=== PATIENT | female | born 1965 | race Caucasian/White ===

== ENCOUNTER 2018-01-17 12:48 | Outpatient (CLI) | payer MEDICARE, MEDICAID ==
[~2018-01-17] VITALS: Ht 165.1 cm; Wt 103.4 kg
[~2018-01-17 12:48] MED LIST: ACHD5005 PO; ATEN25TA PO; BUPR300T PO; DICL75TA2 PO; DOXY50CA6 PO; ESCT10T PO; EST.625T PO; GBPN300C PO; HYDR-34 PO; LEVO750T24 PO; MS15TCR PO; PRD20T PO; SIMV40TA4 PO; SULF-222 PO; VANC5VIA5 IV; ZLP10T PO
[2018-01-17] MEDS ORDERED: methylPREDNISolone 80 MG/ML (DEPO MEDROL) VIAL ONE (12:54)
[2018-01-17 13:04] VITALS: BP 145/99
[2018-01-17 13:31] VITALS: BP 139/85
== END 2018-01-17 13:32 ==
LOC: CARD 12:48
PROVIDERS: ATTEND Pain Medicine Interventional Pain Medicine
DX: M54.16 Radiculopathy, lumbar region (principal); Z79.899 Other long term (current) drug therapy; I10 Essential (primary) hypertension; F32.9 Major depressive disorder, single episode, unspecified; G89.4 Chronic pain syndrome
CPT/HCPCS: 62323

== ENCOUNTER → 2018-04-11 | Outpatient (CLI) | payer MEDICARE, MEDICAID ==
[~2018-04-11] VITALS: Ht 165.1 cm; Wt 105.7 kg
[~2018-04-11] MED LIST changes: +LIDOCAINE 1% INJ 20 ML 20 ML VIAL ONE; +methylPREDNISolone 80 MG/ML (DEPO MEDROL) VIAL ONE
[2018-04-11 13:43] VITALS: BP 168/87
[2018-04-11 14:09] VITALS: BP 157/102
--- NOTE | 2018-04-11 22:55 | OPERATIVE REPORT ---
DATE OF SERVICE: 04/11/2018 DIAGNOSIS: Lumbar radiculopathy. PROCEDURE: Fluoroscopic guided interlaminar epidural steroid injection. PROCEDURE IN DETAIL: After obtaining informed consent from the patient, the patient's chart was reviewed. The patient was then brought to the procedure room and placed in the prone position. A timeout was performed. The back was prepped with antiseptic solution and under fluoro guidance, the patient's lumbar spine was identified at the level of L5-S1. The L5-S1 vertebra was identified with fluoro guidance and approximately 2 mL of 1.5% lidocaine solution was used to anesthetize the skin directly down to the pedicle of the L5-S1 and under fluoroscopic guidance, the tract was anesthetized up to the interlaminar space and the ligamentum flavum. This needle was withdrawn. Then, a 20-gauge 3.5 inch Tuohy needle was then directed following the same tract that was anesthetized with the spinal needle. Using loss of resistance, the epidural space was identified and then the syringe was switched for contrast solution which was injected, approximately 1 mL. After secondary confirmation of epidural access, another syringe was placed and 80 mg of Depo-Medrol was injected. The Tuohy needle was then flushed out with approximately 2 mL of the normal saline used from the loss of resistance syringe. Band-Aids were applied to all the procedure sites. The patient tolerated the procedure well and was taken to the recovery room in stable condition. COMPLICATIONS: None. Job ID: [id number] DocumentID: [id number] Dictated Date: 04/11/2018 14:08:59 Senior Financial Consultant Date: 04/11/2018 17:16:44 Dictated By: KORTNEY DOYLE DO
== END ==
LOC: CARD 13:10
PROVIDERS: ATTEND Pain Medicine Interventional Pain Medicine
DX: M54.16 Radiculopathy, lumbar region (principal)
CPT/HCPCS: 62323

== ENCOUNTER 2018-07-09 11:41 | Inpatient (IN) | payer MEDICARE, MEDICAID ==
[~2018-07-09] VITALS: Ht 165.1 cm; Wt 104.8 kg
[~2018-07-09 11:41] MED LIST changes: -LIDOCAINE 1% INJ 20 ML 20 ML VIAL ONE; -methylPREDNISolone 80 MG/ML (DEPO MEDROL) VIAL ONE
--- OUTSIDE RECORDS SUMMARY | 2018-07-09 12:27 | XMS REPORT ---
Author Author ENRIQUE SIMPSON [facility] Address Unknown Care Team Providers Care Paper Inspector Name Role Phone ENRIQUE SIMPSON Unavailable PROBLEMS Type Condition ICD9-CM Code ZIG71-GM Code Onset Dates Condition Status SNOMED Code Problem Unspecified breast screening V76.10 Active 068303587 Problem Pain in soft tissues of limb 729.5 Active 68473080 Problem Counseling on substance use and abuse V65.42 Active 997144005 Problem Cervicalgia 723.1 Active 20033086 Problem Dietary surveillance and counseling V65.3 Active 443716770 Problem Pain in joint, lower leg 719.46 Active 881929216 Problem Pain in joint, shoulder region 719.41 Active 032188752 Problem Pain in joint, pelvic region and thigh 719.45 Active 334068578 Problem Other and unspecified hyperlipidemia 272.4 Active 82583646 Problem Obesity, unspecified 278.00 Active 834521522 Problem Falling from high place on residential premises, undetermined whether accidentally or purposely inflicted E987.0 Active Problem Hormone replacement therapy (postmenopausal) V07.4 Active 821548784 Problem Family history of malignant neoplasm of gastrointestinal tract V16.0 Active 149300819 Problem Cellulitis and abscess of unspecified site 682.9 Active 071209902 Problem Unspecified disorder of skin and subcutaneous tissue 709.9 Active 78824360 Problem Acute bronchitis 466.0 Active 10310778 Problem Thoracic or lumbosacral neuritis or radiculitis, unspecified 724.4 Active 298141879 Problem Chest pain, unspecified 786.50 Active 48609122 Problem Enlargement of lymph nodes 785.6 Active 76034692 Problem Neck sprain and strain 847.0 Active 387180719 Problem Sprain and strain of unspecified site of knee and leg 844.9 Active 373373890 Problem Other malaise and fatigue 780.79 Active 818946703 Problem Unspecified sleep apnea 780.57 Active 38081617 Problem Abnormal weight gain 783.1 Active 172072147 Problem Rash and other nonspecific skin eruption 782.1 Active 589763907 ALLERGIES Substance Reaction Event Type Date Status codeine Unknown Non Drug Allergy Sep, Active Sulfa (sulfonamide Antibiotics) Unknown Non Drug Allergy Sep, Active SOCIAL HISTORY No smoking Hx information available PLAN OF CARE Activity Details Follow Up prn Reason:referral-back for crown VITAL SIGNS Height 65 in 2016-10-13 Blood pressure systolic 126 mmHg 2016-10-13 Blood pressure diastolic 70 mmHg 2016-10-13 MEDICATIONS Medication Instructions Dosage Frequency Start Date End Date Duration Status Simvastatin 40 mg take 1 tablet by Oral route 1 time per day in the evening Jan, Active Triamcinolone Acetonide 0.1 % apply a thin layer to the affected area(s) by Topical route 3 times per day dispense 60 gram tube Oct, Active Amoxicillin 500 MG Orally 3 times a day 1 capsule 8h Sep, Sep, 7 days Active Hydrocodone-Acetaminophen 5-500 MG Orally every 6 hrs 1 tablet as needed 6h Active Neurontin 600 mg take 1 tablet by Oral route 4 times per day Jul, Active Baclofen 20 mg 1 tablet by Oral route 3 times per day PRN Oct, Active Naproxen 500 MG Orally every 12 hrs 1 tablet as needed 12h Active Pristiq 25 MG Orally Once a day 2 tablets 24h Active RESULTS No Results PROCEDURES Procedure Date Ordered Related Diagnosis Body Site LTD ORAL EVALUATION - PROBLEM FOCUS Oct 13, 2016 INTRAORL-PERIAPICAL 1 FILM 06818 Oct 13, 2016 IMMUNIZATIONS No Known Immunizations
--- OUTSIDE RECORDS SUMMARY | 2018-07-09 12:27 | XMS REPORT | Continuity of Care Document ---
Author Author [facility] Organization [facility] Address Unknown Phone Unavailable Care Team Providers Care Stripper Cutter Machine Name Role Phone LIVE DIAZ ELDON PP Insurance Providers Payer Name Policy Number Subscriber Name Relationship Wps Medicare [id number] Marleny Amezquita V Self / Same As Patient Advance Directives Directive Response Recorded Date Advance Directives N 03/01/13 9:59pm Health Care Power of Scrip Clerk N 03/01/13 9:59pm Organ Donor Y 03/01/13 9:59pm Problems No Known Problems or Medical conditions. Family History History Response Recorded Date/Time Hx Family Cancer Y mother, maternal aunt, uncle, paternal grandparents 03/01/13 10:12pm Hx Family Breast Cancer Y aunt 03/01/13 10:12pm Hx Family Lung Cancer Y maternal aunt 02/08 10:12pm Hx Family Colorectal Cancer Y aunt 10:12pm Social History History Response Recorded Date/Time Alcohol Use Denies Use 03/01/13 10:04pm Recreational Drug Use N 03/01/13 10:04pm Recent Foreign Travel N 03/01/13 10:04pm Recent Infectious Disease Exposure N 02/08 10:04pm Allergies, Adverse Reactions, Alerts Allergen Type Severity Reaction Last Updated oxycodone HCl Allergy Mild 09/29/11 Sulfa(Sulfonamide Antibiotics) Allergy Mild 09/29/11 acetaminophen Allergy Mild 09/29/11 Medications Medication Dose Units Route Sig Qty Days Prednisone 20 Mg PO DAILY Levofloxacin 750 Mg PO DAILY 6 Simvastatin 40 Mg PO DAILY Bupropion HCl (Wellbutrin Xl) 1 Tab PO DAILY Estrogens Conjugated (Premarin Tab) 0.625 Mg PO DAILY Gabapentin (Neurontin) 300 Mg PO TID Escitalopram Oxalate (Lexapro) 1 Each PO DAILY Diclofenac Sodium 75 Mg PO BID Hydrocodone Bit/Acetaminophen (Hydrocodon-Acetaminophen 5-325) 1 Each PO PRN Doxycycline Monohydrate 100 Mg PO Atenolol (Tenormin 25 Mg) 1 Each PO DAILY Zolpidem Tartrate (Ambien 10 Mg) 10 Mg PO HS Immunizations Name Given Type Date of Pneumonia Vaccine 03/01/85 H Response Recorded Date/Time Status not known Unknown Results Test Date Result Interp. Ref. Range Activated Partial Thromboplast Time March 01, 2013 8:13pm 37 SEC H 24-35 Alanine Aminotransferase (ALT/SGPT) March 01, 2013 8:13pm 39 U/L N 30-65 Albumin March 01, 2013 8:13pm 3.8 G/DL N 3.4-5.0 Alkaline Phosphatase March 01, 2013 8:13pm 114 U/L N 50-136 Aspartate Amino Transf (AST/SGOT) March 01, 2013 8:13pm 21 U/L N 15-37 BUN/Creatinine Ratio March 01, 2013 8:13pm 19 - Basophils # (Auto) March 01, 2013 8:13pm 0.1 10^3/uL N 0.0-0.1 Basophils (%) (Auto) March 01, 2013 8:13pm 1 % N 0-10 Blood Urea Nitrogen March 01, 2013 8:13pm 17 MG/DL N 7-18 Calcium Level March 01, 2013 8:13pm 9.1 MG /DL N 8.5-10.1 Carbon Dioxide Level March 01, 2013 8:13pm 30 MMOL/L N 21-32 Chloride Level March 01, 2013 8:13pm 100 MMOL/L L 101-110 Cholesterol Level March 02, 2013 3:20am 215 MG/DL H -200 Creatine Kinase MB March 02, 2013 7:52am 0.6 NG/ML N 0.0-3.6 Creatinine March 01, 2013 8:13pm 0.9 MG/ DL N 0.6-1.3 D-Dimer March 01, 2013 8:13pm < 0.22 UG/ ML 0.00-0.49 Eosinophils # (Auto) March 01, 2013 8:13pm 0.2 10^3/uL N 0.0-0.3 Eosinophils (%) (Auto) March 01, 2013 8:13pm 2 % N 0-10 Glucose Level March 01, 2013 8:13pm 93 MG/ DL N 74-106 HDL Cholesterol March 02, 2013 3:20am 46 MG/DL N 35-60 Hematocrit March 01, 2013 8:13pm 40 % N 35-52 Hemoglobin March 01, 2013 8:13pm 13.5 G/ DL N 11.5-16.0 LDL Cholesterol March 02, 2013 3:20am 108 MG/DL N 0-129 Lymphocytes # (Auto) March 01, 2013 8:13pm 6.6 X 10^3 H 1.0-4.0 Lymphocytes (%) (Auto) March 01, 2013 8:13pm 52 % H 12-44 Magnesium Level March 01, 2013 8:13pm 1.9 MG/DL N 1.8-2.4 Mean Corpuscular Hemoglobin March 01, 2013 8:13pm 30 PG N 25-34 Mean Corpuscular Hemoglobin Concent March 01, 2013 8:13pm 33 G/DL N 32-36 Mean Corpuscular Volume March 01, 2013 8:13pm 90 FL N 80-99 Mean Platelet Volume March 01, 2013 8:13pm 10.2 FL N 7.4-10.4 Monocytes # (Auto) March 01, 2013 8:13pm 0.7 X 10^3 N 0.0-1.0 Monocytes (%) (Auto) March 01, 2013 8:13pm 6 % N 0-12 Myoglobin March 01, 2013 8:13pm 48 UG/L N 10-92 Neutrophils # (Auto) March 01, 2013 8:13pm 4.9 X 10^3 N 1.8-7.8 Neutrophils (%) (Auto) March 01, 2013 8:13pm 39 % L 42-75 Platelet Count March 01, 2013 8:13pm 318 10^3/uL N 130-400 Potassium Level March 01, 2013 8:13pm 3.8 MMOL/L N 3.6-5.0 Prothrombin Time March 01, 2013 8:13pm 12.5 SEC N 12.2-14.7 Red Blood Count March 01, 2013 8:13pm 4.51 10^6/uL N 4.35-5.85 Red Cell Distribution Width March 01, 2013 8:13pm 13.7 % N 10.0-14.5 Sodium Level March 01, 2013 8:13pm 135 MMOL/L N 135-145 Total Bilirubin March 01, 2013 8:13pm 0.2 MG/DL N 0.0-1.0 Total Creatine Kinase March 02, 2013 7:52am 52 U/L N 1-159 Total Protein March 01, 2013 8:13pm 7.9 G/ DL N 6.4-8.2 Triglycerides Level March 02, 2013 3:20am 307 MG/DL H 30.0-150.0 Troponin I March 02, 2013 7:52am < 0.10 NG /ML 0.00-0.10 VLDL Cholesterol March 02, 2013 3:20am 61 MG/DL H 5-40 White Blood Count March 01, 2013 8:13pm 12.5 10^3/uL H 4.3-11.0 Pro-B-Type Natriuretic Peptide March 01, 2013 8:13pm 280.4 PG/ML H -125 Estimat Glomerular Filtration Rate March 01, 2013 8:13pm > 60 - INR Comment March 01, 2013 8:13pm 0.9 N 0.8-1.4 Procedures Procedure Code Date DIAGNOSTIC COLONOSCOPY 33918 01/04/10 Lice/Scabies Examination 05/06/09 Encounters Encounter Location Date/Time Departed Emergency Room [facility] 12 :00am
--- OUTSIDE RECORDS SUMMARY | 2018-07-09 12:27 | XMS REPORT ---
Author Author ELVIRA CLEMONS [facility] [place] eClinicalWorks Address Unknown Phone Unavailable Care Team Providers Care Machine Deburrer Name Role Phone ELVIRA CLEMONS CP Unavailable Allergies No Known Allergies Problems Problem Type Condition ICD-9 Code Onset Dates Condition Status Assessment Dental examination V72.2 Active Problem Chest pain, unspecified 786.50 Active Problem Rash and other nonspecific skin eruption 782.1 Active Problem Abnormal weight gain 783.1 Active Problem Pain in joint, shoulder region 719.41 Active Problem Pain in joint, lower leg 719.46 Active Problem Other malaise and fatigue 780.79 Active Problem Dietary surveillance and counseling V65.3 Active Problem Counseling on substance use and abuse V65.42 Active Problem Family history of malignant neoplasm of gastrointestinal tract V16.0 Active Problem Thoracic or lumbosacral neuritis or radiculitis, unspecified 724.4 Active Problem Other and unspecified hyperlipidemia 272.4 Active Problem Unspecified sleep apnea 780.57 Active Problem Pain in soft tissues of limb 729.5 Active Problem Acute bronchitis 466.0 Active Problem Unspecified disorder of skin and subcutaneous tissue 709.9 Active Problem Unspecified breast screening V76.10 Active Problem Pain in joint, pelvic region and thigh 719.45 Active Problem Enlargement of lymph nodes 785.6 Active Problem Obesity, unspecified 278.00 Active Problem Cellulitis and abscess of unspecified site 682.9 Active Problem Cervicalgia 723.1 Active Problem Falling from high place on residential premises, undetermined whether accidentally or purposely inflicted E987.0 Active Problem Sprain and strain of unspecified site of knee and leg 844.9 Active Problem Hormone replacement therapy (postmenopausal) V07.4 Active Problem Neck sprain and strain 847.0 Active Medications No Known Medications Procedures Procedure Coding System Code Date INTRAORL-PERIAPICAL 1 FILM 37595 CPT-4 D0220 Jul 08, 2015 BITEWING - SINGLE FILM CPT-4 D0270 Jul 08, 2015 LTD ORAL EVALUATION - PROBLEM FOCUS CPT-4 D0140 Jul 08, 2015 EXTRAC ERUPTED TOOTH/EXPOSED ROOT CPT-4 D7140 Jul 08, 2015 Results No Known Results Summary Purpose eClinicalWorks Submission
--- OUTSIDE RECORDS SUMMARY | 2018-07-09 12:27 | XMS REPORT | Continuity of Care Document ---
Author Author [facility] Organization [facility] Address Unknown Phone Unavailable Care Team Providers Care Frame Sample And Pattern Supervisor Name Role Phone LIVE DIAZ ELDON PP Insurance Providers Payer Name Policy Number Subscriber Name Relationship Wps Medicare [id number] Marleny Amezquita V Self / Same As Patient Advance Directives Directive Response Recorded Date Advance Directives N 03/01/13 9:59pm Health Care Power of Commercial Lines Account Assistant N 03/01/13 9:59pm Organ Donor Y 03/01/13 [...] 0.8-1.4 Procedures Procedure Code Date DIAGNOSTIC COLONOSCOPY 16485 01/04/10 Lice/Scabies Examination 05/06/09 Encounters Encounter Location Date/Time Departed Emergency Room [facility] 12 :00am
--- OUTSIDE RECORDS SUMMARY | 2018-07-09 12:28 | XMS REPORT | Continuity of Care Document ---
Author Author [facility] Organization [facility] Address Unknown Phone Unavailable Care Team Providers Care Relief Map Modeler Name Role Phone JOE LIVE Ankur COLÓN PP Insurance Providers Payer Name Policy Number Subscriber Name Relationship [facility] [id number] Marleny Amezquita V Self / Same As Patient s Medicare [id number] Marleny Amezquita V Self / Same As Patient Advance Directives Directive Response Recorded Date Advance Directives N 06/28/13 6:03pm Health Care Power of Jitney Driver N 06/28/13 8:20am Organ Donor N 06/28/13 6:03pm Problems No Known Problems or Medical conditions. Family History History Response Recorded Date/Time Hx Family Cancer Y GRANDMOTHER AND MOTHER COLON CA 06/28/13 6:09pm Hx Family Breast Cancer Y aunt 03/01/13 10:12pm Hx Family Lung Cancer Y maternal aunt 02/08 10:12pm Hx Family Colorectal Cancer Y aunt 10:12pm Hx Family Cardiac Disorders Y DAD HEART ATTACK 06/28/13 6:09pm Hx Family Stroke Y maternal grandfather 03/01/13 10:12pm Hx Family Myocardial Infarction Y father - stents, and pacemaker needed, grandfather bypass surgery. 03/01/13 10: 12pm Social History History Response Recorded Date/Time Alcohol Use Denies Use 06/28/13 6:03pm Recreational Drug Use N 06/28/13 6:03pm Recent Foreign Travel N 06/28/13 6:03pm Recent Infectious Disease Exposure N 6:03pm Hospitalization with Isolation Denies 02/08 9:40pm Sexually Transmitted Disease N 06/28/13 6 :03pm HIV/AIDS N 06/28/13 6:03pm Allergies, Adverse Reactions, Alerts Allergen Type Severity Reaction Last Updated oxycodone HCl Allergy Mild 09/29/11 acetaminophen Allergy Mild 09/29/11 Medications Medication Dose Units Route Sig Qty Days Vancomycin Hcl (Vancomycin Injection) 1000 Mg IV Q12H 1 Acetaminophen/Hydrocodone Bitart (Hydrocodone-Apap 7.5-325 Mg Tb) 1 - 2 Each PO Q6HR PRN Simvastatin 40 Mg PO DAILY Bupropion HCl (Wellbutrin Xl) 1 Tab PO DAILY Estrogens Conjugated (Premarin Tab) 0.625 Mg PO DAILY Gabapentin (Neurontin) 600 Mg PO TID Escitalopram Oxalate (Lexapro) 1 Each PO DAILY Diclofenac Sodium 75 Mg PO BID Trimethoprim/Sulfamethoxazole (Bactrim Ds) 1 Ea PO BID Prednisone 20 Mg PO DAILY Levofloxacin 750 Mg PO DAILY 6 Hydrocodone Bit/Acetaminophen (Hydrocodon-Acetaminophen 5-325) 1 Each PO PRN Doxycycline Monohydrate 100 Mg PO Atenolol (Tenormin 25 Mg) 1 Each PO DAILY Zolpidem Tartrate (Ambien 10 Mg) 10 Mg PO HS Immunizations Name Given Type Date of Pneumonia Vaccine 06/28/11 H Response Recorded Date/Time Status not known Unknown Results Test Date Result Interp. Ref. Range Activated Partial Thromboplast Time March 01, 2013 8:13pm 37 SEC H 24-35 Alanine Aminotransferase (ALT/SGPT) June 28, 2013 8:50am 47 U/L N 30-65 Albumin June 28, 2013 8:50am 3.5 G/DL N 3.4-5.0 Alkaline Phosphatase June 28, 2013 8:50am 127 U/L N 50-136 Aspartate Amino Transf (AST/SGOT) June 28, 2013 8:50am 26 U/L N 15-37 BUN/Creatinine Ratio June 28, 2013 8:50am 18 - Band Neutrophils June 28, 2013 8:50am 0 % - Basophils # (Auto) June 28, 2013 8:50am 0.0 10^3/uL N 0.0-0.1 Basophils % (Manual) June 28, 2013 8:50am 0 % - Basophils (%) (Auto) June 28, 2013 8:50am 0 % N 0-10 Blood Urea Nitrogen June 28, 2013 8:50am 14 MG/DL N 7-18 Calcium Level June 28, 2013 8:50am 9.2 MG/DL N 8.5-10.1 Carbon Dioxide Level June 28, 2013 8:50am 27 MMOL/L N 21-32 Chloride Level June 28, 2013 8:50am 101 MMOL/L N 101-110 Cholesterol Level March 02, 2013 3:20am 215 MG/DL H -200 Creatine Kinase MB March 02, 2013 7:52am 0.6 NG/ML N 0.0-3.6 Creatinine June 28, 2013 8:50am 0.8 MG /DL N 0.6-1.3 D-Dimer March 01, 2013 8:13pm < 0.22 UG/ ML 0.00-0.49 Eosinophils # (Auto) June 28, 2013 8:50am 0.2 10^3/uL N 0.0-0.3 Eosinophils % (Manual) June 28, 2013 8:50am 0 % - Eosinophils (%) (Auto) June 28, 2013 8:50am 1 % N 0-10 Glucose Level June 28, 2013 8:50am 96 MG/DL N 74-106 HDL Cholesterol March 02, 2013 3:20am 46 MG/DL N 35-60 Hematocrit June 28, 2013 8:50am 40 % N 35-52 Hemoglobin June 28, 2013 8:50am 13.3 G /DL N 11.5-16.0 LDL Cholesterol March 02, 2013 3:20am 108 MG/DL N 0-129 Lymphocytes # (Auto) June 28, 2013 8:50am 3.6 X 10^3 N 1.0-4.0 Lymphocytes % (Manual) June 28, 2013 8:50am 29 % - Lymphocytes (%) (Auto) June 28, 2013 8:50am 24 % N 12-44 Magnesium Level March 01, 2013 8:13pm 1.9 MG/DL N 1.8-2.4 Mean Corpuscular Hemoglobin June 28, 2013 8:50am 30 PG N 25-34 Mean Corpuscular Hemoglobin Concent June 28, 2013 8:50am 33 G/DL N 32-36 Mean Corpuscular Volume June 28, 2013 8:50am 91 FL N 80-99 Mean Platelet Volume June 28, 2013 8:50am 10.1 FL N 7.4-10.4 Monocytes # (Auto) June 28, 2013 8:50am 1.2 X 10^3 H 0.0-1.0 Monocytes % (Manual) June 28, 2013 8:50am 7 % - Monocytes (%) (Auto) June 28, 2013 8:50am 8 % N 0-12 Myoglobin March 01, 2013 8:13pm 48 UG/L N 10-92 Neutrophils # (Auto) June 28, 2013 8:50am 9.8 X 10^3 H 1.8-7.8 Neutrophils % (Manual) June 28, 2013 8:50am 64 % - Neutrophils (%) (Auto) June 28, 2013 8:50am 66 % N 42-75 Platelet Count June 28, 2013 8:50am 298 10^3/uL N 130-400 Potassium Level June 28, 2013 8:50am 3.9 MMOL/L N 3.6-5.0 Prothrombin Time March 01, 2013 8:13pm 12.5 SEC N 12.2-14.7 Red Blood Count June 28, 2013 8:50am 4.39 10^6/uL N 4.35-5.85 Red Cell Distribution Width June 28, 2013 8:50am 13.4 % N 10.0-14.5 Sodium Level June 28, 2013 8:50am 137 MMOL/L N 135-145 Total Bilirubin June 28, 2013 8:50am 0.3 MG/DL N 0.0-1.0 Total Creatine Kinase March 02, 2013 7:52am 52 U/L N 1-159 Total Protein June 28, 2013 8:50am 7.7 G/DL N 6.4-8.2 Triglycerides Level March 02, 2013 3:20am 307 MG/DL H 30.0-150.0 Troponin I March 02, 2013 7:52am < 0.10 NG /ML 0.00-0.10 VLDL Cholesterol March 02, 2013 3:20am 61 MG/DL H 5-40 White Blood Count June 28, 2013 8:50am 14.8 10^3/uL H 4.3-11.0 Pro-B-Type Natriuretic Peptide March 01, 2013 8:13pm 280.4 PG/ML H -125 Estimat Glomerular Filtration Rate June 28, 2013 8:50am > 60 - Blood Morphology Comment June 28, 2013 8:50am NORMAL - INR Comment March 01, 2013 8:13pm 0.9 N 0.8-1.4 Procedures Procedure Code Date DIAGNOSTIC COLONOSCOPY 13618 01/04/10 Lice/Scabies Examination 05/06/09 Encounters Encounter Location Date/Time Discharged Inpatient [facility] 2:20pm Departed Emergency Room [facility] 12 :00am
--- OUTSIDE RECORDS SUMMARY | 2018-07-09 12:28 | XMS REPORT | Continuity of Care Document ---
Author Author [facility] Organization [facility] Address Unknown Phone Unavailable Care Team Providers Care Precision Dyer Name Role Phone PHILLY KENNY PP Insurance Providers Payer Name Policy Number Subscriber Name Relationship [facility] [id number] Marleny Amezquita V Self / Same As Patient W[employer] Medicare [id number] Marleny Amezquita V Self / Same As Patient Advance Directives Directive Response Recorded Date Advance Directives N 07/03/13 12:40pm Health Care Power of Slat Pickler N 07/03/13 12:40pm Organ Donor N 07/03/13 12:40pm Problems No Known Problems or Medical conditions. [...] Recorded Date/Time Status not known Unknown Results No Known Relevant Diagnostic Tests, Laboratory Data and/or Discharge Summary. Procedures Procedure Code Date DIAGNOSTIC COLONOSCOPY 36176 01/04/10 OTHER SKIN & SUBQ I D 86.04 06/29/13 Encounters Encounter Location Date/Time Registered Emergency Room [facility] 06/28/13 Departed Emergency Room [facility] 12 :00am
--- OUTSIDE RECORDS SUMMARY | 2018-07-09 12:28 | XMS REPORT | Continuity of Care Document ---
Author Author [facility] Organization [facility] Address Unknown Phone Unavailable Care Team Providers Care Wood Gluer Name Role Phone PHILLY KENNY PP Insurance Providers Payer Name Policy Number Subscriber Name Relationship [facility] [id number] Marleny Amezquita V Self / Same As Patient Wps Medicare [id number] Marleny Amezquita V Self / Same As Patient Advance Directives Directive Response Recorded Date Advance Directives N 07/03/13 12:40pm Health Care Power of New Patient Escort N 07/03/13 12:40pm Organ Donor N 07/03/13 [...] Summary. Procedures Procedure Code Date DIAGNOSTIC COLONOSCOPY 66739 01/04/10 OTHER SKIN & SUBQ I D 86.04 06/29/13 Encounters Encounter Location Date/Time Discharged Inpatient [facility] 2:20pm Departed Emergency Room [facility] 12 :00am
--- OUTSIDE RECORDS SUMMARY | 2018-07-09 12:32 | XMS REPORT | Continuity of Care Document ---
Author Author [facility] Address Unknown Phone Unavailable Allergies Active Description Code Type Severity Reaction Onset Reported/Identified Relationship to Patient Clinical Status Yes codeine Drug Allergy N/A N/A 12/17/2008 Yes Percocet Drug Allergy N/A N/A 12/17/2008 Yes codeine Drug Allergy 12/17/2008 Yes Percocet 7.5/325 Drug Allergy 12/17/2008 Yes acetaminophen [id number] Drug Allergy Mild N/A 09/29/2011 Yes oxycodone HCl [id number] Drug Allergy Mild N/A 09/29/2011 Yes Sulfa (Sulfonamide Antibiotics) Drug Allergy N/A N/A 04/09/2013 Medications There is no data. Problems Date Dx Coded Attending Type Code Diagnosis Diagnosed By 05/22/2008 840.9 SPRAIN/STRAIN SHOULDER/ARM 05/22/2008 840.9 SPRAIN/STRAIN SHOULDER/ARM 05/22/2008 NAHEED MALHOTRA, ADÁN 840.9 SPRAIN/STRAIN SHOULDER/ARM 05/22/2008 840.9 SPRAIN/STRAIN SHOULDER/ARM 05/22/2008 840.9 SPRAIN/STRAIN SHOULDER/ARM 05/22/2008 840.9 SPRAIN/STRAIN SHOULDER/ARM 05/22/2008 840.9 SPRAIN/STRAIN SHOULDER/ARM 05/22/2008 840.9 SPRAIN/STRAIN SHOULDER/ARM 05/22/2008 840.9 SPRAIN/STRAIN SHOULDER/ARM 05/22/2008 LIVE DIAZ APRN 840.9 SPRAIN/STRAIN SHOULDER/ARM 05/22/2008 LIVE DIAZ APRN 840.9 SPRAIN/STRAIN SHOULDER/ARM 05/22/2008 MARIAH MALHOTRA, MILO Ponce 840.9 SPRAIN/STRAIN SHOULDER/ARM 05/22/2008 LIVE DIAZ APRN 840.9 SPRAIN/STRAIN SHOULDER/ARM 05/22/2008 LIVE DIAZ APRN 840.9 SPRAIN/STRAIN SHOULDER/ARM 05/22/2008 LIVE DIAZ APRN T 840.9 SPRAIN/STRAIN SHOULDER/ARM 05/22/2008 KENNY DO, PHILLY K 840.9 SPRAIN/STRAIN SHOULDER/ARM 05/22/2008 LIVE DIAZ APRN T 840.9 SPRAIN/STRAIN SHOULDER/ARM 05/22/2008 LIVE DIAZ APRN T 840.9 SPRAIN/STRAIN SHOULDER/ARM 05/22/2008 LIVE DIAZ APRN T 840.9 SPRAIN/STRAIN SHOULDER/ARM 05/22/2008 LIVE DIAZ APRN T 840.9 SPRAIN/STRAIN SHOULDER/ARM 05/22/2008 LIVE DIAZ APRN T 840.9 SPRAIN/STRAIN SHOULDER/ARM 05/22/2008 LIVE DIAZ APRN T 840.9 SPRAIN/STRAIN SHOULDER/ARM 05/22/2008 KENNY DO, PHILLY K 840.9 SPRAIN/STRAIN SHOULDER/ARM 05/22/2008 LIVE DIAZ APRN T 840.9 SPRAIN/STRAIN SHOULDER/ARM 05/22/2008 TAE ARBOLEDA APRN A 840.9 SPRAIN/STRAIN SHOULDER/ARM 05/22/2008 KENNY DO, PHILLY K 840.9 SPRAIN/STRAIN SHOULDER/ARM 05/22/2008 KENNY DO, PHILLY K 840.9 SPRAIN/STRAIN SHOULDER/ARM 05/22/2008 WHITE DDS, CHIO D 840.9 SPRAIN/STRAIN SHOULDER/ARM 05/22/2008 WHITE DDS, CHIO D 840.9 SPRAIN/STRAIN SHOULDER/ARM 05/22/2008 WHITE DDS, KELLEY Watkins 840.9 SPRAIN/STRAIN SHOULDER/ARM 05/22/2008 LIVE DIAZ APRN T 840.9 SPRAIN/STRAIN SHOULDER/ARM 06/15/2008 465.9 UPPER RESPIRATORY INFECTION 06/15/2008 465.9 UPPER RESPIRATORY INFECTION 06/15/2008 NAHEED MALHOTRA, ADÁN 465.9 UPPER RESPIRATORY INFECTION 06/15/2008 465.9 UPPER RESPIRATORY INFECTION 06/15/2008 465.9 UPPER RESPIRATORY INFECTION 06/15/2008 465.9 UPPER RESPIRATORY INFECTION 06/15/2008 465.9 UPPER RESPIRATORY INFECTION 06/15/2008 465.9 UPPER RESPIRATORY INFECTION 06/15/2008 465.9 UPPER RESPIRATORY INFECTION 06/15/2008 LIVE DIAZ APRN T 465.9 UPPER RESPIRATORY INFECTION 06/15/2008 JOE WIRE FRAME DIPPER, LIVE T 465.9 UPPER RESPIRATORY INFECTION 06/15/2008 MARIAH MALHOTRA, MILO Ponce 465.9 UPPER RESPIRATORY INFECTION 06/15/2008 JOE WIRE FRAME DIPPER, LIVE T 465.9 UPPER RESPIRATORY INFECTION 06/15/2008 JOE WIRE FRAME DIPPER, LIVE T 465.9 UPPER RESPIRATORY INFECTION 06/15/2008 JOE WIRE FRAME DIPPER, LIVE T 465.9 UPPER RESPIRATORY INFECTION 06/15/2008 KENNY DO, PHILLY K 465.9 UPPER RESPIRATORY INFECTION 06/15/2008 JOE WIRE FRAME DIPPER, LIVE T 465.9 UPPER RESPIRATORY INFECTION 06/15/2008 JOE WIRE FRAME DIPPER, LIVE T 465.9 UPPER RESPIRATORY INFECTION 06/15/2008 JOE WIRE FRAME DIPPER, LIVE T 465.9 UPPER RESPIRATORY INFECTION 06/15/2008 JOE WIRE FRAME DIPPER, LIVE T 465.9 UPPER RESPIRATORY INFECTION 06/15/2008 JOE WIRE FRAME DIPPER, LIVE T 465.9 UPPER RESPIRATORY INFECTION 06/15/2008 JOE WIRE FRAME DIPPER, LIVE T 465.9 UPPER RESPIRATORY INFECTION 06/15/2008 KENNY DO, PHILLY K 465.9 UPPER RESPIRATORY INFECTION 06/15/2008 JOE WIRE FRAME DIPPER, LIVE T 465.9 UPPER RESPIRATORY INFECTION 06/15/2008 ROBLES WIRE FRAME DIPPER, TAE A 465.9 UPPER RESPIRATORY INFECTION 06/15/2008 KENNY DO, PHILLY K 465.9 UPPER RESPIRATORY INFECTION 06/15/2008 KENNY DO, PHILLY K 465.9 UPPER RESPIRATORY INFECTION 06/15/2008 WHITE DDS, CHIO D 465.9 UPPER RESPIRATORY INFECTION 06/15/2008 WHITE DDS, CHIO D 465.9 UPPER RESPIRATORY INFECTION 06/15/2008 WHITE DDS, KELLEY J 465.9 UPPER RESPIRATORY INFECTION 06/15/2008 JOE WIRE FRAME DIPPER, LIVE T 465.9 UPPER RESPIRATORY INFECTION 06/26/2008 726.90 ENTHESOPATHY OF UNSPECIFIED SITE 06/26/2008 726.90 ENTHESOPATHY OF UNSPECIFIED SITE 06/26/2008 NAHEED MALHOTRA, ADÁN 726.90 ENTHESOPATHY OF UNSPECIFIED SITE 06/26/2008 726.90 ENTHESOPATHY OF UNSPECIFIED SITE 06/26/2008 726.90 ENTHESOPATHY OF UNSPECIFIED SITE 06/26/2008 726.90 ENTHESOPATHY OF UNSPECIFIED SITE 06/26/2008 726.90 ENTHESOPATHY OF UNSPECIFIED SITE 06/26/2008 726.90 ENTHESOPATHY OF UNSPECIFIED SITE 06/26/2008 726.90 ENTHESOPATHY OF UNSPECIFIED SITE 06/26/2008 LIVE DIAZ APRN 726.90 ENTHESOPATHY OF UNSPECIFIED SITE 06/26/2008 LIVE DIAZ APRN 726.90 ENTHESOPATHY OF UNSPECIFIED SITE 06/26/2008 MILO LEMUS MD 726.90 ENTHESOPATHY OF UNSPECIFIED SITE 06/26/2008 LIVE DIAZ APRN 726.90 ENTHESOPATHY OF UNSPECIFIED SITE 06/26/2008 LIVE DIAZ APRN 726.90 ENTHESOPATHY OF UNSPECIFIED SITE 06/26/2008 LIVE DIAZ APRN 726.90 ENTHESOPATHY OF UNSPECIFIED SITE 06/26/2008 MARK KENNY DOA K 726.90 ENTHESOPATHY OF UNSPECIFIED SITE 06/26/2008 LIVE DIAZ APRN 726.90 ENTHESOPATHY OF UNSPECIFIED SITE 06/26/2008 LIVE DIAZ APRN 726.90 ENTHESOPATHY OF UNSPECIFIED SITE 06/26/2008 LIVE DIAZ APRN 726.90 ENTHESOPATHY OF UNSPECIFIED SITE 06/26/2008 LIVE DIAZ APRN 726.90 ENTHESOPATHY OF UNSPECIFIED SITE 06/26/2008 LIVE DIAZ APRN 726.90 ENTHESOPATHY OF UNSPECIFIED SITE 06/26/2008 LIVE DIAZ APRN 726.90 ENTHESOPATHY OF UNSPECIFIED SITE 06/26/2008 MARK KENNY DOA K 726.90 ENTHESOPATHY OF UNSPECIFIED SITE 06/26/2008 LIVE DIAZ APRN 726.90 ENTHESOPATHY OF UNSPECIFIED SITE 06/26/2008 TAE ARBOLEDA APRN 726.90 ENTHESOPATHY OF UNSPECIFIED SITE 06/26/2008 KENNY DO PHILLY K 726.90 ENTHESOPATHY OF UNSPECIFIED SITE 06/26/2008 KENNY DO PHILLY K 726.90 ENTHESOPATHY OF UNSPECIFIED SITE 06/26/2008 CHIO COBB DDS 726.90 ENTHESOPATHY OF UNSPECIFIED SITE 06/26/2008 CHIO COBB DDS 726.90 ENTHESOPATHY OF UNSPECIFIED SITE 06/26/2008 KELLEY COBB DDS 726.90 ENTHESOPATHY OF UNSPECIFIED SITE 06/26/2008 LIVE DIAZ APRN 726.90 ENTHESOPATHY OF UNSPECIFIED SITE 07/01/2008 701.9 UNSPECIFIED HYPERTROPHIC AND ATROPHIC CONDITIONS OF SKIN 07/01/2008 701.9 UNSPECIFIED HYPERTROPHIC AND ATROPHIC CONDITIONS OF SKIN 07/01/2008 ADÁN FARFAN MD 701.9 UNSPECIFIED HYPERTROPHIC AND ATROPHIC CONDITIONS OF SKIN 07/01/2008 701.9 UNSPECIFIED HYPERTROPHIC AND ATROPHIC CONDITIONS OF SKIN 07/01/2008 701.9 UNSPECIFIED HYPERTROPHIC AND ATROPHIC CONDITIONS OF SKIN 07/01/2008 701.9 UNSPECIFIED HYPERTROPHIC AND ATROPHIC CONDITIONS OF SKIN 07/01/2008 701.9 UNSPECIFIED HYPERTROPHIC AND ATROPHIC CONDITIONS OF SKIN 07/01/2008 701.9 UNSPECIFIED HYPERTROPHIC AND ATROPHIC CONDITIONS OF SKIN 07/01/2008 701.9 UNSPECIFIED HYPERTROPHIC AND ATROPHIC CONDITIONS OF SKIN 07/01/2008 LIVE DIAZ APRN 701.9 UNSPECIFIED HYPERTROPHIC AND ATROPHIC CONDITIONS OF SKIN 07/01/2008 LIVE DIAZ APRN 701.9 UNSPECIFIED HYPERTROPHIC AND ATROPHIC CONDITIONS OF SKIN 07/01/2008 MILO LEMUS MD 701.9 UNSPECIFIED HYPERTROPHIC AND ATROPHIC CONDITIONS OF SKIN 07/01/2008 LIVE DIAZ APRN T 701.9 UNSPECIFIED HYPERTROPHIC AND ATROPHIC CONDITIONS OF SKIN 07/01/2008 LIVE DIAZ APRN T 701.9 UNSPECIFIED HYPERTROPHIC AND ATROPHIC CONDITIONS OF SKIN 07/01/2008 LIVE DIAZ APRN T 701.9 UNSPECIFIED HYPERTROPHIC AND ATROPHIC CONDITIONS OF SKIN 07/01/2008 PHILLY KENNY DO 701.9 UNSPECIFIED HYPERTROPHIC AND ATROPHIC CONDITIONS OF SKIN 07/01/2008 LIVE DIAZ APRN 701.9 UNSPECIFIED HYPERTROPHIC AND ATROPHIC CONDITIONS OF SKIN 07/01/2008 LIVE DIAZ APRN T 701.9 UNSPECIFIED HYPERTROPHIC AND ATROPHIC CONDITIONS OF SKIN 07/01/2008 LIVE DIAZ APRN T 701.9 UNSPECIFIED HYPERTROPHIC AND ATROPHIC CONDITIONS OF SKIN 07/01/2008 LIVE DIAZ APRN T 701.9 UNSPECIFIED HYPERTROPHIC AND ATROPHIC CONDITIONS OF SKIN 07/01/2008 LIVE DIAZ APRN T 701.9 UNSPECIFIED HYPERTROPHIC AND ATROPHIC CONDITIONS OF SKIN 07/01/2008 LIVE DIAZ APRN T 701.9 UNSPECIFIED HYPERTROPHIC AND ATROPHIC CONDITIONS OF SKIN 07/01/2008 PHILLY KENNY DO K 701.9 UNSPECIFIED HYPERTROPHIC AND ATROPHIC CONDITIONS OF SKIN 07/01/2008 LIVE DIAZ APRN T 701.9 UNSPECIFIED HYPERTROPHIC AND ATROPHIC CONDITIONS OF SKIN 07/01/2008 TAE ARBOLEDA APRN A 701.9 UNSPECIFIED HYPERTROPHIC AND ATROPHIC CONDITIONS OF SKIN 07/01/2008 KENNY DOMARKA K 701.9 UNSPECIFIED HYPERTROPHIC AND ATROPHIC CONDITIONS OF SKIN 07/01/2008 KENNY DO, PHLILY K 701.9 UNSPECIFIED HYPERTROPHIC AND ATROPHIC CONDITIONS OF SKIN 07/01/2008 WHITE DDS, CHIO D 701.9 UNSPECIFIED HYPERTROPHIC AND ATROPHIC CONDITIONS OF SKIN 07/01/2008 WHITE DDS, CHIO D 701.9 UNSPECIFIED HYPERTROPHIC AND ATROPHIC CONDITIONS OF SKIN 07/01/2008 WHITE DDS, KELLEY J 701.9 UNSPECIFIED HYPERTROPHIC AND ATROPHIC CONDITIONS OF SKIN 07/01/2008 LIVE DIAZ APRN 701.9 UNSPECIFIED HYPERTROPHIC AND ATROPHIC CONDITIONS OF SKIN 07/15/2008 338.4 CHRONIC PAIN SYNDROME 07/15/2008 V72.31 CLIENT ONBOARDING ANALYST EXAM, ROUTINE 07/15/2008 338.4 CHRONIC PAIN SYNDROME 07/15/2008 V72.31 CLIENT ONBOARDING ANALYST EXAM, ROUTINE 07/15/2008 ADÁN FARFAN MD 338.4 CHRONIC PAIN SYNDROME 07/15/2008 ADÁN FARFAN MD V72.31 CLIENT ONBOARDING ANALYST EXAM, ROUTINE 07/15/2008 338.4 CHRONIC PAIN SYNDROME 07/15/2008 V72.31 CLIENT ONBOARDING ANALYST EXAM, ROUTINE 07/15/2008 338.4 CHRONIC PAIN SYNDROME 07/15/2008 V72.31 CLIENT ONBOARDING ANALYST EXAM, ROUTINE 07/15/2008 338.4 CHRONIC PAIN SYNDROME 07/15/2008 V72.31 CLIENT ONBOARDING ANALYST EXAM, ROUTINE 07/15/2008 338.4 CHRONIC PAIN SYNDROME 07/15/2008 V72.31 CLIENT ONBOARDING ANALYST EXAM, ROUTINE 07/15/2008 338.4 CHRONIC PAIN SYNDROME 07/15/2008 V72.31 CLIENT ONBOARDING ANALYST EXAM, ROUTINE 07/15/2008 338.4 CHRONIC PAIN SYNDROME 07/15/2008 V72.31 CLIENT ONBOARDING ANALYST EXAM, ROUTINE 07/15/2008 LIVE DIAZ APRN 338.4 CHRONIC PAIN SYNDROME 07/15/2008 LIVE DIAZ APRN V72.31 CLIENT ONBOARDING ANALYST EXAM, ROUTINE 07/15/2008 LIVE DIAZ APRN 338.4 CHRONIC PAIN SYNDROME 07/15/2008 LIVE DIAZ APRN V72.31 CLIENT ONBOARDING ANALYST EXAM, ROUTINE 07/15/2008 MILO LEMUS MD 338.4 CHRONIC PAIN SYNDROME 07/15/2008 DAVID LEMUS MDA M V72.31 CLIENT ONBOARDING ANALYST EXAM, ROUTINE 07/15/2008 LIVE DIAZ APRN T 338.4 CHRONIC PAIN SYNDROME 07/15/2008 LIVE DIAZ APRN T V72.31 CLIENT ONBOARDING ANALYST EXAM, ROUTINE 07/15/2008 LIVE DIAZ APRN T 338.4 CHRONIC PAIN SYNDROME 07/15/2008 LIVE DIAZ APRN T V72.31 CLIENT ONBOARDING ANALYST EXAM, ROUTINE 07/15/2008 LIVE DIAZ APRN T 338.4 CHRONIC PAIN SYNDROME 07/15/2008 LIVE DIAZ APRN T V72.31 CLIENT ONBOARDING ANALYST EXAM, ROUTINE 07/15/2008 KENNY DO PHILLY K 338.4 CHRONIC PAIN SYNDROME 07/15/2008 KENNY DO, PHILLY K V72.31 CLIENT ONBOARDING ANALYST EXAM, ROUTINE 07/15/2008 LIVE DIAZ APRN T 338.4 CHRONIC PAIN SYNDROME 07/15/2008 LIVE DIAZ APRN T V72.31 CLIENT ONBOARDING ANALYST EXAM, ROUTINE 07/15/2008 LIVE DIAZ APRN T 338.4 CHRONIC PAIN SYNDROME 07/15/2008 LIVE DIAZ APRN T V72.31 CLIENT ONBOARDING ANALYST EXAM, ROUTINE 07/15/2008 LIVE DIAZ APRN T 338.4 CHRONIC PAIN SYNDROME 07/15/2008 LIVE DIAZ APRN T V72.31 CLIENT ONBOARDING ANALYST EXAM, ROUTINE 07/15/2008 LIVE DIAZ APRN T 338.4 CHRONIC PAIN SYNDROME 07/15/2008 LIVE DIAZ APRN T V72.31 CLIENT ONBOARDING ANALYST EXAM, ROUTINE 07/15/2008 LIVE DIAZ APRN T 338.4 CHRONIC PAIN SYNDROME 07/15/2008 LIVE DIAZ APRN T V72.31 CLIENT ONBOARDING ANALYST EXAM, ROUTINE 07/15/2008 LIVE DIAZ APRN T 338.4 CHRONIC PAIN SYNDROME 07/15/2008 LIVE DIAZ APRN T V72.31 CLIENT ONBOARDING ANALYST EXAM, ROUTINE 07/15/2008 KENNY DO, PHILLY K 338.4 CHRONIC PAIN SYNDROME 07/15/2008 KENNY DO, PHILLY K V72.31 CLIENT ONBOARDING ANALYST EXAM, ROUTINE 07/15/2008 LIVE DIAZ APRN T 338.4 CHRONIC PAIN SYNDROME 07/15/2008 JOE RODRIGUEZ LIVE T V72.31 CLIENT ONBOARDING ANALYST EXAM, ROUTINE 07/15/2008 TAE ARBOLEDA APRN A 338.4 CHRONIC PAIN SYNDROME 07/15/2008 TAE ARBOLEDA APRN A V72.31 CLIENT ONBOARDING ANALYST EXAM, ROUTINE 07/15/2008 KENNY DO, PHILLY K 338.4 CHRONIC PAIN SYNDROME 07/15/2008 KENNY DO, PHILLY K V72.31 CLIENT ONBOARDING ANALYST EXAM, ROUTINE 07/15/2008 KENNY DO, PHILLY K 338.4 CHRONIC PAIN SYNDROME 07/15/2008 KENNY DO, PHILLY K V72.31 CLIENT ONBOARDING ANALYST EXAM, ROUTINE 07/15/2008 WHITE DDS, CHIO D 338.4 CHRONIC PAIN SYNDROME 07/15/2008 WHITE DDS, CHIO D V72.31 CLIENT ONBOARDING ANALYST EXAM, ROUTINE 07/15/2008 WHITE DDS, CHIO D 338.4 CHRONIC PAIN SYNDROME 07/15/2008 WHITE DDS, CHIO D V72.31 CLIENT ONBOARDING ANALYST EXAM, ROUTINE 07/15/2008 WHITE DDS, KELLEY J 338.4 CHRONIC PAIN SYNDROME 07/15/2008 WHITE DDS, KELLEY J V72.31 CLIENT ONBOARDING ANALYST EXAM, ROUTINE 07/15/2008 LIVE DIAZ APRN 338.4 CHRONIC PAIN SYNDROME 07/15/2008 LIVE DIAZ APRN V72.31 CLIENT ONBOARDING ANALYST EXAM, ROUTINE 08/05/2008 V70.0 GENERAL MEDICAL EXAM, ROUTINE, AT HEALTH CARE FACILITY 08/05/2008 V70.0 GENERAL MEDICAL EXAM, ROUTINE, AT HEALTH CARE FACILITY 08/05/2008 ADÁN FARFAN MD V70.0 GENERAL MEDICAL EXAM, ROUTINE, AT HEALTH CARE FACILITY 08/05/2008 V70.0 GENERAL MEDICAL EXAM, ROUTINE, AT HEALTH CARE FACILITY 08/05/2008 V70.0 GENERAL MEDICAL EXAM, ROUTINE, AT HEALTH CARE FACILITY 08/05/2008 V70.0 GENERAL MEDICAL EXAM, ROUTINE, AT HEALTH CARE FACILITY 08/05/2008 V70.0 GENERAL MEDICAL EXAM, ROUTINE, AT HEALTH CARE FACILITY 08/05/2008 V70.0 GENERAL MEDICAL EXAM, ROUTINE, AT HEALTH CARE FACILITY 08/05/2008 V70.0 GENERAL MEDICAL EXAM, ROUTINE, AT HEALTH CARE FACILITY 08/05/2008 LIVE DIAZ APRN V70.0 GENERAL MEDICAL EXAM, ROUTINE, AT HEALTH CARE FACILITY 08/05/2008 LIVE DIAZ APRN V70.0 GENERAL MEDICAL EXAM, ROUTINE, AT HEALTH CARE FACILITY 08/05/2008 MARIAH MALHOTRA, MILO Ponce V70.0 GENERAL MEDICAL EXAM, ROUTINE, AT HEALTH CARE FACILITY 08/05/2008 LIVE DIAZ APRN V70.0 GENERAL MEDICAL EXAM, ROUTINE, AT HEALTH CARE FACILITY 08/05/2008 JOE WIRE FRAME DIPPER, LIVE T V70.0 GENERAL MEDICAL EXAM, ROUTINE, AT HEALTH CARE FACILITY 08/05/2008 LIVE DIAZ APRN T V70.0 GENERAL MEDICAL EXAM, ROUTINE, AT HEALTH CARE FACILITY 08/05/2008 PHILLY KENNY DO K V70.0 GENERAL MEDICAL EXAM, ROUTINE, AT HEALTH CARE FACILITY 08/05/2008 JOE RODRIGUEZ LIVE T V70.0 GENERAL MEDICAL EXAM, ROUTINE, AT HEALTH CARE FACILITY 08/05/2008 LIVE DIAZ APRN T V70.0 GENERAL MEDICAL EXAM, ROUTINE, AT HEALTH CARE FACILITY 08/05/2008 JOE RODRIGUEZ LIVE T V70.0 GENERAL MEDICAL EXAM, ROUTINE, AT HEALTH CARE FACILITY 08/05/2008 JOE RODRIGUEZ LIVE T V70.0 GENERAL MEDICAL EXAM, ROUTINE, AT HEALTH CARE FACILITY 08/05/2008 JOE RODRIGUEZ, LIVE T V70.0 GENERAL MEDICAL EXAM, ROUTINE, AT HEALTH CARE FACILITY 08/05/2008 JOE RODRIGUEZ LIVE T V70.0 GENERAL MEDICAL EXAM, ROUTINE, AT HEALTH CARE FACILITY 08/05/2008 PHILLY KENNY DO V70.0 GENERAL MEDICAL EXAM, ROUTINE, AT HEALTH CARE FACILITY 08/05/2008 LIVE DIAZ APRN T V70.0 GENERAL MEDICAL EXAM, ROUTINE, AT HEALTH CARE FACILITY 08/05/2008 TAE ARBOLEDA APRN V70.0 GENERAL MEDICAL EXAM, ROUTINE, AT HEALTH CARE FACILITY 08/05/2008 PHILLY KENNY DO K V70.0 GENERAL MEDICAL EXAM, ROUTINE, AT HEALTH CARE FACILITY 08/05/2008 PHILLY KENNY DO K V70.0 GENERAL MEDICAL EXAM, ROUTINE, AT HEALTH CARE FACILITY 08/05/2008 CHIO COBB DDS V70.0 GENERAL MEDICAL EXAM, ROUTINE, AT HEALTH CARE FACILITY 08/05/2008 CHIO COBB DDS V70.0 GENERAL MEDICAL EXAM, ROUTINE, AT HEALTH CARE FACILITY 08/05/2008 KELLEY COBB DDS V70.0 GENERAL MEDICAL EXAM, ROUTINE, AT HEALTH CARE FACILITY 08/05/2008 LIVE DIAZ APRN T V70.0 GENERAL MEDICAL EXAM, ROUTINE, AT HEALTH CARE FACILITY 11/02/2008 709.1 VASCULAR DISORDERS OF SKIN 11/02/2008 709.1 VASCULAR DISORDERS OF SKIN 11/02/2008 NAHEED MALHOTRA, ADÁN 709.1 VASCULAR DISORDERS OF SKIN 11/02/2008 709.1 VASCULAR DISORDERS OF SKIN 11/02/2008 709.1 VASCULAR DISORDERS OF SKIN 11/02/2008 709.1 VASCULAR DISORDERS OF SKIN 11/02/2008 709.1 VASCULAR DISORDERS OF SKIN 11/02/2008 709.1 VASCULAR DISORDERS OF SKIN 11/02/2008 709.1 VASCULAR DISORDERS OF SKIN 11/02/2008 LIVE DIAZ APRN 709.1 VASCULAR DISORDERS OF SKIN 11/02/2008 LIVE DIAZ APRN 709.1 VASCULAR DISORDERS OF SKIN 11/02/2008 MILO LEMUS MD 709.1 VASCULAR DISORDERS OF SKIN 11/02/2008 LIVE DIAZ APRN 709.1 VASCULAR DISORDERS OF SKIN 11/02/2008 LIVE DIAZ APRN 709.1 VASCULAR DISORDERS OF SKIN 11/02/2008 LIVE DIAZ APRN 709.1 VASCULAR DISORDERS OF SKIN 11/02/2008 PHILLY KENNY DO K 709.1 VASCULAR DISORDERS OF SKIN 11/02/2008 LIVE DIAZ APRN 709.1 VASCULAR DISORDERS OF SKIN 11/02/2008 LIVE DIAZ APRN 709.1 VASCULAR DISORDERS OF SKIN 11/02/2008 LIVE DIAZ APRN 709.1 VASCULAR DISORDERS OF SKIN 11/02/2008 LIVE DIAZ APRN 709.1 VASCULAR DISORDERS OF SKIN 11/02/2008 LIVE DIAZ APRN 709.1 VASCULAR DISORDERS OF SKIN 11/02/2008 LIVE DIAZ APRN 709.1 VASCULAR DISORDERS OF SKIN 11/02/2008 MARK KENNY DOA K 709.1 VASCULAR DISORDERS OF SKIN 11/02/2008 LIVE DIAZ APRN 709.1 VASCULAR DISORDERS OF SKIN 11/02/2008 TAE ARBOLEDA APRN 709.1 VASCULAR DISORDERS OF SKIN 11/02/2008 KENNY DO PHILLY K 709.1 VASCULAR DISORDERS OF SKIN 11/02/2008 KENNY DO PHILLY K 709.1 VASCULAR DISORDERS OF SKIN 11/02/2008 CHIO COBB DDS 709.1 VASCULAR DISORDERS OF SKIN 11/02/2008 CHIO COBB DDS 709.1 VASCULAR DISORDERS OF SKIN 11/02/2008 KELLEY COBB DDS 709.1 VASCULAR DISORDERS OF SKIN 11/02/2008 LIVE DIAZ APRN 709.1 VASCULAR DISORDERS OF SKIN 04/14/2009 V70.5 PREEMPLOYMENT/ PRESCHOOL EXAM 04/14/2009 V70.5 PREEMPLOYMENT/ PRESCHOOL EXAM 04/14/2009 NAHEED MALHOTRA, ADÁN V70.5 PREEMPLOYMENT/PRESCHOOL EXAM 04/14/2009 V70.5 PREEMPLOYMENT/ PRESCHOOL EXAM 04/14/2009 V70.5 PREEMPLOYMENT/ PRESCHOOL EXAM 04/14/2009 V70.5 PREEMPLOYMENT/ PRESCHOOL EXAM 04/14/2009 V70.5 PREEMPLOYMENT/ PRESCHOOL EXAM 04/14/2009 V70.5 PREEMPLOYMENT/ PRESCHOOL EXAM 04/14/2009 V70.5 PREEMPLOYMENT/ PRESCHOOL EXAM 04/14/2009 LIVE DIAZ APRN V70.5 PREEMPLOYMENT/PRESCHOOL EXAM 04/14/2009 LIVE DIAZ APRN V70.5 PREEMPLOYMENT/PRESCHOOL EXAM 04/14/2009 MARIAH MALHOTRA, MILO Ponce V70.5 PREEMPLOYMENT/PRESCHOOL EXAM 04/14/2009 LIVE DIAZ APRN T V70.5 PREEMPLOYMENT/PRESCHOOL EXAM 04/14/2009 LIVE DIAZ APRN T V70.5 PREEMPLOYMENT/PRESCHOOL EXAM 04/14/2009 LIVE DIAZ APRN T V70.5 PREEMPLOYMENT/PRESCHOOL EXAM 04/14/2009 PHILLY KENNY DO V70.5 PREEMPLOYMENT/PRESCHOOL EXAM 04/14/2009 LIVE DIAZ APRN T V70.5 PREEMPLOYMENT/PRESCHOOL EXAM 04/14/2009 LIVE DIAZ APRN T V70.5 PREEMPLOYMENT/PRESCHOOL EXAM 04/14/2009 LIVE DIAZ APRN T V70.5 PREEMPLOYMENT/PRESCHOOL EXAM 04/14/2009 LIVE DIAZ APRN T V70.5 PREEMPLOYMENT/PRESCHOOL EXAM 04/14/2009 LIVE DIAZ APRN T V70.5 PREEMPLOYMENT/PRESCHOOL EXAM 04/14/2009 LIVE DIAZ APRN T V70.5 PREEMPLOYMENT/PRESCHOOL EXAM 04/14/2009 PHILLY KENNY DO K V70.5 PREEMPLOYMENT/PRESCHOOL EXAM 04/14/2009 LIVE DIAZ APRN T V70.5 PREEMPLOYMENT/PRESCHOOL EXAM 04/14/2009 TAE ARBOLEDA APRN A V70.5 PREEMPLOYMENT/PRESCHOOL EXAM 04/14/2009 KENNY PHILLY CREWS K V70.5 PREEMPLOYMENT/PRESCHOOL EXAM 04/14/2009 KENNY DOPHILLY K V70.5 PREEMPLOYMENT/PRESCHOOL EXAM 04/14/2009 WHITE DDS, CHIO D V70.5 PREEMPLOYMENT/PRESCHOOL EXAM 04/14/2009 WHITE DDS, CHIO D V70.5 PREEMPLOYMENT/PRESCHOOL EXAM 04/14/2009 WHITE DDS, KELLEY J V70.5 PREEMPLOYMENT/PRESCHOOL EXAM 04/14/2009 LIVE DIAZ APRN T V70.5 PREEMPLOYMENT/PRESCHOOL EXAM 04/28/2009 133.0 SCABIES 04/28/2009 133.0 SCABIES 04/28/2009 ADÁN FARFAN MD 133.0 SCABIES 04/28/2009 133.0 SCABIES 04/28/2009 133.0 SCABIES 04/28/2009 133.0 SCABIES 04/28/2009 133.0 SCABIES 04/28/2009 133.0 SCABIES 04/28/2009 133.0 SCABIES 04/28/2009 LIVE DIAZ APRN T 133.0 SCABIES 04/28/2009 LIVE DIAZ APRN T 133.0 SCABIES 04/28/2009 MILO LEMUS MD 133.0 SCABIES 04/28/2009 LIVE DIAZ APRN T 133.0 SCABIES 04/28/2009 LIVE DIAZ APRN T 133.0 SCABIES 04/28/2009 LIEV DIAZ APRN T 133.0 SCABIES 04/28/2009 PHILLY KENNY DO 133.0 SCABIES 04/28/2009 JOE RODRIGUEZ LIVE T 133.0 SCABIES 04/28/2009 LIVE DIAZ APRN T 133.0 SCABIES 04/28/2009 LIVE DIAZ APRN T 133.0 SCABIES 04/28/2009 JOE RODRIGUEZ LIVE T 133.0 SCABIES 04/28/2009 LIVE DIAZ APRN T 133.0 SCABIES 04/28/2009 LIVE DIAZ APRN T 133.0 SCABIES 04/28/2009 KENNY DO, PHILLY K 133.0 SCABIES 04/28/2009 JOE RODRIGUEZ, LIVE T 133.0 SCABIES 04/28/2009 CAROLE ARBOLEDA APRNIDI A 133.0 SCABIES 04/28/2009 KENNY DO, PHILLY K 133.0 SCABIES 04/28/2009 KENNY DO, PHILLY K 133.0 SCABIES 04/28/2009 WHITE DDS, CHIO D 133.0 SCABIES 04/28/2009 WHITE DDS, CHIO D 133.0 SCABIES 04/28/2009 WHITE DDS, KELLEY J 133.0 SCABIES 04/28/2009 JOE RODRIGUEZ, LIVE T 133.0 SCABIES 07/22/2009 786.2 cough 07/22/2009 786.2 cough 07/22/2009 NAHEED MALHOTRA, ADÁN 786.2 cough 07/22/2009 786.2 cough 07/22/2009 786.2 COUGH 07/22/2009 786.2 COUGH 07/22/2009 786.2 COUGH 07/22/2009 786.2 COUGH 07/22/2009 786.2 COUGH 07/22/2009 JOE RODRIGUEZ, LIVE T 786.2 COUGH 07/22/2009 JOE RODRIGUEZ, LIVE T 786.2 COUGH 07/22/2009 MARIAH MALHOTRA, MILO Ponce 786.2 COUGH 07/22/2009 JOE RODRIGUEZ, LIVE T 786.2 COUGH 07/22/2009 JOE RODRIGUEZ, LIVE T 786.2 COUGH 07/22/2009 JOE RODRIGUEZ, LIVE T 786.2 COUGH 07/22/2009 KENNY DO, PHILLY K 786.2 COUGH 07/22/2009 JOE RODRIGUEZ, LIVE T 786.2 COUGH 07/22/2009 JOE RODRIGUEZ, LIVE T 786.2 COUGH 07/22/2009 JOE BETANCURN, LIVE T 786.2 COUGH 07/22/2009 JOE BETANCURN, LIVE T 786.2 COUGH 07/22/2009 JOE RODRIGUEZ, LIVE T 786.2 COUGH 07/22/2009 JOE RODRIGUEZ, LIVE T 786.2 COUGH 07/22/2009 KENNY DO, PHILLY K 786.2 COUGH 07/22/2009 JOE RODRIGUEZ, LIVE T 786.2 COUGH 07/22/2009 ROBLES RODRIGUEZ, TAE A 786.2 COUGH 07/22/2009 KENNY DO, PHILLY K 786.2 COUGH 07/22/2009 KENNY DO, PHILLY K 786.2 COUGH 07/22/2009 WHITE DDS, CHIO D 786.2 COUGH 07/22/2009 WHITE DDS, CHIO D 786.2 COUGH 07/22/2009 WHITE DDS, KELLEY J 786.2 COUGH 07/22/2009 LIVE DIAZ APRN 786.2 cough 12/07/2009 V74.1 SCREENING EXAMINATION FOR PULMONARY TUBERCULOSIS 12/07/2009 V74.1 SCREENING EXAMINATION FOR PULMONARY TUBERCULOSIS 12/07/2009 NAHEED MALHOTRA, ADÁN V74.1 SCREENING EXAMINATION FOR PULMONARY TUBERCULOSIS 12/07/2009 V74.1 SCREENING EXAMINATION FOR PULMONARY TUBERCULOSIS 12/07/2009 V74.1 SCREENING EXAMINATION FOR PULMONARY TUBERCULOSIS 12/07/2009 V74.1 SCREENING EXAMINATION FOR PULMONARY TUBERCULOSIS 12/07/2009 V74.1 SCREENING EXAMINATION FOR PULMONARY TUBERCULOSIS 12/07/2009 V74.1 SCREENING EXAMINATION FOR PULMONARY TUBERCULOSIS 12/07/2009 V74.1 SCREENING EXAMINATION FOR PULMONARY TUBERCULOSIS 12/07/2009 ILVE DIAZ APRN V74.1 SCREENING EXAMINATION FOR PULMONARY TUBERCULOSIS 12/07/2009 LIVE DIAZ APRN V74.1 SCREENING EXAMINATION FOR PULMONARY TUBERCULOSIS 12/07/2009 MILO LEMUS MD V74.1 SCREENING EXAMINATION FOR PULMONARY TUBERCULOSIS 12/07/2009 LIVE DIAZ APRN V74.1 SCREENING EXAMINATION FOR PULMONARY TUBERCULOSIS 12/07/2009 LIVE DIAZ APRN V74.1 SCREENING EXAMINATION FOR PULMONARY TUBERCULOSIS 12/07/2009 LIVE DIAZ APRN V74.1 SCREENING EXAMINATION FOR PULMONARY TUBERCULOSIS 12/07/2009 MARK KENNY DOA K V74.1 SCREENING EXAMINATION FOR PULMONARY TUBERCULOSIS 12/07/2009 LIVE DIAZ APRN V74.1 SCREENING EXAMINATION FOR PULMONARY TUBERCULOSIS 12/07/2009 LIVE DIAZ APRN V74.1 SCREENING EXAMINATION FOR PULMONARY TUBERCULOSIS 12/07/2009 LIVE DIAZ APRN V74.1 SCREENING EXAMINATION FOR PULMONARY TUBERCULOSIS 12/07/2009 LIVE DIAZ APRN V74.1 SCREENING EXAMINATION FOR PULMONARY TUBERCULOSIS 12/07/2009 LIVE DIAZ APRN V74.1 SCREENING EXAMINATION FOR PULMONARY TUBERCULOSIS 12/07/2009 LIVE DIAZ APRN V74.1 SCREENING EXAMINATION FOR PULMONARY TUBERCULOSIS 12/07/2009 KENNY DO, PHILLY K V74.1 SCREENING EXAMINATION FOR PULMONARY TUBERCULOSIS 12/07/2009 LIVE DIAZ APRN V74.1 SCREENING EXAMINATION FOR PULMONARY TUBERCULOSIS 12/07/2009 TAE ARBOLEDA APRN V74.1 SCREENING EXAMINATION FOR PULMONARY TUBERCULOSIS 12/07/2009 KENNY DO, PHILLY K V74.1 SCREENING EXAMINATION FOR PULMONARY TUBERCULOSIS 12/07/2009 KENNY DO, PHILLY K V74.1 SCREENING EXAMINATION FOR PULMONARY TUBERCULOSIS 12/07/2009 WHITE DDS, CHIO Claudio V74.1 SCREENING EXAMINATION FOR PULMONARY TUBERCULOSIS 12/07/2009 WHITE DDS, CHIO Claudio V74.1 SCREENING EXAMINATION FOR PULMONARY TUBERCULOSIS 12/07/2009 WHITE DDS, KELLEY Watkins V74.1 SCREENING EXAMINATION FOR PULMONARY TUBERCULOSIS 12/07/2009 LIVE DIAZ APRN V74.1 SCREENING EXAMINATION FOR PULMONARY TUBERCULOSIS 12/15/2009 564.00 CONSTIPATION 12/15/2009 788.1 pain during urination (dysuria) 12/15/2009 564.00 CONSTIPATION 12/15/2009 788.1 pain during urination (dysuria) 12/15/2009 ADÁN FARFAN MD 564.00 CONSTIPATION 12/15/2009 ADÁN FARFAN MD 788.1 pain during urination (dysuria) 12/15/2009 564.00 CONSTIPATION 12/15/2009 788.1 pain during urination (dysuria) 12/15/2009 564.00 CONSTIPATION 12/15/2009 788.1 PAIN DURING URINATION (DYSURIA) 12/15/2009 564.00 CONSTIPATION 12/15/2009 788.1 PAIN DURING URINATION (DYSURIA) 12/15/2009 564.00 CONSTIPATION 12/15/2009 788.1 PAIN DURING URINATION (DYSURIA) 12/15/2009 564.00 CONSTIPATION 12/15/2009 788.1 PAIN DURING URINATION (DYSURIA) 12/15/2009 564.00 CONSTIPATION 12/15/2009 788.1 PAIN DURING URINATION (DYSURIA) 12/15/2009 LIVE DIAZ APRN 564.00 CONSTIPATION 12/15/2009 LIVE DIAZ APRN 788.1 PAIN DURING URINATION (DYSURIA) 12/15/2009 LIVE DIAZ APRN 564.00 CONSTIPATION 12/15/2009 LIVE DIAZ APRN 788.1 PAIN DURING URINATION (DYSURIA) 12/15/2009 MILO LEMUS MD 564.00 CONSTIPATION 12/15/2009 AMANDA LEMUS MDISTINA M 788.1 PAIN DURING URINATION (DYSURIA) 12/15/2009 LIVE DIAZ APRN T 564.00 CONSTIPATION 12/15/2009 LIVE DIAZ APRN T 788.1 PAIN DURING URINATION (DYSURIA) 12/15/2009 LIVE DIAZ APRN T 564.00 CONSTIPATION 12/15/2009 LIVE DIAZ APRN T 788.1 PAIN DURING URINATION (DYSURIA) 12/15/2009 LIVE DIAZ APRN T 564.00 CONSTIPATION 12/15/2009 LIVE DIAZ APRN T 788.1 PAIN DURING URINATION (DYSURIA) 12/15/2009 KENNY DO, PHILLY K 564.00 CONSTIPATION 12/15/2009 KENNY DO, PHILLY K 788.1 PAIN DURING URINATION (DYSURIA) 12/15/2009 LIVE DIAZ APRN T 564.00 CONSTIPATION 12/15/2009 LIVE DIAZ APRN 788.1 PAIN DURING URINATION (DYSURIA) 12/15/2009 LIVE DIAZ APRN T 564.00 CONSTIPATION 12/15/2009 LIVE DIAZ APRN 788.1 PAIN DURING URINATION (DYSURIA) 12/15/2009 LIVE DIAZ APRN T 564.00 CONSTIPATION 12/15/2009 LIVE DIAZ APRN 788.1 PAIN DURING URINATION (DYSURIA) 12/15/2009 LIVE DIAZ APRN T 564.00 CONSTIPATION 12/15/2009 LIVE DIAZ APRN 788.1 PAIN DURING URINATION (DYSURIA) 12/15/2009 LIVE DIAZ APRN T 564.00 CONSTIPATION 12/15/2009 LIVE DIAZ APRN 788.1 PAIN DURING URINATION (DYSURIA) 12/15/2009 LIVE DIAZ APRN T 564.00 CONSTIPATION 12/15/2009 LIVE DIAZ APRN T 788.1 PAIN DURING URINATION (DYSURIA) 12/15/2009 KENNY DO, PHILLY K 564.00 CONSTIPATION 12/15/2009 KENNY DO, PHILLY K 788.1 PAIN DURING URINATION (DYSURIA) 12/15/2009 LIVE DIAZ APRN T 564.00 CONSTIPATION 12/15/2009 LIVE DIAZ APRN 788.1 PAIN DURING URINATION (DYSURIA) 12/15/2009 ROBLES WIRE FRAME DIPPER, TAE A 564.00 CONSTIPATION 12/15/2009 ROBLES APRN, TAE A 788.1 PAIN DURING URINATION (DYSURIA) 12/15/2009 KENNY DO, PHILLY K 564.00 CONSTIPATION 12/15/2009 KENNY DO, PHILLY K 788.1 PAIN DURING URINATION (DYSURIA) 12/15/2009 KENNY DO, PHILLY K 564.00 CONSTIPATION 12/15/2009 KENNY DO, PHILLY K 788.1 PAIN DURING URINATION (DYSURIA) 12/15/2009 WHITE DDS, CHIO D 564.00 CONSTIPATION 12/15/2009 WHITE DDS, CHIO D 788.1 PAIN DURING URINATION (DYSURIA) 12/15/2009 WHITE DDS, CHIO D 564.00 CONSTIPATION 12/15/2009 WHITE DDS, CHIO D 788.1 PAIN DURING URINATION (DYSURIA) 12/15/2009 WHITE DDS, KELLEY J 564.00 CONSTIPATION 12/15/2009 WHITE DDS, KELLEY J 788.1 PAIN DURING URINATION (DYSURIA) 12/15/2009 LIVE DIAZ APRN 564.00 CONSTIPATION 12/15/2009 LIVE DIAZ APRN 788.1 pain during urination (dysuria) 12/23/2009 461.9 SINUSITIS ACUTE 12/23/2009 461.9 SINUSITIS ACUTE 12/23/2009 NAHEED MALHOTRA, ADÁN 461.9 SINUSITIS ACUTE 12/23/2009 461.9 SINUSITIS ACUTE 12/23/2009 461.9 SINUSITIS ACUTE 12/23/2009 461.9 SINUSITIS ACUTE 12/23/2009 461.9 SINUSITIS ACUTE 12/23/2009 461.9 SINUSITIS ACUTE 12/23/2009 461.9 SINUSITIS ACUTE 12/23/2009 LIVE DIAZ APRN 461.9 SINUSITIS ACUTE 12/23/2009 LIVE DIAZ APRN 461.9 SINUSITIS ACUTE 12/23/2009 MARIAH MALHOTRA, MILO Ponce 461.9 SINUSITIS ACUTE 12/23/2009 LIVE DIAZ APRN 461.9 SINUSITIS ACUTE 12/23/2009 LIVE DIAZ APRN 461.9 SINUSITIS ACUTE 12/23/2009 LIVE DIAZ APRN 461.9 SINUSITIS ACUTE 12/23/2009 KENNY MARK CREWSA K 461.9 SINUSITIS ACUTE 12/23/2009 LIVE DIAZ APRN T 461.9 SINUSITIS ACUTE 12/23/2009 LIVE DIAZ APRN T 461.9 SINUSITIS ACUTE 12/23/2009 LIVE DIAZ APRN T 461.9 SINUSITIS ACUTE 12/23/2009 LIVE DIAZ APRN T 461.9 SINUSITIS ACUTE 12/23/2009 LIVE DIAZ APRN T 461.9 SINUSITIS ACUTE 12/23/2009 LIVE DIAZ APRN T 461.9 SINUSITIS ACUTE 12/23/2009 KENNY DO, PHILLY K 461.9 SINUSITIS ACUTE 12/23/2009 LIVE DIAZ APRN T 461.9 SINUSITIS ACUTE 12/23/2009 TAE ARBOLEDA APRN 461.9 SINUSITIS ACUTE 12/23/2009 KENNY DOMARKA K 461.9 SINUSITIS ACUTE 12/23/2009 KENNY DO, PHILLY K 461.9 SINUSITIS ACUTE 12/23/2009 WHITE DDS, CHIO D 461.9 SINUSITIS ACUTE 12/23/2009 WHITE DDS, CHIO D 461.9 SINUSITIS ACUTE 12/23/2009 WHITE DDS, KELLEY Watkins 461.9 SINUSITIS ACUTE 12/23/2009 LIVE DIAZ APRN T 461.9 SINUSITIS ACUTE 06/01/2010 466.0 BRONCHITIS, ACUTE 06/01/2010 724.2 PAIN LOW BACK 06/01/2010 786.07 WHEEZING 06/01/2010 466.0 BRONCHITIS, ACUTE 06/01/2010 724.2 PAIN LOW BACK 06/01/2010 786.07 WHEEZING 06/01/2010 ADÁN FARFAN MD 466.0 BRONCHITIS, ACUTE 06/01/2010 ADÁN FARFAN MD 724.2 PAIN LOW BACK 06/01/2010 ADÁN FARFAN MD 786.07 WHEEZING 06/01/2010 466.0 BRONCHITIS, ACUTE 06/01/2010 724.2 PAIN LOW BACK 06/01/2010 786.07 WHEEZING 06/01/2010 466.0 BRONCHITIS, ACUTE 06/01/2010 724.2 PAIN LOW BACK 06/01/2010 786.07 WHEEZING 06/01/2010 466.0 BRONCHITIS, ACUTE 06/01/2010 724.2 PAIN LOW BACK 06/01/2010 786.07 WHEEZING 06/01/2010 466.0 BRONCHITIS, ACUTE 06/01/2010 724.2 PAIN LOW BACK 06/01/2010 786.07 WHEEZING 06/01/2010 466.0 BRONCHITIS, ACUTE 06/01/2010 724.2 PAIN LOW BACK 06/01/2010 786.07 WHEEZING 06/01/2010 466.0 BRONCHITIS, ACUTE 06/01/2010 724.2 PAIN LOW BACK 06/01/2010 786.07 WHEEZING 06/01/2010 LIVE DIAZ APRN T 466.0 BRONCHITIS, ACUTE 06/01/2010 LIVE DIAZ APRN T 724.2 PAIN LOW BACK 06/01/2010 LIVE DIAZ APRN T 786.07 WHEEZING 06/01/2010 LIVE DIAZ APRN T 466.0 BRONCHITIS, ACUTE 06/01/2010 LIVE DIAZ APRN T 724.2 PAIN LOW BACK 06/01/2010 LIVE DIAZ APRN T 786.07 WHEEZING 06/01/2010 MARIAH MALHOTRA, MILO M 466.0 BRONCHITIS, ACUTE 06/01/2010 MARIAH MALHOTRA, MILO M 724.2 PAIN LOW BACK 06/01/2010 MARIAH MALHOTRA, MILO M 786.07 WHEEZING 06/01/2010 LIVE DIAZ APRN 466.0 BRONCHITIS, ACUTE 06/01/2010 LIVE DIAZ APRN 724.2 PAIN LOW BACK 06/01/2010 LIVE DIAZ APRN T 786.07 WHEEZING 06/01/2010 LIVE DIAZ APRN T 466.0 BRONCHITIS, ACUTE 06/01/2010 LIVE DIAZ APRN T 724.2 PAIN LOW BACK 06/01/2010 LIVE DIAZ APRN T 786.07 WHEEZING 06/01/2010 LIVE DIAZ APRN T 466.0 BRONCHITIS, ACUTE 06/01/2010 LIVE DIAZ APRN T 724.2 PAIN LOW BACK 06/01/2010 LIVE DIAZ APRN T 786.07 WHEEZING 06/01/2010 KENNY DO, PHILLY K 466.0 BRONCHITIS, ACUTE 06/01/2010 KENNY DO, PHILLY K 724.2 PAIN LOW BACK 06/01/2010 KENNY DO, PHILLY K 786.07 WHEEZING 06/01/2010 LIVE DIAZ APRN T 466.0 BRONCHITIS, ACUTE 06/01/2010 LIVE DIAZ APRN T 724.2 PAIN LOW BACK 06/01/2010 LIVE DIAZ APRN T 786.07 WHEEZING 06/01/2010 JOE WIRE FRAME DIPPER, LIVE T 466.0 BRONCHITIS, ACUTE 06/01/2010 JOE WIRE FRAME DIPPER, LIVE T 724.2 PAIN LOW BACK 06/01/2010 JOE WIRE FRAME DIPPER, LIVE T 786.07 WHEEZING 06/01/2010 JOE WIRE FRAME DIPPER, LIVE T 466.0 BRONCHITIS, ACUTE 06/01/2010 JOE WIRE FRAME DIPPER, LIVE T 724.2 PAIN LOW BACK 06/01/2010 JOE WIRE FRAME DIPPER, LIVE T 786.07 WHEEZING 06/01/2010 JOE WIRE FRAME DIPPER, LIVE T 466.0 BRONCHITIS, ACUTE 06/01/2010 JOE WIRE FRAME DIPPER, LIVE T 724.2 PAIN LOW BACK 06/01/2010 JOE WIRE FRAME DIPPER, LIVE T 786.07 WHEEZING 06/01/2010 JOE WIRE FRAME DIPPER, LIVE T 466.0 BRONCHITIS, ACUTE 06/01/2010 JOE WIRE FRAME DIPPER, LIVE T 724.2 PAIN LOW BACK 06/01/2010 JOE WIRE FRAME DIPPER, LIVE T 786.07 WHEEZING 06/01/2010 JOE WIRE FRAME DIPPER, LIVE T 466.0 BRONCHITIS, ACUTE 06/01/2010 JOE WIRE FRAME DIPPER, LIVE T 724.2 PAIN LOW BACK 06/01/2010 JOE WIRE FRAME DIPPER, LIVE T 786.07 WHEEZING 06/01/2010 KENNY DO, PHILLY K 466.0 BRONCHITIS, ACUTE 06/01/2010 KENNY DO, PHILLY K 724.2 PAIN LOW BACK 06/01/2010 KENNY DO, PHILLY K 786.07 WHEEZING 06/01/2010 JOE WIRE FRAME DIPPER, LIVE T 466.0 BRONCHITIS, ACUTE 06/01/2010 JOE WIRE FRAME DIPPER, LIVE T 724.2 PAIN LOW BACK 06/01/2010 JOE WIRE FRAME DIPPER, LIVE T 786.07 WHEEZING 06/01/2010 ROBLES WIRE FRAME DIPPER, TAE A 466.0 BRONCHITIS, ACUTE 06/01/2010 ROBLES WIRE FRAME DIPPER, TAE A 724.2 PAIN LOW BACK 06/01/2010 ROBLES WIRE FRAME DIPPER, TAE A 786.07 WHEEZING 06/01/2010 KENNY DO, PHILLY K 466.0 BRONCHITIS, ACUTE 06/01/2010 KENNY DO, PHILLY K 724.2 PAIN LOW BACK 06/01/2010 KENNY DO, PHILLY K 786.07 WHEEZING 06/01/2010 KENNY DO, PHILLY K 466.0 BRONCHITIS, ACUTE 06/01/2010 KENNY DO, PHILLY K 724.2 PAIN LOW BACK 06/01/2010 KENNY DO, PHILLY K 786.07 WHEEZING 06/01/2010 WHITE DDS, CHIO D 466.0 BRONCHITIS, ACUTE 06/01/2010 WHITE DDS, CHIO D 724.2 PAIN LOW BACK 06/01/2010 WHITE DDS, CHIO D 786.07 WHEEZING 06/01/2010 WHITE DDS, CHIO D 466.0 BRONCHITIS, ACUTE 06/01/2010 WHITE DDS, CHIO D 724.2 PAIN LOW BACK 06/01/2010 WHITE DDS, CHIO D 786.07 WHEEZING 06/01/2010 WHITE DDS, KELLEY J 466.0 BRONCHITIS, ACUTE 06/01/2010 WHITE DDS, KELLEY J 724.2 PAIN LOW BACK 06/01/2010 WHITE DDS, KELLEY J 786.07 WHEEZING 06/01/2010 LIVE DIAZ APRN 466.0 BRONCHITIS, ACUTE 06/01/2010 LIVE DIAZ APRN 724.2 PAIN LOW BACK 06/01/2010 LIVE DIAZ APRN 786.07 WHEEZING 07/16/2010 627.9 MENOPAUSAL AND POSTMENOPAUSAL DISORDER UNSPECIFIED 07/16/2010 627.9 MENOPAUSAL AND POSTMENOPAUSAL DISORDER UNSPECIFIED 07/16/2010 ADÁN FARFAN MD 627.9 MENOPAUSAL AND POSTMENOPAUSAL DISORDER UNSPECIFIED 07/16/2010 627.9 MENOPAUSAL AND POSTMENOPAUSAL DISORDER UNSPECIFIED 07/16/2010 627.9 MENOPAUSAL AND POSTMENOPAUSAL DISORDER UNSPECIFIED 07/16/2010 627.9 MENOPAUSAL AND POSTMENOPAUSAL DISORDER UNSPECIFIED 07/16/2010 627.9 MENOPAUSAL AND POSTMENOPAUSAL DISORDER UNSPECIFIED 07/16/2010 627.9 MENOPAUSAL AND POSTMENOPAUSAL DISORDER UNSPECIFIED 07/16/2010 627.9 MENOPAUSAL AND POSTMENOPAUSAL DISORDER UNSPECIFIED 07/16/2010 LIVE DIAZ APRN 627.9 MENOPAUSAL AND POSTMENOPAUSAL DISORDER UNSPECIFIED 07/16/2010 LIVE DIAZ APRN 627.9 MENOPAUSAL AND POSTMENOPAUSAL DISORDER UNSPECIFIED 07/16/2010 MILO LEMUS MD 627.9 MENOPAUSAL AND POSTMENOPAUSAL DISORDER UNSPECIFIED 07/16/2010 LIVE DIAZ APRN 627.9 MENOPAUSAL AND POSTMENOPAUSAL DISORDER UNSPECIFIED 07/16/2010 LIVE DIAZ APRN 627.9 MENOPAUSAL AND POSTMENOPAUSAL DISORDER UNSPECIFIED 07/16/2010 LIVE DIAZ APRN 627.9 MENOPAUSAL AND POSTMENOPAUSAL DISORDER UNSPECIFIED 07/16/2010 PHILLY KENNY DO 627.9 MENOPAUSAL AND POSTMENOPAUSAL DISORDER UNSPECIFIED 07/16/2010 LIVE DIAZ APRN T 627.9 MENOPAUSAL AND POSTMENOPAUSAL DISORDER UNSPECIFIED 07/16/2010 LIVE DIAZ APRN T 627.9 MENOPAUSAL AND POSTMENOPAUSAL DISORDER UNSPECIFIED 07/16/2010 LIVE DIAZ APRN T 627.9 MENOPAUSAL AND POSTMENOPAUSAL DISORDER UNSPECIFIED 07/16/2010 LIVE DIAZ APRN T 627.9 MENOPAUSAL AND POSTMENOPAUSAL DISORDER UNSPECIFIED 07/16/2010 LIVE DIAZ APRN 627.9 MENOPAUSAL AND POSTMENOPAUSAL DISORDER UNSPECIFIED 07/16/2010 LIVE DIAZ APRN T 627.9 MENOPAUSAL AND POSTMENOPAUSAL DISORDER UNSPECIFIED 07/16/2010 KENNY DO, PHILLY K 627.9 MENOPAUSAL AND POSTMENOPAUSAL DISORDER UNSPECIFIED 07/16/2010 LIVE DIAZ APRN T 627.9 MENOPAUSAL AND POSTMENOPAUSAL DISORDER UNSPECIFIED 07/16/2010 ROBLESROSALINDA RODRIGUEZ TAE A 627.9 MENOPAUSAL AND POSTMENOPAUSAL DISORDER UNSPECIFIED 07/16/2010 KENNY DO, PHILLY K 627.9 MENOPAUSAL AND POSTMENOPAUSAL DISORDER UNSPECIFIED 07/16/2010 KENNY DO, PHILLY K 627.9 MENOPAUSAL AND POSTMENOPAUSAL DISORDER UNSPECIFIED 07/16/2010 WHITE DDS, CHIO D 627.9 MENOPAUSAL AND POSTMENOPAUSAL DISORDER UNSPECIFIED 07/16/2010 WHITE DDS, CHIO D 627.9 MENOPAUSAL AND POSTMENOPAUSAL DISORDER UNSPECIFIED 07/16/2010 WHITE DDS, KELLEY J 627.9 MENOPAUSAL AND POSTMENOPAUSAL DISORDER UNSPECIFIED 07/16/2010 LIVE DIAZ APRN T 627.9 MENOPAUSAL AND POSTMENOPAUSAL DISORDER UNSPECIFIED 01/04/2011 V68.1 ISSUE OF REPEAT PRESCRIPTIONS 01/04/2011 V68.1 ISSUE OF REPEAT PRESCRIPTIONS 01/04/2011 ADÁN FARFAN MD V68.1 ISSUE OF REPEAT PRESCRIPTIONS 01/04/2011 V68.1 ISSUE OF REPEAT PRESCRIPTIONS 01/04/2011 V68.1 ISSUE OF REPEAT PRESCRIPTIONS 01/04/2011 V68.1 ISSUE OF REPEAT PRESCRIPTIONS 01/04/2011 V68.1 ISSUE OF REPEAT PRESCRIPTIONS 01/04/2011 V68.1 ISSUE OF REPEAT PRESCRIPTIONS 01/04/2011 V68.1 ISSUE OF REPEAT PRESCRIPTIONS 01/04/2011 LIVE DIAZ APRN V68.1 ISSUE OF REPEAT PRESCRIPTIONS 01/04/2011 LIVE DIAZ APRN V68.1 ISSUE OF REPEAT PRESCRIPTIONS 01/04/2011 MILO LEMUS MD V68.1 ISSUE OF REPEAT PRESCRIPTIONS 01/04/2011 LIVE DIAZ APRN V68.1 ISSUE OF REPEAT PRESCRIPTIONS 01/04/2011 LIVE DIAZ APRN V68.1 ISSUE OF REPEAT PRESCRIPTIONS 01/04/2011 LIVE DIAZ APRN V68.1 ISSUE OF REPEAT PRESCRIPTIONS 01/04/2011 KENNY DO PHILLY K V68.1 ISSUE OF REPEAT PRESCRIPTIONS 01/04/2011 LIVE DIAZ APRN V68.1 ISSUE OF REPEAT PRESCRIPTIONS 01/04/2011 LIVE DIAZ APRN V68.1 ISSUE OF REPEAT PRESCRIPTIONS 01/04/2011 LIVE DIAZ APRN V68.1 ISSUE OF REPEAT PRESCRIPTIONS 01/04/2011 LIVE DIAZ APRN V68.1 ISSUE OF REPEAT PRESCRIPTIONS 01/04/2011 LIVE DIAZ APRN V68.1 ISSUE OF REPEAT PRESCRIPTIONS 01/04/2011 LIVE DIAZ APRN V68.1 ISSUE OF REPEAT PRESCRIPTIONS 01/04/2011 KENNY DO, PHILLY K V68.1 ISSUE OF REPEAT PRESCRIPTIONS 01/04/2011 LIVE DIAZ APRN V68.1 ISSUE OF REPEAT PRESCRIPTIONS 01/04/2011 TAE ARBOLEDA APRN V68.1 ISSUE OF REPEAT PRESCRIPTIONS 01/04/2011 KENNY DO, PHILLY K V68.1 ISSUE OF REPEAT PRESCRIPTIONS 01/04/2011 KENNY DO, PHILLY K V68.1 ISSUE OF REPEAT PRESCRIPTIONS 01/04/2011 WHITE DDS, CHIO D V68.1 ISSUE OF REPEAT PRESCRIPTIONS 01/04/2011 WHITE DDS, CHIO D V68.1 ISSUE OF REPEAT PRESCRIPTIONS 01/04/2011 WHITE DDS, KELLEY J V68.1 ISSUE OF REPEAT PRESCRIPTIONS 01/04/2011 LIVE DIAZ APRN V68.1 ISSUE OF REPEAT PRESCRIPTIONS 05/30/2011 785.1 PALPITATIONS 05/30/2011 785.1 PALPITATIONS 05/30/2011 ADÁN FARFAN MD 785.1 PALPITATIONS 05/30/2011 785.1 PALPITATIONS 05/30/2011 785.1 PALPITATIONS 05/30/2011 785.1 PALPITATIONS 05/30/2011 785.1 PALPITATIONS 05/30/2011 785.1 PALPITATIONS 05/30/2011 785.1 PALPITATIONS 05/30/2011 LIVE DIAZ APRN 785.1 PALPITATIONS 05/30/2011 LIVE DIAZ APRN 785.1 PALPITATIONS 05/30/2011 MARIAH MALHOTRA, MILO Ponce 785.1 PALPITATIONS 05/30/2011 JOE BETANCURN, LIVE T 785.1 PALPITATIONS 05/30/2011 JOE BETANCURN, LIVE T 785.1 PALPITATIONS 05/30/2011 JOE BETANCURN, LIVE T 785.1 PALPITATIONS 05/30/2011 KENNY DO, PHILLY K 785.1 PALPITATIONS 05/30/2011 JOE BETANCURAlfonzo LIVE T 785.1 PALPITATIONS 05/30/2011 JOE BETANCURN, LIVE T 785.1 PALPITATIONS 05/30/2011 JOE BETANCURN, LIVE T 785.1 PALPITATIONS 05/30/2011 JOE BETANCURN, LIVE T 785.1 PALPITATIONS 05/30/2011 JOE BETANCURN, LIVE T 785.1 PALPITATIONS 05/30/2011 JOE BETANCURN, LIVE T 785.1 PALPITATIONS 05/30/2011 KENNY DO, PHILLY K 785.1 PALPITATIONS 05/30/2011 JOE WIRE FRAME DIPPER, LIVE T 785.1 PALPITATIONS 05/30/2011 ROBLES RODRIGUEZ TAE A 785.1 PALPITATIONS 05/30/2011 KENNY DO, PHILLY K 785.1 PALPITATIONS 05/30/2011 KENNY DO, PHILLY K 785.1 PALPITATIONS 05/30/2011 WHITE DDS, CHIO D 785.1 PALPITATIONS 05/30/2011 WHITE DDS, CHIO D 785.1 PALPITATIONS 05/30/2011 WHITE DDS, KELLEY J 785.1 PALPITATIONS 05/30/2011 JOE RODRIGUEZ LIVE T 785.1 PALPITATIONS 07/05/2011 424.0 MITRAL VALVE DISORDERS 07/05/2011 424.0 MITRAL VALVE DISORDERS 07/05/2011 ADÁN FARFAN MD 424.0 MITRAL VALVE DISORDERS 07/05/2011 424.0 MITRAL VALVE DISORDERS 07/05/2011 424.0 MITRAL VALVE DISORDERS 07/05/2011 424.0 MITRAL VALVE DISORDERS 07/05/2011 424.0 MITRAL VALVE DISORDERS 07/05/2011 424.0 MITRAL VALVE DISORDERS 07/05/2011 424.0 MITRAL VALVE DISORDERS 07/05/2011 LIVE DIAZ APRN T 424.0 MITRAL VALVE DISORDERS 07/05/2011 LIVE DIAZ APRN T 424.0 MITRAL VALVE DISORDERS 07/05/2011 MARIAH MALHOTRA, MILO Ponce 424.0 MITRAL VALVE DISORDERS 07/05/2011 LIVE DIAZ APRN T 424.0 MITRAL VALVE DISORDERS 07/05/2011 LIVE DIAZ APRN T 424.0 MITRAL VALVE DISORDERS 07/05/2011 LIVE DIAZ APRN T 424.0 MITRAL VALVE DISORDERS 07/05/2011 KENNY DO, PHILLY K 424.0 MITRAL VALVE DISORDERS 07/05/2011 LIVE DIAZ APRN T 424.0 MITRAL VALVE DISORDERS 07/05/2011 LIVE DIAZ APRN T 424.0 MITRAL VALVE DISORDERS 07/05/2011 LIVE DIAZ APRN T 424.0 MITRAL VALVE DISORDERS 07/05/2011 LIVE DIAZ APRN T 424.0 MITRAL VALVE DISORDERS 07/05/2011 LIVE DIAZ APRN T 424.0 MITRAL VALVE DISORDERS 07/05/2011 LIVE DIAZ APRN T 424.0 MITRAL VALVE DISORDERS 07/05/2011 KENNY DO, PHILLY K 424.0 MITRAL VALVE DISORDERS 07/05/2011 LIVE DIAZ APRN T 424.0 MITRAL VALVE DISORDERS 07/05/2011 TAE ARBOLEDA APRN A 424.0 MITRAL VALVE DISORDERS 07/05/2011 KENNY DO, PHILLY K 424.0 MITRAL VALVE DISORDERS 07/05/2011 KENNY DO, PHILLY K 424.0 MITRAL VALVE DISORDERS 07/05/2011 WHITE DDS, CHIO D 424.0 MITRAL VALVE DISORDERS 07/05/2011 WHITE DDS, CHIO D 424.0 MITRAL VALVE DISORDERS 07/05/2011 WHITE DDS, KELLEY J 424.0 MITRAL VALVE DISORDERS 07/05/2011 LIVE DIAZ APRN T 424.0 MITRAL VALVE DISORDERS 08/08/2011 462 ACUTE PHARYNGITIS 08/08/2011 462 ACUTE PHARYNGITIS 08/08/2011 NAHEED MALHOTRA, ADÁN 462 ACUTE PHARYNGITIS 08/08/2011 462 ACUTE PHARYNGITIS 08/08/2011 462 ACUTE PHARYNGITIS 08/08/2011 462 ACUTE PHARYNGITIS 08/08/2011 462 ACUTE PHARYNGITIS 08/08/2011 462 ACUTE PHARYNGITIS 08/08/2011 462 ACUTE PHARYNGITIS 08/08/2011 LIVE DIAZ APRN 462 ACUTE PHARYNGITIS 08/08/2011 LIVE DIAZ APRN 462 ACUTE PHARYNGITIS 08/08/2011 MARIAH MALHOTRA, MILO M 462 ACUTE PHARYNGITIS 08/08/2011 LIVE DIAZ APRN 462 ACUTE PHARYNGITIS 08/08/2011 LIVE DIAZ APRN 462 ACUTE PHARYNGITIS 08/08/2011 LIVE DIAZ APRN 462 ACUTE PHARYNGITIS 08/08/2011 KENNY DO, PHILLY K 462 ACUTE PHARYNGITIS 08/08/2011 LIVE DIAZ APRN T 462 ACUTE PHARYNGITIS 08/08/2011 LIVE DIAZ APRN 462 ACUTE PHARYNGITIS 08/08/2011 LIVE DIAZ APRN 462 ACUTE PHARYNGITIS 08/08/2011 LIVE DIAZ APRN 462 ACUTE PHARYNGITIS 08/08/2011 LIVE DIAZ APRN 462 ACUTE PHARYNGITIS 08/08/2011 LIVE DIAZ APRN 462 ACUTE PHARYNGITIS 08/08/2011 KENNY DO, PHILLY K 462 ACUTE PHARYNGITIS 08/08/2011 LIVE DIAZ APRN 462 ACUTE PHARYNGITIS 08/08/2011 TAE ARBOLEDA APRN A 462 ACUTE PHARYNGITIS 08/08/2011 KENNY DO, PHILLY K 462 ACUTE PHARYNGITIS 08/08/2011 KENNY DO, PHILLY K 462 ACUTE PHARYNGITIS 08/08/2011 WHITE DDS, CHIO D 462 ACUTE PHARYNGITIS 08/08/2011 WHITE DDS, CHIO D 462 ACUTE PHARYNGITIS 08/08/2011 WHITE DDS, KELLEY J 462 ACUTE PHARYNGITIS 08/08/2011 LIVE DIAZ APRN 462 ACUTE PHARYNGITIS 12/13/2011 V07.4 HORMONE REPLACEMENT THERAPY (POSTMENOPAUSAL) 12/13/2011 V07.4 HORMONE REPLACEMENT THERAPY (POSTMENOPAUSAL) 12/13/2011 ADÁN FARFAN MD V07.4 HORMONE REPLACEMENT THERAPY (POSTMENOPAUSAL) 12/13/2011 V07.4 HORMONE REPLACEMENT THERAPY (POSTMENOPAUSAL) 12/13/2011 V07.4 HORMONE REPLACEMENT THERAPY (POSTMENOPAUSAL) 12/13/2011 V07.4 HORMONE REPLACEMENT THERAPY (POSTMENOPAUSAL) 12/13/2011 V07.4 HORMONE REPLACEMENT THERAPY (POSTMENOPAUSAL) 12/13/2011 V07.4 HORMONE REPLACEMENT THERAPY (POSTMENOPAUSAL) 12/13/2011 V07.4 HORMONE REPLACEMENT THERAPY (POSTMENOPAUSAL) 12/13/2011 LIVE DIAZ APRN V07.4 HORMONE REPLACEMENT THERAPY (POSTMENOPAUSAL) 12/13/2011 LIVE DIAZ APRN V07.4 HORMONE REPLACEMENT THERAPY (POSTMENOPAUSAL) 12/13/2011 MILO LEMUS MD V07.4 HORMONE REPLACEMENT THERAPY (POSTMENOPAUSAL) 12/13/2011 LIVE DIAZ APRN V07.4 HORMONE REPLACEMENT THERAPY (POSTMENOPAUSAL) 12/13/2011 LIVE DIAZ APRN V07.4 HORMONE REPLACEMENT THERAPY (POSTMENOPAUSAL) 12/13/2011 LIVE DIAZ APRN V07.4 HORMONE REPLACEMENT THERAPY (POSTMENOPAUSAL) 12/13/2011 PHILLY KENNY DO V07.4 HORMONE REPLACEMENT THERAPY (POSTMENOPAUSAL) 12/13/2011 LIVE DIAZ APRN V07.4 HORMONE REPLACEMENT THERAPY (POSTMENOPAUSAL) 12/13/2011 LIVE DIAZ APRN V07.4 HORMONE REPLACEMENT THERAPY (POSTMENOPAUSAL) 12/13/2011 LIVE DIAZ APRN V07.4 HORMONE REPLACEMENT THERAPY (POSTMENOPAUSAL) 12/13/2011 LIVE DIAZ APRN V07.4 HORMONE REPLACEMENT THERAPY (POSTMENOPAUSAL) 12/13/2011 LIVE DIAZ APRN V07.4 HORMONE REPLACEMENT THERAPY (POSTMENOPAUSAL) 12/13/2011 LIVE DIAZ APRN V07.4 HORMONE REPLACEMENT THERAPY (POSTMENOPAUSAL) 12/13/2011 PHILLY KENNY DO V07.4 HORMONE REPLACEMENT THERAPY (POSTMENOPAUSAL) 12/13/2011 LIVE DIAZ APRN V07.4 HORMONE REPLACEMENT THERAPY (POSTMENOPAUSAL) 12/13/2011 TAE ARBOLEDA APRN V07.4 HORMONE REPLACEMENT THERAPY (POSTMENOPAUSAL) 12/13/2011 PHILLY KENNY DO V07.4 HORMONE REPLACEMENT THERAPY (POSTMENOPAUSAL) 12/13/2011 PHILLY KENNY DO V07.4 HORMONE REPLACEMENT THERAPY (POSTMENOPAUSAL) 12/13/2011 CHIO COBB DDS V07.4 HORMONE REPLACEMENT THERAPY (POSTMENOPAUSAL) 12/13/2011 CHIO COBB DDS V07.4 HORMONE REPLACEMENT THERAPY (POSTMENOPAUSAL) 12/13/2011 KELLEY COBB DDS V07.4 HORMONE REPLACEMENT THERAPY (POSTMENOPAUSAL) 12/13/2011 LIVE DIAZ APRN V07.4 HORMONE REPLACEMENT THERAPY (POSTMENOPAUSAL) 02/07/2012 719.46 KNEE PAIN 02/07/2012 780.79 MALAISE AND FATIGUE 02/07/2012 783.1 WEIGHT GAIN ABNORMAL 02/07/2012 V65.3 COUNSELING- OBESITY (DIET) 02/07/2012 719.46 KNEE PAIN 02/07/2012 780.79 MALAISE AND FATIGUE 02/07/2012 783.1 WEIGHT GAIN ABNORMAL 02/07/2012 V65.3 COUNSELING- OBESITY (DIET) 02/07/2012 ADÁN FARFAN MD 719.46 KNEE PAIN 02/07/2012 ADÁN FARFAN MD 780.79 MALAISE AND FATIGUE 02/07/2012 ADÁN FARFAN MD 783.1 WEIGHT GAIN ABNORMAL 02/07/2012 ADÁN FARFAN MD V65.3 COUNSELING- OBESITY (DIET) 02/07/2012 719.46 KNEE PAIN 02/07/2012 780.79 MALAISE AND FATIGUE 02/07/2012 783.1 WEIGHT GAIN ABNORMAL 02/07/2012 V65.3 COUNSELING- OBESITY (DIET) 02/07/2012 719.46 KNEE PAIN 02/07/2012 780.79 MALAISE AND FATIGUE 02/07/2012 783.1 WEIGHT GAIN ABNORMAL 02/07/2012 V65.3 COUNSELING- OBESITY (DIET) 02/07/2012 719.46 KNEE PAIN 02/07/2012 780.79 MALAISE AND FATIGUE 02/07/2012 783.1 WEIGHT GAIN ABNORMAL 02/07/2012 V65.3 COUNSELING- OBESITY (DIET) 02/07/2012 719.46 KNEE PAIN 02/07/2012 780.79 MALAISE AND FATIGUE 02/07/2012 783.1 WEIGHT GAIN ABNORMAL 02/07/2012 V65.3 COUNSELING- OBESITY (DIET) 02/07/2012 719.46 KNEE PAIN 02/07/2012 780.79 MALAISE AND FATIGUE 02/07/2012 783.1 WEIGHT GAIN ABNORMAL 02/07/2012 V65.3 COUNSELING- OBESITY (DIET) 02/07/2012 719.46 KNEE PAIN 02/07/2012 780.79 MALAISE AND FATIGUE 02/07/2012 783.1 WEIGHT GAIN ABNORMAL 02/07/2012 V65.3 COUNSELING- OBESITY (DIET) 02/07/2012 LIVE DIAZ APRN 719.46 KNEE PAIN 02/07/2012 LIVE DIAZ APRN 780.79 MALAISE AND FATIGUE 02/07/2012 LIVE DIAZ APRN 783.1 WEIGHT GAIN ABNORMAL 02/07/2012 LIVE DIAZ APRN V65.3 COUNSELING- OBESITY (DIET) 02/07/2012 LIVE DIAZ APRN 719.46 KNEE PAIN 02/07/2012 LIVE DIAZ APRN 780.79 MALAISE AND FATIGUE 02/07/2012 LIVE DIAZ APRN T 783.1 WEIGHT GAIN ABNORMAL 02/07/2012 LIVE DIAZ APRN V65.3 COUNSELING- OBESITY (DIET) 02/07/2012 MILO LEMUS MD 719.46 KNEE PAIN 02/07/2012 MILO LEMUS MD 780.79 MALAISE AND FATIGUE 02/07/2012 MILO LEMUS MD 783.1 WEIGHT GAIN ABNORMAL 02/07/2012 MILO LEMUS MD V65.3 COUNSELING- OBESITY (DIET) 02/07/2012 LIVE DIAZ APRN 719.46 KNEE PAIN 02/07/2012 LIVE DIAZ APRN 780.79 MALAISE AND FATIGUE 02/07/2012 LIVE DIAZ APRN 783.1 WEIGHT GAIN ABNORMAL 02/07/2012 LIVE DIAZ APRN V65.3 COUNSELING- OBESITY (DIET) 02/07/2012 LIVE DIAZ APRN 719.46 KNEE PAIN 02/07/2012 LIVE DIAZ APRN 780.79 MALAISE AND FATIGUE 02/07/2012 LIVE DIAZ APRN 783.1 WEIGHT GAIN ABNORMAL 02/07/2012 LIVE DIAZ APRN V65.3 COUNSELING- OBESITY (DIET) 02/07/2012 LIVE DIAZ APRN 719.46 KNEE PAIN 02/07/2012 LIVE DIAZ APRN 780.79 MALAISE AND FATIGUE 02/07/2012 LIVE DIAZ APRN 783.1 WEIGHT GAIN ABNORMAL 02/07/2012 LIVE DIAZ APRN V65.3 COUNSELING- OBESITY (DIET) 02/07/2012 KENNY DO, PHILLY K 719.46 KNEE PAIN 02/07/2012 KENNY DO, PHILLY K 780.79 MALAISE AND FATIGUE 02/07/2012 KENNY DO, PHILLY K 783.1 WEIGHT GAIN ABNORMAL 02/07/2012 KENNY DO, PHILLY K V65.3 COUNSELING- OBESITY (DIET) 02/07/2012 LIVE DIAZ APRN 719.46 KNEE PAIN 02/07/2012 LIVE DIAZ APRN 780.79 MALAISE AND FATIGUE 02/07/2012 LIVE DIAZ APRN T 783.1 WEIGHT GAIN ABNORMAL 02/07/2012 LIVE DIAZ APRN V65.3 COUNSELING- OBESITY (DIET) 02/07/2012 LIVE DIAZ APRN T 719.46 KNEE PAIN 02/07/2012 LIVE DIAZ APRN 780.79 MALAISE AND FATIGUE 02/07/2012 LIVE DIAZ APRN 783.1 WEIGHT GAIN ABNORMAL 02/07/2012 LIVE DIAZ APRN V65.3 COUNSELING- OBESITY (DIET) 02/07/2012 LIVE DIAZ APRN 719.46 KNEE PAIN 02/07/2012 LIVE DIAZ APRN 780.79 MALAISE AND FATIGUE 02/07/2012 LIVE DIAZ APRN 783.1 WEIGHT GAIN ABNORMAL 02/07/2012 LIVE DIAZ APRN V65.3 COUNSELING- OBESITY (DIET) 02/07/2012 LIVE DIAZ APRN 719.46 KNEE PAIN 02/07/2012 LIVE DIAZ APRN 780.79 MALAISE AND FATIGUE 02/07/2012 LIVE DIAZ APRN 783.1 WEIGHT GAIN ABNORMAL 02/07/2012 LIVE DIAZ APRN V65.3 COUNSELING- OBESITY (DIET) 02/07/2012 LIVE DIAZ APRN 719.46 KNEE PAIN 02/07/2012 LIVE DIAZ APRN 780.79 MALAISE AND FATIGUE 02/07/2012 LIVE DIAZ APRN 783.1 WEIGHT GAIN ABNORMAL 02/07/2012 LIVE DIAZ APRN V65.3 COUNSELING- OBESITY (DIET) 02/07/2012 LIVE DIAZ APRN 719.46 KNEE PAIN 02/07/2012 LIVE DIAZ APRN 780.79 MALAISE AND FATIGUE 02/07/2012 LIVE DIAZ APRN T 783.1 WEIGHT GAIN ABNORMAL 02/07/2012 LIVE DIAZ APRN V65.3 COUNSELING- OBESITY (DIET) 02/07/2012 KENNY DO PHILLY K 719.46 KNEE PAIN 02/07/2012 KENNY DO, PHILLY K 780.79 MALAISE AND FATIGUE 02/07/2012 KENYN DO, PHILLY K 783.1 WEIGHT GAIN ABNORMAL 02/07/2012 KENNY DO, PHILLY K V65.3 COUNSELING- OBESITY (DIET) 02/07/2012 JOE BETANCURLIVE Mejía 719.46 KNEE PAIN 02/07/2012 JOE BETANCURLIVE Mejía 780.79 MALAISE AND FATIGUE 02/07/2012 JOE BETANCURLIVE Mejía T 783.1 WEIGHT GAIN ABNORMAL 02/07/2012 JOE RODRIGUEZLIVE V65.3 COUNSELING- OBESITY (DIET) 02/07/2012 ROBLES RODRIGUEZ TAE A 719.46 KNEE PAIN 02/07/2012 ROBLES RODRIGUEZ, TAE A 780.79 MALAISE AND FATIGUE 02/07/2012 ROBLES RODRIGUEZ, TAE A 783.1 WEIGHT GAIN ABNORMAL 02/07/2012 CAROLE ARBOLEDA APRNIDI A V65.3 COUNSELING- OBESITY (DIET) 02/07/2012 KENNY DO, PHILLY K 719.46 KNEE PAIN 02/07/2012 KENNY DO, PHILLY K 780.79 MALAISE AND FATIGUE 02/07/2012 KENNY DO, PHILLY K 783.1 WEIGHT GAIN ABNORMAL 02/07/2012 KENNY DO, PHILLY K V65.3 COUNSELING- OBESITY (DIET) 02/07/2012 KENNY DO, PHILLY K 719.46 KNEE PAIN 02/07/2012 KENNY DO, PHILLY K 780.79 MALAISE AND FATIGUE 02/07/2012 KENNY DO, PHILLY K 783.1 WEIGHT GAIN ABNORMAL 02/07/2012 KENNY DO, PHILLY K V65.3 COUNSELING- OBESITY (DIET) 02/07/2012 WHITE DDS, CHIO D 719.46 KNEE PAIN 02/07/2012 WHITE DDS, CHIO D 780.79 MALAISE AND FATIGUE 02/07/2012 WHITE DDS, CHIO D 783.1 WEIGHT GAIN ABNORMAL 02/07/2012 WHITE DDS, CHIO D V65.3 COUNSELING- OBESITY (DIET) 02/07/2012 WHITE DDS, CHIO D 719.46 KNEE PAIN 02/07/2012 WHITE DDS, CHIO D 780.79 MALAISE AND FATIGUE 02/07/2012 WHITE DDS, CHIO D 783.1 WEIGHT GAIN ABNORMAL 02/07/2012 WHITE DDS, CHIO D V65.3 COUNSELING- OBESITY (DIET) 02/07/2012 WHITE DDS, KELLEY J 719.46 KNEE PAIN 02/07/2012 WHITE DDS, KELLEY J 780.79 MALAISE AND FATIGUE 02/07/2012 WHITE DDS, KELLEY J 783.1 WEIGHT GAIN ABNORMAL 02/07/2012 WHITE DDS, KELLEY J V65.3 COUNSELING- OBESITY (DIET) 02/07/2012 LIVE DIAZ APRN 719.46 KNEE PAIN 02/07/2012 LIVE DIAZ APRN 780.79 MALAISE AND FATIGUE 02/07/2012 LIVE DIAZ APRN 783.1 WEIGHT GAIN ABNORMAL 02/07/2012 LIVE DIAZ APRN V65.3 COUNSELING- OBESITY (DIET) 06/28/2012 272.4 HYPERLIPIDEMIA 06/28/2012 729.5 LEG PAIN 06/28/2012 272.4 HYPERLIPIDEMIA 06/28/2012 729.5 LEG PAIN 06/28/2012 ADÁN FARFAN MD 272.4 HYPERLIPIDEMIA 06/28/2012 ADÁN FARFAN MD 729.5 LEG PAIN 06/28/2012 272.4 HYPERLIPIDEMIA 06/28/2012 729.5 LEG PAIN 06/28/2012 272.4 HYPERLIPIDEMIA 06/28/2012 729.5 LEG PAIN 06/28/2012 272.4 HYPERLIPIDEMIA 06/28/2012 729.5 LEG PAIN 06/28/2012 272.4 HYPERLIPIDEMIA 06/28/2012 729.5 LEG PAIN 06/28/2012 272.4 HYPERLIPIDEMIA 06/28/2012 729.5 LEG PAIN 06/28/2012 272.4 HYPERLIPIDEMIA 06/28/2012 729.5 LEG PAIN 06/28/2012 LIVE DIAZ APRN 272.4 HYPERLIPIDEMIA 06/28/2012 LIVE DIAZ APRN 729.5 LEG PAIN 06/28/2012 LIVE DIAZ APRN 272.4 HYPERLIPIDEMIA 06/28/2012 LIVE DIAZ APRN 729.5 LEG PAIN 06/28/2012 MILO LEMUS MD 272.4 HYPERLIPIDEMIA 06/28/2012 MILO LEMUS MD 729.5 LEG PAIN 06/28/2012 LIVE DIAZ APRN 272.4 HYPERLIPIDEMIA 06/28/2012 LIVE DIAZ APRN 729.5 LEG PAIN 06/28/2012 LIVE DIAZ APRN 272.4 HYPERLIPIDEMIA 06/28/2012 LIVE DIAZ APRN 729.5 LEG PAIN 06/28/2012 LIVE DIAZ APRN 272.4 HYPERLIPIDEMIA 06/28/2012 JOE WIRE FRAME DIPPER, LIVE T 729.5 LEG PAIN 06/28/2012 KENNY DO, PHILLY K 272.4 HYPERLIPIDEMIA 06/28/2012 KENNY DO, PHILLY K 729.5 LEG PAIN 06/28/2012 LIVE DIAZ APRN T 272.4 HYPERLIPIDEMIA 06/28/2012 JOE RODRIGUEZ, LIVE T 729.5 LEG PAIN 06/28/2012 JOE RODRIGUEZ, LIVE T 272.4 HYPERLIPIDEMIA 06/28/2012 LIVE DIAZ APRN T 729.5 LEG PAIN 06/28/2012 JOE RODRIGUEZ, LIVE T 272.4 HYPERLIPIDEMIA 06/28/2012 JOE RODRIGUEZ, LIVE T 729.5 LEG PAIN 06/28/2012 JOE RODRIGUEZ, LIVE T 272.4 HYPERLIPIDEMIA 06/28/2012 LIVE DIAZ APRN T 729.5 LEG PAIN 06/28/2012 LIVE DIAZ APRN T 272.4 HYPERLIPIDEMIA 06/28/2012 LIVE DIAZ APRN T 729.5 LEG PAIN 06/28/2012 LIVE DIAZ APRN T 272.4 HYPERLIPIDEMIA 06/28/2012 LIVE DIAZ APRN T 729.5 LEG PAIN 06/28/2012 KENNY DO, PHILLY K 272.4 HYPERLIPIDEMIA 06/28/2012 KENNY DO, PHILLY K 729.5 LEG PAIN 06/28/2012 JOE RODRIGUEZ LIVE T 272.4 HYPERLIPIDEMIA 06/28/2012 LIVE DIAZ APRN T 729.5 LEG PAIN 06/28/2012 ROBLES JENNFIER, TAE A 272.4 HYPERLIPIDEMIA 06/28/2012 ROBLES JENNIFER, TAE A 729.5 LEG PAIN 06/28/2012 KENNY DO, PHILLY K 272.4 HYPERLIPIDEMIA 06/28/2012 KENNY DO, PHILLY K 729.5 LEG PAIN 06/28/2012 KENNY DO, PHILLY K 272.4 HYPERLIPIDEMIA 06/28/2012 KENNY DO, PHILLY K 729.5 LEG PAIN 06/28/2012 WHITE DDS, CHIO D 272.4 HYPERLIPIDEMIA 06/28/2012 WHITE DDS, CHIO D 729.5 LEG PAIN 06/28/2012 WHITE DDS, CHIO D 272.4 HYPERLIPIDEMIA 06/28/2012 WHITE DDS, CHIO D 729.5 LEG PAIN 06/28/2012 WHITE DDS, KELLEY J 272.4 HYPERLIPIDEMIA 06/28/2012 WHITE DDS, KELLEY J 729.5 LEG PAIN 06/28/2012 LIVE DIAZ APRN T 272.4 HYPERLIPIDEMIA 06/28/2012 JOE RODRIGUEZ LIVE Pascual 729.5 LEG PAIN 11/29/2012 780.57 SLEEP APNEA 11/29/2012 ADÁN FARFAN MD 780.57 SLEEP APNEA 11/29/2012 780.57 SLEEP APNEA 11/29/2012 780.57 SLEEP APNEA 11/29/2012 780.57 SLEEP APNEA 11/29/2012 780.57 SLEEP APNEA 11/29/2012 780.57 SLEEP APNEA 11/29/2012 780.57 SLEEP APNEA 11/29/2012 JOE RODRIGUEZ LIVE T 780.57 SLEEP APNEA 11/29/2012 JOE RODRIGUEZ LIVE T 780.57 SLEEP APNEA 11/29/2012 MILO LEMUS MD 780.57 SLEEP APNEA 11/29/2012 LIVE DIAZ APRN T 780.57 SLEEP APNEA 11/29/2012 LIVE DIAZ APRN T 780.57 SLEEP APNEA 11/29/2012 JOE RODRIGUEZ LIVE T 780.57 SLEEP APNEA 11/29/2012 KENNY , PHILLY K 780.57 SLEEP APNEA 11/29/2012 JOE RODRIGUEZ LIVE T 780.57 SLEEP APNEA 11/29/2012 JEO RODRIGUEZ LIVE T 780.57 SLEEP APNEA 11/29/2012 JOE RODRIGUEZ LIVE T 780.57 SLEEP APNEA 11/29/2012 JOE RODRIGUEZ LIVE T 780.57 SLEEP APNEA 11/29/2012 JOE RODRIGUEZ LIVE T 780.57 SLEEP APNEA 11/29/2012 JOE RODRIGUEZ LIVE T 780.57 SLEEP APNEA 11/29/2012 KENNY DO, PHILLY K 780.57 SLEEP APNEA 11/29/2012 JOE RODRIGUEZ LIVE T 780.57 SLEEP APNEA 11/29/2012 TAE ARBOLEDA APRN 780.57 SLEEP APNEA 11/29/2012 KENNY DO, PHILLY K 780.57 SLEEP APNEA 11/29/2012 KENNY DO, PHILLY K 780.57 SLEEP APNEA 11/29/2012 CHIO COBB DDS 780.57 SLEEP APNEA 11/29/2012 CHIO COBB DDS 780.57 SLEEP APNEA 11/29/2012 KELLEY COBB DDS 780.57 SLEEP APNEA 12/16/2012 ADÁN FARFAN MD 785.6 ENLARGEMENT OF LYMPH NODES 12/16/2012 785.6 ENLARGEMENT OF LYMPH NODES 12/16/2012 785.6 ENLARGEMENT OF LYMPH NODES 12/16/2012 785.6 ENLARGEMENT OF LYMPH NODES 12/16/2012 785.6 ENLARGEMENT OF LYMPH NODES 12/16/2012 785.6 ENLARGEMENT OF LYMPH NODES 12/16/2012 785.6 ENLARGEMENT OF LYMPH NODES 12/16/2012 JOE RODRIGUEZ LIVE T 785.6 ENLARGEMENT OF LYMPH NODES 12/16/2012 JOE RODRIGUEZ, LIVE T 785.6 ENLARGEMENT OF LYMPH NODES 12/16/2012 MILO LEMUS MD 785.6 ENLARGEMENT OF LYMPH NODES 12/16/2012 JOE RODRIGUEZ LIVE T 785.6 ENLARGEMENT OF LYMPH NODES 12/16/2012 JOE RODRIGUEZ LIVE T 785.6 ENLARGEMENT OF LYMPH NODES 12/16/2012 LIVE DIAZ APRN T 785.6 ENLARGEMENT OF LYMPH NODES 12/16/2012 KENNY DO, PHILLY K 785.6 ENLARGEMENT OF LYMPH NODES 12/16/2012 LIVE DIAZ APRN T 785.6 ENLARGEMENT OF LYMPH NODES 12/16/2012 LIVE DIAZ APRN T 785.6 ENLARGEMENT OF LYMPH NODES 12/16/2012 JOE RODRIGUEZ LIVE T 785.6 ENLARGEMENT OF LYMPH NODES 12/16/2012 JOE RODRIGUEZ LIVE T 785.6 ENLARGEMENT OF LYMPH NODES 12/16/2012 JOE RODRIGUEZ LIVE T 785.6 ENLARGEMENT OF LYMPH NODES 12/16/2012 JOE RODRIGUEZ LIVE T 785.6 ENLARGEMENT OF LYMPH NODES 12/16/2012 KENNY DO, PHILLY K 785.6 ENLARGEMENT OF LYMPH NODES 12/16/2012 JOE RODRIGUEZ LIVE T 785.6 ENLARGEMENT OF LYMPH NODES 12/16/2012 TAE ARBOLEDA APRN A 785.6 ENLARGEMENT OF LYMPH NODES 12/16/2012 KENNY DO, PHILLY K 785.6 ENLARGEMENT OF LYMPH NODES 12/16/2012 KENNY DO, PHILLY K 785.6 ENLARGEMENT OF LYMPH NODES 12/16/2012 CHIO COBB DDS 785.6 ENLARGEMENT OF LYMPH NODES 12/16/2012 CHIO COBB DDS 785.6 ENLARGEMENT OF LYMPH NODES 12/16/2012 WHITE DDSKELLEY 785.6 ENLARGEMENT OF LYMPH NODES 03/02/2013 MILO LEMUS MD, Ot 272.4 HYPERLIPIDEMIA NEC/NOS 03/02/2013 MILO LEMUS MD Ot 278.00 OBESITY, NOS 03/02/2013 MILO LEMUS MD Ot 305.1 TOBACCO USE DISORDER 03/02/2013 MILO LEMUS MD Ot 401.9 HYPERTENSION NOS 03/02/2013 MILO LEMUS MD Ot 427.89 CARDIAC DYSRHYTHMIAS NEC 03/02/2013 MILO LEMUS MD Ot 490 BRONCHITIS NOS 03/02/2013 MILO LEMUS MD Ot 786.59 CHEST PAIN NEC 03/02/2013 MILO LEMUS MD Ot V17.49 FAMILY HISTORY OF OTHER CARDIOVASCULAR D 03/02/2013 MILO LEMUS MD Ot V58.69 OTH MED,LT,CURRENT USE 03/02/2013 MILO LEMUS MD Ot V85.37 BODY MASS INDEX 37.0-37.9, ADULT 03/14/2013 278.00 OBESITY 03/14/2013 278.00 OBESITY 03/14/2013 278.00 OBESITY 03/14/2013 278.00 OBESITY 03/14/2013 278.00 OBESITY 03/14/2013 LIVE DIAZ APRN T 278.00 OBESITY 03/14/2013 LIVE DIAZ APRN T 278.00 OBESITY 03/14/2013 MILO LEMUS MD 278.00 OBESITY 03/14/2013 LIVE DIAZ APRN T 278.00 OBESITY 03/14/2013 JOE RODRIGUEZ LIVE T 278.00 OBESITY 03/14/2013 JOE RODRIGUEZ LIVE T 278.00 OBESITY 03/14/2013 KENNY DO, PHILLY K 278.00 OBESITY 03/14/2013 LIVE DIAZ APRN T 278.00 OBESITY 03/14/2013 LIVE DIAZ APRN T 278.00 OBESITY 03/14/2013 JOE RODRIGUEZ LIVE T 278.00 OBESITY 03/14/2013 LIVE DIAZ APRN T 278.00 OBESITY 03/14/2013 JOE RODRIGUEZ LIVE T 278.00 OBESITY 03/14/2013 LIVE DIAZ APRN T 278.00 OBESITY 03/14/2013 KENNY DO, PHILLY K 278.00 OBESITY 03/14/2013 JOE RODRIGUEZ LIVE T 278.00 OBESITY 03/14/2013 TAE ARBOLEDA APRN 278.00 OBESITY 03/14/2013 KENNY DO, PHILLY K 278.00 OBESITY 03/14/2013 KENNY DO, PHILLY K 278.00 OBESITY 03/14/2013 WHITE DDS, CHIO D 278.00 OBESITY 03/14/2013 WHITE DDS, CHIO D 278.00 OBESITY 03/14/2013 WHITE DDS, KELLEY Watkins 278.00 OBESITY 04/09/2013 786.50 CHEST PAIN 04/09/2013 786.50 CHEST PAIN 04/09/2013 786.50 CHEST PAIN 04/09/2013 786.50 CHEST PAIN 04/09/2013 JOE RODRIGUEZ, LIVE T 786.50 CHEST PAIN 04/09/2013 JOE RODRIGUEZ, LIVE T 786.50 CHEST PAIN 04/09/2013 MARIAH MALHOTRA, MILO Ponce 786.50 CHEST PAIN 04/09/2013 JOE RODRIGUEZ, LIVE T 786.50 CHEST PAIN 04/09/2013 JOE RODRIGUEZ, LIVE T 786.50 CHEST PAIN 04/09/2013 JOE RODRIGUEZ, LIVE T 786.50 CHEST PAIN 04/09/2013 KENNY DO, PHILLY K 786.50 CHEST PAIN 04/09/2013 JOE RODRIGUEZ, LIVE T 786.50 CHEST PAIN 04/09/2013 JOE RODRIGUEZ, LIVE T 786.50 CHEST PAIN 04/09/2013 JOE RODRIGUEZ, LIVE T 786.50 CHEST PAIN 04/09/2013 JOE BETANCURN, LIVE T 786.50 CHEST PAIN 04/09/2013 JOE BETANCURN, LIVE T 786.50 CHEST PAIN 04/09/2013 JOE BETANCURN, LIVE T 786.50 CHEST PAIN 04/09/2013 KENNY DO, PHILLY K 786.50 CHEST PAIN 04/09/2013 JOE RODRIGUEZ, LIVE T 786.50 CHEST PAIN 04/09/2013 ROBLESROSALINDA RODRIGUEZ, TAE A 786.50 CHEST PAIN 04/09/2013 KENNY DO, PHILLY K 786.50 CHEST PAIN 04/09/2013 KENNY DO, PHILLY K 786.50 CHEST PAIN 04/09/2013 WHITE DDS, CHIO D 786.50 CHEST PAIN 04/09/2013 WHITE DDS, CHIO D 786.50 CHEST PAIN 04/09/2013 WHITE DDS, KELLEY Watkins 786.50 CHEST PAIN 06/27/2013 682.9 CELLULITIS AND ABSCESS OF UNSPECIFIED SITES 06/27/2013 682.9 CELLULITIS AND ABSCESS OF UNSPECIFIED SITES 06/27/2013 LIVE DIAZ APRN 682.9 CELLULITIS AND ABSCESS OF UNSPECIFIED SITES 06/27/2013 LIVE DIAZ APRN 682.9 CELLULITIS AND ABSCESS OF UNSPECIFIED SITES 06/27/2013 MARIAH MALHOTRA, MILO Ponce 682.9 CELLULITIS AND ABSCESS OF UNSPECIFIED SITES 06/27/2013 LIVE DIAZ APRN 682.9 CELLULITIS AND ABSCESS OF UNSPECIFIED SITES 06/27/2013 LIVE DIAZ APRN T 682.9 CELLULITIS AND ABSCESS OF UNSPECIFIED SITES 06/27/2013 LIVE DIAZ APRN 682.9 CELLULITIS AND ABSCESS OF UNSPECIFIED SITES 06/27/2013 PHILLY KENNY DO K 682.9 CELLULITIS AND ABSCESS OF UNSPECIFIED SITES 06/27/2013 LIVE DIAZ APRN T 682.9 CELLULITIS AND ABSCESS OF UNSPECIFIED SITES 06/27/2013 LIVE DIAZ APRN 682.9 CELLULITIS AND ABSCESS OF UNSPECIFIED SITES 06/27/2013 LIVE DIAZ APRN 682.9 CELLULITIS AND ABSCESS OF UNSPECIFIED SITES 06/27/2013 LIVE DIAZ APRN 682.9 CELLULITIS AND ABSCESS OF UNSPECIFIED SITES 06/27/2013 LIVE DIAZ APRN 682.9 CELLULITIS AND ABSCESS OF UNSPECIFIED SITES 06/27/2013 LIVE DIAZ APRN T 682.9 CELLULITIS AND ABSCESS OF UNSPECIFIED SITES 06/27/2013 MARK KENNY DOA K 682.9 CELLULITIS AND ABSCESS OF UNSPECIFIED SITES 06/27/2013 LIVE DIAZ APRN T 682.9 CELLULITIS AND ABSCESS OF UNSPECIFIED SITES 06/27/2013 TAE ARBOLEDA APRN 682.9 CELLULITIS AND ABSCESS OF UNSPECIFIED SITES 06/27/2013 KENNY DO PHILLY K 682.9 CELLULITIS AND ABSCESS OF UNSPECIFIED SITES 06/27/2013 EFRAÍN CREWS PHILLY K 682.9 CELLULITIS AND ABSCESS OF UNSPECIFIED SITES 06/27/2013 CHIO COBB DDS 682.9 CELLULITIS AND ABSCESS OF UNSPECIFIED SITES 06/27/2013 CHIO COBB DDS 682.9 CELLULITIS AND ABSCESS OF UNSPECIFIED SITES 06/27/2013 KELLEY COBB DDS 682.9 CELLULITIS AND ABSCESS OF UNSPECIFIED SITES 07/02/2013 LM MALHOTRA, LEANDRA Castaneda Ot 041.12 METHICILLIN RESISTANT STAPHYLOCOCCUS AUR 07/02/2013 LEANDRA AMATO MD Ot 272.4 HYPERLIPIDEMIA NEC/NOS 07/02/2013 LM MD, LEANDRA S Ot 305.1 TOBACCO USE DISORDER 07/02/2013 ML MALHOTRA, LEANDRA S Ot 311 DEPRESSIVE DISORDER NEC 07/02/2013 LM MALHOTRA, LEANDRA Castaneda Ot 355.8 MONONEURITIS LEG NOS 07/02/2013 LM MALHOTRA, LEANDRA Castaneda Ot 682.0 CELLULITIS OF FACE 07/02/2013 LM MALHOTRA, LEANDRA Castaneda Ot 724.2 LUMBAGO 08/09/2013 LIVE DIAZ APRN T 844.9 SPRAIN/STRAIN KNEE/LEG 08/09/2013 MARIAH MALHOTRA, MILO Ponce 844.9 SPRAIN/STRAIN KNEE/LEG 08/09/2013 LIVE DIAZ APRN T 844.9 SPRAIN/STRAIN KNEE/LEG 08/09/2013 LIVE DIAZ APRN T 844.9 SPRAIN/STRAIN KNEE/LEG 08/09/2013 LIVE DIAZ APRN T 844.9 SPRAIN/STRAIN KNEE/LEG 08/09/2013 MARK KENNY DOA K 844.9 SPRAIN/STRAIN KNEE/LEG 08/09/2013 LIVE DIAZ APRN T 844.9 SPRAIN/STRAIN KNEE/LEG 08/09/2013 LIVE DIAZ APRN T 844.9 SPRAIN/STRAIN KNEE/LEG 08/09/2013 LIVE DIAZ APRN T 844.9 SPRAIN/STRAIN KNEE/LEG 08/09/2013 LIVE DIAZ APRN T 844.9 SPRAIN/STRAIN KNEE/LEG 08/09/2013 LIVE DIAZ APRN T 844.9 SPRAIN/STRAIN KNEE/LEG 08/09/2013 LIVE DIAZ APRN T 844.9 SPRAIN/STRAIN KNEE/LEG 08/09/2013 MARK KENNY DOA K 844.9 SPRAIN/STRAIN KNEE/LEG 08/09/2013 LIVE DIAZ APRN T 844.9 SPRAIN/STRAIN KNEE/LEG 08/09/2013 TAE ARBOLEDA APRN A 844.9 SPRAIN/STRAIN KNEE/LEG 08/09/2013 KENNY DO PHILLY K 844.9 SPRAIN/STRAIN KNEE/LEG 08/09/2013 KENNY DO PHILLY K 844.9 SPRAIN/STRAIN KNEE/LEG 08/09/2013 WHITE DDS, CHIO D 844.9 SPRAIN/STRAIN KNEE/LEG 08/09/2013 WHITE DDS, CHIO D 844.9 SPRAIN/STRAIN KNEE/LEG 08/09/2013 KELLEY COBB DDS 844.9 SPRAIN/STRAIN KNEE/LEG 10/01/2013 LM MALHOTRA, LEANDRA Castaneda Ot 682.9 CELLULITIS NOS 10/10/2013 LIVE DIAZ APRN T 847.0 SPRAIN/STRAIN NECK 10/10/2013 LIVE DIAZ APRN E987.0 FALLING FROM RESIDENTIAL PREMISES UNDETERMINED WHETHER ACCIDENTALLY OR PURPOSELY INFLICTED 10/10/2013 LIVE DIAZ APRN 847.0 SPRAIN/STRAIN NECK 10/10/2013 LIVE DIAZ APRN E987.0 FALLING FROM RESIDENTIAL PREMISES UNDETERMINED WHETHER ACCIDENTALLY OR PURPOSELY INFLICTED 10/10/2013 LIVE DIAZ APRN 847.0 SPRAIN/STRAIN NECK 10/10/2013 LIVE DIAZ APRN E987.0 FALLING FROM RESIDENTIAL PREMISES UNDETERMINED WHETHER ACCIDENTALLY OR PURPOSELY INFLICTED 10/10/2013 KENNY DO, PHILLY K 847.0 SPRAIN/STRAIN NECK 10/10/2013 KENNY DO, PHILLY K E987.0 FALLING FROM RESIDENTIAL PREMISES UNDETERMINED WHETHER ACCIDENTALLY OR PURPOSELY INFLICTED 10/10/2013 LIVE DIAZ APRN T 847.0 SPRAIN/STRAIN NECK 10/10/2013 LIVE DIAZ APRN T E987.0 FALLING FROM RESIDENTIAL PREMISES UNDETERMINED WHETHER ACCIDENTALLY OR PURPOSELY INFLICTED 10/10/2013 LIVE DIAZ APRN T 847.0 SPRAIN/STRAIN NECK 10/10/2013 LIVE DIAZ APRN T E987.0 FALLING FROM RESIDENTIAL PREMISES UNDETERMINED WHETHER ACCIDENTALLY OR PURPOSELY INFLICTED 10/10/2013 LIVE DIAZ APRN 847.0 SPRAIN/STRAIN NECK 10/10/2013 LIVE DIAZ APRN E987.0 FALLING FROM RESIDENTIAL PREMISES UNDETERMINED WHETHER ACCIDENTALLY OR PURPOSELY INFLICTED 10/10/2013 LIVE DIAZ APRN T 847.0 SPRAIN/STRAIN NECK 10/10/2013 LIVE DIAZ APRN E987.0 FALLING FROM RESIDENTIAL PREMISES UNDETERMINED WHETHER ACCIDENTALLY OR PURPOSELY INFLICTED 10/10/2013 LIVE DIAZ APRN T 847.0 SPRAIN/STRAIN NECK 10/10/2013 LIVE DIAZ APRN E987.0 FALLING FROM RESIDENTIAL PREMISES UNDETERMINED WHETHER ACCIDENTALLY OR PURPOSELY INFLICTED 10/10/2013 LIVE DIAZ APRN T 847.0 SPRAIN/STRAIN NECK 10/10/2013 LIVE DIAZ APRN E987.0 FALLING FROM RESIDENTIAL PREMISES UNDETERMINED WHETHER ACCIDENTALLY OR PURPOSELY INFLICTED 10/10/2013 KENNY DO, PHILLY K 847.0 SPRAIN/STRAIN NECK 10/10/2013 KENNY DO, PHILLY K E987.0 FALLING FROM RESIDENTIAL PREMISES UNDETERMINED WHETHER ACCIDENTALLY OR PURPOSELY INFLICTED 10/10/2013 LIVE DIAZ APRN T 847.0 SPRAIN/STRAIN NECK 10/10/2013 LIVE DIAZ APRN E987.0 FALLING FROM RESIDENTIAL PREMISES UNDETERMINED WHETHER ACCIDENTALLY OR PURPOSELY INFLICTED 10/10/2013 ROBLESCAROLE Mejía APRNIDI A 847.0 SPRAIN/STRAIN NECK 10/10/2013 ROBLES JENNIFER, TAE A E987.0 FALLING FROM RESIDENTIAL PREMISES UNDETERMINED WHETHER ACCIDENTALLY OR PURPOSELY INFLICTED 10/10/2013 KENNY DO, PHILLY K 847.0 SPRAIN/STRAIN NECK 10/10/2013 KENNY DO, PHILLY K E987.0 FALLING FROM RESIDENTIAL PREMISES UNDETERMINED WHETHER ACCIDENTALLY OR PURPOSELY INFLICTED 10/10/2013 KENNY DO, PHILLY K 847.0 SPRAIN/STRAIN NECK 10/10/2013 KENNY DO, PHILLY K E987.0 FALLING FROM RESIDENTIAL PREMISES UNDETERMINED WHETHER ACCIDENTALLY OR PURPOSELY INFLICTED 10/10/2013 WHITE DDS, CHIO D 847.0 SPRAIN/STRAIN NECK 10/10/2013 WHITE DDS, CHIO D E987.0 FALLING FROM RESIDENTIAL PREMISES UNDETERMINED WHETHER ACCIDENTALLY OR PURPOSELY INFLICTED 10/10/2013 WHITE DDS, CHIO D 847.0 SPRAIN/STRAIN NECK 10/10/2013 WHITE DDS, CHIO D E987.0 FALLING FROM RESIDENTIAL PREMISES UNDETERMINED WHETHER ACCIDENTALLY OR PURPOSELY INFLICTED 10/10/2013 WHITE DDS, KELLEY J 847.0 SPRAIN/STRAIN NECK 10/10/2013 WHITE DDS, KELLEY J E987.0 FALLING FROM RESIDENTIAL PREMISES UNDETERMINED WHETHER ACCIDENTALLY OR PURPOSELY INFLICTED 10/27/2013 LIVE DIAZ APRN 724.4 THORACIC OR LUMBOSACRAL NEURITIS OR RADICULITIS UNSPECIFIED 10/27/2013 KENNY DO, PHILLY K 724.4 THORACIC OR LUMBOSACRAL NEURITIS OR RADICULITIS UNSPECIFIED 10/27/2013 LIVE DIAZ APRN T 724.4 THORACIC OR LUMBOSACRAL NEURITIS OR RADICULITIS UNSPECIFIED 10/27/2013 LIVE DIAZ APRN T 724.4 THORACIC OR LUMBOSACRAL NEURITIS OR RADICULITIS UNSPECIFIED 10/27/2013 LIVE DIAZ APRN 724.4 THORACIC OR LUMBOSACRAL NEURITIS OR RADICULITIS UNSPECIFIED 10/27/2013 LIVE DIAZ APRN 724.4 THORACIC OR LUMBOSACRAL NEURITIS OR RADICULITIS UNSPECIFIED 10/27/2013 LIVE DIAZ APRN 724.4 THORACIC OR LUMBOSACRAL NEURITIS OR RADICULITIS UNSPECIFIED 10/27/2013 LIVE DIAZ APRN 724.4 THORACIC OR LUMBOSACRAL NEURITIS OR RADICULITIS UNSPECIFIED 10/27/2013 PHILLY KENNY DO K 724.4 THORACIC OR LUMBOSACRAL NEURITIS OR RADICULITIS UNSPECIFIED 10/27/2013 LIVE DIAZ APRN T 724.4 THORACIC OR LUMBOSACRAL NEURITIS OR RADICULITIS UNSPECIFIED 10/27/2013 TAE ARBOLEDA APRN A 724.4 THORACIC OR LUMBOSACRAL NEURITIS OR RADICULITIS UNSPECIFIED 10/27/2013 MARK KENNY DOA K 724.4 THORACIC OR LUMBOSACRAL NEURITIS OR RADICULITIS UNSPECIFIED 10/27/2013 MARK KENNY DOA K 724.4 THORACIC OR LUMBOSACRAL NEURITIS OR RADICULITIS UNSPECIFIED 10/27/2013 REZA COOPERS, CHIO Claudio 724.4 THORACIC OR LUMBOSACRAL NEURITIS OR RADICULITIS UNSPECIFIED 10/27/2013 ERZA DDS, CHIO Claudio 724.4 THORACIC OR LUMBOSACRAL NEURITIS OR RADICULITIS UNSPECIFIED 10/27/2013 REZA DDS, KELLEY Watkins 724.4 THORACIC OR LUMBOSACRAL NEURITIS OR RADICULITIS UNSPECIFIED 11/28/2013 LIVE DIAZ APRN 719.41 PAIN- SHOULDER 11/28/2013 LIVE DIAZ APRN 782.1 RASH 11/28/2013 LIVE DIAZ APRN 719.41 PAIN- SHOULDER 11/28/2013 LIVE DIAZ APRN T 782.1 RASH 11/28/2013 LIVE DIAZ APRN T 719.41 PAIN- SHOULDER 11/28/2013 LIVE DIAZ APRN T 782.1 RASH 11/28/2013 LIVE DIAZ APRN T 719.41 PAIN- SHOULDER 11/28/2013 LIVE DIAZ APRN T 782.1 RASH 11/28/2013 LIVE DIAZ APRN T 719.41 PAIN- SHOULDER 11/28/2013 LIVE DIAZ APRN T 782.1 RASH 11/28/2013 KENNY DO PHILLY K 719.41 PAIN- SHOULDER 11/28/2013 KENNY DO, PHILLY K 782.1 RASH 11/28/2013 LIVE DIAZ APRN 719.41 PAIN- SHOULDER 11/28/2013 LIVE DIAZ APRN 782.1 RASH 11/28/2013 TAE ARBOLEDA APRN A 719.41 PAIN- SHOULDER 11/28/2013 TAE ARBOLEDA APRN A 782.1 RASH 11/28/2013 KENNY DO, PHILLY K 719.41 PAIN- SHOULDER 11/28/2013 KENNY DO, PHILLY K 782.1 RASH 11/28/2013 KENNY DO, PHILLY K 719.41 PAIN- SHOULDER 11/28/2013 KENNY DO, PHILLY K 782.1 RASH 11/28/2013 WHITE DDS, CHIO D 719.41 PAIN- SHOULDER 11/28/2013 WHITE DDS, CHIO D 782.1 RASH 11/28/2013 WHITE DDS, CHIO D 719.41 PAIN- SHOULDER 11/28/2013 WHITE DDS, CHIO D 782.1 RASH 11/28/2013 WHITE DDS, KELLEY J 719.41 PAIN- SHOULDER 11/28/2013 WHITE DDS, KELLEY J 782.1 RASH 02/02/2014 LIVE DIAZ APRN 719.45 PAIN- HIP 02/02/2014 LIVE DIAZ APRN 719.45 PAIN- HIP 02/02/2014 KENNY DO, PHILLY K 719.45 PAIN- HIP 02/02/2014 LIVE DIAZ APRN 719.45 PAIN- HIP 02/02/2014 TAE ARBOLEDA APRN A 719.45 PAIN- HIP 02/02/2014 KENNY DO PHILLY K 719.45 PAIN- HIP 02/02/2014 KENNY MARK CREWSA K 719.45 PAIN- HIP 02/02/2014 WHITE DDS, CHIO Claudio 719.45 PAIN- HIP 02/02/2014 WHITE DDS, CHIO Claudio 719.45 PAIN- HIP 02/02/2014 WHITE DDS, KELLEY Watkins 719.45 PAIN- HIP 03/21/2014 LIVE DIAZ APRN T 723.1 CERVICALGIA 03/21/2014 KENNY MARK CREWSA K 723.1 CERVICALGIA 03/21/2014 LIVE DIAZ APRN T 723.1 CERVICALGIA 03/21/2014 ROBLESTAE TELLEZ APRN A 723.1 CERVICALGIA 03/21/2014 KENNY PHILLY CREWS K 723.1 CERVICALGIA 03/21/2014 KENNY MARK CREWSA K 723.1 CERVICALGIA 03/21/2014 WHITE DDS, CHIO Claudio 723.1 CERVICALGIA 03/21/2014 WHITE DDS, CHIO Claudio 723.1 CERVICALGIA 03/21/2014 WHITE DDS, KELLEY Watkins 723.1 CERVICALGIA 03/26/2014 MIRELA HUANG APRN Ot 272.0 PURE HYPERCHOLESTEROLEM 03/26/2014 MIRELA HUANG WIRE FRAME DIPPER Ot 305.1 TOBACCO USE DISORDER 03/26/2014 MIRELA HUANG WIRE FRAME DIPPER Ot 311 DEPRESSIVE DISORDER NEC 03/26/2014 MIRELA HUANG APRN Ot 401.9 HYPERTENSION NOS 03/26/2014 MIRELA HUANG APRN Ot 723.1 CERVICALGIA 03/26/2014 MIRELA HUANG APRN Ot 723.4 BRACHIAL NEURITIS NOS 03/26/2014 MIRELA HUANG WIRE FRAME DIPPER Ot 782.3 EDEMA 04/30/2014 TAE ARBOLEDA APRN A V16.0 FAMILY HX COLON CANCER 04/30/2014 TAE ARBOLEDA APRN V65.42 COUNSELING - SMOKING CESSATION 04/30/2014 TAE ARBOLEDA APRN A V76.10 BREAST CANCER SCREENING 04/30/2014 PHILLY KENNY DO K V16.0 FAMILY HX COLON CANCER 04/30/2014 PHILLY KENNY DO K V65.42 COUNSELING - SMOKING CESSATION 04/30/2014 PHILLY KENNY DO K V76.10 BREAST CANCER SCREENING 04/30/2014 MARK KENNY DOA K V16.0 FAMILY HX COLON CANCER 04/30/2014 EFRAÍN MARK CREWSA K V65.42 COUNSELING - SMOKING CESSATION 04/30/2014 KENNY MARK CREWSA K V76.10 BREAST CANCER SCREENING 04/30/2014 WHITE DDS, CHIO D V16.0 FAMILY HX COLON CANCER 04/30/2014 WHITE DDS, CHIO D V65.42 COUNSELING - SMOKING CESSATION 04/30/2014 WHITE DDS, CHIO D V76.10 BREAST CANCER SCREENING 04/30/2014 WHITE DDS, CHIO D V16.0 FAMILY HX COLON CANCER 04/30/2014 WHITE DDS, CHIO D V65.42 COUNSELING - SMOKING CESSATION 04/30/2014 WHITE DDS, CHIO D V76.10 BREAST CANCER SCREENING 04/30/2014 WHITE DDS, KELLEY J V16.0 FAMILY HX COLON CANCER 04/30/2014 WHITE DDS, KELLEY J V65.42 COUNSELING - SMOKING CESSATION 04/30/2014 WHITE DDS, KELLEY J V76.10 BREAST CANCER SCREENING 05/04/2014 KENNY PHILLY CREWS K 466.0 BRONCHITIS, ACUTE 05/04/2014 PHILLY KENNY DO K 709.9 UNSPECIFIED DISORDER OF SKIN AND SUBCUTANEOUS TISSUE 05/04/2014 KENNY MARK CREWSA K 466.0 BRONCHITIS, ACUTE 05/04/2014 KENNY MARK CREWSA K 709.9 UNSPECIFIED DISORDER OF SKIN AND SUBCUTANEOUS TISSUE 05/04/2014 WHITE DDS, CHIO D 466.0 BRONCHITIS, ACUTE 05/04/2014 WHITE DDS, CHIO D 709.9 UNSPECIFIED DISORDER OF SKIN AND SUBCUTANEOUS TISSUE 05/04/2014 WHITE DDS, CHIO D 466.0 BRONCHITIS, ACUTE 05/04/2014 WHITE DDS, CHIO D 709.9 UNSPECIFIED DISORDER OF SKIN AND SUBCUTANEOUS TISSUE 05/04/2014 WHITE DDS, KELLEY J 466.0 BRONCHITIS, ACUTE 05/04/2014 WHITE DDS, KELLEY J 709.9 UNSPECIFIED DISORDER OF SKIN AND SUBCUTANEOUS TISSUE 01/14/2018 LIVE DIAZ Ot 724.4 LUMBOSACRAL NEURITIS NOS 01/14/2018 LIVE DIAZ Ot 719.45 JOINT PAIN-PELVIS 01/14/2018 LIVE DIAZ Ot 724.4 LUMBOSACRAL NEURITIS NOS 01/14/2018 LIVE DIAZ Ot 733.90 BONE CARTILAGE DIS NOS 01/14/2018 LIVE DIAZP Ot 722.0 CERVICAL DISC DISPLACMNT 01/14/2018 LIVE DIAZP Ot 793.7 NOSP (ABN) FINDINGS ON RADIOLOGICAL OT 01/14/2018 TAE ARBOLEDA WIRE FRAME DIPPER Ot V16.0 FAMILY HX-GI MALIGNANCY 01/14/2018 CAROLE ARBOLEDAIDI Jerome WIRE FRAME DIPPER Ot V65.42 COUNSELING ON SUBSTANCE USE AND ABUSE 01/14/2018 ROBLESCAROLETAE A WIRE FRAME DIPPER Ot V72.31 ROUTINE GYNECOLOGICAL EXAMINATION 01/14/2018 ROBLESCAROLETAE A WIRE FRAME DIPPER Ot V76.12 OTH SCREEN MAMMO-MALIGN NEOPLASM OF ASHLEE 01/14/2018 ROBLES, TAEAIDEN Cano APRN Ot V76.12 OTH SCREEN MAMMO-MALIGN NEOPLASM OF ASHLEE 01/17/2018 KORTNEY DOYLE DO Ot F32.9 MAJOR DEPRESSIVE DISORDER, SINGLE EPISOD 01/17/2018 KORTNEY DOYLE DO Ot G89.4 CHRONIC PAIN SYNDROME 01/17/2018 KORTNEY DOYLE DO Ot I10 ESSENTIAL (PRIMARY) HYPERTENSION 01/17/2018 KORTNEY DOYLE DO Ot M54.16 RADICULOPATHY, LUMBAR REGION 01/17/2018 KORTNEY DOYLE DO Ot Z79.899 OTHER ADVENTURE THERAPIST (CURRENT) DRUG THERAPY 01/17/2018 LIVE DIAZ Ot 724.4 LUMBOSACRAL NEURITIS NOS 01/17/2018 LIVE DIAZP Ot 719.45 JOINT PAIN-PELVIS 01/17/2018 LIVE DIAZP Ot 724.4 LUMBOSACRAL NEURITIS NOS 01/17/2018 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 [employer] Ot 733.90 BONE CARTILAGE DIS NOS 01/17/2018 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 [employer] Ot 722.0 CERVICAL DISC DISPLACMNT 01/17/2018 LIVE DIAZP Ot 793.7 NOSP (ABN) FINDINGS ON RADIOLOGICAL OT 01/17/2018 ROBLESCAROLETAEAIDEN Cano APRN Ot V16.0 FAMILY HX-GI MALIGNANCY 01/17/2018 ROBLESCAROLETAE A WIRE FRAME DIPPER Ot V65.42 COUNSELING ON SUBSTANCE USE AND ABUSE 01/17/2018 ROBLES, TAE A WIRE FRAME DIPPER Ot V72.31 ROUTINE GYNECOLOGICAL EXAMINATION 01/17/2018 TAE ARBOLEDA JENNIFER Ot V76.12 OTH SCREEN MAMMO-MALIGN NEOPLASM OF ASHLEE 01/17/2018 ATE ARBOLEDA JENNIFER Ot V76.12 OTH SCREEN MAMMO-MALIGN NEOPLASM OF ASHLEE 01/18/2018 KORTNEY DOYLE DO, Ot F32.9 MAJOR DEPRESSIVE DISORDER, SINGLE EPISOD 01/18/2018 KORTNEY DOYLE DO Ot G89.4 CHRONIC PAIN SYNDROME 01/18/2018 KORTNEY DOYLE DO, Ot I10 ESSENTIAL (PRIMARY) HYPERTENSION 01/18/2018 KORTNEY DOYLE DO Ot M54.16 RADICULOPATHY, LUMBAR REGION 01/18/2018 KORTNEY DOYLE DO, Ot Z79.899 OTHER NURSING HOME (CURRENT) DRUG THERAPY 04/12/2018 KORTNEY DOYLE DO, Ot M54.16 RADICULOPATHY, LUMBAR REGION 05/03/2018 KORTNEY DOYLE DO, Ot M54.16 RADICULOPATHY, LUMBAR REGION 05/10/2018 KORTNEY DOYLE DO, Ot M54.16 RADICULOPATHY, LUMBAR REGION Procedures Code [place] [address] VITAMIN D 25-HYDROXY (D2,D3 , TOTAL) 11/01/2012 89748 SLEEP STUDY 11/29/2012 21106 OXIMETRY 04/14/2013 39371 THERAPUTIC INJ SQ/IM 06/27/2013 J0696 ROCEPHIN INJ 06/27/2013 86.04 OTHER SKIN SUBQ I D 06/29/2013 74631 THERAPUTIC INJ SQ/IM 10/10/2013 J1885 TORADOL INJ 10/10/2013 09475 XRAY CHEST 2 VIEW 10/10/2013 17070 XRAY CERVICAL SPINE, 2 OR 3 VIEWS 10/10/2013 J1885 TORADOL INJ 10/23/2013 87689 THERAPUTIC INJ SQ/IM 10/23/2013 86451 MRI SPINE (THORACIC) W/O CONTRAST 10/27/2013 38255 THERAPUTIC INJ SQ/IM 11/03/2013 J2930 SOLUMEDROL INJ 11/03/2013 31048 THERAPUTIC INJ SQ/IM 12/12/2013 J2930 SOLUMEDROL INJ 12/12/2013 71441 THERAPUTIC INJ SQ/IM 12/16/2013 J1040 DEPO MEDROL 80 MG INJ 12/16/2013 J3301 KENALOG INJ, PER 10 MG 12/29/2013 71736 THERAPUTIC INJ SQ/IM 12/29/2013 25593 MRI SPINE (LUMBAR) W/O CONTRAST 02/02/2014 69788 XRAY HIP LEFT UNILATERAL MIN 2 VIEWS 02/02/2014 91753 MRI SPINE (CERVICAL) W/O CONTRAST 03/21/2014 NeurologAnca Damon 03/21/2014 25954 THERAPUTIC INJ SQ/IM 03/21/2014 J1040 DEPO MEDROL 80 MG INJ 03/21/2014 09007 THERAPUTIC INJ SQ/IM 03/25/2014 J3301 KENALOG INJ, PER 10 MG 03/25/2014 86239 WART DESTRUCT 1-14 (CRYO) 05/04/2014 42344 MAMMOGRAM DX, RIGHT 05/05/2014 76899 MAMMOGRAM, SCREENING 05/05/2014 Results There is no data. Encounters ACCT No. Visit Date/Time Discharge Status Pt. Type Provider Facility Loc./Unit Complaint [id number] 08/31/2014 09:53:00 08/31/2014 23:59:59 CLS Outpatient KELLEY COBB DDS [id number] 07/06/2014 00:00:00 07/06/2014 23:59:59 CLS Outpatient CHIO COBB DDS [id number] 06/12/2014 11:17:00 06/12/2014 23:59:59 CLS Outpatient CHIO COBB DDS [id number] 05/04/2014 16:57:00 05/04/2014 23:59:59 CLS Outpatient PHILLY KENNY DO [id number] 05/04/2014 16:57:00 05/04/2014 23:59:59 CLS Outpatient PHILLY KENNY DO [id number] 04/30/2014 10:28:00 04/30/2014 23:59:59 CLS Outpatient TAE ARBOLEDA APRN [id number] 03/25/2014 16:09:00 03/25/2014 23:59:59 CLS Outpatient PHILLY KENNY DO [id number] 03/21/2014 09:35:00 03/21/2014 23:59:59 CLS Outpatient LIVE DIAZ APRN [id number] 03/21/2014 09:35:00 03/21/2014 23:59:59 CLS Outpatient LIVE DIAZ APRN [id number] 02/02/2014 08:58:00 02/02/2014 23:59:59 CLS Outpatient LIVE DIAZ APRN [id number] 12/16/2013 16:30:00 12/16/2013 23:59:59 CLS Outpatient LIVE DIAZ APRN [id number] 12/16/2013 16:30:00 12/16/2013 23:59:59 CLS Outpatient LIVE DIAZ APRN [id number] 12/12/2013 16:04:00 12/12/2013 23:59:59 CLS Outpatient LIVE DIAZ APRN [id number] 11/03/2013 15:38:00 11/03/2013 23:59:59 CLS Outpatient PHILLY KENNY DO [id number] 10/27/2013 11:41:00 10/27/2013 23:59:59 CLS Outpatient LIVE DIAZ APRN [id number] 10/23/2013 16:44:00 10/23/2013 23:59:59 CLS Outpatient LIVE DIAZ APRN [id number] 10/10/2013 10:42:00 10/10/2013 23:59:59 CLS Outpatient LIVE DIAZ APRN [id number] 10/10/2013 10:42:00 10/10/2013 23:59:59 CLS Outpatient LIVE DIAZ APRN [id number] 08/21/2013 10:23:00 08/21/2013 23:59:59 CLS Outpatient MILO LEMUS MD [id number] 08/09/2013 12:28:00 08/09/2013 23:59:59 CLS Outpatient LIVE DIAZ APRN [id number] 06/27/2013 08:22:00 06/27/2013 23:59:59 CLS Outpatient LIVE DIAZ APRN [id number] 12/16/2012 13:36:00 12/16/2012 23:59:59 CLS Outpatient ADÁN FARFAN MD [id number] 11/29/2012 08:56:00 11/29/2012 23:59:59 CLS Outpatient [id number] 11/01/2012 09:27:00 11/01/2012 23:59:59 CLS Outpatient [id number] 07/24/2012 14:01:00 07/24/2012 23:59:59 CLS Outpatient LIVE DIAZ APRN [id number] 07/14/2013 14:17:00 Document Registration [id number] 06/27/2013 08:22:00 Document Registration [id number] 04/09/2013 09:13:00 Document Registration [id number] 04/09/2013 09:13:00 Document Registration [id number] 03/14/2013 12:36:00 Document Registration [id number] 02/20/2013 13:13:00 Document Registration [id number] 04/11/2018 13:10:00 04/11/2018 23:59:59 CLS Outpatient KORTNEY DOYLE DO [facility] CARD LUMBAR RADICULOPATHY [id number] 01/17/2018 12:48:00 01/17/2018 13:32:00 DIS Outpatient KORTNEY DOYLE DO [facility] CARD LUMBAR RADICULOPATHY [id number] 05/26/2014 12:44:00 05/26/2014 23:59:59 CLS Outpatient TAE ARBOLEDA WIRE FRAME DIPPER [facility] RAD RT BREAST NODULE [id number] 05/07/2014 15:29:00 05/07/2014 23:59:59 CLS Outpatient TAE ARBOLEDA WIRE FRAME DIPPER [facility] RAD SCREENING [id number] 03/30/2014 12:59:00 03/30/2014 23:59:59 CLS Outpatient LIVE DIAZ [facility] RAD CERVICALGIA [id number] 03/26/2014 13:11:00 03/26/2014 14:40:00 DIS Emergency MIRELA HUANG WIRE FRAME DIPPER [facility] ER NECK PAIN [id number] 02/10/2014 13:03:00 02/10/2014 23:59:59 CLS Outpatient LIVE DIAZ [facility] RAD LUMBAR RADICULOPATHY [id number] 10/31/2013 14:53:00 10/31/2013 23:59:59 CLS Outpatient LIVE DIAZ [facility] RAD THORACIC RADICULOPATHY [id number] 07/14/2013 07:59:00 10/01/2013 00:01:00 DIS Outpatient LEANDRA AMATO MD [facility] SURG RCR CELLULITIS [id number] 06/29/2013 10:15:00 07/02/2013 19:15:00 DIS Inpatient LM MALHOTRA, LEANDRA Castaneda [facility] SURGICAL ABSCESS L FACIAL [id number] 03/12/2013 17:56:00 03/12/2013 23:59:59 CLS Outpatient [id number] 03/01/2013 22:30:00 03/02/2013 17:10:00 DIS Outpatient MARIAH MALHOTRA, MILO Ponce [facility] [id number] 03/01/2013 19:18:00 03/01/2013 23:59:59 CLS Outpatient [id number] 01/14/2018 19:26:00 Document Registration
[2018-07-09 12:45] VITALS: BP 146/88
[2018-07-09] MEDS ORDERED: FURO40TA4 PO (12:47)
[2018-07-09] MEDS ORDERED: HYDR-3812 PO (12:47)
[2018-07-09] MEDS ORDERED: POTA10CA43 PO (12:47)
[2018-07-09] MEDS ORDERED: SIMV40TA4 PO (12:47)
[2018-07-09] MEDS ORDERED: DICL75TA2 PO (12:47)
[2018-07-09] MEDS ORDERED: LISI1TAB6 PO (12:47)
[2018-07-09] MEDS ORDERED: LEVO750T39 PO (12:47)
[2018-07-09] MEDS ORDERED: BUDE3CAP5 PO (12:47)
[2018-07-09] MEDS ORDERED: ESTR1TAB24 PO (12:47)
[2018-07-09] MEDS ORDERED: DESV100T16 PO (12:47)
[2018-07-09] MEDS ORDERED: BREX3TAB PO (12:47)
[2018-07-09] MEDS ORDERED: GABA-488 PO (12:56)
[2018-07-09] MEDS ORDERED: ALBU2.5V4 NEB (12:56)
[2018-07-09] MEDS ORDERED: D ME PO ×2 (13:06)
[2018-07-09] MEDS ORDERED: ACET-2267 PO (13:06)
[2018-07-09] MEDS ORDERED: PHEN177L2 PO (13:06)
[2018-07-09] MEDS ORDERED: MULT-35 PO (13:06)
[2018-07-09] MEDS ORDERED: BUDE10.2 IH (13:10)
[2018-07-09] MEDS ORDERED: AZITHROMYCIN INJECTION 500 MG in NS (IVPB) 250 ML IV SCH (13:48)
--- NOTE | 2018-07-09 14:28 | History & Physical-Hospitalist ---
History of Present Illness HPI/Chief Complaint The patient is a 52-year-old white female referred to the hospitalist service from [facility]. She reports that she developed a cough and upper respiratory illness symptoms about a week ago. She went through a number of home remedies without success. She is been to [facility] the last 3 days. Frances nurse practitioner from [facility] reported that she had been given Rocephin 1 g daily for 2 days and had appeared to be improving but when she presented today she was dyspneic and extremely wheezy. She was referred for inpatient more aggressive care. She reports that she smokes about one and one half packs of cigarettes daily and began to do so at about age 30. She is not physically active so her exercise tolerance is not quantifiable Source: patient Exam Limitations: no limitations Date Seen 07/09/18 Time Seen by Provider: 14:22 Attending Physician Ilya Mauricio MD PCP Marcela Flower MD Referring Physician Date of Admission Jul 09, 2018 at 12:20 Home Medications & Allergies Home Medications Reviewed patient Home Medication Reconciliation performed by pharmacy medication reconciliations distance learning technician and/or nursing. Patients Allergies have been reviewed. Allergies Allergies Coded Allergies No Known Allergies (Verified Allergy, Unknown, 07/09/18) Past Uinljpb-Kypuah-Pljnjv Hx Past Med/Social Hx: Reviewed Nursing Past Med/Soc Hx Patient Social History Alcohol Use: Denies Use Recreational Drug Use: No Smoking Status: Current Everyday Smoker Type Used: Cigarettes Physical Abuse Screen: No Sexual Abuse: No Recent Foreign Travel: No Contact w/other who traveled: No Recent Hopitalizations: No Recent Infectious Disease Expo: No Immunizations Up To Date Tetanus Booster (TDap): Unknown Pediatric: No Date of Pneumonia Vaccine: Jun 28, 2011 Seasonal Allergies Seasonal Allergies: No Past Medical History Reproductive: No (HAS 3 GROWN CHILDREN) Sexually Transmitted Disease: No HIV/AIDS: No Female Reproductive Disorders: Denies Musculoskeletal: Back Injury Psychosocial: Sleep Difficulties, Depression History of Blood Disorders: No Adverse Reaction to Blood [place]: No (not applicable. ) Family History Arthritis Asthma Cardiovascular disease Colon cancer Completed stroke Hypertension Myocardial infarction Psychosocial problem Respiratory disorder No Pertinent Family Hx Review of Systems Constitutional: see HPI EENTM: no symptoms reported Respiratory: see HPI, cough, dyspnea on exertion, phlegm, short of breath, wheezing Cardiovascular: no symptoms reported Gastrointestinal: no symptoms reported Genitourinary: no symptoms reported Musculoskeletal: no symptoms reported Skin: no symptoms reported Psychiatric/Neurological: No Symptoms Reported Physical Exam Physical Exam Vital Signs Vital Signs - First Documented 07/09/18 12:48 O2 Delivery Room Air Capillary Refill : Height, Weight, BMI Height: 5'5.00" Weight: 231lbs. 2.0oz. [id number]; 38.5 BMI Method:Stated General Appearance: Mild Distress, Moderate Distress Eyes: Bilateral Eye Normal Inspection HEENT: Normal ENT Inspection Neck: Full Range of Motion, Normal Inspection, Non Tender, Supple, Carotid Bruit Respiratory: Expiration, Inspiration, Rhonci, Wheezing Cardiovascular: Regular Rate, Rhythm, No Edema, No Gallop, No JVD, No Murmur, Normal Peripheral Pulses Gastrointestinal: Normal Bowel Sounds, No Organomegaly, No Pulsatile Mass, Non Tender, Soft Back: Normal Inspection, No CVA Tenderness, No Vertebral Tenderness Extremity: Normal Capillary Refill, Normal Inspection, Normal Range of Motion, Non Tender, No Calf Tenderness, No Pedal Edema Neurologic/Psychiatric: Alert, Oriented x3, No Motor/Sensory Deficits, Normal Mood/Affect Skin: Normal Color, Warm/Dry Lymphatic: No Adenopathy Results Results/Procedures Labs Patient resulted labs reviewed. Assessment/Plan Admission Diagnosis Respiratory infection. 2.bronchospasm Admission Status: Inpatient Order (span 2 midnights) Reason for Inpatient Admission: Failed outpatient treatment Assessment and Plan Respiratory infection. 2.acute bronchospasm Plan: Empiric IV antibiotics. RT for pulmonary toilet and bronchodilators Clinical Quality Measures DVT/VTE Risk/Contraindication: Risk Factor Score Per Nursin RFS Level Per Nursing on Admit: 2=Moderate ILYA MAURICIO MD Jul 09, 2018 14:28
[2018-07-09] MEDS ORDERED: NON-FORMULARY MEDICATION 1 EA EA (Hydrocodone/Acetaminophen (Hydrocodone-Acetamin 5-325 mg PO PRN (14:30)
[2018-07-09] MEDS ORDERED: NON-FORMULARY MEDICATION 1 EA EA (Potassium Chloride 10 MEQ) PO PRN (14:30)
[2018-07-09] MEDS ORDERED: FUROSEMIDE 40 MG (LASIX) TAB PO PRN (14:30)
[2018-07-09] MEDS: cefTRIAXone FOR IV USE 1,000 MG in NS (IVPB) 50 ML IV SCH (14:52)
[2018-07-09] MEDS: NS IV 1000 ML 1,000 ML IV SCH (14:52)
[2018-07-09 14:54] LABS: BASOPHILS % (AUTO) 0 % (0-10); EOSINOPHILS # (AUTO) 0.1 10^3/uL (0.0-0.3); EOSINOPHILS % (AUTO) 1 % (0-10); HEMATOCRIT 40 % (35-52); LYMPHOCYTES # (AUTO) 2.2 X 10^3 (1.0-4.0); LYMPHOCYTES % (AUTO) 23 % (12-44); MEAN CORPUSCULAR HEMOGLOBIN 30 PG (25-34); MEAN CORPUSCULAR HGB CONC 33 G/DL (32-36); MEAN CORPUSCULAR VOLUME 91 FL (80-99); MEAN PLATELET VOLUME 9.9 FL (7.4-10.4); MONOCYTES # (AUTO) 0.5 X 10^3 (0.0-1.0); MONOCYTES % (AUTO) 5 % (0-12); NEUTROPHILS # (AUTO) 6.7 X 10^3 (1.8-7.8); NEUTROPHILS % (AUTO) 71 % (42-75); PLATELET COUNT 335 10^3/uL (130-400); RED BLOOD COUNT 4.34 10^6/uL (4.35-5.85); RED CELL DISTRIBUTION WIDTH 14.6 % (10.0-14.5); WHITE BLOOD COUNT 9.5 10^3/uL (4.3-11.0)
--- NOTE | 2018-07-09 14:58 | Diagnostic Imaging Report ---
Portable erect AP chest at 2:08. Indication: Cough, congestion. Findings: The heart size is within normal limits and stable when compared to 07/02/2013. The lungs are clear. There is no evidence for failure, pneumonia or for pleural effusion to indicate an acute abnormality. The mediastinum is not widened. However the AC and the aorta shadow does seem more prominent than on the prior exam. There is no evidence for an aneurysm but if further study is desired, then CT of the chest would be recommended. The osseous structures are intact. The right-sided PICC line noted on the prior exam has been removed. Impression: 1. There is no evidence for an acute cardiopulmonary abnormality. 2. The ascending aortic shadow does seem more prominent than on the prior exam. Recommendations as above. Dictated by: Dictated on workstation # [id number]
[2018-07-09 15:09] LABS: ALANINE AMINOTRANSFERASE 25 U/L (0-55); ALBUMIN 3.8 GM/DL (3.2-4.5); ALKALINE PHOSPHATASE 64 U/L (40-136); BILIRUBIN,TOTAL 0.3 MG/DL (0.1-1.0); BUN/CREATININE RATIO 13; CALCIUM 9.4 MG/DL (8.5-10.1); CARBON DIOXIDE 25 MMOL/L (21-32); CHLORIDE 103 MMOL/L (98-107); CREATININE SERUM 0.64 MG/DL (0.60-1.30); GFR ESTIMATED > 60; GLUCOSE 121 MG/DL (70-105); POTASSIUM 2.9 MMOL/L (3.6-5.0); SODIUM 141 MMOL/L (135-145); TOTAL PROTEIN 6.6 GM/DL (6.4-8.2)
[2018-07-09] MEDS ORDERED: KCL 10 MEQ TAB (MICRO K) PO PRN (15:15)
[2018-07-09] MEDS: VENlafaxine XR 75 MG (EFFEXOR XR) CAP PO SCH (15:20)
[2018-07-09] MEDS ORDERED: RT-ALBUTEROL/IPRATROPIUM 3 ML (DUONEB) VIAL INH PRN (16:00)
[2018-07-09 16:33] VITALS: BP 155/83
[2018-07-09] MEDS: ETODOLAC 300 MG (LODINE) CAP PO SCH (17:50)
[2018-07-09] MEDS: HYDROcodone/APAP 5 MG/325 MG (LORTAB) TAB PO PRN (17:50)
[2018-07-09] MEDS: RT-ALBUTEROL/IPRATROPIUM 3 ML (DUONEB) VIAL INH SCH ×2 (19:04→22:40)
[2018-07-09 20:38] VITALS: BP 127/80
[2018-07-09] MEDS: SIMvastatin 40 MG (ZOCOR) TAB PO SCH (20:45)
[2018-07-09] MEDS: GABAPENTIN 300 MG (NEURONTIN) CAP PO SCH (20:45)
[2018-07-09] MEDS ORDERED: NON-FORMULARY MEDICATION 1 EA EA (Diclofenac Sodium 75 MG) PO SCH (21:00)
[2018-07-09 22:39] LABS: BACTERIA,URINE TRACE /HPF; BILIRUBIN,URINE 3+ (NEGATIVE); CLARITY,URINE SLIGHTLY CLOUDY; COLOR,URINE AMBER; GLUCOSE, URINE (UA) NEGATIVE (NEGATIVE); KETONES,URINE 2+ (NEGATIVE); LEUKOCYTE ESTERASE ,URINE 1+ (NEGATIVE); NITRITE,URINE NEGATIVE (NEGATIVE); PH,URINE 6 (5-9); PROTEIN,URINE 2+ (NEGATIVE); UROBILINOGEN,URINE 1 MG/DL (NORMAL)
[2018-07-09 22:40] LABS: YEAST,URINE MODERATE /HPF
[2018-07-10] VITALS (7 sets, daily range): BP systolic 118–157; BP diastolic 57–83
[2018-07-10] MEDS: NS IV 1000 ML 1,000 ML IV SCH (00:53)
[2018-07-10] MEDS: RT-ALBUTEROL/IPRATROPIUM 3 ML (DUONEB) VIAL INH SCH ×5 (02:46→19:39)
[2018-07-10] MEDS: ETODOLAC 300 MG (LODINE) CAP PO SCH ×2 (06:21→16:28)
[2018-07-10] MEDS: VENlafaxine XR 75 MG (EFFEXOR XR) CAP PO SCH (06:21)
[2018-07-10] MEDS: ESTRADIOL 1 MG TAB (ESTRACE) PO SCH (08:36)
[2018-07-10] MEDS: HYDROCHLOROTHIAZIDE 12.5 MG (HCTZ) CAP PO SCH (08:36)
[2018-07-10] MEDS: GABAPENTIN 300 MG (NEURONTIN) CAP PO SCH ×2 (08:36→20:35)
[2018-07-10] MEDS: AZITHROMYCIN 250 MG TAB (ZITHROMAX) PO SCH (08:36)
[2018-07-10] MEDS: lisINopril 10 MG (PRINIVIL) TABLET PO SCH (08:36)
[2018-07-10] MEDS ORDERED: AZITHROMYCIN INJECTION 500 MG in NS (IVPB) 250 ML IV SCH (09:00)
[2018-07-10] MEDS ORDERED: methylPREDNISolone 40 MG/ML (Solu-MEDROL) VIAL IV SCH (10:00)
[2018-07-10] MEDS: methylPREDNISolone 40 MG/ML (Solu-MEDROL) VIAL IV SCH ×3 (11:14→23:46)
[2018-07-10] MEDS: BENZONATATE 100 MG (TESSALON) CAPSULE PO SCH ×3 (11:15→20:34)
--- NOTE | 2018-07-10 11:20 | Progress Note-Hospitalist ---
Subjective HPI/CC On Admission Date Seen by Provider: Jul 10, 2018 Time Seen by Provider: 10:00 The patient is a 52-year-old white female referred to the hospitalist service from [facility]. She reports that she developed a cough and upper respiratory illness symptoms about a week ago. She went through a number of home remedies without success. She is been to [facility] the last 3 days. Frances nurse practitioner from [facility] reported that she had been given Rocephin 1 g daily for 2 days and had appeared to be improving but when she presented today she was dyspneic and extremely wheezy. She was referred for inpatient more aggressive care. She reports that she smokes about one and one half packs of cigarettes daily and began to do so at about age 30. 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 [employer] No CPAP or O2 at home Will add steroids and ICS and anti-tussives Review of Systems General: Fatigue Pulmonary: Dyspnea, Cough Focused Exam Lactate Level 07/09/18 14:32: Lactic Acid Level 2.22*H 07/09/18 17:15: Lactic Acid Level 1.00 Objective Exam Vital Signs Vital Signs Date Time Temp Pulse Resp B/P (MAP) Pulse Ox O2 Delivery O2 Flow Rate FiO2 07/10/18 08:58 97.5 81 20 157/78 (104) 92 Room Air 07/10/18 08:00 0.50 07/09/18 15:00 28 Capillary Refill : General Appearance: No Apparent Distress, WD/WN, Chronically ill, Obese Respiratory: No Accessory Muscle Use, No Respiratory Distress, Crackles, Decreased Breath Sounds, Wheezing Cardiovascular: Regular Rate, Rhythm, No Edema, No Gallop, No JVD, No Murmur, Normal Peripheral Pulses Neurologic/Psychiatric: Alert, Oriented x3, No Motor/Sensory Deficits, Normal Mood/Affect Skin: Normal Color, Warm/Dry Lymphatic: No Adenopathy Results/Procedures Lab Laboratory Tests 07/09/18 14:32 Patient resulted labs reviewed. Assessment/Plan Assessment and Plan Assess & Plan/Chief Complaint AECOPD Bronchitis Smoker Plan: Home meds IV steroids IV abx Tessalon and Tussionex Monitor closely Check labs in am Diagnosis/Problems Diagnosis/Problems (1) Smoker Status: Chronic (2) Bronchitis Status: Acute (3) Wheezing Status: Acute (4) Obesity Status: Chronic Qualifiers: Obesity type: due to excess calories Obesity classification: adult class 2 (BMI 35 - 39.9) Serious obesity comorbidity presence: without serious comorbidity Body mass index: BMI 38.0-38.9 Qualified Codes: E66.09 - Other obesity due to excess calories; Z68.38 - Body mass index (bmi) 38.0-38.9, adult (5) Smoker Status: Chronic (6) Cough Status: Acute Clinical Quality Measures DVT/VTE Risk/Contraindication: Risk Factor Score Per Nursin RFS Level Per Nursing on Admit: 2=Moderate JING STEPHENSON DO Jul 10, 2018 11:20
[2018-07-10] MEDS: RT-BUDESONIDE NEBS 0.5 MG/2ML (PULMICORT) AMP INH SCH ×2 (11:46→19:39)
[2018-07-10] MEDS: cefTRIAXone FOR IV USE 1,000 MG in NS (IVPB) 50 ML IV SCH (13:26)
[2018-07-10] MEDS: CATHETER FLUSH 10 ML SYR IV PRN ×2 (13:26→17:47)
[2018-07-10] MEDS ORDERED: PATIENT MAY USE OWN MED,SINGLE MED PO SCH (16:30)
[2018-07-10] MEDS: REXULTI 3 MG PO SCH ×2 (17:45→20:35)
[2018-07-10] MEDS: HYDROcodone/APAP 5 MG/325 MG (LORTAB) TAB PO PRN (19:40)
[2018-07-10] MEDS: HYDROCODONE/CHLOR 10MG/5 ML (TUSSIONEX SUSP) 5ML UDC PO SCH (20:34)
[2018-07-10] MEDS: SIMvastatin 40 MG (ZOCOR) TAB PO SCH (20:35)
[2018-07-11 00:08] VITALS: BP 133/76
[2018-07-11 04:19] VITALS: BP 144/74
[2018-07-11] MEDS: RT-ALBUTEROL/IPRATROPIUM 3 ML (DUONEB) VIAL INH SCH ×2 (05:28→07:02)
[2018-07-11] MEDS: VENlafaxine XR 75 MG (EFFEXOR XR) CAP PO SCH (06:11)
[2018-07-11] MEDS: ETODOLAC 300 MG (LODINE) CAP PO SCH (06:11)
[2018-07-11] MEDS: methylPREDNISolone 40 MG/ML (Solu-MEDROL) VIAL IV SCH (06:11)
[2018-07-11 06:24] LABS: BASOPHILS % (AUTO) 0 % (0-10); EOSINOPHILS % (AUTO) 0 % (0-10); HEMATOCRIT 38 % (35-52); HEMOGLOBIN 12.2 G/DL (11.5-16.0); LYMPHOCYTES # (AUTO) 1.4 X 10^3 (1.0-4.0); LYMPHOCYTES % (AUTO) 12 % (12-44); MEAN CORPUSCULAR HEMOGLOBIN 30 PG (25-34); MEAN CORPUSCULAR HGB CONC 32 G/DL (32-36); MEAN CORPUSCULAR VOLUME 92 FL (80-99); MEAN PLATELET VOLUME 9.9 FL (7.4-10.4); MONOCYTES # (AUTO) 0.4 X 10^3 (0.0-1.0); MONOCYTES % (AUTO) 3 % (0-12); NEUTROPHILS # (AUTO) 9.8 X 10^3 (1.8-7.8); NEUTROPHILS % (AUTO) 84 % (42-75); PLATELET COUNT 377 10^3/uL (130-400); RED BLOOD COUNT 4.07 10^6/uL (4.35-5.85); RED CELL DISTRIBUTION WIDTH 14.8 % (10.0-14.5); WHITE BLOOD COUNT 11.6 10^3/uL (4.3-11.0)
[2018-07-11] MEDS: RT-BUDESONIDE NEBS 0.5 MG/2ML (PULMICORT) AMP INH SCH (07:02)
[2018-07-11 07:03] LABS: ALANINE AMINOTRANSFERASE 27 U/L (0-55); ALBUMIN 3.7 GM/DL (3.2-4.5); ALKALINE PHOSPHATASE 57 U/L (40-136); BILIRUBIN,TOTAL 0.2 MG/DL (0.1-1.0); BUN/CREATININE RATIO 14; CALCIUM 9.6 MG/DL (8.5-10.1); CARBON DIOXIDE 21 MMOL/L (21-32); CHLORIDE 104 MMOL/L (98-107); CREATININE SERUM 0.65 MG/DL (0.60-1.30); GFR ESTIMATED > 60; GLUCOSE 148 MG/DL (70-105); POTASSIUM 3.5 MMOL/L (3.6-5.0); SODIUM 140 MMOL/L (135-145); TOTAL PROTEIN 6.2 GM/DL (6.4-8.2)
[2018-07-11 08:00] VITALS: BP 159/81
[2018-07-11] MEDS ORDERED: AZITHROMYCIN 250 MG TAB (ZITHROMAX) PO SCH (09:00)
[2018-07-11] MEDS: AZITHROMYCIN 250 MG TAB (ZITHROMAX) PO SCH (09:14)
[2018-07-11] MEDS: GABAPENTIN 300 MG (NEURONTIN) CAP PO SCH (09:14)
[2018-07-11] MEDS: ESTRADIOL 1 MG TAB (ESTRACE) PO SCH (09:14)
[2018-07-11] MEDS: BENZONATATE 100 MG (TESSALON) CAPSULE PO SCH (09:14)
[2018-07-11] MEDS: lisINopril 10 MG (PRINIVIL) TABLET PO SCH (09:21)
[2018-07-11] MEDS: HYDROCODONE/CHLOR 10MG/5 ML (TUSSIONEX SUSP) 5ML UDC PO SCH (09:21)
[2018-07-11] MEDS: HYDROCHLOROTHIAZIDE 12.5 MG (HCTZ) CAP PO SCH (09:21)
[2018-07-11] MEDS ORDERED: CEFD300C3 PO (09:55)
[2018-07-11] MEDS ORDERED: PRED10TA22 PO (09:55)
[2018-07-11] MEDS ORDERED: BENZ100C18 PO (10:40)
[2018-07-11 10:55] VITALS: BP 159/81
--- NOTE | 2018-07-11 11:09 | Discharge Summary-Hospitalist ---
JATIN SALINAS MED STUDENT 07/11/18 1109: Diagnosis/Chief Complaint Date of Admission Jul 09, 2018 at 12:20 Date of Discharge Jul 11, 2018 at 10:55 Discharge Date: Jul 11, 2018 Admission Diagnosis Respiratory infection. 2.bronchospasm Discharge Diagnosis (1) Smoker Status: Chronic (2) Bronchitis Status: Acute (3) Wheezing Status: Acute (4) Obesity Status: Chronic (5) Smoker Status: Chronic (6) Cough Status: Acute Discharge Summary Discharge Physical Exam Allergies: Coded Allergies: No Known Allergies (Verified Allergy, Unknown, 07/09/18) Vitals & I&Os Vital Signs Date Time Temp Pulse Resp B/P (MAP) Pulse Ox O2 Delivery O2 Flow Rate FiO2 07/11/18 10:55 102 20 159/81 92 Room Air 0.50 07/11/18 08:00 96.4 07/10/18 21:23 21 General Appearance: No Apparent Distress, WD/WN, Obese Respiratory: Chest Non Tender, Lungs Clear, Normal Breath Sounds, No Accessory Muscle Use, No Respiratory Distress Cardiovascular: Regular Rate, Rhythm, No Gallop, No JVD, No Murmur Skin: Normal Color, Warm/Dry Neurologic/Psychiatric: Alert, Oriented x3, No Motor/Sensory Deficits, Normal Mood/Affect Hospital Course 52 yo female patient with 33 pack year history of smoking was admitted to hospital service from [facility] for intractable cough, dyspnea, and wheezing after failing home remedies. She was placed on azythromycin, anti tussives, albuterol, methylprednisolone, and budesonide with much success. Over the course of her hospital stay her cough greatly decreased and lung sounds were clear bilaterally prior to discharge. Patient was sent home with outpatient antibiotics and anti tussives and instructed to follow up with Dr Flower to discuss possible pulmonary function testing. Labs (last 24 hrs) Laboratory Tests 07/11/18 06:04: White Blood Count 11.6H, Red Blood Count 4.07L, Hemoglobin 12.2, Hematocrit 38, Mean Corpuscular Volume 92, Mean Corpuscular Hemoglobin 30, Mean Corpuscular Hemoglobin Concent 32, Red Cell Distribution Width 14.8H, Platelet Count 377, Mean Platelet Volume 9.9, Neutrophils (%) (Auto) 84H, Lymphocytes (%) (Auto) 12 , Monocytes (%) (Auto) 3, Eosinophils (%) (Auto) 0, Basophils (%) (Auto) 0, Neutrophils # (Auto) 9.8H, Lymphocytes # (Auto) 1.4, Monocytes # (Auto) 0.4, Eosinophils # (Auto) 0.0, Basophils # (Auto) 0.0, Sodium Level 140, Potassium Level 3.5L, Chloride Level 104, Carbon Dioxide Level 21, Anion Gap 15H, Blood Urea Nitrogen 9, Creatinine 0.65, Estimat Glomerular Filtration Rate > 60, BUN/ Creatinine Ratio 14, Glucose Level 148H, Calcium Level 9.6, Corrected Calcium 9.8, Total Bilirubin 0.2, Aspartate Amino Transf (AST/SGOT) 15, Alanine Aminotransferase (ALT/SGPT) 27, Alkaline Phosphatase 57, Total Protein 6.2L, Albumin 3.7 Microbiology 07/09/18 Blood Culture - Preliminary, Resulted No growth 07/09/18 Urine Culture - Preliminary, Resulted Yeast species Patient resulted labs reviewed. Pending Labs Laboratory Tests 07/11/18 06:04: White Blood Count 11.6, Red Blood Count 4.07, Hemoglobin 12.2, Hematocrit 38, Mean Corpuscular Volume 92, Mean Corpuscular Hemoglobin 30, Mean Corpuscular Hemoglobin Concent 32, Red Cell Distribution Width 14.8, Platelet Count 377, Mean Platelet Volume 9.9, Neutrophils (%) (Auto) 84, Lymphocytes (%) (Auto) 12, Monocytes (%) (Auto) 3, Eosinophils (%) (Auto) 0, Basophils (%) (Auto) 0, Neutrophils # (Auto) 9.8, Lymphocytes # (Auto) 1.4, Monocytes # (Auto) 0.4, Eosinophils # (Auto) 0.0, Basophils # (Auto) 0.0, Sodium Level 140, Potassium Level 3.5, Chloride Level 104, Carbon Dioxide Level 21, Anion Gap 15, Blood Urea Nitrogen 9, Creatinine 0.65, Estimat Glomerular Filtration Rate > 60, BUN/ Creatinine Ratio 14, Glucose Level 148, Calcium Level 9.6, Corrected Calcium 9.8 , Total Bilirubin 0.2, Aspartate Amino Transf (AST/SGOT) 15, Alanine Aminotransferase (ALT/SGPT) 27, Alkaline Phosphatase 57, Total Protein 6.2, Albumin 3.7 Discharge Home Medications: Active Scripts Active Tessalon Perle (Benzonatate) 100 Mg Capsule 100 Mg PO TID Prednisone 10 Mg Tab.ds.pk 10 Mg PO DAILY Take 6 tabs(60mg)daily,decrease by 1 tab(10MG)daily. Cefdinir 300 Mg Capsule 300 Mg PO BID Reported Symbicort 160-4.5 Mcg Inhaler (Budesonide/Formoterol Fumarate) 10.2 Gm Hfa.aer.ad 2 Puff IH BID Mucinex Tdai-Rxl-Eleuyblxhy Lq (Phenylephrine/Dm/Acetaminop/GG) 177 Ml Liquid 20 Ml PO Q4H PRN Vicks Dayquil Liquicaps (D-Methorphan/PE/Acetaminophen) 1 Each Capsule 2 Cap PO Q4H PRN Vicks Nyquil Liquicaps (D-Methorphan/Acetamin/Doxylamn) 1 Each Capsule 2 Cap PO Q6H PRN Tylenol Extra Strength (Acetaminophen) 500 Mg Tablet 500-1,000 Mg PO Q6H PRN Daily Multiple Vitamin (Multivitamin) 1 Each Tablet 1 Tab PO DAILY Gabapentin 300 Mg Capsule 900 Mg PO BID TAKES 3 (300MG) CAPSULES Albuterol Sulfate 2.5 Mg/3 Ml Vial.neb 2.5 Mg NEB Q4H PRN Hydrocodone-Acetamin 5-325 mg (Hydrocodone/Acetaminophen) 1 Each Tablet 1 Tab PO Q6H PRN Lisinopril-Hctz 10-12.5 mg Tab (Lisinopril/Hydrochlorothiazide) 1 Each Tablet 1 Tab PO DAILY Diclofenac Sodium 75 Mg Tablet.dr 75 Mg PO BID Estradiol Tablet (Estradiol) 1 Mg Tablet 1 Mg PO DAILY Budesonide EC (Budesonide) 3 Mg Capdr...er 9 Mg PO DAILY TAKES 3 (3MG) CAPSULES Simvastatin 40 Mg Tablet 40 Mg PO HS Rexulti (Brexpiprazole) 3 Mg Tablet 3 Mg PO HS Furosemide 40 Mg Tablet 40 Mg PO DAILY PRN Potassium Chloride 10 Meq Capsule.er 10 Meq PO DAILY PRN Desvenlafaxine Succinate ER (Desvenlafaxine Succinate) 100 Mg Tab.er.24h 100 Mg PO DAILY Levofloxacin 750 Mg Tablet 750 Mg PO DAILY 7 Days FILLED 7 DAY SUPPLY 07-07-18 Instructions to patient/family Please see electronic discharge instructions given to patient. Clinical Quality Measures DVT/VTE Risk/Contraindication: Risk Factor Score Per Nursin RFS Level Per Nursing on Admit: 2=Moderate JING STEPHENSON DO 07/11/18 1135: Diagnosis/Chief Complaint Discharge Diagnosis (1) Bronchitis Status: Acute (2) Wheezing Status: Acute (3) Cough Status: Acute (4) Smoker Status: Chronic Discharge Summary Discharge Physical Exam Allergies: Coded Allergies: No Known Allergies (Verified Allergy, Unknown, 07/09/18) General Appearance: No Apparent Distress, WD/WN Respiratory: Chest Non Tender, Lungs Clear, Normal Breath Sounds, No Accessory Muscle Use, No Respiratory Distress, Wheezing (subtle) Neurologic/Psychiatric: Alert, Oriented x3, No Motor/Sensory Deficits, Normal Mood/Affect Hospital Course Patient had an uncomplicated hospital course. Smoking cessation counseled but patient began to go outside to smoke so she was felt to be optimized on medical treatment and was DC in improved condition with close f/u with Dr Flower her PCP. Discussion & Recommendations Discharge Planning: <30 minutes discharge planning Problem Qualifiers (1) Obesity: Obesity type: due to excess calories Obesity classification: adult class 2 ( BMI 35 - 39.9) Serious obesity comorbidity presence: without serious comorbidity Body mass index: BMI 38.0-38.9 Qualified Codes: E66.09 - Other obesity due to excess calories; Z68.38 - Body mass index (bmi) 38.0-38.9, adult JATIN SALINAS MED STUDENT Jul 11, 2018 11:09 JING STEPHENSON DO Jul 11, 2018 11:35
--- NOTE | 2018-07-12 14:34 | Physician Query Clarification ---
PQ-Intro New Diagnosis Admission/Discharge Admission Date: Jul 09, 2018 at 12:20 Discharge Date: Jul 11, 2018 at 10:55 The medical record reflects the following clinical scenario: History/Risk Factors: wheezing, cough Clinical Findings: acute bronchitis Treatment: IV steroids, IV antibiotics Dr Bello, your 07/10 progress states, AECOPD under assessment and plan. Is this a valid diagnosis, as its not listed anywhere else in chart. Question: What condition best reflects the above clinical scenario? Please document below. 1. Acute exacerbation COPD with acute bronchitis 2. Acute Bronchitis, no COPD 3. Other, with explanation of the clinical findings. 4. Clinically undetermined, no explanation for the clinical findings. PHYSICIAN RESPONSE What condition reflects above: 1 In responding to this query, please exercise your independent professional judgment. The purpose of this communication is to more accurately reflect the complexity of your patients condition. The fact that a question is asked does not imply that any particular answer is desired or expected. Thank you for your timely response to this clarification. Requestors name: [ ] Phone # [ ] THIS PHYSICIAN QUERY FORM IS A PERMANENT PART OF THE MEDICAL RECORD CYNTHIA GOMEZ Jul 12, 2018 14:34 JNIG BELLO DO Jul 13, 2018 10:50
== END 2018-07-11 10:55 | disposition home or self-care (01) | DRG 202 ==
LOC: 4TH 12:20
PROVIDERS: ADMIT Internal Medicine; ATTEND Internal Medicine
DX: J20.9 Acute bronchitis, unspecified (principal); J44.1 Chronic obstructive pulmonary disease with (acute) exacerbation; J44.0 Chronic obstructive pulmonary disease with (acute) lower respiratory infection; F17.210 Nicotine dependence, cigarettes, uncomplicated; E66.09 Other obesity due to excess calories; Z68.38 Body mass index [BMI] 38.0-38.9, adult; F32.9 Major depressive disorder, single episode, unspecified
CPT/HCPCS: 36415; 71045; 80053; 81000; 83605; 85025; 87040; 87088; 94640; 94664; 94760

== ENCOUNTER 2019-01-11 09:17 | Emergency (ER) | payer MEDICARE, MEDICAID ==
[~2019-01-11] VITALS: Ht 165.1 cm; Wt 111.6 kg
[~2019-01-11 09:17] MED LIST changes: +ACET-2267 PO; +ALBU2.5V4 NEB; +BENZ100C18 PO; +BREX3TAB PO; +BUDE10.2 IH; +BUDE3CAP5 PO; +CEFD300C3 PO; +D ME PO; +DESV100T16 PO; +ESTR1TAB24 PO; +FURO40TA4 PO; +GABA-488 PO; +HYDR-3812 PO; +LEVO750T39 PO; +LISI1TAB6 PO; +MULT-35 PO; +PHEN177L2 PO; +POTA10CA43 PO; +PRED10TA22 PO
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
[2019-01-11] MEDS ORDERED: DEXAMETHASONE 10 MG/ML (DECADRON) 1 ML VIAL IM ONE (09:30)
[2019-01-11] MEDS ORDERED: KETOROLAC 60 MG/2 ML VIAL IM ONE (09:30)
[2019-01-11] MEDS ORDERED: PROMETHAZINE INJ 25 MG/ML (PHENERGAN) AMP IM ONE (09:30)
[2019-01-11] MEDS ORDERED: PRED10TA22 PO (09:39)
[2019-01-11 09:50] VITALS: BP 131/90
== END 2019-01-11 09:50 | disposition home or self-care (01) ==
LOC: EDUNIT# 09:17 → ER FS 09:18
DX: M54.16 Radiculopathy, lumbar region (principal); F32.9 Major depressive disorder, single episode, unspecified; Z79.51 Long term (current) use of inhaled steroids; Z79.52 Long term (current) use of systemic steroids; Z87.01 Personal history of pneumonia (recurrent); Z82.49 Family history of ischemic heart disease and other diseases of the circulatory system; Z80.0 Family history of malignant neoplasm of digestive organs
CPT/HCPCS: 99284

== ENCOUNTER 2019-02-06 18:47 | Emergency (ER) | payer MEDICARE, MEDICAID ==
[~2019-02-06] VITALS: Ht 165.1 cm; Wt 112.5 kg
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
--- NOTE | 2019-02-06 19:04 | NUR ---
DOCTOR FUENTES IN TO SEE THE PATIENT.
[2019-02-06] MEDS ORDERED: KETOROLAC 30 MG/ML VIAL ONE (19:10)
[2019-02-06] MEDS ORDERED: DEXAMETHASONE 10 MG/ML (DECADRON) 1 ML VIAL ONE (19:11)
[2019-02-06] MEDS ORDERED: HYDR-3875 PO (19:11)
[2019-02-06] MEDS ORDERED: PRD20T PO (19:11)
[2019-02-06] MEDS ORDERED: DEXAMETHASONE 10 MG/ML (DECADRON) 1 ML VIAL IM ONE (19:15)
[2019-02-06] MEDS ORDERED: KETOROLAC 60 MG/2 ML VIAL IM ONE (19:15)
[2019-02-06 19:24] VITALS: BP 164/93
--- OUTSIDE RECORDS SUMMARY | 2019-02-06 20:21 | XMS REPORT ---
Author Author Migration, Doctor Organization [facility] Address Unknown Phone Unavailable Care Team Providers Care Janitor Name Role Phone Migration, Doctor Unavailable Unavailable PROBLEMS Type Condition ICD9-CM Code SNM24-BH Code Onset Dates Condition Status SNOMED Code Problem Unspecified breast screening V76.10 Active 101275954 Problem Dietary surveillance and counseling V65.3 Active 863439062 Problem Counseling on substance use and abuse V65.42 Active 985151202 Problem Cervicalgia 723.1 Active 14167941 Problem Pain in soft tissues of limb 729.5 Active 33805332 Problem Sprain and strain of unspecified site of knee and leg 844.9 Active 055474765 Problem Neck sprain and strain 847.0 Active 283003830 Problem Enlargement of lymph nodes 785.6 Active 81419597 Problem Chest pain, unspecified 786.50 Active 54263086 Problem Rash and other nonspecific skin eruption 782.1 Active 127675681 Problem Abnormal weight gain 783.1 Active 748224399 Problem Unspecified sleep apnea 780.57 Active 91352003 Problem Other malaise and fatigue 780.79 Active 891046838 Problem Pain in joint, lower leg 719.46 Active 222877631 Problem Pain in joint, pelvic region and thigh 719.45 Active 888883510 Problem Pain in joint, shoulder region 719.41 Active 339218140 Problem Obesity, unspecified 278.00 Active 135674680 Problem Hormone replacement therapy (postmenopausal) V07.4 Active 470064505 Problem Other and unspecified hyperlipidemia 272.4 Active 55679178 Problem Family history of malignant neoplasm of gastrointestinal tract V16.0 Active 897497447 Problem Falling from high place on residential premises, undetermined whether accidentally or purposely inflicted E987.0 Active Problem Unspecified disorder of skin and subcutaneous tissue 709.9 Active 43969715 Problem Cellulitis and abscess of unspecified site 682.9 Active 040486000 Problem Thoracic or lumbosacral neuritis or radiculitis, unspecified 724.4 Active 504918111 Problem Acute bronchitis 466.0 Active 82553221 ALLERGIES No Information ENCOUNTERS Encounter Location Date [facility] [address] [place] [address] Dec, [facility] [address] [place] [address] Nov, [facility] [address] [place] [address] Nov, [facility] [address] [id number] [id number] Sep, Dental examination Z01.20 [facility] [address] [id number] [id number] Jun, Dental examination V72.2 [facility] [place] [address] [id number], [place] [address] Jan, [facility] [place] [id number] [address] Jan, [facility] [place] [address] [facility] [id number] [address] Oct, [facility] [place] [address] [id number] [address] Oct, [facility] [place] [id number] [address] Jul, [facility] [place] [address] [id number], [place] [address] Jul, [facility] [place] [address] [id number], [place] [address] Jun, [facility] [place] [address] [id number], [place] [address] Jun, [facility] [place] [address] [facility] [id number] [address] May, [facility] [place] [address] [facility] [id number], [place] [address] May, [facility] [place] [facility] [address] [id number] [place] [address] May, [facility] [place] [facility] [address] [id number] [place] [address] May, [facility] [place] [facility] [address] [id number] [place] [address] 6926 May, [facility] [place] [facility] [address] [id number] [place] [address]273 May, [facility] [place] [facility] [address] [id number] [place] [address] 8675 May, [facility] [place] [facility] [address] [id number] [place] [address] May, [facility] [place] [facility] [address] [id number] [place] [address] 74[address] Apr, [facility] [place] [facility] [address] [id number] [place] [address] Apr, [facility] [place] [facility] [address] [id number] [place] [address] 1326 Apr, [facility] [place] [facility] [address] [id number] [place] [address] 6[address] Apr, [facility] [place] [facility] [address] [id number] [place] [address] Apr, [facility] [place] [facility] [address] [id number] [place] [address] 7268 Apr, [facility] [place] [facility] [address] [id number] [place] [address] 132[address] Apr, [facility] [place] [facility] [address] [id number] [place] [address] 0657 Apr, [facility] [place] [facility] [address] [id number] [place] [address] 7069 Apr, [facility] [place] [facility] [address] [id number] [place] [address] 4810 Apr, [facility] [place] [facility] [address] [id number] [place] [address] 0924 Apr, 2013 [facility] [place] [facility] [address] [id number] [place] [address] 6908 Apr, 2013 [facility] [place] [facility] [address] [id number] [place] [address] 97[address] Apr, 2013 [facility] [place] [facility] [address] [id number] [place] [address] 2330 Apr, 2013 [facility] [place] [facility] [address] [id number] [place] [address]- 1034 Apr, 2013 [facility] [place] [facility] [address] [id number] [place] [address] 0013 Apr, [facility] [place] [facility] [address] [id number] [place] [address]- 9084 Apr, [facility] [place] [facility] [address] [id number] [place] [address] Mar, [facility] [place] [facility] [address] [id number] [place] [address] Mar, [facility] [place] [facility] [address] [id number] [place] [address]- 6907 Mar, [facility] [place] [facility] [address] [id number] [place] [address] Mar, [facility] [place] [facility] [address] [id number], [place] [address] Mar, [facility] [place] [facility] [address] [id number] [place] [address]- [address]01 Mar, [facility] [place] [facility] [address] [id number] [place] [address]- [address] Mar, [facility] [place] [facility] [address] [id number] [place] [address]- 8308 Mar, [facility] [place] [facility] [address] [id number] [place] [address]- 5105 Mar, [facility] [place] [facility] [address] [id number] [place] [address] 385[address] Mar, [facility] [place] [facility] [address] [id number] [place] [address]- 3886 Mar, [facility] [place] [facility] [address] [id number] [place] [address]- 4912 Mar, [facility] [place] [facility] [address] [id number] [place] [address]- 6498 February, [facility] [place] [facility] [address] [id number] [place] [address]- 4293 February, [facility] [place] [facility] [address] [id number] [place] [address]- 6620 February, [facility] [place] [facility] [address] [id number] [place] [address]- 7769 February, [facility] [place] [facility] [address] [id number] [place] [address]- 7360 February, [facility] [place] [facility] [address] [id number] [place] [address]- 2708 February, [facility] [place] [facility] [address] [id number] [place] [address]- 0282 February, [facility] [place] [facility] [address] [id number] [place] [address]- 8704 February, [facility] [place] [facility] [address] [id number] [place] [address]- 4690 February, [facility] [place] [facility] [address] [id number] [place] [address]- 0249 February, [facility] [place] [facility] [address] [id number] [place] [address]- 6208 February, [facility] [place] [facility] [address] [id number] [place] [address]- 7704 February, [facility] [place] [facility] [address] [id number] [place] [address]- 6199 Jan, [facility] [place] [facility] [address] [id number] [place] [address]- 0503 Jan, [facility] [place] [facility] [address] [id number] [place] [address]- 3585 Jan, [facility] [place] [facility] [address] [id number] [place] [address]- 6027 Jan, [facility] [place] [facility] [address] [id number] [place] [address]- 7208 Jan, [facility] [place] [facility] [address] [id number] [place] [address]- 8348 Jan, [facility] [place] [facility] [address] [id number] [place] [address]- 9130 Dec, [facility] [place] [facility] [address] [id number] [place] [address]- 4843 Dec, [facility] [place] [facility] [address] [id number] [place] [address]- 7590 Dec, [facility] [place] [facility] [address] [id number] [place] [address]- 7173 Dec, [facility] [place] [facility] [address] [id number] [place] [address]- 3552 Dec, [facility] [place] [facility] [address] [id number] [place] [address]- 7860 Dec, [facility] [place] [facility] [address] [id number] [place] [address]- 5128 Nov, [facility] [place] [facility] [address] [id number] [place] [address]- 3481 Nov, [facility] [place] [facility] [address] [id number] [place] [address]- 8969 14 Nov, 2013 [facility] [place] [facility] [address] [id number] [place] [address]- 1485 14 Nov, 2013 [facility] [place] [facility] [address] [id number] [place] [address]- 4093 Oct, [facility] [place] [facility] [address] [id number] [place] [address]- 1762 Oct, [facility] [place] [facility] [address] [id number] [place] [address]- 4000 Oct, [facility] [place] [facility] [address] [id number] [place] [address]- 9998 Oct, [facility] [place] [facility] [address] [id number] [place] [address]- 5407 Oct, [facility] [place] [facility] [address] [id number] [place] [address]- 1212 Oct, [facility] [place] [facility] [address] [id number] [place] [address]- 3457 Oct, [facility] [place] [facility] [address] [id number] [place] [address]- 4091 Oct, [facility] [place] [facility] [address] [id number] [place] [address]- 1801 Oct, [facility] [place] [facility] [address] [id number] [place] [address]- 9721 Sep, [facility] [place] [facility] [address] [id number] [address] 30 Sep, 2013 [facility] [place] [facility] [address] [id number], [place] [address]- 7692 Sep, [facility] [place] [facility] [address] [id number] [place] [address]- 7039 Sep, [facility] [place] [facility] [address] [id number] [place] [address]- 2780 16 Sep, 2013 [facility] [place] [facility] [address] [id number] [place] [address]- 8101 13 Sep, 2013 [facility] [place] [facility] [address] [id number] [place] [address]- 2753 Sep, [facility] [address] [id number] [place] [address]- 2586 Aug, [facility] [place] [facility] [address] [id number] [place] [address]- 2563 Aug, [facility] [address] [id number] [place] [address] Jul, [facility] [place] [facility] [address] [id number] [place] [address]- 4182 Jul, [facility] [address] [id number] [place] [address] Jul, [facility] [place] [facility] [address] [id number] [place] [address]- 1388 Jul, [facility] [place] [facility] [address] [id number] [place] [address]- 2732 Jul, [facility] [address] [id number] [place] [address]- 9720 Jul, [facility] [place] [facility] [address] [id number] [place] [address]- 8526 25 Jun, 2013 [facility] [address] [id number] [place] [address]- 9287 16 Jun, 2013 [facility] [place] [facility] [address] [id number] [place] [address]- 2216 13 Jun, 2013 [facility] [place] [facility] [address] [id number] [place] [address]- 1484 30 May, 2013 [facility] [place] [facility] [address] [id number] [place] [address]- 8871 May, [facility] [place] [facility] [address] [id number] [place] [address]- 6216 Apr, [facility] [place] [facility] [address] [id number] [place] [address]- 5449 Apr, [facility] [address] [id number] [place] [address]- 6818 Apr, [facility] [place] [facility] [address] [id number] [place] [address]- 1235 Mar, [facility] [place] [facility] [address] [id number] [place] [address]- 0366 Mar, [facility] [place] [facility] [address] [id number] [place] [address]- 0776 February, [facility] [place] [facility] [address] [id number] [place] [address]- 5415 February, [facility] [place] [facility] [address] [id number] [place] [address]- 6606 Jan, [facility] [place] [facility] [address] [id number] [place] [address]- 0906 Jan, [facility] [place] [facility] [address] [id number] [place] [address]- 3316 Dec, [facility] [place] [facility] [address] [id number] [place] [address]- 6966 Nov, [facility] [place] [facility] [address] [id number] [place] [address]- 0826 Nov, [facility] [place] [facility] [address] [id number] [place] [address]- 9286 Nov, [facility] [place] [facility] [address] [id number] [place] [address]- 9116 Oct, [facility] [place] [facility] [address] [id number] [place] [address]- 1546 Aug, [facility] [place] [facility] [address] [id number] [place] [address]- 1516 Aug, [facility] [place] [facility] [address] [id number] [place] [address]- 5676 Aug, [facility] [place] [facility] [address] [id number] [place] [address]- 0813 08 Aug, 2012 [facility] [place] [facility] [address] [id number] [place] [address]- 1350 26 Jun, 2012 [facility] [place] [facility] [address] [id number] [place]186 10 Jun, 2012 [facility] [place] [facility] [address] [id number] [place] [address]- 2436 08 Jun, 2012 [facility] [place] [facility] [address] [id number] [place] [address]- 0379 07 Jun, 2012 [facility] [place] [facility] [address] [id number] [place] [address]- 8999 05 Jun, 2012 [facility] [place] [facility] [address] [id number] [place] [address]- 5584 31 May, 2012 [facility] [place] [facility] [address] [id number] [place] [address]- 6186 14 May, 2012 [facility] [place] [facility] [address] [id number] [place] [address]- 4492 08 May, 2012 [facility] [place] [facility] [address] [id number] [place] [address]- 4912 May, [facility] [place] [facility] [address] [id number] [place] [address]- 9879 Mar, [facility] [place] [facility] [address] [id number] [place] [address]- 1230 Mar, [facility] [place] [facility] [address] [id number] [place] [address]- 7418 February, [facility] [place] [facility] [address] [id number] [place] [address]- 3203 February, [facility] [place] [facility] [address] [id number] [place] [address]- 1506 Jan, [facility] [place] [facility] [address] [id number] [place] [address]- 0693 17 Jan, 2012 [facility] [place] [facility] [address] [id number] [place] [address]- 3554 13 Jan, 2012 [facility] [place] [facility] [address] [id number] [place] [address]- 9600 12 Jan, 2012 [facility] [place] [facility] [address] [id number] [place] [address]- 0080 11 Jan, 2012 [facility] [place] [facility] [address] [id number] [place] [address]- 5773 20 Nov, 2011 [facility] [place] [facility] [address] [id number] [place] [address]- 1644 15 Nov, 2011 [facility] [place] [facility] [address] [id number] [place] [address]- 4217 10 Nov, 2011 [facility] [place] [facility] [address] [id number] [place] [address]- 5468 Oct, [facility] [place] [facility] [address] [id number] [place] [address]- 6987 14 Sep, 2011 [facility] [place] [facility] [address] [id number] [place] [address]- 7636 Sep, [facility] [place] [facility] [address] [id number] [place] [address]- 5526 Sep, [facility] [place] [facility] [address] [id number] [place] [address]- 7240 22 Aug, 2011 [facility] [place] [facility] [address] [id number] [place] [address]- 1688 Aug, [facility] [place] [facility] [address] [id number] [place] [address]- 4044 Jul, [facility] [place] [facility] [address] [id number] [place] [address]- 0308 Jul, [facility] [place] [facility] [address] [id number] [place] [address]44 18 Jun, 2010 [facility] [place] [facility] [address] [id number] [place] [address]- 2546 17 Nov, 2009 [facility] [place] [address] [facility] [id number] [address]- [address]46 Aug, [facility] [place] [address] [facility] [id number], [place] [address]- 2546 Mar, [facility] [place] [address] [facility] [id number], [place] [address]- 2546 Nov, IMMUNIZATIONS No Known Immunizations SOCIAL HISTORY Never Assessed REASON FOR [place]ISIT [place] [place] VITAL SIGNS MEDICATIONS Unknown Medications RESULTS No Results PROCEDURES No Known procedures INSTRUCTIONS MEDICATIONS ADMINISTERED No Known Medications
--- OUTSIDE RECORDS SUMMARY | 2019-02-06 20:25 | XMS REPORT | Continuity of Care Document ---
Author Organization Unknown Address Unknown Allergies Active Description Code Type Severity Reaction Onset Reported/Identified Relationship to Patient Clinical Status Yes codeine Drug Allergy N/A N/A 12/17/2008 Yes Percocet Drug Allergy N/A N/A 12/17/2008 Yes codeine Drug Allergy 12/17/2008 Yes Percocet 7.5/325 Drug Allergy 12/17/2008 Yes acetaminophen [id number] Drug Allergy Mild N/A 09/29/2011 Yes oxycodone HCl [id number] Drug Allergy Mild N/A 09/29/2011 Yes Sulfa (Sulfonamide Antibiotics) Drug Allergy N/A N/A 04/09/2013 Yes No Known Allergies [id number] Drug Allergy Unknown N/A 07/09/2018 Medications There is no data. Problems Date [...] LIVE DIAZ APRN 840.9 SPRAIN/STRAIN SHOULDER/ARM 05/22/2008 [employer] SUPERINTENDENT, LIVE T 840.9 SPRAIN/STRAIN SHOULDER/ARM 05/22/2008 LIVE DIAZ APRN T 840.9 SPRAIN/STRAIN SHOULDER/ARM 05/22/2008 KENNY DO PHILLY K 840.9 SPRAIN/STRAIN SHOULDER/ARM 05/22/2008 LIVE DIAZ APRN T 840.9 SPRAIN/STRAIN SHOULDER/ARM 05/22/2008 LIVE DIAZ APRN T 840.9 SPRAIN/STRAIN SHOULDER/ARM 05/22/2008 LIVE DIAZ APRN T 840.9 SPRAIN/STRAIN SHOULDER/ARM 05/22/2008 LIVE DIAZ APRN T 840.9 SPRAIN/STRAIN SHOULDER/ARM 05/22/2008 LIVE DIAZ APRN T 840.9 SPRAIN/STRAIN SHOULDER/ARM 05/22/2008 LIVE DIAZ APRN T 840.9 SPRAIN/STRAIN SHOULDER/ARM 05/22/2008 KENNY DO PHILLY K 840.9 SPRAIN/STRAIN SHOULDER/ARM 05/22/2008 LIVE DIAZ APRN T 840.9 SPRAIN/STRAIN SHOULDER/ARM 05/22/2008 TAE ARBOLEDA APRN A 840.9 SPRAIN/STRAIN SHOULDER/ARM 05/22/2008 KENNY DO PHILLY K 840.9 SPRAIN/STRAIN SHOULDER/ARM 05/22/2008 KENNY DO, PHILLY K 840.9 SPRAIN/STRAIN SHOULDER/ARM 05/22/2008 WHITE DDS, CHIO D 840.9 SPRAIN/STRAIN SHOULDER/ARM 05/22/2008 WHITE DDS, CHIO D 840.9 SPRAIN/STRAIN SHOULDER/ARM 05/22/2008 WHITE DDSKELLEY 840.9 SPRAIN/STRAIN SHOULDER/ARM 05/22/2008 LIVE DIAZ APRN T 840.9 SPRAIN/STRAIN SHOULDER/ARM 06/15/2008 465.9 UPPER RESPIRATORY INFECTION 06/15/2008 465.9 UPPER RESPIRATORY INFECTION 06/15/2008 NAHEED MALHOTRA, ADÁN 465.9 UPPER RESPIRATORY INFECTION 06/15/2008 465.9 UPPER RESPIRATORY INFECTION 06/15/2008 465.9 UPPER RESPIRATORY INFECTION 06/15/2008 465.9 UPPER RESPIRATORY INFECTION 06/15/2008 465.9 UPPER RESPIRATORY INFECTION 06/15/2008 465.9 UPPER RESPIRATORY INFECTION 06/15/2008 465.9 UPPER RESPIRATORY INFECTION 06/15/2008 [employer] SUPERINTENDENT, LIVE T 465.9 UPPER RESPIRATORY INFECTION 06/15/2008 [employer] SUPERINTENDENT, LIVE T 465.9 UPPER RESPIRATORY INFECTION 06/15/2008 MARIAH MALHOTRA, MILO Ponce 465.9 UPPER RESPIRATORY INFECTION 06/15/2008 [employer] SUPERINTENDENT, LIVE T 465.9 UPPER RESPIRATORY INFECTION 06/15/2008 [employer] SUPERINTENDENT, LIVE T 465.9 UPPER RESPIRATORY INFECTION 06/15/2008 [employer] SUPERINTENDENT, LIVE T 465.9 UPPER RESPIRATORY INFECTION 06/15/2008 KENNY DO, PHILLY K 465.9 UPPER RESPIRATORY INFECTION 06/15/2008 [employer] SUPERINTENDENT, LIVE T 465.9 UPPER RESPIRATORY INFECTION 06/15/2008 [employer] SUPERINTENDENT, LIVE T 465.9 UPPER RESPIRATORY INFECTION 06/15/2008 [employer]PER[employer] SUPERINTENDENT, LIVE T 465.9 UPPER RESPIRATORY INFECTION 06/15/2008 [employer] SUPERINTENDENT, LIVE T 465.9 UPPER RESPIRATORY INFECTION 06/15/2008 [employer] SUPERINTENDENT, LIVE T 465.9 UPPER RESPIRATORY INFECTION 06/15/2008 [employer]PER[employer] SUPERINTENDENT, LIVE T 465.9 UPPER RESPIRATORY INFECTION 06/15/2008 KENNY DO, PHILLY K 465.9 UPPER RESPIRATORY INFECTION 06/15/2008 [employer] SUPERINTENDENT, LIVE T 465.9 UPPER RESPIRATORY INFECTION 06/15/2008 [employer]ES [employer] SUPERINTENDENT, TAE A 465.9 UPPER RESPIRATORY INFECTION 06/15/2008 KENNY DO, PHILLY K 465.9 UPPER RESPIRATORY INFECTION 06/15/2008 KENNY DO, PHILLY K 465.9 UPPER RESPIRATORY INFECTION 06/15/2008 WHITE DDS, CHIO D 465.9 UPPER RESPIRATORY INFECTION 06/15/2008 WHITE DDS, CHIO D 465.9 UPPER RESPIRATORY INFECTION 06/15/2008 WHITE DDS, KELLEY J 465.9 UPPER RESPIRATORY INFECTION 06/15/2008 [employer] SUPERINTENDENT, LIVE T 465.9 UPPER RESPIRATORY INFECTION 06/26/2008 [...] APRN 726.90 ENTHESOPATHY OF UNSPECIFIED SITE 06/26/2008 MARIAH MALHOTRA, MILO Ponce 726.90 ENTHESOPATHY OF UNSPECIFIED SITE 06/26/2008 LIVE DIAZ APRN 726.90 ENTHESOPATHY OF UNSPECIFIED SITE 06/26/2008 LIVE DIAZ APRN 726.90 ENTHESOPATHY OF UNSPECIFIED SITE 06/26/2008 LIVE DIAZ APRN 726.90 ENTHESOPATHY OF UNSPECIFIED SITE 06/26/2008 PHILLY KENNY DO 726.90 ENTHESOPATHY OF UNSPECIFIED SITE 06/26/2008 LIVE [...] APRN 726.90 ENTHESOPATHY OF UNSPECIFIED SITE 06/26/2008 ROBLESROSALINDA RODRIGUEZ TAE A 726.90 ENTHESOPATHY OF UNSPECIFIED SITE 06/26/2008 KENNY [...] CONDITIONS OF SKIN 07/01/2008 TAE ARBOLEDA APRN 701.9 UNSPECIFIED HYPERTROPHIC AND ATROPHIC CONDITIONS OF SKIN 07/01/2008 KENNY DO, PHILLY K 701.9 UNSPECIFIED HYPERTROPHIC AND ATROPHIC CONDITIONS OF SKIN 07/01/2008 KENNY DO, PHILLY K 701.9 UNSPECIFIED HYPERTROPHIC AND ATROPHIC CONDITIONS [...] 07/15/2008 338.4 CHRONIC PAIN SYNDROME 07/15/2008 V72.31 CAFE COOK EXAM, ROUTINE 07/15/2008 338.4 CHRONIC PAIN SYNDROME 07/15/2008 V72.31 CAFE COOK EXAM, ROUTINE 07/15/2008 ADÁN FARFAN MD 338.4 CHRONIC PAIN SYNDROME 07/15/2008 ADÁN FARFAN MD V72.31 CAFE COOK EXAM, ROUTINE 07/15/2008 338.4 CHRONIC PAIN SYNDROME 07/15/2008 V72.31 CAFE COOK EXAM, ROUTINE 07/15/2008 338.4 CHRONIC PAIN SYNDROME 07/15/2008 V72.31 CAFE COOK EXAM, ROUTINE 07/15/2008 338.4 CHRONIC PAIN SYNDROME 07/15/2008 V72.31 CAFE COOK EXAM, ROUTINE 07/15/2008 338.4 CHRONIC PAIN SYNDROME 07/15/2008 V72.31 CAFE COOK EXAM, ROUTINE 07/15/2008 338.4 CHRONIC PAIN SYNDROME 07/15/2008 V72.31 CAFE COOK EXAM, ROUTINE 07/15/2008 338.4 CHRONIC PAIN SYNDROME 07/15/2008 V72.31 CAFE COOK EXAM, ROUTINE 07/15/2008 LIVE DIAZ APRN 338.4 CHRONIC PAIN SYNDROME 07/15/2008 LIVE DIAZ APRN V72.31 CAFE COOK EXAM, ROUTINE 07/15/2008 LIVE DIAZ APRN 338.4 CHRONIC PAIN SYNDROME 07/15/2008 LIVE DIAZ APRN V72.31 CAFE COOK EXAM, ROUTINE 07/15/2008 MARIAH MALHOTRA, MILO Ponce 338.4 CHRONIC PAIN SYNDROME 07/15/2008 MARIAH MALHOTRA, MILO Ponce V72.31 CAFE COOK EXAM, ROUTINE 07/15/2008 LIVE DIAZ APRN T 338.4 CHRONIC PAIN SYNDROME 07/15/2008 LIVE DIAZ APRN T V72.31 CAFE COOK EXAM, ROUTINE 07/15/2008 LIVE DIAZ APRN T 338.4 CHRONIC PAIN SYNDROME 07/15/2008 [employer] SUPERINTENDENT LIVE T V72.31 CAFE COOK EXAM, ROUTINE 07/15/2008 JOE BETANCURN LIVE T 338.4 CHRONIC PAIN SYNDROME 07/15/2008 JOE BETANCURN, LIVE T V72.31 CAFE COOK EXAM, ROUTINE 07/15/2008 KENNY DO PHILLY K 338.4 CHRONIC PAIN SYNDROME 07/15/2008 KENNY DO PHILLY K V72.31 CAFE COOK EXAM, ROUTINE 07/15/2008 JOE RODRIGUEZ LIVE T 338.4 CHRONIC PAIN SYNDROME 07/15/2008 JOE RODRIGUEZ LIVE T V72.31 CAFE COOK EXAM, ROUTINE 07/15/2008 LIVE DIAZ APRN T 338.4 CHRONIC PAIN SYNDROME 07/15/2008 JOE RODRIGUEZ LIVE T V72.31 CAFE COOK EXAM, ROUTINE 07/15/2008 JOE RODRIGUEZ LIVE T 338.4 CHRONIC PAIN SYNDROME 07/15/2008 JOE RODRIGUEZ LIVE T V72.31 CAFE COOK EXAM, ROUTINE 07/15/2008 JOE RODRIGUEZ LIVE T 338.4 CHRONIC PAIN SYNDROME 07/15/2008 JOE RODRIGUEZ LIVE T V72.31 CAFE COOK EXAM, ROUTINE 07/15/2008 JOE RODRIGUEZ LIVE T 338.4 CHRONIC PAIN SYNDROME 07/15/2008 JOE RODRIGUEZ LIVE T V72.31 CAFE COOK EXAM, ROUTINE 07/15/2008 JOE RODRIGUEZ LIVE T 338.4 CHRONIC PAIN SYNDROME 07/15/2008 JOE RODRIGUEZ LIVE T V72.31 CAFE COOK EXAM, ROUTINE 07/15/2008 KENNY DO PHILLY K 338.4 CHRONIC PAIN SYNDROME 07/15/2008 KENNY DO PHILLY K V72.31 CAFE COOK EXAM, ROUTINE 07/15/2008 LIVE DIAZ APRN T 338.4 CHRONIC PAIN SYNDROME 07/15/2008 JOE RODRIGUEZ LIVE T V72.31 CAFE COOK EXAM, ROUTINE 07/15/2008 TAE ARBOLEDA APRN A 338.4 CHRONIC PAIN SYNDROME 07/15/2008 TAE ARBOLEDA APRN A V72.31 CAFE COOK EXAM, ROUTINE 07/15/2008 KENNY DO, PHILLY K 338.4 CHRONIC PAIN SYNDROME 07/15/2008 KENNY DO, PHILLY K V72.31 CAFE COOK EXAM, ROUTINE 07/15/2008 KENNY DO, PHILLY K 338.4 CHRONIC PAIN SYNDROME 07/15/2008 KENNY DO, PHILLY K V72.31 CAFE COOK EXAM, ROUTINE 07/15/2008 WHITE DDS, CHIO D 338.4 CHRONIC PAIN SYNDROME 07/15/2008 WHITE DDS, CHIO D V72.31 CAFE COOK EXAM, ROUTINE 07/15/2008 WHITE DDS, CHIO D 338.4 CHRONIC PAIN SYNDROME 07/15/2008 WHITE DDS, CHIO D V72.31 CAFE COOK EXAM, ROUTINE 07/15/2008 WHITE DDS, KELLEY J 338.4 CHRONIC PAIN SYNDROME 07/15/2008 WHITE DDS, KELLEY J V72.31 CAFE COOK EXAM, ROUTINE 07/15/2008 LIVE DIAZ APRN 338.4 CHRONIC PAIN SYNDROME 07/15/2008 LIVE DIAZ APRN V72.31 CAFE COOK EXAM, ROUTINE 08/05/2008 V70.0 GENERAL MEDICAL EXAM, ROUTINE, AT HEALTH CARE FACILITY 08/05/2008 V70.0 GENERAL MEDICAL EXAM, ROUTINE, AT HEALTH CARE FACILITY 08/05/2008 NAHEED MALHOTRA, ADÁN V70.0 GENERAL MEDICAL EXAM, ROUTINE, AT HEALTH [...] HEALTH CARE FACILITY 08/05/2008 CHIO COBB DDS D V70.0 GENERAL MEDICAL EXAM, ROUTINE, AT HEALTH CARE FACILITY 08/05/2008 REZA COOPERSCHIO D V70.0 GENERAL MEDICAL EXAM, ROUTINE, AT HEALTH CARE FACILITY 08/05/2008 REZA COOPERSKELLEY V70.0 GENERAL MEDICAL EXAM, ROUTINE, AT HEALTH CARE FACILITY 08/05/2008 LIVE DIAZ APRN T V70.0 GENERAL MEDICAL EXAM, ROUTINE, AT HEALTH CARE FACILITY 11/02/2008 709.1 VASCULAR DISORDERS OF SKIN 11/02/2008 709.1 VASCULAR DISORDERS OF SKIN 11/02/2008 ADÁN FARFAN MD 709.1 VASCULAR DISORDERS OF SKIN 11/02/2008 709.1 VASCULAR DISORDERS OF SKIN 11/02/2008 709.1 VASCULAR DISORDERS OF SKIN 11/02/2008 709.1 VASCULAR DISORDERS OF SKIN 11/02/2008 709.1 VASCULAR DISORDERS OF SKIN 11/02/2008 709.1 VASCULAR DISORDERS OF SKIN 11/02/2008 709.1 VASCULAR DISORDERS OF SKIN 11/02/2008 LIVE DIAZ APRN 709.1 VASCULAR DISORDERS OF SKIN 11/02/2008 LIVE DIAZ APRN 709.1 VASCULAR DISORDERS OF SKIN 11/02/2008 MARIAH MALHOTRA, MILO Pnoce 709.1 VASCULAR DISORDERS OF SKIN 11/02/2008 LIVE [...] DISORDERS OF SKIN 11/02/2008 TAE ARBOLEDA APRN A 709.1 VASCULAR DISORDERS OF SKIN 11/02/2008 KENNY DO PHILLY K 709.1 VASCULAR DISORDERS OF SKIN 11/02/2008 KENNY DO PHILLY K 709.1 VASCULAR DISORDERS OF SKIN 11/02/2008 WHITE DDSCHIO D 709.1 VASCULAR DISORDERS OF SKIN 11/02/2008 WHITE DDSCHIO 709.1 VASCULAR DISORDERS OF SKIN 11/02/2008 WHITE DDS, KELLEY Watkins 709.1 VASCULAR DISORDERS OF SKIN 11/02/2008 LIVE [...] DIAZ APRN T V70.5 PREEMPLOYMENT/PRESCHOOL EXAM 04/14/2009 KENNY PHILLY CREWS K V70.5 PREEMPLOYMENT/PRESCHOOL EXAM 04/14/2009 LIVE DIAZ APRN T V70.5 PREEMPLOYMENT/PRESCHOOL EXAM 04/14/2009 ROBLESAlfonzo RODRIGUEZ TAE A V70.5 PREEMPLOYMENT/PRESCHOOL EXAM 04/14/2009 PHILLY KENNY DO V70.5 PREEMPLOYMENT/PRESCHOOL EXAM 04/14/2009 KENNY DOPHILLY K V70.5 PREEMPLOYMENT/PRESCHOOL EXAM 04/14/2009 WHITE DDS, CHIO D V70.5 PREEMPLOYMENT/PRESCHOOL EXAM 04/14/2009 WHITE DDS, CHIO D V70.5 PREEMPLOYMENT/PRESCHOOL EXAM 04/14/2009 WHITE DDS, KELLEY J V70.5 PREEMPLOYMENT/PRESCHOOL EXAM 04/14/2009 LIVE DIAZ APRN T V70.5 PREEMPLOYMENT/PRESCHOOL EXAM 04/28/2009 133.0 SCABIES 04/28/2009 133.0 SCABIES 04/28/2009 NAHEED MALHOTRA, ADÁN 133.0 SCABIES 04/28/2009 133.0 SCABIES 04/28/2009 133.0 SCABIES 04/28/2009 133.0 SCABIES 04/28/2009 133.0 SCABIES 04/28/2009 133.0 SCABIES 04/28/2009 133.0 SCABIES 04/28/2009 LIVE DIAZ APRN T 133.0 SCABIES 04/28/2009 LIVE DIAZ APRN T 133.0 SCABIES 04/28/2009 MARIAH MALHOTRA, MILO Ponce 133.0 SCABIES 04/28/2009 LIVE DIAZ APRN T 133.0 SCABIES 04/28/2009 LIVE DIAZ APRN T 133.0 SCABIES 04/28/2009 JOE RODRIGUEZ LIVE T 133.0 SCABIES 04/28/2009 PHILLY KENNY DO K 133.0 SCABIES 04/28/2009 LIVE DIAZ APRN T 133.0 SCABIES 04/28/2009 LIVE DIAZ APRN T 133.0 SCABIES 04/28/2009 LIVE DIAZ APRN T 133.0 SCABIES 04/28/2009 LIVE DIAZ APRN T 133.0 SCABIES 04/28/2009 LIVE DIAZ APRN T 133.0 SCABIES 04/28/2009 LIVE DIAZ APRN T 133.0 SCABIES 04/28/2009 KENNY DO, PHILLY K 133.0 SCABIES 04/28/2009 [employer] SUPERINTENDENT, LIVE T 133.0 SCABIES 04/28/2009 ROBLES RODRIGUEZ, TAE A 133.0 SCABIES 04/28/2009 KENNY DO, PHILLY K 133.0 SCABIES 04/28/2009 KENNY DO, PHILLY K 133.0 SCABIES 04/28/2009 WHITE DDS, CHIO D 133.0 SCABIES 04/28/2009 WHITE DDS, CHIO D 133.0 SCABIES 04/28/2009 WHITE DDS, KELLEY J 133.0 SCABIES 04/28/2009 [employer] SUPERINTENDENT, LIVE T 133.0 SCABIES 07/22/2009 786.2 cough 07/22/2009 786.2 cough 07/22/2009 NAHEED MALHOTRA, ADÁN 786.2 cough 07/22/2009 786.2 cough 07/22/2009 786.2 COUGH 07/22/2009 786.2 COUGH 07/22/2009 786.2 COUGH 07/22/2009 786.2 COUGH 07/22/2009 786.2 COUGH 07/22/2009 [employer] SUPERINTENDENT, LIVE T 786.2 COUGH 07/22/2009 [employer] SUPERINTENDENT, LIVE T 786.2 COUGH 07/22/2009 MARIAH MALHOTRA, MILO Ponce 786.2 COUGH 07/22/2009 [employer] SUPERINTENDENT, LIVE T 786.2 COUGH 07/22/2009 [employer] SUPERINTENDENT, LIVE T 786.2 COUGH 07/22/2009 [employer] SUPERINTENDENT, LIVE T 786.2 COUGH 07/22/2009 KENNY DO, PHILLY K 786.2 COUGH 07/22/2009 [employer] SUPERINTENDENT, LIVE T 786.2 COUGH 07/22/2009 [employer] SUPERINTENDENT, LIVE T 786.2 COUGH 07/22/2009 [employer] SUPERINTENDENT, LIVE T 786.2 COUGH 07/22/2009 [employer] SUPERINTENDENT, LIVE T 786.2 COUGH 07/22/2009 [employer] SUPERINTENDENT, LIVE T 786.2 COUGH 07/22/2009 [employer] SUPERINTENDENT, LIVE T 786.2 COUGH 07/22/2009 KENNY DO, PHILLY K 786.2 COUGH 07/22/2009 [employer] SUPERINTENDENT, LIVE T 786.2 COUGH 07/22/2009 ROBLES RODRIGUEZ, [...] V74.1 SCREENING EXAMINATION FOR PULMONARY TUBERCULOSIS 12/07/2009 MARIAH MALHOTRA, MILO Ponce V74.1 SCREENING EXAMINATION FOR PULMONARY TUBERCULOSIS 12/07/2009 LIVE DIAZ APRN V74.1 SCREENING EXAMINATION FOR PULMONARY TUBERCULOSIS 12/07/2009 LIVE DIAZ APRN V74.1 SCREENING EXAMINATION FOR PULMONARY TUBERCULOSIS 12/07/2009 LIVE DIAZ APRN V74.1 SCREENING EXAMINATION FOR PULMONARY TUBERCULOSIS 12/07/2009 KENNY , PHILLY K V74.1 SCREENING EXAMINATION FOR PULMONARY [...] V74.1 SCREENING EXAMINATION FOR PULMONARY TUBERCULOSIS 12/07/2009 ROBLESTAE TELLEZ APRN A V74.1 SCREENING EXAMINATION FOR PULMONARY TUBERCULOSIS 12/07/2009 KENNY DO, PHILLY K V74.1 SCREENING EXAMINATION FOR PULMONARY TUBERCULOSIS 12/07/2009 KENNY DO, PHILLY K V74.1 SCREENING EXAMINATION FOR PULMONARY TUBERCULOSIS 12/07/2009 WHITE DDS, CHIO D V74.1 SCREENING EXAMINATION FOR PULMONARY TUBERCULOSIS 12/07/2009 WHITE DDS, CHIO D V74.1 SCREENING EXAMINATION FOR PULMONARY TUBERCULOSIS 12/07/2009 WHITE DDS, KELLEY J V74.1 SCREENING EXAMINATION FOR PULMONARY TUBERCULOSIS 12/07/2009 [...] 12/15/2009 MILO LEMUS MD 564.00 CONSTIPATION 12/15/2009 MILO LEMUS MD 788.1 PAIN DURING URINATION (DYSURIA) 12/15/2009 LIVE DIAZ APRN T 564.00 CONSTIPATION 12/15/2009 LIVE DIAZ APRN 788.1 PAIN DURING URINATION (DYSURIA) 12/15/2009 LIVE DIAZ APRN T 564.00 CONSTIPATION 12/15/2009 LIVE DIAZ APRN 788.1 PAIN DURING URINATION (DYSURIA) 12/15/2009 LIVE DIAZ APRN T 564.00 CONSTIPATION 12/15/2009 LIVE DIAZ APRN 788.1 PAIN DURING URINATION (DYSURIA) 12/15/2009 KENNY DO, PHILLY K 564.00 CONSTIPATION 12/15/2009 KENNY DO, PHILLY K 788.1 PAIN DURING URINATION (DYSURIA) 12/15/2009 LIVE DIAZ APRN T 564.00 CONSTIPATION 12/15/2009 LIEV DIAZ APRN 788.1 PAIN DURING URINATION (DYSURIA) 12/15/2009 LIVE DIAZ APRN T 564.00 CONSTIPATION 12/15/2009 LIVE DIAZ APRN 788.1 PAIN DURING URINATION (DYSURIA) 12/15/2009 LIVE DIAZ APRN T 564.00 CONSTIPATION 12/15/2009 LIVE DIAZ APRN 788.1 PAIN DURING URINATION (DYSURIA) 12/15/2009 LIVE IDAZ APRN T 564.00 CONSTIPATION 12/15/2009 LIVE DIAZ APRN 788.1 PAIN DURING URINATION (DYSURIA) 12/15/2009 LIVE DIAZ APRN T 564.00 CONSTIPATION 12/15/2009 LIVE DIAZ APRN T 788.1 PAIN DURING URINATION (DYSURIA) 12/15/2009 LIVE DIAZ APRN T 564.00 CONSTIPATION 12/15/2009 LIVE DIAZ APRN 788.1 PAIN DURING URINATION (DYSURIA) 12/15/2009 KENNY DO, PHILLY K 564.00 CONSTIPATION 12/15/2009 KENNY DO, PHILLY K 788.1 PAIN DURING URINATION (DYSURIA) 12/15/2009 LIVE DIAZ APRN T 564.00 CONSTIPATION 12/15/2009 LIVE DIAZ APRN T 788.1 PAIN DURING URINATION (DYSURIA) 12/15/2009 [employer] SUPERINTENDENT, TAE A 564.00 CONSTIPATION 12/15/2009 ROBLES [employer]PER[employer] SUPERINTENDENT, TAE A 788.1 PAIN DURING URINATION (DYSURIA) [...] SINUSITIS ACUTE 12/23/2009 461.9 SINUSITIS ACUTE 12/23/2009 ADÁN FARFAN MD 461.9 SINUSITIS ACUTE 12/23/2009 461.9 SINUSITIS ACUTE 12/23/2009 461.9 SINUSITIS ACUTE 12/23/2009 461.9 SINUSITIS ACUTE 12/23/2009 461.9 SINUSITIS ACUTE 12/23/2009 461.9 SINUSITIS ACUTE 12/23/2009 461.9 SINUSITIS ACUTE 12/23/2009 LIVE DIAZ APRN 461.9 SINUSITIS ACUTE 12/23/2009 LIVE DIAZ APRN 461.9 SINUSITIS ACUTE 12/23/2009 MILO LEMUS MD 461.9 SINUSITIS ACUTE 12/23/2009 LIVE DIAZ APRN 461.9 SINUSITIS ACUTE 12/23/2009 LIVE DIAZ APRN 461.9 SINUSITIS ACUTE 12/23/2009 [employer]E [employer] SUPERINTENDENT, LIVE T 461.9 SINUSITIS ACUTE 12/23/2009 KENNY DO, [...] 461.9 SINUSITIS ACUTE 12/23/2009 TAE ARBOLEDA APRN A 461.9 SINUSITIS ACUTE 12/23/2009 KENNY DO, PHILLY K 461.9 SINUSITIS ACUTE 12/23/2009 KENNY DO, PHILLY K 461.9 SINUSITIS ACUTE 12/23/2009 WHITE DDS, CHIO D 461.9 SINUSITIS ACUTE 12/23/2009 WHITE DDSCHIO D 461.9 SINUSITIS ACUTE 12/23/2009 WHITE DDS, [...] 06/01/2010 786.07 WHEEZING 06/01/2010 LIVE DIAZ APRN 466.0 BRONCHITIS, ACUTE 06/01/2010 LIVE DIAZ APRN 724.2 PAIN LOW BACK 06/01/2010 LIVE DIAZ APRN T 786.07 WHEEZING 06/01/2010 LIVE DIAZ APRN 466.0 BRONCHITIS, ACUTE 06/01/2010 LIVE DIAZ APRN 724.2 PAIN LOW BACK 06/01/2010 LIVE DIAZ APRN 786.07 WHEEZING 06/01/2010 MARIAH MALHOTRA, MILO M 466.0 BRONCHITIS, ACUTE 06/01/2010 MARIAH MALHOTRA, MILO M 724.2 PAIN LOW BACK 06/01/2010 MARIAH MALHOTRA, MILO M 786.07 WHEEZING 06/01/2010 LIVE DIAZ APRN 466.0 BRONCHITIS, ACUTE 06/01/2010 LIVE DIAZ APRN 724.2 PAIN LOW BACK 06/01/2010 LIVE DIAZ APRN 786.07 WHEEZING 06/01/2010 LIVE DIAZ APRN 466.0 [...] DIAZ APRN T 786.07 WHEEZING 06/01/2010 [employer] SUPERINTENDENT, LIVE T 466.0 BRONCHITIS, ACUTE 06/01/2010 [employer] SUPERINTENDENT, LIVE T 724.2 PAIN LOW BACK 06/01/2010 [employer]PER[employer] SUPERINTENDENT, LIVE T 786.07 WHEEZING 06/01/2010 [employer]PER[employer] SUPERINTENDENT, LIVE T 466.0 BRONCHITIS, ACUTE 06/01/2010 [employer]PER[employer] SUPERINTENDENT, LIVE T 724.2 PAIN LOW BACK 06/01/2010 [employer]PER[employer] SUPERINTENDENT, LIVE T 786.07 WHEEZING 06/01/2010 [employer]PER[employer] SUPERINTENDENT, LIVE T 466.0 BRONCHITIS, ACUTE 06/01/2010 [employer] SUPERINTENDENT, LIVE T 724.2 PAIN LOW BACK 06/01/2010 [employer]PER[employer] SUPERINTENDENT, LIVE T 786.07 WHEEZING 06/01/2010 [employer] SUPERINTENDENT, LIVE T 466.0 BRONCHITIS, ACUTE 06/01/2010 [employer] SUPERINTENDENT, LIVE T 724.2 PAIN LOW BACK 06/01/2010 [employer] SUPERINTENDENT, LIVE T 786.07 WHEEZING 06/01/2010 [employer]PER[employer] SUPERINTENDENT, LIVE T 466.0 BRONCHITIS, ACUTE 06/01/2010 [employer] SUPERINTENDENT, LIVE T 724.2 PAIN LOW BACK 06/01/2010 [employer] SUPERINTENDENT, LIVE T 786.07 WHEEZING 06/01/2010 KENNY DO, PHILLY K 466.0 BRONCHITIS, ACUTE 06/01/2010 KENNY DO, PHILLY K 724.2 PAIN LOW BACK 06/01/2010 KENNY DO, PHILLY K 786.07 WHEEZING 06/01/2010 [employer] SUPERINTENDENT, LIVE T 466.0 BRONCHITIS, ACUTE 06/01/2010 [employer] SUPERINTENDENT, LIVE T 724.2 PAIN LOW BACK 06/01/2010 [employer] SUPERINTENDENT, LIVE T 786.07 WHEEZING 06/01/2010 [employer] SUPERINTENDENT, TAE A 466.0 BRONCHITIS, ACUTE 06/01/2010 [employer] SUPERINTENDENT, TAE A 724.2 PAIN LOW BACK 06/01/2010 [employer] SUPERINTENDENT, TAE A 786.07 WHEEZING 06/01/2010 KENNY DO, PHILLY K 466.0 BRONCHITIS, ACUTE 06/01/2010 KENNY DO, PHILLY K 724.2 PAIN LOW BACK 06/01/2010 KENNY DO, PHILLY K 786.07 WHEEZING 06/01/2010 KENNY DO, PHILLY K 466.0 BRONCHITIS, ACUTE 06/01/2010 KENNY DO, PHILLY K 724.2 PAIN LOW BACK 06/01/2010 PHILLY KENNY DO K 786.07 WHEEZING 06/01/2010 WHITE DDS, CHIO [...] 627.9 MENOPAUSAL AND POSTMENOPAUSAL DISORDER UNSPECIFIED 07/16/2010 NAHEED MALHOTRA, ADÁN 627.9 MENOPAUSAL AND POSTMENOPAUSAL DISORDER UNSPECIFIED 07/16/2010 [...] 627.9 MENOPAUSAL AND POSTMENOPAUSAL DISORDER UNSPECIFIED 07/16/2010 MARIAH MALHOTRA, MILO Ponce 627.9 MENOPAUSAL AND POSTMENOPAUSAL DISORDER UNSPECIFIED 07/16/2010 [...] MENOPAUSAL AND POSTMENOPAUSAL DISORDER UNSPECIFIED 07/16/2010 ROBLESROSALINDA RODRIGUEZ, TAE A 627.9 MENOPAUSAL AND POSTMENOPAUSAL DISORDER [...] APRN V68.1 ISSUE OF REPEAT PRESCRIPTIONS 01/04/2011 MARIAH MALHOTRA, MILO Ponce V68.1 ISSUE OF REPEAT PRESCRIPTIONS 01/04/2011 LIVE DIAZ APRN V68.1 ISSUE OF REPEAT PRESCRIPTIONS 01/04/2011 LIVE DIAZ APRN V68.1 ISSUE OF REPEAT PRESCRIPTIONS 01/04/2011 LIVE DIAZ APRN V68.1 ISSUE OF REPEAT PRESCRIPTIONS 01/04/2011 PHILLY KENNY DO V68.1 ISSUE OF REPEAT PRESCRIPTIONS 01/04/2011 LIVE DIAZ APRN V68.1 ISSUE OF REPEAT PRESCRIPTIONS 01/04/2011 LIVE DIAZ APRN V68.1 ISSUE OF REPEAT PRESCRIPTIONS 01/04/2011 LIVE DIAZ APRN V68.1 ISSUE OF REPEAT PRESCRIPTIONS 01/04/2011 LIVE DIAZ APRN V68.1 ISSUE OF REPEAT PRESCRIPTIONS 01/04/2011 LIVE DIAZ APRN V68.1 ISSUE OF REPEAT PRESCRIPTIONS 01/04/2011 LIVE DIAZ APRN V68.1 ISSUE OF REPEAT PRESCRIPTIONS 01/04/2011 MARK KENNY DOA K V68.1 ISSUE OF REPEAT PRESCRIPTIONS 01/04/2011 LIVE DIAZ APRN V68.1 ISSUE OF REPEAT PRESCRIPTIONS 01/04/2011 TAE ARBOLEDA APRN V68.1 ISSUE OF REPEAT PRESCRIPTIONS 01/04/2011 KENNY DO PHILLY K V68.1 ISSUE OF REPEAT PRESCRIPTIONS 01/04/2011 KENNY MARK CREWSA K V68.1 ISSUE OF REPEAT PRESCRIPTIONS 01/04/2011 WHITE DDS, CHIO D V68.1 ISSUE OF REPEAT PRESCRIPTIONS 01/04/2011 WHITE DDS, CHIO D V68.1 ISSUE OF REPEAT PRESCRIPTIONS 01/04/2011 WHITE DDS, KELLEY Watkins V68.1 ISSUE OF REPEAT PRESCRIPTIONS 01/04/2011 LIVE DIAZ APRN V68.1 ISSUE OF REPEAT PRESCRIPTIONS 05/30/2011 785.1 PALPITATIONS 05/30/2011 785.1 PALPITATIONS 05/30/2011 ADÁN FARFAN MD 785.1 PALPITATIONS 05/30/2011 785.1 PALPITATIONS 05/30/2011 785.1 PALPITATIONS 05/30/2011 785.1 PALPITATIONS 05/30/2011 785.1 PALPITATIONS 05/30/2011 785.1 PALPITATIONS 05/30/2011 785.1 PALPITATIONS 05/30/2011 LIVE DIAZ APRN 785.1 PALPITATIONS 05/30/2011 JOE BETANCURLIVE Mejía T 785.1 PALPITATIONS 05/30/2011 MARIAH MALHOTRA, MILO Ponce 785.1 PALPITATIONS 05/30/2011 LIVE DIAZ APRN T 785.1 PALPITATIONS 05/30/2011 JOE BETANCURLIVE Mejía T 785.1 PALPITATIONS 05/30/2011 JOE BETANCURLIVE Mejía T 785.1 PALPITATIONS 05/30/2011 KENNY DO, PHILLY K 785.1 PALPITATIONS 05/30/2011 [employer] SUPERINTENDENTLIVE Mejía T 785.1 PALPITATIONS 05/30/2011 JOE BETANCURLIVE Mejía T 785.1 PALPITATIONS 05/30/2011 [employer] SUPERINTENDENTLIVE Mejía T 785.1 PALPITATIONS 05/30/2011 [employer] SUPERINTENDENTLIVE Mejía T 785.1 PALPITATIONS 05/30/2011 [employer] SUPERINTENDENTLIVE Mejía T 785.1 PALPITATIONS 05/30/2011 [employer] SUPERINTENDENTLIVE Mejía T 785.1 PALPITATIONS 05/30/2011 KENNY DO, PHILLY K 785.1 PALPITATIONS 05/30/2011 [employer] SUPERINTENDENTLIVE Mejía T 785.1 PALPITATIONS 05/30/2011 ROBLESTAE TELLEZ APRN A 785.1 PALPITATIONS 05/30/2011 KENNY DO, PHILLY K 785.1 PALPITATIONS 05/30/2011 KENNY DO, PHILLY K 785.1 PALPITATIONS 05/30/2011 WHITE DDS, CHIO D 785.1 PALPITATIONS 05/30/2011 WHITE DDS, CHIO D 785.1 PALPITATIONS 05/30/2011 WHITE DDS, KELLEY J 785.1 PALPITATIONS 05/30/2011 LIVE DIAZ APRN T 785.1 PALPITATIONS 07/05/2011 424.0 MITRAL VALVE DISORDERS 07/05/2011 424.0 MITRAL VALVE DISORDERS 07/05/2011 ADÁN FARFAN MD 424.0 MITRAL VALVE DISORDERS 07/05/2011 424.0 MITRAL VALVE DISORDERS 07/05/2011 424.0 MITRAL VALVE DISORDERS 07/05/2011 424.0 MITRAL VALVE DISORDERS 07/05/2011 424.0 MITRAL VALVE DISORDERS 07/05/2011 424.0 MITRAL VALVE DISORDERS 07/05/2011 424.0 MITRAL VALVE DISORDERS 07/05/2011 LIVE DIAZ APRN 424.0 MITRAL VALVE DISORDERS 07/05/2011 LIVE DIAZ APRN 424.0 MITRAL VALVE DISORDERS 07/05/2011 MARIAH MALHOTRA, [...] MITRAL VALVE DISORDERS 07/05/2011 WHITE DDS, KELLEY Watkins 424.0 MITRAL VALVE DISORDERS 07/05/2011 LIVE DIAZ APRN T 424.0 MITRAL VALVE DISORDERS 08/08/2011 462 ACUTE PHARYNGITIS 08/08/2011 462 ACUTE PHARYNGITIS 08/08/2011 ADÁN FARFAN MD 462 ACUTE PHARYNGITIS 08/08/2011 462 ACUTE PHARYNGITIS 08/08/2011 462 ACUTE PHARYNGITIS 08/08/2011 462 ACUTE PHARYNGITIS 08/08/2011 462 ACUTE PHARYNGITIS 08/08/2011 462 ACUTE PHARYNGITIS 08/08/2011 462 ACUTE PHARYNGITIS 08/08/2011 LIVE DIAZ APRN 462 ACUTE PHARYNGITIS 08/08/2011 LIVE DIAZ APRN 462 ACUTE PHARYNGITIS 08/08/2011 MARIAH MALHOTRA, MILO Ponce 462 ACUTE PHARYNGITIS 08/08/2011 LIVE DIAZ APRN T 462 ACUTE PHARYNGITIS 08/08/2011 LIVE DIAZ APRN T 462 ACUTE PHARYNGITIS 08/08/2011 LIVE DIAZ APRN T 462 ACUTE PHARYNGITIS 08/08/2011 KENNY DO, PHILLY K 462 ACUTE PHARYNGITIS 08/08/2011 LIVE DIAZ APRN T 462 ACUTE PHARYNGITIS 08/08/2011 LIVE DIAZ APRN T 462 ACUTE PHARYNGITIS 08/08/2011 LIVE DIAZ APRN 462 ACUTE PHARYNGITIS 08/08/2011 LIVE DIAZ APRN 462 ACUTE PHARYNGITIS 08/08/2011 LIVE DIAZ APRN T 462 ACUTE PHARYNGITIS 08/08/2011 LIVE DIAZ APRN T 462 ACUTE PHARYNGITIS 08/08/2011 KENNY DO, PHILLY K 462 ACUTE PHARYNGITIS 08/08/2011 LIVE DIAZ APRN T 462 ACUTE PHARYNGITIS 08/08/2011 ROBLESROSALINDA RODRIGUEZ TAE A 462 ACUTE PHARYNGITIS 08/08/2011 KENNY DO, PHILLY K 462 ACUTE PHARYNGITIS 08/08/2011 KENNY DO, PHILLY K 462 ACUTE PHARYNGITIS 08/08/2011 WHITE DDS, CHIO D 462 ACUTE PHARYNGITIS 08/08/2011 WHITE DDS, CHIO D 462 ACUTE PHARYNGITIS 08/08/2011 WHITE DDS, KELLEY J 462 ACUTE PHARYNGITIS 08/08/2011 LIVE DIAZ APRN T 462 ACUTE PHARYNGITIS 12/13/2011 V07.4 HORMONE REPLACEMENT [...] REPLACEMENT THERAPY (POSTMENOPAUSAL) 12/13/2011 LIVE DIAZ APRN T V07.4 HORMONE REPLACEMENT THERAPY (POSTMENOPAUSAL) 12/13/2011 TAE [...] 719.46 KNEE PAIN 02/07/2012 LIVE DIAZ APRN T 780.79 MALAISE AND FATIGUE 02/07/2012 LIVE DIAZ APRN T 783.1 WEIGHT GAIN ABNORMAL 02/07/2012 LIVE DIAZ APRN V65.3 COUNSELING- OBESITY (DIET) 02/07/2012 KENNY DO PHILLY K 719.46 KNEE PAIN 02/07/2012 KENNY DO, PHILLY K 780.79 MALAISE AND FATIGUE 02/07/2012 KENNY DO, PHILLY K 783.1 WEIGHT GAIN ABNORMAL 02/07/2012 KENNY DO, PHILLY K V65.3 COUNSELING- OBESITY (DIET) 02/07/2012 JOE RODRIGUEZLIVE T 719.46 KNEE PAIN 02/07/2012 JOE RODRIGUEZLIVE T 780.79 MALAISE AND FATIGUE 02/07/2012 JOE RODRIGUEZLIVE T 783.1 WEIGHT GAIN ABNORMAL 02/07/2012 JOE RODRIGUEZLIVE V65.3 COUNSELING- OBESITY (DIET) 02/07/2012 ROBLES RODRIGUEZ, TAE A 719.46 KNEE PAIN 02/07/2012 ROBLES BETANCURN, TAE A 780.79 MALAISE AND FATIGUE 02/07/2012 ROBLES BETANCURN, TAE A 783.1 WEIGHT GAIN ABNORMAL 02/07/2012 ROBLES RODRIGUEZ, TAE A V65.3 COUNSELING- OBESITY (DIET) 02/07/2012 KENNY [...] D V65.3 COUNSELING- OBESITY (DIET) 02/07/2012 WHITE DDSKELLEY 719.46 KNEE PAIN 02/07/2012 WHITE DDS, KELLEY [...] LIVE DIAZ APRN 272.4 HYPERLIPIDEMIA 06/28/2012 JOE [employer]PERATIONS SUPERINTENDENT, LIVE T 729.5 LEG PAIN 06/28/2012 KENNY DO, PHILLY K 272.4 HYPERLIPIDEMIA 06/28/2012 KENNY DO, PHILLY K 729.5 LEG PAIN 06/28/2012 JOE [employer]PER[employer] SUPERINTENDENT, LIVE T 272.4 HYPERLIPIDEMIA 06/28/2012 JOE [employer] OPERATIONS SUPERINTENDENT, LIVE T 729.5 LEG PAIN 06/28/2012 JOE [employer] OPERATIONS SUPERINTENDENT, LIVE T 272.4 HYPERLIPIDEMIA 06/28/2012 JOE [employer] OPERATIONS SUPERINTENDENT, LIVE T 729.5 LEG PAIN 06/28/2012 JOE [employer] OPERATIONS SUPERINTENDENT, LIVE T 272.4 HYPERLIPIDEMIA 06/28/2012 JOE [employer] OPERATIONS SUPERINTENDENT, LIVE T 729.5 LEG PAIN 06/28/2012 JOE [employer] OPERATIONS SUPERINTENDENTLIVE Mejía T 272.4 HYPERLIPIDEMIA 06/28/2012 JOE [employer] OPERATIONS SUPERINTENDENTLIVE Mejía T 729.5 LEG PAIN 06/28/2012 JOE [employer] OPERATIONS SUPERINTENDENTLIVE Mejía T 272.4 HYPERLIPIDEMIA 06/28/2012 JOE [employer] OPERATIONS SUPERINTENDENT, LIVE T 729.5 LEG PAIN 06/28/2012 LIVE DIAZ APRN T 272.4 HYPERLIPIDEMIA 06/28/2012 JOE RODRIGUEZ LIVE T 729.5 LEG PAIN 06/28/2012 KENNY DO, PHILLY K 272.4 HYPERLIPIDEMIA 06/28/2012 KENNY DO, PHILLY K 729.5 LEG PAIN 06/28/2012 JOE [employer]PERATIONS SUPERINTENDENT, LIVE T 272.4 HYPERLIPIDEMIA 06/28/2012 JOE RODRIGEUZ LIVE T 729.5 LEG PAIN 06/28/2012 ROBLESAlfonzo RODRIGUEZ TAE A 272.4 HYPERLIPIDEMIA 06/28/2012 ROBLESAlfonzo RODRIGUEZ TAE A 729.5 LEG PAIN 06/28/2012 KENNY [...] 06/28/2012 LIVE DIAZ APRN 729.5 LEG PAIN 11/29/2012 780.57 SLEEP APNEA 11/29/2012 ADÁN FARFAN MD 780.57 SLEEP APNEA 11/29/2012 780.57 SLEEP APNEA 11/29/2012 780.57 SLEEP APNEA 11/29/2012 780.57 SLEEP APNEA 11/29/2012 780.57 SLEEP APNEA 11/29/2012 780.57 SLEEP APNEA 11/29/2012 780.57 SLEEP APNEA 11/29/2012 LIVE DIAZ APRN T 780.57 SLEEP APNEA 11/29/2012 JOE RODRIGUEZ LIVE T 780.57 SLEEP APNEA 11/29/2012 MARIAH MALHOTRA, MILO Ponce 780.57 SLEEP APNEA 11/29/2012 JOE RODRIGUEZ LIVE T 780.57 SLEEP APNEA 11/29/2012 LIVE DIAZ APRN T 780.57 SLEEP APNEA 11/29/2012 LIVE DIAZ APRN T 780.57 SLEEP APNEA 11/29/2012 KENNY DO, [...] RODRIGUEZ LIVE T 780.57 SLEEP APNEA 11/29/2012 ROBLES RODRIGUEZ TAE A 780.57 SLEEP APNEA 11/29/2012 KENNY DO, PHILLY [...] 12/16/2012 785.6 ENLARGEMENT OF LYMPH NODES 12/16/2012 LIVE DIAZ APRN T 785.6 ENLARGEMENT OF LYMPH NODES 12/16/2012 LIVE DIAZ APRN T 785.6 ENLARGEMENT OF LYMPH NODES 12/16/2012 MILO LEMUS MD 785.6 ENLARGEMENT OF LYMPH NODES 12/16/2012 LIVE DIAZ APRN T 785.6 ENLARGEMENT OF LYMPH NODES 12/16/2012 LIVE DIAZ APRN T 785.6 ENLARGEMENT OF LYMPH NODES 12/16/2012 LIVE DIAZ APRN T 785.6 ENLARGEMENT OF LYMPH NODES 12/16/2012 EFRAÍN DO, PHILLY K 785.6 ENLARGEMENT OF LYMPH [...] K 785.6 ENLARGEMENT OF LYMPH NODES 12/16/2012 LIEV DIAZ APRN T 785.6 ENLARGEMENT OF LYMPH NODES 12/16/2012 TEA ARBOLEDA APRN 785.6 ENLARGEMENT OF LYMPH NODES 12/16/2012 KENNY DO, PHILLY K 785.6 ENLARGEMENT OF LYMPH NODES 12/16/2012 KENNY DO, PHILLY K 785.6 ENLARGEMENT OF LYMPH NODES 12/16/2012 CHIO COBB DDS 785.6 ENLARGEMENT OF LYMPH NODES 12/16/2012 CHIO COBB DDS 785.6 ENLARGEMENT OF LYMPH NODES 12/16/2012 REZA DDSKELLEY 785.6 ENLARGEMENT OF LYMPH NODES 03/02/2013 MILO LEMUS MD Ot 272.4 HYPERLIPIDEMIA NEC/NOS 03/02/2013 MILO LEMUS [...] PHILLY K 786.50 CHEST PAIN 04/09/2013 JOE RODRIGUEZ LIVE T 786.50 CHEST PAIN 04/09/2013 JOE RODRIGUEZ, LIVE T 786.50 CHEST PAIN 04/09/2013 JOE RODRIGUEZ, LIVE T 786.50 CHEST PAIN 04/09/2013 JOE RODRIGUEZ, LIVE T 786.50 CHEST PAIN 04/09/2013 JOE RODRIGUEZ, LIVE T 786.50 CHEST PAIN 04/09/2013 JOE RODRIGUEZ, LIVE T 786.50 CHEST PAIN 04/09/2013 KENNY DO, PHILLY K 786.50 CHEST PAIN 04/09/2013 JOE RODRIGUEZ, LIVE T 786.50 CHEST PAIN 04/09/2013 TAE ARBOLEDA APRN A 786.50 CHEST PAIN 04/09/2013 KENNY DO, [...] AND ABSCESS OF UNSPECIFIED SITES 06/27/2013 LIVE IDAZ APRN T 682.9 CELLULITIS AND ABSCESS OF UNSPECIFIED SITES 06/27/2013 TAE ARBOLEDA APRN A 682.9 CELLULITIS AND ABSCESS OF UNSPECIFIED SITES 06/27/2013 EFRAÍN CREWS PHILLY K 682.9 CELLULITIS AND ABSCESS OF UNSPECIFIED SITES 06/27/2013 EFRAÍN CREWS, PHILLY K 682.9 CELLULITIS AND ABSCESS OF UNSPECIFIED SITES 06/27/2013 CHIO COBB DDS 682.9 CELLULITIS AND ABSCESS OF UNSPECIFIED SITES 06/27/2013 CHIO COBB DDS 682.9 CELLULITIS AND ABSCESS OF UNSPECIFIED SITES 06/27/2013 KELLEY COBB DDS 682.9 CELLULITIS AND ABSCESS OF UNSPECIFIED SITES 07/02/2013 LEANDRA AMATO MD Ot 041.12 METHICILLIN RESISTANT STAPHYLOCOCCUS AUR 07/02/2013 LEANDRA AMATO MD Ot 272.4 HYPERLIPIDEMIA NEC/NOS 07/02/2013 LM MALHOTRA, LEANDRA S Ot 305.1 TOBACCO USE DISORDER 07/02/2013 LM MALHOTRA, LEANDRA S Ot 311 DEPRESSIVE DISORDER NEC 07/02/2013 LM MALHOTRA, LEANDRA Castaneda Ot 355.8 MONONEURITIS LEG NOS 07/02/2013 LM MALHOTRA, LEANDRA Castaneda Ot 682.0 CELLULITIS OF FACE 07/02/2013 LM MLAHOTRA, LEANDRA Castaneda Ot 724.2 LUMBAGO 08/09/2013 LIVE DIAZ APRN T 844.9 SPRAIN/STRAIN KNEE/LEG 08/09/2013 MARIAH MALHOTRA, MILO Ponce 844.9 SPRAIN/STRAIN KNEE/LEG 08/09/2013 LIVE DIAZ APRN T 844.9 SPRAIN/STRAIN KNEE/LEG 08/09/2013 LIVE DIAZ APRN T 844.9 SPRAIN/STRAIN KNEE/LEG 08/09/2013 LIVE DIAZ APRN T 844.9 SPRAIN/STRAIN KNEE/LEG 08/09/2013 PHILLY KENNY DO K 844.9 SPRAIN/STRAIN KNEE/LEG 08/09/2013 LIVE DIAZ [...] 844.9 SPRAIN/STRAIN KNEE/LEG 08/09/2013 TAE ARBOLEDA APRN 844.9 SPRAIN/STRAIN KNEE/LEG 08/09/2013 KENNY DO PHILLY K 844.9 SPRAIN/STRAIN KNEE/LEG 08/09/2013 KENNY DO PHILLY K 844.9 SPRAIN/STRAIN KNEE/LEG 08/09/2013 REZA DDS, CHIO Claudio 844.9 SPRAIN/STRAIN KNEE/LEG 08/09/2013 WHITE DDSCHIO 844.9 SPRAIN/STRAIN KNEE/LEG 08/09/2013 WHITE DDSKELLEY 844.9 SPRAIN/STRAIN KNEE/LEG 10/01/2013 LM MALHOTRA, LEANDRA Castaneda Ot 682.9 CELLULITIS NOS 10/10/2013 LIVE DIAZ APRN 847.0 SPRAIN/STRAIN NECK [...] APRN T 847.0 SPRAIN/STRAIN NECK 10/10/2013 LIVE DIZA APRN E987.0 FALLING FROM RESIDENTIAL PREMISES UNDETERMINED WHETHER ACCIDENTALLY OR PURPOSELY INFLICTED 10/10/2013 KENNY DO, PHILLY K 847.0 SPRAIN/STRAIN NECK 10/10/2013 KENNY DO, PHILLY K E987.0 FALLING FROM RESIDENTIAL PREMISES UNDETERMINED WHETHER ACCIDENTALLY OR PURPOSELY INFLICTED 10/10/2013 LIVE DIAZ APRN T 847.0 SPRAIN/STRAIN NECK 10/10/2013 LIVE DIAZ APRN T E987.0 FALLING FROM RESIDENTIAL PREMISES UNDETERMINED WHETHER ACCIDENTALLY OR PURPOSELY INFLICTED 10/10/2013 ROBLES JENNIFER, TAE A 847.0 SPRAIN/STRAIN NECK 10/10/2013 ROBLESROSALINDA BETANCURN, TAE A E987.0 FALLING FROM RESIDENTIAL PREMISES [...] OR PURPOSELY INFLICTED 10/27/2013 LIVE DIAZ APRN T 724.4 THORACIC [...] OR RADICULITIS UNSPECIFIED 10/27/2013 TAE ARBOLEDA APRN 724.4 THORACIC OR LUMBOSACRAL NEURITIS OR RADICULITIS UNSPECIFIED 10/27/2013 MARK KENNY DOA K 724.4 THORACIC OR LUMBOSACRAL NEURITIS OR RADICULITIS UNSPECIFIED 10/27/2013 MARK KENNY DOA K 724.4 THORACIC OR LUMBOSACRAL NEURITIS OR RADICULITIS UNSPECIFIED 10/27/2013 REZA COOPERSCHIO 724.4 THORACIC OR LUMBOSACRAL NEURITIS OR RADICULITIS UNSPECIFIED 10/27/2013 REZA COOPERSCHIO 724.4 THORACIC OR LUMBOSACRAL NEURITIS OR RADICULITIS UNSPECIFIED 10/27/2013 REZA COOPERSKELLEY 724.4 THORACIC OR LUMBOSACRAL NEURITIS OR RADICULITIS UNSPECIFIED 11/28/2013 LIVE DIAZ APRN 719.41 PAIN- SHOULDER 11/28/2013 LIVE DIAZ APRN 782.1 RASH 11/28/2013 JOE [employer] SUPERINTENDENT, LIVE T 719.41 PAIN- SHOULDER 11/28/2013 LIVE DIAZ APRN T 782.1 RASH 11/28/2013 LIVE DIAZ APRN T 719.41 PAIN- SHOULDER 11/28/2013 LIVE DIAZ APRN T 782.1 RASH 11/28/2013 LIVE DIAZ APRN T 719.41 PAIN- SHOULDER 11/28/2013 LIVE DIAZ APRN T 782.1 RASH 11/28/2013 LIVE DIAZ APRN 719.41 PAIN- SHOULDER 11/28/2013 LIVE DIAZ APRN 782.1 RASH 11/28/2013 KENNY DO, PHILLY K 719.41 PAIN- SHOULDER 11/28/2013 KENNY DO, PHILLY K 782.1 RASH 11/28/2013 LIVE DIAZ APRN T 719.41 PAIN- SHOULDER 11/28/2013 LIVE DIAZ APRN T 782.1 RASH 11/28/2013 TAE ARBOLEDA APRN A 719.41 PAIN- SHOULDER 11/28/2013 CAROLE ARBOLEDA APRNIDI A 782.1 RASH 11/28/2013 KENNY DO, PHILLY [...] LIVE DIAZ APRN 719.45 PAIN- HIP 02/02/2014 CRAOLE ARBOLEDA APRNIDI A 719.45 PAIN- HIP 02/02/2014 PHILLY KENNY DO K 719.45 PAIN- HIP 02/02/2014 KENNY PHILLY CREWS K 719.45 PAIN- HIP 02/02/2014 WHITE DDS, CHIO Claudio 719.45 PAIN- HIP 02/02/2014 WHITE DDS, CHIO Claudio 719.45 PAIN- HIP 02/02/2014 WHITE DDS, KELLEY [employer] 719.45 PAIN- HIP 03/21/2014 LIVE DIAZ APRN 723.1 CERVICALGIA 03/21/2014 PHILLY KENNY DO K 723.1 CERVICALGIA 03/21/2014 LIVE DIAZ APRN 723.1 CERVICALGIA 03/21/2014 TAE ARBOLEDA APRN A 723.1 CERVICALGIA 03/21/2014 PHILLY KENNY DO K 723.1 CERVICALGIA 03/21/2014 KENNY PHILLY CREWS K 723.1 CERVICALGIA 03/21/2014 WHITE DDS, CHIO Claudio 723.1 CERVICALGIA 03/21/2014 WHITE DDS, CHIO Claudio 723.1 CERVICALGIA 03/21/2014 WHITE DDS, KELLEY Watkins 723.1 CERVICALGIA 03/26/2014 MIRELA HUANG APRN Ot 272.0 PURE HYPERCHOLESTEROLEM 03/26/2014 MIRELA HUANG APRN Ot 305.1 TOBACCO USE DISORDER 03/26/2014 MIRELA HUANG APRN Ot 311 DEPRESSIVE DISORDER NEC 03/26/2014 MIRELA HUANG APRN Ot 401.9 HYPERTENSION NOS 03/26/2014 MIRELA HUANG APRN Ot 723.1 CERVICALGIA 03/26/2014 MIRELA HUANG APRN Ot 723.4 BRACHIAL NEURITIS NOS 03/26/2014 MIRELA HUANG APRN Ot 782.3 EDEMA 04/30/2014 TAE ARBOLEDA APRN V16.0 FAMILY HX COLON CANCER 04/30/2014 TAE ARBOLEDA APRN V65.42 COUNSELING - SMOKING CESSATION 04/30/2014 TAE ARBOLEDA APRN V76.10 BREAST CANCER SCREENING 04/30/2014 PHILLY KENNY DO V16.0 FAMILY HX COLON CANCER 04/30/2014 PHILLY KENNY DO V65.42 COUNSELING - SMOKING CESSATION 04/30/2014 PHILLY KENNY DO V76.10 BREAST CANCER SCREENING 04/30/2014 EFRAÍN CREWS PHILLY K V16.0 FAMILY HX COLON CANCER 04/30/2014 KENNY MARK CREWSA K V65.42 COUNSELING - SMOKING CESSATION 04/30/2014 EFRAÍN MARK CREWSA K V76.10 BREAST CANCER SCREENING [...] HX COLON CANCER 04/30/2014 WHITE DDS, KELLEY Watkins V65.42 COUNSELING - SMOKING CESSATION 04/30/2014 WHITE DDS, KELLEY Watkins V76.10 BREAST CANCER SCREENING 05/04/2014 KENNY PHILLY CREWS K 466.0 BRONCHITIS, ACUTE 05/04/2014 PHILLY KENNY DO K 709.9 UNSPECIFIED DISORDER OF SKIN AND SUBCUTANEOUS TISSUE 05/04/2014 KENNY PHILLY CREWS K 466.0 BRONCHITIS, ACUTE 05/04/2014 KENNY MARK CREWSA K 709.9 UNSPECIFIED DISORDER OF SKIN AND SUBCUTANEOUS TISSUE 05/04/2014 WHITE DDS, CHIO D 466.0 BRONCHITIS, ACUTE 05/04/2014 WHITE ALLISONS, CHIO D 709.9 UNSPECIFIED DISORDER OF SKIN AND SUBCUTANEOUS TISSUE 05/04/2014 WHITE DDS, CHIO D 466.0 BRONCHITIS, ACUTE 05/04/2014 WHITE DDS, CHIO D 709.9 UNSPECIFIED DISORDER OF SKIN AND SUBCUTANEOUS TISSUE 05/04/2014 WHITE DDS, KELLEY J 466.0 BRONCHITIS, ACUTE 05/04/2014 WHITE ALLISONSKELLEY J 709.9 UNSPECIFIED DISORDER OF SKIN AND SUBCUTANEOUS TISSUE 01/14/2018 LIVE DIAZ Ot 724.4 LUMBOSACRAL NEURITIS NOS 01/14/2018 LIVE DIAZ Ot 719.45 JOINT PAIN-PELVIS 01/14/2018 LIVE DIAZ Ot 724.4 LUMBOSACRAL NEURITIS NOS 01/14/2018 JOE, LIVE T [employer] Ot 733.90 BONE CARTILAGE DIS NOS 01/14/2018 LIVE DIAZ [employer] Ot 722.0 CERVICAL DISC DISPLACMNT 01/14/2018 LVIE DIAZ [employer] Ot 793.7 NOSP (ABN) FINDINGS ON RADIOLOGICAL OT 01/14/2018 TAE ARBOLEDA Jerome [employer] SUPERINTENDENT Ot V16.0 FAMILY HX-GI MALIGNANCY 01/14/2018 CAROLE ARBOLEDAAIDEN Cano [employer] SUPERINTENDENT Ot V65.42 COUNSELING ON SUBSTANCE USE AND ABUSE 01/14/2018 ROBLESCAROLETAE A [employer]PER[employer] SUPERINTENDENT Ot V72.31 ROUTINE GYNECOLOGICAL EXAMINATION 01/14/2018 ROBLES, TAE A [employer] SUPERINTENDENT Ot V76.12 OTH SCREEN MAMMO-MALIGN NEOPLASM OF [...] 01/17/2018 KORTNEY DOYLE DO Ot Z79.899 OTHER SNF (CURRENT) DRUG THERAPY 01/17/2018 LIVE DIAZ Ot 724.4 LUMBOSACRAL NEURITIS NOS 01/17/2018 LIVE DIAZ Ot 719.45 JOINT PAIN-PELVIS 01/17/2018 LIVE DIAZP Ot 724.4 LUMBOSACRAL NEURITIS NOS 01/17/2018 LIVE DIAZ Ot 733.90 BONE CARTILAGE DIS NOS 01/17/2018 LIVE DIAZ Ot 722.0 CERVICAL DISC DISPLACMNT 01/17/2018 LIVE DIAZ [employer] Ot 793.7 NOSP (ABN) FINDINGS ON RADIOLOGICAL OT 01/17/2018 ROBLESCAROLETAEAIDEN Cano APRN Ot V16.0 FAMILY HX-GI MALIGNANCY 01/17/2018 ROBLES, TAE A [employer]PER[employer] SUPERINTENDENT Ot V65.42 COUNSELING ON SUBSTANCE USE AND ABUSE 01/17/2018 ROBLES, TAE A [employer]PER[employer] SUPERINTENDENT Ot V72.31 ROUTINE GYNECOLOGICAL EXAMINATION 01/17/2018 TAE ARBOLEDA APRN Ot V76.12 OTH SCREEN MAMMO-MALIGN NEOPLASM OF ASHLEE 01/17/2018 TAE ARBOLEDA APRN Ot V76.12 OTH SCREEN MAMMO-MALIGN NEOPLASM OF ASHLEE 01/18/2018 KORTNEY DOYLE DO Ot F32.9 MAJOR DEPRESSIVE DISORDER, SINGLE EPISOD 01/18/2018 KORTNEY DOYLE DO Ot G89.4 CHRONIC PAIN SYNDROME 01/18/2018 KORTNEY DOYLE DO Ot I10 ESSENTIAL (PRIMARY) HYPERTENSION 01/18/2018 KORTNEY DOYLE DO Ot M54.16 RADICULOPATHY, LUMBAR REGION 01/18/2018 KORTNEY DOYLE DO Ot Z79.899 OTHER SNF (CURRENT) DRUG THERAPY 04/12/2018 KORTNEY DOYLE DO Ot M54.16 RADICULOPATHY, LUMBAR REGION 05/03/2018 KORTNEY DOYLE DO Ot M54.16 RADICULOPATHY, LUMBAR REGION 05/10/2018 KORTNEY DOYLE DO Ot M54.16 RADICULOPATHY, LUMBAR REGION 07/09/2018 LIVE DIAZ [employer] Ot 724.4 LUMBOSACRAL NEURITIS NOS 07/09/2018 LIVE DIAZ [employer] Ot 719.45 JOINT PAIN-PELVIS 07/09/2018 LIVE DIAZ [employer] Ot 724.4 LUMBOSACRAL NEURITIS NOS 07/09/2018 LIVE DIAZ [employer] Ot 733.90 BONE CARTILAGE DIS NOS 07/09/2018 LIVE DIAZ [employer] Ot 722.0 CERVICAL DISC DISPLACMNT 07/09/2018 LIVE DIAZ [employer] Ot 793.7 NOSP (ABN) FINDINGS ON RADIOLOGICAL OT 07/09/2018 TAE ARBOLEDA APRN Ot V16.0 FAMILY HX-GI MALIGNANCY 07/09/2018 TAE ARBOLEDA APRN Ot V65.42 COUNSELING ON SUBSTANCE USE AND ABUSE 07/09/2018 TAE ARBOLEDA APRN Ot V72.31 ROUTINE GYNECOLOGICAL EXAMINATION 07/09/2018 TAE ARBOLEDA APRN Ot V76.12 OTH SCREEN MAMMO-MALIGN NEOPLASM OF ASHLEE 07/09/2018 TAE ARBOLEDA APRN Ot V76.12 OTH SCREEN MAMMO-MALIGN NEOPLASM OF ASHLEE 07/09/2018 KORTNEY DOYLE DO Ot M54.16 RADICULOPATHY, LUMBAR REGION 07/11/2018 RINKU MAURICIO MD Ot E66.09 OTHER OBESITY DUE TO EXCESS CALORIES 07/11/2018 RINKU MAURICIO MD Ot F17.210 NICOTINE DEPENDENCE, CIGARETTES, UNCOMPL 07/11/2018 RINKU MAURICIO MD Ot F32.9 MAJOR DEPRESSIVE DISORDER, SINGLE EPISOD 07/11/2018 RINKU MAURICIO MD Ot J20.9 ACUTE BRONCHITIS, UNSPECIFIED 07/11/2018 RINKU MAURICIO MD Ot J44.0 CHRONIC OBSTRUCTIVE PULMON DISEASE W ACU 07/11/2018 RINKU MAURICIO MD Ot J44.1 CHRONIC OBSTRUCTIVE PULMONARY DISEASE W 07/11/2018 RINKU MAURICIO MD Ot Z68.38 BODY MASS INDEX (BMI) 38.0-38.9, ADULT 01/11/2019 LIVE DIAZ [employer] Ot 724.4 LUMBOSACRAL NEURITIS NOS 01/11/2019 LIVE DIAZ [employer] Ot 719.45 JOINT PAIN-PELVIS 01/11/2019 LIVE DIAZ [employer] Ot 724.4 LUMBOSACRAL NEURITIS NOS 01/11/2019 LIVE DIAZ [employer] Ot 733.90 BONE CARTILAGE DIS NOS 01/11/2019 LIVE DIAZ [employer] Ot 722.0 CERVICAL DISC DISPLACMNT 01/11/2019 LIVE DIAZ [employer] Ot 793.7 NOSP (ABN) FINDINGS ON RADIOLOGICAL OT 01/11/2019 TAE ARBOLEDA APRN Ot V16.0 FAMILY HX-GI MALIGNANCY 01/11/2019 TAE ARBOLEDA APRN Ot V65.42 COUNSELING ON SUBSTANCE USE AND ABUSE 01/11/2019 TAE ARBOLEDA APRN Ot V72.31 ROUTINE GYNECOLOGICAL EXAMINATION 01/11/2019 TAE ARBOLEDA APRN Ot V76.12 OTH SCREEN MAMMO-MALIGN NEOPLASM OF ASHLEE 01/11/2019 TAE ARBOLEDA APRN Ot V76.12 OTH SCREEN MAMMO-MALIGN NEOPLASM OF ASHLEE 01/11/2019 KORTNEY DOYLE DO Ot M54.16 RADICULOPATHY, LUMBAR REGION 01/11/2019 SOHAIL MROALES MD Ot F32.9 MAJOR DEPRESSIVE DISORDER, SINGLE EPISOD 01/11/2019 SOHAIL MORALES MD Ot M54.16 RADICULOPATHY, LUMBAR REGION 01/11/2019 SOHAIL MORALES MD Ot M54.5 LOW BACK PAIN 01/11/2019 SOHAIL MORALES MD Ot Z79.51 BARREL HANDLER (CURRENT) USE OF INHALED STERO 01/11/2019 SOHAIL MORALES MD Ot Z79.52 SNF (CURRENT) USE OF SYSTEMIC STER 01/11/2019 SOHAIL MORALES MD Ot Z80.0 FAMILY HISTORY OF MALIGNANT NEOPLASM OF 01/11/2019 SOHAIL MORALES MD Ot Z82.49 FAMILY HX OF ISCHEM HEART DIS AND OTH DI 01/11/2019 SOHAIL MORALES MD Ot Z87.01 PERSONAL HISTORY OF PNEUMONIA (RECURRENT 01/14/2019 SOHAIL MORALES MD Ot F32.9 MAJOR DEPRESSIVE DISORDER, SINGLE EPISOD 01/14/2019 SOHAIL MORALES MD Ot M54.16 RADICULOPATHY, LUMBAR REGION 01/14/2019 SOHAIL MORALES MD Ot M54.5 LOW BACK PAIN 01/14/2019 SOHAIL MORALES MD Ot Z79.51 BARREL HANDLER (CURRENT) USE OF INHALED STERO 01/14/2019 SOHAIL MORALES MD Ot Z79.52 BARREL HANDLER (CURRENT) USE OF SYSTEMIC STER 01/14/2019 SOHIAL MORALES MD Ot Z80.0 FAMILY HISTORY OF MALIGNANT NEOPLASM OF 01/14/2019 SOHAIL MORALES MD Ot Z82.49 FAMILY HX OF ISCHEM HEART DIS AND OTH DI 01/14/2019 SOHAIL MORALES MD Ot Z87.01 PERSONAL HISTORY OF PNEUMONIA (RECURRENT 02/06/2019 LIVE DIAZP Ot 724.4 LUMBOSACRAL NEURITIS NOS 02/06/2019 LIVE DIAZP Ot 719.45 JOINT PAIN-PELVIS 02/06/2019 LIVE DIAZP Ot 724.4 LUMBOSACRAL NEURITIS NOS 02/06/2019 LIVE DIAZ Ot 733.90 BONE CARTILAGE DIS NOS 02/06/2019 LIVE DIAZP Ot 722.0 CERVICAL DISC DISPLACMNT 02/06/2019 LIVE DIAZP Ot 793.7 NOSP (ABN) FINDINGS ON RADIOLOGICAL OT 02/06/2019 TAE [employer] SUPERINTENDENT Ot V16.0 FAMILY HX-GI MALIGNANCY 02/06/2019 TAE [employer] SUPERINTENDENT Ot V65.42 COUNSELING ON SUBSTANCE USE AND ABUSE 02/06/2019 TAE [employer] SUPERINTENDENT Ot V72.31 ROUTINE GYNECOLOGICAL EXAMINATION 02/06/2019 TAE [employer] SUPERINTENDENT Ot V76.12 OTH SCREEN MAMMO-MALIGN NEOPLASM OF ASHLEE 02/06/2019 TAE [employer] SUPERINTENDENT Ot V76.12 OTH SCREEN MAMMO-MALIGN NEOPLASM OF ASHLEE 02/06/2019 KORTNEY DOYLE DO Ot M54.16 RADICULOPATHY, LUMBAR REGION Procedures Code Description [place] [address] VITAMIN D 25-HYDROXY (D2,D3 , TOTAL) 11/01/2012 62429 SLEEP STUDY 11/29/2012 08598 OXIMETRY 04/14/2013 94111 THERAPUTIC INJ SQ/IM 06/27/2013 J0696 ROCEPHIN INJ 06/27/2013 86.04 OTHER SKIN SUBQ I D 06/29/2013 01164 THERAPUTIC INJ SQ/IM 10/10/2013 J1885 TORADOL INJ 10/10/2013 48560 XRAY CHEST 2 VIEW 10/10/2013 67938 XRAY CERVICAL SPINE, 2 OR 3 VIEWS 10/10/2013 J1885 TORADOL INJ 10/23/2013 73392 THERAPUTIC INJ SQ/IM 10/23/2013 58480 MRI SPINE (THORACIC) W/O CONTRAST 10/27/2013 77280 THERAPUTIC INJ SQ/IM 11/03/2013 J2930 SOLUMEDROL INJ 11/03/2013 01088 THERAPUTIC INJ SQ/IM 12/12/2013 J2930 SOLUMEDROL INJ 12/12/2013 02736 THERAPUTIC INJ SQ/IM 12/16/2013 J1040 DEPO MEDROL 80 MG INJ 12/16/2013 J3301 KENALOG INJ, PER 10 MG 12/29/2013 88408 THERAPUTIC INJ SQ/IM 12/29/2013 09475 MRI SPINE (LUMBAR) W/O CONTRAST 02/02/2014 27726 XRAY HIP LEFT UNILATERAL MIN 2 VIEWS 02/02/2014 19950 MRI SPINE (CERVICAL) W/O CONTRAST 03/21/2014 Neurologi Anca Nava 03/21/2014 83331 THERAPUTIC INJ SQ/IM 03/21/2014 J1040 DEPO MEDROL 80 MG INJ 03/21/2014 99378 THERAPUTIC INJ SQ/IM 03/25/2014 J3301 KENALOG INJ, PER 10 MG 03/25/2014 82500 WART DESTRUCT 1-14 (CRYO) 05/04/2014 76733 MAMMOGRAM DX, RIGHT 05/05/2014 42641 MAMMOGRAM, SCREENING 05/05/2014 Results Test Result Range Bacterial blood culture - 07/09/18 14:32 Bacterial blood culture NG NRG Complete blood count (CBC) with automated white blood cell (WBC) differential - 07/09/18 14:32 Blood leukocytes automated count (number/volume) 9.5 10*3/uL 4.3-11.0 Blood erythrocytes automated count (number/volume) 4.34 10*6/uL 4.35-5.85 Venous blood hemoglobin measurement (mass/volume) 13.0 g/dL 11.5-16.0 Blood hematocrit (volume fraction) 40 % 35-52 Automated erythrocyte mean corpuscular volume 91 [foz_us] 80-99 Automated erythrocyte mean corpuscular hemoglobin (mass per erythrocyte) 30 pg 25-34 Automated erythrocyte mean corpuscular hemoglobin concentration measurement ( mass/volume) 33 g/dL 32-36 Automated erythrocyte distribution width ratio 14.6 % 10.0-14.5 Automated blood platelet count (count/volume) 335 10*3/uL 130-400 Automated blood platelet mean volume measurement 9.9 [foz_us] 7.4-10.4 Automated blood neutrophils/100 leukocytes 71 % 42-75 Automated blood lymphocytes/100 leukocytes 23 % 12-44 Blood monocytes/100 leukocytes 5 % 0-12 Automated blood eosinophils/100 leukocytes 1 % 0-10 Automated blood basophils/100 leukocytes 0 % 0-10 Blood neutrophils automated count (number/volume) 6.7 10*3 1.8-7.8 Blood lymphocytes automated count (number/volume) 2.2 10*3 1.0-4.0 Blood monocytes automated count (number/volume) 0.5 10*3 0.0-1.0 Automated eosinophil count 0.1 10*3/uL 0.0-0.3 Automated blood basophil count (count/volume) 0.0 10*3/uL 0.0-0.1 Blood lactic acid measurement (moles/volume) - 07/09/18 14:32 Blood lactic acid measurement (moles/volume) 2.22 mmol/L 0.50-2.00 Comprehensive metabolic panel - 07/09/18 14:32 Serum or plasma sodium measurement (moles/volume) 141 mmol/L 135-145 Serum or plasma potassium measurement (moles/volume) 2.9 mmol/L 3.6-5.0 Serum or plasma chloride measurement (moles/volume) 103 mmol/L 98-107 Carbon dioxide 25 mmol/L 21-32 Serum or plasma anion gap determination (moles/volume) 13 mmol/L 5-14 Serum or plasma urea nitrogen measurement (mass/volume) 8 mg/dL 7-18 Serum or plasma creatinine measurement (mass/volume) 0.64 mg/dL 0.60-1.30 Serum or plasma urea nitrogen/creatinine mass ratio 13 NRG Serum or plasma creatinine measurement with calculation of estimated glomerular filtration rate > NRG Serum or plasma glucose measurement (mass/volume) 121 mg/dL 70-105 Serum or plasma calcium measurement (mass/volume) 9.4 mg/dL 8.5-10.1 Serum or plasma total bilirubin measurement (mass/volume) 0.3 mg/dL 0.1-1.0 Serum or plasma alkaline phosphatase measurement (enzymatic activity/volume) 64 U/L 40-136 Serum or plasma aspartate aminotransferase measurement (enzymatic activity/ volume) 21 U/L 5-34 Serum or plasma alanine aminotransferase measurement (enzymatic activity/volume ) 25 U/L 0-55 Serum or plasma protein measurement (mass/volume) 6.6 g/dL 6.4-8.2 Serum or plasma albumin measurement (mass/volume) 3.8 g/dL 3.2-4.5 CALCIUM CORRECTED 9.6 mg/dL 8.5-10.1 Bacterial blood culture - 07/09/18 14:40 Bacterial blood culture NG NRG Serum or plasma lactate measurement (moles/volume) - 07/09/18 17:15 Serum or plasma lactate measurement (moles/volume) 1.00 mmol/L 0.50-2.00 Complete urinalysis with reflex to culture - 07/09/18 22:10 Urine color determination BHUPINDER NRG Urine clarity determination SLIGHTLY CLOUDY NRG Urine pH measurement by test strip 6 5-9 Specific gravity of urine by test strip 1.025 1.016- 1.022 Urine protein assay by test strip, semi-quantitative 2+ NEGATIVE Urine glucose detection by automated test strip NEGATIVE NEGATIVE Erythrocytes detection in urine sediment by light microscopy 1+ NEGATIVE Urine ketones detection by automated test strip 2+ NEGATIVE Urine nitrite detection by test strip NEGATIVE NEGATIVE Urine total bilirubin detection by test strip 3+ NEGATIVE Urine urobilinogen measurement by automated test strip (mass/volume) 1 mg/dL NORMAL Urine leukocyte esterase detection by dipstick 1+ NEGATIVE Automated urine sediment erythrocyte count by microscopy (number/high power field) NONE NRG Automated urine sediment leukocyte count by microscopy (number/high power field ) [HPF] NRG Bacteria detection in urine sediment by light microscopy TRACE NRG Squamous epithelial cells detection in urine sediment by light microscopy 2-5 NRG Crystals detection in urine sediment by light microscopy NONE NRG Casts detection in urine sediment by light microscopy NONE NRG Mucus detection in urine sediment by light microscopy LARGE NRG Complete urinalysis with reflex to culture YES NRG Yeast detection in urine sediment by light microscopy MODERATE NRG Bacterial urine culture - 07/09/18 22:10 Bacterial urine culture [id number] NRG COLONY COUNT . NRG FTX;REPORTABLE 40,000 CFU/ML OF YEAST NRG Complete blood count (CBC) with automated white blood cell (WBC) differential - 07/11/18 06:04 Blood leukocytes automated count (number/volume) 11.6 10*3/uL 4.3-11.0 Blood erythrocytes automated count (number/volume) 4.07 10*6/uL 4.35-5.85 Venous blood hemoglobin measurement (mass/volume) 12.2 g/dL 11.5-16.0 Blood hematocrit (volume fraction) 38 % 35-52 Automated erythrocyte mean corpuscular volume 92 [foz_us] 80-99 Automated erythrocyte mean corpuscular hemoglobin (mass per erythrocyte) 30 pg 25-34 Automated erythrocyte mean corpuscular hemoglobin concentration measurement ( mass/volume) 32 g/dL 32-36 Automated erythrocyte distribution width ratio 14.8 % 10.0-14.5 Automated blood platelet count (count/volume) 377 10*3/uL 130-400 Automated blood platelet mean volume measurement 9.9 [foz_us] 7.4-10.4 Automated blood neutrophils/100 leukocytes 84 % 42-75 Automated blood lymphocytes/100 leukocytes 12 % 12-44 Blood monocytes/100 leukocytes 3 % 0-12 Automated blood eosinophils/100 leukocytes 0 % 0-10 Automated blood basophils/100 leukocytes 0 % 0-10 Blood neutrophils automated count (number/volume) 9.8 10*3 1.8-7.8 Blood lymphocytes automated count (number/volume) 1.4 10*3 1.0-4.0 Blood monocytes automated count (number/volume) 0.4 10*3 0.0-1.0 Automated eosinophil count 0.0 10*3/uL 0.0-0.3 Automated blood basophil count (count/volume) 0.0 10*3/uL 0.0-0.1 Comprehensive metabolic panel - 07/11/18 06:04 Serum or plasma sodium measurement (moles/volume) 140 mmol/L 135-145 Serum or plasma potassium measurement (moles/volume) 3.5 mmol/L 3.6-5.0 Serum or plasma chloride measurement (moles/volume) 104 mmol/L 98-107 Carbon dioxide 21 mmol/L 21-32 Serum or plasma anion gap determination (moles/volume) 15 mmol/L 5-14 Serum or plasma urea nitrogen measurement (mass/volume) 9 mg/dL 7-18 Serum or plasma creatinine measurement (mass/volume) 0.65 mg/dL 0.60-1.30 Serum or plasma urea nitrogen/creatinine mass ratio 14 NRG Serum or plasma creatinine measurement with calculation of estimated glomerular filtration rate > NRG Serum or plasma glucose measurement (mass/volume) 148 mg/dL 70-105 Serum or plasma calcium measurement (mass/volume) 9.6 mg/dL 8.5-10.1 Serum or plasma total bilirubin measurement (mass/volume) 0.2 mg/dL 0.1-1.0 Serum or plasma alkaline phosphatase measurement (enzymatic activity/volume) 57 U/L 40-136 Serum or plasma aspartate aminotransferase measurement (enzymatic activity/ volume) 15 U/L 5-34 Serum or plasma alanine aminotransferase measurement (enzymatic activity/volume ) 27 U/L 0-55 Serum or plasma protein measurement (mass/volume) 6.2 g/dL 6.4-8.2 Serum or plasma albumin measurement (mass/volume) 3.7 g/dL 3.2-4.5 CALCIUM CORRECTED 9.8 mg/dL 8.5-10.1 Encounters ACCT No. Visit Date/Time Discharge Status Pt. Type Provider Facility Loc./Unit Complaint [id number] 11/05/2018 09:53:21 11/05/2018 23:59:59 CLS Outpatient KORTNEY REYNOSO [id number] 11/05/2018 08:20:54 11/05/2018 23:59:59 CLS Outpatient KORTNEY REYNOSO [id number] 08/31/2014 09:53:00 08/31/2014 23:59:59 CLS Outpatient REZA ARIK KELLEY Watkins [id number] 07/06/2014 00:00:00 07/06/2014 23:59:59 CLS Outpatient CHIO COBB DDS [id number] 06/12/2014 11:17:00 06/12/2014 23:59:59 CLS Outpatient CHIO COBB DDS [id number] 05/04/2014 16:57:00 05/04/2014 23:59:59 CLS Outpatient PHILLY KENNY DO [id number] 05/04/2014 16:57:00 05/04/2014 23:59:59 CLS Outpatient PHILLY KENNY DO [id number] 04/30/2014 10:28:00 04/30/2014 23:59:59 CLS Outpatient TAE ARBOLEDA APRN [id number] 03/25/2014 16:09:00 03/25/2014 23:59:59 CLS Outpatient PHILLY KENNY DO [id number] 03/21/2014 09:35:00 03/21/2014 23:59:59 CLS Outpatient LIVE DIAZ APRN [id number] 03/21/2014 09:35:00 03/21/2014 23:59:59 CLS Outpatient LIVE DIAZ APRN [id number] 02/02/2014 08:58:00 02/02/2014 23:59:59 CLS Outpatient LIVE DIAZ APRN [id number] 12/16/2013 16:30:00 12/16/2013 23:59:59 CLS Outpatient LIVE DIAZ APRN [id number] 12/16/2013 16:30:00 12/16/2013 23:59:59 CLS Outpatient LIVE DIAZ APRN [id number] 12/12/2013 16:04:00 12/12/2013 23:59:59 CLS Outpatient LIVE DIAZ APRN [id number] 11/03/2013 15:38:00 11/03/2013 23:59:59 CLS Outpatient KENNY MARKA Alicia [id number] 10/27/2013 11:41:00 10/27/2013 23:59:59 CLS Outpatient LIVE DIAZ APRN [id number] 10/23/2013 16:44:00 10/23/2013 23:59:59 CLS Outpatient LIVE DIAZ APRN [id number] 10/10/2013 10:42:00 10/10/2013 23:59:59 CLS Outpatient LIVE DIAZ APRN [id number] 10/10/2013 10:42:00 10/10/2013 23:59:59 CLS Outpatient LIVE DIAZ APRN [id number] 08/21/2013 10:23:00 08/21/2013 23:59:59 CLS Outpatient MARIAH MALHOTRA, MILO Ponce [id number] 08/09/2013 12:28:00 08/09/2013 23:59:59 CLS Outpatient LIVE DIAZ APRN [id number] 06/27/2013 08:22:00 06/27/2013 23:59:59 CLS Outpatient LIVE DIAZ APRN [id number] 12/16/2012 13:36:00 12/16/2012 23:59:59 CLS Outpatient NAHEED MALHOTRA, ADÁN [id number] 11/29/2012 08:56:00 11/29/2012 23:59:59 CLS Outpatient [id number] 11/01/2012 09:27:00 11/01/2012 23:59:59 CLS Outpatient [id number] 07/24/2012 14:01:00 07/24/2012 23:59:59 CLS Outpatient LIVE DIAZ APRN [id number] 07/14/2013 14:17:00 Document Registration [id number] 06/27/2013 08:22:00 Document Registration [id number] 04/09/2013 09:13:00 Document Registration [id number] 04/09/2013 09:13:00 Document Registration [id number] 03/14/2013 12:36:00 Document Registration [id number] 02/20/2013 13:13:00 Document Registration [id number] 02/06/2019 18:49:00 02/06/2019 19:35:00 DIS Emergency LIVE DILL DO [facility] ER FS NERVE PAIN IN LEFT LEG AND BACK [id number] 01/11/2019 09:18:00 01/11/2019 09:50:00 DIS Emergency SOHAIL MORALES MD [facility] ER FS LT LEG PAIN [id number] 01/11/2019 09:13:00 01/11/2019 09:13:00 CAN Preadmit SOHAIL MORALES MD [facility] ER FS LT LEG PAIN [id number] 07/09/2018 12:20:00 07/09/2018 23:59:59 CLS Inpatient RINKU MAURICIO MD [facility] 4TH HYPOXIA, FAILURE OF OUTPT TREATMENT OF BRONCHITIS [id number] 04/11/2018 13:10:00 04/11/2018 23:59:59 CLS Outpatient KORTNEY DOYLE DO [facility] CARD LUMBAR RADICULOPATHY [id number] 01/17/2018 12:48:00 01/17/2018 13:32:00 DIS Outpatient KORTNEY DOYLE DO [facility] CARD LUMBAR RADICULOPATHY [id number] 05/26/2014 12:44:00 05/26/2014 23:59:59 CLS Outpatient TAE ARBOLEDA [employer] [facility] RAD RT BREAST NODULE [id number] 05/07/2014 15:29:00 05/07/2014 23:59:59 CLS Outpatient TAE ARBOLEDA [employer] [facility] RAD SCREENING [id number] 03/30/2014 12:59:00 03/30/2014 23:59:59 CLS Outpatient LIVE DIAZ [facility] RAD CERVICALGIA [id number] 03/26/2014 13:11:00 03/26/2014 14:40:00 DIS Emergency MIRELA HUANG [employer] [facility] ER NECK PAIN [id number] 02/10/2014 13:03:00 02/10/2014 23:59:59 CLS Outpatient LIVE DIAZ [facility] RAD LUMBAR RADICULOPATHY [id number] 10/31/2013 14:53:00 10/31/2013 23:59:59 CLS Outpatient JOE LIVE Ankur COLÓN [facility] RAD THORACIC RADICULOPATHY [id number] 07/14/2013 07:59:00 10/01/2013 00:01:00 DIS Outpatient LEANDRA AMATO MD [facility] SURG RCR CELLULITIS [id number] 06/29/2013 10:15:00 07/02/2013 19:15:00 DIS Inpatient LEANDRA AMATO MD [facility] SURGICAL ABSCESS L FACIAL [id number] 03/12/2013 17:56:00 03/12/2013 23:59:59 CLS Outpatient [id number] 03/01/2013 22:30:00 03/02/2013 17:10:00 DIS Outpatient MILO LEMUS MD [facility] CATH CP [id number] 03/01/2013 19:18:00 03/01/2013 23:59:59 CLS Outpatient [id number] 01/14/2018 19:26:00 Document Registration
== END 2019-02-06 19:35 | disposition home or self-care (01) ==
LOC: EDUNIT# 18:47 → ER FS 18:49
DX: M54.42 Lumbago with sciatica, left side (principal); G89.29 Other chronic pain; F32.9 Major depressive disorder, single episode, unspecified; Z82.49 Family history of ischemic heart disease and other diseases of the circulatory system; Z80.0 Family history of malignant neoplasm of digestive organs; Z79.52 Long term (current) use of systemic steroids; Z87.01 Personal history of pneumonia (recurrent); Z98.890 Other specified postprocedural states
CPT/HCPCS: 99284

== ENCOUNTER 2019-03-04 10:24 | Emergency (ER) | payer MEDICARE, MEDICAID ==
[~2019-03-04] VITALS: Ht 165.1 cm; Wt 112.5 kg
[~2019-03-04 10:24] MED LIST changes: +HYDR-3875 PO
--- OUTSIDE RECORDS SUMMARY | 2019-03-04 10:34 | XMS REPORT ---
Author Author Migration, Doctor Organization [facility] Address Unknown Phone Unavailable Care Team Providers Care Lead Electrical Engineer Name Role Phone Migration, Doctor Unavailable Unavailable PROBLEMS Type Condition ICD9-CM Code [id number] Code Onset Dates Condition Status SNOMED Code Problem Unspecified breast screening V76.10 Active 162977296 Problem Dietary surveillance and counseling V65.3 Active 948823358 Problem Counseling on substance use and abuse V65.42 Active 079940623 Problem Cervicalgia 723.1 Active 38524602 Problem Pain in soft tissues of limb 729.5 Active 07038987 Problem Sprain and strain of unspecified site of knee and leg 844.9 Active 597938832 Problem Neck sprain and strain 847.0 Active 100178624 Problem Enlargement of lymph nodes 785.6 Active 60321888 Problem Chest pain, unspecified 786.50 Active 55166440 Problem Rash and other nonspecific skin eruption 782.1 Active 269730266 Problem Abnormal weight gain 783.1 Active 367715160 Problem Unspecified sleep apnea 780.57 Active 62475466 Problem Other malaise and fatigue 780.79 Active 107003261 Problem Pain in joint, lower leg 719.46 Active 441019114 Problem Pain in joint, pelvic region and thigh 719.45 Active 065852091 Problem Pain in joint, shoulder region 719.41 Active 058039783 Problem Obesity, unspecified 278.00 Active 653687163 Problem Hormone replacement therapy (postmenopausal) V07.4 Active 206265557 Problem Other and unspecified hyperlipidemia 272.4 Active 91880097 Problem Family history of malignant neoplasm of gastrointestinal tract V16.0 Active 743236623 Problem Falling from high place on residential premises, undetermined whether accidentally or purposely inflicted E987.0 Active Problem Unspecified disorder of skin and subcutaneous tissue 709.9 Active 28117251 Problem Cellulitis and abscess of unspecified site 682.9 Active 332714570 Problem Thoracic or lumbosacral neuritis or radiculitis, unspecified 724.4 Active 648115562 Problem Acute bronchitis 466.0 Active 34335835 ALLERGIES No Information ENCOUNTERS Encounter Location Date [facility] [address] [place] [address] [place] [address] Jan, [facility] [address] [place] [address] [place] [address] Jan, [facility] [address] [place] [address] [place] [address] Dec, [facility] [address] [place] [address], [place] [address] Dec, [facility] [address] [place] [address] [place] [address] Dec, [facility] [address] [place] [address], [place] [address] Nov, [facility] [address] [place] [address], [place] [address] Nov, [facility] [address] [id number] [id number] Sep, Dental examination Z01.20 [facility] [address] [id number] [id number] 10 Jun, 2015 Dental examination V72.2 [facility] [address] [address] Jan, [facility] [address] [address] Jan, [facility] [address] [address] Oct, [facility] [address] [address] Oct, [facility] [address] [address] Jul, [facility] [address] [address] Jul, [facility] [address] [address] Jun, [facility] [place] [facility] [address] [id number] [place] [address] Jun, [facility] [place] [facility] [address] [id number] [place] [address] May, [facility] [place] [facility] [address] [id number] [place] [address] May, [facility] [place] [facility] [address] [id number] [place] [address] 89[address] May, [facility] [place] [facility] [address] [id number] [place] [address] 34[address] May, [facility] [place] [facility] [address] [id number] [place] [address]24 May, [facility] [place] [facility] [address] [id number] [place] [address] 8838 May, [facility] [place] [facility] [address] [id number] [place] [address] May, [facility] [place] [facility] [address] [id number] [place] [address]759 May, [facility] [place] [facility] [address] [id number] [place] [address] 6263 Apr, [facility] [place] [facility] [address] [id number] [place] [address]- [address] Apr, [facility] [place] [facility] [address] [id number] [place] [address] Apr, [facility] [place] [facility] [address] [id number] [place] [address]- [address] Apr, [facility] [place] [facility] [address] [id number] [place] [address]- [address]44 Apr, [facility] [place] [facility] [address] [id number] [place] [address]- [address]114 Apr, [facility] [place] [facility] [address] [id number] [place] [address] 8827 Apr, 2013 [facility] [place] [facility] [address] [id number] [place] [address] 98[address] Apr, 2013 [facility] [place] [facility] [address] [id number] [place] [address]- 1691 Apr, 2013 [facility] [place] [facility] [address] [id number] [place] [address]- 1429 Apr, 2013 [facility] [place] [facility] [address] [id number] [place] [address]247 Apr, 2013 [facility] [place] [facility] [address] [id number] [place] [address]- [address]95 Apr, [facility] [place] [facility] [address] [id number] [place] [address] 3099 Apr, 2013 [facility] [place] [facility] [address] [id number] [place] [address] 5393 Apr, [facility] [place] [facility] [address] [id number] [place] [address] 4244 Apr, [facility] [place] [facility] [address] [id number] [place] [address] 4507 Apr, [facility] [place] [facility] [address] [id number] [place] [address] 1211 Apr, [facility] [place] [facility] [address] [id number] [place] [address] 3184 Mar, [facility] [place] [facility] [address] [id number] [place] [address]- [address]242 Mar, [facility] [place] [facility] [address] [id number] [place] [address]116 Mar, [facility] [place] [facility] [address] [id number] [place] [address]- 3965 Mar, [facility] [place] [facility] [address] [id number] [place] [address]- 8329 Mar, [facility] [place] [facility] [address] [id number] [place] [address]- 6617 Mar, [facility] [place] [facility] [address] [id number] [place] [address] 2700 Mar, [facility] [place] [facility] [address] [id number] [place] [address] 8[address] Mar, [facility] [place] [facility] [address] [id number] [place] [address]- 1148 Mar, [facility] [place] [facility] [address] [id number] [place] [address] 4099 Mar, [facility] [place] [facility] [address] [id number] [place] [address]- 6710 Mar, [facility] [place] [facility] [address] [id number] [place] [address]- 1172 Mar, [facility] [place] [facility] [address] [id number] [place] [address]- [address] February, [facility] [place] [facility] [address] [id number] [place] [address]- 3470 February, [facility] [place] [facility] [address] [id number] [place] [address]- [address] February, [facility] [place] [facility] [address] [id number] [place] [address] February, [facility] [place] [facility] [address] [id number] [place] [address]- 0107 February, [facility] [place] [facility] [address] [id number] [place] [address]- 0746 February, [facility] [place] [facility] [address] [id number] [place] [address]- 3788 February, [facility] [place] [facility] [address] [id number] [place] [address]- 9346 February, [facility] [place] [facility] [address] [id number] [place] [address]- 8281 February, [facility] [place] [facility] [address] [id number] [place] [address]- 2283 February, [facility] [place] [facility] [address] [id number] [place] [address]- 3536 February, [facility] [place] [facility] [address] [id number] [place] [address]- 7868 February, [facility] [place] [facility] [address] [id number] [place] [address]- 9128 Jan, [facility] [place] [facility] [address] [id number] [place] [address]- 8080 Jan, [facility] [place] [facility] [address] [id number] [place] [address]- 8473 Jan, [facility] [place] [facility] [address] [id number] [place] [address]- 6068 Jan, [facility] [place] [facility] [address] [id number] [place] [address]- 4351 Jan, [facility] [place] [facility] [address] [id number] [place] [address]- 1782 Jan, [facility] [place] [facility] [address] [id number] [place] [address]- 1285 Dec, [facility] [place] [facility] [address] [id number] [place] [address]- 2240 Dec, [facility] [place] [facility] [address] [id number] [address]375 Dec, [facility] [place] [facility] [address] [id number] [place] [address]- 7934 Dec, [facility] [place] [facility] [address] [id number] [place] [address]- 2203 Dec, [facility] [place] [facility] [address] [id number] [place] [address] Dec, [facility] [place] [facility] [address] [id number] [place] [address]- 0340 Nov, [facility] [place] [facility] [address] [id number] [place] [address]- 5719 18 Nov, 2013 [facility] [place] [facility] [address] [id number] [place] [address]- 1241 Nov, [facility] [place] [facility] [address] [id number] [place] [address]- 1636 Nov, [facility] [place] [facility] [address] [id number] [place] [address]- 6513 Oct, [facility] [place] [facility] [address] [id number] [place] [address]- 1488 Oct, [facility] [place] [facility] [address] [id number] [place] [address]- 3424 Oct, [facility] [place] [facility] [address] [id number] [place] [address]- 2261 Oct, [facility] [place] [facility] [address] [id number] [place] [address]- 5977 Oct, [facility] [place] [facility] [address] [id number] [place] [address]- 3501 Oct, [facility] [place] [facility] [address] [id number] [place] [address]- 4855 Oct, [facility] [place] [facility] [address] [id number] [place] [address]- 7872 Oct, [facility] [place] [facility] [address] [id number] [place] [address]- 1695 Oct, [facility] [place] [facility] [address] [id number] [place] [address]- 2368 Sep, [facility] [place] [facility] [address] [id number] [place] [address]- 4406 Sep, [facility] [place] [facility] [address] [id number] [place] [address]- 2518 Sep, [facility] [place] [facility] [address] [id number] [place] [address]- 1605 26 Sep, 2013 [facility] [place] [facility] [address] [id number] [place] [address]- 6554 16 Sep, 2013 [facility] [place] [facility] [address] [id number] [place] [address]- 1983 13 Sep, 2013 [facility] [place] [facility] [address] [id number] [place] [address]- 5135 Sep, [facility] [place] [facility] [address] [id number] [place] [address]- 0557 Aug, [facility] [place] [facility] [address] [id number] [place] [address]- 9975 Aug, [facility] [place] [facility] [address] [id number] [place] [address]- 6489 28 Jul, 2013 [facility] [place] [facility] [address] [id number] [place] [address]- 8037 28 Jul, 2013 [facility] [place] [facility] [address] [id number] [place] [address]- 7936 14 Jul, 2013 [facility] [place] [facility] [address] [id number] [place] [address]- 0618 14 Jul, 2013 [facility] [place] [facility] [address] [id number] [place] [address]- 7941 12 Jul, 2013 [facility] [place] [facility] [address] [id number] [place] [address]- 2885 12 Jul, 2013 [facility] [place] [facility] [address] [id number] [place] [address]- 0184 25 Jun, 2013 [facility] [place] [facility] [address] [id number] [place] [address]- 0317 16 Jun, 2013 [facility] [place] [facility] [address] [id number] [place] [address]- 4866 13 Jun, 2013 [facility] [place] [facility] [address] [id number] [place] [address]- 3256 May, [facility] [address] [id number] [place] [address]- 0553 May, [facility] [place] [facility] [address] [id number] [place] [address]- 3220 Apr, [facility] [place] [facility] [address] [id number] [place] [address]- 0910 Apr, [facility] [place] [facility] [address] [id number] [place] [address]- 3756 Apr, [facility] [place] [facility] [address] [id number] [place] [address]- 8781 Mar, [facility] [place] [facility] [address] [id number] [place] [address]- 4282 Mar, [facility] [place] [facility] [address] [id number] [place] [address]- 0661 February, [facility] [place] [facility] [address] [id number] [place] [address]- 8387 February, [facility] [place] [facility] [address] [id number] [place] [address]- 6714 Jan, [facility] [place] [facility] [address] [id number] [place] [address]- 3212 Jan, [facility] [place] [facility] [address] [id number] [place] [address]- 4749 Dec, [facility] [place] [facility] [address] [id number] [place] [address]- 7732 Nov, [facility] [place] [facility] [address] [id number] [place] [address]- 9379 Nov, [facility] [place] [facility] [address] [id number] [place] [address]- 2546 Nov, [facility] [place] [facility] [address] [id number] [place] [address]- 2546 Oct, [facility] [place] [facility] [address] [id number] [place] [address]- 3081 08 Aug, 2012 [facility] [place] [facility] [address] [id number] [place] [address]- 4387 Aug, [facility] [place] [facility] [address] [id number] [place] [address]- 3276 Aug, [facility] [place] [facility] [address] [id number] [place] [address]- 4814 Aug, [facility] [place] [facility] [address] [id number] [place] [address]- 3897 26 Jun, 2012 [facility] [place] [facility] [address] [id number] [place] [address]- 9481 10 Jun, 2012 [facility] [place] [facility] [address] [id number] [place] [address]- 7629 Jun, [facility] [place] [facility] [address] [id number] [place] [address]- 2917 Jun, [facility] [place] [facility] [address] [id number] [place] [address]- 0389 05 Jun, 2012 [facility] [place] [facility] [address] [id number] [place] [address]- 9132 May, [facility] [place] [facility] [address] [id number] [place] [address]- 6284 May, [facility] [place] [facility] [address] [id number] [place] [address]- 5575 May, [facility] [place] [facility] [address] [id number] [place] [address]- 3755 May, [facility] [place] [facility] [address] [id number] [place] [address]- 9767 Mar, [facility] [place] [facility] [address] [id number] [place] [address]- 4091 Mar, [facility] [place] [facility] [address] [id number] [place] [address]- 0274 February, [facility] [address] [id number] [place] [address]- 0734 February, [facility] [place] [facility] [address] [id number] [place] [address]- 3572 Jan, [facility] [place] [facility] [address] [id number] [place] [address]- 1297 17 Jan, 2012 [facility] [place] [facility] [address] [id number] [place] [address]- 8030 13 Jan, 2012 [facility] [address] [id number] [place] [address]- 5415 Jan, [facility] [place] [facility] [address] [id number] [place] [address]- 7530 Jan, [facility] [place] [facility] [address] [id number] [place] [address]- 7574 20 Nov, 2011 [facility] [place] [facility] [address] [id number] [place] [address]- 7203 15 Nov, 2011 [facility] [place] [facility] [address] [id number] [place] [address]- 7823 10 Nov, 2011 [facility] [place] [facility] [address] [id number] [place] [address]- 6164 Oct, [facility] [place] [facility] [address] [id number] [place] [address]- 5841 14 Sep, 2011 [facility] [place] [facility] [address] [id number] [place] [address]- 5410 14 Sep, 2011 [facility] [place] [facility] [address] [id number] [place] [address]- 8067 Sep, [facility] [place] [facility] [address] [id number] [place] [address]- 0838 22 Aug, 2011 [facility] [place] [facility] [address] [id number] [place] [address]- 0970 Aug, [facility] [place] [facility] [address] [id number] [address]- 0086 11 Jul, 2011 [facility] [address] [address]- 0633 11 Jul, 2011 [facility] [address] [address]- 5791 18 Jun, 2010 [facility] [address] [address]- 0148 17 Nov, 2009 [facility] [address], [place] [address]- 0903 Aug, [facility] [address] [id number] [address]- 8392 Mar, [facility] [address] [id number] [address]- 0415 19 Nov, 2008 IMMUNIZATIONS No Known Immunizations SOCIAL HISTORY Never Assessed REASON FOR VISIT EMR-[facility] PLAN OF CARE VITAL SIGNS MEDICATIONS Unknown Medications RESULTS No Results PROCEDURES No Known procedures INSTRUCTIONS MEDICATIONS ADMINISTERED No Known Medications
--- OUTSIDE RECORDS SUMMARY | 2019-03-04 10:34 | XMS REPORT ---
Author Author Migration, Doctor Organization [facility] Address Unknown Phone Unavailable Care Team Providers Care Automobile Technician Name Role Phone Migration, Doctor Unavailable Unavailable PROBLEMS Type Condition ICD9-CM Code [id number] Code Onset Dates Condition Status SNOMED Code Problem Unspecified breast screening V76.10 Active 404357497 Problem Dietary surveillance and counseling V65.3 Active 478320667 Problem Counseling on substance use and abuse V65.42 Active 614373158 Problem Cervicalgia 723.1 Active 15892818 Problem Pain in soft tissues of limb 729.5 Active 55856703 Problem Sprain and strain of unspecified site of knee and leg 844.9 Active 444258300 Problem Neck sprain and strain 847.0 Active 244642509 Problem Enlargement of lymph nodes 785.6 Active 79088736 Problem Chest pain, unspecified 786.50 Active 91576896 Problem Rash and other nonspecific skin eruption 782.1 Active 764120385 Problem Abnormal weight gain 783.1 Active 886563157 Problem Unspecified sleep apnea 780.57 Active 30458216 Problem Other malaise and fatigue 780.79 Active 448760882 Problem Pain in joint, lower leg 719.46 Active 805165280 Problem Pain in joint, pelvic region and thigh 719.45 Active 029911964 Problem Pain in joint, shoulder region 719.41 Active 838535649 Problem Obesity, unspecified 278.00 Active 842579541 Problem Hormone replacement therapy (postmenopausal) V07.4 Active 377938764 Problem Other and unspecified hyperlipidemia 272.4 Active 59458840 Problem Family history of malignant neoplasm of gastrointestinal tract V16.0 Active 608219880 Problem Falling from high place on residential premises, undetermined whether accidentally or purposely inflicted E987.0 Active Problem Unspecified disorder of skin and subcutaneous tissue 709.9 Active 37676239 Problem Cellulitis and abscess of unspecified site 682.9 Active 703489494 Problem Thoracic or lumbosacral neuritis or radiculitis, unspecified 724.4 Active 737981469 Problem Acute bronchitis 466.0 Active 52194145 ALLERGIES No Information ENCOUNTERS Encounter Location Date Diagnosis [facility] [address] [place] [address] [place] [address] Jan, [facility] [address] [place] [address] [place] [address] Jan, [facility] [address] [place] [address] [place] [address] Dec, [facility] [address] [place] [address], [place] [address] Dec, [facility] [address] [place] [address] [place] [address] Dec, [facility] [address] [place] [address], [place] [address] Nov, [facility] [address] [place] [address], [place] [address] Nov, [facility] [address] [id number] [id number] Sep, Dental examination Z01.20 [facility] [address] [id number] [id number] 10 Jun, 2015 Dental examination V72.2 [facility] [address] [address] Jan, [facility] [address], [place] [address] Jan, [facility] [address], [place] [address] Oct, [facility] [address], [place] [address] Oct, [facility] [address], [place] [address] Jul, [facility] [address] [address] Jul, [facility] [address] [address] Jun, [facility] [place] [facility] [address] [id number] [place] [address] Jun, [facility] [place] [facility] [address] [id number] [place] [address] May, [facility] [place] [facility] [address] [id number] [place] [address] 8143 May, [facility] [place] [facility] [address] [id number] [place] [address]773 May, [facility] [place] [facility] [address] [id number] [place] [address] 7171 May, [facility] [place] [facility] [address] [id number] [place] [address] 8831 May, [facility] [place] [facility] [address] [id number] [place] [address] 6413 May, [facility] [place] [facility] [address] [id number] [place] [address] 8218 May, [facility] [place] [facility] [address] [id number] [place] [address] 0641 May, [facility] [place] [facility] [address] [id number] [place] [address] 0715 Apr, [facility] [place] [facility] [address] [id number] [place] [address] Apr, [facility] [place] [facility] [address] [id number] [place] [address] 6479 Apr, [facility] [place] [facility] [address] [id number] [place] [address] Apr, [facility] [place] [facility] [address] [id number] [place] [address] 2072 Apr, [facility] [place] [facility] [address] [id number] [place] [address] 8965 Apr, [facility] [place] [facility] [address] [id number] [place] [address] 8702 Apr, 2013 [facility] [place] [facility] [address] [id number] [place] [address]- 7472 Apr, 2013 [facility] [place] [facility] [address] [id number] [place] [address] 3191 Apr, 2013 [facility] [place] [facility] [address] [id number] [place] [address]- 5837 Apr, 2013 [facility] [place] [facility] [address] [id number] [place] [address] 9654 Apr, 2013 [facility] [place] [facility] [address] [id number] [place] [address] 0685 Apr, [facility] [place] [facility] [address] [id number] [place] [address] 7800 Apr, 2013 [facility] [place] [facility] [address] [id number] [place] [address]- 7297 Apr, [facility] [place] [facility] [address] [id number] [place] [address] 9192 Apr, [facility] [place] [facility] [address] [id number] [place] [address] 5705 Apr, [facility] [place] [facility] [address] [id number] [place] [address] 2199 Apr, [facility] [place] [facility] [address] [id number] [place] [address] 1337 Mar, [facility] [place] [facility] [address] [id number] [place] [address]- 1225 Mar, [facility] [place] [facility] [address] [id number] [place] [address] 3639 Mar, [facility] [place] [facility] [address] [id number] [place] [address] 9604 Mar, [facility] [place] [facility] [address] [id number] [place] [address] 0404 Mar, [facility] [place] [facility] [address] [id number] [place] [address]- 4872 Mar, [facility] [place] [facility] [address] [id number] [place] [address] 2008 Mar, [facility] [place] [facility] [address] [id number] [place] [address] 22[address] Mar, [facility] [place] [facility] [address] [id number] [place] [address] 1389 Mar, [facility] [place] [facility] [address] [id number] [place] [address]387 Mar, [facility] [place] [facility] [address] [id number] [place] [address]- 9581 Mar, [facility] [place] [facility] [address] [id number] [place] [address]- 6427 Mar, [facility] [place] [facility] [address] [id number] [place] [address]- [address] February, [facility] [place] [facility] [address] [id number] [place] [address] February, [facility] [place] [facility] [address] [id number] [place] [address]- 8385 February, [facility] [place] [facility] [address] [id number] [place] [address]- 7505 February, [facility] [place] [facility] [address] [id number] [place] [address]- 1423 February, [facility] [place] [facility] [address] [id number] [place] [address]- 3608 February, [facility] [place] [facility] [address] [id number] [place] [address]- 3562 February, [facility] [place] [facility] [address] [id number] [place] [address]- 5162 February, [facility] [place] [facility] [address] [id number] [place] [address]- 0268 February, [facility] [place] [facility] [address] [id number] [place] [address]- 6401 February, [facility] [place] [facility] [address] [id number] [place] [address]- 0840 February, [facility] [place] [facility] [address] [id number] [place] [address]- 6276 February, [facility] [place] [facility] [address] [id number] [place] [address] 7145 Jan, [facility] [place] [facility] [address] [id number] [place] [address]- 6690 Jan, [facility] [place] [facility] [address] [id number] [place] [address]- 6614 Jan, [facility] [place] [facility] [address] [id number] [place] [address]- 9616 Jan, [facility] [place] [facility] [address] [id number] [place] [address]- 7462 Jan, [facility] [place] [facility] [address] [id number] [place] [address]- 2799 Jan, [facility] [place] [facility] [address] [id number] [place] [address]- 4556 Dec, [facility] [place] [facility] [address] [id number] [place] [address]- 7852 Dec, [facility] [place] [facility] [address] [id number], [place] [address]483 Dec, [facility] [place] [facility] [address] [id number] [place] [address]- 3544 Dec, [facility] [place] [facility] [address] [id number] [place] [address]- 0745 Dec, [facility] [place] [facility] [address] [id number] [place] [address] Dec, [facility] [place] [facility] [address] [id number] [place] [address]- 4979 Nov, [facility] [place] [facility] [address] [id number] [place] [address]- 5056 18 Nov, 2013 [facility] [place] [facility] [address] [id number] [place] [address]- 6367 Nov, [facility] [place] [facility] [address] [id number] [place] [address]- 0906 Nov, [facility] [place] [facility] [address] [id number] [place] [address] 1986 Oct, [facility] [place] [facility] [address] [id number] [place] [address]- 4242 Oct, [facility] [place] [facility] [address] [id number] [place] [address]- 3030 Oct, [facility] [place] [facility] [address] [id number] [place] [address]- 9136 Oct, [facility] [place] [facility] [address] [id number] [place] [address]- 4187 Oct, [facility] [place] [facility] [address] [id number] [place] [address]- 7033 Oct, [facility] [place] [facility] [address] [id number] [place] [address]- 3125 Oct, [facility] [place] [facility] [address] [id number] [place] [address]- 9223 Oct, [facility] [place] [facility] [address] [id number] [place] [address]- 5949 Oct, [facility] [place] [facility] [address] [id number] [place] [address]- 1423 Sep, [facility] [place] [facility] [address] [id number] [place] [address]- 5312 Sep, [facility] [place] [facility] [address] [id number] [place] [address]- 8713 Sep, [facility] [place] [facility] [address] [id number] [place] [address]- 7378 26 Sep, 2013 [facility] [place] [facility] [address] [id number] [place] [address]- 3028 16 Sep, 2013 [facility] [place] [facility] [address] [id number] [place] [address]- 2547 13 Sep, 2013 [facility] [place] [facility] [address] [id number] [place] [address]- 1535 Sep, [facility] [place] [facility] [address] [id number] [place] [address]- 1590 Aug, [facility] [place] [facility] [address] [id number] [place] [address]- 9681 Aug, [facility] [place] [facility] [address] [id number] [place] [address]- 4843 28 Jul, 2013 [facility] [place] [facility] [address] [id number] [place] [address]- 0886 28 Jul, 2013 [facility] [place] [facility] [address] [id number] [place] [address]- 0745 14 Jul, 2013 [facility] [place] [facility] [address] [id number] [place] [address]- 6219 14 Jul, 2013 [facility] [place] [facility] [address] [id number] [place] [address]- 0867 12 Jul, 2013 [facility] [place] [facility] [address] [id number] [place] [address]- 5181 12 Jul, 2013 [facility] [place] [facility] [address] [id number] [place] [address]- 1406 25 Jun, 2013 [facility] [place] [facility] [address] [id number] [place] [address]- 9154 16 Jun, 2013 [facility] [place] [facility] [address] [id number] [place] [address]- 2618 13 Jun, 2013 [facility] [place] [facility] [address] [id number] [place] [address]- 1356 May, [facility] [address] [id number] [place] [address]- 1524 May, [facility] [place] [facility] [address] [id number] [place] [address]- 8845 Apr, [facility] [place] [facility] [address] [id number] [place] [address]- 8169 Apr, [facility] [place] [facility] [address] [id number] [place] [address]- 0697 Apr, [facility] [place] [facility] [address] [id number] [place] [address]- 8962 Mar, [facility] [place] [facility] [address] [id number] [place] [address]- 6760 Mar, [facility] [place] [facility] [address] [id number] [place] [address]- 8028 February, [facility] [place] [facility] [address] [id number] [place] [address]- 4759 February, [facility] [place] [facility] [address] [id number] [place] [address]- 0856 Jan, [facility] [place] [facility] [address] [id number] [place] [address]- 5165 Jan, [facility] [place] [facility] [address] [id number] [place] [address]- 6087 Dec, [facility] [place] [facility] [address] [id number] [place] [address]- 8832 Nov, [facility] [place] [facility] [address] [id number] [place] [address]- 7387 Nov, [facility] [place] [facility] [address] [id number] [place] [address]- 2546 Nov, [facility] [place] [facility] [address] [id number] [place] [address]- 2546 Oct, [facility] [place] [facility] [address] [id number] [place] [address]- 3984 08 Aug, 2012 [facility] [place] [facility] [address] [id number] [place] [address]- 5900 Aug, [facility] [place] [facility] [address] [id number] [place] [address]- 2180 Aug, [facility] [place] [facility] [address] [id number] [place] [address]- 1374 Aug, [facility] [place] [facility] [address] [id number] [place] [address]- 9413 26 Jun, 2012 [facility] [place] [facility] [address] [id number] [place] [address]- 4309 10 Jun, 2012 [facility] [place] [facility] [address] [id number] [place] [address]- 9027 Jun, [facility] [place] [facility] [address] [id number] [place] [address]- 0459 Jun, [facility] [place] [facility] [address] [id number] [place] [address]- 7135 05 Jun, 2012 [facility] [place] [facility] [address] [id number] [place] [address]- 7907 May, [facility] [place] [facility] [address] [id number] [place] [address]- 7619 May, [facility] [place] [facility] [address] [id number] [place] [address]- 1705 May, [facility] [place] [facility] [address] [id number] [place] [address]- 1450 May, [facility] [place] [facility] [address] [id number] [place] [address]- 5539 Mar, [facility] [place] [facility] [address] [id number] [place] [address]- 6879 Mar, [facility] [place] [facility] [address] [id number] [place] [address]- 1756 February, [facility] [address] [id number] [place] [address]- 8177 February, [facility] [place] [facility] [address] [id number] [place] [address]- 3366 Jan, [facility] [place] [facility] [address] [id number] [place] [address]- 3896 17 Jan, 2012 [facility] [place] [facility] [address] [id number] [place] [address]- 1807 13 Jan, 2012 [facility] [address] [id number] [place] [address]- 5813 Jan, [facility] [place] [facility] [address] [id number] [place] [address]- 4164 Jan, [facility] [place] [facility] [address] [id number] [place] [address]- 2018 20 Nov, 2011 [facility] [place] [facility] [address] [id number] [place] [address]- 4670 15 Nov, 2011 [facility] [place] [facility] [address] [id number] [place] [address]- 6793 10 Nov, 2011 [facility] [place] [facility] [address] [id number] [place] [address]- 2060 Oct, [facility] [place] [facility] [address] [id number] [place] [address]- 2648 14 Sep, 2011 [facility] [place] [facility] [address] [id number] [place] [address]- 2065 14 Sep, 2011 [facility] [place] [facility] [address] [id number] [place] [address]- 6580 Sep, [facility] [place] [facility] [address] [id number] [place] [address]- 1121 22 Aug, 2011 [facility] [place] [facility] [address] [id number] [place] [address]- 3408 Aug, [facility] [place] [facility] [id number] [address]- 6716 11 Jul, 2011 [facility] [address] [address] 4448 11 Jul, 2011 [facility] [address], [place] [address] 7533 18 Jun, 2010 [facility] [address], [place] [address] 5049 17 Nov, 2009 [facility] [address], [place] [address] 8882 Aug, [facility] [id number], [place] [address]- 0569 Mar, [facility] [id number], [place] [address]- 0482 19 Nov, 2008 IMMUNIZATIONS No Known Immunizations SOCIAL HISTORY Never Assessed REASON FOR VISIT EMR-[facility] [place] OF CARE VITAL SIGNS MEDICATIONS Unknown Medications RESULTS No Results PROCEDURES No Known procedures INSTRUCTIONS MEDICATIONS ADMINISTERED No Known Medications
--- OUTSIDE RECORDS SUMMARY | 2019-03-04 10:35 | XMS REPORT ---
Author Author Migration, Doctor Organization [facility] Address Unknown Phone Unavailable Care Team Providers Care Sustainability Project Coordinator Name Role Phone Migration, Doctor Unavailable Unavailable PROBLEMS Type Condition ICD9-CM Code [id number] Code Onset Dates Condition Status SNOMED Code Problem Unspecified breast screening V76.10 Active 774741705 Problem Dietary surveillance and counseling V65.3 Active 149643867 Problem Counseling on substance use and abuse V65.42 Active 056778552 Problem Cervicalgia 723.1 Active 43250947 Problem Pain in soft tissues of limb 729.5 Active 78060212 Problem Sprain and strain of unspecified site of knee and leg 844.9 Active 733544417 Problem Neck sprain and strain 847.0 Active 539923620 Problem Enlargement of lymph nodes 785.6 Active 64041178 Problem Chest pain, unspecified 786.50 Active 25005729 Problem Rash and other nonspecific skin eruption 782.1 Active 931417506 Problem Abnormal weight gain 783.1 Active 688799110 Problem Unspecified sleep apnea 780.57 Active 14450447 Problem Other malaise and fatigue 780.79 Active 226653383 Problem Pain in joint, lower leg 719.46 Active 723661861 Problem Pain in joint, pelvic region and thigh 719.45 Active 034544209 Problem Pain in joint, shoulder region 719.41 Active 254472802 Problem Obesity, unspecified 278.00 Active 689869585 Problem Hormone replacement therapy (postmenopausal) V07.4 Active 363846167 Problem Other and unspecified hyperlipidemia 272.4 Active 44639577 Problem Family history of malignant neoplasm of gastrointestinal tract V16.0 Active 547552834 Problem Falling from high place on residential premises, undetermined whether accidentally or purposely inflicted E987.0 Active Problem Unspecified disorder of skin and subcutaneous tissue 709.9 Active 90780625 Problem Cellulitis and abscess of unspecified site 682.9 Active 811347655 Problem Thoracic or lumbosacral neuritis or radiculitis, unspecified 724.4 Active 930931566 Problem Acute bronchitis 466.0 Active 92974746 ALLERGIES No Information ENCOUNTERS Encounter Location Date Diagnosis [facility] [address] [place] [address] [place] [address] Jan, [facility] [address] [place] [address] [place] [address] Jan, [facility] [address] [place] [address] [place] [address] Dec, [facility] [address] [place] [address], [place] [address] Dec, [facility] [address] [place] [address] [place] [address] Dec, [facility] [address] [place] [address], [place] [address] Nov, [facility] [address] [place] [address], [place] [address] Nov, [facility] [address] [id number] [id number] Sep, Dental examination Z01.20 [facility] [address] [id number] [id number] 10 Jun, 2015 Dental examination V72.2 [facility] [address] [address] Jan, [facility] [address] [address] Jan, [facility] [address] [address] Oct, [facility] [address] [address] Oct, [facility] [address] [address] Jul, [facility] [address] [address] Jul, [facility] [address] [address] Jun, [facility] [place] [facility] [address] [id number] [place] [address] Jun, [facility] [place] [facility] [address] [id number] [place] [address] May, [facility] [place] [facility] [address] [id number] [place] [address] May, [facility] [place] [facility] [address] [id number] [place] [address] May, [facility] [place] [facility] [address] [id number] [place] [address] May, [facility] [place] [facility] [address] [id number] [place] [address] 240[address] May, [facility] [place] [facility] [address] [id number] [place] [address] 39[address] May, [facility] [place] [facility] [address] [id number] [place] [address] May, [facility] [place] [facility] [address] [id number] [place] [address] May, [facility] [place] [facility] [address] [id number] [place] [address] Apr, [facility] [place] [facility] [address] [id number] [place] [address] 278[address] Apr, [facility] [place] [facility] [address] [id number] [place] [address] 8564 Apr, [facility] [place] [facility] [address] [id number] [place] [address] Apr, [facility] [place] [facility] [address] [id number] [place] [address]- [address] Apr, [facility] [place] [facility] [address] [id number] [place] [address] Apr, [facility] [place] [facility] [address] [id number] [place] [address] Apr, 2013 [facility] [place] [facility] [address] [id number] [place] [address] 1624 Apr, 2013 [facility] [place] [facility] [address] [id number] [place] [address]- 9[address] Apr, 2013 [facility] [place] [facility] [address] [id number] [place] [address]- [address] Apr, 2013 [facility] [place] [facility] [address] [id number] [place] [address] 72[address] Apr, 2013 [facility] [place] [facility] [address] [id number] [place] [address]- 3945 Apr, [facility] [place] [facility] [address] [id number] [place] [address] Apr, 2013 [facility] [place] [facility] [address] [id number] [place] [address]- 8370 Apr, [facility] [place] [facility] [address] [id number] [place] [address]- 9580 Apr, [facility] [place] [facility] [address] [id number] [place] [address]- 6683 Apr, [facility] [place] [facility] [address] [id number] [place] [address]- 5178 Apr, [facility] [place] [facility] [address] [id number] [place] [address]277 Mar, [facility] [place] [facility] [address] [id number] [place] [address]- 29[address] Mar, [facility] [place] [facility] [address] [id number] [place] [address]- [address] Mar, [facility] [place] [facility] [address] [id number] [place] [address]- 56[address] Mar, [facility] [place] [facility] [address] [id number] [place] [address]- 9055 Mar, [facility] [place] [facility] [address] [id number] [place] [address]- 1276 Mar, [facility] [place] [facility] [address] [id number] [place] [address]- 5397 Mar, [facility] [place] [facility] [address] [id number] [place] [address] Mar, [facility] [place] [facility] [address] [id number] [place] [address]- 8448 Mar, [facility] [place] [facility] [address] [id number] [place] [address] Mar, [facility] [place] [facility] [address] [id number] [place] [address] 9968 Mar, [facility] [place] [facility] [address] [id number] [place] [address]- 8510 Mar, [facility] [place] [facility] [address] [id number] [place] [address]- [address] February, [facility] [place] [facility] [address] [id number] [place] [address]- 6164 February, [facility] [place] [facility] [address] [id number] [place] [address]- 4[address] February, [facility] [place] [facility] [address] [id number] [place] [address] 9[address] February, [facility] [place] [facility] [address] [id number] [place] [address]- [address]255 February, [facility] [place] [facility] [address] [id number] [place] [address]- 2405 February, [facility] [place] [facility] [address] [id number] [place] [address]- 3506 February, [facility] [place] [facility] [address] [id number] [place] [address]- 0940 February, [facility] [place] [facility] [address] [id number] [place] [address]- 5777 February, [facility] [place] [facility] [address] [id number] [place] [address]- 0033 February, [facility] [place] [facility] [address] [id number] [place] [address]- 1302 February, [facility] [place] [facility] [address] [id number] [place] [address] 4534 February, [facility] [place] [facility] [address] [id number] [place] [address]- 8689 Jan, [facility] [place] [facility] [address] [id number] [place] [address]- 9925 Jan, [facility] [place] [facility] [address] [id number] [place] [address]- 1517 Jan, [facility] [place] [facility] [address] [id number] [place] [address]- 8643 Jan, [facility] [place] [facility] [address] [id number] [place] [address]- 1224 Jan, [facility] [place] [facility] [address] [id number] [place] [address]- 8898 Jan, [facility] [place] [facility] [address] [id number] [place] [address]- 4847 Dec, [facility] [place] [facility] [address] [id number] [place] [address]- 3532 Dec, [facility] [place] [facility] [address] [id number] [place] [address] Dec, [facility] [place] [facility] [address] [id number] [place] [address]- 3693 Dec, [facility] [place] [facility] [address] [id number] [place] [address]- 6855 Dec, [facility] [place] [facility] [address] [id number] [place] [address] Dec, [facility] [place] [facility] [address] [id number] [place] [address]- 5585 Nov, [facility] [place] [facility] [address] [id number] [place] [address]- 5760 18 Nov, 2013 [facility] [place] [facility] [address] [id number] [place] [address]- 0847 Nov, [facility] [place] [facility] [address] [id number] [place] [address]- 7996 Nov, [facility] [place] [facility] [address] [id number] [place] [address]- 6478 Oct, [facility] [place] [facility] [address] [id number] [place] [address]- 1177 Oct, [facility] [place] [facility] [address] [id number] [place] [address]- 8340 Oct, [facility] [place] [facility] [address] [id number] [place] [address]- 9496 Oct, [facility] [place] [facility] [address] [id number] [place] [address]- 0264 Oct, [facility] [place] [facility] [address] [id number] [place] [address]- 8720 Oct, [facility] [place] [facility] [address] [id number] [place] [address]- 1777 Oct, [facility] [place] [facility] [address] [id number] [place] [address]- 5682 Oct, [facility] [place] [facility] [address] [id number] [place] [address]- 6082 Oct, [facility] [place] [facility] [address] [id number] [place] [address]- 5843 Sep, [facility] [place] [facility] [address] [id number] [place] [address]- 2990 Sep, [facility] [place] [facility] [address] [id number] [place] [address]- 2265 Sep, [facility] [place] [facility] [address] [id number] [place] [address]- 4955 26 Sep, 2013 [facility] [place] [facility] [address] [id number] [place] [address]- 3156 16 Sep, 2013 [facility] [place] [facility] [address] [id number] [place] [address]- 2172 13 Sep, 2013 [facility] [place] [facility] [address] [id number] [place] [address]- 9018 Sep, [facility] [place] [facility] [address] [id number] [place] [address]- 4838 Aug, [facility] [place] [facility] [address] [id number] [place] [address]- 2787 Aug, [facility] [place] [facility] [address] [id number] [place] [address]- 8076 28 Jul, 2013 [facility] [place] [facility] [address] [id number] [place] [address]- 7654 28 Jul, 2013 [facility] [place] [facility] [address] [id number] [place] [address]- 2181 14 Jul, 2013 [facility] [place] [facility] [address] [id number] [place] [address]- 8622 14 Jul, 2013 [facility] [place] [facility] [address] [id number] [place] [address]- 6900 12 Jul, 2013 [facility] [place] [facility] [address] [id number] [place] [address]- 4396 12 Jul, 2013 [facility] [place] [facility] [address] [id number] [place] [address]- 2667 25 Jun, 2013 [facility] [place] [facility] [address] [id number] [place] [address]- 2077 16 Jun, 2013 [facility] [place] [facility] [address] [id number] [place] [address]- 2266 13 Jun, 2013 [facility] [place] [facility] [address] [id number] [place] [address]- 3586 May, [facility] [address] [id number] [place] [address]- 2498 May, [facility] [place] [facility] [address] [id number] [place] [address]- 9428 Apr, [facility] [place] [facility] [address] [id number] [place] [address]- 4177 Apr, [facility] [place] [facility] [address] [id number] [place] [address]- 8097 Apr, [facility] [place] [facility] [address] [id number] [place] [address]- 1848 Mar, [facility] [place] [facility] [address] [id number] [place] [address]- 2305 Mar, [facility] [place] [facility] [address] [id number] [place] [address]- 2410 February, [facility] [place] [facility] [address] [id number] [place] [address]- 9550 February, [facility] [place] [facility] [address] [id number] [place] [address]- 7238 Jan, [facility] [place] [facility] [address] [id number] [place] [address]- 3352 Jan, [facility] [place] [facility] [address] [id number] [place] [address]- 6774 Dec, [facility] [place] [facility] [address] [id number] [place] [address]- 0657 Nov, [facility] [place] [facility] [address] [id number] [place] [address]- 8881 Nov, [facility] [place] [facility] [address] [id number] [place] [address]- 2546 Nov, [facility] [place] [facility] [address] [id number] [place] [address]- 2546 Oct, [facility] [place] [facility] [address] [id number] [place] [address]- 9187 08 Aug, 2012 [facility] [place] [facility] [address] [id number] [place] [address]- 8975 Aug, [facility] [place] [facility] [address] [id number] [place] [address]- 1193 Aug, [facility] [place] [facility] [address] [id number] [place] [address]- 9265 Aug, [facility] [place] [facility] [address] [id number] [place] [address]- 8396 26 Jun, 2012 [facility] [place] [facility] [address] [id number] [place] [address]- 9021 10 Jun, 2012 [facility] [place] [facility] [address] [id number] [place] [address]- 5239 Jun, [facility] [place] [facility] [address] [id number] [place] [address]- 9168 Jun, [facility] [place] [facility] [address] [id number] [place] [address]- 8519 05 Jun, 2012 [facility] [place] [facility] [address] [id number] [place] [address]- 9793 May, [facility] [place] [facility] [address] [id number] [place] [address]- 6766 May, [facility] [place] [facility] [address] [id number] [place] [address]- 1484 May, [facility] [place] [facility] [address] [id number] [place] [address]- 4707 May, [facility] [place] [facility] [address] [id number] [place] [address]- 4445 Mar, [facility] [place] [facility] [address] [id number] [place] [address]- 1252 Mar, [facility] [place] [facility] [address] [id number] [place] [address]- 7020 February, [facility] [address] [id number] [place] [address]- 5582 February, [facility] [place] [facility] [address] [id number] [place] [address]- 7110 Jan, [facility] [place] [facility] [address] [id number] [place] [address]- 1588 17 Jan, 2012 [facility] [place] [facility] [address] [id number] [place] [address]- 0487 13 Jan, 2012 [facility] [address] [id number] [place] [address]- 6743 Jan, [facility] [place] [facility] [address] [id number] [place] [address]- 5743 Jan, [facility] [place] [facility] [address] [id number] [place] [address]- 6933 20 Nov, 2011 [facility] [place] [facility] [address] [id number] [place] [address]- 0992 15 Nov, 2011 [facility] [place] [facility] [address] [id number] [place] [address]- 8842 10 Nov, 2011 [facility] [place] [facility] [address] [id number] [place] [address]- 2370 Oct, [facility] [place] [facility] [address] [id number] [place] [address]- 2490 14 Sep, 2011 [facility] [place] [facility] [address] [id number] [place] [address]- 4008 14 Sep, 2011 [facility] [place] [facility] [address] [id number] [place] [address]- 4550 Sep, [facility] [place] [facility] [address] [id number] [place] [address]- 9779 22 Aug, 2011 [facility] [place] [facility] [address] [id number] [place] [address]- 3834 Aug, [facility] [place] [facility] [id number] [address]- 9636 11 Jul, 2011 [facility] [address] [address]- 8683 11 Jul, 2011 [facility] [address] [address]- 7586 18 Jun, 2010 [facility] [address] [address]- 3928 17 Nov, 2009 [facility] [address] [address]- 8229 Aug, [facility] [address] [id number] [address]- 6666 Mar, [facility] [address] [id number] [address]- 9787 19 Nov, 2008 IMMUNIZATIONS No Known Immunizations SOCIAL HISTORY Never Assessed REASON FOR VISIT EMR-[facility] PLAN OF CARE VITAL SIGNS MEDICATIONS Unknown Medications RESULTS No Results PROCEDURES No Known procedures INSTRUCTIONS MEDICATIONS ADMINISTERED No Known Medications
--- OUTSIDE RECORDS SUMMARY | 2019-03-04 10:35 | XMS REPORT ---
Author Author Migration, Doctor Organization [facility] Address Unknown Phone Unavailable Care Team Providers Care Pharmacist Hospital Name Role Phone Migration, Doctor Unavailable Unavailable PROBLEMS Type Condition ICD9-CM Code VEB93-GP Code Onset Dates Condition Status SNOMED Code Problem Unspecified breast screening V76.10 Active 819881368 Problem Dietary surveillance and counseling V65.3 Active 927426689 Problem Counseling on substance use and abuse V65.42 Active 873558305 Problem Cervicalgia 723.1 Active 03749597 Problem Pain in soft tissues of limb 729.5 Active 74263159 Problem Sprain and strain of unspecified site of knee and leg 844.9 Active 190347296 Problem Neck sprain and strain 847.0 Active 791083890 Problem Enlargement of lymph nodes 785.6 Active 23369508 Problem Chest pain, unspecified 786.50 Active 12646197 Problem Rash and other nonspecific skin eruption 782.1 Active 603306301 Problem Abnormal weight gain 783.1 Active 335728006 Problem Unspecified sleep apnea 780.57 Active 62851128 Problem Other malaise and fatigue 780.79 Active 806693804 Problem Pain in joint, lower leg 719.46 Active 791141859 Problem Pain in joint, pelvic region and thigh 719.45 Active 923273022 Problem Pain in joint, shoulder region 719.41 Active 739390264 Problem Obesity, unspecified 278.00 Active 328583258 Problem Hormone replacement therapy (postmenopausal) V07.4 Active 437861420 Problem Other and unspecified hyperlipidemia 272.4 Active 85587064 Problem Family history of malignant neoplasm of gastrointestinal tract V16.0 Active 398703582 Problem Falling from high place on residential premises, undetermined whether accidentally or purposely inflicted E987.0 Active Problem Unspecified disorder of skin and subcutaneous tissue 709.9 Active 62684622 Problem Cellulitis and abscess of unspecified site 682.9 Active 974416096 Problem Thoracic or lumbosacral neuritis or radiculitis, unspecified 724.4 Active 026184825 Problem Acute bronchitis 466.0 Active 51063746 ALLERGIES No Information ENCOUNTERS Encounter Location Date Diagnosis [facility] [address] [place] [address] [place] [address] Jan, [facility] [address] [place] [address] [place] [address] Jan, [facility] [address] [place] [address] [place] [address] Dec, [facility] [address] [place] [address], [place] [address] Dec, [facility] [address] [place] [address] [place] [address] Dec, [facility] [address] [place] [address], [place] [address] Nov, [facility] [address] [place] [address], [place] [address] Nov, [facility] [address] [id number] [id number] Sep, Dental examination Z01.20 [facility] [address] [id number] [id number] 10 Jun, 2015 Dental examination V72.2 [facility] [address] [address] Jan, [facility] [address] [address] Jan, [facility] [address] [address] Oct, [facility] [address] [address] Oct, [facility] [address] [address] Jul, [facility] [address] [address] Jul, [facility] [address] [address] Jun, [facility] [place] [facility] [address] [id number] [place] [address] Jun, [facility] [place] [facility] [address] [id number] [place] [address] May, [facility] [place] [facility] [address] [id number] [place] [address] May, [facility] [place] [facility] [address] [id number] [place] [address] May, [facility] [place] [facility] [address] [id number] [place] [address] May, [facility] [place] [facility] [address] [id number] [place] [address] May, [facility] [place] [facility] [address] [id number] [place] [address]234 May, [facility] [place] [facility] [address] [id number] [place] [address] May, [facility] [place] [facility] [address] [id number] [place] [address] May, [facility] [place] [facility] [address] [id number] [place] [address] 6697 Apr, [facility] [place] [facility] [address] [id number] [place] [address] 2768 Apr, [facility] [place] [facility] [address] [id number] [place] [address] 2668 Apr, [facility] [place] [facility] [address] [id number] [place] [address] Apr, [facility] [place] [facility] [address] [id number] [place] [address] Apr, [facility] [place] [facility] [address] [id number] [place] [address]879 Apr, [facility] [place] [facility] [address] [id number] [place] [address] 6645 Apr, 2013 [facility] [place] [facility] [address] [id number] [place] [address]- 8117 Apr, 2013 [facility] [place] [facility] [address] [id number] [place] [address]- 4213 Apr, 2013 [facility] [place] [facility] [address] [id number] [place] [address] 8839 Apr, 2013 [facility] [place] [facility] [address] [id number] [place] [address] 4088 Apr, 2013 [facility] [place] [facility] [address] [id number] [place] [address]- 2733 Apr, [facility] [place] [facility] [address] [id number] [place] [address] 4998 Apr, 2013 [facility] [place] [facility] [address] [id number] [place] [address]- 5590 Apr, [facility] [place] [facility] [address] [id number] [place] [address] 8181 Apr, [facility] [place] [facility] [address] [id number] [place] [address] 7355 Apr, [facility] [place] [facility] [address] [id number] [place] [address] 3739 Apr, [facility] [place] [facility] [address] [id number] [place] [address]- 9374 Mar, [facility] [place] [facility] [address] [id number] [place] [address]- 7137 Mar, [facility] [place] [facility] [address] [id number] [place] [address]- 8928 Mar, [facility] [place] [facility] [address] [id number] [place] [address] 8524 Mar, [facility] [place] [facility] [address] [id number] [place] [address]- 4875 Mar, [facility] [place] [facility] [address] [id number] [place] [address] 9435 Mar, [facility] [place] [facility] [address] [id number] [place] [address]- 7448 Mar, [facility] [place] [facility] [address] [id number] [place] [address]- 7460 Mar, [facility] [place] [facility] [address] [id number] [place] [address]- 4716 Mar, [facility] [place] [facility] [address] [id number] [place] [address] Mar, [facility] [place] [facility] [address] [id number] [place] [address]- 5461 Mar, [facility] [place] [facility] [address] [id number] [place] [address]- 6083 Mar, [facility] [place] [facility] [address] [id number] [place] [address] 9269 February, [facility] [place] [facility] [address] [id number] [place] [address]- 7839 February, [facility] [place] [facility] [address] [id number] [place] [address]- 1780 February, [facility] [place] [facility] [address] [id number] [place] [address] 1504 February, [facility] [place] [facility] [address] [id number] [place] [address]- 7506 February, [facility] [place] [facility] [address] [id number] [place] [address]- 5727 February, [facility] [place] [facility] [address] [id number] [place] [address]- 6325 February, [facility] [place] [facility] [address] [id number] [place] [address]- 7915 February, [facility] [place] [facility] [address] [id number] [place] [address] 7680 February, [facility] [place] [facility] [address] [id number] [place] [address]- 8220 February, [facility] [place] [facility] [address] [id number] [place] [address]- 5850 February, [facility] [place] [facility] [address] [id number] [place] [address]- 3945 February, [facility] [place] [facility] [address] [id number] [place] [address] 1945 Jan, [facility] [place] [facility] [address] [id number] [place] [address] 6879 Jan, [facility] [place] [facility] [address] [id number] [place] [address]- 2855 Jan, [facility] [place] [facility] [address] [id number] [place] [address]- 4347 Jan, [facility] [place] [facility] [address] [id number] [place] [address]- 5521 Jan, [facility] [place] [facility] [address] [id number] [place] [address]- 7798 Jan, [facility] [place] [facility] [address] [id number] [place] [address]- 8701 Dec, [facility] [place] [facility] [address] [id number] [place] [address]- 6163 Dec, [facility] [place] [facility] [address] [id number] [address] Dec, [facility] [place] [facility] [address] [id number] [place] [address]- 9221 Dec, [facility] [place] [facility] [address] [id number] [place] [address]- 7382 Dec, [facility] [place] [facility] [address] [id number] [place] [address] Dec, [facility] [place] [facility] [address] [id number] [place] [address]- 7013 Nov, [facility] [place] [facility] [address] [id number] [place] [address]- 1203 18 Nov, 2013 [facility] [place] [facility] [address] [id number] [place] [address]- 1891 Nov, [facility] [place] [facility] [address] [id number] [place] [address]- 4496 Nov, [facility] [place] [facility] [address] [id number] [place] [address]- 5154 Oct, [facility] [place] [facility] [address] [id number] [place] [address]- 5945 Oct, [facility] [place] [facility] [address] [id number] [place] [address]- 0199 Oct, [facility] [place] [facility] [address] [id number] [place] [address]- 1032 Oct, [facility] [place] [facility] [address] [id number] [place] [address]- 9107 Oct, [facility] [place] [facility] [address] [id number] [place] [address]- 0316 Oct, [facility] [place] [facility] [address] [id number] [place] [address]- 4340 Oct, [facility] [place] [facility] [address] [id number] [place] [address]- 5027 Oct, [facility] [place] [facility] [address] [id number] [place] [address]- 9537 Oct, [facility] [place] [facility] [address] [id number] [place] [address]- 2288 Sep, [facility] [place] [facility] [address] [id number] [place] [address]- 6027 Sep, [facility] [place] [facility] [address] [id number] [place] [address]- 3436 Sep, [facility] [place] [facility] [address] [id number] [place] [address]- 4492 26 Sep, 2013 [facility] [place] [facility] [address] [id number] [place] [address]- 9364 16 Sep, 2013 [facility] [place] [facility] [address] [id number] [place] [address]- 3023 13 Sep, 2013 [facility] [place] [facility] [address] [id number] [place] [address]- 0890 Sep, [facility] [place] [facility] [address] [id number] [place] [address]- 0532 Aug, [facility] [place] [facility] [address] [id number] [place] [address]- 4361 Aug, [facility] [place] [facility] [address] [id number] [place] [address]- 7112 28 Jul, 2013 [facility] [place] [facility] [address] [id number] [place] [address]- 3672 28 Jul, 2013 [facility] [place] [facility] [address] [id number] [place] [address]- 8052 14 Jul, 2013 [facility] [place] [facility] [address] [id number] [place] [address]- 4347 14 Jul, 2013 [facility] [place] [facility] [address] [id number] [place] [address]- 8539 12 Jul, 2013 [facility] [place] [facility] [address] [id number] [place] [address]- 8438 12 Jul, 2013 [facility] [place] [facility] [address] [id number] [place] [address]- 3521 25 Jun, 2013 [facility] [place] [facility] [address] [id number] [place] [address]- 3844 16 Jun, 2013 [facility] [place] [facility] [address] [id number] [place] [address]- 7667 13 Jun, 2013 [facility] [place] [facility] [address] [id number] [place] [address]- 5286 May, [facility] [address] [id number] [place] [address]- 7199 May, [facility] [place] [facility] [address] [id number] [place] [address]- 7927 Apr, [facility] [place] [facility] [address] [id number] [place] [address]- 1465 Apr, [facility] [place] [facility] [address] [id number] [place] [address]- 4231 Apr, [facility] [place] [facility] [address] [id number] [place] [address]- 1497 Mar, [facility] [place] [facility] [address] [id number] [place] [address]- 5147 Mar, [facility] [place] [facility] [address] [id number] [place] [address]- 2553 February, [facility] [place] [facility] [address] [id number] [place] [address]- 5658 February, [facility] [place] [facility] [address] [id number] [place] [address]- 1922 Jan, [facility] [place] [facility] [address] [id number] [place] [address]- 9772 Jan, [facility] [place] [facility] [address] [id number] [place] [address]- 7483 Dec, [facility] [place] [facility] [address] [id number] [place] [address]- 0620 Nov, [facility] [place] [facility] [address] [id number] [place] [address]- 9525 Nov, [facility] [place] [facility] [address] [id number] [place] [address]- 2546 Nov, [facility] [place] [facility] [address] [id number] [place] [address]- 2546 Oct, [facility] [place] [facility] [address] [id number] [place] [address]- 7660 08 Aug, 2012 [facility] [place] [facility] [address] [id number] [place] [address]- 1884 Aug, [facility] [place] [facility] [address] [id number] [place] [address]- 6984 Aug, [facility] [place] [facility] [address] [id number] [place] [address]- 8977 Aug, [facility] [place] [facility] [address] [id number] [place] [address]- 1210 26 Jun, 2012 [facility] [place] [facility] [address] [id number] [place] [address]- 6243 10 Jun, 2012 [facility] [place] [facility] [address] [id number] [place] [address]- 4194 Jun, [facility] [place] [facility] [address] [id number] [place] [address]- 0630 Jun, [facility] [place] [facility] [address] [id number] [place] [address]- 9407 05 Jun, 2012 [facility] [place] [facility] [address] [id number] [place] [address]- 6696 May, [facility] [place] [facility] [address] [id number] [place] [address]- 4609 May, [facility] [place] [facility] [address] [id number] [place] [address]- 6440 May, [facility] [place] [facility] [address] [id number] [place] [address]- 9351 May, [facility] [place] [facility] [address] [id number] [place] [address]- 5125 Mar, [facility] [place] [facility] [address] [id number] [place] [address]- 0726 Mar, [facility] [place] [facility] [address] [id number] [place] [address]- 0747 February, [facility] [address] [id number] [place] [address]- 2750 February, [facility] [place] [facility] [address] [id number] [place] [address]- 5738 Jan, [facility] [place] [facility] [address] [id number] [place] [address]- 4569 17 Jan, 2012 [facility] [place] [facility] [address] [id number] [place] [address]- 6139 13 Jan, 2012 [facility] [address] [id number] [place] [address]- 7832 Jan, [facility] [place] [facility] [address] [id number] [place] [address]- 7808 Jan, [facility] [place] [facility] [address] [id number] [place] [address]- 2260 20 Nov, 2011 [facility] [place] [facility] [address] [id number] [place] [address]- 3532 15 Nov, 2011 [facility] [place] [facility] [address] [id number] [place] [address]- 7338 10 Nov, 2011 [facility] [place] [facility] [address] [id number] [place] [address]- 9505 Oct, [facility] [place] [facility] [address] [id number] [place] [address]- 7864 14 Sep, 2011 [facility] [place] [facility] [address] [id number] [place] [address]- 4015 14 Sep, 2011 [facility] [place] [facility] [address] [id number] [place] [address]- 3630 Sep, [facility] [place] [facility] [address] [id number] [place] [address]- 4777 22 Aug, 2011 [facility] [place] [facility] [address] [id number] [place] [address]- 8504 Aug, [facility] [place] [facility] [address] [id number] [address]- 2106 11 Jul, 2011 [facility] [address] [address]- 1155 11 Jul, 2011 [facility] [address] [address]- 8960 18 Jun, 2010 [facility] [address] [address]- 3514 17 Nov, 2009 [facility] [address] [address]- 5287 Aug, [facility] [address] [id number] [address]- 5940 Mar, [facility] [address] [id number] [address]- 8875 19 Nov, 2008 IMMUNIZATIONS No Known Immunizations SOCIAL HISTORY Never Assessed REASON FOR VISIT EMR-[facility] PLAN OF CARE VITAL SIGNS MEDICATIONS Unknown Medications RESULTS No Results PROCEDURES No Known procedures INSTRUCTIONS MEDICATIONS ADMINISTERED No Known Medications
--- OUTSIDE RECORDS SUMMARY | 2019-03-04 10:35 | XMS REPORT ---
Author Author Migration, Doctor Organization [facility] Address Unknown Phone Unavailable Care Team Providers Care Highway Design Engineer Name Role Phone Migration, Doctor Unavailable Unavailable PROBLEMS Type Condition ICD9-CM Code YDL33-HF Code Onset Dates Condition Status SNOMED Code Problem Unspecified breast screening V76.10 Active 362284643 Problem Dietary surveillance and counseling V65.3 Active 639768786 Problem Counseling on substance use and abuse V65.42 Active 964937603 Problem Cervicalgia 723.1 Active 75584722 Problem Pain in soft tissues of limb 729.5 Active 54433840 Problem Sprain and strain of unspecified site of knee and leg 844.9 Active 309011533 Problem Neck sprain and strain 847.0 Active 375255375 Problem Enlargement of lymph nodes 785.6 Active 66379656 Problem Chest pain, unspecified 786.50 Active 97169848 Problem Rash and other nonspecific skin eruption 782.1 Active 307878546 Problem Abnormal weight gain 783.1 Active 495261874 Problem Unspecified sleep apnea 780.57 Active 92454583 Problem Other malaise and fatigue 780.79 Active 703711022 Problem Pain in joint, lower leg 719.46 Active 621642319 Problem Pain in joint, pelvic region and thigh 719.45 Active 960765037 Problem Pain in joint, shoulder region 719.41 Active 518257903 Problem Obesity, unspecified 278.00 Active 677798069 Problem Hormone replacement therapy (postmenopausal) V07.4 Active 076398886 Problem Other and unspecified hyperlipidemia 272.4 Active 95153071 Problem Family history of malignant neoplasm of gastrointestinal tract V16.0 Active 106471436 Problem Falling from high place on residential premises, undetermined whether accidentally or purposely inflicted E987.0 Active Problem Unspecified disorder of skin and subcutaneous tissue 709.9 Active 12828490 Problem Cellulitis and abscess of unspecified site 682.9 Active 339709781 Problem Thoracic or lumbosacral neuritis or radiculitis, unspecified 724.4 Active 365882683 Problem Acute bronchitis 466.0 Active 54195102 ALLERGIES No Information ENCOUNTERS Encounter Location Date Diagnosis [facility] [address] [place] [address] [place] [address] Jan, [facility] [address] [place] [address] [place] [address] Jan, [facility] [address] [place] [address] [place] [address] Dec, [facility] [address] [place] [address], [place] [address] Dec, [facility] [address] [place] [address] [place] [address] Dec, [facility] [address] [place] [address], [place] [address] Nov, [facility] [address] [place] [address], [place] [address] Nov, [facility] [address] [id number] [id number] Sep, Dental examination Z01.20 [facility] [address] [id number] [id number] 10 Jun, 2015 Dental examination V72.2 [facility] [address] [address] Jan, [facility] [address], [place] [address] Jan, [facility] [address], [place] [address] Oct, [facility] [address], [place] [address] Oct, [facility] [address] [address] Jul, [facility] [address] [address] Jul, [facility] [address] [address] Jun, [facility] [place] [facility] [address] [id number] [place] [address] Jun, [facility] [place] [facility] [address] [id number] [place] [address] May, [facility] [place] [facility] [address] [id number] [place] [address] 8526 May, [facility] [place] [facility] [address] [id number] [place] [address] 5788 May, [facility] [place] [facility] [address] [id number] [place] [address] 0461 May, [facility] [place] [facility] [address] [id number] [place] [address] 8511 May, [facility] [place] [facility] [address] [id number] [place] [address] 3465 May, [facility] [place] [facility] [address] [id number] [place] [address] 8356 May, [facility] [place] [facility] [address] [id number] [place] [address] 8426 May, [facility] [place] [facility] [address] [id number] [place] [address]323 Apr, [facility] [place] [facility] [address] [id number] [place] [address] 0480 Apr, [facility] [place] [facility] [address] [id number] [place] [address] 1235 Apr, [facility] [place] [facility] [address] [id number] [place] [address] 1312 Apr, [facility] [place] [facility] [address] [id number] [place] [address] 7917 Apr, [facility] [place] [facility] [address] [id number] [place] [address] 9961 Apr, [facility] [place] [facility] [address] [id number] [place] [address] 9397 Apr, 2013 [facility] [place] [facility] [address] [id number] [place] [address] 7601 Apr, 2013 [facility] [place] [facility] [address] [id number] [place] [address] 2[address] Apr, 2013 [facility] [place] [facility] [address] [id number] [place] [address] Apr, 2013 [facility] [place] [facility] [address] [id number] [place] [address] 0229 Apr, 2013 [facility] [place] [facility] [address] [id number] [place] [address] 9839 Apr, [facility] [place] [facility] [address] [id number] [place] [address] 3189 Apr, 2013 [facility] [place] [facility] [address] [id number] [place] [address] 7516 Apr, [facility] [place] [facility] [address] [id number] [place] [address] 2475 Apr, [facility] [place] [facility] [address] [id number] [place] [address] 7229 Apr, [facility] [place] [facility] [address] [id number] [place] [address] 6208 Apr, [facility] [place] [facility] [address] [id number] [place] [address] 8739 Mar, [facility] [place] [facility] [address] [id number] [place] [address] 4706 Mar, [facility] [place] [facility] [address] [id number] [place] [address] 4521 Mar, [facility] [place] [facility] [address] [id number] [place] [address] 0183 Mar, [facility] [place] [facility] [address] [id number] [place] [address]- 9490 Mar, [facility] [place] [facility] [address] [id number] [place] [address]- 5368 Mar, [facility] [place] [facility] [address] [id number] [place] [address] 4634 Mar, [facility] [place] [facility] [address] [id number] [place] [address] 1737 Mar, [facility] [place] [facility] [address] [id number] [place] [address] 8500 Mar, [facility] [place] [facility] [address] [id number] [place] [address]- 9683 Mar, [facility] [place] [facility] [address] [id number] [place] [address] 0402 Mar, [facility] [place] [facility] [address] [id number] [place] [address]- 4600 Mar, [facility] [place] [facility] [address] [id number] [place] [address] 9872 February, [facility] [place] [facility] [address] [id number] [place] [address] 7927 February, [facility] [place] [facility] [address] [id number] [place] [address]- 5595 February, [facility] [place] [facility] [address] [id number] [place] [address] 8831 February, [facility] [place] [facility] [address] [id number] [place] [address]- 7190 February, [facility] [place] [facility] [address] [id number] [place] [address]- 4362 February, [facility] [place] [facility] [address] [id number] [place] [address]- 2036 February, [facility] [place] [facility] [address] [id number] [place] [address]- 5249 February, [facility] [place] [facility] [address] [id number] [place] [address]- 5017 February, [facility] [place] [facility] [address] [id number] [place] [address]- 2056 February, [facility] [place] [facility] [address] [id number] [place] [address]- 1411 February, [facility] [place] [facility] [address] [id number] [place] [address]- 6166 February, [facility] [place] [facility] [address] [id number] [place] [address] 1531 Jan, [facility] [place] [facility] [address] [id number] [place] [address]- 7786 Jan, [facility] [place] [facility] [address] [id number] [place] [address]- 2587 Jan, [facility] [place] [facility] [address] [id number] [place] [address] 0601 Jan, [facility] [place] [facility] [address] [id number] [place] [address] 4959 Jan, [facility] [place] [facility] [address] [id number] [place] [address]- 9181 Jan, [facility] [place] [facility] [address] [id number] [place] [address]- 5503 Dec, [facility] [place] [facility] [address] [id number] [place] [address]- 5983 Dec, [facility] [place] [facility] [address] [id number], [place] [address] 9196 Dec, [facility] [place] [facility] [address] [id number] [place] [address]- 6210 Dec, [facility] [place] [facility] [address] [id number] [place] [address]- 1624 Dec, [facility] [place] [facility] [address] [id number] [place] [address] Dec, [facility] [place] [facility] [address] [id number] [place] [address]- 1561 Nov, [facility] [place] [facility] [address] [id number] [place] [address]- 1158 18 Nov, 2013 [facility] [place] [facility] [address] [id number] [place] [address]- 6514 Nov, [facility] [place] [facility] [address] [id number] [place] [address]- 7126 Nov, [facility] [place] [facility] [address] [id number] [place] [address]- 8174 Oct, [facility] [place] [facility] [address] [id number] [place] [address]- 6152 Oct, [facility] [place] [facility] [address] [id number] [place] [address]- 3191 Oct, [facility] [place] [facility] [address] [id number] [place] [address]- 0368 Oct, [facility] [place] [facility] [address] [id number] [place] [address]- 6844 Oct, [facility] [place] [facility] [address] [id number] [place] [address]- 0693 Oct, [facility] [place] [facility] [address] [id number] [place] [address]- 7986 Oct, [facility] [place] [facility] [address] [id number] [place] [address]- 8979 Oct, [facility] [place] [facility] [address] [id number] [place] [address]- 1152 Oct, [facility] [place] [facility] [address] [id number] [place] [address]- 2298 Sep, [facility] [place] [facility] [address] [id number] [place] [address]- 9274 Sep, [facility] [place] [facility] [address] [id number] [place] [address]- 9712 Sep, [facility] [place] [facility] [address] [id number] [place] [address]- 4418 26 Sep, 2013 [facility] [place] [facility] [address] [id number] [place] [address]- 7674 16 Sep, 2013 [facility] [place] [facility] [address] [id number] [place] [address]- 9392 13 Sep, 2013 [facility] [place] [facility] [address] [id number] [place] [address]- 6583 Sep, [facility] [place] [facility] [address] [id number] [place] [address]- 5952 Aug, [facility] [place] [facility] [address] [id number] [place] [address]- 9813 Aug, [facility] [place] [facility] [address] [id number] [place] [address]- 5565 28 Jul, 2013 [facility] [place] [facility] [address] [id number] [place] [address]- 7042 28 Jul, 2013 [facility] [place] [facility] [address] [id number] [place] [address]- 2937 14 Jul, 2013 [facility] [place] [facility] [address] [id number] [place] [address]- 1529 14 Jul, 2013 [facility] [place] [facility] [address] [id number] [place] [address]- 4109 12 Jul, 2013 [facility] [place] [facility] [address] [id number] [place] [address]- 9732 12 Jul, 2013 [facility] [place] [facility] [address] [id number] [place] [address]- 9630 25 Jun, 2013 [facility] [place] [facility] [address] [id number] [place] [address]- 1044 16 Jun, 2013 [facility] [place] [facility] [address] [id number] [place] [address]- 7782 13 Jun, 2013 [facility] [place] [facility] [address] [id number] [place] [address]- 3826 May, [facility] [address] [id number] [place] [address]- 1234 May, [facility] [place] [facility] [address] [id number] [place] [address]- 7899 Apr, [facility] [place] [facility] [address] [id number] [place] [address]- 1949 Apr, [facility] [place] [facility] [address] [id number] [place] [address]- 3682 Apr, [facility] [place] [facility] [address] [id number] [place] [address]- 0067 Mar, [facility] [place] [facility] [address] [id number] [place] [address]- 4241 Mar, [facility] [place] [facility] [address] [id number] [place] [address]- 6975 February, [facility] [place] [facility] [address] [id number] [place] [address]- 9509 February, [facility] [place] [facility] [address] [id number] [place] [address]- 8350 Jan, [facility] [place] [facility] [address] [id number] [place] [address]- 2740 Jan, [facility] [place] [facility] [address] [id number] [place] [address]- 0389 Dec, [facility] [place] [facility] [address] [id number] [place] [address]- 8398 Nov, [facility] [place] [facility] [address] [id number] [place] [address]- 7313 Nov, [facility] [place] [facility] [address] [id number] [place] [address]- 2546 Nov, [facility] [place] [facility] [address] [id number] [place] [address]- 2546 Oct, [facility] [place] [facility] [address] [id number] [place] [address]- 0733 08 Aug, 2012 [facility] [place] [facility] [address] [id number] [place] [address]- 6920 Aug, [facility] [place] [facility] [address] [id number] [place] [address]- 8824 Aug, [facility] [place] [facility] [address] [id number] [place] [address]- 2262 Aug, [facility] [place] [facility] [address] [id number] [place] [address]- 0333 26 Jun, 2012 [facility] [place] [facility] [address] [id number] [place] [address]- 9569 10 Jun, 2012 [facility] [place] [facility] [address] [id number] [place] [address]- 7974 Jun, [facility] [place] [facility] [address] [id number] [place] [address]- 1094 Jun, [facility] [place] [facility] [address] [id number] [place] [address]- 0939 05 Jun, 2012 [facility] [place] [facility] [address] [id number] [place] [address]- 6788 May, [facility] [place] [facility] [address] [id number] [place] [address]- 3186 May, [facility] [place] [facility] [address] [id number] [place] [address]- 6515 May, [facility] [place] [facility] [address] [id number] [place] [address]- 3600 May, [facility] [place] [facility] [address] [id number] [place] [address]- 0605 Mar, [facility] [place] [facility] [address] [id number] [place] [address]- 6773 Mar, [facility] [place] [facility] [address] [id number] [place] [address]- 4504 February, [facility] [address] [id number] [place] [address]- 5784 February, [facility] [place] [facility] [address] [id number] [place] [address]- 2069 Jan, [facility] [place] [facility] [address] [id number] [place] [address]- 2389 17 Jan, 2012 [facility] [place] [facility] [address] [id number] [place] [address]- 4345 13 Jan, 2012 [facility] [address] [id number] [place] [address]- 4353 Jan, [facility] [place] [facility] [address] [id number] [place] [address]- 1969 Jan, [facility] [place] [facility] [address] [id number] [place] [address]- 7254 20 Nov, 2011 [facility] [place] [facility] [address] [id number] [place] [address]- 7383 15 Nov, 2011 [facility] [place] [facility] [address] [id number] [place] [address]- 3471 10 Nov, 2011 [facility] [place] [facility] [address] [id number] [place] [address]- 0018 Oct, [facility] [place] [facility] [address] [id number] [place] [address]- 5879 14 Sep, 2011 [facility] [place] [facility] [address] [id number] [place] [address]- 3634 14 Sep, 2011 [facility] [place] [facility] [address] [id number] [place] [address]- 5888 Sep, [facility] [place] [facility] [address] [id number] [place] [address]- 0533 22 Aug, 2011 [facility] [place] [facility] [address] [id number] [place] [address]- 3228 Aug, [facility] [place] [facility] [address] [id number] [address] 7926 11 Jul, 2011 [facility] [address], [place] [address]- 4321 11 Jul, 2011 [facility] [address], [place] [address]- 5780 18 Jun, 2010 [facility] [address], [place] [address]- 0488 17 Nov, 2009 [facility] [address], [place] [address]- 6854 Aug, [facility] [address] [id number] [address] 3305 Mar, [facility] [address] [id number] [address]- 6083 19 Nov, 2008 IMMUNIZATIONS No Known Immunizations SOCIAL HISTORY Never Assessed REASON FOR VISIT EMR-[facility] [place] PLAN OF CARE VITAL SIGNS MEDICATIONS Unknown Medications RESULTS No Results PROCEDURES No Known procedures INSTRUCTIONS MEDICATIONS ADMINISTERED No Known Medications
--- OUTSIDE RECORDS SUMMARY | 2019-03-04 10:39 | XMS REPORT | Continuity of Care Document ---
Author Organization Unknown Address Unknown Allergies Active Description Code Type Severity Reaction Onset Reported/Identified Relationship to Patient Clinical Status Yes codeine Drug Allergy N/A N/A 12/17/2008 Yes Percocet Drug Allergy N/A N/A 12/17/2008 Yes codeine Drug Allergy 12/17/2008 Yes Percocet 7.5/325 Drug Allergy 12/17/2008 Yes acetaminophen [id number] Drug Allergy Mild N/A 09/29/2011 Yes oxycodone HCl [id number] Drug Allergy Mild N/A 09/29/2011 Yes Sulfa (Sulfonamide Antibiotics) Drug Allergy N/A N/A 04/09/2013 Yes No Known Allergies [id number] Drug Allergy Unknown N/A 07/09/2018 Medications There [...] DIAZ APRN 840.9 SPRAIN/STRAIN SHOULDER/ARM 05/22/2008 JOE BEAN SNIPPER, LIVE T 840.9 SPRAIN/STRAIN SHOULDER/ARM 05/22/2008 LIVE [...] 06/15/2008 465.9 UPPER RESPIRATORY INFECTION 06/15/2008 JOE BEAN SNIPPER, LIVE T 465.9 UPPER RESPIRATORY INFECTION 06/15/2008 JOE BEAN SNIPPER, LIVE T 465.9 UPPER RESPIRATORY INFECTION 06/15/2008 MARIAH MALHOTRA, MILO Ponce 465.9 UPPER RESPIRATORY INFECTION 06/15/2008 JOE BEAN SNIPPER, LIVE T 465.9 UPPER RESPIRATORY INFECTION 06/15/2008 JOE BEAN SNIPPER, LIVE T 465.9 UPPER RESPIRATORY INFECTION 06/15/2008 JOE BEAN SNIPPER, LIVE T 465.9 UPPER RESPIRATORY INFECTION 06/15/2008 KENNY DO, PHILLY K 465.9 UPPER RESPIRATORY INFECTION 06/15/2008 JOE BEAN SNIPPER, LIVE T 465.9 UPPER RESPIRATORY INFECTION 06/15/2008 JOE BEAN SNIPPER, LIVE T 465.9 UPPER RESPIRATORY INFECTION 06/15/2008 JOE BEAN SNIPPER, LIVE T 465.9 UPPER RESPIRATORY INFECTION 06/15/2008 JOE BEAN SNIPPER, LIVE T 465.9 UPPER RESPIRATORY INFECTION 06/15/2008 JOE BEAN SNIPPER, LIVE T 465.9 UPPER RESPIRATORY INFECTION 06/15/2008 JOE BEAN SNIPPER, LIVE T 465.9 UPPER RESPIRATORY INFECTION 06/15/2008 KENNY DO, PHILLY K 465.9 UPPER RESPIRATORY INFECTION 06/15/2008 JOE BEAN SNIPPER, LIVE T 465.9 UPPER RESPIRATORY INFECTION 06/15/2008 ROBLES BEAN SNIPPER, TAE A 465.9 UPPER RESPIRATORY INFECTION 06/15/2008 KENNY DO, PHILLY K 465.9 UPPER RESPIRATORY INFECTION 06/15/2008 KENNY DO, PHILLY K 465.9 UPPER RESPIRATORY INFECTION 06/15/2008 WHITE DDS, CHIO D 465.9 UPPER RESPIRATORY INFECTION 06/15/2008 WHITE DDS, CHIO D 465.9 UPPER RESPIRATORY INFECTION 06/15/2008 WHITE DDS, KELLEY J 465.9 UPPER RESPIRATORY INFECTION 06/15/2008 JOE BEAN SNIPPER, LIVE T 465.9 UPPER RESPIRATORY INFECTION 06/26/2008 [...] 07/15/2008 338.4 CHRONIC PAIN SYNDROME 07/15/2008 V72.31 ARCH SUPPORT MAKER EXAM, ROUTINE 07/15/2008 338.4 CHRONIC PAIN SYNDROME 07/15/2008 V72.31 ARCH SUPPORT MAKER EXAM, ROUTINE 07/15/2008 ADÁN FARFAN MD 338.4 CHRONIC PAIN SYNDROME 07/15/2008 ADÁN FARFAN MD V72.31 ARCH SUPPORT MAKER EXAM, ROUTINE 07/15/2008 338.4 CHRONIC PAIN SYNDROME 07/15/2008 V72.31 ARCH SUPPORT MAKER EXAM, ROUTINE 07/15/2008 338.4 CHRONIC PAIN SYNDROME 07/15/2008 V72.31 ARCH SUPPORT MAKER EXAM, ROUTINE 07/15/2008 338.4 CHRONIC PAIN SYNDROME 07/15/2008 V72.31 ARCH SUPPORT MAKER EXAM, ROUTINE 07/15/2008 338.4 CHRONIC PAIN SYNDROME 07/15/2008 V72.31 ARCH SUPPORT MAKER EXAM, ROUTINE 07/15/2008 338.4 CHRONIC PAIN SYNDROME 07/15/2008 V72.31 ARCH SUPPORT MAKER EXAM, ROUTINE 07/15/2008 338.4 CHRONIC PAIN SYNDROME 07/15/2008 V72.31 ARCH SUPPORT MAKER EXAM, ROUTINE 07/15/2008 LIVE DIAZ APRN 338.4 CHRONIC PAIN SYNDROME 07/15/2008 LIVE DIAZ APRN V72.31 ARCH SUPPORT MAKER EXAM, ROUTINE 07/15/2008 LIVE DIAZ APRN 338.4 CHRONIC PAIN SYNDROME 07/15/2008 LIVE DIAZ APRN V72.31 ARCH SUPPORT MAKER EXAM, ROUTINE 07/15/2008 MARIAH MALHOTRA, MILO Ponce 338.4 CHRONIC PAIN SYNDROME 07/15/2008 MARIAH MALHOTRA, MILO Ponce V72.31 ARCH SUPPORT MAKER EXAM, ROUTINE 07/15/2008 LIVE DIAZ APRN T 338.4 CHRONIC PAIN SYNDROME 07/15/2008 LIVE DIAZ APRN T V72.31 ARCH SUPPORT MAKER EXAM, ROUTINE 07/15/2008 LIVE DIAZ APRN T 338.4 CHRONIC PAIN SYNDROME 07/15/2008 JOE BEAN SNIPPER LIVE T V72.31 ARCH SUPPORT MAKER EXAM, ROUTINE 07/15/2008 JOE BETANCURN LIVE T 338.4 CHRONIC PAIN SYNDROME 07/15/2008 JOE BETANCURN, LIVE T V72.31 ARCH SUPPORT MAKER EXAM, ROUTINE 07/15/2008 KENNY DO PHILLY K 338.4 CHRONIC PAIN SYNDROME 07/15/2008 KENNY DO PHILLY K V72.31 ARCH SUPPORT MAKER EXAM, ROUTINE 07/15/2008 JOE RODRIGUEZ LIVE T 338.4 CHRONIC PAIN SYNDROME 07/15/2008 JOE RODRIGUEZ LIVE T V72.31 ARCH SUPPORT MAKER EXAM, ROUTINE 07/15/2008 LIVE DIAZ APRN T 338.4 CHRONIC PAIN SYNDROME 07/15/2008 JOE RODRIGUEZ LIVE T V72.31 ARCH SUPPORT MAKER EXAM, ROUTINE 07/15/2008 JOE RODRIGUEZ LIVE T 338.4 CHRONIC PAIN SYNDROME 07/15/2008 JOE RODRIGUEZ LIVE T V72.31 ARCH SUPPORT MAKER EXAM, ROUTINE 07/15/2008 JOE RODRIGUEZ LIVE T 338.4 CHRONIC PAIN SYNDROME 07/15/2008 JOE RODRIGUEZ LIVE T V72.31 ARCH SUPPORT MAKER EXAM, ROUTINE 07/15/2008 JOE RODRIGUEZ LIVE T 338.4 CHRONIC PAIN SYNDROME 07/15/2008 JOE RODRIGUEZ LIVE T V72.31 ARCH SUPPORT MAKER EXAM, ROUTINE 07/15/2008 JOE RODRIGUEZ LIVE T 338.4 CHRONIC PAIN SYNDROME 07/15/2008 JOE RODRIGUEZ LIVE T V72.31 ARCH SUPPORT MAKER EXAM, ROUTINE 07/15/2008 KENNY DO PHILLY K 338.4 CHRONIC PAIN SYNDROME 07/15/2008 KENNY DO PHILLY K V72.31 ARCH SUPPORT MAKER EXAM, ROUTINE 07/15/2008 LIVE DIAZ APRN T 338.4 CHRONIC PAIN SYNDROME 07/15/2008 JOE RODRIGUEZ LIVE T V72.31 ARCH SUPPORT MAKER EXAM, ROUTINE 07/15/2008 TEA ARBOLEDA APRN A 338.4 CHRONIC PAIN SYNDROME 07/15/2008 TAE ARBOLEDA APRN A V72.31 ARCH SUPPORT MAKER EXAM, ROUTINE 07/15/2008 KENNY DO, PHILLY K 338.4 CHRONIC PAIN SYNDROME 07/15/2008 KENNY DO, PHILLY K V72.31 ARCH SUPPORT MAKER EXAM, ROUTINE 07/15/2008 KENNY DO, PHILLY K 338.4 CHRONIC PAIN SYNDROME 07/15/2008 KENNY DO, PHILLY K V72.31 ARCH SUPPORT MAKER EXAM, ROUTINE 07/15/2008 WHITE DDS, CHIO D 338.4 CHRONIC PAIN SYNDROME 07/15/2008 WHITE DDS, CHIO D V72.31 ARCH SUPPORT MAKER EXAM, ROUTINE 07/15/2008 WHITE DDS, CHIO D 338.4 CHRONIC PAIN SYNDROME 07/15/2008 WHITE DDS, CHIO D V72.31 ARCH SUPPORT MAKER EXAM, ROUTINE 07/15/2008 WHITE DDS, KELLEY J 338.4 CHRONIC PAIN SYNDROME 07/15/2008 WHITE DDS, KELLEY J V72.31 ARCH SUPPORT MAKER EXAM, ROUTINE 07/15/2008 LIVE DIAZ APRN 338.4 CHRONIC PAIN SYNDROME 07/15/2008 LIVE DIAZ APRN V72.31 ARCH SUPPORT MAKER EXAM, ROUTINE 08/05/2008 V70.0 GENERAL MEDICAL EXAM, [...] DISORDERS OF SKIN 11/02/2008 MARIAH MALHOTRA, MILO Ponce 709.1 VASCULAR DISORDERS OF SKIN 11/02/2008 LIVE [...] V70.5 PREEMPLOYMENT/PRESCHOOL EXAM 04/14/2009 MARIAH MALHOTRA, MILO oPnce V70.5 PREEMPLOYMENT/PRESCHOOL EXAM 04/14/2009 LIVE DIAZ APRN [...] DO, PHILLY K 133.0 SCABIES 04/28/2009 JOE BEAN SNIPPER, LIVE T 133.0 SCABIES 04/28/2009 ROBLES RODRIGUEZ, TAE A 133.0 SCABIES 04/28/2009 KENNY DO, PHILLY K 133.0 SCABIES 04/28/2009 KENNY DO, PHILLY K 133.0 SCABIES 04/28/2009 WHITE DDS, CHIO D 133.0 SCABIES 04/28/2009 WHITE DDS, CHIO D 133.0 SCABIES 04/28/2009 WHITE DDS, KELLEY J 133.0 SCABIES 04/28/2009 JOE BEAN SNIPPER, LIVE T 133.0 SCABIES 07/22/2009 786.2 cough 07/22/2009 786.2 cough 07/22/2009 NAHEED MALHOTRA, ADÁN 786.2 cough 07/22/2009 786.2 cough 07/22/2009 786.2 COUGH 07/22/2009 786.2 COUGH 07/22/2009 786.2 COUGH 07/22/2009 786.2 COUGH 07/22/2009 786.2 COUGH 07/22/2009 JOE BEAN SNIPPER, LIVE T 786.2 COUGH 07/22/2009 JOE BEAN SNIPPER, LIVE T 786.2 COUGH 07/22/2009 MARIAH MALHOTRA, MILO Ponce 786.2 COUGH 07/22/2009 JOE BEAN SNIPPER, LIVE T 786.2 COUGH 07/22/2009 JOE BEAN SNIPPER, LIVE T 786.2 COUGH 07/22/2009 JOE BEAN SNIPPER, LIVE T 786.2 COUGH 07/22/2009 KENNY DO, PHILLY K 786.2 COUGH 07/22/2009 JOE BEAN SNIPPER, LIVE T 786.2 COUGH 07/22/2009 JOE BEAN SNIPPER, LIVE T 786.2 COUGH 07/22/2009 JOE BEAN SNIPPER, LIVE T 786.2 COUGH 07/22/2009 JOE BEAN SNIPPER, LIVE T 786.2 COUGH 07/22/2009 JOE BEAN SNIPPER, LIVE T 786.2 COUGH 07/22/2009 JOE BEAN SNIPPER, LIVE T 786.2 COUGH 07/22/2009 KENNY DO, PHILLY K 786.2 COUGH 07/22/2009 JOE BEAN SNIPPER, LIVE T 786.2 COUGH 07/22/2009 ROBLES RODRIGUEZ, [...] 788.1 PAIN DURING URINATION (DYSURIA) 12/15/2009 ROBLES BEAN SNIPPER, TAE A 564.00 CONSTIPATION 12/15/2009 ROBLES BEAN SNIPPER, TAE A 788.1 PAIN DURING URINATION (DYSURIA) [...] DIAZ APRN 461.9 SINUSITIS ACUTE 12/23/2009 JOE BEAN SNIPPER, LIVE T 461.9 SINUSITIS ACUTE 12/23/2009 KENNY [...] DIAZ APRN T 786.07 WHEEZING 06/01/2010 JOE BEAN SNIPPER, LIVE T 466.0 BRONCHITIS, ACUTE 06/01/2010 JOE BEAN SNIPPER, LIVE T 724.2 PAIN LOW BACK 06/01/2010 JOE BEAN SNIPPER, LIVE T 786.07 WHEEZING 06/01/2010 JOE BEAN SNIPPER, LIVE T 466.0 BRONCHITIS, ACUTE 06/01/2010 JOE BEAN SNIPPER, LIVE T 724.2 PAIN LOW BACK 06/01/2010 JOE BEAN SNIPPER, LIVE T 786.07 WHEEZING 06/01/2010 JOE BEAN SNIPPER, LIVE T 466.0 BRONCHITIS, ACUTE 06/01/2010 JOE BEAN SNIPPER, LIVE T 724.2 PAIN LOW BACK 06/01/2010 JOE BEAN SNIPPER, LIVE T 786.07 WHEEZING 06/01/2010 JOE BEAN SNIPPER, LIVE T 466.0 BRONCHITIS, ACUTE 06/01/2010 JOE BEAN SNIPPER, LIVE T 724.2 PAIN LOW BACK 06/01/2010 JOE BEAN SNIPPER, LIVE T 786.07 WHEEZING 06/01/2010 JOE BEAN SNIPPER, LIVE T 466.0 BRONCHITIS, ACUTE 06/01/2010 JOE BEAN SNIPPER, LIVE T 724.2 PAIN LOW BACK 06/01/2010 JOE BEAN SNIPPER, LIVE T 786.07 WHEEZING 06/01/2010 KENNY DO, PHILLY K 466.0 BRONCHITIS, ACUTE 06/01/2010 KENNY DO, PHILLY K 724.2 PAIN LOW BACK 06/01/2010 KENNY DO, PHILLY K 786.07 WHEEZING 06/01/2010 JOE BEAN SNIPPER, LIVE T 466.0 BRONCHITIS, ACUTE 06/01/2010 JOE BEAN SNIPPER, LIVE T 724.2 PAIN LOW BACK 06/01/2010 JOE BEAN SNIPPER, LIVE T 786.07 WHEEZING 06/01/2010 ROBLES BEAN SNIPPER, TAE A 466.0 BRONCHITIS, ACUTE 06/01/2010 ROBLES BEAN SNIPPER, TAE A 724.2 PAIN LOW BACK 06/01/2010 ROBLES BEAN SNIPPER, TAE A 786.07 WHEEZING 06/01/2010 KENNY DO, [...] DO, PHILLY K 785.1 PALPITATIONS 05/30/2011 JOE BEAN SNIPPERLIVE Mejía T 785.1 PALPITATIONS 05/30/2011 JOE BETANCURLIVE Mejía T 785.1 PALPITATIONS 05/30/2011 JOE BEAN SNIPPERLIVE Mejía T 785.1 PALPITATIONS 05/30/2011 JOE BEAN SNIPPERLIVE Mejía T 785.1 PALPITATIONS 05/30/2011 JOE BEAN SNIPPERLIVE Mejía T 785.1 PALPITATIONS 05/30/2011 JOE BEAN SNIPPERLIVE Mejía T 785.1 PALPITATIONS 05/30/2011 KENNY DO, PHILLY K 785.1 PALPITATIONS 05/30/2011 JOE BEAN SNIPPERLIVE Mejía T 785.1 PALPITATIONS 05/30/2011 ROBLESTAE TELLEZ [...] LIVE DIAZ APRN 272.4 HYPERLIPIDEMIA 06/28/2012 JOE BEAN SNIPPER, LIVE T 729.5 LEG PAIN 06/28/2012 KENNY DO, PHILLY K 272.4 HYPERLIPIDEMIA 06/28/2012 KENNY DO, PHILLY K 729.5 LEG PAIN 06/28/2012 JOE BEAN SNIPPER, LIVE T 272.4 HYPERLIPIDEMIA 06/28/2012 JOE BEAN SNIPPER, LIVE T 729.5 LEG PAIN 06/28/2012 JOE BEAN SNIPPER, LIVE T 272.4 HYPERLIPIDEMIA 06/28/2012 JOE BEAN SNIPPER, LIVE T 729.5 LEG PAIN 06/28/2012 JOE BEAN SNIPPER, LIVE T 272.4 HYPERLIPIDEMIA 06/28/2012 JOE BEAN SNIPPER, LIVE T 729.5 LEG PAIN 06/28/2012 JOE BEAN SNIPPERLIVE Mejía T 272.4 HYPERLIPIDEMIA 06/28/2012 JOE BEAN SNIPPERLIVE Mejía T 729.5 LEG PAIN 06/28/2012 JOE BEAN SNIPPERLIVE Mejía T 272.4 HYPERLIPIDEMIA 06/28/2012 JOE BEAN SNIPPER, LIVE T 729.5 LEG PAIN 06/28/2012 LIVE DIAZ APRN T 272.4 HYPERLIPIDEMIA 06/28/2012 JOE RODRIGUEZ LIVE T 729.5 LEG PAIN 06/28/2012 KENNY DO, PHILLY K 272.4 HYPERLIPIDEMIA 06/28/2012 KENNY DO, PHILLY K 729.5 LEG PAIN 06/28/2012 JOE BEAN SNIPPER, LIVE T 272.4 HYPERLIPIDEMIA 06/28/2012 JOE RODRIGUEZ LIVE T 729.5 LEG PAIN 06/28/2012 ROBLESAlfonzo RODRIGUEZ TAE A 272.4 HYPERLIPIDEMIA 06/28/2012 ROBLESAlfonzo RODRIGUEZ TAE A 729.5 LEG PAIN 06/28/2012 KENNY DO, PHILLY K 272.4 HYPERLIPIDEMIA 06/28/2012 EKNNY DO, PHILLY K 729.5 LEG PAIN 06/28/2012 [...] T 785.6 ENLARGEMENT OF LYMPH NODES 12/16/2012 LIEV [...] OF LYMPH NODES 12/16/2012 TAE ARBOLEDA APRN 785.6 ENLARGEMENT OF LYMPH NODES [...] MONONEURITIS LEG NOS 07/02/2013 LM MALHOTRA, LEANDRA Casatneda Ot 682.0 CELLULITIS OF FACE 07/02/2013 LM [...] LIVE DIAZ APRN 782.1 RASH 11/28/2013 JOE BEAN SNIPPER, LIVE T 719.41 PAIN- SHOULDER 11/28/2013 LIVE [...] LIVE DIAZ APRN 719.45 PAIN- HIP 02/02/2014 CAROLE ARBOLEDA APRNIDI A 719.45 PAIN- HIP 02/02/2014 [...] LUMBOSACRAL NEURITIS NOS 01/14/2018 JOE, LIVE T CONCENTRATOR OPERATOR Ot 733.90 BONE CARTILAGE DIS NOS 01/14/2018 LIVE DIAZ CONCENTRATOR OPERATOR Ot 722.0 CERVICAL DISC DISPLACMNT 01/14/2018 LIVE DIAZ CONCENTRATOR OPERATOR Ot 793.7 NOSP (ABN) FINDINGS ON RADIOLOGICAL OT 01/14/2018 TAE ARBOLEDA Jerome BEAN SNIPPER Ot V16.0 FAMILY HX-GI MALIGNANCY 01/14/2018 CAROLE ARBOLEDAAIDEN Cano BEAN SNIPPER Ot V65.42 COUNSELING ON SUBSTANCE USE AND ABUSE 01/14/2018 ROBLESCAROLETAE A BEAN SNIPPER Ot V72.31 ROUTINE GYNECOLOGICAL EXAMINATION 01/14/2018 ROBLES, TAE A BEAN SNIPPER Ot V76.12 OTH SCREEN MAMMO-MALIGN NEOPLASM OF [...] 01/17/2018 KORTNEY DOYLE DO Ot Z79.899 OTHER SENIOR CARE (CURRENT) DRUG THERAPY 01/17/2018 LIVE DIAZ Ot 724.4 LUMBOSACRAL NEURITIS NOS 01/17/2018 LIVE DIAZ Ot 719.45 JOINT PAIN-PELVIS 01/17/2018 LIVE DIAZP Ot 724.4 LUMBOSACRAL NEURITIS NOS 01/17/2018 LIVE DIAZ Ot 733.90 BONE CARTILAGE DIS NOS 01/17/2018 LIVE DIAZ Ot 722.0 CERVICAL DISC DISPLACMNT 01/17/2018 LIVE DIAZ CONCENTRATOR OPERATOR Ot 793.7 NOSP (ABN) FINDINGS ON RADIOLOGICAL OT 01/17/2018 ROBLESCAROLETAEAIDEN Cano APRN Ot V16.0 FAMILY HX-GI MALIGNANCY 01/17/2018 ROBLES, TAE A BEAN SNIPPER Ot V65.42 COUNSELING ON SUBSTANCE USE AND ABUSE 01/17/2018 ROBLES, TAE A BEAN SNIPPER Ot V72.31 ROUTINE GYNECOLOGICAL EXAMINATION 01/17/2018 TAE [...] 01/18/2018 KORTNEY DOYLE DO Ot Z79.899 OTHER SENIOR CARE (CURRENT) DRUG THERAPY 04/12/2018 KORTNEY DOYLE DO Ot M54.16 RADICULOPATHY, LUMBAR REGION 05/03/2018 KORTNEY DOYLE DO Ot M54.16 RADICULOPATHY, LUMBAR REGION 05/10/2018 KORTNEY DOYLE DO Ot M54.16 RADICULOPATHY, LUMBAR REGION 07/09/2018 LIVE DIAZ CONCENTRATOR OPERATOR Ot 724.4 LUMBOSACRAL NEURITIS NOS 07/09/2018 LIVE DIAZ CONCENTRATOR OPERATOR Ot 719.45 JOINT PAIN-PELVIS 07/09/2018 LIVE DIAZ CONCENTRATOR OPERATOR Ot 724.4 LUMBOSACRAL NEURITIS NOS 07/09/2018 LIVE DIAZ CONCENTRATOR OPERATOR Ot 733.90 BONE CARTILAGE DIS NOS 07/09/2018 LIVE DIAZ CONCENTRATOR OPERATOR Ot 722.0 CERVICAL DISC DISPLACMNT 07/09/2018 LIVE DIAZ CONCENTRATOR OPERATOR Ot 793.7 NOSP (ABN) FINDINGS ON RADIOLOGICAL [...] INDEX (BMI) 38.0-38.9, ADULT 01/11/2019 LIVE DIAZ CONCENTRATOR OPERATOR Ot 724.4 LUMBOSACRAL NEURITIS NOS 01/11/2019 LIVE DIAZ CONCENTRATOR OPERATOR Ot 719.45 JOINT PAIN-PELVIS 01/11/2019 LIVE DIAZ CONCENTRATOR OPERATOR Ot 724.4 LUMBOSACRAL NEURITIS NOS 01/11/2019 LIVE DIAZ CONCENTRATOR OPERATOR Ot 733.90 BONE CARTILAGE DIS NOS 01/11/2019 LIVE DIAZ CONCENTRATOR OPERATOR Ot 722.0 CERVICAL DISC DISPLACMNT 01/11/2019 LIVE DIAZ CONCENTRATOR OPERATOR Ot 793.7 NOSP (ABN) FINDINGS ON RADIOLOGICAL [...] LUMBAR REGION 01/11/2019 SOHAIL MORALES MD Ot F32.9 MAJOR DEPRESSIVE DISORDER, SINGLE EPISOD 01/11/2019 SOHAIL MORALES MD Ot M54.16 RADICULOPATHY, LUMBAR REGION 01/11/2019 SOHAIL MORALES MD Ot M54.5 LOW BACK PAIN 01/11/2019 SOHAIL MORALES MD Ot Z79.51 STARTER MECHANIC (CURRENT) USE OF INHALED STERO 01/11/2019 SOHAIL MORALES MD Ot Z79.52 SENIOR CARE (CURRENT) USE OF SYSTEMIC STER 01/11/2019 SOHAIL [...] PAIN 01/14/2019 SOHAIL MORALES MD Ot Z79.51 STARTER MECHANIC (CURRENT) USE OF INHALED STERO 01/14/2019 SOHAIL MORALES MD Ot Z79.52 STARTER MECHANIC (CURRENT) USE OF SYSTEMIC STER 01/14/2019 SOHAIL MORALES MD Ot Z80.0 FAMILY HISTORY [...] FINDINGS ON RADIOLOGICAL OT 02/06/2019 TAE ARBOLEDA JENNIFER Ot V16.0 FAMILY HX-GI MALIGNANCY 02/06/2019 TAE ARBOLEDA JENNIFER Ot V65.42 COUNSELING ON SUBSTANCE USE AND ABUSE 02/06/2019 TAE ARBOLEDA BEAN SNIPPER Ot V72.31 ROUTINE GYNECOLOGICAL EXAMINATION 02/06/2019 TAE ARBOLEDA JENNIFER Ot V76.12 OTH SCREEN MAMMO-MALIGN NEOPLASM OF ASHLEE 02/06/2019 TAE ARBOLEDA JENNIFER Ot V76.12 OTH SCREEN MAMMO-MALIGN NEOPLASM OF ASHLEE 02/06/2019 KORTNEY DOYLE DO Ot M54.16 RADICULOPATHY, LUMBAR REGION 02/10/2019 LIVE DILL DO, Ot F32.9 MAJOR DEPRESSIVE DISORDER, SINGLE EPISOD 02/10/2019 LIVE DILL DO, Ot G89.29 OTHER CHRONIC PAIN 02/10/2019 LIVE DILL DO, Ot M54.42 LUMBAGO WITH SCIATICA, LEFT SIDE 02/10/2019 LIVE DILL DO, Ot M54.5 LOW BACK PAIN 02/10/2019 LIVE DILL DO, Ot Z79.52 STARTER MECHANIC (CURRENT) USE OF SYSTEMIC STER 02/10/2019 LIVE DILL DO, Ot Z80.0 FAMILY HISTORY OF MALIGNANT NEOPLASM OF 02/10/2019 LIVE DILL DO, Ot Z82.49 FAMILY HX OF ISCHEM HEART DIS AND OTH DI 02/10/2019 LIVE DILL DO, Ot Z87.01 PERSONAL HISTORY OF PNEUMONIA (RECURRENT 02/10/2019 LIVE DILL DO, Ot Z98.890 OTHER SPECIFIED POSTPROCEDURAL STATES Procedures Code Description [place] [address] VITAMIN D 25-HYDROXY (D2,D3 , TOTAL) 11/01/2012 73981 SLEEP STUDY 11/29/2012 82961 OXIMETRY 04/14/2013 17546 THERAPUTIC INJ SQ/IM 06/27/2013 J0696 ROCEPHIN INJ 06/27/2013 86.04 OTHER SKIN SUBQ I D 06/29/2013 21446 THERAPUTIC INJ SQ/IM 10/10/2013 J1885 TORADOL INJ 10/10/2013 52210 XRAY CHEST 2 VIEW 10/10/2013 51835 XRAY CERVICAL SPINE, 2 OR 3 VIEWS 10/10/2013 J1885 TORADOL INJ 10/23/2013 16942 THERAPUTIC INJ SQ/IM 10/23/2013 70048 MRI SPINE (THORACIC) W/O CONTRAST 10/27/2013 93330 THERAPUTIC INJ SQ/IM 11/03/2013 J2930 SOLUMEDROL INJ 11/03/2013 44972 THERAPUTIC INJ SQ/IM 12/12/2013 J2930 SOLUMEDROL INJ 12/12/2013 10475 THERAPUTIC INJ SQ/IM 12/16/2013 J1040 DEPO MEDROL 80 MG INJ 12/16/2013 J3301 KENALOG INJ, PER 10 MG 12/29/2013 49812 THERAPUTIC INJ SQ/IM 12/29/2013 27996 MRI SPINE (LUMBAR) W/O CONTRAST 02/02/2014 39483 XRAY HIP LEFT UNILATERAL MIN 2 VIEWS 02/02/2014 07315 MRI SPINE (CERVICAL) W/O CONTRAST 03/21/2014 NeurologAnca Damon 03/21/2014 44877 THERAPUTIC INJ SQ/IM 03/21/2014 J1040 DEPO MEDROL 80 MG INJ 03/21/2014 91113 THERAPUTIC INJ SQ/IM 03/25/2014 J3301 KENALOG INJ, PER 10 MG 03/25/2014 98218 WART DESTRUCT 1-14 (CRYO) 05/04/2014 89705 MAMMOGRAM DX, RIGHT 05/05/2014 95103 MAMMOGRAM, SCREENING 05/05/2014 Results Test Result Range [...] culture - 07/09/18 22:10 Bacterial urine culture [id number] NRG COLONY COUNT . NRG FTX;REPORTABLE 40,000 [...] Status Pt. Type Provider Facility Loc./Unit Complaint [id number] 11/05/2018 09:53:21 11/05/2018 23:59:59 C[facility] Outpatient KORTNEY REYNOSO [id number] 11/05/2018 08:20:54 11/05/2018 23:59:59 CLS Outpatient KORTNEY REYNOSO [id number] 08/31/2014 09:53:00 08/31/2014 23:59:59 [facility] Outpatient KELLEY COBB DDS [id number] 07/06/2014 00:00:00 07/06/2014 23:59:59 CLS Outpatient CHIO COBB DDS [id number] 06/12/2014 11:17:00 06/12/2014 23:59:59 [facility] Outpatient CHIO COBB DDS [id number] 05/04/2014 16:57:00 05/04/2014 23:59:59 CLS Outpatient PHILLY KENNY DO [id number] 05/04/2014 16:57:00 05/04/2014 23:59:59 CLS Outpatient PHILLY KENNY DO [id number] 04/30/2014 10:28:00 04/30/2014 23:59:59 CLS Outpatient TAE ARBOLEDA APRN [id number] 03/25/2014 16:09:00 03/25/2014 23:59:59 CLS Outpatient PHILLY KENNY DO [id number] 03/21/2014 09:35:00 03/21/2014 23:59:59 CLS Outpatient LIVE DIAZ APRN [id number] 03/21/2014 09:35:00 03/21/2014 23:59:59 CLS Outpatient LIVE DIAZ APRN [id number] 02/02/2014 08:58:00 02/02/2014 23:59:59 CLS Outpatient LIVE DIAZ APRN [id number] 12/16/2013 16:30:00 12/16/2013 23:59:59 CLS Outpatient LIVE DIAZ APRN [id number] 12/16/2013 16:30:00 12/16/2013 23:59:59 CLS Outpatient LIVE DIAZ APRN [id number] 12/12/2013 16:04:00 12/12/2013 23:59:59 CLS Outpatient LIVE DIAZ APRN [id number] 11/03/2013 15:38:00 11/03/2013 23:59:59 CLS Outpatient PHILLY KENNY DO [id number] 10/27/2013 11:41:00 10/27/2013 23:59:59 CLS Outpatient LIVE DIAZ APRN [id number] 10/23/2013 16:44:00 10/23/2013 23:59:59 CLS Outpatient LIVE DIAZ APRN [id number] 10/10/2013 10:42:00 10/10/2013 23:59:59 CLS Outpatient LIVE DIAZ APRN [id number] 10/10/2013 10:42:00 10/10/2013 23:59:59 CLS Outpatient LIVE DIAZ APRN [id number] 08/21/2013 10:23:00 08/21/2013 23:59:59 CLS Outpatient MILO LEMUS MD [id number] 08/09/2013 12:28:00 08/09/2013 23:59:59 CLS Outpatient LIVE DIAZ APRN [id number] 06/27/2013 08:22:00 06/27/2013 23:59:59 CLS Outpatient LIVE DIAZ APRN [id number] 12/16/2012 13:36:00 12/16/2012 23:59:59 CLS Outpatient ADÁN FARFAN MD [id number] 11/29/2012 08:56:00 11/29/2012 23:59:59 CLS Outpatient [id number] 11/01/2012 09:27:00 11/01/2012 23:59:59 CLS Outpatient [id number] 07/24/2012 14:01:00 07/24/2012 23:59:59 CLS Outpatient JOE JENNIFER LIVE Pascual [id number] 07/14/2013 14:17:00 Document Registration [id number] 06/27/2013 08:22:00 Document Registration [id number] 04/09/2013 09:13:00 Document Registration [id number] 04/09/2013 09:13:00 Document Registration [id number] 03/14/2013 12:36:00 Document Registration [id number] 02/20/2013 13:13:00 Document Registration [id number] 02/06/2019 18:49:00 02/06/2019 19:35:00 DIS Outpatient LIVE DILL DO [facility] ER FS NERVE PAIN IN LEFT LEG AND BACK [id number] 01/11/2019 09:18:00 01/11/2019 09:50:00 DIS Emergency SOHAIL MORALES MD [facility] ER FS LT LEG PAIN [id number] 01/11/2019 09:13:00 01/11/2019 09:13:00 CAN Preadmit SOHAIL MORALES MD [facility] ER FS LT LEG PAIN [id number] 07/09/2018 12:20:00 07/09/2018 23:59:59 CLS Inpatient RINKU MAURICIO MD [facility] 4TH HYPOXIA, FAILURE OF OUTPT TREATMENT OF BRONCHITIS [id number] 04/11/2018 13:10:00 04/11/2018 23:59:59 CLS Outpatient KORTNEY DOYLE DO [facility] CARD LUMBAR RADICULOPATHY [id number] 01/17/2018 12:48:00 01/17/2018 13:32:00 DIS Outpatient KORTNEY DOYLE DO [facility] CARD LUMBAR RADICULOPATHY [id number] 05/26/2014 12:44:00 05/26/2014 23:59:59 CLS Outpatient TAE ARBOLEDA APRN [facility] RAD RT BREAST NODULE [id number] 05/07/2014 15:29:00 05/07/2014 23:59:59 CLS Outpatient TAE ARBOLEDA BEAN SNIPPER [facility] RAD SCREENING [id number] 03/30/2014 12:59:00 03/30/2014 23:59:59 CLS Outpatient LIVE DIAZ [facility] RAD CERVICALGIA [id number] 03/26/2014 13:11:00 03/26/2014 14:40:00 DIS Emergency MIRELA HUANG [employer] [facility] ER NECK PAIN [id number] 02/10/2014 13:03:00 02/10/2014 23:59:59 CLS Outpatient LIVE DIAZ [facility] RAD LUMBAR RADICULOPATHY [id number] 10/31/2013 14:53:00 10/31/2013 23:59:59 CLS Outpatient LIVE DIAZ [facility] RAD THORACIC RADICULOPATHY [id number] 07/14/2013 07:59:00 10/01/2013 00:01:00 DIS Outpatient LEANDRA AMATO MD [facility] SURG RCR CELLULITIS [id number] 06/29/2013 10:15:00 07/02/2013 19:15:00 DIS Inpatient LEANDRA AMATO MD [facility] SURGICAL ABSCESS L FACIAL [id number] 03/12/2013 17:56:00 03/12/2013 23:59:59 CLS Outpatient [id number] 03/01/2013 22:30:00 03/02/2013 17:10:00 DIS Outpatient MILO LEMUS MD [facility] CATH CP [id number] 03/01/2013 19:18:00 03/01/2013 23:59:59 CLS Outpatient [id number] 01/14/2018 19:26:00 Document Registration
--- NOTE | 2019-03-04 11:00 | NUR ---
Pt has not disclosed the scripts for Hydrocodone 5/325 #84 on 02/24 or Cyclobenzaprine #90 on 02/07/[address] Flower.
[2019-03-04] MEDS ORDERED: DEXAMETHASONE 4 MG/ML SDV (DECADRON) IM STA (11:13)
--- NOTE | 2019-03-04 11:19 | ED Back Pain ---
General Chief Complaint: General Problems/Pain Stated Complaint: LT LEG & BACK PAIN Nursing Triage Note: Presents ambulatory to Ed reporting chronic reoccurance of sciatica down left leg without injury. Pt reports she is a Dr Rehman pt but was referred to pain specialist and cannot see again till 03/20/19. Pt has taken all prescribed home meds including Tylenol. No narcotics or steroids reported. Nursing Sepsis Screen: No Definite Risk Source of Information: Patient, Old Records, RN Notes Reviewed Exam Limitations: No Limitations History of Present Illness Date Seen by Provider: March 04, 2019 Time Seen by Provider: 11:00 Initial Comments Patient presents c/ c/o worsening of her chronic left sided Sciatica. Have actually seen her once myself for the same complaint. States her PCP has referred her to pain management for it but they can't get her in on 03/20/19. States she is taking APAP s/ relief. Timing/Duration: Constant, Getting Worse Severity: Severe Pain/Injury Location: Lower Extremity, Other (left buttock) Radiation: Lower Legs (left) Method of Injury: Unknown Modifying Factors: Worse With Movement Associated Symptoms: denies symptoms Allergies and Home Medications Allergies Coded Allergies: No Known Allergies (Verified Allergy, Unknown, 07/09/18) Home Medications Acetaminophen 500 Mg Tablet, 500-1,000 MG PO Q6H PRN for PAIN-MILD, (Reported) Albuterol Sulfate 2.5 Mg/3 Ml Vial.neb, 2.5 MG NEB Q4H PRN for SHORTNESS OF BREATH, (Reported) Benzonatate 100 Mg Capsule, 100 MG PO TID Prescribed by: JING STEPHENSON on 07/11/18 1040 Brexpiprazole 3 Mg Tablet, 3 MG PO HS, (Reported) Budesonide 3 Mg Capdr...er, 9 MG PO DAILY, (Reported) TAKES 3 (3MG) CAPSULES Budesonide/Formoterol Fumarate 10.2 Gm Hfa.aer.ad, 2 PUFF IH BID, (Reported) Cefdinir 300 Mg Capsule, 300 MG PO BID Prescribed by: JING STEPHENSON on 07/11/18 0955 D-Methorphan/Acetamin/Doxylamn 1 Each Capsule, 2 CAP PO Q6H PRN for COLD, ( Reported) D-Methorphan/PE/Acetaminophen 1 Each Capsule, 2 CAP PO Q4H PRN for COLD, ( Reported) Desvenlafaxine Succinate 100 Mg Tab.er.24h, 100 MG PO DAILY, (Reported) Diclofenac Sodium 75 Mg Tablet.dr, 75 MG PO BID, (Reported) Estradiol 1 Mg Tablet, 1 MG PO DAILY, (Reported) Furosemide 40 Mg Tablet, 40 MG PO DAILY PRN for SWELLING, (Reported) Gabapentin 300 Mg Capsule, 900 MG PO BID, (Reported) TAKES 3 (300MG) CAPSULES Hydrocodone/Acetaminophen 1 Each Tablet, 1 TAB PO Q6H PRN for PAIN-MODERATE, ( Reported) Hydrocodone/Acetaminophen 1 Each Tablet, 1 EACH PO Q6H PRN for BACK PAIN Prescribed by: LIVE DILL on 02/06/191910 Levofloxacin 750 Mg Tablet, 750 MG PO DAILY, (Reported) FILLED 7 DAY SUPPLY 07-07-18 Lisinopril/Hydrochlorothiazide 1 Each Tablet, 1 TAB PO DAILY, (Reported) Methylprednisolone 4 Mg Tab.ds.pk, 4 MG PO UD PER DOSE PACK INSTRUCTIONS Prescribed by: LIVE DILL on 03/04/191121 Multivitamin 1 Each Tablet, 1 TAB PO DAILY, (Reported) Phenylephrine/Dm/Acetaminop/GG 177 Ml Liquid, 20 ML PO Q4H PRN for COUGH, ( Reported) Potassium Chloride 10 Meq Capsule.er, 10 MEQ PO DAILY PRN for WHEN TAKING FUROSEMIDE, (Reported) Prednisone 10 Mg Tab.ds.pk, 10 MG PO DAILY Take 6 tabs(60mg)daily,decrease by 1 tab(10MG)daily. Prescribed by: JING STEPHENSON on 07/11/18 09 Prednisone 10 Mg Tab.ds.pk, 10 MG PO TID Take 6 tabs(60mg)daily,decrease by 1 tab(10MG)daily. Prescribed by: SOHAIL MORALES on 01/11/19 09 Prednisone 20 Mg Tab, 30 MG PO BID Take 3 tabs(60mg)daily, decrease by 1/2 tab(10mg)daily. Prescribed by: LIVE DILL on 02/06/191910 Simvastatin 40 Mg Tablet, 40 MG PO HS, (Reported) Patient Home Medication List Home Medication List Reviewed: Yes Review of Systems Constitutional: see HPI Musculoskeletal: see HPI, other (chronic LLE Sciatica) All Other Systems Reviewed Negative Unless Noted: Yes (Negative excepted noted.) Past Ddawwkh-Pomkfn-Ayifkg Hx Patient Social History Alcohol Use: Denies Use Recreational Drug Use: No Smoking Status: Current Everyday Smoker Type Used: Cigarettes Recent Foreign Travel: No Contact w/Someone Who Travel: No Recent Infectious Disease Expo: No Recent Hopitalizations: No Physical Abuse: No Sexual Abuse: No Mistreated: No Fear: No Immunizations Up To Date Tetanus Booster (TDap): Unknown PED Vaccines UTD: No Date of Pneumonia Vaccine: Jun 28, 2011 Seasonal Allergies Seasonal Allergies: No Past Medical History Surgeries: Yes (diskectomy; laminectomy) Respiratory: Yes Pneumonia Cardiac: Yes Hypertension Neurological: No Reproductive Disorders: No (HAS 3 GROWN CHILDREN) Female Reproductive Disorders: Denies Sexually Transmitted Disease: No HIV/AIDS: No Genitourinary: No Gastrointestinal: No Musculoskeletal: Yes Back Injury, Chronic Back Pain Endocrine: No HEENT: No Cancer: No Psychosocial: Yes Depression Integumentary: No Blood Disorders: No Adverse Reaction/Blood Tranf: No Family Medical History Arthritis Asthma Cardiovascular disease Colon cancer Completed stroke Hypertension Myocardial infarction Psychosocial problem Respiratory disorder No Pertinent Family Hx Physical Exam Vital Signs Vital Signs - First Documented 03/04/19 10:36 Temp 97.1 Pulse 84 Resp 20 B/P (MAP) 124/84 (97) Pulse Ox 97 O2 Delivery Room Air Capillary Refill : Less Than 3 Seconds Height, Weight, BMI Height: 5'5.00" Weight: 248lbs. 2.0oz. 112.826324aq; 38.5 BMI Method:Stated General Appearance: WD/WN, Mild Distress, Obese Cardiovascular: Regular Rate, Rhythm Respiratory: No Respiratory Distress Neurologic/Psychiatric: Alert, Oriented x3, No Motor/Sensory Deficits, Depressed Affect Skin: Warm/Dry Progress/Results/Core Measures Results/Orders My Orders Orders - LIVE DILL DO Dexamethasone Injection (Decadron Inject (03/04/19 11:13) Ketorolac Injection (Toradol Injection) (03/04/19 11:30) Vital Signs/I&O 03/04/19 03/04/19 10:36 12:00 Temp 97.1 98.5 Pulse 84 87 Resp 20 16 B/P (MAP) 124/84 (97) 159/83 (108) Pulse Ox 97 94 O2 Delivery Room Air Room Air Blood Pressure Mean: 97 Progress Progress Note : Progress Note Review of [facility] reveals she is getting monthly Hydrocodone prescriptions from Dr. Rehman. Appears to be getting more ED hopping. Departure Impression Primary Impression: Exacerbation of chronic sciatica Additional Impression: Suspected drug seeking behavior Disposition: 01 HOME, SELF-CARE Condition: Stable Departure-Patient Inst. Decision time for Depature: 11:16 Referrals: LOIS REHMAN MD (PCP/Family) Primary Care Physician Patient Instructions: Sciatica (DC) Add. Discharge Instructions: All discharge instructions reviewed with patient and/or family. Voiced understanding. WILL NEED TO CHECK WITH DR. REHMAN ABOUT INCREASING YOUR HYDROCODONE DOSAGE SINCE SHE IS THE ONE MONITORING YOUR NARCOTIC USE. IN MEANTIME, RECOMMEND TAKING 400 mg OF IBUPROFEN EVERY 4-6 HOURS IN ADDITION TO YOUR OTHER MEDS. Scripts Methylprednisolone (Medrol) 4 Mg Tab.ds.pk 4 MG PO UD for 6 Days, #21 PKG PER DOSE PACK INSTRUCTIONS Prov: LIVE DILL DO 03/04/19 LIVE DILL DO March 04, 2019 11:18
[2019-03-04] MEDS ORDERED: METH4TAB PO (11:22)
[2019-03-04] MEDS ORDERED: KETOROLAC 30 MG/ML VIAL IV ONE (11:30)
--- NOTE | 2019-03-04 11:30 | NUR ---
Pt out of room when staff available to administer meds.
--- NOTE | 2019-03-04 11:59 | NUR ---
Meds administered per Nga GARZA.
[2019-03-04 12:00] VITALS: BP 159/83
--- NOTE | 2019-03-04 12:00 | NUR ---
Pt dismissed per Nga at this time.
== END 2019-03-04 12:00 | disposition home or self-care (01) ==
LOC: EDUNIT# 10:24 → ER FS 10:25
DX: M54.42 Lumbago with sciatica, left side (principal); I10 Essential (primary) hypertension; F32.9 Major depressive disorder, single episode, unspecified; F17.210 Nicotine dependence, cigarettes, uncomplicated; Z79.52 Long term (current) use of systemic steroids; Z98.1 Arthrodesis status; Z87.01 Personal history of pneumonia (recurrent); Z82.49 Family history of ischemic heart disease and other diseases of the circulatory system; Z80.0 Family history of malignant neoplasm of digestive organs
CPT/HCPCS: 99284

== ENCOUNTER → 2019-07-22 | Outpatient (CLI) | payer MEDICARE, MEDICAID ==
[~2019-07-22] MED LIST changes: +METH4TAB PO
--- NOTE | 2019-07-22 10:07 | Diagnostic Imaging Report ---
INDICATION: Shortness of breath PA and lateral chest obtained At 9:39 a.m. and compared to 07/09/18. Heart is mildly enlarged. There is no focal infiltrate or pneumothorax or pleural fluid. IMPRESSION: Mild cardiomegaly with no acute process in the chest. Dictated by: Dictated on workstation # [id number]
== END ==
LOC: RAD FS 09:28
PROVIDERS: ATTEND Family Medicine
DX: I51.7 Cardiomegaly (principal)
CPT/HCPCS: 71046

== ENCOUNTER → 2019-08-06 | Outpatient (CLI) | payer MEDICARE ==
[~2019-08-06] MED LIST changes: +RT-ALBUTEROL SULF 2.5 MG/3 ML PRE-MIX VIAL INH ONE
== END ==
LOC: RT 15:44
PROVIDERS: ATTEND Nurse Practitioner Family
DX: J98.4 Other disorders of lung (principal)
CPT/HCPCS: 94060; 94726; 94729

== ENCOUNTER → 2019-08-07 | Outpatient (CLI) | payer MEDICAID, MEDICARE ==
[~2019-08-07] MED LIST changes: -RT-ALBUTEROL SULF 2.5 MG/3 ML PRE-MIX VIAL INH ONE
== END ==
LOC: CARD 08:52
PROVIDERS: ATTEND Family Medicine
DX: I34.0 Nonrheumatic mitral (valve) insufficiency (principal); I51.7 Cardiomegaly
CPT/HCPCS: 93306

== ENCOUNTER 2019-08-21 13:50 | Outpatient (CLI) | payer MEDICARE | END 2019-08-21 14:15 | disposition home or self-care (01) | LOC: SLEEP 13:50 | PROVIDERS: ATTEND Nurse Practitioner Family | DX: G47.33 Obstructive sleep apnea (adult) (pediatric) (principal); G47.10 Hypersomnia, unspecified ==

== ENCOUNTER 2019-09-02 12:22 | Outpatient (RCR) | payer MEDICARE | END 2019-10-14 08:58 | disposition home or self-care (01) | PROVIDERS: ATTEND Orthopaedic Surgery Orthopaedic Surgery of the Spine | DX: M54.5 Low back pain (principal); Z98.1 Arthrodesis status; W19.XXXD Unspecified fall, subsequent encounter ==

== ENCOUNTER 2019-09-09 07:19 | Emergency (ER) | payer MEDICARE ==
[~2019-09-09] VITALS: Ht 160 cm; Wt 106.0 kg
[2019-09-09 07:35] VITALS: BP 198/113
== END 2019-09-09 08:18 | disposition left against medical advice (07) ==
LOC: EDUNIT# 07:19 → ER 07:20
DX: M54.5 Low back pain (principal)
CPT/HCPCS: 99281

== ENCOUNTER → 2019-11-04 | Outpatient (CLI) | payer MEDICARE, MEDICAID ==
--- NOTE | 2019-11-04 16:06 | Diagnostic Imaging Report ---
INDICATION: Postmenopausal female. History of back fusion. COMPARISON: 12/20/2009. FINDINGS: AP Spine L1-L4: Not performed, back fusion. LT Hip Neck: [BMD (g/cm2): 0.784] [T-Score: -1.8] [Z-Score: -1.6] LT Hip Total: [BMD (g/cm2):0.970] [T-Score:-0.3] [Z-Score: -0.5] [BMD Previous: 0.929] [BMD % Change: 4.4] RT Hip Neck: [BMD (g/cm2):0.797] [T-Score:-1.7] [Z-Score:-1.5] RT Hip Total: [BMD (g/cm2):0.941] [T-score:-0.5] [Z-Score:-0.8] [BMD Previous:0.971] [BMD % Change:-3.1] *Indicates significant change from prior examination based on 95% confidence level. World Health Organization criteria for BMD interpretation classify patients as Normal (T-score at or above -1.0), Osteopenic (T-score between -1.0 and -2.5) or Osteoporotic (T-score at or below -2.5). LIMITATIONS AND MODIFICATION: None. FRACTURE RISK (FRAX SCORE): The ten year probability of (%): Major Osteoporotic Fracture: [6.0] Hip Fracture: [0.6] IMPRESSION: 1. Osteopenia (Low bone mass). 2. No statistically significant change in bone mineral density since prior examination. 3. See below National Osteoporosis Foundation guidelines on when to potentially initiate pharmacologic therapy. Based on the National Osteoporosis Foundation Guidelines, pharmacologic treatment should be initiated in any of the following, unless clinical conditions suggest otherwise: * Any patient with prior fragility fracture of the hip or vertebrae. A spine fracture indicates 5X risk for subsequent spine fracture and 2X risk for subsequent hip fracture. * Osteoporosis (T-score <-2.5). * Postmenopausal women and men age 50 and older with low bone mass/osteopenia (T-score between -1.0 and -2.5) by DXA and 10-year major osteoporotic fracture greater than 20% or a 10-year probability of hip fracture greater than 3%. These fracture risks are supplied above in the FRAX score, if applicable. * Clinician judgement and/or patient preferences may indicate treatment for people with 10-year fracture probabilities above or below these levels. Dictated by: Dictated on workstation # [id number]
== END ==
LOC: RAD 11:33
PROVIDERS: ATTEND Pediatrics
DX: M85.89 Other specified disorders of bone density and structure, multiple sites (principal); Z87.81 Personal history of (healed) traumatic fracture; Z78.0 Asymptomatic menopausal state; Z98.1 Arthrodesis status
CPT/HCPCS: 77080

== ENCOUNTER → 2020-03-04 | Outpatient (CLI) | payer MEDICARE, MEDICAID ==
[~2020-03-04] MED LIST changes: -HYDR-3812 PO; +LISI1TAB29 PO; -LISI1TAB6 PO; +SIMV40TA25 PO
--- NOTE | 2020-03-04 15:37 | Diagnostic Imaging Report ---
PROCEDURE: MRI lumbar spine. TECHNIQUE: Multiplanar, multisequence MRI of the lumbar spine was performed without contrast. INDICATION: Lower back pain. Increase in back pain. COMPARISON: 02/10/2014. FINDINGS: Patient is status post interval hemilaminectomy and posterior fusion of L3-L4. Bilateral interpedicular screws and posterior fusion rods are present. Evaluation of the integrity of the hardware is suboptimal given MR modality and metallic susceptibility artifact. Static alignment however is maintained. There is no significant anteroretrolisthesis. There is no evidence of jumped facets. Vertebral body heights are maintained. There is no acute fracture. Marrow signal is unremarkable. Intervertebral disc spacers are also noted at L3-L4 and appears to be in appropriate position. Intervertebral disc heights are otherwise well-maintained. Visualized portions of distal cord are unremarkable. Conus terminates at approximately the L1-L2 level. No abnormal intrathecal filling defects are seen. Pre and paravertebral soft tissue structures are unremarkable. Axial images demonstrate the following: L1-L2 and L2-L3: There is no large disc bulge or focal contusion. There is no significant spinal canal or neuroforaminal stenosis. L3-L4: Postsurgical changes as above. There is no significant spinal canal or neuroforaminal stenosis. L4-L5: There is bilateral facet arthropathy and mild ligamentum flavum laxity. There is however no significant spinal canal or neuroforaminal stenosis. L5-S1: There is no large disc bulge or focal protrusion. There is no significant spinal canal or neuroforaminal stenosis. IMPRESSION: 1. No significant spinal canal or neuroforaminal stenosis of the lumbar spine. 2. No acute fracture or dislocation. 3. Postsurgical changes of L3-L4 as described above. Evaluation integrity of hardware is suboptimal for reasons stated above, but static alignment of these levels is maintained. Dictated by: Dictated on workstation # [id number]
== END ==
LOC: RAD 14:25
PROVIDERS: ATTEND Orthopaedic Surgery Orthopaedic Surgery of the Spine
DX: M54.5 Low back pain (principal); Z98.1 Arthrodesis status
CPT/HCPCS: 72148

== ENCOUNTER 2020-03-11 09:13 | Outpatient (RCR) | payer MEDICARE, MEDICAID ==
[~2020-03-11] VITALS: Ht 160 cm; Wt 116.8 kg
[~2020-03-11 09:13] MED LIST changes: +LISI1TAB25 PO; +VILA40TA PO
== END 2020-03-11 16:27 | disposition home or self-care (01) ==
LOC: PREOP 09:13
PROVIDERS: ATTEND Surgery
DX: Z01.812 Encounter for preprocedural laboratory examination (principal); Z11.59 Encounter for screening for other viral diseases; Z86.010 Personal history of colon polyps; Z80.0 Family history of malignant neoplasm of digestive organs
CPT/HCPCS: 87635

== ENCOUNTER 2020-03-15 06:58 | Day surgery (SDC) | payer MEDICARE, MEDICAID ==
[~2020-03-15] VITALS: Ht 160 cm; Wt 116.8 kg
--- OUTSIDE RECORDS SUMMARY | 2020-03-15 07:02 | XMS REPORT ---
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 Name Role Phone LIVE DIAZ Unavailable PROBLEMS Type Condition ICD9-CM Code QTM45-NW Code Onset Dates Condition S tatus SNOMED Code Problem Major depressive disorder, recurrent episode, moderate deg ree F33.1 Active 39485006 Problem Mitral valve prolapse I34.1 Active 256542449 Problem Essential tremor G25.0 Active 609 496383 Problem Hx of fracture of left hip Z87.81 Act west 689663454 Problem Other chronic pain G89.29 Active 8 6497214 Problem Morbid obesity due to excess calories E66.01 Active 286378786 Problem Osteopenia of multiple sites M85.89 A ctive 780487268 Problem Back pain with history of spinal surgery M54.9 Active 263864919 Problem Acquired absence of both cervix and uterus Z90.710 Active 948127846 Problem Chronic obstructive pulmonary disease, unspecified COPD ty pe J44.9 Active 01427057 Problem Lumbago with sciatica, left side M54.42 Active 856044863 Problem Family history of colon cancer Z80.0 Active 087605292 Problem Hyperlipidemia, unspecified hyperlipidemia type E7 8.5 Active 66022098 Problem Colon cancer screening Z12.11 Active 790168519 Problem Post menopausal syndrome N95.1 Activ e 161957523 Problem Asymptomatic postprocedural ovarian failure E89.40 Active 065029257 ALLERGIES No Information ENCOUNTERS Encounter Location Date Diagnosis [facility] [address] [facility] [id number] [address] [place] [address] February, [facility] [address] [facility] [id number] [address] [place] [address] Jan, [facility] [address] [facility] [id number] [address] [place] [address] Jan, Major depressive disorder, r ecurrent episode, moderate degree F33.1 [facility] [address] [facility] [id number] [address] [place] [address] Jan, [facility] [address] [facility] [id number] [address] [place] [address] Jan, Lumbago with sciatica, left side M54.42 and Other chronic pain G89.29 [facility] [place] [id number] [place], [place] [id number] 2[address] Jan, [facility] [place] [address] [facility] [id number] [place] [address] Jan, Other chronic pain G89.29 [facility] [place] [id number] [place] [address] 2[address] Jan, [facility] [address] [facility] [id number] [address] [place] [address] Jan, Major depressive disorder, r ecurrent episode, moderate degree F33.1 [facility] [address] [facility] [id number] [address] [place] [address] Jan, [facility] [id number] [place] [address] Dec, Post menopausal syndrome N95.1 [facility] [place] [id number] [place] [address] Dec, Post menopausal syndrome N95.1 and Other chronic pain G89.29 [facility] [place] [id number] [place] [address] Dec, Post menopausal syndrome N95.1 and Acquired absence of both cervix and uterus Z90.710 [facility] [address] [facility] [id number] [address] [place], [place] [address] Dec, Major depressive disorder, r ecurrent episode, moderate degree F33.1 [facility] [place] [id number] [place] [address] Nov, Major depressive disorder, recurrent episode, moderate degree F33.1 ; Morbid obesity due to excess calories E66.01 ; Hyperlipidemia, unspecified hyperlipidemia type E78.5 ; Colon cancer screening Z12.11 and Hormone replacement therapy (postmenopausal) Z79.890 [facility] [place] [address] [facility] [id number] [place] [address] Nov, [facility] [place] [address] [facility] [id number] [place] [address] Nov, Lumbar radiculopathy, acute M54.16 [facility] [address] [facility] [id number] [place] [address] Nov, Other chronic pain G89.29 [facility] [place] [address] [facility] [id number] [place] [address] Nov, [facility] [address] [facility] [id number] [place] [address] Nov, Hyperlipidemia, unspecified hyperlipidemia type E78.5 [place] [address] [facility] [id number] [address] [place] [address] Nov, [place] [address] [facility] [id number] [address] [place] [address] Oct, Major depressive disorder, r ecurrent episode, moderate degree F33.1 [place] [address] [place] [id number] [address] [place] [address] Oct, Lumbar radiculopathy, acute M54.16 [place] [id number] [place] [address] 17 Oct, 2019 [place] [address] [facility] [id number] [address] [place] [address] 15 Oct, 2019 Back pain with history of sp inal surgery M54.9 ; Major depressive disorder, recurrent episode, moderate degree F33.1 ; Osteopenia of multiple sites M85.89 ; Easy bruising R23.8 ; Morbid obesity due to excess calories E66.01 ; Sore throat J02.9 ; Cough R05 ; Therapeutic drug monitoring Z51.81 and Severe back pain M54.9 [place] [address] [facility] [id number] [address] [place] [address] Oct, Major depressive disorder, r ecurrent episode, moderate degree F33.1 [facility] [address] [facility] [id number] [address] [place] [address] Sep, Lumbar radiculopathy, acute M54.16 [place] [address] [facility] [id number] [address] [place] [address] Sep, [facility] [address] [facility] [id number] [address] [place] [address] Sep, Laryngitis J04.0 ; Asymptoma tic menopausal state Z78.0 and Hx of fracture of left hip Z87.81 [facility] [address] [facility] [id number] [address] [place] [address] Sep, Major depressive disorder, r ecurrent episode, moderate degree F33.1 [place] [address] [facility] [id number] [address] [place] [address] Sep, [facility] [address] [facility] [id number] [address] [place] [address] Aug, [place] [address] [facility] [id number] [address] [place] [address] Aug, [place] [address] [facility] [id number] [address] [place] [address] Aug, Family history of colon canc er Z80.0 ; Chronic obstructive pulmonary disease, unspecified COPD type J44.9 ; Essential tremor G25.0 ; Mitral valve prolapse I34.1 ; Other chronic pain G89.29 ; Hx of fracture of left hip Z87.81 and Encounter for immunization Z23 [facility] [address] [facility] [id number] [address] [place] [address] Aug, Major depressive disorder, r ecurrent episode, moderate degree F33.[id number], [place] [address] Aug, Muscle spasm M62.838 ; Sever e back pain M54.9 and Hx of spinal surgery Z98.890 [facility] [place] [address] [id number], [place] [address] Aug, [facility] [address] [facility] [id number] [place] [address] Aug, Sore throat J02.9 ; Cough R05 and Viral upper respiratory illness J06.9 [facility] [address] [facility] [id number] [address] [place] [address] Aug, Major depressive disorder, r ecurrent episode, moderate degree F33.1 [facility] [place] [address] [id number], [place] [address] Jul, [address] [id number], [place] [address] Jul, [facility] [place] [address] [id number], [place] [address] Jul, [address] [id number], [place] [address] Jul, [facility] [address] [facility] [id number] [address] [place] [address] Jul, Major depressive disorder, r ecurrent episode, moderate degree F33.1 [facility] [address] [facility] [id number] [address] [place] [address] Jul, [address] [id number], [place] [address] Jul, [facility] [address] [facility] [id number] [address] [place] [address] Jul, Encounter for immunization Z 23 [facility] [place] [address] [id number], [place] [address] Jul, Restrictive airway disease J 98.4 [facility] [place] [address] 340[address] [id number], [place] [address] Jul, Screening for breast cancer Z12.39 [facility] [address] [id number] [address] [place] [address] Jul, Major depressive disorder, r ecurrent episode, moderate degree F33.1 [facility] [place] [address] 340[address] [id number] [place] [address] Jun, [facility] [place] [address] 340[address] [id number] [place] [address] Jun, [facility] [place] [address] 340[address] [id number] [place] [address] Jun, Shortness of breath R06.02 [facility] [place] [address] 340[address] [id number], [place] [address] Jun, Shortness of breath R06.02 [facility] [place] [address] 340[address] [id number] [place] [address] Jun, Shortness of breath R06.02 a nd Restrictive lung disease J98.4 [facility] [address] [id number] [address] [place] [address] Jun, Major depressive disorder, r ecurrent episode, moderate degree F33.1 [facility] [place] [address] 340[address] [id number], [place] [address] Jun, [facility] [address] [facility] [id number] [address] [place] [address] Jun, History of tobacco use Z87.8 91 ; Screening for breast cancer Z12.39 and Trigger point M79.10 [facility] [place] [address] 340[address] [id number] [place] [address] Jun, [address] [id number], [place] [address] 10 Jun, 2019 Major depressive disorder, r ecurrent episode, moderate degree F33.1 ; Trigger point M79.10 ; History of tobacco use Z87.891 and Screening for breast cancer Z12.39 [facility] [address] [facility] [id number] [address] [place] [address] Jun, Major depressive disorder, r ecurrent episode, moderate degree F33.1 [facility] [address] [facility] [id number] [address] [place] [address] May, Major depressive disorder, r ecurrent episode, moderate degree F33.1 [facility] [place] [address] 340[address] [id number] [place] [address] May, Essential tremor G25.0 ; Can dida rash of groin B37.89 and History of hypertension Z86.79 [facility] [address] 340[address] [id number] [place] [address] May, [facility] [address] 340[place] [id number], [place] [address] May, [facility] [address] [facility] [id number] [address] [place] [address] May, Major depressive disorder, r ecurrent episode, moderate degree F33.1 [facility] [address] 340[address] [id number] [place] [address] Apr, [facility] [place] [address] [facility] [id number] [place] [address] Apr, [facility] [address] [id number] [place] [address] Mar, [facility] [place] [address] 340[address] [id number] [place] [address] Mar, [facility] [address] 340[address] [id number] [place] [address] Mar, [facility] [address] 340[address] [id number] [place] [address] Mar, [facility] [address] 340[address] [id number] [place] [address] Mar, [facility] [place] [address] [facility] [id number] [place] [address] Mar, Spinal stenosis of lumbar region without neurogenic claudication M48.061 [facility] [place] [address] [id number] [place] [address] Mar, Therapeutic drug monitoring Z51.81 [facility] [place] [facility] [address] [id number] [place] [address] February, Therapeutic drug monitoring Z51.81 [facility] [place] [facility] [address] [id number] [place] [address] Jan, [facility] [place] [facility] [address] [id number] [place] [address] Jan, [facility] [place] [facility] [address] [id number] [place] [address] Jan, [facility] [place] [facility] [address] [place] [address] [address] [id number] [place] [address] Dec, [facility] [place] [facility] [address] [place] [address] [address] [id number] [place] [address] Dec, [facility] [place] [facility] [address] [place] [address] [address] [id number] [place] [address] Dec, [facility] [place] [facility] [address] [place] [address] [address] [id number] [place] [address] Nov, [facility] [place] [facility] [address] [place] [address] [address] [id number] [place] [address] Nov, [facility] [address] [id number] [address] [place] [id number] Sep, Dental examination Z01.20 [facility] [address] [id number] [address] [place] [address] [id number] 10 Jun, 2015 Dental examination V72.2 [facility] [address] [id number] [address] [place] [address] Jan, [facility] [address] [id number] [address] [place] [address] Jan, [facility] [address] [id number] [address] [place] [address], [place] [address] Oct, [facility] [address] [id number] [address] [place] [address], [place] [address] Oct, [facility] [address] [id number] [address] [place] [address], [place] [address] Jul, [facility] [address] [id number] [address] [place] [address], [place] [address] Jul, [facility] [address] [id number] [address] [place] [address], [place] [address] Jun, [facility] [address] [id number] [address] [place] [address], [place] [address] Jun, [facility] [address] [id number] [address] [place] [address], [place] [address] May, [facility] [address] [id number] [address] [place] [address], [place] [address] May, [facility] [address] [id number] [address] [place] [address], [place] [address] May, [facility] [address] [id number] [address] [place] [address], [place] [address] May, [facility] [address] [id number] [address] [place] [address], [place] [address] May, [facility] [address] [id number] [address] [place] [address], [place] [address] May, [facility] [address] [id number] [address] [place] [address], [place] [address] May, [facility] [address] [id number] [address] [place] [address], [place] [address] May, [facility] [address] [id number] [address] [place] [address], [place] [address] Apr, [facility] [address] [id number] [address] [place] [address], [place] [address] Apr, [facility] [address] [id number] [address] [place] [address], [place] [address] 16 Apr, 2013 [facility] [address] [id number] [address] [place] [address], [place] [address] 16 Apr, 2013 [facility] [address] [id number] [address] [place] [address], [place] [address] 16 Apr, 2013 [facility] [address] [id number] [address] [place] [address], [place] [address] Apr, 2013 [facility] [address] [id number] [address] [place] [address], [place] [address] 15 Apr, 2013 [facility] [address] [id number] [address] [place] [address], [place] [address] Apr, 2013 [facility] [address] [id number] [address] [place] [address], [place] [address] Apr, 2013 [facility] [address] [id number] [address] [place] [address], [place] [address] Apr, 2013 [facility] [address] [id number] [address] [place] [address], [place] [address] Apr, 2013 [facility] [address] [id number] [address] [place] [address], [place] [address] 05 Apr, 2013 [facility] [address] [id number] [address] [place] [address], [place] [address] Apr, 2013 [facility] [address] [id number] [address] [place] [address], [place] [address] Apr, 2013 [facility] [address] [id number] [address] [place] [address], [place] [address] Apr, 2013 [facility] [address] [id number] [address] [place] [address], [place] [address] Apr, 2013 [facility] [address] [id number] [address] [place] [address], [place] [address] Apr, 2013 [facility] [address] [id number] [address] [place] [address], [place] [address] Mar, [facility] [address] [id number] [address] [place] [address], [place] [address] Mar, [facility] [address] [id number] [address] [place] [address], [place] [address] Mar, [facility] [address] [id number] [address] [place] [address], [place] [address] Mar, [facility] [address] [id number] [address] [place] [address], [place] [address] Mar, [facility] [address] [id number] [address] [place] [address], [place] [address] Mar, [facility] [address] [id number] [address] [place] [address], [place] [address] Mar, [facility] [address] [id number] [address] [place] [address], [place] [address] Mar, [facility] [address] [id number] [address] [place] [address], [place] [address] Mar, [facility] [address] [id number] [address] [place] [address], [place] [address] Mar, [facility] [address] [id number] [address] [place] [address], [place] [address] Mar, [facility] [address] [id number] [address] [place] [address], [place] [address] Mar, [facility] [address] [id number] [address] [place] [address], [place] [address] February, [facility] [address] [id number] [address] [place] [address], [place] [address] February, [facility] [address] [id number] [address] [place] [address], [place] [address] February, [facility] [address] [id number] [address] [place] [address], [place] [address] February, [facility] [address] [id number] [address] [place] [address], [place] [address] February, [facility] [address] [id number] [address] [place] [address], [place] [address] February, [facility] [address] [id number] [address] [place] [address], [place] [address] February, [facility] [address] [id number] [address] [place] [address], [place] [address] February, [facility] [address] [id number] [address] [place] [address], [place] [address] February, [facility] [address] [id number] [address] [place] [address], [place] [address] February, [facility] [address] [id number] [address] [place] [address], [place] [address] February, [facility] [address] [id number] [address] [place] [address], [place] [address] February, [facility] [address] [id number] [address] [place] [address], [place] [address] Jan, [facility] [address] [id number] [address] [place] [address], [place] [address] Jan, [facility] [address] [id number] [address] [place] [address], [place] [address] Jan, [facility] [address] [id number] [address] [place] [address], [place] [address] Jan, [facility] [address] [id number] [address] [place] [address], [place] [address] Jan, [facility] [address] [id number] [address] [place] [address], [place] [address] Jan, [facility] [address] [id number] [address] [place] [address], [place] [address] Dec, [facility] [address] [id number] [address] [place] [address], [place] [address] Dec, [facility] [address] [id number] [facility] [place] [address] Dec, [facility] [address] [id number] [address] [place] [address], [place] [address] Dec, [facility] [address] [id number] [address] [place] [address], [place] [address] Dec, [facility] [address] [id number] [address] [place] [address], [place] [address] Dec, [facility] [address] [id number] [address] [place] [address], [place] [address] Nov, [facility] [address] [id number] [address] [place] [address], [place] [address] Nov, [facility] [address] [id number] [address] [place] [address], [place] [address] Nov, [facility] [address] [id number] [address] [place] [address], [place] [address] Nov, [facility] [address] [id number] [address] [place] [address], [place] [address] Oct, [facility] [address] [id number] [address] [place] [address], [place] [address] Oct, [facility] [address] [id number] [address] [place] [address], [place] [address] Oct, [facility] [address] [id number] [address] [place] [address], [place] [address] Oct, [facility] [address] [id number] [address] [place] [address], [place] [address] Oct, [facility] [address] [id number] [address] [place] [address], [place] [address] Oct, [facility] [address] [id number] [address] [place] [address], [place] [address] Oct, [facility] [address] [id number] [address] [place] [address], [place] [address] Oct, [facility] [address] [id number] [address] [place] [address], [place] [address] Oct, [facility] [address] [id number] [address] [place] [address], [place] [address] 30 Sep, 2013 [facility] [facility] [address] [id number] [address] [place] [address], [place] [address] 30 Sep, 2013 [facility] [address] [id number] [address] [place] [address], [place] [address] Sep, [facility] [address] [id number] [address] [place] [address], [place] [address] Sep, [facility] [address] [id number] [address] [place] [address], [place] [address] 16 Sep, 2013 [facility] [address] [id number] [address] [place] [address], [place] [address] Sep, [facility] [address] [id number] [address] [place] [address], [place] [address] Sep, [facility] [address] [id number] [address] [place] [address], [place] [address] Aug, [facility] [address] [id number] [address] [place] [address], [place] [address] Aug, [facility] [address] [id number] [address] [place] [address], [place] [address] 28 Jul, 2013 [facility] [address] [id number] [address] [place] [address], [place] [address] 28 Jul, 2013 [facility] [address] [id number] [address] [place] [address], [place] [address] 14 Jul, 2013 [facility] [address] [id number] [address] [place] [address], [place] [address] 14 Jul, 2013 [facility] [address] [id number] [address] [place] [address], [place] [address] Jul, [facility] [address] [id number] [address] [place] [address], [place] [address] Jul, [facility] [address] [id number] [address] [place] [address], [place] [address] 25 Jun, 2013 [facility] [address] [id number] [address] [place] [address], [place] [address] 16 Jun, 2013 [facility] [address] [id number] [address] [place] [address], [place] [address] Jun, [facility] [address] [id number] [address] [place] [address], [place] [address] May, [facility] [address] [id number] [address] [place] [address], [place] [address] May, [facility] [address] [id number] [address] [place] [address], [place] [address] Apr, [facility] [address] [id number] [address] [place] [address], [place] [address] Apr, [facility] [address] [id number] [address] [place] [address], [place] [address] Apr, [facility] [address] [id number] [address] [place] [address], [place] [address] Mar, [facility] [address] [id number] [address] [place] [address], [place] [address] Mar, [facility] [address] [id number] [address] [place] [address], [place] [address] February, [facility] [address] [id number] [address] [place] [address], [place] [address] February, [facility] [address] [id number] [address] [place] [address], [place] [address] Jan, [facility] [address] [id number] [address] [place] [address], [place] [address] Jan, [facility] [address] [id number] [address] [place] [address], [place] [address] Dec, [facility] [address] [id number] [address] [place] [address], [place] [address] Nov, [facility] [address] [id number] [address] [place] [address], [place] [address] Nov, [facility] [address] [id number] [address] [place] [address], [place] [address] Nov, [facility] [address] [id number] [address] [place] [address], [place] [address] Oct, [facility] [address] [id number] [address] [place] [address], [place] [address] Aug, [facility] [address] [id number] [address] [place] [address], [place] [address] Aug, [facility] [address] [id number] [address] [place] [address], [place] [address] Aug, [facility] [address] [id number] [address] [place] [address], [place] [address] Aug, [facility] [address] [id number] [address] [place] [address], [place] [address] 26 Jun, 2012 [facility] [address] [id number] [address] [place] [address], [place] [address] 10 Jun, 2012 [facility] [address] [id number] [address] [place] [address], [place] [address] 08 Jun, 2012 [facility] [address] [id number] [address] [place] [address], [place] [address] 07 Jun, 2012 [facility] [address] [id number] [address] [place] [address], [place] [address] 05 Jun, 2012 [facility] [address] [id number] [address] [place] [address], [place] [address] 31 May, 2012 [facility] [address] [id number] [address] [place] [address], [place] [address] 14 May, 2012 [facility] [address] [id number] [address] [place] [address], [place] [address] May, [facility] [address] [id number] [address] [place] [address], [place] [address] May, [facility] [address] [id number] [address] [place] [address], [place] [address] Mar, [facility] [address] [id number] [address] [place] [address], [place] [address] Mar, [facility] [address] [id number] [address] [place] [address], [place] [address] February, [facility] [address] [id number] [address] [place] [address], [place] [address] February, [facility] [address] [id number] [address] [place] [address], [place] [address] Jan, [facility] [address] [id number] [address] [place] [address], [place] [address] Jan, [facility] [address] [id number] [address] [place] [address], [place] [address] Jan, [facility] [address] [id number] [address] [place] [address], [place] [address] Jan, [facility] [address] [id number] [address] [place] [address], [place] [address] Jan, [facility] [address] [id number] [address] [place] [address], [place] [address] Nov, [facility] [address] [id number] [address] [place] [address], [place] [address] 15 Nov, 2011 [facility] [address] [id number] [address] [place] [address], [place] [address] Nov, [facility] [address] [id number] [address] [place] [address], [place] [address] Oct, [facility] [address] [id number] [address] [place] [address] Sep, [facility] [address] [id number] [address] [place] [address] Sep, [facility] [address] [id number] [address] [place] [address] Sep, [facility] [address] [id number] [address] [place] [address] Aug, [facility] [address] [id number] [address] [place] [address] Aug, [facility] [address] [id number] [address] [place] [address] Jul, [facility] [address] [id number] [address] [place] [address] Jul, [facility] [address] [id number] [address] [place] [address] Jun, [facility] [address] [id number] [address] [place] [address] Nov, [facility] [address] [id number] [address] [place] [address] Aug, [facility] [address] [id number] [address] [place] [address] Mar, [facility] [address] [id number] [address] [place] [address] Nov, IMMUNIZATIONS No Known Immunizations SOCIAL HISTORY Never Assessed REASON FOR VISIT PLAN OF CARE VITAL SIGNS MEDICATIONS Unknown Medications RESULTS No Results PROCEDURES No Known procedures INSTRUCTIONS MEDICATIONS ADMINISTERED No Known Medications MEDICAL (GENERAL) HISTORY Type Description Date Medical History neck pain Medical History Hypertension Medical History hyperlipidemia Medical History Nerve pain Surgical History Spinal surgery (fusion) - [place] 04/14/19 Surgical History hysterectomy - TVH/BSO; appendectomy don e at the same time Surgical History Laminectomy/discetomy 2005 Surgical History cholecystectomy Surgical History facial surgery- MRSA I&D Surgical History Back surgery 04/14/19 Hospitalization History Surgery(s) only Hospitalization History childbirth only Hospitalization History COPD 07/09/18
--- OUTSIDE RECORDS SUMMARY | 2020-03-15 07:02 | XMS REPORT ---
Author Author Marleny DIAZ Organization [facility] Address [address] [place] [address] Care Team Providers Care Associate Director Qa Name Role Phone LIVE DIAZ Unavailable PROBLEMS Type Condition ICD9-CM Code [id number] Code Onset Dates Condition S tatus SNOMED Code Problem Essential tremor G25.0 Active 609 191578 Problem Major depressive disorder, recurrent episode, moderate deg ree F33.1 Active 39147906 Problem Mitral valve prolapse I34.1 Active 309545976 Problem Hx of fracture of left hip Z87.81 Act west 886939784 Problem Chronic obstructive pulmonary disease, unspecified COPD ty pe J44.9 Active 30854241 Problem Morbid obesity due to excess calories E66.01 Active 106234265 Problem Osteopenia of multiple sites M85.89 A ctive 205380279 Problem Acquired absence of both cervix and uterus Z90.710 Active 475310785 Problem Family history of colon cancer Z80.0 Active 018425716 Problem Asymptomatic postprocedural ovarian failure E89.40 Active 308376821 Problem Other chronic pain G89.29 Active 8 1819725 Problem Back pain with history of spinal surgery M54.9 Active 234226308 Problem Hyperlipidemia, unspecified hyperlipidemia type E7 8.5 Active 53665034 Problem Colon cancer screening Z12.11 Active 688934759 Problem Post menopausal syndrome N95.1 Activ e [id number] ALLERGIES No Information ENCOUNTERS Encounter Location Date Diagnosis [facility] [address] [facility] [id number] [address] [place] [address] February, [facility] [address] [facility] [id number] [address] [place] [address] Jan, [facility] [address] [facility] [id number] [place] [address] Jan, [facility] [address] [facility] [id number] [address] [place] [address] Jan, Major depressive disorder, r ecurrent episode, moderate degree F33.1 [facility] [address] [facility] [id number] [address] [place] [address] Jan, [facility] [place] [id number] [address] Dec, Post menopausal syndrome N95.1 [facility] [place] [address] [place] [id number] [place] [address] Dec, Post menopausal syndrome N95.1 and Other chronic pain G89.29 [facility] [place] [address] [address], Post menopausal syndrome N95.1 and Acquired absence of both cervix and uterus Z90.710 [facility] [address] [place] [id number] [address] [place] [address] Dec, Major depressive disorder, r ecurrent episode, moderate degree F33.1 [facility] [place] [address] [address] Nov, Major depressive disorder, recurrent episode, moderate degree F33.1 ; Morbid obesity due to excess calories E66.01 ; Hyperlipidemia, unspecified hyperlipidemia type E78.5 ; Colon cancer screening Z12.11 and Hormone replacement therapy (postmenopausal) Z79.890 [facility] [address]65[address], [place] [address] Nov, [facility] [place] [address]65[address] [id number] [address] Nov, Lumbar radiculopathy, acute M54.16 [facility] [place] [address] [place] [id number] [address] Nov, Other chronic pain G89.29 [facility] [place] [address] [address] Nov, [facility] [place] [address] [id number] [address] Nov, Hyperlipidemia, unspecified hyperlipidemia type E78.5 [place] [address] [id number] [address] [place] [address] 12 Nov, 2019 [place] [address] [id number] [address] [place] [address] Oct, Major depressive disorder, r ecurrent episode, moderate degree F33.1 [place] [address] [id number] [address] [place] [address] Oct, Lumbar radiculopathy, acute M54.16 [place] [address] [id number] [address] [place] [address] 17 Oct, 2019 [place] [address] [facility] [id number] [address] [place] [address] 15 Oct, 2019 Back pain with history of sp inal surgery M54.9 ; Major depressive disorder, recurrent episode, moderate degree F33.1 ; Osteopenia of multiple sites M85.89 ; Easy bruising R23.8 ; Morbid obesity due to excess calories E66.01 ; Sore throat J02.9 ; Cough R05 ; Therapeutic drug monitoring Z51.81 and Severe back pain M54.9 [place] [address] [facility] [id number] [address] [place] [address] Oct, Major depressive disorder, r ecurrent episode, moderate degree F33.1 [place] [address] [facility] [id number] [address] [place] [address] Sep, Lumbar radiculopathy, acute M54.16 [place] [address] [id number] [address] [place] [address] Sep, [place] [address] [id number] [address] [place] [address] Sep, Laryngitis J04.0 ; Asymptoma tic menopausal state Z78.0 and Hx of fracture of left hip Z87.81 [place] [address] [id number] [address] [place] [address] Sep, Major depressive disorder, r ecurrent episode, moderate degree F33.1 [facility] [address] [facility] [id number] [address] [place] [address] Sep, [facility] [address] [facility] [id number] [address] [place] [address] Aug, [facility] [address] [facility] [id number] [address] [place] [address] Aug, [facility] [address] [facility] [id number] [address] [place] [address] Aug, Family history of colon canc er Z80.0 ; Chronic obstructive pulmonary disease, unspecified COPD type J44.9 ; Essential tremor G25.0 ; Mitral valve prolapse I34.1 ; Other chronic pain G89.29 ; Hx of fracture of left hip Z87.81 and Encounter for immunization Z23 [facility] [address] [facility] [id number] [address] [place] [address] Aug, Major depressive disorder, r ecurrent episode, moderate degree F33.[address] [id number], [place] [address] Aug, Muscle spasm M62.838 ; Sever e back pain M54.9 and Hx of spinal surgery Z98.[address] 340 [id number], [place] [address] Aug, [facility] [address] [facility] [id number] [place] [address] Aug, Sore throat J02.9 ; Cough R05 and Viral upper respiratory illness J06.9 [facility] [address] [facility] [id number] [address] [place] [address] Aug, Major depressive disorder, r ecurrent episode, moderate degree F33.[address] [place] [id number], [place] [address] Jul, [address] [place] [id number], [place] [address] Jul, [address] [id number] [place] [address] Jul, [facility] [place] [address] 340[address] [id number] [place] [address] Jul, [facility] [address] [id number] [place] [address] Jul, Major depressive disorder, r ecurrent episode, moderate degree F33.1 [facility] [address] [id number] [address] [place] [address] Jul, [address] [id number], [place] [address] Jul, [facility] [address] [facility] [id number] [address] [place] [address] Jul, Encounter for immunization Z 23 [facility] [place] [address] [place] [id number], [place] [address] Jul, Restrictive airway disease J 98.[address] 340[place] [id number], [place] [address] Jul, Screening for breast cancer Z12.39 [facility] [address] [facility] [id number] [address] [place] [address] Jul, Major depressive disorder, r ecurrent episode, moderate degree F33.1 [facility] [place] [address] 340[place] [id number], [place] [address] Jun, [facility] [place] [address] 340[place] [id number], [place] [address] Jun, [address] 340[place] [id number], [place] [address] Jun, Shortness of breath R06.02 [facility] [place] [address] 340[place] [id number], [place] [address] Jun, Shortness of breath R06.02 [facility] [place] [address] 340B [id number], [place] [address] Jun, Shortness of breath R06.02 a nd Restrictive lung disease J98.4 [facility] [address] [facility] [id number] [address] [place] [address] Jun, Major depressive disorder, r ecurrent episode, moderate degree F33.[address] 340 [id number], [place] [address] Jun, [facility] [address] [facility] [id number] [address] [place] [address] 18 Jun, 2019 History of tobacco use Z87.8 91 ; Screening for breast cancer Z12.39 and Trigger point M79.[address] 340 [id number], [place] [address] Jun, [address] [id number], [place] [address] Jun, Major depressive disorder, r ecurrent episode, moderate degree F33.1 ; Trigger point M79.10 ; History of tobacco use Z87.891 and Screening for breast cancer Z12.39 [place] [address] [facility] [id number] [address] [place] [address] Jun, Major depressive disorder, r ecurrent episode, moderate degree F33.1 [place] [address] [facility] [id number] [address] [place] [address] May, Major depressive disorder, r ecurrent episode, moderate degree F33.[address] 340 [id number], [place] [address] May, Essential tremor G25.0 ; Can dida rash of groin B37.89 and History of hypertension Z86.[address] 340 [id number], [place] [address] May, [address] 340 [id number], [place] [address] May, [place] [address] [facility] [id number] [address] [place] [address] May, Major depressive disorder, r ecurrent episode, moderate degree F33.1 [facility] [place] [facility] [address] [place], [place] [address]VD 340B [id number] [place] [address] Apr, [facility] [place] [address] [facility] [id number] [place] [address] Apr, [facility] [address] [id number] [place] [address] Mar, [facility] [facility] [address] [place], [place] [address]VD 340B [id number] [place] [address] Mar, [facility] [place] [facility] [address] [id number] [place] [address] Mar, [facility] [place] [address] [id number] [place] [address] Mar, [facility] [place] [facility] [address] [id number] [place] [address] Mar, [facility] [place] [address] [facility] [id number] [place] [address] Mar, Spinal stenosis of lumbar region without neurogenic claudication M48.061 [facility] [place] [address] [facility] [id number] [place] [address] Mar, Therapeutic drug monitoring Z51.81 [facility] [place] [facility] [address] [id number] [place] [address] February, Therapeutic drug monitoring Z51.81 [facility] [place] [facility] [address] [place] [address] [address] 340B [id number] [place] [address] Jan, [facility] [place] [address] [id number] [place] [address] Jan, [facility] [place] [address] 340B [id number] [place] [address] Jan, [facility] [place] [facility] [address] [id number] [place] [address] Dec, [facility] [facility] [address] [place], [place] [address]VD 340B [id number] [place] [address] Dec, [facility] [place] [facility] [facility] [address] [place], [place] [address]VD 340B [id number] [place] [address] Dec, [facility] [place] [address] [id number] [place] [address] Nov, [facility] [place] [address] [id number] [place] [address] Nov, [facility] [address] [id number] [place] [id number] Sep, Dental examination Z01.20 [facility] [address] [id number] [address] [place] [id number] 10 Jun, 2015 Dental examination V72.2 [facility] [address] [id number] [address] [place] [address] Jan, [facility] [address] [id number] [address] [place] [address] Jan, [facility] [address] [id number] [address] [place] [address] Oct, [facility] [address] [id number] [address] [place] [address] Oct, [facility] [address] [id number] [address] [place] [address] Jul, [facility] [address] [id number] [address] [place] [address] Jul, [facility] [address] [id number] [address] [place] [address] Jun, [facility] [address] [id number] [address] [place] [address] Jun, [facility] [address] [id number] [address] [place] [address] May, [facility] [address] [id number] [facility] [address] May, 2013 [facility] [address] [id number] [facility] [address] May, [facility] [address] [id number] [facility] [address] May, [facility] [address] [id number] [facility] [address] May, [facility] [address] [id number] [facility] [address] May, [facility] [address] [id number] [facility] [address] May, [facility] [address] [id number] [address] [place] [address], [place] [address] May, [facility] [address] [id number] [address] [place] [address], [place] [address] Apr, [facility] [address] [id number] [address] [place] [address], [place] [address] Apr, [facility] [address] [id number] [address] [place] [address], [place] [address] Apr, [facility] [address] [id number] [address] [place] [address], [place] [address] Apr, [facility] [address] [id number] [address] [place] [address], [place] [address] Apr, [facility] [address] [id number] [address] [place] [address], [place] [address] 16 Apr, 2014 [facility] [address] [id number] [address] [place] [address], [place] [address] Apr, [facility] [address] [id number] [address] [place] [address], [place] [address] 15 Apr, 2014 [facility] [address] [id number] [address] [place] [address], [place] [address] Apr, 2013 [facility] [address] [id number] [facility] [address] Apr, 2013 [facility] [address] [id number] [facility] [address] Apr, 2013 [facility] [address] [id number] [facility] [address] Apr, 2013 [facility] [address] [id number] [address] [place] [address], [place] [address] Apr, 2013 [facility] [address] [id number] [address] [place] [address], [place] [address] Apr, [facility] [address] [id number] [address] [place] [address], [place] [address] Apr, [facility] [address] [id number] [address] [place] [address], [place] [address] Apr, [facility] [address] [id number] [address] [place] [address], [place] [address] Apr, [facility] [address] [id number] [address] [place] [address], [place] [address] Mar, [facility] [address] [id number] [address] [place] [address], [place] [address] Mar, [facility] [address] [id number] [address] [place] [address], [place] [address] Mar, [facility] [address] [id number] [address] [place] [address], [place] [address] Mar, [facility] [address] [id number] [address] [place] [address], [place] [address] Mar, [facility] [address] [id number] [address] [place] [address], [place] [address] Mar, [facility] [address] [id number] [address] [place] [address], [place] [address] Mar, [facility] [address] [id number] [facility] [address] Mar, [facility] [address] [id number] [address] [place] [address], [place] [address] Mar, [facility] [address] [id number] [address] [place] [address], [place] [address] Mar, [facility] [address] [id number] [address] [place] [address], [place] [address] Mar, [facility] [address] [id number] [address] [place] [address], [place] [address] Mar, [facility] [address] [id number] [address] [place] [address], [place] [address] February, [facility] [address] [id number] [address] [place] [address], [place] [address] February, [facility] [address] [id number] [address] [place] [address], [place] [address] February, [facility] [address] [id number] [address] [place] [address], [place] [address] February, [facility] [address] [id number] [address] [place] [address], [place] [address] February, [facility] [address] [id number] [address] [place] [address], [place] [address] February, [facility] [address] [id number] [address] [place] [address], [place] [address] February, [facility] [address] [id number] [address] [place] [address], [place] [address] February, [facility] [address] [id number] [address] [place] [address], [place] [address] February, [facility] [address] [id number] [address] [place] [address], [place] [address] February, [facility] [address] [id number] [address] [place] [address], [place] [address] February, [facility] [address] [id number] [address] [place] [address], [place] [address] February, [facility] [address] [id number] [address] [place] [address], [place] [address] Jan, [facility] [address] [id number] [address] [place] [address], [place] [address] Jan, [facility] [address] [id number] [address] [place] [address], [place] [address] Jan, [facility] [address] [id number] [address] [place] [address], [place] [address] Jan, [facility] [address] [id number] [address] [place] [address], [place] [address] Jan, [facility] [address] [id number] [address] [place] [address], [place] [address] Jan, [facility] [address] [id number] [address] [place] [address], [place] [address] Dec, [facility] [address] [id number] [address] [place] [address], [place] [address] Dec, [facility] [address] [id number] [address] [place] [address], [place] [address] Dec, [facility] [address] [id number] [address] [place] [address], [place] [address] Dec, [facility] [address] [id number] [address] [place] [address], [place] [address] Dec, [facility] [address] [id number] [address] [place] [address], [place] [address] Dec, [facility] [address] [id number] [address] [place] [address], [place] [address] Nov, [facility] [address] [id number] [address] [place] [address], [place] [address] Nov, [facility] [address] [id number] [address] [place] [address], [place] [address] 14 Nov, 2013 [facility] [address] [id number] [address] [place] [address], [place] [address] 14 Nov, 2013 [facility] [address] [id number] [address] [place] [address], [place] [address] Oct, [facility] [address] [id number] [address] [place] [address], [place] [address] Oct, [facility] [address] [id number] [address] [place] [address], [place] [address] Oct, [facility] [address] [id number] [address] [place] [address], [place] [address] Oct, [facility] [address] [id number] [address] [place] [address], [place] [address] Oct, [facility] [address] [id number] [address] [place] [address], [place] [address] Oct, [facility] [address] [id number] [address] [place] [address], [place] [address] Oct, [facility] [address] [id number] [address] [place] [address], [place] [address] Oct, [facility] [address] [id number] [address] [place] [address], [place] [address] Oct, [facility] [address] [id number] [address] [place] [address], [place] [address] Sep, [facility] [address] [id number] [address] [place] [address], [place] [address] Sep, [facility] [address] [id number] [address] [place] [address], [place] [address] Sep, [facility] [address] [id number] [address] [place] [address], [place] [address] Sep, [facility] [address] [id number] [address] [place] [address], [place] [address] 16 Sep, 2013 [facility] [address] [id number] [address] [place] [address], [place] [address] 13 Sep, 2013 [facility] [address] [id number] [address] [place] [address], [place] [address] Sep, [facility] [address] [id number] [address] [place] [address], [place] [address] Aug, [facility] [address] [id number] [address] [place] [address], [place] [address] Aug, [facility] [address] [id number] [address] [place] [address], [place] [address] Jul, [facility] [address] [id number] [address] [place] [address], [place] [address] 28 Jul, 2013 [facility] [address] [id number] [address] [place] [address], [place] [address] 14 Jul, 2013 [facility] [address] [id number] [address] [place] [address], [place] [address] 14 Jul, 2013 [facility] [address] [id number] [address] [place] [address], [place] [address] Jul, [facility] [address] [id number] [address] [place] [address], [place] [address] Jul, [facility] [address] [id number] [address] [place] [address], [place] [address] 25 Jun, 2013 [facility] [address] [id number] [address] [place] [address], [place] [address] 16 Jun, 2013 [facility] [address] [id number] [address] [place] [address], [place] [address] 13 Jun, 2013 [facility] [address] [id number] [address] [place] [address], [place] [address] 30 May, 2013 [facility] [address] [id number] [address] [place] [address], [place] [address] May, [facility] [address] [id number] [address] [place] [address], [place] [address] Apr, [facility] [address] [id number] [address] [place] [address], [place] [address] Apr, [facility] [address] [id number] [address] [place] [address], [place] [address] Apr, [facility] [address] [id number] [address] [place] [address], [place] [address] Mar, [facility] [address] [id number] [address] [place] [address], [place] [address] Mar, [facility] [address] [id number] [address] [place] [address], [place] [address] February, [facility] [address] [id number] [address] [place] [address], [place] [address] February, [facility] [address] [id number] [address] [place] [address], [place] [address] Jan, [facility] [address] [id number] [address] [place] [address], [place] [address] Jan, [facility] [address] [id number] [address] [place] [address], [place] [address] Dec, [facility] [address] [id number] [address] [place] [address], [place] [address] Nov, [facility] [address] [id number] [address] [place] [address], [place] [address] Nov, [facility] [address] [id number] [address] [place] [address], [place] [address] Nov, [facility] [address] [id number] [address] [place] [address], [place] [address] Oct, [facility] [address] [id number] [address] [place] [address], [place] [address] Aug, [facility] [address] [id number] [address] [place] [address], [place] [address] Aug, [facility] [address] [id number] [address] [place] [address], [place] [address] 08 Aug, 2012 [facility] [address] [id number] [address] [place] [address], [place] [address] 08 Aug, 2012 [facility] [address] [id number] [address] [place] [address], [place] [address] 26 Jun, 2012 [facility] [address] [id number] [address] [place] [address], [place] [address] 10 Jun, 2012 [facility] [address] [id number] [address] [place] [address], [place] [address] 08 Jun, 2012 [facility] [address] [id number] [address] [place] [address], [place] [address] 07 Jun, 2012 [facility] [address] [id number] [address] [place] [address], [place] [address] 05 Jun, 2012 [facility] [address] [id number] [address] [place] [address], [place] [address] May, [facility] [address] [id number] [address] [place] [address], [place] [address] 14 May, 2012 [facility] [address] [id number] [address] [place] [address], [place] [address] May, [facility] [address] [id number] [address] [place] [address], [place] [address] May, [facility] [address] [id number] [address] [place] [address], [place] [address] Mar, [facility] [address] [id number] [address] [place] [address], [place] [address] Mar, [facility] [address] [id number] [address] [place] [address], [place] [address] February, [facility] [address] [id number] [address] [place] [address], [place] [address] February, [facility] [address] [id number] [address] [place] [address], [place] [address] Jan, [facility] [address] [id number] [address] [place] [address], [place] [address] 17 Jan, 2012 [facility] [address] [id number] [address] [place] [address], [place] [address] 13 Jan, 2012 [facility] [address] [id number] [address] [place] [address], [place] [address] 12 Jan, 2012 [facility] [address] [id number] [address] [place] [address], [place] [address] Jan, [facility] [address] [id number] [address] [place] [address], [place] [address] 20 Nov, 2011 [facility] [address] [id number] [address] [place] [address], [place] [address] 15 Nov, 2011 [facility] [address] [id number] [address] [place] [address], [place] [address] 10 Nov, 2011 [facility] [address] [id number] [address] [place] [address], [place] [address] Oct, [facility] [address] [id number] [address] [place] [address], [place] [address] 14 Sep, 2011 [facility] [address] [id number] [address] [place] [address], [place] [address] 14 Sep, 2011 [facility] [address] [id number] [address] [place] [address], [place] [address] Sep, [facility] [address] [id number] [address] [place] [address], [place] [address] Aug, [facility] [address] [id number] [address] [place] [address], [place] [address] Aug, [facility] [address] [id number] [address] [place] [address], [place] [address] Jul, [facility] [address] [id number] [address] [place] [address], [place] [address] Jul, [facility] [address] [id number] [address] [place] [address] Jun, [facility] [address] [facility] [id number] [address] [place] [address] 17 Nov, 2009 [facility] [address] [facility] [id number] [address] [place] [address] Aug, [facility] [address] [facility] [id number] [address] [place] [address] Mar, [facility] [address] [facility] [id number] [address] [place] [address] Nov, IMMUNIZATIONS No Known Immunizations SOCIAL HISTORY [...]
--- OUTSIDE RECORDS SUMMARY | 2020-03-15 07:02 | XMS REPORT ---
Author Author Marleny KENNY [facility] Address [address] [place] [address] Care Team Providers Care Endoscopy Nurse Name Role Phone EFRAÍN PHILLY Unavailable PROBLEMS Type Condition ICD9-CM Code LWB51-WT Code Onset Dates Condition S tatus SNOMED Code Problem Major depressive disorder, recurrent episode, moderate deg ree F33.1 Active 32210672 Problem Mitral valve prolapse I34.1 Active 413049657 Problem Essential tremor G25.0 Active 609 612911 Problem Hx of fracture of left hip Z87.81 Act west 033420197 Problem Other chronic pain G89.29 Active 8 2743845 Problem Morbid obesity due to excess calories E66.01 Active 576464263 Problem Osteopenia of multiple sites M85.89 A ctive 613091750 Problem Back pain with history of spinal surgery M54.9 Active 735311103 Problem Acquired absence of both cervix and uterus Z90.710 Active 618811641 Problem Chronic obstructive pulmonary disease, unspecified COPD ty pe J44.9 Active 72769691 Problem Lumbago with sciatica, left side M54.42 Active 158288093 Problem Family history of colon cancer Z80.0 Active 917230297 Problem Hyperlipidemia, unspecified hyperlipidemia type E7 8.5 Active 78684403 Problem Colon cancer screening Z12.11 Active 680714512 Problem Post menopausal syndrome N95.1 Activ e 446735215 Problem Asymptomatic postprocedural ovarian failure E89.40 Active 220358342 ALLERGIES No Information ENCOUNTERS Encounter Location Date Diagnosis [facility] [address] [facility] [id number] [address] [place] [address] Mar, [facility] [address] [facility] [id number] [address] [place] [address] February, [facility] [address] [facility] [id number] [address] [place] [address] February, Major depressive disorder, r ecurrent episode, moderate degree F33.1 [facility] [address] [id number] [address] [place] [address] 30 Jan, 2020 Back pain with history of sp inal surgery M54.9 and Hx of fracture of left hip Z87.81 [facility] [address] [id number] [address] [place] [address] 28 Jan, 2020 [facility] [address] [id number] [address] [place] [address] Jan, Major depressive disorder, r ecurrent episode, moderate degree F33.1 [facility] [address] [facility] [id number] [address] [place] [address] 18 Jan, 2020 [facility] [address] [facility] [id number] [address] [place] [address] Jan, Lumbago with sciatica, left side M54.42 and Other chronic pain G89.29 [facility] [place] [address] [id number] [address] 17 Jan, 2020 [facility] [place] [address] [facility] [id number] [place] [address] 16 Jan, 2020 Other chronic pain G89.29 [facility] [place] [id number] [place] [address] Jan, [facility] [address] [facility] [id number] [address] [place] [address] Jan, Major depressive disorder, r ecurrent episode, moderate degree F33.1 [facility] [address] [facility] [id number] [address] [place] [address] 08 Jan, 2020 [facility] [place] [id number] [place] [address] Dec, Post menopausal syndrome N95.1 [facility] [place] [address] [id number] [address] Dec, Post menopausal syndrome N95.1 and Other chronic pain G89.29 [facility] [place] [id number] [place] [address] Dec, Post menopausal syndrome N95.1 and Acquired absence of both cervix and uterus Z90.710 [facility] [address] [facility] [id number] [address] [place] [address] Dec, Major depressive disorder, r ecurrent episode, moderate degree F33.1 [facility] [place] [id number] [place] [address] Nov, Major depressive disorder, recurrent episode, moderate degree F33.1 ; Morbid obesity due to excess calories E66.01 ; Hyperlipidemia, unspecified hyperlipidemia type E78.5 ; Colon cancer screening Z12.11 and Hormone replacement therapy (postmenopausal) Z79.890 [facility] [id number] [place] [address] Nov, [facility] [id number] [place] [address] Nov, Lumbar radiculopathy, acute M54.16 [facility] [id number] [place] [address] Nov, Other chronic pain G89.29 [facility] [id number] [place] [address] Nov, [facility] [id number] [place] [address] Nov, Hyperlipidemia, unspecified hyperlipidemia type E78.5 [facility] [address] [facility] [id number] [address] [place] [address] Nov, [facility] [address] [facility] [id number] [address] [place] [address] Oct, Major depressive disorder, r ecurrent episode, moderate degree F33.1 [facility] [address] [facility] [id number] [address] [place] [address] Oct, Lumbar radiculopathy, acute M54.16 [facility] [address] [id number] [address] [place] [address] 17 Oct, 2019 [facility] [address] [id number] [address] [place] [address] 15 Oct, 2019 Back pain with history of sp inal surgery M54.9 ; Major depressive disorder, recurrent episode, moderate degree F33.1 ; Osteopenia of multiple sites M85.89 ; Easy bruising R23.8 ; Morbid obesity due to excess calories E66.01 ; Sore throat J02.9 ; Cough R05 ; Therapeutic drug monitoring Z51.81 and Severe back pain M54.9 [facility] [address] [id number] [address] [place] [address] 07 Oct, 2019 Major depressive disorder, r ecurrent episode, moderate degree F33.1 [facility] [address] [facility] [id number] [address] [place] [address] 23 Sep, 2019 Lumbar radiculopathy, acute M54.16 [place] [address] [id number] [address] [place] [address] Sep, [facility] [address] [id number] [address] [place] [address] Sep, Laryngitis J04.0 ; Asymptoma tic menopausal state Z78.0 and Hx of fracture of left hip Z87.81 [facility] [address] [id number] [address] [place] [address] Sep, Major depressive disorder, r ecurrent episode, moderate degree F33.1 [facility] [address] [id number] [address] [place] [address] Sep, [facility] [address] [id number] [address] [place] [address] Aug, [facility] [address] [facility] [id number] [address] [place] [address] Aug, [facility] [address] [facility] [id number] [address] [place] [address] Aug, Family history of colon canc er Z80.0 ; Chronic obstructive pulmonary disease, unspecified COPD type J44.9 ; Essential tremor G25.0 ; Mitral valve prolapse I34.1 ; Other chronic pain G89.29 ; Hx of fracture of left hip Z87.81 and Encounter for immunization Z23 [facility] [address] [facility] [id number] [address] [place] [address] Aug, Major depressive disorder, r ecurrent episode, moderate degree F33.[address] [id number] [address] Aug, Muscle spasm M62.838 ; Sever e back pain M54.9 and Hx of spinal surgery Z98.[address] [id number], [place] [address] Aug, [facility] [address] [facility] [id number] [place] [address] Aug, Sore throat J02.9 ; Cough R05 and Viral upper respiratory illness J06.9 [facility] [address] [facility] [id number] [address] [place] [address] Aug, Major depressive disorder, r ecurrent episode, moderate degree F33.[address] [id number], [place] [address] Jul, [address] [id number], [place] [address] Jul, [address] [id number], [place] [address] Jul, [address] 340B [id number], [place] [address] Jul, [facility] [address] [facility] [id number] [address] [place] [address] Jul, Major depressive disorder, r ecurrent episode, moderate degree F33.1 [facility] [address] [facility] [id number] [address] [place] [address] Jul, [address] [id number] [place] [address] Jul, [facility] [address] [facility] [id number] [address] [place] [address] Jul, Encounter for immunization Z 23 [facility] [place] [address] 340B [id number] [place] [address] Jul, Restrictive airway disease J 98.[address] [id number], [place] [address] Jul, Screening for breast cancer Z12.39 [facility] [address] [facility] [id number] [address] [place] [address] Jul, Major depressive disorder, r ecurrent episode, moderate degree F33.1 [facility] [place] [address] 340[place] [id number], [place] [address] Jun, [address] 340[place] [id number], [place] [address] Jun, [address] 340[place] [id number], [place] [address] Jun, Shortness of breath R06.[address] 340B [id number], [place] [address] Jun, Shortness of breath R06.[address] 340B [id number], [place] [address] Jun, Shortness of breath R06.02 a nd Restrictive lung disease J98.4 [facility] [address] [facility] [id number] [address] [place] [address] Jun, Major depressive disorder, r ecurrent episode, moderate degree F33.[address] 340B [id number], [place] [address] Jun, [facility] [address] [facility] [id number] [address] [place] [address] 18 Jun, 2019 History of tobacco use Z87.8 91 ; Screening for breast cancer Z12.39 and Trigger point M79.[address] 340B [id number], [place] [address] 11 Jun, [address] 340B [id number], [place] [address] 10 Jun, 2019 Major depressive disorder, r ecurrent episode, moderate degree F33.1 ; Trigger point M79.10 ; History of tobacco use Z87.891 and Screening for breast cancer Z12.39 [facility] [address] [facility] [id number] [address] [place] [address] Jun, Major depressive disorder, r ecurrent episode, moderate degree F33.1 [place] [address] [facility] [id number] [address] [place] [address] May, Major depressive disorder, r ecurrent episode, moderate degree F33.[address] 340B [id number], [place] [address] May, Essential tremor G25.0 ; Can dida rash of groin B37.89 and History of hypertension Z86.79 [facility] [place] [address] 340[address] [id number], [place] [address] May, [address] 340B [id number], [place] [address] May, [place] [address] [facility] [id number] [address] [place] [address] May, Major depressive disorder, r ecurrent episode, moderate degree F33.1 [facility] [place] [address] 340B [id number], [place] [address] Apr, [facility] [place] [address] [facility] [id number] [place] [address] Apr, [facility] [address] [id number] [place] [address] Mar, [facility] [place] [address] 340[place] [id number] [place] [address] Mar, [facility] [place] [address] 340B [id number] [place] [address] Mar, [facility] [place] [address] 340B [id number] [place] [address] Mar, [facility] [place] [address] 340B [id number] [place] [address] Mar, [facility] [place] [address] [id number] [place] [address] Mar, Spinal stenosis of lumbar region without neurogenic claudication M48.061 [facility] [place] [address] [id number] [place] [address] Mar, Therapeutic drug monitoring Z51.81 [facility] [place] [address] 340B [id number] [place] [address] February, Therapeutic drug monitoring Z51.81 [facility] [place] [address] 340B [id number] [place] [address] Jan, [facility] [place] [address] 340B [id number] [place] [address] Jan, [facility] [place] [address] 340B [id number] [place] [address] Jan, [facility] [place] [address] [id number] [place] [address] Dec, [facility] [place] [address] 340B [id number] [place] [address] Dec, [facility] [place] [address] 340B [id number] [place] [address] Dec, [facility] [place] [address] 340B [id number] [place] [address] Nov, [facility] [place] [address] 340B [id number] [place] [address] Nov, [facility] [place] [address] [id number] [address] [place] [id number] 16 Sep, 2016 Dental examination Z01.20 [facility] [address] [id number] [address] [place] [address] [id number] 10 Jun, 2015 Dental examination V72.2 [facility] [address] [id number] [address] [place] [address] 14 Jan, 2015 [facility] [address] [id number] [address] [place] [address] Jan, [facility] [address] [id number] [address] [place] [address] Oct, [facility] [address] [id number] [address] [place] [address] Oct, [facility] [address] [id number] [address] [place] [address] Jul, [facility] [address] [id number] [address] [place] [address] Jul, [facility] [address] [id number] [address] [place] [address] Jun, [facility] [address] [id number] [address] [place] [address] Jun, [facility] [address] [id number] [address] [place] [address] May, [facility] [address] [id number] [address] [place] [address] May, [facility] [address] [id number] [address] [place] [address] May, [facility] [address] [id number] [address] [place] [address] May, [facility] [address] [id number] [address] [place] [address] May, [facility] [address] [id number] [address] [place] [address] May, [facility] [address] [id number] [facility] [place] [address] May, [facility] [address] [id number] [address] [place] [address], [place] [address] May, [facility] [address] [id number] [address] [place] [address], [place] [address] Apr, [facility] [address] [id number] [address] [place] [address], [place] [address] Apr, [facility] [address] [id number] [address] [place] [address], [place] [address] Apr, [facility] [address] [id number] [address] [place] [address], [place] [address] Apr, [facility] [address] [id number] [address] [place] [address], [place] [address] Apr, [facility] [address] [id number] [address] [place] [address], [place] [address] Apr, [facility] [address] [id number] [address] [place] [address], [place] [address] Apr, [facility] [address] [id number] [address] [place] [address], [place] [address] Apr, [facility] [address] [id number] [address] [place] [address], [place] [address] Apr, [facility] [address] [id number] [address] [place] [address], [place] [address] Apr, [facility] [address] [id number] [address] [place] [address], [place] [address] Apr, [facility] [address] [id number] [address] [place] [address], [place] [address] Apr, [facility] [address] [id number] [address] [place] [address], [place] [address] Apr, [facility] [address] [id number] [facility] [place] [address] Apr, [facility] [address] [id number] [address] [place] [address], [place] [address] Apr, [facility] [address] [id number] [address] [place] [address], [place] [address] Apr, [facility] [address] [id number] [address] [place] [address], [place] [address] Apr, [facility] [address] [id number] [address] [place] [address], [place] [address] Mar, [facility] [address] [id number] [address] [place] [address], [place] [address] Mar, [facility] [address] [id number] [address] [place] [address], [place] [address] Mar, [facility] [address] [id number] [address] [place] [address], [place] [address] Mar, [facility] [address] [id number] [address] [place] [address], [place] [address] Mar, [facility] [address] [id number] [address] [place] [address], [place] [address] Mar, [facility] [address] [id number] [address] [place] [address], [place] [address] Mar, [facility] [address] [id number] [address] [place] [address], [place] [address] Mar, [facility] [address] [id number] [address] [place] [address], [place] [address] Mar, [facility] [address] [id number] [address] [place] [address], [place] [address] Mar, [facility] [address] [id number] [address] [place] [address], [place] [address] Mar, [facility] [address] [id number] [address] [place] [address], [place] [address] Mar, [facility] [address] [id number] [facility] [place] [address] February, [facility] [address] [id number] [address] [place] [address], [place] [address] February, [facility] [address] [id number] [address] [place] [address], [place] [address] February, [facility] [address] [id number] [address] [place] [address], [place] [address] February, [facility] [address] [id number] [address] [place] [address], [place] [address] February, [facility] [address] [id number] [address] [place] [address], [place] [address] February, [facility] [address] [id number] [address] [place] [address], [place] [address] February, [facility] [address] [id number] [address] [place] [address], [place] [address] February, [facility] [address] [id number] [address] [place] [address], [place] [address] February, [facility] [address] [id number] [address] [place] [address], [place] [address] February, [facility] [address] [id number] [address] [place] [address], [place] [address] February, [facility] [address] [id number] [address] [place] [address], [place] [address] February, [facility] [address] [id number] [address] [place] [address], [place] [address] Jan, [facility] [address] [id number] [address] [place] [address], [place] [address] Jan, [facility] [address] [id number] [address] [place] [address], [place] [address] Jan, [facility] [address] [id number] [address] [place] [address], [place] [address] 09 Jan, 2014 [facility] [address] [id number] [address] [place] [address], [place] [address] Jan, [facility] [address] [id number] [address] [place] [address], [place] [address] Jan, [facility] [address] [id number] [address] [place] [address], [place] [address] Dec, [facility] [address] [id number] [address] [place] [address], [place] [address] Dec, [facility] [address] [id number] [address] [place] [address], [place] [address] Dec, [facility] [address] [id number] [address] [place] [address], [place] [address] Dec, [facility] [address] [id number] [address] [place] [address], [place] [address] Dec, [facility] [address] [id number] [address] [place] [address], [place] [address] Dec, [facility] [address] [id number] [address] [place] [address], [place] [address] Nov, [facility] [address] [id number] [address] [place] [address], [place] [address] Nov, [facility] [address] [id number] [address] [place] [address], [place] [address] Nov, [facility] [address] [id number] [address] [place] [address], [place] [address] Nov, [facility] [address] [id number] [address] [place] [address], [place] [address] Oct, [facility] [address] [id number] [address] [place] [address], [place] [address] Oct, [facility] [address] [id number] [address] [place] [address], [place] [address] Oct, [facility] [address] [id number] [address] [place] [address], [place] [address] 15 Oct, 2013 [facility] [address] [id number] [address] [place] [address], [place] [address] Oct, [facility] [address] [id number] [address] [place] [address], [place] [address] Oct, [facility] [address] [id number] [address] [place] [address], [place] [address] Oct, [facility] [address] [id number] [address] [place] [address], [place] [address] Oct, [facility] [address] [id number] [address] [place] [address], [place] [address] Oct, [facility] [address] [id number] [address] [place] [address], [place] [address] Sep, [facility] [address] [id number] [address] [place] [address], [place] [address] 30 Sep, 2013 [facility] [address] [id number] [address] [place] [address], [place] [address] Sep, [facility] [address] [id number] [address] [place] [address], [place] [address] Sep, [facility] [address] [id number] [address] [place] [address], [place] [address] 16 Sep, 2013 [facility] [address] [id number] [address] [place] [address], [place] [address] Sep, [facility] [address] [id number] [address] [place] [address], [place] [address] Sep, [facility] [address] [id number] [address] [place] [address], [place] [address] Aug, [facility] [address] [id number] [address] [place] [address], [place] [address] Aug, [facility] [address] [id number] [address] [place] [address], [place] [address] Jul, [facility] [address] [id number] [address] [place] [address], [place] [address] 28 Jul, 2013 [facility] [address] [id number] [address] [place] [address], [place] [address] 14 Jul, 2013 [facility] [address] [id number] [address] [place] [address], [place] [address] 14 Jul, 2013 [facility] [address] [id number] [address] [place] [address], [place] [address] Jul, [facility] [address] [id number] [address] [place] [address], [place] [address] Jul, [facility] [address] [id number] [address] [place] [address], [place] [address] 25 Jun, 2013 [facility] [address] [id number] [address] [place] [address], [place] [address] 16 Jun, 2013 [facility] [address] [id number] [address] [place] [address], [place] [address] Jun, [facility] [address] [id number] [address] [place] [address], [place] [address] 30 May, 2013 [facility] [address] [id number] [address] [place] [address], [place] [address] May, [facility] [address] [id number] [address] [place] [address], [place] [address] Apr, [facility] [address] [id number] [address] [place] [address], [place] [address] Apr, [facility] [address] [id number] [address] [place] [address], [place] [address] Apr, [facility] [address] [id number] [address] [place] [address], [place] [address] Mar, [facility] [address] [id number] [address] [place] [address], [place] [address] Mar, [facility] [address] [id number] [address] [place] [address], [place] [address] February, [facility] [address] [id number] [address] [place] [address], [place] [address] February, [facility] [address] [id number] [address] [place] [address], [place] [address] Jan, [facility] [address] [id number] [address] [place] [address], [place] [address] Jan, [facility] [address] [id number] [address] [place] [address], [place] [address] Dec, [facility] [address] [id number] [address] [place] [address], [place] [address] Nov, [facility] [address] [id number] [address] [place] [address], [place] [address] Nov, [facility] [address] [id number] [address] [place] [address], [place] [address] Nov, [facility] [address] [id number] [address] [place] [address], [place] [address] Oct, [facility] [address] [id number] [address] [place] [address], [place] [address] Aug, [facility] [address] [id number] [address] [place] [address], [place] [address] Aug, [facility] [address] [id number] [address] [place] [address], [place] [address] Aug, [facility] [address] [id number] [address] [place] [address], [place] [address] Aug, [facility] [address] [id number] [address] [place] [address], [place] [address] 26 Jun, 2012 [facility] [address] [id number] [address] [place] [address], [place] [address] 10 Jun, 2012 [facility] [address] [id number] [address] [place] [address], [place] [address] 08 Jun, 2012 [facility] [address] [id number] [address] [place] [address], [place] [address] 07 Jun, 2012 [facility] [address] [id number] [address] [place] [address], [place] [address] 05 Jun, 2012 [facility] [address] [id number] [address] [place] [address], [place] [address] May, [facility] [address] [id number] [address] [place] [address], [place] [address] 14 May, 2012 [facility] [address] [id number] [address] [place] [address], [place] [address] May, [facility] [address] [id number] [address] [place] [address], [place] [address] May, [facility] [address] [id number] [address] [place] [address], [place] [address] Mar, [facility] [address] [id number] [address] [place] [address], [place] [address] Mar, [facility] [address] [id number] [address] [place] [address], [place] [address] February, [facility] [address] [id number] [address] [place] [address], [place] [address] February, [facility] [address] [id number] [address] [place] [address], [place] [address] Jan, [facility] [address] [id number] [address] [place] [address], [place] [address] 17 Jan, 2012 [facility] [address] [id number] [address] [place] [address], [place] [address] 13 Jan, 2012 [facility] [address] [id number] [address] [place] [address], [place] [address] 12 Jan, 2012 [facility] [address] [id number] [address] [place] [address], [place] [address] 11 Jan, 2012 [facility] [address] [id number] [address] [place] [address], [place] [address] 20 Nov, 2011 [facility] [address] [id number] [address] [place] [address], [place] [address] 15 Nov, 2011 [facility] [address] [id number] [address] [place] [address], [place] [address] 10 Nov, 2011 [facility] [address] [id number] [address] [place] [address], [place] [address] 03 Oct, 2011 [facility] [address] [id number] [address] [place] [address], [place] [address] 14 Sep, 2011 [facility] [address] [id number] [address] [place] [address], [place] [address] 14 Sep, 2011 [facility] [address] [id number] [address] [place] [address], [place] [address] Sep, [facility] [address] [id number] [address] [place] [address], [place] [address] Aug, [facility] [address] [id number] [address] [place] [address], [place] [address] Aug, [facility] [address] [id number] [address] [place] [address], [place] [address] Jul, [facility] [address] [id number] [address] [place] [address], [place] [address] Jul, [facility] [address] [id number] [address] [place] [address], [place] [address] Jun, [facility] [address] [id number] [address] [place] [address], [place] [address] 17 Nov, 2009 [facility] [address] [id number] [address] [place] [address], [place] [address] Aug, [facility] [address] [id number] [address] [place] [address], [place] [address] Mar, [facility] [address] [id number] [address] [place] [address], [place] [address] Nov, IMMUNIZATIONS No Known Immunizations SOCIAL HISTORY [...]
--- OUTSIDE RECORDS SUMMARY | 2020-03-15 07:03 | XMS REPORT ---
Author Author Marleny DIAZ Organization [facility] Address [address] [place] [address] Care Team Providers Care Air Crew Officer Name Role Phone LIVE DIAZ Unavailable PROBLEMS Type Condition ICD9-CM Code [id number] Code Onset Dates Condition S tatus SNOMED Code Problem Essential tremor G25.0 Active 604 507111 Problem Major depressive disorder, recurrent episode, moderate deg ree F33.1 Active 50797337 Problem Mitral valve prolapse I34.1 Active 673038456 Problem Hx of fracture of left hip Z87.81 Act west 653739734 Problem Chronic obstructive pulmonary disease, unspecified COPD ty pe J44.9 Active 16969215 Problem Morbid obesity due to excess calories E66.01 Active 241046660 Problem Osteopenia of multiple sites M85.89 A ctive 333038174 Problem Acquired absence of both cervix and uterus Z90.710 Active 096262902 Problem Family history of colon cancer Z80.0 Active 080255737 Problem Asymptomatic postprocedural ovarian failure E89.40 Active 497346729 Problem Other chronic pain G89.29 Active 8 1832580 Problem Back pain with history of spinal surgery M54.9 Active 737133188 Problem Hyperlipidemia, unspecified hyperlipidemia type E7 8.5 Active 70008866 Problem Colon cancer screening Z12.11 Active 138363160 Problem Post menopausal syndrome N95.1 Activ e [id number] ALLERGIES No Information ENCOUNTERS Encounter Location Date Diagnosis [facility] [address] [facility] [id number] [address] [place] [address] 09 Jan, 2020 [facility] [address] [facility] [id number] [place] [address] Dec, Post menopausal syndrome N95.1 [facility] [address] [facility] [id number] [place] [address] Dec, Post menopausal syndrome N95.1 and Other chronic pain G89.29 [facility] [address] [id number] [address] Dec, Post menopausal syndrome N95.1 and Acquired absence of both cervix and uterus Z90.710 [facility] [address] [facility] [id number] [address] [place] [address] Dec, Major depressive disorder, r ecurrent episode, moderate degree F33.1 [facility] [id number] [place] [address] Nov, Major depressive disorder, recurrent episode, moderate degree F33.1 ; Morbid obesity due to excess calories E66.01 ; Hyperlipidemia, unspecified hyperlipidemia type E78.5 ; Colon cancer screening Z12.11 and Hormone replacement therapy (postmenopausal) Z79.890 [facility] [id number] [place] [address] Nov, [facility] [id number] [place] [address] Nov, Lumbar radiculopathy, acute M54.16 [facility] [id number] [place] [address] Nov, Other chronic pain G89.29 [facility] [id number] [place] [address] Nov, [facility] [id number] [place] [address] 13 Nov, 2019 Hyperlipidemia, unspecified hyperlipidemia type E78.5 [facility] [address] [facility] [id number] [address] [place] [address] Nov, [facility] [address] [facility] [id number] [address] [place] [address] Oct, Major depressive disorder, r ecurrent episode, moderate degree F33.1 [facility] [address] [facility] [id number] [address] [place] [address] Oct, Lumbar radiculopathy, acute M54.16 [facility] [address] [id number] [address] [place] [address] 17 Oct, 2019 [facility] [address] [id number] [address] [place] [address] 15 Oct, 2019 Back pain with history of sp inal surgery M54.9 ; Major depressive disorder, recurrent episode, moderate degree F33.1 ; Osteopenia of multiple sites M85.89 ; Easy bruising R23.8 ; Morbid obesity due to excess calories E66.01 ; Sore throat J02.9 ; Cough R05 ; Therapeutic drug monitoring Z51.81 and Severe back pain M54.9 [facility] [address] [id number] [address] [place] [address] 07 Oct, 2019 Major depressive disorder, r ecurrent episode, moderate degree F33.1 [facility] [address] [id number] [address] [place] [address] 23 Sep, 2019 Lumbar radiculopathy, acute M54.16 [place] [address] [id number] [address] [place] [address] Sep, [facility] [address] [id number] [address] [place] [address] Sep, Laryngitis J04.0 ; Asymptoma tic menopausal state Z78.0 and Hx of fracture of left hip Z87.81 [facility] [address] [id number] [address] [place] [address] Sep, Major depressive disorder, r ecurrent episode, moderate degree F33.1 [facility] [address] [id number] [address] [place] [address] Sep, [facility] [address] [id number] [address] [place] [address] Aug, [facility] [address] [id number] [address] [place] [address] Aug, [facility] [address] [id number] [address] [place] [address] Aug, Family history of colon canc er Z80.0 ; Chronic obstructive pulmonary disease, unspecified COPD type J44.9 ; Essential tremor G25.0 ; Mitral valve prolapse I34.1 ; Other chronic pain G89.29 ; Hx of fracture of left hip Z87.81 and Encounter for immunization Z23 [facility] [address] [facility] [id number] [address] [place] [address] Aug, Major depressive disorder, r ecurrent episode, moderate degree F33.[address] [id number] [address] Aug, Muscle spasm M62.838 ; Sever e back pain M54.9 and Hx of spinal surgery Z98.[address] [id number], [place] [address] Aug, [facility] [address] [facility] [id number] [place] [address] Aug, Sore throat J02.9 ; Cough R05 and Viral upper respiratory illness J06.9 [facility] [address] [facility] [id number] [address] [place] [address] Aug, Major depressive disorder, r ecurrent episode, moderate degree F33.[address] 340 [id number], [place] [address] Jul, [address] [id number] [address] Jul, [address] [id number], [place] [address] Jul, [address] 340B [id number], [place] [address] Jul, [facility] [address] [facility] [id number] [address] [place] [address] Jul, Major depressive disorder, r ecurrent episode, moderate degree F33.1 [facility] [address] [facility] [id number] [address] [place] [address] Jul, [facility] [address] 340B [id number] [place] [address] Jul, [facility] [address] [facility] [id number] [address] [place] [address] Jul, Encounter for immunization Z 23 [facility] [place] [address]B [id number] [place] [address] Jul, Restrictive airway disease J 98.[address] [id number], [place] [address] Jul, Screening for breast cancer Z12.39 [facility] [address] [facility] [id number] [address] [place] [address] Jul, Major depressive disorder, r ecurrent episode, moderate degree F33.1 [facility] [place] [address] [id number], [place] [address] Jun, [address] [id number], [place] [address] Jun, [address] 340[address] [id number], [place] [address] Jun, Shortness of breath R06.[address] [id number], [place] [address] Jun, Shortness of breath R06.[address] 340[address] [id number], [place] [address] Jun, Shortness of breath R06.02 a nd Restrictive lung disease J98.4 [facility] [address] [facility] [id number] [address] [place] [address] Jun, Major depressive disorder, r ecurrent episode, moderate degree F33.[address] 340B [id number] [place] [address] Jun, [facility] [address] [facility] [id number] [address] [place] [address] Jun, History of tobacco use Z87.8 91 ; Screening for breast cancer Z12.39 and Trigger point M79.10 [facility] [place] [address] [id number], [place] [address] 11 Jun, [address] 340B [id number], [place] [address] 10 Jun, 2019 Major depressive disorder, r ecurrent episode, moderate degree F33.1 ; Trigger point M79.10 ; History of tobacco use Z87.891 and Screening for breast cancer Z12.39 [facility] [address] [facility] [id number] [address] [place] [address] Jun, Major depressive disorder, r ecurrent episode, moderate degree F33.1 [facility] [address] [facility] [id number] [address] [place] [address] May, Major depressive disorder, r ecurrent episode, moderate degree F33.[address] 340B [id number], [place] [address] May, Essential tremor G25.0 ; Can dida rash of groin B37.89 and History of hypertension Z86.79 [facility] [place] [address] 340[address] [id number], [place] [address] May, [facility] [place] [address] 340B [id number], [place] [address] May, [place] [address] [facility] [id number] [address] [place] [address] May, Major depressive disorder, r ecurrent episode, moderate degree F33.1 [facility] [place] [address] 340B [id number], [place] [address] Apr, [facility] [place] [address] [facility] [id number] [place] [address] Apr, [facility] [address] [id number] [place] [address] Mar, [facility] [place] [address] 340B [id number] [place] [address] Mar, [facility] [place] [address] 340B [id number] [place] [address] Mar, [facility] [place] [address]B [id number] [place] [address] Mar, [facility] [place] [address] 340B [id number] [place] [address] Mar, [facility] [place] [address] [id number] [place] [address] Mar, Spinal stenosis of lumbar region without neurogenic claudication M48.061 [facility] [place] [address] [id number] [place] [address] Mar, Therapeutic drug monitoring Z51.81 [facility] [place] [address] 340B [id number] [place] [address] February, Therapeutic drug monitoring Z51.81 [facility] [place] [address]B [id number] [place] [address] Jan, [facility] [place] [address] 340B [id number] [place] [address] Jan, [facility] [place] [address] 340B [id number] [place] [address] Jan, [facility] [place] [address] [id number] [place] [address] Dec, [facility] [place] [address] 340B [id number] [place] [address] Dec, [facility] [place] [address]B [id number] [place] [address] Dec, [facility] [place] [address] 340B [id number] [place] [address] Nov, [facility] [place] [address] 340B [id number] [place] [address] Nov, [facility] [address] [id number] [address] [place] [address] [id number] 16 Sep, 2016 [facility] Z01.20 [facility] [address] [id number] [address] [place] [id number] 10 Jun, 2015 Dental examination V72.2 [facility] [address] [id number] [address] [place] [address] 14 Jan, 2015 [facility] [address] [id number] [address] [place] [address] Jan, [facility] [address] [id number] [address] [place] [address] Oct, [facility] [address] [id number] [address] [place] [address] Oct, [facility] [address] [id number] [address] [place] [address] Jul, [facility] [address] [id number] [address] [place] [address] Jul, [facility] [address] [id number] [address] [place] [address] Jun, [facility] [address] [id number] [address] [place] [address] Jun, [facility] [address] [id number] [address] [place] [address] May, [facility] [address] [id number] [address] [place] [address] May, [facility] [address] [id number] [address] [place] [address] May, [facility] [address] [id number] [address] [place] [address] May, [facility] [address] [id number] [address] [place] [address] May, [facility] [address] [id number] [address] [place] [address] May, [facility] [address] [id number] [address] [place] [address], [place] [address] May, [facility] [address] [id number] [address] [place] [address], [place] [address] May, [facility] [address] [id number] [address] [place] [address], [place] [address] Apr, [facility] [address] [id number] [address] [place] [address], [place] [address] Apr, [facility] [address] [id number] [address] [place] [address], [place] [address] Apr, [facility] [address] [id number] [address] [place] [address], [place] [address] Apr, [facility] [address] [id number] [address] [place] [address], [place] [address] Apr, [facility] [address] [id number] [address] [place] [address], [place] [address] Apr, [facility] [address] [id number] [address] [place] [address], [place] [address] Apr, [facility] [address] [id number] [address] [place] [address], [place] [address] Apr, [facility] [address] [id number] [address] [place] [address], [place] [address] Apr, [facility] [address] [id number] [address] [place] [address], [place] [address] Apr, [facility] [address] [id number] [address] [place] [address], [place] [address] Apr, [facility] [address] [id number] [address] [place] [address], [place] [address] Apr, [facility] [address] [id number] [address] [place] [address], [place] [address] Apr, [facility] [address] [id number] [facility] [place] [address] Apr, [facility] [address] [id number] [facility] [place] [address] Apr, [facility] [address] [id number] [address] [place] [address], [place] [address] Apr, [facility] [address] [id number] [address] [place] [address], [place] [address] Apr, [facility] [address] [id number] [address] [place] [address], [place] [address] Mar, [facility] [address] [id number] [address] [place] [address], [place] [address] Mar, [facility] [address] [id number] [address] [place] [address], [place] [address] Mar, [facility] [address] [id number] [address] [place] [address], [place] [address] Mar, [facility] [address] [id number] [address] [place] [address], [place] [address] Mar, [facility] [address] [id number] [address] [place] [address], [place] [address] Mar, [facility] [address] [id number] [address] [place] [address], [place] [address] Mar, [facility] [address] [id number] [address] [place] [address], [place] [address] Mar, [facility] [address] [id number] [address] [place] [address], [place] [address] Mar, [facility] [address] [id number] [address] [place] [address], [place] [address] Mar, [facility] [address] [id number] [address] [place] [address], [place] [address] Mar, [facility] [address] [id number] [address] [place] [address], [place] [address] Mar, [facility] [address] [id number] [facility] [place] [address] February, [facility] [address] [id number] [address] [place] [address], [place] [address] February, [facility] [address] [id number] [address] [place] [address], [place] [address] February, [facility] [address] [id number] [address] [place] [address], [place] [address] February, [facility] [address] [id number] [address] [place] [address], [place] [address] February, [facility] [address] [id number] [address] [place] [address], [place] [address] February, [facility] [address] [id number] [address] [place] [address], [place] [address] February, [facility] [address] [id number] [address] [place] [address], [place] [address] February, [facility] [address] [id number] [address] [place] [address], [place] [address] February, [facility] [address] [id number] [address] [place] [address], [place] [address] February, [facility] [address] [id number] [address] [place] [address], [place] [address] February, [facility] [address] [id number] [address] [place] [address], [place] [address] February, [facility] [address] [id number] [address] [place] [address], [place] [address] Jan, [facility] [address] [id number] [address] [place] [address], [place] [address] Jan, [facility] [address] [id number] [address] [place] [address], [place] [address] Jan, [facility] [address] [id number] [address] [place] [address], [place] [address] 09 Jan, 2014 [facility] [address] [id number] [address] [place] [address], [place] [address] Jan, [facility] [address] [id number] [address] [place] [address], [place] [address] Jan, [facility] [address] [id number] [address] [place] [address], [place] [address] Dec, [facility] [address] [id number] [address] [place] [address], [place] [address] Dec, [facility] [address] [id number] [address] [place] [address], [place] [address] Dec, [facility] [address] [id number] [address] [place] [address], [place] [address] Dec, [facility] [address] [id number] [address] [place] [address], [place] [address] Dec, [facility] [address] [id number] [address] [place] [address], [place] [address] Dec, [facility] [address] [id number] [address] [place] [address], [place] [address] Nov, [facility] [address] [id number] [address] [place] [address], [place] [id number] Nov, [facility] [address] [id number] [address] [place] [address], [place] [address] Nov, [facility] [address] [id number] [address] [place] [address], [place] [address] Nov, [facility] [address] [id number] [address] [place] [address], [place] [address] Oct, [facility] [address] [id number] [address] [place] [address], [place] [id number] Oct, [facility] [address] [id number] [address] [place] [address], [place] [id number] 15 Oct, 2013 [facility] [address] [id number] [address] [place] [address], [place] [id number] 15 Oct, 2013 [facility] [address] [id number] [address] [place] [address], [place] [address] Oct, [facility] [address] [id number] [address] [place] [address], [place] [address] Oct, [facility] [address] [id number] [address] [place] [address], [place] [address] Oct, [facility] [address] [id number] [address] [place] [address], [place] [id number] Oct, [facility] [address] [id number] [address] [place] [address], [place] [address] Oct, [facility] [address] [id number] [address] [place] [address], [place] [id number] Sep, [facility] [address] [id number] [address] [place] [address], [place] [id number] 30 Sep, 2013 [facility] [address] [id number] [address] [place] [address], [place] [id number] Sep, [facility] [address] [id number] [address] [place] [address], [place] [id number] Sep, [facility] [address] [id number] [address] [place] [address], [place] [id number] 16 Sep, 2013 [facility] [address] [id number] [address] [place] [address], [place] [id number] 13 Sep, 2013 [facility] [address] [id number] [address] [place] [address], [place] [id number] Sep, [facility] [address] [id number] [address] [place] [address], [place] [id number] Aug, [facility] [address] [id number] [address] [place] [address], [place] [id number] Aug, [facility] [address] [id number] [address] [place] [address], [place] [id number] 28 Jul, 2013 [facility] [address] [id number] [address] [place] [address], [place] [id number] 28 Jul, 2013 [facility] [address] [id number] [address] [place] [address], [place] [id number] 14 Jul, 2013 [facility] [address] [id number] [address] [place] [address], [place] [id number] 14 Jul, 2013 [facility] [address] [id number] [address] [place] [address], [place] [address] Jul, [facility] [address] [id number] [address] [place] [address], [place] [address] Jul, [facility] [address] [id number] [address] [place] [address], [place] [id number] 25 Jun, 2013 [facility] [address] [id number] [address] [place] [address], [place] [address] 16 Jun, 2013 [facility] [address] [id number] [address] [place] [address], [place] [address] Jun, [facility] [address] [id number] [address] [place] [address], [place] [id number] 30 May, 2013 [facility] [address] [id number] [address] [place] [address], [place] [address] May, [facility] [address] [id number] [address] [place] [address], [place] [address] Apr, [facility] [address] [id number] [address] [place] [address], [place] [address] Apr, [facility] [address] [id number] [address] [place] [address], [place] [address] Apr, [facility] [address] [id number] [address] [place] [address], [place] [address] Mar, [facility] [address] [id number] [address] [place] [address], [place] [address] Mar, [facility] [address] [id number] [address] [place] [address], [place] [address] February, [facility] [address] [id number] [address] [place] [address], [place] [address] February, [facility] [address] [id number] [address] [place] [address], [place] [address] Jan, [facility] [address] [id number] [address] [place] [address], [place] [address] Jan, [facility] [address] [id number] [address] [place] [address], [place] [address] Dec, [facility] [address] [id number] [address] [place] [address], [place] [address] Nov, [facility] [address] [id number] [address] [place] [address], [place] [address] Nov, [facility] [address] [id number] [address] [place] [address], [place] [id number] Nov, [facility] [address] [id number] [address] [place] [address], [place] [id number] Oct, [facility] [address] [id number] [address] [place] [address], [place] [id number] Aug, [facility] [address] [id number] [address] [place] [address], [place] [address] Aug, [facility] [address] [id number] [address] [place] [address], [place] [address] Aug, [facility] [address] [id number] [address] [place] [address], [place] [address] Aug, [facility] [address] [id number] [address] [place] [address], [place] [address] Jun, [facility] [address] [id number] [address] [place] [address], [place] [address] 10 Jun, 2012 [facility] [address] [id number] [address] [place] [address], [place] [id number] 08 Jun, 2012 [facility] [address] [id number] [address] [place] [address], [place] [id number] 07 Jun, 2012 [facility] [address] [id number] [address] [place] [address], [place] [address] 05 Jun, 2012 [facility] [address] [id number] [address] [place] [address], [place] [address] May, [facility] [address] [id number] [address] [place] [address], [place] [address] 14 May, 2012 [facility] [address] [id number] [address] [place] [address], [place] [address] May, [facility] [address] [id number] [address] [place] [address], [place] [address] May, [facility] [address] [id number] [address] [place] [address], [place] [address] Mar, [facility] [address] [id number] [address] [place] [address], [place] [address] Mar, [facility] [address] [id number] [address] [place] [address], [place] [address] February, [facility] [address] [id number] [address] [place] [address], [place] [id number] February, [facility] [address] [id number] [address] [place] [address], [place] [address] Jan, [facility] [address] [id number] [address] [place] [address], [place] [address] 17 Jan, 2012 [facility] [address] [id number] [address] [place] [address], [place] [id number] 13 Jan, 2012 [facility] [address] [id number] [address] [place] [address], [place] [id number] 12 Jan, 2012 [facility] [address] [id number] [address] [place] [address], [place] [address] 11 Jan, 2012 [facility] [address] [id number] [address] [place] [address], [place] [id number] 20 Nov, 2011 [facility] [address] [id number] [address] [place] [address], [place] [address] 15 Nov, 2011 [facility] [address] [id number] [address] [place] [address], [place] [address] 10 Nov, 2011 [facility] [address] [id number] [address] [place] [address], [place] [id number] 03 Oct, 2011 [facility] [address] [id number] [address] [place] [address], [place] [id number] 14 Sep, 2011 [facility] [address] [id number] [address] [place] [address], [place] [id number] 14 Sep, 2011 [facility] [address] [id number] [address] [place] [address], [place] [address] Sep, [facility] [address] [id number] [address] [place] [address], [place] [id number] Aug, [facility] [address] [id number] [address] [place] [address], [place] [address] Aug, [facility] [address] [id number] [address] [place] [address], [place] [address] Jul, [facility] [address] [id number] [address] [place] [address], [place] [address] Jul, [facility] [address] [id number] [address] [place] [address], [place] [address] 18 Jun, 2010 [facility] [address] [id number] [address] [place] [address], [place] [id number] 17 Nov, 2009 [facility] [address] [id number] [address] [place] [address], [place] [address] Aug, [facility] [address] [id number] [address] [place] [address], [place] [id number] Mar, [facility] [address] [id number] [address] [place] [address], [place] [address] Nov, IMMUNIZATIONS No Known Immunizations SOCIAL HISTORY Never Assessed REASON FOR VISIT PLAN OF CARE VITAL SIGNS Height 65 in 2013-10-27 Weight 234.5 lbs 2013-10-27 Temperature 98 degrees Fahrenheit 2013-10-27 Heart Rate 84 bpm 2013-10-27 Respiratory Rate 20 2013-10-27 Blood pressure systolic 142 mmHg 2013-10-27 Blood pressure diastolic 80 mmHg 2013-10-27 MEDICATIONS Unknown Medications RESULTS No Results PROCEDURES Procedure Date Ordered Result Body Site MRI CHEST SPINE W/O DYE Oct 27, 2013 INSTRUCTIONS MEDICATIONS ADMINISTERED No Known Medications MEDICAL [...]
--- OUTSIDE RECORDS SUMMARY | 2020-03-15 07:03 | XMS REPORT ---
Author Author Marleny Duke Organization [facility] Address [address] [place] [address] Care Team Providers Care Stock Sorter Name Role Phone TAE Duke Unavailable PROBLEMS Type Condition ICD9-CM Code GVJ55-UT Code Onset Dates Condition S tatus SNOMED Code Problem Essential tremor G25.0 Active 609 685103 Problem Major depressive disorder, recurrent episode, moderate deg ree F33.1 Active 47804268 Problem Mitral valve prolapse I34.1 Active 234109897 Problem Hx of fracture of left hip Z87.81 Act west 767459182 Problem Chronic obstructive pulmonary disease, unspecified COPD ty pe J44.9 Active 85954168 Problem Morbid obesity due to excess calories E66.01 Active 036491742 Problem Osteopenia of multiple sites M85.89 A ctive 668459634 Problem Acquired absence of both cervix and uterus Z90.710 Active 272477797 Problem Family history of colon cancer Z80.0 Active 141839317 Problem Asymptomatic postprocedural ovarian failure E89.40 Active 924742474 Problem Other chronic pain G89.29 Active 8 8399494 Problem Back pain with history of spinal surgery M54.9 Active 883716863 Problem Hyperlipidemia, unspecified hyperlipidemia type E7 8.5 Active 43625189 Problem Colon cancer screening Z12.11 Active 829814310 Problem Post menopausal syndrome N95.1 Activ e [id number] ALLERGIES No Information ENCOUNTERS Encounter Location Date Diagnosis [facility] [address] [facility] [id number] [address] [place] [address] February, [facility] [address] [facility] [id number] [address] [place] [address] Jan, [facility] [address] [facility] [id number] [place] [address] Jan, [facility] [address] [facility] [id number] [address] [place] [address] Jan, Major depressive disorder, r ecurrent episode, moderate degree F33.1 [facility] [address] [place] [id number] [address] [place] [address] Jan, [facility] [place] [address] [address] Dec, Post menopausal syndrome N95.1 [facility] [place] [address] [place] [id number] [place] [address] Dec, Post menopausal syndrome N95.1 and Other chronic pain G89.29 [facility] [place] [address] [place] [id number] [place] [address] Dec, Post menopausal syndrome N95.1 and Acquired absence of both cervix and uterus Z90.710 [facility] [address] [place] [id number] [address] [place] [address] Dec, Major depressive disorder, r ecurrent episode, moderate degree F33.1 [facility] [place] [address] [place] [id number] [place] [address] Nov, Major depressive disorder, recurrent episode, moderate degree F33.1 ; Morbid obesity due to excess calories E66.01 ; Hyperlipidemia, unspecified hyperlipidemia type E78.5 ; Colon cancer screening Z12.11 and Hormone replacement therapy (postmenopausal) Z79.890 [facility] [place] [address] [address] Nov, [facility] [place] [address] [place] [id number] [place] [address] Nov, Lumbar radiculopathy, acute M54.16 [facility] [place] [address] [place] [id number] [address] Nov, Other chronic pain G89.29 [facility] [place] [address] [address] Nov, [facility] [place] [address] [place] [id number] [address]690171 [address] Nov, Hyperlipidemia, unspecified hyperlipidemia type E78.5 [place] [id number] [id number] [address] [place] [address] Nov, [place] [address] [facility] [id number] [address] [place] [address] Oct, Major depressive disorder, r ecurrent episode, moderate degree F33.1 [place] [address] [id number] [address] [place] [address] Oct, Lumbar radiculopathy, acute M54.16 [place] [address] [id number] [address] [place] [address] 17 Oct, 2019 [place] [address] [facility] [id number] [address] [place] [address] Oct, Back pain with history of sp inal surgery M54.9 ; Major depressive disorder, recurrent episode, moderate degree F33.1 ; Osteopenia of multiple sites M85.89 ; Easy bruising R23.8 ; Morbid obesity due to excess calories E66.01 ; Sore throat J02.9 ; Cough R05 ; Therapeutic drug monitoring Z51.81 and Severe back pain M54.9 [place] [address] [facility] [id number] [address] [place] [address] Oct, Major depressive disorder, r ecurrent episode, moderate degree F33.1 [place] [address] [facility] [id number] [address] [place] [address] Sep, Lumbar radiculopathy, acute M54.16 [place] [address] [id number] [address] [place] [address] Sep, [place] [address] [facility] [id number] [address] [place] [address] Sep, Laryngitis J04.0 ; Asymptoma tic menopausal state Z78.0 and Hx of fracture of left hip Z87.81 [place] [address] [facility] [id number] [address] [place] [address] Sep, Major depressive disorder, r ecurrent episode, moderate degree F33.1 [facility] [address] [facility] [id number] [address] [place] [address] Sep, [facility] [address] [facility] [id number] [address] [place] [address] Aug, [facility] [address] [facility] [id number] [address] [place] [address] Aug, [facility] [address] [facility] [id number] [address] [place] [address] Aug, Family history of colon canc er Z80.0 ; Chronic obstructive pulmonary disease, unspecified COPD type J44.9 ; Essential tremor G25.0 ; Mitral valve prolapse I34.1 ; Other chronic pain G89.29 ; Hx of fracture of left hip Z87.81 and Encounter for immunization Z23 [place] [address] [facility] [id number] [address] [place] [address] Aug, Major depressive disorder, r ecurrent episode, moderate degree F33.[address] [place], [place] [address] Aug, Muscle spasm M62.838 ; Sever e back pain M54.9 and Hx of spinal surgery Z98.[address] [id number], [place] [address] Aug, [facility] [address] [facility] [id number] [place] [address] Aug, Sore throat J02.9 ; Cough R05 and Viral upper respiratory illness J06.9 [facility] [address] [facility] [id number] [address] [place] [address] Aug, Major depressive disorder, r ecurrent episode, moderate degree F33.[address] [id number] [place] [address] Jul, [address] 340[id number], [place] [address] Jul, [facility] [place] [address] [id number] [place] [address] Jul, [facility] [place] [address] 340[place] [id number] [place] [address] Jul, [facility] [address] [id number] [place] [address] Jul, Major depressive disorder, r ecurrent episode, moderate degree F33.1 [facility] [address] [id number] [address] [place] [address] Jul, [address] [place] [id number], [place] [address] Jul, [facility] [address] [facility] [id number] [address] [place] [address] Jul, Encounter for immunization Z 23 [facility] [place] [address] 340[place] [id number], [place] [address] Jul, Restrictive airway disease J 98.[address] [place] [id number], [place] [address] Jul, Screening for breast cancer Z12.39 [facility] [address] [facility] [id number] [address] [place] [address] Jul, Major depressive disorder, r ecurrent episode, moderate degree F33.1 [facility] [place] [address] [id number], [place] [address] Jun, [facility] [place] [address] 340[address] [id number], [place] [address] Jun, [facility] [place] [address] 340[place] [id number], [place] [address] Jun, Shortness of breath R06.02 [facility] [place] [address] 340[place] [id number], [place] [address] Jun, Shortness of breath R06.02 [facility] [place] [address] 340[place] [id number], [place] [address] 24 Jun, 2019 Shortness of breath R06.02 a nd Restrictive lung disease J98.4 [place] [address] [place] [id number] [address] [place] [address] 23 Jun, 2019 Major depressive disorder, r ecurrent episode, moderate degree F33.[address] [id number], [place] [address] Jun, [place] [address] [facility] [id number] [address] [place] [address] 18 Jun, 2019 History of tobacco use Z87.8 91 ; Screening for breast cancer Z12.39 and Trigger point M79.[address] [id number], [place] [address] Jun, [address] [id number], [place] [address] Jun, Major depressive disorder, r ecurrent episode, moderate degree F33.1 ; Trigger point M79.10 ; History of tobacco use Z87.891 and Screening for breast cancer Z12.39 [place] [address] [place] [id number] [address] [place] [address] Jun, Major depressive disorder, r ecurrent episode, moderate degree F33.1 [place] [id number] [place] [address] May, Major depressive disorder, r ecurrent episode, moderate degree F33.[address] [id number], [place] [address] May, Essential tremor G25.0 ; Can dida rash of groin B37.89 and History of hypertension Z86.[address] [id number], [place] [address] May, [address] [id number], [place] [address] May, [place] [address] [place] [id number] [address] [address] May, Major depressive disorder, r ecurrent episode, moderate degree F33.1 [facility] [place] [facility] [address] [place], [place] [address]VD 340B [id number] [place] [address] Apr, [facility] [place] [address] [facility] [id number] [place] [address] Apr, [facility] [address] [id number] [place] [address] Mar, [facility] [place] [facility] [address] [place] [address] [id number] [place] [address] Mar, [facility] [place] [address] [id number] [place] [address] Mar, [facility] [place] [address] [id number] [place] [address] Mar, [facility] [facility] [address] [place] [address] 340[place] [id number] [place] [address] Mar, [facility] [place] [address] [facility] [id number] [place] [address] Mar, Spinal stenosis of lumbar region without neurogenic claudication M48.061 [facility] [place] [address] [facility] [id number] [place] [address] Mar, Therapeutic drug monitoring Z51.81 [facility] [place] [facility] [address] [place] [address] [address]VD 340B [id number] [place] [address] February, Therapeutic drug monitoring Z51.81 [facility] [place] [facility] [address] [place] [address] [address] 340B [id number] [place] [address] Jan, [facility] [place] [facility] [address] [place] [address] 340[place] [id number] [place] [address] Jan, [facility] [place] [facility] [address] [place] [address] 340[place] [id number] [place] [address] Jan, [facility] [place] [facility] [address] [place] [address] 340[place] [id number] [place] [address] Dec, [facility] [place] [address] 340[address] [id number] [place] [address] Dec, [facility] [place] [address] [id number] [place] [address] Dec, [facility] [place] [address] 340[place] [id number] [place] [address] Nov, [facility] [place] [address] [id number] [place] [address] Nov, [facility] [address] [id number] [address] [place] [id number] Sep, Dental examination Z01.20 [facility] [address] [id number] [address] [place] [address] [id number] 10 Jun, 2015 Dental examination V72.2 [facility] [address] [id number] [address] [place] [address] Jan, [facility] [address] [id number] [address] [place] [address] Jan, [facility] [address] [id number] [address] [place] [address] Oct, [facility] [address] [id number] [address] [place] [address] Oct, [facility] [address] [id number] [address] [place] [address] Jul, [facility] [address] [id number] [address] [place] [address] Jul, [facility] [address] [id number] [address] [place] [address] Jun, [facility] [address] [id number] [address] [place] [address] Jun, [facility] [address] [id number] [address] [place] [address] May, [facility] [place] [facility] [address] [id number] [address] [place] [address], [place] [address] May, [facility] [place] [facility] [address] [id number] [address] [place] [address], [place] [address] May, [facility] [place] [facility] [address] [id number] [address] [place] [address], [place] [address] May, [facility] [place] [facility] [address] [id number] [address] [place] [address], [place] [address] May, [facility] [place] [facility] [address] [id number] [address] [place] [address], [place] [address] May, [facility] [place] [facility] [address] [id number] [address] [place] [address], [place] [address] May, [facility] [place] [facility] [address] [id number] [address] [place] [address], [place] [address] May, [facility] [place] [facility] [address] [id number] [address] [place] [address], [place] [address] Apr, [facility] [place] [facility] [address] [id number] [address] [place] [address], [place] [address] Apr, [facility] [place] [facility] [address] [id number] [address] [place] [address], [place] [address] Apr, [facility] [place] [facility] [address] [id number] [address] [place] [address], [place] [address] Apr, [facility] [place] [facility] [address] [id number] [address] [place] [address], [place] [address] Apr, [facility] [place] [facility] [address] [id number] [address] [place] [address], [place] [address] Apr, [facility] [place] [facility] [address] [id number] [address] [place] [address], [place] [address] Apr, [facility] [place] [facility] [address] [id number] [address] [place] [address], [place] [address] Apr, [facility] [place] [facility] [address] [id number] [address] [place] [address], [place] [address] Apr, 2013 [facility] [address] [id number] [address] [place] [address], [place] [address] Apr, 2013 [facility] [place] [facility] [address] [id number] [address] [place] [address], [place] [address] Apr, 2013 [facility] [place] [facility] [address] [id number] [address] [place] [address], [place] [address] Apr, 2013 [facility] [place] [facility] [address] [id number] [address] [place] [address], [place] [address] Apr, 2013 [facility] [place] [facility] [address] [id number] [address] [place] [address], [place] [address] Apr, 2013 [facility] [place] [facility] [address] [id number] [address] [place] [address], [place] [address] Apr, 2013 [facility] [address] [id number] [address] [place] [address], [place] [address] Apr, [facility] [place] [facility] [address] [id number] [address] [place] [address], [place] [address] Apr, [facility] [place] [facility] [address] [id number] [address] [place] [address], [place] [address] Mar, [facility] [place] [facility] [address] [id number] [address] [place] [address], [place] [address] Mar, [facility] [place] [facility] [address] [id number] [address] [place] [address], [place] [address] Mar, [facility] [place] [facility] [address] [id number] [address] [place] [address], [place] [address] Mar, [facility] [place] [facility] [address] [id number] [address] [place] [address], [place] [address] Mar, [facility] [place] [facility] [address] [id number] [address] [place] [address], [place] [address] Mar, [facility] [place] [facility] [address] [id number] [address] [place] [address], [place] [address] Mar, [facility] [place] [facility] [address] [id number] [facility] [place] [address] Mar, [facility] [address] [id number] [facility] [place] [address] Mar, [facility] [place] [facility] [address] [id number] [facility] [place] [address] Mar, [facility] [address] [id number] [facility] [place] [address] Mar, [facility] [address] [id number] [facility] [place] [address] Mar, [facility] [address] [id number] [facility] [place] [address] February, [facility] [place] [facility] [address] [id number] [address] [place] [address], [place] [address] February, [facility] [address] [id number] [address] [place] [address], [place] [address] February, [facility] [address] [id number] [address] [place] [address], [place] [address] February, [facility] [address] [id number] [address] [place] [address], [place] [address] February, [facility] [address] [id number] [address] [place] [address], [place] [address] February, [facility] [place] [facility] [address] [id number] [address] [place] [address], [place] [address] February, [facility] [address] [id number] [address] [place] [address], [place] [address] February, [facility] [place] [facility] [address] [id number] [address] [place] [address], [place] [address] February, [facility] [place] [facility] [address] [id number] [facility] [place] [address] February, [facility] [place] [facility] [address] [id number] [address] [place] [address], [place] [address] February, [facility] [address] [id number] [facility] [place] [address] February, [facility] [place] [facility] [address] [id number] [address] [place] [address], [place] [address] Jan, [facility] [place] [facility] [address] [id number] [address] [place] [address], [place] [address] Jan, [facility] [place] [facility] [address] [id number] [address] [place] [address], [place] [address] Jan, [facility] [address] [id number] [address] [place] [address], [place] [address] Jan, [facility] [place] [facility] [address] [id number] [address] [place] [address], [place] [address] Jan, [facility] [place] [facility] [address] [id number] [address] [place] [address], [place] [address] Jan, [facility] [place] [facility] [address] [id number] [address] [place] [address], [place] [address] Dec, [facility] [place] [facility] [address] [id number] [address] [place] [address], [place] [address] Dec, [facility] [place] [facility] [address] [id number] [address] [place] [address], [place] [address] Dec, [facility] [place] [facility] [address] [id number] [address] [place] [address], [place] [address] Dec, [facility] [place] [facility] [address] [id number] [address] [place] [address], [place] [address] Dec, [facility] [place] [facility] [address] [id number] [address] [place] [address], [place] [address] Dec, [facility] [place] [facility] [address] [id number] [address] [place] [address], [place] [address] Nov, [facility] [place] [facility] [address] [id number] [address] [place] [address], [place] [address] Nov, [facility] [place] [facility] [address] [id number] [address] [place] [address] 14 Nov, 2013 [facility] [address] [id number] [address] [place] [address], [place] [address] 14 Nov, 2013 [facility] [address] [id number] [address] [place] [address], [place] [address] Oct, [facility] [address] [id number] [address] [place] [address], [place] [address] Oct, [facility] [address] [id number] [address] [place] [address], [place] [address] 15 Oct, 2013 [facility] [address] [id number] [address] [place] [address], [place] [address] Oct, [facility] [address] [id number] [address] [place] [address], [place] [address] Oct, [facility] [address] [id number] [address] [place] [address], [place] [address] Oct, [facility] [address] [id number] [address] [place] [address], [place] [address] Oct, [facility] [address] [id number] [address] [place] [address], [place] [address] Oct, [facility] [address] [id number] [address] [place] [address], [place] [address] Oct, [facility] [address] [id number] [address] [place] [address], [place] [address] Sep, [facility] [address] [id number] [address] [place] [address], [place] [address] Sep, [facility] [address] [id number] [address] [place] [address], [place] [address] Sep, [facility] [address] [id number] [address] [place] [address], [place] [address] Sep, [facility] [address] [id number] [address] [place] [address], [place] [address] 16 Sep, 2013 [facility] [address] [id number] [address] [place] [address], [place] [address] Sep, [facility] [address] [id number] [address] [place] [address], [place] [address] Sep, [facility] [address] [id number] [address] [place] [address], [place] [address] Aug, [facility] [address] [id number] [address] [place] [address], [place] [address] Aug, [facility] [address] [id number] [address] [place] [address], [place] [address] Jul, [facility] [address] [id number] [address] [place] [address], [place] [address] 28 Jul, 2013 [facility] [address] [id number] [address] [place] [address], [place] [address] 14 Jul, 2013 [facility] [address] [id number] [address] [place] [address] 14 Jul, 2013 [facility] [address] [id number] [address] [place] [address], [place] [address] Jul, [facility] [address] [id number] [address] [place] [address] Jul, [facility] [address] [id number] [address] [place] [address] 25 Jun, 2013 [facility] [address] [id number] [address] [place] [address] 16 Jun, 2013 [facility] [address] [id number] [address] [place] [address], [place] [address] 13 Jun, 2013 [facility] [address] [id number] [address] [place] [address], [place] [address] 30 May, 2013 [facility] [place] [facility] [address] [id number] [address] [place] [address] May, [facility] [facility] [address] [id number] [address] [place] [address] Apr, [facility] [address] [id number] [address] [place] [address], [place] [address] Apr, [facility] [address] [id number] [address] [place] [address], [place] [address] Apr, [facility] [address] [id number] [address] [place] [address], [place] [address] Mar, [facility] [address] [id number] [address] [place] [address], [place] [address] Mar, [facility] [address] [id number] [address] [place] [address], [place] [address] February, [facility] [address] [id number] [address] [place] [address], [place] [address] February, [facility] [address] [id number] [address] [place] [address], [place] [address] Jan, [facility] [address] [id number] [address] [place] [address], [place] [address] Jan, [facility] [address] [id number] [address] [place] [address], [place] [address] Dec, [facility] [address] [id number] [address] [place] [address], [place] [address] Nov, [facility] [address] [id number] [address] [place] [address], [place] [address] Nov, [facility] [address] [id number] [address] [place] [address], [place] [address] Nov, [facility] [address] [id number] [address] [place] [address], [place] [address] Oct, [facility] [address] [id number] [address] [place] [address], [place] [address] Aug, [facility] [address] [id number] [address] [place] [address], [place] [address] Aug, [facility] [address] [id number] [address] [place] [address], [place] [address] 08 Aug, 2012 [facility] [address] [id number] [address] [place] [address], [place] [address] Aug, [facility] [address] [id number] [address] [place] [address], [place] [address] 26 Jun, 2012 [facility] [address] [id number] [address] [place] [address], [place] [address] 10 Jun, 2012 [facility] [address] [id number] [address] [place] [address], [place] [address] 08 Jun, 2012 [facility] [address] [id number] [address] [place] [address], [place] [address] Jun, [facility] [address] [id number] [address] [place] [address], [place] [address] 05 Jun, 2012 [facility] [address] [id number] [address] [place] [address], [place] [address] May, [facility] [address] [id number] [address] [place] [address], [place] [address] May, [facility] [address] [id number] [address] [place] [address], [place] [address] May, [facility] [address] [id number] [address] [place] [address], [place] [address] May, [facility] [address] [id number] [address] [place] [address], [place] [address] Mar, [facility] [address] [id number] [address] [place] [address], [place] [address] Mar, [facility] [address] [id number] [address] [place] [address], [place] [address] February, [facility] [address] [id number] [address] [place] [address], [place] [address] February, [facility] [address] [id number] [address] [place] [address], [place] [address] 25 Jan, 2012 [facility] [address] [id number] [address] [place] [address], [place] [address] 17 Jan, 2012 [facility] [address] [id number] [address] [place] [address], [place] [address] 13 Jan, 2012 [facility] [address] [id number] [address] [place] [address], [place] [address] Jan, [facility] [address] [id number] [address] [place] [address], [place] [address] 11 Jan, 2012 [facility] [address] [id number] [address] [place] [address], [place] [address] 20 Nov, 2011 [facility] [address] [id number] [address] [place] [address], [place] [address] 15 Nov, 2011 [facility] [address] [id number] [address] [place] [address], [place] [address] 10 Nov, 2011 [facility] [address] [id number] [address] [place] [address], [place] [address] Oct, [facility] [address] [id number] [address] [place] [address], [place] [address] 14 Sep, 2011 [facility] [address] [id number] [address] [place] [address], [place] [address] 14 Sep, 2011 [facility] [address] [id number] [address] [place] [address], [place] [address] Sep, [facility] [address] [id number] [address] [place] [address], [place] [address] Aug, [facility] [address] [id number] [address] [place] [address], [place] [address] Aug, [facility] [address] [id number] [address] [place] [address], [place] [address] Jul, [facility] [address] [id number] [address] [place] [address], [place] [address] Jul, [facility] [address] [id number] [address] [place] [address] 18 Jun, 2010 [facility] [address] [facility] [id number] [address] [place] [address] 17 Nov, 2009 [facility] [address] [facility] [id number] [address] [place] [address] Aug, [facility] [address] [facility] [id number] [address] [place] [address] Mar, [facility] [address] [facility] [id number] [address] [place] [address] Nov, IMMUNIZATIONS No Known Immunizations SOCIAL HISTORY [...]
--- OUTSIDE RECORDS SUMMARY | 2020-03-15 07:03 | XMS REPORT ---
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 Role Phone LIVE DIAZ Unavailable PROBLEMS Type Condition ICD9-CM Code WZI98-MN Code Onset Dates Condition S tatus SNOMED Code Problem Essential tremor G25.0 Active 60 577386 Problem Major depressive disorder, recurrent episode, moderate deg ree F33.1 Active 84730678 Problem Mitral valve prolapse I34.1 Active 715272982 Problem Hx of fracture of left hip Z87.81 Act west 492748054 Problem Chronic obstructive pulmonary disease, unspecified COPD ty pe J44.9 Active 76291228 Problem Morbid obesity due to excess calories E66.01 Active 214512707 Problem Osteopenia of multiple sites M85.89 A ctive 139544807 Problem Acquired absence of both cervix and uterus Z90.710 Active 587795737 Problem Family history of colon cancer Z80.0 Active 120449299 Problem Asymptomatic postprocedural ovarian failure E89.40 Active 536530557 Problem Other chronic pain G89.29 Active 8 5711935 Problem Back pain with history of spinal surgery M54.9 Active 534591479 Problem Hyperlipidemia, unspecified hyperlipidemia type E7 8.5 Active 85168512 Problem Colon cancer screening Z12.11 Active 427179027 Problem Post menopausal syndrome N95.1 Activ e [id number] ALLERGIES No Information ENCOUNTERS Encounter Location Date Diagnosis [facility] [address] [facility] [id number] [address] [place] [address] 09 Jan, 2020 [facility] [address] [facility] [id number] [place] [address] Dec, Post menopausal syndrome N95.1 [facility] [address] [facility] [id number] [place] [address] Dec, Post menopausal syndrome N95.1 and Other chronic pain G89.29 [facility] [address] [id number] [address] Dec, Post menopausal syndrome N95.1 and Acquired absence of both cervix and uterus Z90.710 [facility] [address] [facility] [id number] [address] [place] [address] Dec, Major depressive disorder, r ecurrent episode, moderate degree F33.1 [facility] [id number] [place] [address] Nov, Major depressive disorder, recurrent episode, moderate degree F33.1 ; Morbid obesity due to excess calories E66.01 ; Hyperlipidemia, unspecified hyperlipidemia type E78.5 ; Colon cancer screening Z12.11 and Hormone replacement therapy (postmenopausal) Z79.890 [facility] [id number] [place] [address] Nov, [facility] [id number] [place] [address] Nov, Lumbar radiculopathy, acute M54.16 [facility] [id number] [place] [address] Nov, Other chronic pain G89.29 [facility] [id number] [place] [address] Nov, [facility] [id number] [place] [address] 13 Nov, 2019 Hyperlipidemia, unspecified hyperlipidemia type E78.5 [facility] [address] [facility] [id number] [address] [place] [address] Nov, [facility] [address] [facility] [id number] [address] [place] [address] Oct, Major depressive disorder, r ecurrent episode, moderate degree F33.1 [facility] [address] [facility] [id number] [address] [place] [address] Oct, Lumbar radiculopathy, acute M54.16 [facility] [address] [id number] [address] [place] [address] 17 Oct, 2019 [facility] [address] [id number] [address] [place] [address] 15 Oct, 2019 Back pain with history of sp inal surgery M54.9 ; Major depressive disorder, recurrent episode, moderate degree F33.1 ; Osteopenia of multiple sites M85.89 ; Easy bruising R23.8 ; Morbid obesity due to excess calories E66.01 ; Sore throat J02.9 ; Cough R05 ; Therapeutic drug monitoring Z51.81 and Severe back pain M54.9 [facility] [address] [id number] [address] [place] [address] 07 Oct, 2019 Major depressive disorder, r ecurrent episode, moderate degree F33.1 [facility] [address] [id number] [address] [place] [address] 23 Sep, 2019 Lumbar radiculopathy, acute M54.16 [place] [address] [id number] [address] [place] [address] Sep, [facility] [address] [id number] [address] [place] [address] Sep, Laryngitis J04.0 ; Asymptoma tic menopausal state Z78.0 and Hx of fracture of left hip Z87.81 [facility] [address] [id number] [address] [place] [address] Sep, Major depressive disorder, r ecurrent episode, moderate degree F33.1 [facility] [address] [id number] [address] [place] [address] Sep, [facility] [address] [id number] [address] [place] [address] Aug, [facility] [address] [id number] [address] [place] [address] Aug, [facility] [address] [id number] [address] [place] [address] Aug, Family history of colon canc er Z80.0 ; Chronic obstructive pulmonary disease, unspecified COPD type J44.9 ; Essential tremor G25.0 ; Mitral valve prolapse I34.1 ; Other chronic pain G89.29 ; Hx of fracture of left hip Z87.81 and Encounter for immunization Z23 [facility] [address] [facility] [id number] [address] [place] [address] Aug, Major depressive disorder, r ecurrent episode, moderate degree F33.[address] [id number] [address] Aug, Muscle spasm M62.838 ; Sever e back pain M54.9 and Hx of spinal surgery Z98.[address] [id number], [place] [address] Aug, [facility] [address] [facility] [id number] [place] [address] Aug, Sore throat J02.9 ; Cough R05 and Viral upper respiratory illness J06.9 [facility] [address] [facility] [id number] [address] [place] [address] Aug, Major depressive disorder, r ecurrent episode, moderate degree F33.[address] [id number] [address] Jul, [address] 340 [id number], [place] [address] Jul, [address] [id number], [place] [address] Jul, [address] 340B [id number], [place] [address] Jul, [facility] [address] [facility] [id number] [address] [place] [address] Jul, Major depressive disorder, r ecurrent episode, moderate degree F33.1 [facility] [address] [facility] [id number] [address] [place] [address] Jul, [facility] [address] [id number] [place] [address] Jul, [facility] [address] [facility] [id number] [address] [place] [address] Jul, Encounter for immunization Z 23 [facility] [place] [address] 340B [id number] [place] [address] Jul, Restrictive airway disease J 98.[address] [id number], [place] [address] Jul, Screening for breast cancer Z12.39 [facility] [address] [facility] [id number] [address] [place] [address] Jul, Major depressive disorder, r ecurrent episode, moderate degree F33.1 [facility] [place] [address] [id number], [place] [address] Jun, [address] [id number], [place] [address] Jun, [address] 340[address] [id number], [place] [address] Jun, Shortness of breath R06.[address] 340[place] [id number], [place] [address] Jun, Shortness of breath R06.[address] 340[place] [id number], [place] [address] Jun, Shortness of breath R06.02 a nd Restrictive lung disease J98.4 [facility] [address] [facility] [id number] [address] [place] [address] Jun, Major depressive disorder, r ecurrent episode, moderate degree F33.[address] 340B [id number] [place] [address] Jun, [facility] [address] [facility] [id number] [address] [place] [address] Jun, History of tobacco use Z87.8 91 ; Screening for breast cancer Z12.39 and Trigger point M79.10 [facility] [place] [address] 340[place] [id number], [place] [address] 11 Jun, [address] 340[place] [id number], [place] [address] 10 Jun, 2019 Major depressive disorder, r ecurrent episode, moderate degree F33.1 ; Trigger point M79.10 ; History of tobacco use Z87.891 and Screening for breast cancer Z12.39 [facility] [address] [facility] [id number] [address] [place] [address] Jun, Major depressive disorder, r ecurrent episode, moderate degree F33.1 [facility] [address] [facility] [id number] [address] [place] [address] May, Major depressive disorder, r ecurrent episode, moderate degree F33.[address] 340B [id number], [place] [address] May, Essential tremor G25.0 ; Can dida rash of groin B37.89 and History of hypertension Z86.79 [facility] [place] [address] 340B [id number], [place] [address] May, [facility] [place] [address] 340B [id number], [place] [address] May, [place] [address] [facility] [id number] [address] [place] [address] May, Major depressive disorder, r ecurrent episode, moderate degree F33.1 [facility] [place] [address] 340B [id number], [place] [address] Apr, [facility] [place] [address] [facility] [id number] [place] [address] Apr, [facility] [address] [id number] [place] [address] Mar, [facility] [place] [address] 340B [id number] [place] [address] Mar, [facility] [place] [address] 340B [id number] [place] [address] Mar, [facility] [place] [address] 340B [id number] [place] [address] Mar, [facility] [place] [address] 340B [id number] [place] [address] Mar, [facility] [place] [address] [id number] [place] [address] Mar, Spinal stenosis of lumbar region without neurogenic claudication M48.061 [facility] [place] [address] [id number] [place] [address] Mar, Therapeutic drug monitoring Z51.81 [facility] [place] [address] 340B [id number] [place] [address] February, Therapeutic drug monitoring Z51.81 [facility] [place] [address] 340B [id number] [place] [address] Jan, [facility] [place] [address]B [id number] [place] [address] Jan, [facility] [place] [address] 340B [id number] [place] [address] Jan, [facility] [place] [address] [id number] [place] [address] Dec, [facility] [place] [address] 340B [id number] [place] [address] Dec, [facility] [place] [address] 340B [id number] [place] [address] Dec, [facility] [place] [address] 340B [id number] [place] [address] Nov, [facility] [place] [address] 340B [id number] [place] [address] Nov, [facility] [address] [id number] [address] [place] [address] [id number] 16 Sep, 2016 [facility] Z01.20 [facility] [address] [id number] [address] [place] [id number] 10 Jun, 2015 Dental examination V72.2 [facility] [address] [id number] [address] [place] [address] 14 Jan, 2015 [facility] [address] [id number] [address] [place] [address] Jan, [facility] [address] [id number] [address] [place] [address] Oct, [facility] [address] [id number] [address] [place] [address] Oct, [facility] [address] [id number] [address] [place] [address] Jul, [facility] [address] [id number] [address] [place] [address] Jul, [facility] [address] [id number] [address] [place] [address] Jun, [facility] [address] [id number] [address] [place] [address] Jun, [facility] [address] [id number] [address] [place] [address] May, [facility] [address] [id number] [address] [place] [address] May, [facility] [address] [id number] [address] [place] [address] May, [facility] [address] [id number] [address] [place] [address] May, [facility] [address] [id number] [address] [place] [address] May, [facility] [address] [id number] [address] [place] [address] May, [facility] [address] [id number] [address] [place] [address], [place] [address] May, [facility] [address] [id number] [address] [place] [address], [place] [address] May, [facility] [address] [id number] [address] [place] [address], [place] [address] Apr, [facility] [address] [id number] [address] [place] [address], [place] [address] Apr, [facility] [address] [id number] [address] [place] [address], [place] [address] Apr, [facility] [address] [id number] [address] [place] [address], [place] [address] Apr, [facility] [address] [id number] [address] [place] [address], [place] [address] Apr, [facility] [address] [id number] [address] [place] [address], [place] [address] Apr, [facility] [address] [id number] [address] [place] [address], [place] [address] Apr, [facility] [address] [id number] [address] [place] [address], [place] [address] Apr, [facility] [address] [id number] [address] [place] [address], [place] [address] Apr, [facility] [address] [id number] [address] [place] [address], [place] [address] Apr, [facility] [address] [id number] [address] [place] [address], [place] [address] Apr, [facility] [address] [id number] [address] [place] [address], [place] [address] Apr, [facility] [address] [id number] [address] [place] [address], [place] [address] Apr, [facility] [address] [id number] [facility] [place] [address] Apr, [facility] [address] [id number] [facility] [place] [address] Apr, [facility] [address] [id number] [address] [place] [address], [place] [address] Apr, [facility] [address] [id number] [address] [place] [address], [place] [address] Apr, [facility] [address] [id number] [address] [place] [address], [place] [address] Mar, [facility] [address] [id number] [address] [place] [address], [place] [address] Mar, [facility] [address] [id number] [address] [place] [address], [place] [address] Mar, [facility] [address] [id number] [address] [place] [address], [place] [address] Mar, [facility] [address] [id number] [address] [place] [address], [place] [address] Mar, [facility] [address] [id number] [address] [place] [address], [place] [address] Mar, [facility] [address] [id number] [address] [place] [address], [place] [address] Mar, [facility] [address] [id number] [address] [place] [address], [place] [address] Mar, [facility] [address] [id number] [address] [place] [address], [place] [address] Mar, [facility] [address] [id number] [address] [place] [address], [place] [address] Mar, [facility] [address] [id number] [address] [place] [address], [place] [address] Mar, [facility] [address] [id number] [address] [place] [address], [place] [address] Mar, [facility] [address] [id number] [facility] [place] [address] February, [facility] [address] [id number] [address] [place] [address], [place] [address] February, [facility] [address] [id number] [address] [place] [address], [place] [address] February, [facility] [address] [id number] [address] [place] [address], [place] [address] February, [facility] [address] [id number] [address] [place] [address], [place] [address] February, [facility] [address] [id number] [address] [place] [address], [place] [address] February, [facility] [address] [id number] [address] [place] [address], [place] [address] February, [facility] [address] [id number] [address] [place] [address], [place] [address] February, [facility] [address] [id number] [address] [place] [address], [place] [address] February, [facility] [address] [id number] [address] [place] [address], [place] [address] February, [facility] [address] [id number] [address] [place] [address], [place] [address] February, [facility] [address] [id number] [address] [place] [address], [place] [address] February, [facility] [address] [id number] [address] [place] [address], [place] [address] Jan, [facility] [address] [id number] [address] [place] [address], [place] [address] Jan, [facility] [address] [id number] [address] [place] [address], [place] [address] Jan, [facility] [address] [id number] [address] [place] [address], [place] [address] 09 Jan, 2014 [facility] [address] [id number] [address] [place] [address], [place] [address] Jan, [facility] [address] [id number] [address] [place] [address], [place] [address] Jan, [facility] [address] [id number] [address] [place] [address], [place] [address] Dec, [facility] [address] [id number] [address] [place] [address], [place] [address] Dec, [facility] [address] [id number] [address] [place] [address], [place] [address] Dec, [facility] [address] [id number] [address] [place] [address], [place] [address] Dec, [facility] [address] [id number] [address] [place] [address], [place] [address] Dec, [facility] [address] [id number] [address] [place] [address], [place] [address] Dec, [facility] [address] [id number] [address] [place] [address], [place] [address] Nov, [facility] [address] [id number] [address] [place] [address], [place] [address] Nov, [facility] [address] [id number] [address] [place] [address], [place] [address] Nov, [facility] [address] [id number] [address] [place] [address], [place] [address] Nov, [facility] [address] [id number] [address] [place] [address], [place] [address] Oct, [facility] [address] [id number] [address] [place] [address], [place] [address] Oct, [facility] [address] [id number] [address] [place] [address], [place] [id number] 15 Oct, 2013 [facility] [address] [id number] [address] [place] [address], [place] [id number] 15 Oct, 2013 [facility] [address] [id number] [address] [place] [address], [place] [id number] Oct, [facility] [address] [id number] [address] [place] [address], [place] [id number] Oct, [facility] [address] [id number] [address] [place] [address], [place] [address] Oct, [facility] [address] [id number] [address] [place] [address], [place] [address] Oct, [facility] [address] [id number] [address] [place] [address], [place] [id number] Oct, [facility] [address] [id number] [address] [place] [address], [place] [address] Sep, [facility] [address] [id number] [address] [place] [address], [place] [id number] 30 Sep, 2013 [facility] [address] [id number] [address] [place] [address], [place] [id number] Sep, [facility] [address] [id number] [address] [place] [address], [place] [id number] Sep, [facility] [address] [id number] [address] [place] [address], [place] [address] 16 Sep, 2013 [facility] [address] [id number] [address] [place] [address], [place] [id number] 13 Sep, 2013 [facility] [address] [id number] [address] [place] [address], [place] [address] Sep, [facility] [address] [id number] [address] [place] [address], [place] [id number] Aug, [facility] [address] [id number] [address] [place] [address], [place] [id number] Aug, [facility] [address] [id number] [address] [place] [address], [place] [id number] 28 Jul, 2013 [facility] [address] [id number] [address] [place] [address], [place] [id number] 28 Jul, 2013 [facility] [address] [id number] [address] [place] [address], [place] [id number] 14 Jul, 2013 [facility] [address] [id number] [address] [place] [address], [place] [id number] 14 Jul, 2013 [facility] [address] [id number] [address] [place] [address], [place] [id number] Jul, [facility] [address] [id number] [address] [place] [address], [place] [address] Jul, [facility] [address] [id number] [address] [place] [address], [place] [id number] 25 Jun, 2013 [facility] [address] [id number] [address] [place] [address], [place] [id number] 16 Jun, 2013 [facility] [facility] [address] [id number] [address] [place] [address], [place] [address] Jun, [facility] [address] [id number] [address] [place] [address], [place] [id number] 30 May, 2013 [facility] [address] [id number] [address] [place] [address], [place] [address] May, [facility] [address] [id number] [address] [place] [address], [place] [address] Apr, [facility] [address] [id number] [address] [place] [address], [place] [address] Apr, [facility] [address] [id number] [address] [place] [address], [place] [address] Apr, [facility] [address] [id number] [address] [place] [address], [place] [address] Mar, [facility] [address] [id number] [address] [place] [address], [place] [id number] Mar, [facility] [address] [id number] [address] [place] [address], [place] [id number] February, [facility] [address] [id number] [address] [place] [address], [place] [address] February, [facility] [address] [id number] [address] [place] [address], [place] [address] Jan, [facility] [address] [id number] [address] [place] [address], [place] [address] Jan, [facility] [address] [id number] [address] [place] [address], [place] [id number] Dec, [facility] [address] [id number] [address] [place] [address], [place] [address] Nov, [facility] [address] [id number] [address] [place] [address], [place] [address] Nov, [facility] [address] [id number] [address] [place] [address], [place] [address] Nov, [facility] [address] [id number] [address] [place] [address], [place] [address] Oct, [facility] [address] [id number] [address] [place] [address], [place] [address] Aug, [facility] [address] [id number] [address] [place] [address], [place] [address] Aug, [facility] [address] [id number] [address] [place] [address], [place] [address] Aug, [facility] [address] [id number] [address] [place] [address], [place] [address] Aug, [facility] [address] [id number] [address] [place] [address], [place] [address] Jun, [facility] [address] [id number] [address] [place] [address], [place] [address] 10 Jun, 2012 [facility] [address] [id number] [address] [place] [address], [place] [address] 08 Jun, 2012 [facility] [address] [id number] [address] [place] [address], [place] [id number] 07 Jun, 2012 [facility] [address] [id number] [address] [place] [address], [place] [address] 05 Jun, 2012 [facility] [address] [id number] [address] [place] [address], [place] [address] May, [facility] [address] [id number] [address] [place] [address], [place] [id number] 14 May, 2012 [facility] [address] [id number] [address] [place] [address], [place] [address] May, [facility] [address] [id number] [address] [place] [address], [place] [address] May, [facility] [address] [id number] [address] [place] [address], [place] [address] Mar, [facility] [address] [id number] [address] [place] [address], [place] [address] Mar, [facility] [address] [id number] [address] [place] [address], [place] [address] February, [facility] [address] [id number] [address] [place] [address], [place] [address] February, [facility] [address] [id number] [address] [place] [address], [place] [id number] Jan, [facility] [address] [id number] [address] [place] [address], [place] [id number] 17 Jan, 2012 [facility] [address] [id number] [address] [place] [address], [place] [id number] 13 Jan, 2012 [facility] [address] [id number] [address] [place] [address], [place] [address] 12 Jan, 2012 [facility] [address] [id number] [address] [place] [address], [place] [id number] 11 Jan, 2012 [facility] [address] [id number] [address] [place] [address], [place] [id number] 20 Nov, 2011 [facility] [address] [id number] [address] [place] [address], [place] [id number] 15 Nov, 2011 [facility] [address] [id number] [address] [place] [address], [place] [address] 10 Nov, 2011 [facility] [address] [id number] [address] [place] [address], [place] [id number] 03 Oct, 2011 [facility] [address] [id number] [address] [place] [address], [place] [address] 14 Sep, 2011 [facility] [address] [id number] [address] [place] [address], [place] [address] 14 Sep, 2011 [facility] [address] [id number] [address] [place] [address], [place] [id number] Sep, [facility] [address] [id number] [address] [place] [address], [place] [address] Aug, [facility] [address] [id number] [address] [place] [address], [place] [address] Aug, [facility] [address] [id number] [address] [place] [address], [place] [address] Jul, [facility] [address] [id number] [address] [place] [address], [place] [id number] Jul, [facility] [address] [id number] [address] [place] [address], [place] [id number] 18 Jun, 2010 [facility] [address] [id number] [address] [place] [address], [place] [id number] 17 Nov, 2009 [facility] [address] [id number] [address] [place] [address], [place] [address] Aug, [facility] [address] [id number] [address] [place] [address], [place] [address] Mar, [facility] [address] [id number] [address] [place] [address], [place] [address] Nov, IMMUNIZATIONS No Known Immunizations SOCIAL HISTORY [...]
--- OUTSIDE RECORDS SUMMARY | 2020-03-15 07:04 | XMS REPORT ---
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 Name Role Phone LIVE DIAZ Unavailable PROBLEMS Type Condition ICD9-CM Code KST46-JN Code Onset Dates Condition S tatus SNOMED Code Problem Essential tremor G25.0 Active 609 690888 Problem Major depressive disorder, recurrent episode, moderate deg ree F33.1 Active 34278593 Problem Mitral valve prolapse I34.1 Active 907161827 Problem Hx of fracture of left hip Z87.81 Act west 189221662 Problem Chronic obstructive pulmonary disease, unspecified COPD ty pe J44.9 Active 21432974 Problem Morbid obesity due to excess calories E66.01 Active 515409853 Problem Osteopenia of multiple sites M85.89 A ctive 481368336 Problem Acquired absence of both cervix and uterus Z90.710 Active 510005400 Problem Family history of colon cancer Z80.0 Active 442342756 Problem Asymptomatic postprocedural ovarian failure E89.40 Active 551510662 Problem Other chronic pain G89.29 Active 8 4164558 Problem Back pain with history of spinal surgery M54.9 Active 779097131 Problem Hyperlipidemia, unspecified hyperlipidemia type E7 8.5 Active 40899065 Problem Colon cancer screening Z12.11 Active 330439061 Problem Post menopausal syndrome N95.1 Activ e [id number] ALLERGIES No Information ENCOUNTERS Encounter Location Date Diagnosis [facility] [address] [id number] [place] [address] Jan, [facility] [address] [id number] [place] [address] 18 Dec, 2019 [facility] [address] [id number] [place] [address] 05 Dec, 2019 Post menopausal syndrome N95.1 and Acquired absence of both cervix and uterus Z90.710 [facility] [address] [address] Dec, Major depressive disorder, recurrent epi sode, moderate degree F33.1 [facility] [address] [address] Nov, Major depressive disorder, recurrent episode, moderate degree F33.1 ; Morbid obesity due to excess calories E66.01 ; Hyperlipidemia, unspecified hyperlipidemia type E78.5 ; Colon cancer screening Z12.11 and Hormone replacement therapy (postmenopausal) Z79.890 [facility] [address] [address] Nov, [facility] [address] [address] Nov, Lumbar radiculopathy, acute M54.16 [facility] [address] [address] Nov, Other chronic pain G89.29 [facility] [address] [address] Nov, [facility] [address] [address] Nov, Hyperlipidemia, unspecified hyperlipidemia type E78.5 [place] [address] [address] Nov, [place] [address] [address] Oct, Major depressive disorder, recurrent epi sode, moderate degree F33.1 [place] [address] [address] Oct, Lumbar radiculopathy, acute M54.16 [place] [address] [address] 17 Oct, 2019 [place] [address] [address] Oct, Back pain with history of spinal surgery M54.9 ; Major depressive disorder, recurrent episode, moderate degree F33.1 ; Osteopenia of multiple sites M85.89 ; Easy bruising R23.8 ; Morbid obesity due to excess calories E66.01 ; Sore throat J02.9 ; Cough R05 ; Therapeutic drug monitoring Z51.81 and Severe back pain M54.9 [place] [address] [address] 07 Oct, 2019 Major depressive disorder, recurrent epi sode, moderate degree F33.1 [place] [address] [address] Sep, Lumbar radiculopathy, acute M54.16 [place] [address] [address] Sep, [place] [address] [address] Sep, Laryngitis J04.0 ; Asymptomatic menopaus al state Z78.0 and Hx of fracture of left hip Z87.81 [place] [address] [address] Sep, Major depressive disorder, recurrent epi sode, moderate degree F33.1 [place] [address] [address] Sep, [place] [address] [address] Aug, [place] [address] [address] Aug, [address] [address] Aug, Family history of colon cancer Z80.0 ; C hronic obstructive pulmonary disease, unspecified COPD type J44.9 ; Essential tremor G25.0 ; Mitral valve prolapse I34.1 ; Other chronic pain G89.29 ; Hx of fracture of left hip Z87.81 and Encounter for immunization Z23 [place] [address] [address] Aug, Major depressive disorder, recurrent epi sode, moderate degree F33.[address] [place] [address] Aug, Muscle spasm M62.838 ; Sever e back pain M54.9 and Hx of spinal surgery Z98.[address] [place] [address] Aug, [facility] [address] [facility] [id number] [place] [address] Aug, Sore throat J02.9 ; Cough R05 and Viral upper respiratory illness J06.9 [facility] [address] [id number] [place] [address] Aug, Major depressive disorder, recurrent epi sode, moderate degree F33.1 [address] [place] [address] Jul, [address] [place] [address] Jul, [address] [place] [address] Jul, [address] [place] [address] Jul, [facility] [address] [id number] [place] [address] Jul, Major depressive disorder, recurrent epi sode, moderate degree F33.1 [facility] [address] [id number] [place] [address] Jul, [address] [place] [address] Jul, [facility] [address] [place] [id number] [place] [address] Jul, Encounter for immunization Z23 [address] [place] [address] Jul, Restrictive airway disease J 98.[address] [place] [address] Jul, Screening for breast cancer Z12.39 [facility] [address] [id number] [place] [address] Jul, Major depressive disorder, recurrent epi sode, moderate degree F33.1 [address] [place] [address] Jun, [address] [place] [address] Jun, [address] [place] [address] Jun, Shortness of breath R06.02 [address] [place] [address] Jun, Shortness of breath R06.02 [place] [address] [place] [address] Jun, Shortness of breath R06.02 a nd Restrictive lung disease J98.4 [facility] [address] [place] [address] [id number] [place] [address] Jun, Major depressive disorder, recurrent epi sode, moderate degree F33.1 [address] [place] [address] Jun, [place] [address] [place] [id number] [place] [address] Jun, History of tobacco use Z87.891 ; Screeni ng for breast cancer Z12.39 and Trigger point M79.10 [place] [address] [place] [address] Jun, [address] [place] [address] Jun, Major depressive disorder, r ecurrent episode, moderate degree F33.1 ; Trigger point M79.10 ; History of tobacco use Z87.891 and Screening for breast cancer Z12.39 [facility] [address] [id number] [place] [address] Jun, Major depressive disorder, recurrent epi sode, moderate degree F33.1 [facility] [address] [id number] [place] [address] May, Major depressive disorder, recurrent epi sode, moderate degree F33.1 [facility] [place] [address] [place] [address] May, Essential tremor G25.0 ; Can dida rash of groin B37.89 and History of hypertension Z86.79 [facility] [place] [address] [place] [address] May, [facility] [place] [address] [place] [address] May, [facility] [address] [id number] [place] [address] May, Major depressive disorder, recurrent epi sode, moderate degree F33.1 [facility] [place] [address] [place] [address] Apr, [facility] [place] [address] [id number] [place] [address] Apr, [facility] [address] [place] [address] Mar, [facility] [place] [address] [place] [address] Mar, [facility] [place] [address] [place] [address] Mar, [facility] [address] [place] [address] Mar, [facility] [place] [address] [place] [address] Mar, [facility] [place] [address] [id number] [place] [address] Mar, Spinal stenosis of lumbar region without neurogenic claudication M48.061 [facility] [place] [address] [facility] [id number] [place] [address] Mar, Therapeutic drug monitoring Z51.81 [facility] [place] [address] [place] [address] February, Therapeutic drug monitoring Z51.81 [facility] [place] [address] [place] [address] Jan, [facility] [place] [facility] [facility] [address] [place], [place] [address] [place] [address] Jan, [facility] [place] [address] [place] [address] Jan, [facility] [place] [address] [place] [address] Dec, [facility] [place] [address] [place] [address] Dec, [facility] [place] [address] [place] [address] Dec, [facility] [place] [address] [place] [address] Nov, [facility] [place] [address] [place] [address] Nov, [facility] [address] [id number] [place] [address] Sep, Dental examination Z01.20 [facility] [address] [id number] [place] [address] 10 Jun, 2015 Dental examination V72.2 [facility] [address] [place] [id number] [place] [address] 14 Jan, 2015 [facility] [address] [place] [address] [id number] [place] [address] Jan, [facility] [address] [id number] [place] [address] Oct, [facility] [place] [facility] [address] [facility] [id number] [place] [address] Oct, [facility] [place] [facility] [address] [id number] [place] [address] Jul, [facility] [place] [facility] [address] [id number] [place] [address] Jul, [facility] [place] [facility] [address] [id number] [place] [address] Jun, [facility] [place] [facility] [address] [id number] [place] [address] Jun, 2013 [facility] [place] [facility] [address] [id number] [place] [address] May, [facility] [place] [facility] [address] [id number] [place] [address] May, [facility] [place] [facility] [address] [id number] [place] [address] May, [facility] [place] [facility] [address] [id number] [place] [address] May, [facility] [place] [facility] [address] [id number] [place] [address] May, [facility] [place] [facility] [address] [id number] [place] [address] May, [facility] [place] [facility] [address] [id number] [place] [address] May, [facility] [place] [facility] [address] [id number] [place] [address] May, [facility] [place] [facility] [address] [id number] [place] [address] Apr, [facility] [place] [facility] [address] [id number] [place] [address] Apr, [facility] [place] [facility] [address] [id number] [place] [address] Apr, [facility] [place] [facility] [address] [id number] [place] [address] 16 Apr, 2013 [facility] [place] [facility] [address] [facility] [id number] [facility] [place] [address] 16 Apr, 2013 [facility] [place] [facility] [address] [facility] [id number] [facility] [place] [address] 16 Apr, 2013 [facility] [place] [facility] [address] [facility] [id number] [facility] [place] [place] [address] 15 Apr, 2013 [facility] [place] [facility] [address] [facility] [id number] [facility] [place] [place] [address] 15 Apr, 2013 [facility] [place] [facility] [address] [facility] [id number] [facility] [place] [place] [address] Apr, 2013 [facility] [place] [facility] [address] [facility] [id number] [place] [address] Apr, 2013 [facility] [place] [facility] [address] [id number] [place] [address] Apr, 2013 [facility] [place] [facility] [address] [id number] [facility] [place] [place] [address] Apr, 2013 [facility] [place] [facility] [address] [facility] [id number] [place] [address] Apr, 2013 [facility] [place] [facility] [address] [id number] [place] [address] Apr, 2013 [facility] [place] [facility] [address] [facility] [id number] [place] [address] Apr, 2013 [facility] [place] [facility] [address] [id number] [place] [address] Apr, 2013 [facility] [place] [facility] [address] [facility] [id number] [place] [address] Apr, 2013 [facility] [place] [facility] [address] [facility] [id number] [place] [address] Mar, 2013 [facility] [place] [facility] [address] [facility] [id number] [place] [address] Mar, 2013 [facility] [place] [facility] [address] [id number] [place] [address] Mar, 2013 [facility] [place] [facility] [address] [facility] [id number] [place] [address] Mar, [facility] [place] [facility] [address] [id number] [place] [address] Mar, [facility] [place] [facility] [address] [facility] [id number] [place] [address] Mar, [facility] [place] [facility] [address] [id number] [place] [address] Mar, [facility] [place] [facility] [address] [id number] [place] [address] Mar, [facility] [place] [facility] [address] [id number] [place] [address] Mar, [facility] [place] [facility] [address] [id number] [place] [address] Mar, [facility] [place] [facility] [address] [id number] [place] [address] Mar, [facility] [place] [facility] [address] [id number] [place] [address] Mar, [facility] [place] [facility] [address] [id number] [place] [address] February, [facility] [place] [facility] [address] [id number] [place] [address] February, [facility] [place] [facility] [address] [id number] [place] [address] February, [facility] [place] [facility] [address] [id number] [place] [address] February, [facility] [place] [facility] [address] [id number] [place] [address] February, [facility] [place] [facility] [address] [id number] [place] [address] February, [facility] [place] [facility] [address] [id number] [place] [address] February, [facility] [place] [facility] [address] [id number] [place] [address] February, [facility] [place] [facility] [address] [id number] [place] [address] February, [facility] [place] [facility] [address] [id number] [place] [address] February, [facility] [place] [facility] [address] [id number] [place] [address] February, [facility] [place] [facility] [address] [id number] [place] [address] February, [facility] [place] [facility] [address] [id number] [place] [address] Jan, [facility] [place] [facility] [address] [id number] [place] [address] Jan, [facility] [place] [facility] [address] [id number] [place] [address] Jan, [facility] [place] [facility] [address] [id number] [place] [address] Jan, [facility] [place] [facility] [address] [id number] [place] [address] Jan, [facility] [place] [facility] [address] [id number] [place] [address] Jan, [facility] [place] [facility] [address] [id number] [place] [address] Dec, [facility] [place] [facility] [address] [id number] [place] [address] Dec, [facility] [place] [facility] [address] [id number] [place] [address] Dec, [facility] [place] [facility] [address] [id number] [place] [address] Dec, [facility] [place] [facility] [address] [id number] [place] [address] Dec, [facility] [place] [facility] [address] [id number] [place] [address] Dec, [facility] [place] [facility] [address] [id number] [place] [address] Nov, [facility] [place] [facility] [address] [id number] [place] [address] Nov, [facility] [place] [facility] [address] [id number] [place] [address] Nov, [facility] [place] [facility] [address] [id number] [place] [address] Nov, [facility] [place] [facility] [address] [id number] [place] [address] Oct, [facility] [place] [facility] [address] [id number] [place] [address] Oct, [facility] [place] [facility] [address] [id number] [place] [address] Oct, [facility] [place] [facility] [address] [id number] [place] [address] Oct, [facility] [place] [facility] [address] [id number] [place] [address] Oct, [facility] [place] [facility] [address] [id number] [place] [address] Oct, [facility] [place] [facility] [address] [id number] [place] [address] Oct, [facility] [place] [facility] [address] [id number] [place] [address] Oct, [facility] [place] [facility] [address] [id number] [place] [address] Oct, [facility] [place] [facility] [address] [id number] [place] [address] Sep, [facility] [place] [facility] [address] [id number] [place] [address] Sep, [facility] [place] [facility] [address] [id number] [place] [address] Sep, [facility] [place] [facility] [address] [id number] [place] [address] Sep, [facility] [place] [facility] [address] [id number] [place] [address] 16 Sep, 2013 [facility] [place] [facility] [address] [facility] [id number] [place] [address] Sep, [facility] [place] [facility] [address] [id number] [place] [address] Sep, [facility] [address] [id number] [place] [address] Aug, [facility] [address] [id number] [place] [address] Aug, [facility] [address] [id number] [place] [address] Jul, [facility] [address] [id number] [place] [address] 28 Jul, 2013 [facility] [address] [id number] [place] [address] 14 Jul, 2013 [facility] [address] [id number] [place] [address] 14 Jul, 2013 [facility] [address] [id number] [place] [address] Jul, [facility] [address] [id number] [place] [address] Jul, [facility] [address] [id number] [place] [address] 25 Jun, 2013 [facility] [address] [id number] [place] [address] 16 Jun, 2013 [facility] [address] [id number] [place] [address] 13 Jun, 2013 [facility] [address] [id number] [place] [address] 30 May, 2013 [facility] [address] [id number] [place] [address] May, [facility] [address] [id number] [place] [address] Apr, [facility] [address] [id number] [place] [address] Apr, [facility] [address] [id number] [place] [address] Apr, [facility] [address] [id number] [place] [address] Mar, [facility] [address] [id number] [place] [address] Mar, [facility] [address] [id number] [place] [address] February, [facility] [address] [id number] [place] [address] February, [facility] [address] [id number] [place] [address] Jan, [facility] [id number] [place] [address] Jan, [facility] [address] [id number] [place] [address] Dec, [facility] [id number] [place] [address] Nov, [facility] [address] [id number] [place] [address] Nov, [facility] [address] [id number] [place] [address] Nov, [facility] [address] [id number] [place] [address] Oct, [facility] [address] [id number] [place] [address] Aug, [facility] [address] [id number] [place] [address] Aug, [facility] [address] [id number] [place] [address] Aug, [facility] [address] [id number] [place] [address] 08 Aug, 2012 [facility] [address] [facility] [id number] [facility] [place] [address] 26 Jun, 2012 [facility] [address] [id number] [place] [address] 10 Jun, 2012 [facility] [address] [id number] [place] [address] 08 Jun, 2012 [facility] [address] [id number] [place] [address] 07 Jun, 2012 [facility] [facility] [address] [id number] [place] [address] 05 Jun, 2012 [facility] [address] [id number] [place] [address] 31 May, 2012 [facility] [address] [id number] [place] [address] 14 May, 2012 [facility] [address] [id number] [place] [address] May, [facility] [address] [id number] [place] [address] May, [facility] [address] [id number] [place] [address] Mar, [facility] [address] [id number] [place] [address] Mar, [facility] [address] [id number] [place] [address] February, [facility] [address] [id number] [place] [address] 15 Feb, 2012 [facility] [address] [id number] [place] [address] 25 Jan, 2012 [facility] [address] [id number] [place] [address] 17 Jan, 2012 [facility] [address] [id number] [place] [address] 13 Jan, 2012 [facility] [address] [id number] [place] [address] 12 Jan, 2012 [facility] [address] [id number] [place] [address] Jan, [facility] [address] [id number] [place] [address] 20 Nov, 2011 [facility] [address] [id number] [place] [address] 15 Nov, 2011 [facility] [address] [id number] [place] [address] 10 Nov, 2011 [facility] [address] [id number] [place] [address] Oct, [facility] [address] [id number] [place] [address] 14 Sep, 2011 [facility] [id number] [place] [address] 14 Sep, 2011 [facility] [id number] [place] [address] Sep, [facility] [address] [id number] [place] [address] Aug, [facility] [id number] [place] [address] Aug, [facility] [id number] [place] [address] Jul, [facility] [address] [id number] [place] [address] Jul, [facility] [address] [id number] [place] [address] Jun, [facility] [id number] [place] [address] 17 Nov, 2009 [facility] [address] [id number] [place] [address] Aug, [facility] [id number] [place] [address] Mar, [facility] [address] [facility] [id number] [place] [address] Nov, IMMUNIZATIONS No Known Immunizations SOCIAL HISTORY [...]
--- OUTSIDE RECORDS SUMMARY | 2020-03-15 07:04 | XMS REPORT ---
Author Author Marleny DIAZ Organization [facility] Address [address] [place] [address] Care Team Providers Care Food Safety Officer Name Role Phone LIVE DIAZ Unavailable PROBLEMS Type Condition ICD9-CM Code [id number] Code Onset Dates Condition S tatus SNOMED Code Problem Essential tremor G25.0 Active 606 716415 Problem Major depressive disorder, recurrent episode, moderate deg ree F33.1 Active 82625628 Problem Mitral valve prolapse I34.1 Active 723464459 Problem Hx of fracture of left hip Z87.81 Act west 216149087 Problem Chronic obstructive pulmonary disease, unspecified COPD ty pe J44.9 Active 89496346 Problem Morbid obesity due to excess calories E66.01 Active 279362133 Problem Osteopenia of multiple sites M85.89 A ctive 060949375 Problem Acquired absence of both cervix and uterus Z90.710 Active 665934599 Problem Family history of colon cancer Z80.0 Active 968999222 Problem Asymptomatic postprocedural ovarian failure E89.40 Active 043328627 Problem Other chronic pain G89.29 Active 8 4130358 Problem Back pain with history of spinal surgery M54.9 Active 285974459 Problem Hyperlipidemia, unspecified hyperlipidemia type E7 8.5 Active 51575317 Problem Colon cancer screening Z12.11 Active 937005543 Problem Post menopausal syndrome N95.1 Activ e [id number] ALLERGIES No Information ENCOUNTERS Encounter Location Date Diagnosis [facility] [address] [id number] [place] [address] Jan, [facility] [address] [facility] [address] Dec, Post menopausal syndrome N95.1 and Other chronic pain G89.29 [facility] [address] [id number] [place] [address] 05 Dec, 2019 Post menopausal syndrome N95.1 and Acquired absence of both cervix and uterus Z90.710 [facility] [address] [address] Dec, Major depressive disorder, recurrent epi sode, moderate degree F33.1 [facility] [id number] [place] [address] Nov, Major depressive disorder, recurrent episode, moderate degree F33.1 ; Morbid obesity due to excess calories E66.01 ; Hyperlipidemia, unspecified hyperlipidemia type E78.5 ; Colon cancer screening Z12.11 and Hormone replacement therapy (postmenopausal) Z79.890 [facility] [address] [address] Nov, [facility] [address] [address] Nov, Lumbar radiculopathy, acute M54.16 [facility] [address] [address] Nov, Other chronic pain G89.29 [facility] [address] [address] Nov, [facility] [address] [address] Nov, Hyperlipidemia, unspecified hyperlipidemia type E78.5 [place] [address] [address] Nov, [place] [address] [address] Oct, Major depressive disorder, recurrent epi sode, moderate degree F33.1 [place] [address] [address] Oct, Lumbar radiculopathy, acute M54.16 [place] [address] [address] 17 Oct, 2019 [place] [address] [address] Oct, Back pain with history of spinal surgery M54.9 ; Major depressive disorder, recurrent episode, moderate degree F33.1 ; Osteopenia of multiple sites M85.89 ; Easy bruising R23.8 ; Morbid obesity due to excess calories E66.01 ; Sore throat J02.9 ; Cough R05 ; Therapeutic drug monitoring Z51.81 and Severe back pain M54.9 [place] [address] [address] 07 Oct, 2019 Major depressive disorder, recurrent epi sode, moderate degree F33.1 [place] [address] [address] Sep, Lumbar radiculopathy, acute M54.16 [place] [address] [address] Sep, [place] [address] [address] Sep, Laryngitis J04.0 ; Asymptomatic menopaus al state Z78.0 and Hx of fracture of left hip Z87.81 [place] [address] [address] Sep, Major depressive disorder, recurrent epi sode, moderate degree F33.1 [place] [address] [address] Sep, [place] [address] [address] Aug, [place] [address] [address] Aug, [place] [address] [address] Aug, Family history of colon cancer Z80.0 ; C hronic obstructive pulmonary disease, unspecified COPD type J44.9 ; Essential tremor G25.0 ; Mitral valve prolapse I34.1 ; Other chronic pain G89.29 ; Hx of fracture of left hip Z87.81 and Encounter for immunization Z23 [place] [address] [address] Aug, Major depressive disorder, recurrent epi sode, moderate degree F33.[address] [place] [address] Aug, Muscle spasm M62.838 ; Sever e back pain M54.9 and Hx of spinal surgery Z98.890 [address] [place] [address] Aug, [facility] [address] [facility] [id number] [place] [address] Aug, Sore throat J02.9 ; Cough R05 and Viral upper respiratory illness J06.9 [facility] [id number] [place] [address] Aug, Major depressive disorder, recurrent epi sode, moderate degree F33.1 [address] [place] [address] Jul, [address] [place] [address] Jul, [address] [place] [address] Jul, [place] [address] [place] [address] Jul, [facility] [address] [id number] [place] [address] Jul, Major depressive disorder, recurrent epi sode, moderate degree F33.1 [facility] [address] [id number] [place] [address] Jul, [address] [place] [address] Jul, [facility] [id number] [place] [address] Jul, Encounter for immunization Z23 [address] [place] [address] Jul, Restrictive airway disease J 98.4 [address] [place] [address] Jul, Screening for breast cancer Z12.39 [place] [address] [id number] [place] [address] Jul, Major depressive disorder, recurrent epi sode, moderate degree F33.1 [place] [address] [place] [address] Jun, [place] [address] [place] [address] Jun, [place] [address] [place] [address] Jun, Shortness of breath R06.02 [place] [address] [place] [address] Jun, Shortness of breath R06.02 [place] [address] [place] [address] Jun, Shortness of breath R06.02 a nd Restrictive lung disease J98.4 [place] [address] [id number] [place] [address] Jun, Major depressive disorder, recurrent epi sode, moderate degree F33.1 [place] [address] [place] [address] Jun, [place] [address] [id number] [place] [address] Jun, History of tobacco use Z87.891 ; Screeni ng for breast cancer Z12.39 and Trigger point M79.10 [place] [address] [place] [address] Jun, [place] [address] [place] [address] Jun, Major depressive disorder, r ecurrent episode, moderate degree F33.1 ; Trigger point M79.10 ; History of tobacco use Z87.891 and Screening for breast cancer Z12.39 [facility] [address] [id number] [place] [address] Jun, Major depressive disorder, recurrent epi sode, moderate degree F33.1 [facility] [address] [id number] [place] [address] May, Major depressive disorder, recurrent epi sode, moderate degree F33.1 [facility] [address] [place] [address] May, Essential tremor G25.0 ; Can dida rash of groin B37.89 and History of hypertension Z86.79 [facility] [address] [place] [address] May, [facility] [address] [place] [address] May, [facility] [address] [id number] [place] [address] May, Major depressive disorder, recurrent epi sode, moderate degree F33.1 [facility] [address] [place] [address] Apr, [facility] [place] [address] [id number] [place] [address] Apr, [facility] [address] [place] [address] Mar, [facility] [address] [place] [address] Mar, [facility] [address] [place] [address] Mar, [facility] [address] [place] [address] Mar, [facility] [address] [place] [address] Mar, [facility] [place] [address] [id number] [place] [address] Mar, Spinal stenosis of lumbar region without neurogenic claudication M48.061 [facility] [place] [address] [facility] [id number] [place] [address] Mar, Therapeutic drug monitoring Z51.81 [facility] [address] [place] [address] February, Therapeutic drug monitoring Z51.81 [facility] [address] [place] [address] [address] [place] [address] Jan, [facility] [address] [place] [address] [address] [place] [address] Jan, [facility] [address] [place] [address] [address] [place] [address] Jan, [facility] [address] [place] [address] Dec, [facility] [address] [place] [address] [address] [place] [address] Dec, [facility] [address] [place] [address] [address] [place] [address] Dec, [facility] [address] [place] [address] Nov, [facility] [address] [place] [address] Nov, [facility] [id number] [place] [id number] Sep, Dental examination Z01.20 [facility] [address] [id number] [place] [id number] Jun, Dental examination V72.2 [facility] [id number] [place] [address] 14 Jan, 2015 [facility] [address] [id number] [place] [address] Jan, [facility] [id number] [place] [address] Oct, [facility] [address] [facility] [id number] [place] [address] Oct, [facility] [address] [facility] [id number] [facility] [place] [address] Jul, [facility] [address] [id number] [place] [address] Jul, [facility] [address] [id number] [facility] [place] [address] Jun, [facility] [address] [facility] [id number] [facility] [place] [address] Jun, [facility] [address] [id number] [place] [address] May, [facility] [address] [id number] [place] [address] May, [facility] [address] [id number] [place] [address] May, 2013 [facility] [address] [id number] [place] [address] May, [facility] [address] [id number] [place] [address] May, [facility] [address] [id number] [place] [address] May, [facility] [address] [id number] [place] [address] May, [facility] [address] [id number] [place] [address] May, [facility] [address] [id number] [place] [address] Apr, [facility] [address] [id number] [place] [address] Apr, 2013 [facility] [address] [id number] [place] [address] Apr, [facility] [address] [id number] [facility] [place] [address] 16 Apr, 2013 [facility] [address] [id number] [place] [address] 16 Apr, 2013 [facility] [address] [facility] [id number] [place] [address] 16 Apr, 2013 [facility] [address] [facility] [id number] [place] [address] 15 Apr, 2013 [facility] [address] [facility] [id number] [place] [address] 15 Apr, 2013 [facility] [address] [facility] [id number] [place] [address] Apr, 2013 [facility] [address] [id number] [place] [address] Apr, 2013 [facility] [address] [id number] [place] [address] Apr, 2013 [facility] [address] [id number] [place] [address] 05 Apr, 2013 [facility] [address] [facility] [id number] [place] [address] Apr, 2013 [facility] [address] [id number] [place] [address] Apr, 2013 [facility] [address] [id number] [place] [address] Apr, 2013 [facility] [address] [facility] [id number] [place] [address] Apr, 2013 [facility] [address] [facility] [id number] [place] [address] Apr, 2013 [facility] [address] [id number] [place] [address] Mar, [facility] [address] [facility] [id number] [place] [address] Mar, [facility] [address] [id number] [place] [address] Mar, [facility] [address] [facility] [id number] [place] [address] Mar, [facility] [address] [id number] [place] [address] Mar, [facility] [address] [id number] [place] [address] Mar, [facility] [address] [id number] [place] [address] Mar, [facility] [address] [facility] [id number] [place] [address] Mar, [facility] [address] [id number] [place] [address] Mar, [facility] [address] [id number] [place] [address] Mar, [facility] [address] [id number] [place] [address] Mar, [facility] [address] [id number] [place] [address] Mar, [facility] [address] [id number] [place] [address] February, [facility] [address] [id number] [place] [address] February, [facility] [address] [id number] [place] [address] February, [facility] [address] [id number] [place] [address] February, [facility] [address] [id number] [place] [address] February, [facility] [address] [id number] [place] [address] February, [facility] [address] [id number] [place] [address] February, [facility] [address] [id number] [place] [address] February, [facility] [address] [id number] [facility] [place] [address] February, [facility] [address] [id number] [place] [address] February, [facility] [address] [id number] [facility] [place] [address] February, [facility] [address] [id number] [facility] [place] [address] February, [facility] [address] [id number] [facility] [place] [address] Jan, [facility] [address] [id number] [place] [address] Jan, [facility] [address] [id number] [place] [address] Jan, [facility] [address] [id number] [place] [address] Jan, [facility] [address] [id number] [place] [address] Jan, [facility] [address] [id number] [place] [address] Jan, [facility] [address] [id number] [place] [address] Dec, [facility] [address] [id number] [place] [address] Dec, [facility] [address] [id number] [place] [address] Dec, [facility] [address] [id number] [place] [address] Dec, [facility] [address] [id number] [place] [address] Dec, [facility] [address] [id number] [place] [address] Dec, [facility] [address] [id number] [place] [address] Nov, [facility] [address] [id number] [place] [address] Nov, [facility] [address] [id number] [place] [address] Nov, [facility] [address] [id number] [place] [address] Nov, [facility] [address] [id number] [place] [address] Oct, [facility] [address] [id number] [place] [address] Oct, [facility] [address] [id number] [place] [address] Oct, [facility] [address] [id number] [place] [address] Oct, [facility] [address] [id number] [place] [address] Oct, [facility] [address] [id number] [place] [address] Oct, [facility] [address] [id number] [place] [address] Oct, [facility] [address] [id number] [place] [address] Oct, [facility] [address] [id number] [place] [address] Oct, [facility] [address] [id number] [place] [address] Sep, [facility] [address] [id number] [place] [address] Sep, [facility] [address] [id number] [place] [address] Sep, [facility] [address] [id number] [place] [address] 26 Sep, 2013 [facility] [address] [facility] [id number] [place] [address] 16 Sep, 2013 [facility] [address] [id number] [place] [address] Sep, [facility] [address] [id number] [place] [address] Sep, [facility] [address] [id number] [place] [address] Aug, [facility] [address] [facility] [id number] [place] [address] Aug, [facility] [address] [id number] [place] [address] Jul, [facility] [address] [id number] [place] [address] Jul, [facility] [address] [id number] [place] [address] 14 Jul, 2013 [facility] [address] [id number] [place] [address] 14 Jul, 2013 [facility] [address] [id number] [place] [address] Jul, [facility] [address] [id number] [place] [address] Jul, [facility] [address] [id number] [place] [address] 25 Jun, 2013 [facility] [address] [id number] [place] [address] 16 Jun, 2013 [facility] [address] [id number] [place] [address] 13 Jun, 2013 [facility] [address] [id number] [place] [address] 30 May, 2013 [facility] [address] [id number] [place] [address] May, [facility] [address] [id number] [place] [address] Apr, [facility] [address] [id number] [place] [address] Apr, [facility] [address] [id number] [place] [address] Apr, [facility] [address] [id number] [place] [address] Mar, [facility] [address] [id number] [place] [address] Mar, [facility] [address] [id number] [place] [address] February, [facility] [address] [id number] [place] [address] February, [facility] [address] [id number] [place] [address] Jan, [facility] [address] [id number] [place] [address] Jan, [facility] [address] [id number] [place] [address] Dec, [facility] [address] [id number] [place] [address] Nov, [facility] [address] [id number] [place] [address] Nov, [facility] [address] [id number] [place] [address] Nov, [facility] [address] [id number] [place] [address] Oct, [facility] [address] [id number] [place] [address] Aug, [facility] [address] [id number] [place] [address] Aug, [facility] [address] [id number] [place] [address] Aug, [facility] [address] [id number] [place] [address] 08 Aug, 2012 [facility] [address] [id number] [place] [address] 26 Jun, 2012 [facility] [address] [id number] [place] [address] 10 Jun, 2012 [facility] [address] [id number] [place] [address] 08 Jun, 2012 [facility] [address] [id number] [place] [address] 07 Jun, 2012 [facility] [address] [id number] [place] [address] 05 Jun, 2012 [facility] [address] [id number] [place] [address] May, [facility] [address] [id number] [place] [address] 14 May, 2012 [facility] [address] [id number] [place] [address] May, [facility] [address] [id number] [place] [address] May, [facility] [address] [id number] [place] [address] Mar, [facility] [address] [id number] [place] [address] Mar, [facility] [address] [id number] [place] [address] February, [facility] [address] [id number] [place] [address] February, [facility] [address] [id number] [place] [address] Jan, [facility] [address] [id number] [place] [address] 17 Jan, 2012 [facility] [address] [id number] [place] [address] 13 Jan, 2012 [facility] [address] [id number] [place] [address] 12 Jan, 2012 [facility] [address] [id number] [place] [address] 11 Jan, 2012 [facility] [address] [id number] [place] [address] 20 Nov, 2011 [facility] [address] [id number] [place] [address] 15 Nov, 2011 [facility] [address] [id number] [place] [address] 10 Nov, 2011 [facility] [address] [id number] [place] [address] Oct, [facility] [address] [id number] [place] [address] 14 Sep, 2011 [facility] [address] [id number] [place] [address] 14 Sep, 2011 [facility] [address] [id number] [place] [address] 09 Sep, 2011 [facility] [address] [id number] [place] [address] 22 Aug, 2011 [facility] [address] [id number] [place] [address] Aug, [facility] [address] [id number] [place] [address] Jul, [facility] [address] [id number] [place] [address] 11 Jul, 2011 [facility] [address] [id number] [place] [address] 18 Jun, 2010 [facility] [address] [id number] [place] [address] 17 Nov, 2009 [facility] [address] [id number] [place] [address] Aug, [facility] [address] [facility] [id number] [place] [address] Mar, [facility] [address] [facility] [id number] [place] [address] Nov, IMMUNIZATIONS No Known Immunizations SOCIAL HISTORY Never Assessed REASON FOR VISIT PLAN OF CARE VITAL SIGNS Height 65 in 2013-07-14 Weight 240.4 lbs 2013-07-14 Temperature 97.5 degrees Fahrenheit 2013-07-14 Heart Rate 60 bpm 2013-07-14 Respiratory Rate 18 2013-07-14 Blood pressure systolic 158 mmHg 2013-07-14 Blood pressure diastolic 80 mmHg 2013-07-14 MEDICATIONS Unknown Medications RESULTS No Results PROCEDURES [...]
--- OUTSIDE RECORDS SUMMARY | 2020-03-15 07:04 | XMS REPORT ---
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 Name Role Phone Migration, Doctor Unavailable Unavailable PROBLEMS Type Condition ICD9-CM Code UJO88-EV Code Onset Dates Condition S tatus SNOMED Code Problem Essential tremor G25.0 Active 609 103244 Problem Major depressive disorder, recurrent episode, moderate deg ree F33.1 Active 16583901 Problem Mitral valve prolapse I34.1 Active 916841644 Problem Hx of fracture of left hip Z87.81 Act west 142918776 Problem Chronic obstructive pulmonary disease, unspecified COPD ty pe J44.9 Active 93738743 Problem Morbid obesity due to excess calories E66.01 Active 068384017 Problem Osteopenia of multiple sites M85.89 A ctive 461189986 Problem Acquired absence of both cervix and uterus Z90.710 Active 056209125 Problem Family history of colon cancer Z80.0 Active 683400329 Problem Asymptomatic postprocedural ovarian failure E89.40 Active 865323634 Problem Other chronic pain G89.29 Active 8 2848511 Problem Back pain with history of spinal surgery M54.9 Active 887827920 Problem Hyperlipidemia, unspecified hyperlipidemia type E7 8.5 Active 78877151 Problem Colon cancer screening Z12.11 Active 701179230 Problem Post menopausal syndrome N95.1 Activ e [id number] ALLERGIES No Information ENCOUNTERS Encounter Location Date Diagnosis [facility] [address] [facility] [id number] [place] [address] 09 Jan, 2020 [facility] [address] [facility] [id number] [address] 27 Dec, 2019 Post menopausal syndrome N95.1 [facility] [address] [id number] [address] 23 Dec, 2019 Post menopausal syndrome N95.1 and Other chronic pain G89.29 [facility] [address] [id number] [address] Dec, Post menopausal syndrome N95.1 and Acquired absence of both cervix and uterus Z90.710 [facility] [address] [facility] [id number] [address] [place] [address] Dec, Major depressive disorder, r ecurrent episode, moderate degree F33.1 [facility] [place] [id number] [place] [address] Nov, Major depressive disorder, recurrent episode, moderate degree F33.1 ; Morbid obesity due to excess calories E66.01 ; Hyperlipidemia, unspecified hyperlipidemia type E78.5 ; Colon cancer screening Z12.11 and Hormone replacement therapy (postmenopausal) Z79.890 [facility] [id number] [place] [address] Nov, [facility] [id number] [place] [address] Nov, Lumbar radiculopathy, acute M54.16 [facility] [id number] [place] [address] Nov, Other chronic pain G89.29 [facility] [id number] [place] [address] Nov, [facility] [id number] [place] [address] Nov, Hyperlipidemia, unspecified hyperlipidemia type E78.5 [facility] [address] [facility] [id number] [address] [place] [address] Nov, [facility] [address] [facility] [id number] [address] [place] [address] Oct, Major depressive disorder, r ecurrent episode, moderate degree F33.1 [facility] [address] [facility] [id number] [address] [place] [address] Oct, Lumbar radiculopathy, acute M54.16 [facility] [address] [facility] [id number] [address] [place] [address] Oct, [place] [address] [facility] [id number] [address] [place] [address] 15 Oct, 2019 Back pain with history of sp inal surgery M54.9 ; Major depressive disorder, recurrent episode, moderate degree F33.1 ; Osteopenia of multiple sites M85.89 ; Easy bruising R23.8 ; Morbid obesity due to excess calories E66.01 ; Sore throat J02.9 ; Cough R05 ; Therapeutic drug monitoring Z51.81 and Severe back pain M54.9 [place] [address] [facility] [id number] [address] [place] [address] 07 Oct, 2019 Major depressive disorder, r ecurrent episode, moderate degree F33.1 [place] [address] [facility] [id number] [address] [place] [address] 23 Sep, 2019 Lumbar radiculopathy, acute M54.16 [place] [address] [place] [id number] [address] [place] [address] Sep, [place] [address] [place] [id number] [address] [place] [address] Sep, Laryngitis J04.0 ; Asymptoma tic menopausal state Z78.0 and Hx of fracture of left hip Z87.81 [place] [address] [facility] [id number] [address] [place] [address] Sep, Major depressive disorder, r ecurrent episode, moderate degree F33.1 [place] [address] [facility] [id number] [address] [place] [address] Sep, [place] [address] [facility] [id number] [address] [place] [address] Aug, [place] [address] [facility] [id number] [address] [place] [address] Aug, [place] [address] [facility] [id number] [address] [place] [address] Aug, Family history of colon canc er Z80.0 ; Chronic obstructive pulmonary disease, unspecified COPD type J44.9 ; Essential tremor G25.0 ; Mitral valve prolapse I34.1 ; Other chronic pain G89.29 ; Hx of fracture of left hip Z87.81 and Encounter for immunization Z23 [facility] [address] [facility] [id number] [address] [place] [address] Aug, Major depressive disorder, r ecurrent episode, moderate degree F33.[address] 340[place] [id number] [address] Aug, Muscle spasm M62.838 ; Sever e back pain M54.9 and Hx of spinal surgery Z98.[address] 340[address] [id number] [address] Aug, [facility] [address] [facility] [id number] [place] [address] Aug, Sore throat J02.9 ; Cough R05 and Viral upper respiratory illness J06.9 [facility] [address] [facility] [id number] [address] [place] [address] Aug, Major depressive disorder, r ecurrent episode, moderate degree F33.[address] 340[address] [id number] [place] [address] Jul, [address] 340[address] [id number] [place] [address] Jul, [address] 340[address] [id number] [place] [address] Jul, [address] 340[address] [id number] [place] [address] Jul, [facility] [address] [facility] [id number] [address] [place] [address] Jul, Major depressive disorder, r ecurrent episode, moderate degree F33.1 [facility] [address] [facility] [id number] [address] [place] [address] Jul, [address] 340[address] [id number] [place] [address] Jul, [facility] [address] [facility] [id number] [address] [place] [address] Jul, Encounter for immunization Z [address] 340[address] [id number] [place] [address] Jul, Restrictive airway disease J 98.[address] 340[address] [id number] [place] [address] Jul, Screening for breast cancer Z12.39 [facility] [address] [facility] [id number] [address] [place] [address] Jul, Major depressive disorder, r ecurrent episode, moderate degree F33.[address] 340[address] [id number] [place] [address] Jun, [address] 340[address] [id number] [place] [address] Jun, [address] 340[address] [id number] [place] [address] Jun, Shortness of breath R06.[address] 340 [id number] [place] [address] Jun, Shortness of breath R06.[address] 340B [id number] [place] [address] Jun, Shortness of breath R06.02 a nd Restrictive lung disease J98.4 [facility] [address] [facility] [id number] [address] [place] [address] Jun, Major depressive disorder, r ecurrent episode, moderate degree F33.[address] 340B [id number] [place] [address] Jun, [facility] [address] [facility] [id number] [address] [place] [address] Jun, History of tobacco use Z87.8 91 ; Screening for breast cancer Z12.39 and Trigger point M79.10 [facility] [address] 340B [id number] [place] [address] Jun, [facility] [place] [address] 340[address] [id number] [place] [address] Jun, Major depressive disorder, r ecurrent episode, moderate degree F33.1 ; Trigger point M79.10 ; History of tobacco use Z87.891 and Screening for breast cancer Z12.39 [place] [address] [facility] [id number] [address] [place] [address] Jun, Major depressive disorder, r ecurrent episode, moderate degree F33.1 [place] [address] [facility] [id number] [address] [place] [address] May, Major depressive disorder, r ecurrent episode, moderate degree F33.1 [facility] [place] [address] 340B [id number] [place] [address] May, Essential tremor G25.0 ; Can dida rash of groin B37.89 and History of hypertension Z86.79 [facility] [place] [address] 340B [id number] [place] [address] May, [address] 340B [id number] [place] [address] May, [facility] [address] [facility] [id number] [address] [place] [address] May, Major depressive disorder, r ecurrent episode, moderate degree F33.1 [facility] [address] 340B [id number] [place] [address] Apr, [facility] [place] [address] [facility] [id number] [place] [address] Apr, [facility] [address] [id number] [address] Mar, [facility] [address] 340B [id number] [place] [address] Mar, [facility] [address] 340B [id number] [place] [address] Mar, [facility] [place] [address] [id number] [place] [address] Mar, [facility] [place] [address] 340B [id number] [place] [address] Mar, [facility] [place] [address] [facility] [id number] [place] [address] Mar, Spinal stenosis of lumbar region without neurogenic claudication M48.061 [facility] [place] [address] [id number] [place] [address] Mar, Therapeutic drug monitoring Z51.81 [facility] [place] [address] 340B [id number] [place] [address] February, Therapeutic drug monitoring Z51.81 [facility] [place] [address] [id number] [place] [address] Jan, [facility] [place] [address] [id number] [place] [address] Jan, [facility] [place] [address] [id number] [place] [address] Jan, [facility] [place] [address] [id number] [place] [address] Dec, [facility] [place] [address] [id number] [place] [address] Dec, [facility] [place] [address] [id number] [place] [address] Dec, [facility] [place] [address] [id number] [place] [address] Nov, [facility] [place] [address] [id number] [place] [address] Nov, [facility] [address] [id number] [place] [id number] Sep, Dental examination Z01.20 [facility] [address] [id number] [address] [place] [address] [id number] 10 Jun, 2015 Dental examination V72.[address] [facility] [address] [id number] [address] [place] [address], [place] [address] 14 Jan, [address] [facility] [address] [id number] [address] [place] [address] Jan, [facility] [address] [id number] [address] [place] [address] Oct, [facility] [address] [id number] [address] [place] [address], [place] [address] Oct, [facility] [address] [id number] [address] [place] [address] Jul, [facility] [address] [id number] [address] [place] [address] Jul, [facility] [address] [id number] [address] [place] [address] Jun, [facility] [address] [id number] [address] [place] [address] Jun, [facility] [address] [id number] [address] [place] [address] May, [facility] [address] [id number] [address] [place] [address] May, [facility] [address] [id number] [address] [place] [address] May, [facility] [address] [id number] [address] [place] [address] May, [facility] [address] [id number] [address] [place] [address] May, [facility] [address] [id number] [address] [place] [address] May, [facility] [address] [id number] [facility] [place] [address] May, [facility] [address] [id number] [address] [place] [address], [place] [address] May, [facility] [address] [id number] [facility] [place] [address] Apr, [facility] [address] [id number] [address] [place] [address], [place] [address] Apr, 2013 [facility] [address] [id number] [address] [place] [address], [place] [address] Apr, 2013 [facility] [address] [id number] [address] [place] [address], [place] [address] Apr, [facility] [address] [id number] [address] [place] [address], [place] [address] Apr, 2013 [facility] [address] [id number] [address] [place] [address], [place] [address] Apr, [facility] [address] [id number] [address] [place] [address], [place] [address] Apr, [facility] [address] [id number] [address] [place] [address], [place] [address] Apr, [facility] [address] [id number] [address] [place] [address], [place] [address] Apr, [facility] [address] [id number] [address] [place] [address], [place] [address] Apr, [facility] [address] [id number] [address] [place] [address], [place] [address] Apr, [facility] [address] [id number] [address] [place] [address], [place] [address] Apr, [facility] [address] [id number] [address] [place] [address], [place] [address] Apr, [facility] [address] [id number] [address] [place] [address], [place] [address] Apr, [facility] [address] [id number] [address] [place] [address], [place] [address] Apr, [facility] [address] [id number] [address] [place] [address], [place] [address] Apr, [facility] [address] [id number] [address] [place] [address], [place] [address] Apr, [facility] [address] [id number] [address] [place] [address], [place] [address] Mar, [facility] [address] [id number] [address] [place] [address], [place] [address] Mar, [facility] [address] [id number] [address] [place] [address], [place] [address] Mar, [facility] [address] [id number] [address] [place] [address], [place] [address] Mar, [facility] [address] [id number] [address] [place] [address], [place] [address] Mar, [facility] [address] [id number] [address] [place] [address], [place] [address] Mar, [facility] [address] [id number] [address] [place] [address], [place] [address] Mar, [facility] [address] [id number] [address] [place] [address], [place] [address] Mar, [facility] [address] [id number] [address] [place] [address], [place] [address] Mar, [facility] [address] [id number] [address] [place] [address], [place] [address] Mar, [facility] [address] [id number] [address] [place] [address], [place] [address] Mar, [facility] [address] [id number] [address] [place] [address], [place] [address] Mar, [facility] [address] [id number] [address] [place] [address], [place] [address] February, [facility] [address] [id number] [address] [place] [address], [place] [address] February, [facility] [address] [id number] [address] [place] [address], [place] [address] February, [facility] [address] [id number] [address] [place] [address], [place] [address] February, [facility] [address] [id number] [address] [place] [address], [place] [address] February, [facility] [address] [id number] [address] [place] [address], [place] [address] February, [facility] [address] [id number] [address] [place] [address], [place] [address] February, [facility] [address] [id number] [address] [place] [address], [place] [address] February, [facility] [address] [id number] [address] [place] [address], [place] [address] February, [facility] [address] [id number] [address] [place] [address], [place] [address] February, [facility] [address] [id number] [address] [place] [address], [place] [address] February, [facility] [address] [id number] [address] [place] [address], [place] [address] February, [facility] [address] [id number] [address] [place] [address], [place] [address] Jan, [facility] [address] [id number] [address] [place] [address], [place] [address] Jan, [facility] [address] [id number] [address] [place] [address], [place] [address] Jan, [facility] [address] [id number] [address] [place] [address], [place] [address] Jan, [facility] [address] [id number] [facility] [place] [address] 07 Jan, 2014 [facility] [address] [id number] [address] [place] [address], [place] [address] Jan, [facility] [address] [id number] [address] [place] [address], [place] [address] Dec, [facility] [address] [id number] [address] [place] [address], [place] [address] Dec, [facility] [address] [id number] [address] [place] [address], [place] [address] Dec, [facility] [address] [id number] [address] [place] [address], [place] [address] Dec, [facility] [address] [id number] [address] [place] [address], [place] [address] Dec, [facility] [address] [id number] [address] [place] [address], [place] [address] Dec, [facility] [address] [id number] [address] [place] [address], [place] [address] Nov, [facility] [address] [id number] [address] [place] [address], [place] [id number] Nov, [facility] [address] [id number] [address] [place] [address], [place] [address] Nov, [facility] [address] [id number] [address] [place] [address], [place] [address] Nov, [facility] [address] [id number] [address] [place] [address], [place] [address] Oct, [facility] [address] [id number] [address] [place] [address], [place] [address] Oct, [facility] [address] [id number] [address] [place] [address], [place] [id number] 15 Oct, 2013 [facility] [address] [id number] [address] [place] [address], [place] [address] Oct, [facility] [address] [id number] [address] [place] [address], [place] [address] Oct, [facility] [address] [id number] [address] [place] [address], [place] [address] Oct, [facility] [address] [id number] [address] [place] [address], [place] [id number] Oct, [facility] [address] [id number] [address] [place] [address], [place] [address] Oct, [facility] [address] [id number] [address] [place] [address], [place] [id number] Oct, [facility] [address] [id number] [address] [place] [address], [place] [address] Sep, [facility] [address] [id number] [address] [place] [address], [place] [address] Sep, [facility] [address] [id number] [address] [place] [address], [place] [address] Sep, [facility] [address] [id number] [address] [place] [address], [place] [address] Sep, [facility] [address] [id number] [address] [place] [address], [place] [address] 16 Sep, 2013 [facility] [address] [id number] [address] [place] [address], [place] [id number] Sep, [facility] [address] [id number] [address] [place] [address], [place] [address] Sep, [facility] [address] [id number] [address] [place] [address], [place] [id number] Aug, [facility] [address] [id number] [address] [place] [address], [place] [address] Aug, [facility] [address] [id number] [address] [place] [address], [place] [address] Jul, [facility] [address] [id number] [address] [place] [address], [place] [id number] 28 Jul, 2013 [facility] [address] [id number] [address] [place] [address], [place] [id number] 14 Jul, 2013 [facility] [address] [id number] [address] [place] [address], [place] [id number] 14 Jul, 2013 [facility] [address] [id number] [address] [place] [address], [place] [id number] Jul, [facility] [address] [id number] [address] [place] [address], [place] [id number] Jul, [facility] [address] [id number] [address] [place] [address], [place] [id number] 25 Jun, 2013 [facility] [address] [id number] [address] [place] [address], [place] [id number] 16 Jun, 2013 [facility] [address] [id number] [address] [place] [address], [place] [address] Jun, [facility] [address] [id number] [address] [place] [address], [place] [id number] 30 May, [address] [facility] [address] [id number] [address] [place] [address], [place] [address] May, [facility] [address] [id number] [address] [place] [address], [place] [id number] Apr, [facility] [address] [id number] [address] [place] [address], [place] [id number] Apr, [facility] [address] [id number] [address] [place] [address], [place] [id number] Apr, [facility] [address] [id number] [address] [place] [address], [place] [id number] Mar, [facility] [address] [id number] [address] [place] [address], [place] [address] Mar, [facility] [address] [id number] [address] [place] [address], [place] [address] February, [facility] [address] [id number] [address] [place] [address], [place] [address] February, [facility] [address] [id number] [address] [place] [address], [place] [id number] Jan, [facility] [address] [id number] [address] [place] [address], [place] [address] Jan, [facility] [address] [id number] [address] [place] [address], [place] [id number] Dec, [facility] [address] [id number] [address] [place] [address], [place] [address] Nov, [facility] [address] [id number] [address] [place] [address], [place] [id number] Nov, [facility] [address] [id number] [address] [place] [address], [place] [address] Nov, [facility] [address] [id number] [address] [place] [address], [place] [id number] Oct, [facility] [address] [id number] [address] [place] [address], [place] [address] Aug, [facility] [address] [id number] [address] [place] [address], [place] [id number] Aug, [facility] [address] [id number] [address] [place] [address], [place] [address] Aug, [facility] [address] [id number] [address] [place] [address], [place] [id number] Aug, [facility] [address] [id number] [address] [place] [address], [place] [address] Jun, [facility] [address] [id number] [address] [place] [address], [place] [id number] Jun, [facility] [address] [id number] [address] [place] [address], [place] [address] Jun, [facility] [address] [id number] [address] [place] [address], [place] [id number] 07 Jun, 2012 [facility] [address] [id number] [address] [place] [address], [place] [id number] 05 Jun, 2012 [facility] [address] [id number] [address] [place] [address], [place] [address] 31 May, 2012 [facility] [address] [id number] [address] [place] [address], [place] [id number] 14 May, 2012 [facility] [address] [id number] [address] [place] [address], [place] [id number] May, [facility] [address] [id number] [address] [place] [address], [place] [address] May, [facility] [address] [id number] [address] [place] [address], [place] [address] Mar, [facility] [address] [id number] [address] [place] [address], [place] [address] Mar, [facility] [address] [id number] [address] [place] [address], [place] [id number] February, [facility] [address] [id number] [address] [place] [address], [place] [address] February, [facility] [address] [id number] [address] [place] [address], [place] [id number] Jan, [facility] [address] [id number] [address] [place] [address], [place] [id number] 17 Jan, [address] [facility] [address] [id number] [address] [place] [address], [place] [id number] 13 Jan, 2012 [facility] [address] [id number] [address] [place] [address], [place] [id number] 12 Jan, [address] [facility] [address] [id number] [address] [place] [address], [place] [address] Jan, [facility] [address] [id number] [address] [place] [address], [place] [address] Nov, [facility] [address] [id number] [address] [place] [id number] 15 Nov, 2011 [facility] [address] [id number] [address] [place] [id number] 10 Nov, 2011 [facility] [address] [id number] [address] [place] [id number] Oct, [facility] [address] [id number] [address] [place] [id number] Sep, [facility] [address] [id number] [address] [place] [id number] Sep, [facility] [address] [id number] [address] [place] [id number] Sep, [facility] [address] [id number] [address] [place] [id number] Aug, [facility] [address] [id number] [address] [place] [phone] Aug, [facility] [address] [id number] [address] [place] [id number] Jul, [facility] [address] [id number] [address] [place] [phone] Jul, [facility] [address] [id number] [address] [place] [id number] Jun, [facility] [address] [id number] [address] [place] [phone] Nov, [facility] [address] [id number] [address] [place] [phone] Aug, [facility] [address] [id number] [address] [place] [id number] Mar, [facility] [address] [id number] [address] [place] [id number] 19 Nov, 2008 IMMUNIZATIONS No Known Immunizations [...]
--- OUTSIDE RECORDS SUMMARY | 2020-03-15 07:04 | XMS REPORT ---
Author Author Marleny DIAZ Organization 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 Name Role Phone LIVE DIAZ Unavailable PROBLEMS Type Condition ICD9-CM Code [id number] Code Onset Dates Condition S tatus SNOMED Code Problem Essential tremor G25.0 Active 609 561207 Problem Major depressive disorder, recurrent episode, moderate deg ree F33.1 Active 53375982 Problem Mitral valve prolapse I34.1 Active 304950081 Problem Hx of fracture of left hip Z87.81 Act west 481821394 Problem Chronic obstructive pulmonary disease, unspecified COPD ty pe J44.9 Active 49319011 Problem Morbid obesity due to excess calories E66.01 Active 398457086 Problem Osteopenia of multiple sites M85.89 A ctive 681264823 Problem Acquired absence of both cervix and uterus Z90.710 Active 931304178 Problem Family history of colon cancer Z80.0 Active 038380462 Problem Asymptomatic postprocedural ovarian failure E89.40 Active 659721166 Problem Other chronic pain G89.29 Active 8 4708749 Problem Back pain with history of spinal surgery M54.9 Active 915888569 Problem Hyperlipidemia, unspecified hyperlipidemia type E7 8.5 Active 24618571 Problem Colon cancer screening Z12.11 Active 754213861 Problem Post menopausal syndrome N95.1 Activ e [id number] ALLERGIES No Information ENCOUNTERS Encounter Location Date Diagnosis [facility] [address] [id number] [place] [address] Jan, [facility] [address] [id number] [place] [address] 18 Dec, 2019 [facility] [address] [id number] [place] [address] 05 Dec, 2019 Post menopausal syndrome N95.1 and Acquired absence of both cervix and uterus Z90.710 [facility] [address] [address] Dec, Major depressive disorder, recurrent epi sode, moderate degree F33.1 [facility] [address] [address] Nov, Major depressive disorder, recurrent episode, moderate degree F33.1 ; Morbid obesity due to excess calories E66.01 ; Hyperlipidemia, unspecified hyperlipidemia type E78.5 ; Colon cancer screening Z12.11 and Hormone replacement therapy (postmenopausal) Z79.890 [facility] [address] [address] Nov, [facility] [address] [address] Nov, Lumbar radiculopathy, acute M54.16 [facility] [address] [address] Nov, Other chronic pain G89.29 [facility] [address] [address] Nov, [facility] [address] [address] Nov, Hyperlipidemia, unspecified hyperlipidemia type E78.5 [place] [address] [address] Nov, [place] [address] [address] Oct, Major depressive disorder, recurrent epi sode, moderate degree F33.1 [place] [address] [address] Oct, Lumbar radiculopathy, acute M54.16 [place] [address] [address] 17 Oct, 2019 [place] [address] [address] Oct, Back pain with history of spinal surgery M54.9 ; Major depressive disorder, recurrent episode, moderate degree F33.1 ; Osteopenia of multiple sites M85.89 ; Easy bruising R23.8 ; Morbid obesity due to excess calories E66.01 ; Sore throat J02.9 ; Cough R05 ; Therapeutic drug monitoring Z51.81 and Severe back pain M54.9 [place] [address] [address] 07 Oct, 2019 Major depressive disorder, recurrent epi sode, moderate degree F33.1 [place] [address] [address] Sep, Lumbar radiculopathy, acute M54.16 [place] [address] [address] Sep, [place] [address] [address] Sep, Laryngitis J04.0 ; Asymptomatic menopaus al state Z78.0 and Hx of fracture of left hip Z87.81 [place] [address] [address] Sep, Major depressive disorder, recurrent epi sode, moderate degree F33.1 [place] [address] [address] Sep, [place] [address] [address] Aug, [place] [address] [address] Aug, [address] [address] Aug, Family history of colon cancer Z80.0 ; C hronic obstructive pulmonary disease, unspecified COPD type J44.9 ; Essential tremor G25.0 ; Mitral valve prolapse I34.1 ; Other chronic pain G89.29 ; Hx of fracture of left hip Z87.81 and Encounter for immunization Z23 [place] [address] [address] Aug, Major depressive disorder, recurrent epi sode, moderate degree F33.[address] [place] [address] Aug, Muscle spasm M62.838 ; Sever e back pain M54.9 and Hx of spinal surgery Z98.[address] [place] [address] Aug, [facility] [address] [facility] [id number] [place] [address] Aug, Sore throat J02.9 ; Cough R05 and Viral upper respiratory illness J06.9 [facility] [id number] [place] [address] Aug, Major depressive disorder, recurrent epi sode, moderate degree F33.1 [address] [place] [address] Jul, [address] [place] [address] Jul, [address] [place] [address] Jul, [address] [place] [address] Jul, [facility] [address] [id number] [place] [address] Jul, Major depressive disorder, recurrent epi sode, moderate degree F33.1 [facility] [address] [id number] [place] [address] Jul, [address] [place] [address] Jul, [facility] [address] [place] [id number] [place] [address] Jul, Encounter for immunization Z23 [address] [place] [address] Jul, Restrictive airway disease J 98.[address] [place] [address] Jul, Screening for breast cancer Z12.39 [facility] [address] [id number] [place] [address] Jul, Major depressive disorder, recurrent epi sode, moderate degree F33.1 [address] [place] [address] Jun, [address] [place] [address] Jun, [address] [place] [address] Jun, Shortness of breath R06.02 [address] [place] [address] Jun, Shortness of breath R06.02 [place] [address] [place] [address] Jun, Shortness of breath R06.02 a nd Restrictive lung disease J98.4 [facility] [id number] [place] [address] Jun, Major depressive disorder, recurrent epi sode, moderate degree F33.1 [address] [place] [address] Jun, [place] [address] [place] [id number] [place] [address] Jun, History of tobacco use Z87.891 ; Screeni ng for breast cancer Z12.39 and Trigger point M79.10 [place] [address] [place] [address] Jun, [address] [place] [address] Jun, Major depressive disorder, r ecurrent episode, moderate degree F33.1 ; Trigger point M79.10 ; History of tobacco use Z87.891 and Screening for breast cancer Z12.39 [facility] [address] [id number] [place] [address] Jun, Major depressive disorder, recurrent epi sode, moderate degree F33.1 [facility] [address] [id number] [place] [address] May, Major depressive disorder, recurrent epi sode, moderate degree F33.1 [facility] [place] [address] [place] [address] May, Essential tremor G25.0 ; Can dida rash of groin B37.89 and History of hypertension Z86.79 [facility] [place] [address] [place] [address] May, [facility] [place] [address] [place] [address] May, [facility] [address] [id number] [place] [address] May, Major depressive disorder, recurrent epi sode, moderate degree F33.1 [facility] [place] [address] [place] [address] Apr, [facility] [place] [address] [id number] [place] [address] Apr, [facility] [address] [place] [address] Mar, [facility] [place] [address] [place] [address] Mar, [facility] [place] [address] [place] [address] Mar, [facility] [address] [place] [address] Mar, [facility] [place] [address] [place] [address] Mar, [facility] [place] [address] [id number] [place] [address] Mar, Spinal stenosis of lumbar region without neurogenic claudication M48.061 [facility] [place] [address] [facility] [id number] [place] [address] Mar, Therapeutic drug monitoring Z51.81 [facility] [place] [address] [place] [address] February, Therapeutic drug monitoring Z51.81 [facility] [place] [address] [place] [address] Jan, [facility] [place] [facility] [address] [place], [place] [address] [place] [address] Jan, [facility] [place] [address] [place] [address] Jan, [facility] [place] [place] [address] [place] [address] Dec, [facility] [place] [address] [place] [address] Dec, [facility] [place] [address] [place] [address] Dec, [facility] [place] [address] [place] [address] Nov, [facility] [place] [address] [place] [address] Nov, [facility] [facility] [address] [id number] [place] [id number] Sep, Dental examination Z01.20 [facility] [facility] [address] [id number] [place] [id number] 10 Jun, 2015 Dental examination V72.2 [facility] [id number] [place] [address] 14 Jan, 2015 [facility] [id number] [place] [address] Jan, [facility] [address] [id number] [place] [address] Oct, [facility] [place] [facility] [address] [facility] [id number] [place] [address] Oct, [facility] [place] [facility] [address] [id number] [place] [address] Jul, [facility] [place] [facility] [address] [id number] [place] [address] Jul, [facility] [place] [facility] [address] [id number] [place] [address] Jun, [facility] [place] [facility] [address] [id number] [place] [address] Jun, 2013 [facility] [place] [facility] [address] [id number] [place] [address] May, [facility] [place] [facility] [address] [id number] [place] [address] May, [facility] [place] [facility] [address] [id number] [place] [address] May, [facility] [place] [facility] [address] [id number] [place] [address] May, [facility] [place] [facility] [address] [id number] [place] [address] May, [facility] [place] [facility] [address] [id number] [place] [address] May, [facility] [place] [facility] [address] [id number] [place] [address] May, [facility] [place] [facility] [address] [id number] [place] [address] May, [facility] [place] [facility] [address] [id number] [place] [address] Apr, [facility] [place] [facility] [address] [id number] [place] [address] Apr, [facility] [place] [facility] [address] [id number] [place] [address] Apr, [facility] [place] [facility] [address] [id number] [place] [address] 16 Apr, 2013 [facility] [place] [facility] [address] [facility] [id number] [facility] [address] 16 Apr, 2013 [facility] [place] [facility] [address] [facility] [id number] [facility] [address] 16 Apr, 2013 [facility] [place] [facility] [address] [facility] [id number] [place] [address] 15 Apr, 2013 [facility] [place] [facility] [address] [facility] [id number] [facility] [address] 15 Apr, 2013 [facility] [place] [facility] [address] [facility] [id number] [facility] [address] Apr, 2013 [facility] [place] [facility] [address] [facility] [id number] [place] [address] Apr, 2013 [facility] [place] [facility] [address] [id number] [place] [address] Apr, 2013 [facility] [place] [facility] [address] [id number] [place] [address] Apr, 2013 [facility] [place] [facility] [address] [facility] [id number] [place] [address] Apr, 2013 [facility] [place] [facility] [address] [id number] [place] [address] Apr, 2013 [facility] [place] [facility] [address] [facility] [id number] [place] [address] Apr, 2013 [facility] [place] [facility] [address] [id number] [place] [address] Apr, 2013 [facility] [place] [facility] [address] [facility] [id number] [place] [address] Apr, 2013 [facility] [place] [facility] [address] [facility] [id number] [place] [address] Mar, 2013 [facility] [place] [facility] [address] [facility] [id number] [place] [address] Mar, 2013 [facility] [place] [facility] [address] [id number] [place] [address] Mar, 2013 [facility] [place] [facility] [address] [facility] [id number] [place] [address] Mar, [facility] [place] [facility] [address] [id number] [place] [address] Mar, [facility] [place] [facility] [address] [facility] [id number] [place] [address] Mar, [facility] [place] [facility] [address] [id number] [place] [address] Mar, [facility] [place] [facility] [address] [id number] [place] [address] Mar, [facility] [place] [facility] [address] [id number] [place] [address] Mar, [facility] [place] [facility] [address] [id number] [place] [address] Mar, [facility] [place] [facility] [address] [id number] [place] [address] Mar, [facility] [place] [facility] [address] [id number] [place] [address] Mar, [facility] [place] [facility] [address] [id number] [place] [address] February, [facility] [place] [facility] [address] [id number] [place] [address] February, [facility] [place] [facility] [address] [id number] [place] [address] February, [facility] [place] [facility] [address] [id number] [place] [address] February, [facility] [place] [facility] [address] [id number] [place] [address] February, [facility] [place] [facility] [address] [id number] [place] [address] February, [facility] [place] [facility] [address] [id number] [place] [address] February, [facility] [place] [facility] [address] [id number] [place] [address] February, [facility] [place] [facility] [address] [id number] [place] [address] February, [facility] [place] [facility] [address] [id number] [place] [address] February, [facility] [place] [facility] [address] [id number] [place] [address] February, [facility] [place] [facility] [address] [id number] [place] [address] February, [facility] [place] [facility] [address] [id number] [place] [address] Jan, [facility] [place] [facility] [address] [id number] [place] [address] Jan, [facility] [place] [facility] [address] [id number] [place] [address] Jan, [facility] [place] [facility] [address] [id number] [place] [address] Jan, [facility] [place] [facility] [address] [id number] [place] [address] Jan, [facility] [place] [facility] [address] [id number] [place] [address] Jan, [facility] [place] [facility] [address] [id number] [place] [address] Dec, [facility] [place] [facility] [address] [id number] [place] [address] Dec, [facility] [place] [facility] [address] [id number] [place] [address] Dec, [facility] [place] [facility] [address] [id number] [place] [address] Dec, [facility] [place] [facility] [address] [id number] [place] [address] Dec, [facility] [place] [facility] [address] [id number] [place] [address] Dec, [facility] [place] [facility] [address] [id number] [place] [address] Nov, [facility] [place] [facility] [address] [id number] [place] [address] Nov, [facility] [place] [facility] [address] [id number] [place] [address] Nov, [facility] [place] [facility] [address] [id number] [place] [address] Nov, [facility] [place] [facility] [address] [id number] [place] [address] Oct, [facility] [place] [facility] [address] [id number] [place] [address] Oct, [facility] [place] [facility] [address] [id number] [place] [address] Oct, [facility] [place] [facility] [address] [id number] [place] [address] Oct, [facility] [place] [facility] [address] [id number] [place] [address] Oct, [facility] [place] [facility] [address] [id number] [place] [address] Oct, [facility] [place] [facility] [address] [id number] [place] [address] Oct, [facility] [place] [facility] [address] [id number] [place] [address] Oct, [facility] [place] [facility] [address] [id number] [place] [address] Oct, [facility] [place] [facility] [address] [id number] [place] [address] Sep, [facility] [place] [facility] [address] [id number] [place] [address] Sep, [facility] [place] [facility] [address] [id number] [place] [address] Sep, [facility] [place] [facility] [address] [id number] [place] [address] Sep, [facility] [place] [facility] [address] [id number] [place] [address] 16 Sep, 2013 [facility] [place] [facility] [address] [facility] [id number] [place] [address] Sep, [facility] [place] [facility] [address] [id number] [place] [address] Sep, [facility] [place] [facility] [address] [id number] [place] [address] Aug, [facility] [place] [facility] [address] [id number] [place] [address] Aug, [facility] [place] [facility] [address] [id number] [place] [address] Jul, [facility] [place] [facility] [address] [id number] [place] [address] 28 Jul, 2013 [facility] [place] [facility] [address] [id number] [place] [address] 14 Jul, 2013 [facility] [place] [facility] [address] [id number] [place] [address] 14 Jul, 2013 [facility] [place] [facility] [address] [id number] [place] [address] Jul, [facility] [place] [facility] [address] [id number] [place] [address] Jul, [facility] [place] [facility] [address] [id number] [place] [address] 25 Jun, 2013 [facility] [place] [facility] [address] [id number] [place] [address] 16 Jun, 2013 [facility] [place] [facility] [address] [id number] [place] [address] 13 Jun, 2013 [facility] [place] [facility] [address] [id number] [place] [address] 30 May, 2013 [facility] [place] [facility] [address] [id number] [place] [address] May, [facility] [place] [facility] [address] [id number] [place] [address] Apr, [facility] [address] [id number] [place] [address] Apr, [facility] [address] [id number] [place] [address] Apr, [facility] [place] [facility] [address] [id number] [place] [address] Mar, [facility] [place] [facility] [address] [id number] [place] [address] Mar, [facility] [place] [facility] [address] [id number] [place] [address] February, [facility] [address] [id number] [place] [address] February, [facility] [place] [address] [id number] [place] [address] Jan, [facility] [id number] [place] [address] Jan, [facility] [address] [id number] [place] [address] Dec, [facility] [id number] [place] [address] Nov, [facility] [address] [id number] [place] [address] Nov, [facility] [address] [id number] [place] [address] Nov, [facility] [address] [id number] [place] [address] Oct, [facility] [address] [id number] [place] [address] Aug, [facility] [address] [id number] [place] [address] Aug, [facility] [address] [id number] [place] [address] Aug, [facility] [address] [id number] [place] [address] 08 Aug, 2012 [facility] [address] [facility] [id number] [facility] [address] 26 Jun, 2012 [facility] [address] [id number] [place] [address] 10 Jun, 2012 [facility] [address] [id number] [place] [address] 08 Jun, 2012 [facility] [address] [id number] [place] [address] 07 Jun, 2012 [facility] [address] [id number] [place] [address] 05 Jun, 2012 [facility] [address] [id number] [place] [address] 31 May, 2012 [facility] [address] [id number] [place] [address] 14 May, 2012 [facility] [address] [id number] [place] [address] May, [facility] [address] [id number] [place] [address] May, [facility] [address] [id number] [place] [address] Mar, [facility] [address] [id number] [place] [address] Mar, [facility] [address] [id number] [place] [address] February, [facility] [address] [id number] [place] [address] 15 Feb, 2012 [facility] [address] [id number] [place] [address] 25 Jan, 2012 [facility] [address] [id number] [place] [address] 17 Jan, 2012 [facility] [address] [id number] [place] [address] 13 Jan, 2012 [facility] [address] [id number] [place] [address] 12 Jan, 2012 [facility] [address] [id number] [place] [address] Jan, [facility] [address] [id number] [place] [address] 20 Nov, 2011 [facility] [address] [id number] [place] [address] 15 Nov, 2011 [facility] [address] [id number] [place] [address] 10 Nov, 2011 [facility] [address] [id number] [place] [address] Oct, [facility] [address] [id number] [place] [address] 14 Sep, 2011 [facility] [id number] [place] [address] 14 Sep, 2011 [facility] [id number] [place] [address] Sep, [facility] [address] [id number] [place] [address] Aug, [facility] [id number] [place] [address] Aug, [facility] [id number] [place] [address] Jul, [facility] [address] [id number] [place] [address] Jul, [facility] [address] [id number] [place] [address] Jun, [facility] [id number] [place] [address] 17 Nov, 2009 [facility] [address] [id number] [place] [address] Aug, [facility] [id number] [place] [address] Mar, [facility] [address] [facility] [id number] [place] [address] Nov, IMMUNIZATIONS No Known Immunizations SOCIAL HISTORY Never Assessed REASON FOR VISIT PLAN OF CARE VITAL SIGNS Height 65 in 2013-11-28 Weight 236 lbs 2013-11-28 Temperature 98 degrees Fahrenheit 2013-11-28 Heart Rate 80 bpm 2013-11-28 Respiratory Rate 20 2013-11-28 Blood pressure systolic 140 mmHg 2013-11-28 Blood pressure diastolic 82 mmHg 2013-11-28 MEDICATIONS Unknown Medications RESULTS No Results PROCEDURES [...]
--- OUTSIDE RECORDS SUMMARY | 2020-03-15 07:05 | XMS REPORT ---
Author Author Marleny DIAZ Organization [facility] Address [address] [place] [address] Care Team Providers Care Rn Emergency Name Role Phone LIVE DIAZ Unavailable PROBLEMS Type Condition ICD9-CM Code GEP76-GM Code Onset Dates Condition S tatus SNOMED Code Problem Essential tremor G25.0 Active 609 276254 Problem Major depressive disorder, recurrent episode, moderate deg ree F33.1 Active 27203753 Problem Mitral valve prolapse I34.1 Active 373498065 Problem Hx of fracture of left hip Z87.81 Act west 148442428 Problem Chronic obstructive pulmonary disease, unspecified COPD ty pe J44.9 Active 52501829 Problem Morbid obesity due to excess calories E66.01 Active 461293319 Problem Osteopenia of multiple sites M85.89 A ctive 520385098 Problem Acquired absence of both cervix and uterus Z90.710 Active 661552299 Problem Family history of colon cancer Z80.0 Active 198961988 Problem Asymptomatic postprocedural ovarian failure E89.40 Active 931030513 Problem Other chronic pain G89.29 Active 8 9669477 Problem Back pain with history of spinal surgery M54.9 Active 282562104 Problem Hyperlipidemia, unspecified hyperlipidemia type E7 8.5 Active 88543940 Problem Colon cancer screening Z12.11 Active 811000003 Problem Post menopausal syndrome N95.1 Activ e [id number] ALLERGIES No Information ENCOUNTERS Encounter Location Date Diagnosis [facility] [id number] [place] [address] Jan, [facility] [address] [place] [address] 18 Dec, 2019 [facility] [address] [id number] [place] [address] 05 Dec, 2019 Post menopausal syndrome N95.1 and Acquired absence of both cervix and uterus Z90.710 [facility] [address] [address] Dec, Major depressive disorder, recurrent epi sode, moderate degree F33.1 [facility] [address] [address] Nov, Major depressive disorder, recurrent episode, moderate degree F33.1 ; Morbid obesity due to excess calories E66.01 ; Hyperlipidemia, unspecified hyperlipidemia type E78.5 ; Colon cancer screening Z12.11 and Hormone replacement therapy (postmenopausal) Z79.890 [facility] [address] [address] Nov, [facility] [address] [address] Nov, Lumbar radiculopathy, acute M54.16 [facility] [address] [address] Nov, Other chronic pain G89.29 [facility] [address] [address] Nov, [facility] [address] [address] Nov, Hyperlipidemia, unspecified hyperlipidemia type E78.5 [place] [address] [address] Nov, [place] [address] [address] Oct, Major depressive disorder, recurrent epi sode, moderate degree F33.1 [place] [address] [address] Oct, Lumbar radiculopathy, acute M54.16 [place] [address] [address] 17 Oct, 2019 [place] [address] [address] Oct, Back pain with history of spinal surgery M54.9 ; Major depressive disorder, recurrent episode, moderate degree F33.1 ; Osteopenia of multiple sites M85.89 ; Easy bruising R23.8 ; Morbid obesity due to excess calories E66.01 ; Sore throat J02.9 ; Cough R05 ; Therapeutic drug monitoring Z51.81 and Severe back pain M54.9 [place] [address] [address] 07 Oct, 2019 Major depressive disorder, recurrent epi sode, moderate degree F33.1 [place] [address] [address] Sep, Lumbar radiculopathy, acute M54.16 [place] [address] [address] Sep, [place] [address] [address] Sep, Laryngitis J04.0 ; Asymptomatic menopaus al state Z78.0 and Hx of fracture of left hip Z87.81 [place] [address] [address] Sep, Major depressive disorder, recurrent epi sode, moderate degree F33.1 [place] [address] [address] Sep, [place] [address] [address] Aug, [place] [address] [address] Aug, [address] [address] Aug, Family history of colon cancer Z80.0 ; C hronic obstructive pulmonary disease, unspecified COPD type J44.9 ; Essential tremor G25.0 ; Mitral valve prolapse I34.1 ; Other chronic pain G89.29 ; Hx of fracture of left hip Z87.81 and Encounter for immunization Z23 [place] [address] [address] Aug, Major depressive disorder, recurrent epi sode, moderate degree F33.[address] [place] [address] Aug, Muscle spasm M62.838 ; Sever e back pain M54.9 and Hx of spinal surgery Z98.[address] [place] [address] Aug, [facility] [address] [facility] [id number] [place] [address] Aug, Sore throat J02.9 ; Cough R05 and Viral upper respiratory illness J06.9 [facility] [id number] [place] [address] Aug, Major depressive disorder, recurrent epi sode, moderate degree F33.1 [address] [place] [address] Jul, [address] [place] [address] Jul, [address] [place] [address] Jul, [address] [place] [address] Jul, [facility] [address] [place] [address] Jul, Major depressive disorder, recurrent epi sode, moderate degree F33.1 [facility] [address] [place] [address] Jul, [address] [place] [address] Jul, [facility] [id number] [place] [address] Jul, Encounter for immunization Z23 [address] [place] [address] Jul, Restrictive airway disease J 98.[address] [place] [address] Jul, Screening for breast cancer Z12.39 [facility] [address] [place] [address] Jul, Major depressive disorder, recurrent epi sode, moderate degree F33.1 [address] [place] [address] Jun, [address] [place] [address] Jun, [address] [place] [address] Jun, Shortness of breath R06.02 [address] [place] [address] Jun, Shortness of breath R06.02 [place] [address] [place] [address] Jun, Shortness of breath R06.02 a nd Restrictive lung disease J98.4 [facility] [id number] [place] [address] Jun, Major depressive disorder, recurrent epi sode, moderate degree F33.1 [address] [place] [address] Jun, [place] [id number] [place] [address] Jun, History of tobacco use Z87.891 ; Screeni ng for breast cancer Z12.39 and Trigger point M79.10 [place] [address] [place] [address] Jun, [address] [place] [address] Jun, Major depressive disorder, r ecurrent episode, moderate degree F33.1 ; Trigger point M79.10 ; History of tobacco use Z87.891 and Screening for breast cancer Z12.39 [facility] [address] [place] [address] Jun, Major depressive disorder, recurrent epi sode, moderate degree F33.1 [facility] [address] [place] [address] May, Major depressive disorder, recurrent epi sode, moderate degree F33.1 [facility] [address] [place] [address] May, Essential tremor G25.0 ; Can dida rash of groin B37.89 and History of hypertension Z86.79 [facility] [place] [address] [place] [address] May, [facility] [address] [place] [address] May, [facility] [id number] [place] [address] May, Major depressive disorder, recurrent epi sode, moderate degree F33.1 [facility] [address] [place] [address] Apr, [facility] [place] [address] [id number] [place] [address] Apr, [facility] [address] [place] [address] Mar, [facility] [address] [place] [address] Mar, [facility] [address] [place] [address] Mar, [facility] [address] [place] [address] Mar, [facility] [address] [place] [address] Mar, [facility] [place] [address] [id number] [place] [address] Mar, Spinal stenosis of lumbar region without neurogenic claudication M48.061 [facility] [place] [address] [facility] [id number] [place] [address] Mar, Therapeutic drug monitoring Z51.81 [facility] [place] [facility] [address] [place] [address] February, Therapeutic drug monitoring Z51.81 [facility] [address] [place] [address] Jan, [facility] [address] [place], [place] [address] [place] [address] Jan, [facility] [address] [place] [address] Jan, [facility] [address] [place] [address] Dec, [facility] [address] [place] [address] Dec, [facility] [address] [place] [address] Dec, [facility] [address] [place] [address] Nov, [facility] [facility] [address] [place] [address] Nov, [facility] [address] [id number] [place] [address] Sep, Dental examination Z01.20 [facility] [address] [id number] [place] [address] 10 Jun, 2015 Dental examination V72.2 [facility] [id number] [place] [address] 14 Jan, 2015 [facility] [id number] [place] [address] Jan, [facility] [id number] [place] [address] Oct, [facility] [place] [facility] [address] [facility] [id number] [place] [address] Oct, [facility] [place] [facility] [id number] [place] [address] Jul, [facility] [place] [facility] [id number] [place] [address] Jul, [facility] [place] [facility] [id number] [place] [address] Jun, [facility] [place] [facility] [id number] [place] [address] Jun, 2013 [facility] [place] [facility] [id number] [place] [address] May, [facility] [place] [facility] [id number] [place] [address] May, [facility] [place] [facility] [id number] [place] [address] May, [facility] [place] [facility] [id number] [place] [address] May, [facility] [place] [facility] [id number] [place] [address] May, [facility] [place] [facility] [id number] [place] [address] May, [facility] [place] [facility] [id number] [place] [address] May, [facility] [place] [facility] [id number] [place] [address] May, [facility] [place] [facility] [id number] [place] [address] Apr, [facility] [place] [facility] [id number] [place] [address] Apr, [facility] [place] [facility] [id number] [place] [address] Apr, [facility] [place] [facility] [id number] [place] [address] 16 Apr, 2013 [facility] [place] [facility] [address] [facility] [id number] [facility] [place] [address] 16 Apr, 2013 [facility] [place] [facility] [address] [facility] [id number] [facility] [place] [address] 16 Apr, 2013 [facility] [place] [facility] [address] [facility] [id number] [facility] [place] [address] 15 Apr, 2013 [facility] [place] [facility] [address] [facility] [id number] [facility] [place] [address] 15 Apr, 2013 [facility] [place] [facility] [address] [facility] [id number] [facility] [place] [address] Apr, 2013 [facility] [place] [facility] [address] [facility] [id number] [place] [address] Apr, 2013 [facility] [place] [facility] [id number] [place] [address] Apr, 2013 [facility] [place] [facility] [id number] [facility] [place] [address] Apr, 2013 [facility] [place] [facility] [address] [facility] [id number] [place] [address] Apr, 2013 [facility] [place] [facility] [id number] [place] [address] Apr, 2013 [facility] [place] [facility] [address] [facility] [id number] [place] [address] Apr, 2013 [facility] [place] [facility] [id number] [place] [address] Apr, 2013 [facility] [place] [facility] [address] [facility] [id number] [place] [address] Apr, 2013 [facility] [place] [facility] [address] [facility] [id number] [place] [address] Mar, 2013 [facility] [place] [facility] [address] [facility] [id number] [place] [address] Mar, 2013 [facility] [place] [facility] [id number] [place] [address] Mar, 2013 [facility] [place] [facility] [address] [facility] [id number] [place] [address] Mar, [facility] [place] [facility] [address] [id number] [place] [address] Mar, [facility] [place] [facility] [address] [facility] [id number] [place] [address] Mar, [facility] [place] [facility] [id number] [place] [address] Mar, [facility] [place] [facility] [id number] [place] [address] Mar, [facility] [place] [facility] [address] [id number] [place] [address] Mar, [facility] [place] [facility] [id number] [place] [address] Mar, [facility] [place] [facility] [id number] [place] [address] Mar, [facility] [place] [facility] [id number] [place] [address] Mar, [facility] [place] [facility] [id number] [place] [address] February, [facility] [place] [facility] [id number] [place] [address] February, [facility] [place] [facility] [id number] [place] [address] February, [facility] [place] [facility] [id number] [place] [address] February, [facility] [place] [facility] [address] [id number] [place] [address] February, [facility] [place] [facility] [address] [id number] [place] [address] February, [facility] [place] [facility] [id number] [place] [address] February, [facility] [place] [facility] [id number] [place] [address] February, [facility] [place] [facility] [id number] [place] [address] February, [facility] [place] [facility] [id number] [place] [address] February, [facility] [place] [facility] [id number] [place] [address] February, [facility] [place] [facility] [id number] [place] [address] February, [facility] [place] [facility] [id number] [place] [address] Jan, [facility] [place] [facility] [id number] [place] [address] Jan, [facility] [place] [facility] [id number] [place] [address] Jan, [facility] [place] [facility] [id number] [place] [address] Jan, [facility] [place] [facility] [id number] [place] [address] Jan, [facility] [place] [facility] [id number] [place] [address] Jan, [facility] [place] [facility] [id number] [place] [address] Dec, [facility] [place] [facility] [id number] [place] [address] Dec, [facility] [place] [facility] [id number] [place] [address] Dec, [facility] [place] [facility] [id number] [place] [address] Dec, [facility] [place] [facility] [id number] [place] [address] Dec, [facility] [place] [facility] [id number] [place] [address] Dec, [facility] [place] [facility] [id number] [place] [address] Nov, [facility] [place] [facility] [id number] [place] [address] Nov, [facility] [place] [facility] [id number] [place] [address] Nov, [facility] [place] [facility] [id number] [place] [address] Nov, [facility] [place] [facility] [id number] [place] [address] Oct, [facility] [place] [facility] [id number] [place] [address] Oct, [facility] [place] [facility] [id number] [place] [address] Oct, [facility] [place] [facility] [id number] [place] [address] Oct, [facility] [place] [facility] [id number] [place] [address] Oct, [facility] [place] [facility] [id number] [place] [address] Oct, [facility] [place] [facility] [id number] [place] [address] Oct, [facility] [place] [facility] [id number] [place] [address] Oct, [facility] [place] [facility] [id number] [place] [address] Oct, [facility] [place] [facility] [id number] [place] [address] Sep, [facility] [place] [facility] [id number] [place] [address] Sep, [facility] [place] [facility] [id number] [place] [address] Sep, [facility] [place] [facility] [id number] [place] [address] Sep, [facility] [place] [facility] [id number] [place] [address] 16 Sep, 2013 [facility] [place] [facility] [address] [facility] [id number] [place] [address] Sep, [facility] [place] [facility] [id number] [place] [address] Sep, [facility] [place] [facility] [id number] [place] [address] Aug, [facility] [place] [facility] [id number] [place] [address] Aug, [facility] [place] [facility] [id number] [place] [address] Jul, [facility] [place] [facility] [id number] [place] [address] 28 Jul, 2013 [facility] [place] [facility] [id number] [place] [address] 14 Jul, 2013 [facility] [place] [facility] [id number] [place] [address] 14 Jul, 2013 [facility] [place] [facility] [id number] [place] [address] Jul, [facility] [place] [facility] [id number] [place] [address] Jul, [facility] [place] [facility] [id number] [place] [address] 25 Jun, 2013 [facility] [place] [facility] [id number] [place] [address] 16 Jun, 2013 [facility] [place] [facility] [id number] [place] [address] 13 Jun, 2013 [facility] [place] [facility] [id number] [place] [address] 30 May, 2013 [facility] [place] [facility] [id number] [place] [address] May, [facility] [place] [facility] [id number] [place] [address] Apr, [facility] [id number] [place] [address] Apr, [facility] [id number] [place] [address] Apr, [facility] [place] [facility] [id number] [place] [address] Mar, [facility] [place] [facility] [id number] [place] [address] Mar, [facility] [place] [facility] [id number] [place] [address] February, [facility] [id number] [place] [address] February, [facility] [place] [facility] [id number] [place] [address] Jan, [facility] [place] [facility] [id number] [place] [address] Jan, [facility] [place] [facility] [id number] [place] [address] Dec, [facility] [id number] [place] [address] Nov, [facility] [id number] [place] [address] Nov, [facility] [id number] [place] [address] Nov, [facility] [id number] [place] [address] Oct, [facility] [id number] [place] [address] Aug, [facility] [id number] [place] [address] Aug, [facility] [id number] [place] [address] Aug, [facility] [id number] [place] [address] 08 Aug, 2012 [facility] [address] [facility] [address] [facility] [id number] [facility] [place] [address] 26 Jun, 2012 [facility] [id number] [place] [address] 10 Jun, 2012 [facility] [id number] [place] [address] 08 Jun, 2012 [facility] [id number] [place] [address] 07 Jun, 2012 [facility] [id number] [place] [address] 05 Jun, 2012 [facility] [id number] [place] [address] 31 May, 2012 [facility] [id number] [place] [address] 14 May, 2012 [facility] [id number] [place] [address] May, [facility] [id number] [place] [address] May, [facility] [id number] [place] [address] Mar, [facility] [id number] [place] [address] Mar, [facility] [id number] [place] [address] February, [facility] [id number] [place] [address] 15 Feb, 2012 [facility] [id number] [place] [address] 25 Jan, 2012 [facility] [id number] [place] [address] 17 Jan, 2012 [facility] [id number] [place] [address] 13 Jan, 2012 [facility] [id number] [place] [address] 12 Jan, 2012 [facility] [id number] [place] [address] Jan, [facility] [id number] [place] [address] 20 Nov, 2011 [facility] [id number] [place] [address] 15 Nov, 2011 [facility] [id number] [place] [address] 10 Nov, 2011 [facility] [id number] [place] [address] Oct, [facility] [id number] [place] [address] 14 Sep, 2011 [facility] [id number] [place] [address] 14 Sep, 2011 [facility] [id number] [place] [address] Sep, [facility] [id number] [place] [address] Aug, [facility] [id number] [place] [address] Aug, [facility] [id number] [place] [address] Jul, [facility] [id number] [place] [address] Jul, [facility] [id number] [place] [address] Jun, [facility] [id number] [place] [address] 17 Nov, 2009 [facility] [id number] [place] [address] Aug, [facility] [id number] [place] [address] Mar, [facility] [address] [facility] [id number] [place] [address] Nov, IMMUNIZATIONS No Known Immunizations SOCIAL HISTORY Never Assessed REASON FOR VISIT PLAN OF CARE VITAL SIGNS MEDICATIONS Unknown Medications RESULTS No Results PROCEDURES Procedure Date Ordered Result Body Site THER/PROPH/DIAG INJ, SC/IM December 29, 2013 INJ TRIAMCINOLONE ACETONIDE 10 MG December 29, 2013 INSTRUCTIONS MEDICATIONS ADMINISTERED No Known Medications [...]
--- OUTSIDE RECORDS SUMMARY | 2020-03-15 07:05 | XMS REPORT ---
Author Author Marleny REHMAN LOIS Organization [facility] Address [address] [place] [address] Care Team Providers Care Wheel And Axle Inspector Name Role Phone LOIS REHMAN Unavailable PROBLEMS Type Condition ICD9-CM Code [id number] Code Onset Dates Condition S tatus SNOMED Code Problem Essential tremor G25.0 Active 603 433291 Problem Major depressive disorder, recurrent episode, moderate deg ree F33.1 Active 91634930 Problem Mitral valve prolapse I34.1 Active 489708355 Problem Hx of fracture of left hip Z87.81 Act west 968706520 Problem Chronic obstructive pulmonary disease, unspecified COPD ty pe J44.9 Active 02940925 Problem Morbid obesity due to excess calories E66.01 Active 156172645 Problem Osteopenia of multiple sites M85.89 A ctive 697688368 Problem Acquired absence of both cervix and uterus Z90.710 Active 876164001 Problem Family history of colon cancer Z80.0 Active 033686018 Problem Asymptomatic postprocedural ovarian failure E89.40 Active 199046086 Problem Other chronic pain G89.29 Active 8 0188833 Problem Back pain with history of spinal surgery M54.9 Active 791018629 Problem Hyperlipidemia, unspecified hyperlipidemia type E7 8.5 Active 29500494 Problem Colon cancer screening Z12.11 Active 146883489 Problem Post menopausal syndrome N95.1 Activ e [id number] ALLERGIES No Information ENCOUNTERS Encounter Location Date Diagnosis [facility] [address] [id number] [place] [address] 09 Jan, 2020 [facility] [address] [id number] [place] [address] 18 Dec, 2019 [facility] [address] [id number] [place] [address] 05 Dec, 2019 Post menopausal syndrome N95.1 and Acquired absence of both cervix and uterus Z90.710 [facility] [id number] [place] [address] Dec, Major depressive disorder, recurrent epi sode, moderate degree F33.1 [facility] [address] [address] Nov, Major depressive disorder, recurrent episode, moderate degree F33.1 ; Morbid obesity due to excess calories E66.01 ; Hyperlipidemia, unspecified hyperlipidemia type E78.5 ; Colon cancer screening Z12.11 and Hormone replacement therapy (postmenopausal) Z79.890 [facility] [address] [address] Nov, [facility] [address] [address] Nov, Lumbar radiculopathy, acute M54.16 [facility] [address] [address] Nov, Other chronic pain G89.29 [facility] [address] [address] Nov, [facility] [address] [address] Nov, Hyperlipidemia, unspecified hyperlipidemia type E78.5 [place] [address] [address] Nov, [place] [address] [address] Oct, Major depressive disorder, recurrent epi sode, moderate degree F33.1 [place] [address] [address] Oct, Lumbar radiculopathy, acute M54.16 [place] [address] [address] 17 Oct, 2019 [place] [address] [address] 15 Oct, 2019 Back pain with history of spinal surgery M54.9 ; Major depressive disorder, recurrent episode, moderate degree F33.1 ; Osteopenia of multiple sites M85.89 ; Easy bruising R23.8 ; Morbid obesity due to excess calories E66.01 ; Sore throat J02.9 ; Cough R05 ; Therapeutic drug monitoring Z51.81 and Severe back pain M54.9 [place] [address] [address] Oct, Major depressive disorder, recurrent epi sode, moderate degree F33.1 [place] [address] [address] Sep, Lumbar radiculopathy, acute M54.16 [place] [address] [address] Sep, [address] [address] Sep, Laryngitis J04.0 ; Asymptomatic menopaus al state Z78.0 and Hx of fracture of left hip Z87.81 [place] [address] [address] Sep, Major depressive disorder, recurrent epi sode, moderate degree F33.1 [place] [address] [address] Sep, [place] [address] [address] Aug, [place] [address] [address] Aug, [address] [address] Aug, Family history of colon cancer Z80.0 ; C hronic obstructive pulmonary disease, unspecified COPD type J44.9 ; Essential tremor G25.0 ; Mitral valve prolapse I34.1 ; Other chronic pain G89.29 ; Hx of fracture of left hip Z87.81 and Encounter for immunization Z23 [address] [address] Aug, Major depressive disorder, recurrent epi sode, moderate degree F33.[address] [place] [address] Aug, Muscle spasm M62.838 ; Sever e back pain M54.9 and Hx of spinal surgery Z98.[address] [place] [address] Aug, [facility] [address] [facility] [id number] [address] Aug, Sore throat J02.9 ; Cough R05 and Viral upper respiratory illness J06.9 [place] [id number] [place] [address] Aug, Major depressive disorder, recurrent epi sode, moderate degree F33.[address] [place] [address] Jul, [address] [place] [address] Jul, [address] [place] [address] Jul, [address] [place] [address] Jul, [facility] [address] [id number] [place] [address] Jul, Major depressive disorder, recurrent epi sode, moderate degree F33.1 [facility] [address] [id number] [place] [address] Jul, [address] [place] [address] Jul, [facility] [id number] [place] [address] Jul, Encounter for immunization Z23 [address] [place] [address] Jul, Restrictive airway disease J 98.[address] [place] [address] Jul, Screening for breast cancer Z12.39 [place] [address] [id number] [place] [address] Jul, Major depressive disorder, recurrent epi sode, moderate degree F33.1 [address] [place] [address] Jun, [address] [place] [address] Jun, [place] [address] [place] [address] Jun, Shortness of breath R06.02 [address] [place] [address] Jun, Shortness of breath R06.02 [address] [place] [address] Jun, Shortness of breath R06.02 a nd Restrictive lung disease J98.4 [place] [address] [id number] [place] [address] Jun, Major depressive disorder, recurrent epi sode, moderate degree F33.1 [address] [place] [address] Jun, [place] [address] [id number] [place] [address] Jun, History of tobacco use Z87.891 ; Screeni ng for breast cancer Z12.39 and Trigger point M79.10 [place] [address] [address] [address] Jun, [address] [place] [address] Jun, Major depressive disorder, r ecurrent episode, moderate degree F33.1 ; Trigger point M79.10 ; History of tobacco use Z87.891 and Screening for breast cancer Z12.39 [facility] [address] [id number] [place] [address] Jun, Major depressive disorder, recurrent epi sode, moderate degree F33.1 [facility] [address] [id number] [place] [address] May, Major depressive disorder, recurrent epi sode, moderate degree F33.1 [facility] [address] [place] [address] May, Essential tremor G25.0 ; Can dida rash of groin B37.89 and History of hypertension Z86.79 [facility] [address] [place] [address] May, [facility] [address] [place] [address] May, [facility] [address] [id number] [place] [address] May, Major depressive disorder, recurrent epi sode, moderate degree F33.1 [facility] [address] [place] [address] Apr, [facility] [address] [facility] [address] Apr, [facility] [address] [place] [address] Mar, [facility] [address] [place] [address] Mar, [facility] [address] [place] [address] Mar, [facility] [address] [place] [address] Mar, [facility] [address] [place] [address] Mar, [facility] [address] [id number] [place] [address] Mar, Spinal stenosis of lumbar region without neurogenic claudication M48.061 [facility] [address] [facility] [id number] [address] Mar, Therapeutic drug monitoring Z51.81 [facility] [address] [place] [address] February, Therapeutic drug monitoring Z51.81 [facility] [address] [place] [address] Jan, [facility] [address] [place] [address] Jan, [facility] [address] [place] [address] Jan, [facility] [address] [place] [address] Dec, [facility] [address] [facility] [place] [address] Dec, [facility] [address] [facility] [place] [address] Dec, [facility] [address] [place] [address] [address] [place] [address] Nov, [facility] [address] [place], [place] [address] [place] [address] Nov, [facility] [address] [id number] [place] [address] Sep, Dental examination Z01.20 [facility] [address] [id number] [place] [address] 10 Jun, 2015 Dental examination V72.2 [facility] [id number] [place] [address] 14 Jan, 2015 [facility] [address] [id number] [place] [address] Jan, [facility] [id number] [place] [address] Oct, [facility] [address] [facility] [id number] [place] [address] Oct, [facility] [address] [facility] [id number] [place] [address] Jul, [facility] [address] [facility] [id number] [place] [address] Jul, [facility] [address] [facility] [id number] [facility] [address] Jun, [facility] [address] [facility] [id number] [place] [address] Jun, [facility] [address] [id number] [place] [address] May, [facility] [address] [id number] [place] [address] May, 2013 [facility] [address] [id number] [place] [address] May, [facility] [address] [facility] [id number] [place] [address] May, 2013 [facility] [address] [id number] [place] [address] May, [facility] [address] [id number] [place] [address] May, 2013 [facility] [address] [id number] [place] [address] May, [facility] [address] [facility] [id number] [place] [address] May, [facility] [address] [facility] [id number] [place] [address] Apr, 2013 [facility] [address] [facility] [id number] [place] [address] Apr, 2013 [facility] [address] [id number] [place] [address] Apr, 2013 [facility] [address] [id number] [facility] [address] 16 Apr, 2013 [facility] [address] [id number] [place] [address] 16 Apr, 2013 [facility] [address] [facility] [id number] [place] [address] 16 Apr, 2013 [facility] [address] [id number] [place] [address] 15 Apr, 2013 [facility] [address] [facility] [id number] [place] [address] 15 Apr, 2013 [facility] [address] [facility] [id number] [place] [address] Apr, 2013 [facility] [address] [id number] [place] [address] Apr, 2013 [facility] [address] [id number] [place] [address] Apr, 2013 [facility] [address] [id number] [place] [address] Apr, 2013 [facility] [address] [facility] [id number] [place] [address] Apr, 2013 [facility] [address] [id number] [place] [address] Apr, 2013 [facility] [address] [id number] [place] [address] Apr, 2013 [facility] [address] [id number] [place] [address] Apr, 2013 [facility] [address] [facility] [id number] [place] [address] Apr, 2013 [facility] [address] [id number] [place] [address] Mar, [facility] [address] [id number] [place] [address] Mar, 2013 [facility] [address] [id number] [place] [address] Mar2013 [facility] [address] [facility] [id number] [place] [address] Mar, [facility] [address] [id number] [place] [address] Mar, [facility] [address] [id number] [place] [address] Mar, [facility] [address] [id number] [place] [address] Mar, [facility] [address] [id number] [place] [address] Mar, [facility] [address] [id number] [place] [address] Mar, [facility] [address] [id number] [place] [address] Mar, [facility] [address] [id number] [place] [address] Mar, [facility] [address] [id number] [place] [address] Mar, [facility] [address] [id number] [place] [address] February, [facility] [address] [id number] [place] [address] February, [facility] [address] [id number] [place] [address] February, [facility] [address] [id number] [place] [address] February, [facility] [address] [id number] [place] [address] February, [facility] [address] [id number] [place] [address] February, [facility] [address] [id number] [place] [address] February, [facility] [address] [id number] [place] [address] February, [facility] [address] [facility] [id number] [place] [address] February, [facility] [address] [facility] [id number] [place] [address] February, [facility] [address] [id number] [place] [address] February, [facility] [address] [id number] [place] [address] February, [facility] [address] [facility] [id number] [place] [address] Jan, [facility] [address] [id number] [place] [address] Jan, [facility] [address] [id number] [place] [address] Jan, [facility] [address] [id number] [place] [address] Jan, [facility] [address] [id number] [place] [address] Jan, [facility] [address] [id number] [place] [address] Jan, [facility] [address] [id number] [place] [address] Dec, [facility] [address] [id number] [place] [address] Dec, [facility] [address] [id number] [place] [address] Dec, [facility] [address] [id number] [place] [address] Dec, [facility] [address] [id number] [place] [address] Dec, [facility] [address] [id number] [place] [address] Dec, [facility] [address] [id number] [facility] [address] Nov, [facility] [address] [id number] [place] [address] Nov, [facility] [address] [id number] [place] [address] Nov, [facility] [address] [id number] [place] [address] Nov, [facility] [address] [id number] [place] [address] Oct, [facility] [address] [id number] [place] [address] Oct, [facility] [address] [id number] [place] [address] Oct, [facility] [address] [id number] [place] [address] Oct, [facility] [address] [id number] [place] [address] Oct, [facility] [address] [id number] [place] [address] Oct, [facility] [address] [id number] [place] [address] Oct, [facility] [address] [id number] [place] [address] Oct, [facility] [address] [id number] [place] [address] Oct, [facility] [address] [id number] [place] [address] Sep, [facility] [id number] [place] [address] Sep, [facility] [address] [id number] [place] [address] Sep, [facility] [id number] [place] [address] Sep, [facility] [address] [id number] [place] [address] 16 Sep, 2013 [facility] [address] [id number] [place] [address] Sep, [facility] [address] [id number] [place] [address] Sep, [facility] [address] [id number] [place] [address] Aug, [facility] [address] [id number] [place] [address] Aug, [facility] [address] [id number] [place] [address] Jul, [facility] [address] [id number] [place] [address] Jul, [facility] [id number] [place] [address] 14 Jul, 2013 [facility] [address] [id number] [place] [address] 14 Jul, 2013 [facility] [address] [id number] [place] [address] Jul, [facility] [address] [id number] [place] [address] Jul, [facility] [address] [id number] [place] [address] 25 Jun, 2013 [facility] [address] [id number] [place] [address] 16 Jun, 2013 [facility] [address] [id number] [place] [address] 13 Jun, 2013 [facility] [address] [id number] [place] [address] 30 May, 2013 [facility] [address] [id number] [place] [address] May, [facility] [address] [id number] [place] [address] Apr, [facility] [address] [id number] [facility] [address] Apr, [facility] [address] [id number] [place] [address] Apr, [facility] [address] [id number] [place] [address] Mar, [facility] [address] [id number] [place] [address] Mar, [facility] [address] [id number] [facility] [address] February, [facility] [address] [id number] [place] [address] February, [facility] [address] [id number] [place] [address] Jan, [facility] [address] [id number] [place] [address] Jan, [facility] [address] [id number] [place] [address] Dec, [facility] [address] [id number] [place] [address] Nov, [facility] [address] [id number] [place] [address] Nov, [facility] [address] [id number] [place] [address] Nov, [facility] [address] [id number] [place] [address] Oct, [facility] [address] [id number] [place] [address] Aug, [facility] [address] [id number] [place] [address] Aug, [facility] [address] [id number] [place] [address] Aug, [facility] [id number] [place] [address] 08 Aug, 2012 [facility] [address] [id number] [place] [address] 26 Jun, 2012 [facility] [address] [id number] [place] [address] 10 Jun, 2012 [facility] [address] [id number] [place] [address] 08 Jun, 2012 [facility] [address] [id number] [place] [address] 07 Jun, 2012 [facility] [address] [id number] [place] [address] 05 Jun, 2012 [facility] [address] [id number] [place] [address] 31 May, 2012 [facility] [address] [id number] [place] [address] 14 May, 2012 [facility] [address] [id number] [place] [address] May, [facility] [address] [id number] [place] [address] May, [facility] [address] [id number] [place] [address] Mar, [facility] [address] [id number] [place] [address] Mar, [facility] [address] [id number] [place] [address] February, [facility] [address] [id number] [place] [address] 15 Feb, 2012 [facility] [address] [id number] [place] [address] 25 Jan, 2012 [facility] [address] [id number] [place] [address] 17 Jan, 2012 [facility] [address] [id number] [place] [address] 13 Jan, 2012 [facility] [address] [id number] [place] [address] 12 Jan, 2012 [facility] [address] [id number] [place] [address] 11 Jan, 2012 [facility] [address] [id number] [place] [address] 20 Nov, 2011 [facility] [address] [id number] [place] [address] 15 Nov, 2011 [facility] [address] [id number] [place] [address] 10 Nov, 2011 [facility] [address] [id number] [place] [address] Oct, [facility] [address] [id number] [place] [address] 14 Sep, 2011 [facility] [address] [id number] [place] [address] 14 Sep, 2011 [facility] [address] [id number] [place] [address] 09 Sep, 2011 [facility] [address] [id number] [place] [address] 22 Aug, 2011 [facility] [address] [id number] [place] [address] Aug, [facility] [address] [id number] [place] [address] Jul, [facility] [address] [id number] [place] [address] Jul, [facility] [address] [id number] [place] [address] 18 Jun, 2010 [facility] [address] [id number] [place] [address] 17 Nov, 2009 [facility] [address] [id number] [place] [address] Aug, [facility] [address] [id number] [place] [address] Mar, [facility] [address] [facility] [id number] [place] [address] Nov, IMMUNIZATIONS No Known Immunizations SOCIAL HISTORY Never Assessed REASON FOR VISIT med refill PLAN OF CARE VITAL SIGNS MEDICATIONS Unknown [...]
--- OUTSIDE RECORDS SUMMARY | 2020-03-15 07:05 | XMS REPORT ---
Author Author Marleny Rios Doctor Organization [facility] Address Unknown Phone Unavailable Care Team Providers Care Tag Marker Name Role Phone Migration, Doctor Unavailable Unavailable PROBLEMS Type Condition ICD9-CM Code TVP37-EU Code Onset Dates Condition S tatus SNOMED Code Problem Essential tremor G25.0 Active 609 210916 Problem Major depressive disorder, recurrent episode, moderate deg ree F33.1 Active 41436789 Problem Mitral valve prolapse I34.1 Active 202132190 Problem Hx of fracture of left hip Z87.81 Act west 477966164 Problem Chronic obstructive pulmonary disease, unspecified COPD ty pe J44.9 Active 71269176 Problem Morbid obesity due to excess calories E66.01 Active 962029588 Problem Osteopenia of multiple sites M85.89 A ctive 320680830 Problem Acquired absence of both cervix and uterus Z90.710 Active 493095208 Problem Family history of colon cancer Z80.0 Active 363241754 Problem Asymptomatic postprocedural ovarian failure E89.40 Active 580867545 Problem Other chronic pain G89.29 Active 8 8704775 Problem Back pain with history of spinal surgery M54.9 Active 572527628 Problem Hyperlipidemia, unspecified hyperlipidemia type E7 8.5 Active 20722546 Problem Colon cancer screening Z12.11 Active 265701883 Problem Post menopausal syndrome N95.1 Activ e [id number] ALLERGIES No Information ENCOUNTERS Encounter Location Date Diagnosis [facility] [address] [id number] [place] [address] 09 Jan, 2020 [facility] [address] [id number] [place] [address] Dec, [facility] [address] [facility] [address] 05 Dec, 2019 Post menopausal syndrome N95.1 and Acquired absence of both cervix and uterus Z90.710 [facility] [address] [id number] [place] [address] 04 Dec, 2019 Major depressive disorder, recurrent epi sode, moderate degree F33.1 [facility] [id number] [place] [address] Nov, Major depressive disorder, recurrent episode, moderate degree F33.1 ; Morbid obesity due to excess calories E66.01 ; Hyperlipidemia, unspecified hyperlipidemia type E78.5 ; Colon cancer screening Z12.11 and Hormone replacement therapy (postmenopausal) Z79.890 [facility] [address] [address] Nov, [facility] [address] [address] Nov, Lumbar radiculopathy, acute M54.16 [facility] [address] [address] Nov, Other chronic pain G89.29 [facility] [address] [address] Nov, [facility] [address] [address] Nov, Hyperlipidemia, unspecified hyperlipidemia type E78.5 [place] [address] [address] Nov, [place] [address] [address] Oct, Major depressive disorder, recurrent epi sode, moderate degree F33.1 [place] [address] [address] Oct, Lumbar radiculopathy, acute M54.16 [place] [address] [address] Oct, [place] [address] [address] Oct, Back pain with history of spinal surgery M54.9 ; Major depressive disorder, recurrent episode, moderate degree F33.1 ; Osteopenia of multiple sites M85.89 ; Easy bruising R23.8 ; Morbid obesity due to excess calories E66.01 ; Sore throat J02.9 ; Cough R05 ; Therapeutic drug monitoring Z51.81 and Severe back pain M54.9 [place] [address] [address] 07 Oct, 2019 Major depressive disorder, recurrent epi sode, moderate degree F33.1 [place] [address] [address] Sep, Lumbar radiculopathy, acute M54.16 [place] [address] [address] Sep, [address] [address] Sep, Laryngitis J04.0 ; Asymptomatic menopaus al state Z78.0 and Hx of fracture of left hip Z87.[address] [address] Sep, Major depressive disorder, recurrent epi sode, moderate degree F33.1 [place] [address] [address] Sep, [address] [address] Aug, [place] [address] [address] Aug, [address] [address] Aug, Family history of colon cancer Z80.0 ; C hronic obstructive pulmonary disease, unspecified COPD type J44.9 ; Essential tremor G25.0 ; Mitral valve prolapse I34.1 ; Other chronic pain G89.29 ; Hx of fracture of left hip Z87.81 and Encounter for immunization Z23 [place] [address] [address] Aug, Major depressive disorder, recurrent epi sode, moderate degree F33.1 [place] [address] [place] [address] Aug, Muscle spasm M62.838 ; Sever e back pain M54.9 and Hx of spinal surgery Z98.890 [address] [place] [address] Aug, [facility] [address] [facility] [id number] [place] [address] Aug, Sore throat J02.9 ; Cough R05 and Viral upper respiratory illness J06.9 [facility] [address] [id number] [place] [address] Aug, Major depressive disorder, recurrent epi sode, moderate degree F33.1 [address] [place] [address] Jul, [place] [address] [place] [address] Jul, [address] [place] [address] Jul, [address] [place] [address] Jul, [facility] [address] [id number] [place] [address] Jul, Major depressive disorder, recurrent epi sode, moderate degree F33.1 [facility] [id number] [place] [address] Jul, [address] [place] [address] Jul, [facility] [id number] [place] [address] Jul, Encounter for immunization Z23 [address] [place] [address] Jul, Restrictive airway disease J 98.4 [place] [address] [place] [address] Jul, Screening for breast cancer Z12.39 [facility] [id number] [place] [address] Jul, Major depressive disorder, recurrent epi sode, moderate degree F33.1 [address] [place] [address] Jun, [place] [address] [place] [address] Jun, [address] [place] [address] Jun, Shortness of breath R06.02 [place] [address] [address] [place] [address] Jun, Shortness of breath R06.02 [place] [address] [place] [address] Jun, Shortness of breath R06.02 a nd Restrictive lung disease J98.4 [facility] [id number] [place] [address] Jun, Major depressive disorder, recurrent epi sode, moderate degree F33.1 [address] [place] [address] Jun, [facility] [id number] [place] [address] Jun, History of tobacco use Z87.891 ; Screeni ng for breast cancer Z12.39 and Trigger point M79.10 [address] [place] [address] Jun, [place] [address] [address] [place] [address] Jun, Major depressive disorder, r ecurrent episode, moderate degree F33.1 ; Trigger point M79.10 ; History of tobacco use Z87.891 and Screening for breast cancer Z12.39 [facility] [address] [address] Jun, Major depressive disorder, recurrent epi sode, moderate degree F33.1 [facility] [address] [id number] [place] [address] May, Major depressive disorder, recurrent epi sode, moderate degree F33.1 [facility] [address] [place] [address] May, Essential tremor G25.0 ; Can dida rash of groin B37.89 and History of hypertension Z86.79 [facility] [address] [place] [address] May, [facility] [address] [place] [address] May, [facility] [address] [id number] [place] [address] May, Major depressive disorder, recurrent epi sode, moderate degree F33.1 [facility] [address] [place] [address] Apr, [facility] [place] [address] [id number] [place] [address] Apr, [facility] [address] [place] [address] Mar, [facility] [address] [place] [address] Mar, [facility] [address] [place] [address] Mar, [facility] [address] [place] [address] Mar, [facility] [address] [place] [address] Mar, [facility] [place] [address] [id number] [place] [address] Mar, Spinal stenosis of lumbar region without neurogenic claudication M48.061 [facility] [place] [address] [facility] [id number] [place] [address] Mar, Therapeutic drug monitoring Z51.81 [facility] [address] [place] [address] February, Therapeutic drug monitoring Z51.81 [facility] [address] [place] [address] Jan, [facility] [place] [facility] [address] [place] [address] Jan, [facility] [place] [facility] [address] [place] [address] Jan, [facility] [place] [facility] [address] [place] [address] Dec, [facility] [address] [place] [address] Dec, [facility] [place] [facility] [address] [place] [address] Dec, [facility] [address] [place] [address] Nov, [facility] [address] [place] [address] Nov, [facility] [address] [id number] [place] [address] Sep, Dental examination Z01.20 [facility] [id number] [place] [id number] Jun, Dental examination V72.2 [facility] [address] [id number] [place] [address] Jan, [facility] [id number] [place] [address] Jan, [facility] [id number] [place] [address] Oct, [facility] [id number] [place] [address] Oct, [facility] [place] [facility] [address] [facility] [id number] [facility] [place] [address] Jul, [facility] [place] [facility] [address] [facility] [id number] [facility] [place] [address] Jul, [facility] [place] [facility] [address] [facility] [id number] [facility] [place] [address] Jun, 2013 [facility] [place] [facility] [address] [facility] [id number] [facility] [place] [address] Jun, 2013 [facility] [place] [facility] [address] [facility] [id number] [facility] [place] [address] May, [facility] [place] [facility] [address] [id number] [place] [address] May, [facility] [place] [facility] [address] [id number] [place] [address] May, [facility] [place] [facility] [address] [id number] [place] [address] May, [facility] [place] [facility] [address] [facility] [id number] [place] [address] May, [facility] [place] [facility] [address] [id number] [place] [address] May, [facility] [place] [facility] [address] [id number] [place] [address] May, [facility] [place] [facility] [address] [id number] [place] [address] May, [facility] [place] [facility] [address] [facility] [id number] [place] [address] Apr, [facility] [place] [facility] [address] [facility] [id number] [place] [address] Apr, 2013 [facility] [place] [facility] [address] [facility] [id number] [place] [address] Apr, [facility] [place] [facility] [address] [id number] [place] [address] Apr, 2013 [facility] [place] [facility] [address] [id number] [facility] [place] [address] 16 Apr, 2013 [facility] [place] [facility] [address] [facility] [id number] [facility] [place] [address] 16 Apr, 2013 [facility] [place] [facility] [address] [facility] [id number] [place] [address] Apr, 2013 [facility] [place] [facility] [address] [id number] [place] [address] 15 Apr, 2013 [facility] [place] [facility] [address] [facility] [id number] [place] [address] Apr, 2013 [facility] [place] [facility] [address] [facility] [id number] [place] [address] Apr, 2013 [facility] [place] [facility] [address] [id number] [place] [address] Apr, 2013 [facility] [place] [facility] [address] [id number] [place] [address] Apr, 2013 [facility] [place] [facility] [address] [id number] [place] [address] Apr, 2013 [facility] [place] [facility] [address] [id number] [place] [address] Apr, [facility] [place] [facility] [address] [id number] [place] [address] Apr, 2013 [facility] [place] [facility] [address] [id number] [place] [address] Apr, 2013 [facility] [place] [facility] [address] [id number] [place] [address] Apr, 2013 [facility] [place] [facility] [address] [facility] [id number] [place] [address] Mar, [facility] [place] [facility] [address] [id number] [place] [address] Mar, [facility] [place] [facility] [address] [id number] [place] [address] Mar, [facility] [place] [facility] [address] [id number] [place] [address] Mar, [facility] [place] [facility] [address] [id number] [place] [address] Mar, [facility] [place] [facility] [address] [id number] [place] [address] Mar, [facility] [place] [facility] [address] [id number] [place] [address] Mar, [facility] [place] [facility] [address] [id number] [place] [address] Mar, [facility] [place] [facility] [address] [facility] [id number] [place] [address] Mar, [facility] [place] [facility] [address] [id number] [place] [address] Mar, [facility] [place] [facility] [address] [id number] [place] [address] Mar, [facility] [place] [facility] [address] [id number] [place] [address] Mar, [facility] [place] [facility] [address] [id number] [place] [address] February, [facility] [place] [facility] [address] [id number] [place] [address] February, [facility] [place] [facility] [address] [id number] [place] [address] February, [facility] [place] [facility] [address] [id number] [place] [address] February, [facility] [place] [facility] [address] [id number] [place] [address] February, [facility] [place] [facility] [address] [id number] [place] [address] February, [facility] [place] [facility] [address] [id number] [place] [address] February, [facility] [place] [facility] [address] [id number] [place] [address] February, [facility] [place] [facility] [address] [id number] [place] [address] February, [facility] [place] [facility] [address] [facility] [id number] [place] [address] February, [facility] [place] [facility] [address] [facility] [id number] [facility] [place] [address] February, [facility] [place] [facility] [address] [id number] [place] [address] February, [facility] [place] [facility] [address] [id number] [facility] [place] [address] Jan, [facility] [place] [facility] [address] [facility] [id number] [place] [address] Jan, [facility] [place] [facility] [address] [id number] [place] [address] Jan, [facility] [place] [facility] [address] [id number] [place] [address] Jan, [facility] [place] [facility] [address] [id number] [place] [address] Jan, [facility] [place] [facility] [address] [id number] [place] [address] Jan, [facility] [place] [facility] [address] [id number] [place] [address] Dec, [facility] [place] [facility] [address] [id number] [place] [address] Dec, [facility] [place] [facility] [address] [id number] [place] [address] Dec, [facility] [place] [facility] [address] [id number] [place] [address] Dec, [facility] [place] [facility] [address] [id number] [place] [address] Dec, [facility] [place] [facility] [address] [id number] [place] [address] Dec, [facility] [place] [facility] [address] [id number] [place] [address] Nov, [facility] [place] [facility] [address] [id number] [facility] [place] [address] 18 Nov, 2013 [facility] [place] [facility] [address] [id number] [place] [address] Nov, [facility] [place] [facility] [address] [id number] [place] [address] Nov, [facility] [place] [facility] [address] [id number] [place] [address] Oct, [facility] [place] [facility] [address] [id number] [place] [address] Oct, [facility] [place] [facility] [address] [id number] [place] [address] Oct, [facility] [place] [facility] [address] [id number] [place] [address] Oct, [facility] [place] [facility] [address] [id number] [place] [address] Oct, [facility] [place] [facility] [id number] [place] [address] Oct, [facility] [place] [facility] [address] [id number] [place] [address] Oct, [facility] [place] [facility] [address] [id number] [place] [address] Oct, [facility] [place] [facility] [address] [id number] [place] [address] Oct, [facility] [place] [facility] [address] [id number] [place] [address] Sep, [facility] [place] [facility] [address] [id number] [place] [address] Sep, [facility] [place] [facility] [id number] [place] [address] Sep, [facility] [place] [facility] [address] [id number] [place] [address] Sep, [facility] [place] [facility] [address] [id number] [place] [address] Sep, [facility] [place] [facility] [address] [facility] [id number] [place] [address] Sep, [facility] [place] [facility] [address] [id number] [place] [address] Sep, [facility] [place] [facility] [address] [id number] [place] [address] Aug, [facility] [place] [facility] [address] [id number] [place] [address] Aug, [facility] [place] [facility] [address] [id number] [place] [address] Jul, [facility] [place] [facility] [address] [id number] [place] [address] 28 Jul, 2013 [facility] [address] [id number] [place] [address] Jul, [facility] [address] [id number] [place] [address] 14 Jul, 2013 [facility] [address] [id number] [place] [address] Jul, [facility] [address] [id number] [place] [address] Jul, [facility] [address] [id number] [place] [address] 25 Jun, 2013 [facility] [address] [id number] [place] [address] 16 Jun, 2013 [facility] [address] [id number] [place] [address] 13 Jun, 2013 [facility] [address] [id number] [place] [address] May, [facility] [address] [id number] [place] [address] May, [facility] [address] [id number] [place] [address] Apr, [facility] [address] [id number] [place] [address] Apr, [facility] [address] [id number] [place] [address] Apr, [facility] [address] [id number] [place] [address] Mar, [facility] [address] [id number] [place] [address] Mar, [facility] [address] [id number] [place] [address] February, [facility] [address] [id number] [place] [address] February, [facility] [address] [id number] [place] [address] Jan, [facility] [address] [id number] [place] [address] Jan, [facility] [address] [id number] [place] [address] Dec, [facility] [address] [id number] [place] [address] Nov, [facility] [address] [id number] [place] [address] Nov, [facility] [address] [id number] [place] [address] Nov, [facility] [address] [id number] [place] [address] Oct, [facility] [address] [id number] [place] [address] Aug, [facility] [address] [id number] [place] [address] Aug, [facility] [address] [id number] [place] [address] Aug, [facility] [address] [id number] [place] [address] Aug, [facility] [address] [facility] [id number] [place] [address] 26 Jun, 2012 [facility] [address] [id number] [place] [address] 10 Jun, 2012 [facility] [address] [id number] [place] [address] 08 Jun, 2012 [facility] [address] [id number] [place] [address] 07 Jun, 2012 [facility] [address] [id number] [place] [address] 05 Jun, 2012 [facility] [address] [id number] [place] [address] 31 May, 2012 [facility] [address] [id number] [place] [address] 14 May, 2012 [facility] [address] [id number] [place] [address] May, [facility] [address] [id number] [place] [address] May, [facility] [address] [id number] [place] [address] Mar, [facility] [address] [id number] [place] [address] Mar, [facility] [address] [id number] [place] [address] February, [facility] [address] [id number] [place] [address] 15 Feb, 2012 [facility] [address] [id number] [place] [address] 25 Jan, 2012 [facility] [address] [id number] [place] [address] 17 Jan, 2012 [facility] [address] [id number] [place] [address] 13 Jan, 2012 [facility] [address] [id number] [place] [address] 12 Jan, 2012 [facility] [id number] [place] [address] 11 Jan, 2012 [facility] [address] [id number] [place] [address] 20 Nov, 2011 [facility] [address] [id number] [place] [address] 15 Nov, 2011 [facility] [address] [id number] [place] [address] 10 Nov, 2011 [facility] [address] [id number] [place] [address] Oct, [facility] [address] [id number] [place] [address] 14 Sep, 2011 [facility] [address] [id number] [place] [address] 14 Sep, 2011 [facility] [address] [id number] [place] [address] Sep, [facility] [address] [id number] [place] [address] Aug, [facility] [address] [id number] [place] [address] Aug, [facility] [address] [id number] [place] [address] Jul, [facility] [address] [id number] [place] [address] Jul, [facility] [address] [id number] [place] [address] 18 Jun, 2010 [facility] [address] [id number] [place] [address] 17 Nov, 2009 [facility] [address] [id number] [place] [address] Aug, [facility] [address] [id number] [place] [address] Mar, [facility] [address] [id number] [place] [address] Nov, IMMUNIZATIONS No Known Immunizations SOCIAL HISTORY [...]
--- OUTSIDE RECORDS SUMMARY | 2020-03-15 07:05 | XMS REPORT ---
Author Author Marleny DIAZ Organization [facility] Address [address] [place] [address] Care Team Providers Care Live In Housekeeper Name Role Phone LIVE DIAZ Unavailable PROBLEMS Type Condition ICD9-CM Code PBX72-PF Code Onset Dates Condition S tatus SNOMED Code Problem Essential tremor G25.0 Active 609 471702 Problem Major depressive disorder, recurrent episode, moderate deg ree F33.1 Active 52966646 Problem Mitral valve prolapse I34.1 Active 440206801 Problem Hx of fracture of left hip Z87.81 Act west 696101286 Problem Chronic obstructive pulmonary disease, unspecified COPD ty pe J44.9 Active 45597941 Problem Morbid obesity due to excess calories E66.01 Active 617262928 Problem Osteopenia of multiple sites M85.89 A ctive 342602281 Problem Acquired absence of both cervix and uterus Z90.710 Active 941816085 Problem Family history of colon cancer Z80.0 Active 315800776 Problem Asymptomatic postprocedural ovarian failure E89.40 Active 717199174 Problem Other chronic pain G89.29 Active 8 7033905 Problem Back pain with history of spinal surgery M54.9 Active 620286452 Problem Hyperlipidemia, unspecified hyperlipidemia type E7 8.5 Active 58372403 Problem Colon cancer screening Z12.11 Active 076987484 Problem Post menopausal syndrome N95.1 Activ e [id number] ALLERGIES No Information ENCOUNTERS Encounter Location Date Diagnosis [facility] [address] [id number] [place] [address] Jan, [facility] [address] [id number] [place] [address] 18 Dec, 2019 [facility] [address] [id number] [place] [address] 05 Dec, 2019 Post menopausal syndrome N95.1 and Acquired absence of both cervix and uterus Z90.710 [facility] [address] [address] Dec, Major depressive disorder, recurrent epi sode, moderate degree F33.1 [facility] [address] [address] Nov, Major depressive disorder, recurrent episode, moderate degree F33.1 ; Morbid obesity due to excess calories E66.01 ; Hyperlipidemia, unspecified hyperlipidemia type E78.5 ; Colon cancer screening Z12.11 and Hormone replacement therapy (postmenopausal) Z79.890 [facility] [address] [address] Nov, [facility] [address] [address] Nov, Lumbar radiculopathy, acute M54.16 [facility] [address] [address] Nov, Other chronic pain G89.29 [facility] [address] [address] Nov, [facility] [address] [address] Nov, Hyperlipidemia, unspecified hyperlipidemia type E78.5 [place] [address] [address] Nov, [place] [address] [address] Oct, Major depressive disorder, recurrent epi sode, moderate degree F33.1 [place] [address] [address] Oct, Lumbar radiculopathy, acute M54.16 [place] [address] [address] 17 Oct, 2019 [place] [address] [address] Oct, Back pain with history of spinal surgery M54.9 ; Major depressive disorder, recurrent episode, moderate degree F33.1 ; Osteopenia of multiple sites M85.89 ; Easy bruising R23.8 ; Morbid obesity due to excess calories E66.01 ; Sore throat J02.9 ; Cough R05 ; Therapeutic drug monitoring Z51.81 and Severe back pain M54.9 [place] [address] [address] 07 Oct, 2019 Major depressive disorder, recurrent epi sode, moderate degree F33.1 [place] [address] [address] Sep, Lumbar radiculopathy, acute M54.16 [place] [address] [address] Sep, [place] [address] [address] Sep, Laryngitis J04.0 ; Asymptomatic menopaus al state Z78.0 and Hx of fracture of left hip Z87.81 [place] [address] [address] Sep, Major depressive disorder, recurrent epi sode, moderate degree F33.1 [place] [address] [address] Sep, [place] [address] [address] Aug, [place] [address] [address] Aug, [address] [address] Aug, Family history of colon cancer Z80.0 ; C hronic obstructive pulmonary disease, unspecified COPD type J44.9 ; Essential tremor G25.0 ; Mitral valve prolapse I34.1 ; Other chronic pain G89.29 ; Hx of fracture of left hip Z87.81 and Encounter for immunization Z23 [place] [address] [address] Aug, Major depressive disorder, recurrent epi sode, moderate degree F33.[address] [place] [address] Aug, Muscle spasm M62.838 ; Sever e back pain M54.9 and Hx of spinal surgery Z98.[address] [place] [address] Aug, [facility] [address] [facility] [id number] [place] [address] Aug, Sore throat J02.9 ; Cough R05 and Viral upper respiratory illness J06.9 [facility] [address] [place] [id number] [place] [address] Aug, Major depressive disorder, recurrent epi sode, moderate degree F33.1 [address] [place] [address] Jul, [address] [place] [address] Jul, [address] [place] [address] Jul, [address] [place] [address] Jul, [facility] [address] [id number] [place] [address] Jul, Major depressive disorder, recurrent epi sode, moderate degree F33.1 [facility] [address] [id number] [place] [address] Jul, [address] [place] [address] Jul, [facility] [address] [place] [id number] [place] [address] Jul, Encounter for immunization Z23 [address] [place] [address] Jul, Restrictive airway disease J 98.[address] [place] [address] Jul, Screening for breast cancer Z12.39 [facility] [address] [id number] [place] [address] Jul, Major depressive disorder, recurrent epi sode, moderate degree F33.1 [address] [place] [address] Jun, [address] [place] [address] Jun, [address] [place] [address] Jun, Shortness of breath R06.02 [address] [place] [address] Jun, Shortness of breath R06.02 [place] [address] [place] [address] Jun, Shortness of breath R06.02 a nd Restrictive lung disease J98.4 [facility] [address] [place] [id number] [place] [address] Jun, Major depressive disorder, recurrent epi sode, moderate degree F33.1 [address] [place] [address] Jun, [place] [address] [place] [id number] [place] [address] Jun, History of tobacco use Z87.891 ; Screeni ng for breast cancer Z12.39 and Trigger point M79.10 [place] [address] [place] [address] Jun, [address] [place] [address] Jun, Major depressive disorder, r ecurrent episode, moderate degree F33.1 ; Trigger point M79.10 ; History of tobacco use Z87.891 and Screening for breast cancer Z12.39 [facility] [address] [id number] [place] [address] Jun, Major depressive disorder, recurrent epi sode, moderate degree F33.1 [facility] [address] [id number] [place] [address] May, Major depressive disorder, recurrent epi sode, moderate degree F33.1 [facility] [place] [address] [place] [address] May, Essential tremor G25.0 ; Can dida rash of groin B37.89 and History of hypertension Z86.79 [facility] [place] [address] [place] [address] May, [facility] [place] [address] [place] [address] May, [facility] [address] [id number] [place] [address] May, Major depressive disorder, recurrent epi sode, moderate degree F33.1 [facility] [place] [address] [place] [address] Apr, [facility] [place] [address] [id number] [place] [address] Apr, [facility] [address] [place] [address] Mar, [facility] [place] [address] [place] [address] Mar, [facility] [place] [address] [place] [address] Mar, [facility] [address] [place] [address] Mar, [facility] [place] [address] [place] [address] Mar, [facility] [place] [address] [id number] [place] [address] Mar, Spinal stenosis of lumbar region without neurogenic claudication M48.061 [facility] [place] [address] [facility] [id number] [place] [address] Mar, Therapeutic drug monitoring Z51.81 [facility] [place] [address] [place] [address] February, Therapeutic drug monitoring Z51.81 [facility] [place] [address] [place] [address] Jan, [facility] [place] [facility] [address] [place], [place] [address] [place] [address] Jan, [facility] [place] [address] [place] [address] Jan, [facility] [place] [address] [place] [address] Dec, [facility] [place] [address] [place] [address] Dec, [facility] [place] [address] [place] [address] Dec, [facility] [place] [address] [place] [address] Nov, [facility] [place] [address] [place] [address] Nov, [facility] [address] [id number] [place] [id number] Sep, Dental examination Z01.20 [facility] [address] [id number] [place] [id number] 10 Jun, 2015 Dental examination V72.2 [facility] [address] [place] [id number] [place] [address] 14 Jan, 2015 [facility] [address] [place] [id number] [place] [address] Jan, [facility] [address] [id number] [place] [address] Oct, [facility] [place] [facility] [address] [facility] [id number] [place] [address] Oct, [facility] [place] [facility] [address] [id number] [place] [address] Jul, [facility] [place] [facility] [address] [id number] [place] [address] Jul, [facility] [place] [facility] [address] [id number] [place] [address] Jun, [facility] [place] [facility] [address] [id number] [place] [address] Jun, 2013 [facility] [place] [facility] [address] [id number] [place] [address] May, [facility] [place] [facility] [address] [id number] [place] [address] May, [facility] [place] [facility] [address] [id number] [place] [address] May, [facility] [place] [facility] [address] [id number] [place] [address] May, [facility] [place] [facility] [address] [id number] [place] [address] May, [facility] [place] [facility] [address] [id number] [place] [address] May, [facility] [place] [facility] [address] [id number] [place] [address] May, [facility] [place] [facility] [address] [id number] [place] [address] May, [facility] [place] [facility] [address] [id number] [place] [address] Apr, [facility] [place] [facility] [address] [id number] [place] [address] Apr, [facility] [place] [facility] [address] [id number] [place] [address] Apr, [facility] [place] [facility] [address] [id number] [place] [address] 16 Apr, 2013 [facility] [place] [facility] [address] [facility] [id number] [facility] [place] [address] 16 Apr, 2013 [facility] [place] [facility] [address] [facility] [id number] [facility] [place] [address] 16 Apr, 2013 [facility] [place] [facility] [address] [facility] [id number] [facility] [place] [address] 15 Apr, 2013 [facility] [place] [facility] [address] [facility] [id number] [facility] [place] [address] 15 Apr, 2013 [facility] [place] [facility] [address] [facility] [id number] [facility] [place] [address] Apr, 2013 [facility] [place] [facility] [address] [facility] [id number] [place] [address] Apr, 2013 [facility] [place] [facility] [address] [id number] [place] [address] Apr, 2013 [facility] [place] [facility] [address] [id number] [facility] [place] [address] Apr, 2013 [facility] [place] [facility] [address] [facility] [id number] [place] [address] Apr, 2013 [facility] [place] [facility] [address] [id number] [place] [address] Apr, 2013 [facility] [place] [facility] [address] [facility] [id number] [place] [address] Apr, 2013 [facility] [place] [facility] [address] [id number] [place] [address] Apr, 2013 [facility] [place] [facility] [address] [facility] [id number] [place] [address] Apr, 2013 [facility] [place] [facility] [address] [facility] [id number] [place] [address] Mar, 2013 [facility] [place] [facility] [address] [facility] [id number] [place] [address] Mar, 2013 [facility] [place] [facility] [address] [id number] [place] [address] Mar, 2013 [facility] [place] [facility] [address] [facility] [id number] [place] [address] Mar, [facility] [place] [facility] [address] [id number] [place] [address] Mar, [facility] [place] [facility] [address] [facility] [id number] [place] [address] Mar, [facility] [place] [facility] [address] [id number] [place] [address] Mar, [facility] [place] [facility] [address] [id number] [place] [address] Mar, [facility] [place] [facility] [address] [id number] [place] [address] Mar, [facility] [place] [facility] [address] [id number] [place] [address] Mar, [facility] [place] [facility] [address] [id number] [place] [address] Mar, [facility] [place] [facility] [address] [id number] [place] [address] Mar, [facility] [place] [facility] [address] [id number] [place] [address] February, [facility] [place] [facility] [address] [id number] [place] [address] February, [facility] [place] [facility] [address] [id number] [place] [address] February, [facility] [place] [facility] [address] [id number] [place] [address] February, [facility] [place] [facility] [address] [id number] [place] [address] February, [facility] [place] [facility] [address] [id number] [place] [address] February, [facility] [place] [facility] [address] [id number] [place] [address] February, [facility] [place] [facility] [address] [id number] [place] [address] February, [facility] [place] [facility] [address] [id number] [place] [address] February, [facility] [place] [facility] [address] [id number] [place] [address] February, [facility] [place] [facility] [address] [id number] [place] [address] February, [facility] [place] [facility] [address] [id number] [place] [address] February, [facility] [place] [facility] [address] [id number] [place] [address] Jan, [facility] [place] [facility] [address] [id number] [place] [address] Jan, [facility] [place] [facility] [address] [id number] [place] [address] Jan, [facility] [place] [facility] [address] [id number] [place] [address] Jan, [facility] [place] [facility] [address] [id number] [place] [address] Jan, [facility] [place] [facility] [address] [id number] [place] [address] Jan, [facility] [place] [facility] [address] [id number] [place] [address] Dec, [facility] [place] [facility] [address] [id number] [place] [address] Dec, [facility] [place] [facility] [address] [id number] [place] [address] Dec, [facility] [place] [facility] [address] [id number] [place] [address] Dec, [facility] [place] [facility] [address] [id number] [place] [address] Dec, [facility] [place] [facility] [address] [id number] [place] [address] Dec, [facility] [place] [facility] [address] [id number] [place] [address] Nov, [facility] [place] [facility] [address] [id number] [place] [address] Nov, [facility] [place] [facility] [address] [id number] [place] [address] Nov, [facility] [place] [facility] [address] [id number] [place] [address] Nov, [facility] [place] [facility] [address] [id number] [place] [address] Oct, [facility] [place] [facility] [address] [id number] [place] [address] Oct, [facility] [place] [facility] [address] [id number] [place] [address] Oct, [facility] [place] [facility] [address] [id number] [place] [address] Oct, [facility] [place] [facility] [address] [id number] [place] [address] Oct, [facility] [place] [facility] [address] [id number] [place] [address] Oct, [facility] [place] [facility] [address] [id number] [place] [address] Oct, [facility] [place] [facility] [address] [id number] [place] [address] Oct, [facility] [place] [facility] [address] [id number] [place] [address] Oct, [facility] [place] [facility] [address] [id number] [place] [address] Sep, [facility] [place] [facility] [address] [id number] [place] [address] Sep, [facility] [place] [facility] [address] [id number] [place] [address] Sep, [facility] [place] [facility] [address] [id number] [place] [address] Sep, [facility] [place] [facility] [address] [id number] [place] [address] 16 Sep, 2013 [facility] [place] [facility] [address] [facility] [id number] [place] [address] Sep, [facility] [place] [facility] [address] [id number] [place] [address] Sep, [facility] [place] [facility] [address] [id number] [place] [address] Aug, [facility] [place] [facility] [address] [id number] [place] [address] Aug, [facility] [place] [facility] [address] [id number] [place] [address] Jul, [facility] [place] [facility] [address] [id number] [place] [address] 28 Jul, 2013 [facility] [place] [facility] [address] [id number] [place] [address] 14 Jul, 2013 [facility] [place] [facility] [address] [id number] [place] [address] 14 Jul, 2013 [facility] [place] [facility] [address] [id number] [place] [address] Jul, [facility] [address] [id number] [place] [address] Jul, [facility] [address] [id number] [place] [address] 25 Jun, 2013 [facility] [address] [id number] [place] [address] 16 Jun, 2013 [facility] [address] [id number] [place] [address] 13 Jun, 2013 [facility] [address] [id number] [place] [address] 30 May, 2013 [facility] [address] [id number] [place] [address] May, [facility] [address] [id number] [place] [address] Apr, [facility] [address] [id number] [place] [address] Apr, [facility] [address] [id number] [place] [address] Apr, [facility] [address] [id number] [place] [address] Mar, [facility] [address] [id number] [place] [address] Mar, [facility] [address] [id number] [place] [address] February, [facility] [address] [id number] [place] [address] February, [facility] [address] [id number] [place] [address] Jan, [facility] [id number] [place] [address] Jan, [facility] [address] [id number] [place] [address] Dec, [facility] [id number] [place] [address] Nov, [facility] [address] [id number] [place] [address] Nov, [facility] [address] [id number] [place] [address] Nov, [facility] [address] [id number] [place] [address] Oct, [facility] [address] [id number] [place] [address] Aug, [facility] [address] [id number] [place] [address] Aug, [facility] [address] [id number] [place] [address] Aug, [facility] [address] [id number] [place] [address] 08 Aug, 2012 [facility] [address] [facility] [id number] [facility] [place] [address] 26 Jun, 2012 [facility] [address] [id number] [place] [address] 10 Jun, 2012 [facility] [address] [id number] [place] [address] 08 Jun, 2012 [facility] [address] [id number] [place] [address] 07 Jun, 2012 [facility] [address] [id number] [place] [address] 05 Jun, 2012 [facility] [address] [id number] [place] [address] 31 May, 2012 [facility] [address] [id number] [place] [address] 14 May, 2012 [facility] [address] [id number] [place] [address] May, [facility] [address] [id number] [place] [address] May, [facility] [address] [id number] [place] [address] Mar, [facility] [address] [id number] [place] [address] Mar, [facility] [address] [id number] [place] [address] February, [facility] [address] [id number] [place] [address] 15 Feb, 2012 [facility] [address] [id number] [place] [address] 25 Jan, 2012 [facility] [address] [id number] [place] [address] 17 Jan, 2012 [facility] [address] [id number] [place] [address] 13 Jan, 2012 [facility] [address] [id number] [place] [address] 12 Jan, 2012 [facility] [address] [id number] [place] [address] Jan, [facility] [address] [id number] [place] [address] 20 Nov, 2011 [facility] [address] [id number] [place] [address] 15 Nov, 2011 [facility] [address] [id number] [place] [address] 10 Nov, 2011 [facility] [address] [id number] [place] [address] Oct, [facility] [address] [id number] [place] [address] 14 Sep, 2011 [facility] [id number] [place] [address] 14 Sep, 2011 [facility] [id number] [place] [address] Sep, [facility] [address] [id number] [place] [address] Aug, [facility] [id number] [place] [address] Aug, [facility] [id number] [place] [address] Jul, [facility] [address] [id number] [place] [address] Jul, [facility] [address] [id number] [place] [address] Jun, [facility] [id number] [place] [address] 17 Nov, 2009 [facility] [address] [id number] [place] [address] Aug, [facility] [id number] [place] [address] Mar, [facility] [address] [facility] [id number] [place] [address] Nov, IMMUNIZATIONS No Known Immunizations SOCIAL HISTORY Never Assessed REASON FOR VISIT PLAN OF CARE VITAL SIGNS MEDICATIONS Unknown Medications RESULTS No Results PROCEDURES Procedure Date Ordered Result Body Site THER/PROPH/DIAG INJ, SC/IM Dec 12, 2013 INJ METHYLPRDNISLN SODIM TO 125 MG Dec 12, 2013 INSTRUCTIONS MEDICATIONS ADMINISTERED No Known Medications [...]
[2020-03-15] MEDS ORDERED: LACTATED RINGERS 1,000 ML IV ONE (07:06)
--- OUTSIDE RECORDS SUMMARY | 2020-03-15 07:06 | XMS REPORT ---
Author Author Marleny DIAZ Organization [facility] Address [address] [place] [address] Care Team Providers Care Saddle Maker Name Role Phone LIVE DIAZ Unavailable PROBLEMS Type Condition ICD9-CM Code OYR71-SR Code Onset Dates Condition S tatus SNOMED Code Problem Hx of fracture of left hip Z87.81 Act west 142046101 Problem Family history of colon cancer Z80.0 Active 178264120 Problem Chronic obstructive pulmonary disease, unspecified COPD ty pe J44.9 Active 94129036 Problem Major depressive disorder, recurrent episode, moderate deg ree F33.1 Active 26069390 Problem Hyperlipidemia, unspecified hyperlipidemia type E7 8.5 Active 75152766 Problem Other chronic pain G89.29 Active 8 0228522 Problem Colon cancer screening Z12.11 Active 417037023 Problem Essential tremor G25.0 Active 609 645928 Problem Mitral valve prolapse I34.1 Active 569418764 Problem Back pain with history of spinal surgery M54.9 Active 635408687 Problem Morbid obesity due to excess calories E66.01 Active 426187487 Problem Osteopenia of multiple sites M85.89 A ctive [id number] ALLERGIES No Information ENCOUNTERS Encounter Location Date Diagnosis [facility] [address] [id number] [place] [address] 09 Jan, 2020 [facility] [address] [address] 18 Dec, 2019 [facility] [address] [id number] [place] [address] 05 Dec, 2019 [facility] [address] [facility] [address] 05 Dec, 2019 [facility] [address] [id number] [place] [address] 04 Dec, 2019 Major depressive disorder, recurrent epi sode, moderate degree F33.1 [facility] [id number] [address] Nov, Major depressive disorder, recurrent episode, moderate degree F33.1 ; Morbid obesity due to excess calories E66.01 ; Hyperlipidemia, unspecified hyperlipidemia type E78.5 ; Colon cancer screening Z12.11 and Hormone replacement therapy (postmenopausal) Z79.890 [facility] [address] [id number] [address] Nov, [facility] [address] [address] Nov, Lumbar radiculopathy, acute M54.16 [facility] [address] [address] Nov, Other chronic pain G89.29 [facility] [address] [address] Nov, [facility] [address] [address] Nov, Hyperlipidemia, unspecified hyperlipidemia type E78.5 [place] [address] [address] Nov, [facility] [address] [address] Oct, Major depressive disorder, recurrent epi sode, moderate degree F33.1 [facility] [address] [address] Oct, Lumbar radiculopathy, acute M54.16 [facility] [address] [address] Oct, [facility] [address] [address] Oct, Back pain with history of spinal surgery M54.9 ; Major depressive disorder, recurrent episode, moderate degree F33.1 ; Osteopenia of multiple sites M85.89 ; Easy bruising R23.8 ; Morbid obesity due to excess calories E66.01 ; Sore throat J02.9 ; Cough R05 ; Therapeutic drug monitoring Z51.81 and Severe back pain M54.9 [place] [address] [address] Oct, Major depressive disorder, recurrent epi sode, moderate degree F33.1 [place] [address] [address] Sep, Lumbar radiculopathy, acute M54.16 [place] [address] [address] Sep, [place] [address] [address] Sep, Laryngitis J04.0 ; Asymptomatic menopaus al state Z78.0 and Hx of fracture of left hip Z87.81 [place] [address] [address] Sep, Major depressive disorder, recurrent epi sode, moderate degree F33.1 [place] [address] [address] Sep, [place] [address] [address] Aug, [place] [address] [address] Aug, [place] [address] [address] Aug, Family history of colon cancer Z80.0 ; C hronic obstructive pulmonary disease, unspecified COPD type J44.9 ; Essential tremor G25.0 ; Mitral valve prolapse I34.1 ; Other chronic pain G89.29 ; Hx of fracture of left hip Z87.81 and Encounter for immunization Z23 [place] [address] [address] Aug, Major depressive disorder, recurrent epi sode, moderate degree F33.1 [address] [place] [address] Aug, Muscle spasm M62.838 ; Sever e back pain M54.9 and Hx of spinal surgery Z98.890 [address] [place] [address] Aug, [facility] [address] [facility] [id number] [place] [address] Aug, Sore throat J02.9 ; Cough R05 and Viral upper respiratory illness J06.9 [facility] [address] [id number] [place] [address] Aug, Major depressive disorder, recurrent epi sode, moderate degree F33.1 [address] [place] [address] Jul, [address] [place] [address] Jul, [address] [place] [address] Jul, [address] [place] [address] Jul, [facility] [id number] [place] [address] Jul, Major depressive disorder, recurrent epi sode, moderate degree F33.1 [facility] [address] [id number] [place] [address] Jul, [address] [place] [address] Jul, [facility] [address] [id number] [place] [address] Jul, Encounter for immunization Z23 [address] [place] [address] Jul, Restrictive airway disease J 98.4 [address] [place] [address] Jul, Screening for breast cancer Z12.39 [place] [address] [id number] [place] [address] Jul, Major depressive disorder, recurrent epi sode, moderate degree F33.1 [address] [place] [address] Jun, [address] [place] [address] Jun, [address] [place] [address] Jun, Shortness of breath R06.02 [address] [place] [address] Jun, Shortness of breath R06.02 [address] [place] [address] Jun, Shortness of breath R06.02 a nd Restrictive lung disease J98.4 [facility] [id number] [place] [address] Jun, Major depressive disorder, recurrent epi sode, moderate degree F33.1 [address] [place] [address] Jun, [facility] [id number] [place] [address] 18 Jun, 2019 History of tobacco use Z87.891 ; Screeni ng for breast cancer Z12.39 and Trigger point M79.10 [address] [place] [address] 11 Jun, 2019 [place] [address] [place] [address] Jun, Major depressive disorder, r ecurrent episode, moderate degree F33.1 ; Trigger point M79.10 ; History of tobacco use Z87.891 and Screening for breast cancer Z12.39 [facility] [id number] [place] [address] Jun, Major depressive disorder, recurrent epi sode, moderate degree F33.[address] [address] [id number] [place] [address] May, Major depressive disorder, recurrent epi sode, moderate degree F33.1 [facility] [place] [address] [place] [address] May, Essential tremor G25.0 ; Can dida rash of groin B37.89 and History of hypertension Z86.79 [facility] [place] [address] [place] [address] May, [facility] [place] [address] [place] [address] May, [facility] [address] [id number] [place] [address] May, Major depressive disorder, recurrent epi sode, moderate degree F33.1 [facility] [place] [address] [place] [address] Apr, [facility] [place] [address] [id number] [place] [address] Apr, [facility] [address] [place] [address] Mar, [facility] [address] [place] [address] Mar, [facility] [place] [address] [place] [address] Mar, [facility] [address] [place] [address] Mar, [facility] [place] [address] [place] [address] Mar, [facility] [place] [address] [id number] [place] [address] Mar, Spinal stenosis of lumbar region without neurogenic claudication M48.061 [facility] [place] [address] [id number] [place] [address] Mar, Therapeutic drug monitoring Z51.81 [facility] [place] [address] [place] [address] February, Therapeutic drug monitoring Z51.81 [facility] [place] [address] [place] [address] Jan, [facility] [place] [address] [place] [address] Jan, [facility] [place] [address] [place] [address] Jan, [facility] [place] [address] [place] [address] Dec, [facility] [place] [address] [place] [address] Dec, [facility] [place] [address] [place] [address] Dec, [facility] [place] [address] [place] [address] Nov, [facility] [place] [address] [place] [address] Nov, [facility] [id number] [place] [id number] Sep, Dental examination Z01.20 [facility] [id number] [place] [id number] Jun, Dental examination V72.2 [facility] [id number] [place] [address] Jan, [facility] [id number] [place] [address] Jan, [facility] [id number] [place] [address] Oct, [facility] [id number] [place] [address] Oct, [facility] [address] [id number] [facility] [place] [address] Jul, [facility] [address] [facility] [id number] [place] [address] Jul, [facility] [address] [facility] [id number] [place] [address] Jun, 2013 [facility] [address] [facility] [id number] [place] [address] Jun, 2013 [facility] [address] [facility] [id number] [place] [address] May, [facility] [address] [facility] [id number] [place] [address] May, [facility] [address] [id number] [place] [address] May, [facility] [address] [id number] [place] [address] May, 2013 [facility] [address] [id number] [place] [address] May, [facility] [address] [id number] [place] [address] May, [facility] [address] [id number] [place] [address] May, [facility] [address] [id number] [place] [address] May, [facility] [address] [id number] [place] [address] Apr, [facility] [address] [facility] [id number] [place] [address] Apr, [facility] [address] [id number] [place] [address] Apr, [facility] [address] [id number] [place] [address] Apr, 2013 [facility] [address] [id number] [place] [address] Apr, 2013 [facility] [address] [facility] [id number] [place] [address] 16 Apr, 2013 [facility] [address] [facility] [id number] [place] [address] Apr, 2013 [facility] [address] [facility] [id number] [place] [address] 15 Apr, 2013 [facility] [address] [id number] [place] [address] Apr, 2013 [facility] [address] [facility] [id number] [place] [address] Apr, 2013 [facility] [address] [id number] [place] [address] Apr, 2013 [facility] [address] [id number] [place] [address] Apr, 2013 [facility] [address] [id number] [place] [address] Apr, 2013 [facility] [address] [id number] [place] [address] Apr, 2013 [facility] [address] [id number] [place] [address] Apr, [facility] [address] [id number] [place] [address] Apr, 2013 [facility] [address] [id number] [place] [address] Apr, 2013 [facility] [address] [id number] [place] [address] Mar, [facility] [address] [facility] [id number] [place] [address] Mar, [facility] [address] [id number] [place] [address] Mar, [facility] [address] [id number] [place] [address] Mar, [facility] [address] [id number] [place] [address] Mar, [facility] [address] [facility] [id number] [facility] [place] [address] Mar, [facility] [address] [facility] [id number] [facility] [place] [address] Mar, [facility] [address] [id number] [facility] [place] [address] Mar, [facility] [address] [id number] [facility] [place] [address] Mar, [facility] [address] [facility] [id number] [facility] [place] [address] Mar, [facility] [address] [id number] [facility] [place] [address] Mar, [facility] [address] [id number] [facility] [place] [address] Mar, [facility] [address] [id number] [facility] [place] [address] February, [facility] [address] [id number] [facility] [place] [address] February, [facility] [address] [id number] [place] [address] February, [facility] [address] [id number] [place] [address] February, [facility] [address] [id number] [place] [address] February, [facility] [address] [id number] [facility] [place] [address] February, [facility] [address] [id number] [place] [address] February, [facility] [address] [id number] [place] [address] February, [facility] [address] [id number] [facility] [place] [address] February, [facility] [address] [id number] [place] [address] February, [facility] [address] [facility] [id number] [place] [address] February, [facility] [address] [id number] [place] [address] February, [facility] [address] [id number] [place] [address] Jan, [facility] [address] [id number] [place] [address] Jan, [facility] [address] [id number] [place] [address] Jan, [facility] [address] [id number] [place] [address] Jan, [facility] [address] [id number] [place] [address] Jan, [facility] [address] [id number] [place] [address] Jan, [facility] [address] [id number] [place] [address] Dec, [facility] [address] [id number] [place] [address] Dec, [facility] [address] [id number] [place] [address] Dec, [facility] [address] [id number] [place] [address] Dec, [facility] [address] [id number] [place] [address] Dec, [facility] [address] [id number] [place] [address] Dec, [facility] [address] [id number] [place] [address] Nov, [facility] [address] [id number] [place] [address] Nov, [facility] [address] [id number] [place] [address] Nov, [facility] [address] [id number] [place] [address] Nov, [facility] [address] [id number] [place] [address] Oct, [facility] [address] [id number] [place] [address] Oct, [facility] [address] [id number] [place] [address] Oct, [facility] [address] [id number] [place] [address] Oct, [facility] [address] [id number] [place] [address] Oct, [facility] [address] [id number] [place] [address] Oct, [facility] [address] [id number] [place] [address] Oct, [facility] [address] [id number] [place] [address] Oct, [facility] [address] [id number] [place] [address] Oct, [facility] [address] [id number] [place] [address] Sep, [facility] [address] [id number] [place] [address] Sep, [facility] [address] [id number] [place] [address] Sep, [facility] [address] [id number] [place] [address] Sep, [facility] [address] [id number] [place] [address] Sep, [facility] [address] [id number] [place] [address] Sep, [facility] [address] [facility] [id number] [place] [address] Sep, [facility] [address] [id number] [place] [address] Aug, [facility] [address] [id number] [place] [address] Aug, [facility] [address] [id number] [place] [address] Jul, [facility] [address] [id number] [place] [address] 28 Jul, 2013 [facility] [address] [id number] [place] [address] 14 Jul, 2013 [facility] [address] [id number] [place] [address] 14 Jul, 2013 [facility] [address] [id number] [place] [address] Jul, [facility] [address] [id number] [place] [address] Jul, [facility] [address] [id number] [place] [address] 25 Jun, 2013 [facility] [address] [id number] [place] [address] 16 Jun, 2013 [facility] [address] [id number] [place] [address] 13 Jun, 2013 [facility] [address] [id number] [place] [address] 30 May, 2013 [facility] [address] [id number] [place] [address] May, [facility] [address] [id number] [place] [address] Apr, [facility] [address] [id number] [place] [address] Apr, [facility] [address] [id number] [place] [address] Apr, [facility] [address] [id number] [place] [address] Mar, [facility] [address] [id number] [place] [address] Mar, [facility] [address] [id number] [place] [address] February, [facility] [address] [id number] [place] [address] February, [facility] [address] [id number] [place] [address] Jan, [facility] [address] [id number] [place] [address] Jan, [facility] [id number] [place] [address] Dec, [facility] [id number] [place] [address] Nov, [facility] [address] [id number] [place] [address] Nov, [facility] [address] [id number] [place] [address] Nov, [facility] [address] [id number] [place] [address] Oct, [facility] [address] [id number] [place] [address] Aug, [facility] [address] [id number] [place] [address] Aug, [facility] [id number] [place] [address] Aug, [facility] [address] [id number] [place] [address] Aug, [facility] [id number] [place] [address] 26 Jun, 2012 [facility] [address] [id number] [place] [address] 10 Jun, 2012 [facility] [address] [id number] [facility] [place] [address] 08 Jun, 2012 [facility] [address] [id number] [place] [address] 07 Jun, 2012 [facility] [address] [id number] [place] [address] 05 Jun, 2012 [facility] [address] [facility] [id number] [facility] [place] [address] 31 May, 2012 [facility] [address] [id number] [place] [address] 14 May, 2012 [facility] [address] [id number] [place] [address] May, [facility] [address] [id number] [place] [address] May, [facility] [address] [id number] [place] [address] Mar, [facility] [address] [id number] [place] [address] Mar, [facility] [address] [id number] [place] [address] February, [facility] [address] [id number] [place] [address] February, [facility] [address] [id number] [place] [address] 25 Jan, 2012 [facility] [address] [id number] [place] [address] 17 Jan, 2012 [facility] [address] [id number] [place] [address] 13 Jan, 2012 [facility] [address] [id number] [place] [address] 12 Jan, 2012 [facility] [address] [id number] [place] [address] 11 Jan, 2012 [facility] [address] [id number] [place] [address] 20 Nov, 2011 [facility] [address] [id number] [place] [address] 15 Nov, 2011 [facility] [address] [id number] [place] [address] Nov, [facility] [address] [id number] [place] [address] Oct, [facility] [address] [id number] [place] [address] Sep, [facility] [address] [id number] [place] [address] 14 Sep, 2011 [facility] [facility] [address] [id number] [place] [address] Sep, [facility] [address] [id number] [place] [address] Aug, [facility] [address] [id number] [place] [address] Aug, [facility] [address] [id number] [place] [address] Jul, [facility] [address] [id number] [place] [address] Jul, [facility] [address] [id number] [place] [address] Jun, [facility] [address] [id number] [place] [address] 17 Nov, 2009 [facility] [address] [id number] [place] [address] Aug, [facility] [address] [id number] [place] [address] Mar, [facility] [address] [id number] [place] [address] Nov, IMMUNIZATIONS No Known Immunizations SOCIAL HISTORY Never Assessed REASON FOR VISIT PLAN OF CARE VITAL SIGNS Height 65 in 2013-12-16 Weight 238.5 lbs 2013-12-16 Temperature 98.6 degrees Fahrenheit 2013-12-16 Heart Rate 74 bpm 2013-12-16 Respiratory Rate 16 2013-12-16 Blood pressure systolic 128 mmHg 2013-12-16 Blood pressure diastolic 80 mmHg 2013-12-16 MEDICATIONS Unknown Medications RESULTS No Results PROCEDURES Procedure Date Ordered Result Body Site THER/PROPH/DIAG INJ, SC/IM Dec 16, 2013 INJ METHYLPRDNISOLONE ACTAT 80 MG Dec 16, 2013 INSTRUCTIONS MEDICATIONS ADMINISTERED No Known Medications [...]
--- OUTSIDE RECORDS SUMMARY | 2020-03-15 07:06 | XMS REPORT ---
Author Author Marleny DIAZ Organization [facility] Address [address] [place] [address] Care Team Providers Care Manager Clinical Name Role Phone LIVE DIAZ Unavailable PROBLEMS Type Condition ICD9-CM Code EUN15-ZJ Code Onset Dates Condition S tatus SNOMED Code Problem Mitral valve prolapse I34.1 Active 743703354 Problem Other chronic pain G89.29 Active 8 9088116 Problem Hx of fracture of left hip Z87.81 Act west 667927450 Problem Osteopenia of multiple sites M85.89 A ctive 238624144 Problem Essential tremor G25.0 Active 609 619390 Problem Hyperlipidemia, unspecified hyperlipidemia type E7 8.5 Active 68035316 Problem Major depressive disorder, recurrent episode, moderate deg ree F33.1 Active 22752377 Problem Family history of colon cancer Z80.0 Active 432562443 Problem Chronic obstructive pulmonary disease, unspecified COPD ty pe J44.9 Active 30088532 Problem Back pain with history of spinal surgery M54.9 Active 686016489 Problem Morbid obesity due to excess calories E66.01 Active 221255368 ALLERGIES No Information ENCOUNTERS Encounter Location Date Diagnosis [facility] [address] [address] Dec, [facility] [address] [address] 05 Dec, 2019 [facility] [address] [address] Dec, [facility] [address] [id number] [address] Nov, [facility] [address] [id number] [place] [address] 13 Nov, 2019 Hyperlipidemia, unspecified hyperlipidemia type E78.5 [facility] [address] [address] Nov, [place] [address] [address] Oct, Major depressive disorder, recurrent epi sode, moderate degree F33.1 [place] [address] [address] Oct, Lumbar radiculopathy, acute M54.16 [place] [address] [address] 17 Oct, 2019 [place] [address] [address] 15 Oct, 2019 Back pain with history of spinal surgery M54.9 ; Major depressive disorder, recurrent episode, moderate degree F33.1 ; Osteopenia of multiple sites M85.89 ; Easy bruising R23.8 ; Morbid obesity due to excess calories E66.01 ; Sore throat J02.9 ; Cough R05 ; Therapeutic drug monitoring Z51.81 and Severe back pain M54.9 [place] [address] [address] Oct, Major depressive disorder, recurrent epi sode, moderate degree F33.1 [place] [address] [address] Sep, Lumbar radiculopathy, acute M54.16 [place] [address] [address] Sep, [place] [address] [address] Sep, Laryngitis J04.0 ; Asymptomatic menopaus al state Z78.0 and Hx of fracture of left hip Z87.81 [place] [address] [address] Sep, Major depressive disorder, recurrent epi sode, moderate degree F33.1 [place] [address] [address] Sep, [id number] [place] [address] Aug, [facility] [id number] [place] [address] Aug, [facility] [id number] [place] [address] Aug, Family history of colon cancer Z80.0 ; C hronic obstructive pulmonary disease, unspecified COPD type J44.9 ; Essential tremor G25.0 ; Mitral valve prolapse I34.1 ; Other chronic pain G89.29 ; Hx of fracture of left hip Z87.81 and Encounter for immunization Z23 [place] [id number] [place] [address] Aug, Major depressive disorder, recurrent epi sode, moderate degree F33.1 [address] [place] [address] Aug, Muscle spasm M62.838 ; Sever e back pain M54.9 and Hx of spinal surgery Z98.890 [address] [place] [address] Aug, [facility] [address] [id number] [place] [address] Aug, Sore throat J02.9 ; Cough R05 and Viral upper respiratory illness J06.9 [place] [address] [id number] [place] [address] Aug, Major depressive disorder, recurrent epi sode, moderate degree F33.1 [address] [place] [address] Jul, [address] [place] [address] Jul, [address] [place] [address] Jul, [address] [place] [address] Jul, [facility] [address] [id number] [place] [address] Jul, Major depressive disorder, recurrent epi sode, moderate degree F33.1 [facility] [address] [id number] [place] [address] Jul, [address] [place] [address] Jul, [facility] [address] [id number] [place] [address] Jul, Encounter for immunization Z23 [address] [place] [address] Jul, Restrictive airway disease J 98.4 [address] [place] [address] Jul, Screening for breast cancer Z12.39 [place] [address] [id number] [place] [address] Jul, Major depressive disorder, recurrent epi sode, moderate degree F33.[address] [place] [address] Jun, [address] [place] [address] Jun, [address] [place] [address] Jun, Shortness of breath R06.02 [address] [place] [address] Jun, Shortness of breath R06.[address] [place] [address] Jun, Shortness of breath R06.02 a nd Restrictive lung disease J98.4 [facility] [address] [id number] [place] [address] Jun, Major depressive disorder, recurrent epi sode, moderate degree F33.[address] [place] [address] Jun, [facility] [address] [address] 18 Jun, 2019 History of tobacco use Z87.891 ; Screeni ng for breast cancer Z12.39 and Trigger point M79.10 [address] [place] [address] Jun, [address] [place] [address] Jun, Major depressive disorder, r ecurrent episode, moderate degree F33.1 ; Trigger point M79.10 ; History of tobacco use Z87.891 and Screening for breast cancer Z12.39 [place] [address] [address] Jun, Major depressive disorder, recurrent epi sode, moderate degree F33.1 [place] [address] [address] May, Major depressive disorder, recurrent epi sode, moderate degree F33.1 [place] [address] [place] [address] May, Essential tremor G25.0 ; Can dida rash of groin B37.89 and History of hypertension Z86.79 [address] [place] [address] May, [place] [address] [address] [place] [address] May, [place] [address] [address] May, Major depressive disorder, recurrent epi sode, moderate degree F33.1 [address] [place] [address] Apr, [facility] [address] [id number] [place] [address] Apr, [facility] [address] [place] [address] Mar, [facility] [place] [address] [place] [address] Mar, [facility] [place] [address] [place] [address] Mar, [facility] [place] [address] [place] [address] Mar, [facility] [place] [address] [place] [address] Mar, [facility] [place] [address] [facility] [id number] [place] [address] Mar, Spinal stenosis of lumbar region without neurogenic claudication M48.061 [facility] [place] [address] [id number] [place] [address] Mar, Therapeutic drug monitoring Z51.81 [facility] [place] [address] [place] [address] February, Therapeutic drug monitoring Z51.81 [facility] [place] [address] [place] [address] Jan, [facility] [address] [place] [address] Jan, [facility] [place] [address] [place] [address] Jan, [facility] [place] [address] [place] [address] Dec, [facility] [place] [address] [place] [address] Dec, [facility] [place] [address] [place] [address] Dec, [facility] [place] [address] [place] [address] Nov, [facility] [place] [address] [place] [address] 15 Nov, 2018 [facility] [address] [id number] [place] [address] Sep, Dental examination Z01.20 [facility] [address] [id number] [place] [id number] 10 Jun, 2015 Dental examination V72.2 [facility] [id number] [place] [address] 14 Jan, 2015 [facility] [id number] [place] [address] Jan, [facility] [id number] [place] [address] Oct, [facility] [id number] [place] [address] Oct, [facility] [id number] [place] [address] Jul, [facility] [id number] [place] [address] Jul, [facility] [id number] [place] [address] Jun, [facility] [id number] [place] [address] Jun, [facility] [id number] [place] [address] May, [facility] [id number] [place] [address] May, [facility] [id number] [place] [address] May, [facility] [id number] [place] [address] May, [facility] [id number] [place] [address] May, [facility] [id number] [place] [address] May, 2013 [facility] [address] [facility] [id number] [facility] [place] [address] May, [facility] [address] [facility] [id number] [facility] [place] [address] May, [facility] [address] [id number] [facility] [place] [address] Apr, 2013 [facility] [address] [facility] [id number] [facility] [place] [address] Apr, 2013 [facility] [address] [facility] [id number] [facility] [place] [address] Apr, 2013 [facility] [address] [facility] [id number] [facility] [place] [address] Apr, 2013 [facility] [address] [id number] [place] [address] Apr, 2013 [facility] [address] [id number] [place] [address] Apr, 2013 [facility] [address] [facility] [id number] [place] [address] Apr, 2013 [facility] [address] [id number] [place] [address] Apr, 2013 [facility] [address] [id number] [place] [address] Apr, 2013 [facility] [address] [id number] [place] [address] Apr, 2013 [facility] [address] [facility] [id number] [place] [address] Apr, 2013 [facility] [address] [facility] [id number] [place] [address] Apr, 2013 [facility] [address] [facility] [id number] [place] [address] Apr, 2013 [facility] [address] [id number] [place] [address] Apr, 2013 [facility] [address] [facility] [id number] [place] [address] Apr, [facility] [address] [facility] [id number] [place] [address] Apr, [facility] [address] [facility] [id number] [place] [address] Apr, [facility] [address] [id number] [place] [address] Mar, [facility] [address] [facility] [id number] [place] [address] Mar, [facility] [address] [facility] [id number] [place] [address] Mar, [facility] [address] [id number] [place] [address] Mar, [facility] [address] [id number] [place] [address] Mar, [facility] [address] [id number] [place] [address] Mar, [facility] [address] [id number] [place] [address] Mar, [facility] [address] [id number] [place] [address] Mar, [facility] [address] [id number] [place] [address] Mar, [facility] [address] [id number] [place] [address] Mar, [facility] [address] [facility] [id number] [place] [address] Mar, [facility] [address] [id number] [place] [address] Mar, [facility] [address] [id number] [place] [address] February, [facility] [address] [id number] [place] [address] February, [facility] [address] [id number] [place] [address] February, [facility] [address] [id number] [place] [address] February, [facility] [address] [id number] [place] [address] February, [facility] [address] [id number] [place] [address] February, [facility] [address] [id number] [place] [address] February, [facility] [address] [id number] [place] [address] February, [facility] [address] [id number] [place] [address] February, [facility] [address] [id number] [place] [address] February, [facility] [address] [id number] [place] [address] February, [facility] [address] [id number] [place] [address] February, [facility] [address] [id number] [place] [address] Jan, [facility] [address] [id number] [place] [address] Jan, [facility] [address] [id number] [place] [address] Jan, [facility] [address] [id number] [place] [address] Jan, [facility] [address] [id number] [place] [address] Jan, [facility] [address] [id number] [place] [address] Jan, [facility] [address] [id number] [place] [address] Dec, [facility] [address] [facility] [id number] [place] [address] Dec, [facility] [address] [id number] [place] [address] Dec, [facility] [address] [id number] [place] [address] Dec, [facility] [address] [id number] [place] [address] Dec, [facility] [address] [id number] [place] [address] Dec, [facility] [address] [id number] [place] [address] Nov, [facility] [address] [id number] [place] [address] Nov, [facility] [address] [id number] [place] [address] Nov, [facility] [address] [id number] [place] [address] Nov, [facility] [address] [id number] [place] [address] Oct, [facility] [address] [id number] [place] [address] Oct, [facility] [address] [id number] [place] [address] Oct, [facility] [address] [id number] [place] [address] Oct, [facility] [address] [id number] [place] [address] Oct, [facility] [address] [id number] [place] [address] Oct, [facility] [address] [id number] [place] [address] Oct, [facility] [address] [id number] [place] [address] Oct, [facility] [address] [id number] [place] [address] Oct, [facility] [address] [id number] [place] [address] Sep, [facility] [address] [id number] [place] [address] Sep, [facility] [address] [id number] [place] [address] Sep, [facility] [address] [id number] [place] [address] Sep, [facility] [address] [id number] [place] [address] 16 Sep, 2013 [facility] [address] [id number] [place] [address] Sep, [facility] [address] [id number] [place] [address] Sep, [facility] [address] [id number] [place] [address] Aug, [facility] [address] [id number] [place] [address] Aug, [facility] [address] [id number] [place] [address] 28 Jul, 2013 [facility] [address] [id number] [place] [address] 28 Jul, 2013 [facility] [address] [id number] [place] [address] 14 Jul, 2013 [facility] [address] [id number] [place] [address] 14 Jul, 2013 [facility] [address] [id number] [place] [address] 12 Jul, 2013 [facility] [address] [id number] [place] [address] Jul, [facility] [address] [id number] [place] [address] Jun, [facility] [address] [id number] [place] [address] 16 Jun, 2013 [facility] [address] [id number] [place] [address] Jun, [facility] [address] [id number] [place] [address] May, [facility] [address] [facility] [id number] [place] [address] May, [facility] [address] [id number] [place] [address] Apr, [facility] [address] [id number] [place] [address] Apr, [facility] [address] [id number] [place] [address] Apr, [facility] [address] [id number] [place] [address] Mar, [facility] [address] [id number] [place] [address] Mar, [facility] [address] [id number] [place] [address] February, [facility] [address] [id number] [place] [address] February, [facility] [address] [id number] [place] [address] Jan, [facility] [address] [id number] [place] [address] Jan, [facility] [address] [id number] [place] [address] Dec, [facility] [address] [id number] [place] [address] Nov, [facility] [address] [id number] [place] [address] Nov, [facility] [address] [id number] [place] [address] Nov, [facility] [address] [id number] [place] [address] Oct, [facility] [address] [id number] [place] [address] Aug, [facility] [address] [id number] [place] [address] Aug, [facility] [address] [id number] [place] [address] Aug, [facility] [address] [id number] [place] [address] Aug, [facility] [address] [id number] [place] [address] Jun, [facility] [address] [id number] [place] [address] 10 Jun, 2012 [facility] [address] [id number] [place] [address] 08 Jun, 2012 [facility] [address] [id number] [place] [address] Jun, [facility] [address] [id number] [place] [address] 05 Jun, 2012 [facility] [address] [id number] [place] [address] May, [facility] [address] [id number] [place] [address] 14 May, 2012 [facility] [address] [id number] [place] [address] May, [facility] [address] [id number] [place] [address] May, [facility] [address] [id number] [place] [address] Mar, [facility] [address] [id number] [place] [address] Mar, [facility] [address] [id number] [place] [address] February, [facility] [address] [id number] [place] [address] February, [facility] [address] [id number] [place] [address] Jan, [facility] [address] [id number] [place] [address] Jan, [facility] [address] [id number] [place] [address] Jan, [facility] [address] [id number] [place] [address] Jan, [facility] [address] [id number] [place] [address] Jan, [facility] [address] [id number] [place] [address] Nov, [facility] [address] [id number] [place] [address] 15 Nov, 2011 [facility] [address] [id number] [place] [address] Nov, [facility] [address] [id number] [place] [address] Oct, [facility] [address] [id number] [place] [address] Sep, [facility] [address] [id number] [place] [address] Sep, [facility] [address] [id number] [place] [address] Sep, [facility] [address] [id number] [place] [address] Aug, [facility] [address] [id number] [place] [address] Aug, [facility] [address] [id number] [place] [place] [address] Jul, [facility] [address] [id number] [place] [address] Jul, [facility] [address] [id number] [place] [address] Jun, [facility] [address] [id number] [place] [address] Nov, [facility] [address] [id number] [place] [address] Aug, [facility] [address] [id number] [place] [address] Mar, [facility] [address] [id number] [place] [address] Nov, IMMUNIZATIONS No Known Immunizations SOCIAL HISTORY Never Assessed REASON FOR VISIT PLAN OF CARE VITAL SIGNS Height 65 in 2014-02-02 Weight 237 lbs 2014-02-02 Temperature 98.4 degrees Fahrenheit 2014-02-02 Heart Rate 80 bpm 2014-02-02 Respiratory Rate 20 2014-02-02 Blood pressure systolic 130 mmHg 2014-02-02 Blood pressure diastolic 78 mmHg 2014-02-02 MEDICATIONS Unknown Medications RESULTS No Results PROCEDURES Procedure Date Ordered Result Body Site X-RAY EXAM OF HIP February 02, 2014 MRI LUMBAR SPINE W/O DYE February 02, 2014 INSTRUCTIONS MEDICATIONS ADMINISTERED No Known Medications MEDICAL (GENERAL) HISTORY Type Description Date Medical History neck pain Medical History Hypertension Medical History hyperlipidemia Medical History Nerve pain Surgical History Spinal surgery (fusion) - [place] 04/14/19 Surgical History hysterectomy - TVH/BSO; appendectomy don e at the same time Surgical History Laminectomy/discetomy 2006 Surgical History cholecystectomy Surgical History facial surgery- MRSA I&D Surgical History Back surgery 04/14/19 Hospitalization History Surgery(s) only Hospitalization History childbirth only Hospitalization History COPD 07/09/18
--- OUTSIDE RECORDS SUMMARY | 2020-03-15 07:06 | XMS REPORT ---
Author Author Marleny DIAZ Organization [facility] Address [address] [place] [address] Care Team Providers Care Waste Collector Name Role Phone LIVE DIAZ Unavailable PROBLEMS Type Condition ICD9-CM Code OIS76-LW Code Onset Dates Condition S tatus SNOMED Code Problem Essential tremor G25.0 Active 609 871516 Problem Mitral valve prolapse I34.1 Active 633567900 Problem Other chronic pain G89.29 Active 8 4536305 Problem Osteopenia of multiple sites M85.89 A ctive 282774079 Problem Major depressive disorder, recurrent episode, moderate deg ree F33.1 Active 80032129 Problem Morbid obesity due to excess calories E66.01 Active 821523972 Problem Family history of colon cancer Z80.0 Active 750875859 Problem Chronic obstructive pulmonary disease, unspecified COPD ty pe J44.9 Active 38571881 Problem Hx of fracture of left hip Z87.81 Act west 119874359 Problem Back pain with history of spinal surgery M54.9 Active [id number] ALLERGIES No Information ENCOUNTERS Encounter Location Date Diagnosis [place] [address] [address] Dec, [place] [address] [address] Dec, [facility] [address] [address] 13 Nov, 2019 [place] [address] [address] 05 Nov, 2019 [place] [address] [address] Oct, Major depressive disorder, recurrent epi sode, moderate degree F33.1 [facility] [address] [address] Oct, Lumbar radiculopathy, acute M54.16 [place] [address] [address] 17 Oct, 2019 [place] [address] [address] 15 Oct, 2019 Back pain with history of spinal surgery M54.9 ; Major depressive disorder, recurrent episode, moderate degree F33.1 ; Osteopenia of multiple sites M85.89 ; Easy bruising R23.8 ; Morbid obesity due to excess calories E66.01 ; Sore throat J02.9 ; Cough R05 ; Therapeutic drug monitoring Z51.81 and Severe back pain M54.9 [place] [address] [address] 07 Oct, 2019 Major depressive disorder, recurrent epi sode, moderate degree F33.1 [place] [address] [address] Sep, Lumbar radiculopathy, acute M54.16 [place] [address] [address] Sep, [address] [address] Sep, Laryngitis J04.0 ; Asymptomatic menopaus al state Z78.0 and Hx of fracture of left hip Z87.81 [place] [address] [address] Sep, Major depressive disorder, recurrent epi sode, moderate degree F33.1 [place] [address] [address] Sep, [place] [address] [address] Aug, [place] [address] [address] Aug, [place] [address] [address] 19 Nov, 2019 Family history of colon cancer Z80.0 ; C hronic obstructive pulmonary disease, unspecified COPD type J44.9 ; Essential tremor G25.0 ; Mitral valve prolapse I34.1 ; Other chronic pain G89.29 ; Hx of fracture of left hip Z87.81 and Encounter for immunization Z23 [facility] [address] [id number] [place] [address] Aug, Major depressive disorder, recurrent epi sode, moderate degree F33.1 [address] [place] [address] Aug, Muscle spasm M62.838 ; Sever e back pain M54.9 and Hx of spinal surgery Z98.890 [address] [place] [address] Aug, [facility] [address] [facility] [id number] [place] [address] Aug, Sore throat J02.9 ; Cough R05 and Viral upper respiratory illness J06.9 [place] [address] [id number] [place] [address] Aug, Major depressive disorder, recurrent epi sode, moderate degree F33.1 [address] [place] [address] Jul, [place] [address] [place] [address] Jul, [address] [place] [address] Jul, [address] [place] [address] Jul, [facility] [address] [place] [id number] [place] [address] Jul, Major depressive disorder, recurrent epi sode, moderate degree F33.1 [facility] [address] [place] [id number] [place] [address] Jul, [address] [place] [address] Jul, [facility] [address] [id number] [place] [address] Jul, Encounter for immunization Z23 [address] [place] [address] Jul, Restrictive airway disease J 98.4 [place] [address] [place] [address] Jul, Screening for breast cancer Z12.39 [place] [address] [place] [id number] [place] [address] Jul, Major depressive disorder, recurrent epi sode, moderate degree F33.1 [address] [place] [address] Jun, [place] [address] [place] [address] Jun, [address] [place] [address] Jun, Shortness of breath R06.02 [place] [address] [place] [address] Jun, Shortness of breath R06.02 [place] [address] [place] [address] Jun, Shortness of breath R06.02 a nd Restrictive lung disease J98.4 [facility] [address] [id number] [place] [address] Jun, Major depressive disorder, recurrent epi sode, moderate degree F33.1 [address] [place] [address] Jun, [facility] [address] [place] [id number] [place] [address] Jun, History of tobacco use Z87.891 ; Screeni ng for breast cancer Z12.39 and Trigger point M79.10 [facility] [address] [place] [address] Jun, [address] [place] [address] Jun, Major depressive disorder, r ecurrent episode, moderate degree F33.1 ; Trigger point M79.10 ; History of tobacco use Z87.891 and Screening for breast cancer Z12.39 [place] [address] [place] [id number] [place] [address] Jun, Major depressive disorder, recurrent epi sode, moderate degree F33.1 [place] [address] [place] [id number] [place] [address] May, Major depressive disorder, recurrent epi sode, moderate degree F33.1 [address] [place] [address] May, Essential tremor G25.0 ; Can dida rash of groin B37.89 and History of hypertension Z86.79 [facility] [address] [place] [address] May, [address] [place] [address] May, [facility] [address] [id number] [place] [address] May, Major depressive disorder, recurrent epi sode, moderate degree F33.[address] [place] [address] Apr, [facility] [place] [address] [facility] [id number] [place] [address] Apr, [facility] [address] [place] [address] Mar, [facility] [address] [place] [address] Mar, [address] [place] [address] Mar, [facility] [place] [facility] [address] [place] [address] Mar, [facility] [place] [facility] [address] [place] [address] Mar, [facility] [place] [address] [facility] [id number] [place] [address] Mar, Spinal stenosis of lumbar region without neurogenic claudication M48.061 [facility] [place] [address] [facility] [id number] [place] [address] Mar, Therapeutic drug monitoring Z51.81 [facility] [place] [facility] [address] [place] [address] February, Therapeutic drug monitoring Z51.81 [facility] [place] [facility] [address] [place] [address] Jan, [facility] [place] [facility] [address] [place] [address] Jan, [facility] [address] [place] [address] Jan, [facility] [address] [place] [address] Dec, [facility] [place] [facility] [address] [place] [address] Dec, [facility] [place] [facility] [address] [place] [address] Dec, [facility] [place] [facility] [address] [place] [address] Nov, [facility] [facility] [address] [place] [address] Nov, [facility] [place] [facility] [address] [id number] [place] [id number] Sep, Dental examination Z01.20 [facility] [address] [id number] [place] [id number] Jun, Dental examination V72.2 [facility] [place] [facility] [address] [id number] [place] [address] 14 Jan, 2015 [facility] [place] [facility] [address] [id number] [place] [address] Jan, [facility] [place] [facility] [address] [id number] [place] [address] Oct, [facility] [place] [facility] [address] [id number] [place] [address] Oct, [facility] [place] [facility] [address] [id number] [place] [address] Jul, [facility] [place] [facility] [address] [id number] [place] [address] Jul, [facility] [place] [facility] [address] [id number] [place] [address] Jun, [facility] [place] [facility] [address] [id number] [place] [address] Jun, [facility] [place] [facility] [address] [id number] [place] [address] May, [facility] [place] [facility] [address] [id number] [place] [address] May, [facility] [place] [facility] [address] [id number] [place] [address] May, [facility] [place] [facility] [address] [id number] [place] [address] May, [facility] [place] [facility] [address] [id number] [place] [address] May, [facility] [place] [facility] [address] [id number] [place] [address] May, [facility] [place] [facility] [address] [id number] [place] [address] May, [facility] [place] [facility] [address] [id number] [place] [address] May, [facility] [place] [facility] [address] [id number] [facility] [place] [address] 17 Apr, 2013 [facility] [place] [facility] [address] [id number] [facility] [facility] [place] [address] 17 Apr, 2013 [facility] [place] [facility] [address] [facility] [id number] [facility] [facility] [place] [address] Apr, 2013 [facility] [place] [facility] [address] [facility] [id number] [facility] [facility] [place] [address] 16 Apr, 2013 [facility] [place] [facility] [address] [facility] [id number] [facility] [facility] [place] [address] Apr, 2013 [facility] [place] [facility] [address] [facility] [id number] [facility] [facility] [place] [address] Apr, 2013 [facility] [place] [facility] [address] [facility] [id number] [place] [address] 15 Apr, 2013 [facility] [place] [facility] [address] [id number] [place] [address] 15 Apr, 2013 [facility] [place] [facility] [address] [id number] [place] [address] Apr, 2013 [facility] [place] [facility] [address] [facility] [id number] [place] [address] Apr, 2013 [facility] [place] [facility] [address] [id number] [place] [address] Apr, 2013 [facility] [place] [facility] [address] [id number] [place] [address] 05 Apr, 2013 [facility] [place] [facility] [address] [id number] [place] [address] Apr, 2013 [facility] [place] [facility] [address] [facility] [id number] [place] [address] Apr, 2013 [facility] [place] [facility] [address] [id number] [place] [address] Apr, 2013 [facility] [place] [facility] [address] [facility] [id number] [place] [address] Apr, 2013 [facility] [place] [facility] [address] [id number] [place] [address] Apr, 2013 [facility] [place] [facility] [address] [id number] [place] [address] Mar, [facility] [place] [facility] [address] [id number] [place] [address] Mar, [facility] [place] [facility] [address] [id number] [place] [address] Mar, [facility] [place] [facility] [address] [id number] [place] [address] Mar, [facility] [place] [facility] [address] [facility] [id number] [place] [address] Mar, [facility] [place] [facility] [address] [id number] [place] [address] Mar, [facility] [place] [facility] [address] [id number] [place] [address] Mar, [facility] [place] [facility] [address] [id number] [place] [address] Mar, [facility] [place] [facility] [address] [id number] [place] [address] Mar, [facility] [place] [facility] [address] [id number] [place] [address] Mar, [facility] [place] [facility] [address] [id number] [place] [address] Mar, [facility] [place] [facility] [address] [id number] [place] [address] Mar, [facility] [place] [facility] [address] [id number] [place] [address] February, [facility] [place] [facility] [address] [facility] [id number] [place] [address] February, [facility] [place] [facility] [address] [id number] [place] [address] February, [facility] [place] [facility] [address] [id number] [place] [address] February, [facility] [place] [facility] [address] [id number] [place] [address] February, [facility] [place] [facility] [address] [id number] [facility] [facility] [place] [address] February, [facility] [place] [facility] [address] [facility] [id number] [place] [address] February, [facility] [place] [facility] [address] [id number] [place] [address] February, [facility] [place] [facility] [address] [id number] [place] [address] February, [facility] [place] [facility] [address] [facility] [id number] [facility] [facility] [place] [address] February, [facility] [place] [facility] [address] [id number] [facility] [facility] [place] [address] February, [facility] [place] [facility] [address] [id number] [place] [address] February, [facility] [place] [facility] [address] [id number] [facility] [facility] [place] [address] Jan, [facility] [place] [facility] [address] [id number] [facility] [facility] [place] [address] Jan, [facility] [place] [facility] [address] [id number] [facility] [facility] [place] [address] Jan, [facility] [place] [facility] [address] [id number] [place] [address] Jan, [facility] [place] [facility] [address] [id number] [place] [address] Jan, [facility] [place] [facility] [address] [id number] [facility] [facility] [place] [address] Jan, [facility] [place] [facility] [address] [id number] [place] [address] Dec, [facility] [place] [facility] [address] [id number] [place] [address] Dec, [facility] [place] [facility] [address] [id number] [place] [address] Dec, [facility] [place] [facility] [address] [id number] [place] [address] Dec, [facility] [place] [facility] [address] [facility] [id number] [place] [address] Dec, [facility] [place] [facility] [address] [id number] [place] [address] Dec, [facility] [place] [facility] [address] [id number] [place] [address] Nov, [facility] [place] [facility] [address] [id number] [place] [address] Nov, [facility] [place] [facility] [address] [id number] [place] [address] Nov, [facility] [place] [facility] [address] [id number] [place] [address] Nov, [facility] [place] [facility] [address] [id number] [place] [address] Oct, [facility] [place] [facility] [address] [id number] [place] [address] Oct, [facility] [place] [facility] [address] [id number] [place] [address] Oct, [facility] [place] [facility] [address] [id number] [place] [address] Oct, [facility] [place] [facility] [address] [id number] [place] [address] Oct, [facility] [place] [facility] [address] [id number] [place] [address] Oct, [facility] [place] [facility] [address] [id number] [place] [address] Oct, [facility] [place] [facility] [address] [id number] [place] [address] Oct, [facility] [place] [facility] [address] [id number] [place] [address] Oct, [facility] [place] [facility] [address] [id number] [place] [address] Sep, [facility] [place] [facility] [address] [id number] [place] [address] 30 Sep, 2013 [facility] [place] [facility] [address] [id number] [place] [address] Sep, [facility] [place] [facility] [address] [id number] [place] [address] Sep, [facility] [place] [facility] [address] [id number] [place] [address] 16 Sep, 2013 [facility] [place] [facility] [address] [id number] [place] [address] Sep, [facility] [place] [facility] [address] [id number] [place] [address] Sep, [facility] [place] [facility] [address] [id number] [place] [address] Aug, [facility] [place] [facility] [address] [id number] [place] [address] Aug, [facility] [place] [facility] [address] [id number] [place] [address] 28 Jul, 2013 [facility] [place] [facility] [address] [id number] [place] [address] 28 Jul, 2013 [facility] [place] [facility] [address] [id number] [place] [address] 14 Jul, 2013 [facility] [place] [facility] [address] [id number] [place] [address] 14 Jul, 2013 [facility] [place] [facility] [address] [id number] [place] [address] 12 Jul, 2013 [facility] [place] [facility] [address] [id number] [place] [address] 12 Jul, 2013 [facility] [place] [facility] [address] [id number] [place] [address] 25 Jun, 2013 [facility] [place] [facility] [address] [id number] [place] [address] 16 Jun, 2013 [facility] [place] [facility] [address] [id number] [place] [address] Jun, [facility] [address] [id number] [place] [address] May, [facility] [place] [facility] [address] [id number] [place] [address] May, [facility] [place] [facility] [address] [id number] [place] [address] Apr, [facility] [place] [facility] [address] [id number] [place] [address] Apr, [facility] [place] [facility] [address] [id number] [place] [address] Apr, [facility] [place] [facility] [address] [id number] [place] [address] Mar, [facility] [place] [facility] [address] [id number] [place] [address] Mar, [facility] [place] [facility] [address] [id number] [place] [address] February, [facility] [place] [facility] [address] [id number] [place] [address] February, [facility] [place] [facility] [address] [id number] [place] [address] Jan, [facility] [place] [address] [id number] [place] [address] Jan, [facility] [address] [id number] [place] [address] Dec, [facility] [address] [id number] [place] [address] Nov, [facility] [address] [id number] [place] [address] Nov, [facility] [address] [id number] [place] [address] Nov, [facility] [address] [id number] [place] [address] Oct, [facility] [address] [id number] [place] [address] 08 Aug, 2012 [facility] [address] [id number] [place] [address] Aug, [facility] [address] [id number] [place] [address] Aug, [facility] [address] [id number] [place] [address] Aug, [facility] [address] [id number] [place] [address] Jun, [facility] [address] [id number] [place] [address] 10 Jun, 2012 [facility] [address] [id number] [place] [address] Jun, [facility] [address] [id number] [place] [address] Jun, [facility] [address] [id number] [place] [address] 05 Jun, 2012 [facility] [address] [id number] [place] [address] May, [facility] [address] [id number] [place] [address] May, [facility] [address] [id number] [place] [address] May, [facility] [address] [id number] [place] [address] May, [facility] [address] [id number] [place] [address] Mar, [facility] [address] [id number] [place] [address] Mar, [facility] [address] [id number] [place] [address] February, [facility] [address] [id number] [place] [address] February, [facility] [address] [id number] [place] [address] 25 Jan, 2012 [facility] [address] [id number] [place] [address] 17 Jan, 2012 [facility] [address] [id number] [place] [address] 13 Jan, 2012 [facility] [address] [id number] [place] [address] Jan, [facility] [address] [id number] [place] [address] Jan, [facility] [address] [id number] [place] [address] 20 Nov, 2011 [facility] [address] [id number] [place] [address] 15 Nov, 2011 [facility] [address] [id number] [place] [address] Nov, [facility] [address] [id number] [place] [address] Oct, [facility] [address] [id number] [place] [address] 14 Sep, 2011 [facility] [address] [id number] [place] [address] 14 Sep, 2011 [facility] [address] [id number] [place] [address] Sep, [facility] [address] [id number] [place] [address] Aug, [facility] [address] [id number] [place] [address] Aug, [facility] [address] [id number] [place] [address] Jul, [facility] [address] [id number] [place] [address] Jul, [facility] [address] [id number] [place] [address] Jun, [facility] [address] [id number] [place] [address] Nov, [facility] [address] [id number] [place] [address] Aug, [facility] [address] [id number] [place] [address] Mar, [facility] [address] [id number] [place] [address] Nov, IMMUNIZATIONS No Known Immunizations SOCIAL HISTORY [...]
--- OUTSIDE RECORDS SUMMARY | 2020-03-15 07:06 | XMS REPORT ---
Author Author Marleny REHMAN LOIS Organization [facility] Address [address] [place] [address] Care Team Providers Care Distilling Department Supervisor Name Role Phone LOIS REHMAN Unavailable PROBLEMS Type Condition ICD9-CM Code GEQ19-DW Code Onset Dates Condition S tatus SNOMED Code Problem Essential tremor G25.0 Active 603 999674 Problem Major depressive disorder, recurrent episode, moderate deg ree F33.1 Active 93612794 Problem Mitral valve prolapse I34.1 Active 530225730 Problem Hx of fracture of left hip Z87.81 Act west 511126607 Problem Chronic obstructive pulmonary disease, unspecified COPD ty pe J44.9 Active 47579338 Problem Morbid obesity due to excess calories E66.01 Active 996384802 Problem Osteopenia of multiple sites M85.89 A ctive 248760323 Problem Acquired absence of both cervix and uterus Z90.710 Active 023233025 Problem Family history of colon cancer Z80.0 Active 471525662 Problem Asymptomatic postprocedural ovarian failure E89.40 Active 414368374 Problem Other chronic pain G89.29 Active 8 5945118 Problem Back pain with history of spinal surgery M54.9 Active 347666590 Problem Hyperlipidemia, unspecified hyperlipidemia type E7 8.5 Active 96670853 Problem Colon cancer screening Z12.11 Active 926298031 Problem Post menopausal syndrome N95.1 Activ e [id number] ALLERGIES No Information ENCOUNTERS Encounter Location Date Diagnosis [facility] [address] [id number] [place] [address] 09 Jan, 2020 [facility] [address] [id number] [place] [address] 18 Dec, 2019 [facility] [address] [id number] [place] [address] 05 Dec, 2019 Post menopausal syndrome N95.1 and Acquired absence of both cervix and uterus Z90.710 [facility] [id number] [place] [address] Dec, Major depressive disorder, recurrent epi sode, moderate degree F33.1 [facility] [address] [address] Nov, Major depressive disorder, recurrent episode, moderate degree F33.1 ; Morbid obesity due to excess calories E66.01 ; Hyperlipidemia, unspecified hyperlipidemia type E78.5 ; Colon cancer screening Z12.11 and Hormone replacement therapy (postmenopausal) Z79.890 [facility] [address] [address] Nov, [facility] [address] [address] Nov, Lumbar radiculopathy, acute M54.16 [facility] [address] [address] Nov, Other chronic pain G89.29 [facility] [address] [address] Nov, [facility] [address] [address] Nov, Hyperlipidemia, unspecified hyperlipidemia type E78.5 [place] [address] [address] Nov, [place] [address] [address] Oct, Major depressive disorder, recurrent epi sode, moderate degree F33.1 [place] [address] [address] Oct, Lumbar radiculopathy, acute M54.16 [place] [address] [address] 17 Oct, 2019 [place] [address] [address] 15 Oct, 2019 Back pain with history of spinal surgery M54.9 ; Major depressive disorder, recurrent episode, moderate degree F33.1 ; Osteopenia of multiple sites M85.89 ; Easy bruising R23.8 ; Morbid obesity due to excess calories E66.01 ; Sore throat J02.9 ; Cough R05 ; Therapeutic drug monitoring Z51.81 and Severe back pain M54.9 [place] [address] [address] Oct, Major depressive disorder, recurrent epi sode, moderate degree F33.1 [place] [address] [address] Sep, Lumbar radiculopathy, acute M54.16 [place] [address] [address] Sep, [address] [address] Sep, Laryngitis J04.0 ; Asymptomatic menopaus al state Z78.0 and Hx of fracture of left hip Z87.81 [place] [address] [address] Sep, Major depressive disorder, recurrent epi sode, moderate degree F33.1 [place] [address] [address] Sep, [place] [address] [address] Aug, [place] [address] [address] Aug, [address] [address] Aug, Family history of colon cancer Z80.0 ; C hronic obstructive pulmonary disease, unspecified COPD type J44.9 ; Essential tremor G25.0 ; Mitral valve prolapse I34.1 ; Other chronic pain G89.29 ; Hx of fracture of left hip Z87.81 and Encounter for immunization Z23 [address] [address] Aug, Major depressive disorder, recurrent epi sode, moderate degree F33.[address] [place] [address] Aug, Muscle spasm M62.838 ; Sever e back pain M54.9 and Hx of spinal surgery Z98.[address] [place] [address] Aug, [facility] [address] [facility] [id number] [place] [address] Aug, Sore throat J02.9 ; Cough R05 and Viral upper respiratory illness J06.9 [place] [id number] [place] [address] Aug, Major depressive disorder, recurrent epi sode, moderate degree F33.[address] [place] [address] Jul, [address] [place] [address] Jul, [address] [place] [address] Jul, [address] [place] [address] Jul, [facility] [address] [id number] [place] [address] Jul, Major depressive disorder, recurrent epi sode, moderate degree F33.1 [facility] [address] [id number] [place] [address] Jul, [address] [place] [address] Jul, [facility] [id number] [place] [address] Jul, Encounter for immunization Z23 [address] [place] [address] Jul, Restrictive airway disease J 98.[address] [place] [address] Jul, Screening for breast cancer Z12.39 [place] [address] [id number] [place] [address] Jul, Major depressive disorder, recurrent epi sode, moderate degree F33.1 [place] [address] [place] [address] Jun, [place] [address] [place] [address] Jun, [place] [address] [place] [address] Jun, Shortness of breath R06.02 [place] [address] [place] [address] Jun, Shortness of breath R06.02 [place] [address] [place] [address] Jun, Shortness of breath R06.02 a nd Restrictive lung disease J98.4 [place] [address] [id number] [place] [address] Jun, Major depressive disorder, recurrent epi sode, moderate degree F33.1 [place] [address] [place] [address] Jun, [place] [address] [id number] [place] [address] Jun, History of tobacco use Z87.891 ; Screeni ng for breast cancer Z12.39 and Trigger point M79.10 [place] [address] [address] Jun, [place] [address] [place] [address] Jun, Major depressive disorder, r ecurrent episode, moderate degree F33.1 ; Trigger point M79.10 ; History of tobacco use Z87.891 and Screening for breast cancer Z12.39 [facility] [address] [id number] [place] [address] Jun, Major depressive disorder, recurrent epi sode, moderate degree F33.1 [facility] [address] [id number] [place] [address] May, Major depressive disorder, recurrent epi sode, moderate degree F33.1 [facility] [address] [place] [address] May, Essential tremor G25.0 ; Can dida rash of groin B37.89 and History of hypertension Z86.79 [facility] [address] [place] [address] May, [facility] [address] [place] [address] May, [facility] [address] [id number] [place] [address] May, Major depressive disorder, recurrent epi sode, moderate degree F33.1 [facility] [address] [place] [address] Apr, [facility] [address] [facility] [address] Apr, [facility] [address] [place] [address] Mar, [facility] [address] [place] [address] Mar, [facility] [address] [place] [address] Mar, [facility] [address] [place] [address] Mar, [facility] [address] [place] [address] Mar, [facility] [address] [id number] [place] [address] Mar, Spinal stenosis of lumbar region without neurogenic claudication M48.061 [facility] [address] [facility] [id number] [place] [address] Mar, Therapeutic drug monitoring Z51.81 [facility] [address] [place] [address] February, Therapeutic drug monitoring Z51.81 [facility] [address] [place] [address] Jan, [facility] [address] [place] [address] Jan, [facility] [address] [place] [address] Jan, [facility] [address] [facility] [address] [place] [address] Dec, [facility] [address] [facility] [address] [place] [address] Dec, [facility] [address] [facility] [address] [place] [address] Dec, [facility] [address] [place] [address] [address] [place] [address] Nov, [facility] [address] [place], [place] [address] [place] [address] Nov, [facility] [address] [id number] [place] [address] Sep, Dental examination Z01.20 [facility] [address] [id number] [place] [id number] 10 Jun, 2015 Dental examination V72.2 [facility] [id number] [place] [address] 14 Jan, 2015 [facility] [address] [id number] [place] [address] Jan, [facility] [id number] [place] [address] Oct, [facility] [address] [facility] [id number] [place] [address] Oct, [facility] [address] [facility] [id number] [place] [address] Jul, [facility] [address] [facility] [id number] [place] [address] Jul, [facility] [address] [facility] [id number] [facility] [address] Jun, [facility] [address] [facility] [id number] [place] [address] Jun, [facility] [address] [id number] [place] [address] May, [facility] [address] [id number] [place] [address] May, 2013 [facility] [address] [id number] [place] [address] May, [facility] [address] [facility] [id number] [place] [address] May, 2013 [facility] [address] [id number] [place] [address] May, [facility] [address] [id number] [place] [address] May, 2013 [facility] [address] [id number] [place] [address] May, [facility] [address] [facility] [id number] [place] [address] May, [facility] [address] [facility] [id number] [place] [address] Apr, 2013 [facility] [address] [facility] [id number] [place] [address] Apr, 2013 [facility] [address] [id number] [place] [address] Apr, 2013 [facility] [address] [id number] [facility] [address] 16 Apr, 2013 [facility] [address] [id number] [place] [address] 16 Apr, 2013 [facility] [address] [facility] [id number] [place] [address] 16 Apr, 2013 [facility] [address] [id number] [place] [address] 15 Apr, 2013 [facility] [address] [facility] [id number] [place] [address] 15 Apr, 2013 [facility] [address] [facility] [id number] [place] [address] Apr, 2013 [facility] [address] [id number] [place] [address] Apr, 2013 [facility] [address] [id number] [place] [address] Apr, 2013 [facility] [address] [id number] [place] [address] Apr, 2013 [facility] [address] [facility] [id number] [place] [address] Apr, 2013 [facility] [address] [id number] [place] [address] Apr, 2013 [facility] [address] [id number] [place] [address] Apr, 2013 [facility] [address] [id number] [place] [address] Apr, 2013 [facility] [address] [facility] [id number] [place] [address] Apr, 2013 [facility] [address] [id number] [place] [address] Mar, [facility] [address] [id number] [place] [address] Mar, 2013 [facility] [address] [id number] [place] [address] Mar2013 [facility] [address] [facility] [id number] [place] [address] Mar, [facility] [address] [id number] [place] [address] Mar, [facility] [address] [id number] [place] [address] Mar, [facility] [address] [id number] [place] [address] Mar, [facility] [address] [id number] [place] [address] Mar, [facility] [address] [id number] [place] [address] Mar, [facility] [address] [id number] [place] [address] Mar, [facility] [address] [id number] [place] [address] Mar, [facility] [address] [id number] [place] [address] Mar, [facility] [address] [id number] [place] [address] February, [facility] [address] [id number] [place] [address] February, [facility] [address] [id number] [place] [address] February, [facility] [address] [id number] [place] [address] February, [facility] [address] [id number] [place] [address] February, [facility] [address] [id number] [place] [address] February, [facility] [address] [id number] [place] [address] February, [facility] [address] [id number] [place] [address] February, [facility] [address] [facility] [id number] [place] [address] February, [facility] [address] [facility] [id number] [place] [address] February, [facility] [address] [id number] [place] [address] February, [facility] [address] [id number] [place] [address] February, [facility] [address] [facility] [id number] [place] [address] Jan, [facility] [address] [id number] [place] [address] Jan, [facility] [address] [id number] [place] [address] Jan, [facility] [address] [id number] [place] [address] Jan, [facility] [address] [id number] [place] [address] Jan, [facility] [address] [id number] [place] [address] Jan, [facility] [address] [id number] [place] [address] Dec, [facility] [address] [id number] [place] [address] Dec, [facility] [address] [id number] [place] [address] Dec, [facility] [address] [id number] [place] [address] Dec, [facility] [address] [id number] [place] [address] Dec, [facility] [address] [id number] [place] [address] Dec, [facility] [address] [id number] [facility] [address] Nov, [facility] [address] [id number] [place] [address] Nov, [facility] [address] [id number] [place] [address] Nov, [facility] [address] [id number] [place] [address] Nov, [facility] [address] [id number] [place] [address] Oct, [facility] [address] [id number] [place] [address] Oct, [facility] [address] [id number] [place] [address] Oct, [facility] [address] [id number] [place] [address] Oct, [facility] [address] [id number] [place] [address] Oct, [facility] [address] [id number] [place] [address] Oct, [facility] [address] [id number] [place] [address] Oct, [facility] [address] [id number] [place] [address] Oct, [facility] [address] [id number] [place] [address] Oct, [facility] [address] [id number] [place] [address] Sep, [facility] [id number] [place] [address] Sep, [facility] [address] [id number] [place] [address] Sep, [facility] [id number] [place] [address] Sep, [facility] [address] [id number] [place] [address] 16 Sep, 2013 [facility] [address] [id number] [place] [address] Sep, [facility] [address] [id number] [place] [address] Sep, [facility] [address] [id number] [place] [address] Aug, [facility] [address] [id number] [place] [address] Aug, [facility] [address] [id number] [place] [address] Jul, [facility] [address] [id number] [place] [address] Jul, [facility] [id number] [place] [address] 14 Jul, 2013 [facility] [address] [id number] [place] [address] 14 Jul, 2013 [facility] [address] [id number] [place] [address] Jul, [facility] [address] [id number] [place] [address] Jul, [facility] [address] [id number] [place] [address] 25 Jun, 2013 [facility] [address] [id number] [place] [address] 16 Jun, 2013 [facility] [address] [id number] [place] [address] 13 Jun, 2013 [facility] [address] [id number] [place] [address] 30 May, 2013 [facility] [address] [id number] [place] [address] May, [facility] [address] [id number] [place] [address] Apr, [facility] [address] [id number] [facility] [address] Apr, [facility] [address] [id number] [place] [address] Apr, [facility] [address] [id number] [place] [address] Mar, [facility] [address] [id number] [place] [address] Mar, [facility] [address] [id number] [facility] [address] February, [facility] [address] [id number] [place] [address] February, [facility] [address] [id number] [place] [address] Jan, [facility] [address] [id number] [place] [address] Jan, [facility] [address] [id number] [place] [address] Dec, [facility] [address] [id number] [place] [address] Nov, [facility] [address] [id number] [place] [address] Nov, [facility] [address] [id number] [place] [address] Nov, [facility] [address] [id number] [place] [address] Oct, [facility] [address] [id number] [place] [address] Aug, [facility] [address] [id number] [place] [address] Aug, [facility] [address] [id number] [place] [address] Aug, [facility] [id number] [place] [address] 08 Aug, 2012 [facility] [address] [id number] [place] [address] 26 Jun, 2012 [facility] [address] [id number] [place] [address] 10 Jun, 2012 [facility] [address] [id number] [place] [address] 08 Jun, 2012 [facility] [address] [id number] [place] [address] 07 Jun, 2012 [facility] [address] [id number] [place] [address] 05 Jun, 2012 [facility] [address] [id number] [place] [address] 31 May, 2012 [facility] [address] [id number] [place] [address] 14 May, 2012 [facility] [address] [id number] [place] [address] May, [facility] [address] [id number] [place] [address] May, [facility] [address] [id number] [place] [address] Mar, [facility] [address] [id number] [place] [address] Mar, [facility] [address] [id number] [place] [address] February, [facility] [address] [id number] [place] [address] 15 Feb, 2012 [facility] [address] [id number] [place] [address] 25 Jan, 2012 [facility] [address] [id number] [place] [address] 17 Jan, 2012 [facility] [address] [id number] [place] [address] 13 Jan, 2012 [facility] [address] [id number] [place] [address] 12 Jan, 2012 [facility] [address] [id number] [place] [address] 11 Jan, 2012 [facility] [address] [id number] [place] [address] 20 Nov, 2011 [facility] [address] [id number] [place] [address] 15 Nov, 2011 [facility] [address] [id number] [place] [address] 10 Nov, 2011 [facility] [address] [id number] [place] [address] Oct, [facility] [address] [id number] [place] [address] 14 Sep, 2011 [facility] [address] [id number] [place] [address] 14 Sep, 2011 [facility] [address] [id number] [place] [address] 09 Sep, 2011 [facility] [address] [id number] [place] [address] 22 Aug, 2011 [facility] [address] [id number] [place] [address] Aug, [facility] [address] [id number] [place] [address] Jul, [facility] [address] [id number] [place] [address] Jul, [facility] [address] [id number] [place] [address] 18 Jun, 2010 [facility] [address] [id number] [place] [address] 17 Nov, 2009 [facility] [address] [id number] [place] [address] Aug, [facility] [address] [id number] [place] [address] Mar, [facility] [address] [facility] [id number] [place] [address] Nov, IMMUNIZATIONS No Known Immunizations SOCIAL HISTORY Never Assessed REASON FOR VISIT Controlled Med Refill PLAN OF CARE VITAL SIGNS MEDICATIONS Medication Instructions Dosage Frequency Start Date End Date Duration S tatus Hydrocodone-Acetaminophen 5-325 MG Orally every 4 hrs as needed 1 t ablet Dec, 28 days Active RESULTS No Results PROCEDURES No Known procedures [...]
--- OUTSIDE RECORDS SUMMARY | 2020-03-15 07:07 | XMS REPORT ---
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 Meat Name Role Phone LIVE DIAZ Unavailable PROBLEMS Type Condition ICD9-CM Code REO78-VT Code Onset Dates Condition S tatus SNOMED Code Problem Essential tremor G25.0 Active 609 876088 Problem Mitral valve prolapse I34.1 Active 826267458 Problem Other chronic pain G89.29 Active 8 9628309 Problem Osteopenia of multiple sites M85.89 A ctive 283650217 Problem Major depressive disorder, recurrent episode, moderate deg ree F33.1 Active 61951809 Problem Morbid obesity due to excess calories E66.01 Active 813577372 Problem Family history of colon cancer Z80.0 Active 491643978 Problem Chronic obstructive pulmonary disease, unspecified COPD ty pe J44.9 Active 15686041 Problem Hx of fracture of left hip Z87.81 Act west 924263795 Problem Back pain with history of spinal surgery M54.9 Active 540124384 ALLERGIES No Information ENCOUNTERS Encounter Location Date Diagnosis [place] [address] [address] Dec, [place] [address] [address] Dec, [facility] [address] [address] Nov, [place] [address] [address] Oct, [place] [address] [address] Oct, Major depressive disorder, recurrent epi sode, moderate degree F33.1 [facility] [address] [address] Oct, Lumbar radiculopathy, acute M54.16 [facility] [address] [address] 17 Oct, 2019 [place] [address] [address] 15 Oct, 2019 Back pain with history of spinal surgery M54.9 ; Major depressive disorder, recurrent episode, moderate degree F33.1 ; Osteopenia of multiple sites M85.89 ; Easy bruising R23.8 ; Morbid obesity due to excess calories E66.01 ; Sore throat J02.9 ; Cough R05 ; Therapeutic drug monitoring Z51.81 and Severe back pain M54.9 [place] [address] [address] Oct, Major depressive disorder, recurrent epi sode, moderate degree F33.1 [place] [address] [address] Sep, Lumbar radiculopathy, acute M54.16 [place] [address] [address] Sep, [address] [address] Sep, Laryngitis J04.0 ; Asymptomatic menopaus al state Z78.0 and Hx of fracture of left hip Z87.81 [place] [address] [address] Sep, Major depressive disorder, recurrent epi sode, moderate degree F33.1 [place] [address] [address] Sep, [place] [address] [address] Aug, [facility] [address] [address] Aug, [place] [address] [address] 19 Nov, 2019 Family history of colon cancer Z80.0 ; C hronic obstructive pulmonary disease, unspecified COPD type J44.9 ; Essential tremor G25.0 ; Mitral valve prolapse I34.1 ; Other chronic pain G89.29 ; Hx of fracture of left hip Z87.81 and Encounter for immunization Z23 [facility] [address] [id number] [place] [address] Aug, Major depressive disorder, recurrent epi sode, moderate degree F33.1 [address] [place] [address] Aug, Muscle spasm M62.838 ; Sever e back pain M54.9 and Hx of spinal surgery Z98.890 [address] [place] [address] Aug, [facility] [address] [facility] [place] [address] Aug, Sore throat J02.9 ; Cough R05 and Viral upper respiratory illness J06.9 [place] [address] [id number] [place] [address] Aug, Major depressive disorder, recurrent epi sode, moderate degree F33.1 [address] [place] [address] Jul, [place] [address] [place] [address] Jul, [address] [place] [address] Jul, [address] [place] [address] Jul, [facility] [address] [place] [id number] [place] [address] Jul, Major depressive disorder, recurrent epi sode, moderate degree F33.1 [facility] [address] [id number] [place] [address] Jul, [address] [place] [address] Jul, [facility] [address] [id number] [place] [address] Jul, Encounter for immunization Z23 [address] [place] [address] Jul, Restrictive airway disease J 98.4 [place] [address] [place] [address] Jul, Screening for breast cancer Z12.39 [facility] [address] [place] [address] [id number] [place] [address] Jul, Major depressive disorder, recurrent epi sode, moderate degree F33.1 [address] [place] [address] Jun, [place] [address] [place] [address] Jun, [address] [place] [address] Jun, Shortness of breath R06.02 [place] [address] [place] [address] Jun, Shortness of breath R06.02 [address] [place] [address] Jun, Shortness of breath R06.02 a nd Restrictive lung disease J98.4 [facility] [address] [id number] [place] [address] Jun, Major depressive disorder, recurrent epi sode, moderate degree F33.1 [address] [place] [address] Jun, [facility] [address] [place] [id number] [place] [address] Jun, History of tobacco use Z87.891 ; Screeni ng for breast cancer Z12.39 and Trigger point M79.[address] [place] [address] Jun, [address] [place] [address] Jun, Major depressive disorder, r ecurrent episode, moderate degree F33.1 ; Trigger point M79.10 ; History of tobacco use Z87.891 and Screening for breast cancer Z12.39 [place] [address] [place] [id number] [place] [address] Jun, Major depressive disorder, recurrent epi sode, moderate degree F33.1 [place] [address] [place] [id number] [place] [address] May, Major depressive disorder, recurrent epi sode, moderate degree F33.1 [address] [place] [address] May, Essential tremor G25.0 ; Can dida rash of groin B37.89 and History of hypertension Z86.79 [facility] [place] [address] [place] [address] May, [address] [place] [address] May, [facility] [address] [id number] [place] [address] May, Major depressive disorder, recurrent epi sode, moderate degree F33.[address] [place] [address] Apr, [facility] [place] [address] [facility] [id number] [place] [address] Apr, [facility] [place] [facility] [address] [place] [address] Mar, [facility] [place] [address] [place] [address] Mar, [facility] [place] [address] [place] [address] Mar, [facility] [place] [address] [place] [address] Mar, [facility] [place] [address] [place] [address] Mar, [facility] [place] [address] [facility] [place] [address] Mar, Spinal stenosis of lumbar region without neurogenic claudication M48.061 [facility] [place] [address] [facility] [id number] [place] [address] Mar, Therapeutic drug monitoring Z51.81 [facility] [place] [address] [place] [address] February, Therapeutic drug monitoring Z51.81 [facility] [place] [address] [place] [address] Jan, [facility] [place] [address] [place] [address] Jan, [facility] [place] [address] [place] [address] Jan, [facility] [place] [address] [place] [address] Dec, [facility] [place] [address] [place] [address] Dec, [facility] [place] [address] [place] [address] Dec, [facility] [place] [address] [place] [address] Nov, [facility] [place] [address] [place] [address] Nov, [facility] [facility] [address] [id number] [place] [address] Sep, Dental examination Z01.20 [facility] [facility] [address] [id number] [place] [id number] Jun, Dental examination V72.2 [facility] [place] [facility] [address] [id number] [place] [address] Jan, [facility] [place] [facility] [address] [id number] [place] [address] Jan, [facility] [place] [facility] [address] [id number] [place] [address] Oct, [facility] [place] [facility] [address] [id number] [place] [address] Oct, [facility] [place] [facility] [address] [id number] [place] [address] Jul, [facility] [place] [facility] [address] [id number] [place] [address] Jul, [facility] [place] [facility] [address] [id number] [place] [address] Jun, [facility] [place] [facility] [address] [id number] [place] [address] Jun, [facility] [place] [facility] [address] [id number] [place] [address] May, [facility] [place] [facility] [address] [id number] [place] [address] May, [facility] [place] [facility] [address] [id number] [place] [address] May, [facility] [place] [facility] [address] [id number] [place] [address] May, [facility] [place] [facility] [address] [id number] [place] [address] May, [facility] [place] [facility] [address] [id number] [place] [address] May, [facility] [place] [facility] [address] [id number] [place] [address] May, [facility] [place] [facility] [address] [id number] [place] [address] May, [facility] [place] [facility] [address] [id number] [place] [address] 17 Apr, 2013 [facility] [place] [facility] [address] [id number] [place] [address] 17 Apr, 2013 [facility] [place] [facility] [address] [facility] [id number] [facility] [address] 16 Apr, 2013 [facility] [place] [facility] [address] [facility] [id number] [facility] [place] [address] 16 Apr, 2013 [facility] [place] [facility] [address] [facility] [id number] [facility] [place] [address] 16 Apr, 2013 [facility] [place] [facility] [address] [facility] [id number] [facility] [address] 16 Apr, 2013 [facility] [place] [facility] [address] [facility] [id number] [place] [address] 15 Apr, 2013 [facility] [place] [facility] [address] [id number] [place] [address] 15 Apr, 2013 [facility] [place] [facility] [address] [id number] [place] [address] Apr, 2013 [facility] [place] [facility] [address] [facility] [id number] [facility] [address] Apr, 2013 [facility] [place] [facility] [address] [id number] [place] [address] Apr, 2013 [facility] [place] [facility] [address] [id number] [place] [address] 05 Apr, 2013 [facility] [place] [facility] [address] [id number] [place] [address] Apr, 2013 [facility] [place] [facility] [address] [facility] [id number] [place] [address] Apr, 2013 [facility] [place] [facility] [address] [id number] [place] [address] Apr, 2013 [facility] [place] [facility] [address] [facility] [id number] [place] [address] Apr, 2013 [facility] [place] [facility] [address] [id number] [place] [address] Apr, 2013 [facility] [place] [facility] [address] [facility] [id number] [place] [address] Mar, [facility] [place] [facility] [address] [facility] [id number] [place] [address] Mar, [facility] [place] [facility] [address] [facility] [id number] [place] [address] Mar, [facility] [place] [facility] [address] [id number] [place] [address] Mar, [facility] [place] [facility] [address] [facility] [id number] [place] [address] Mar, [facility] [place] [facility] [address] [id number] [place] [address] Mar, [facility] [place] [facility] [address] [id number] [place] [address] Mar, [facility] [place] [facility] [address] [id number] [place] [address] Mar, [facility] [place] [facility] [address] [id number] [place] [address] Mar, [facility] [place] [facility] [address] [id number] [place] [address] Mar, [facility] [place] [facility] [address] [id number] [place] [address] Mar, [facility] [place] [facility] [address] [id number] [place] [address] Mar, [facility] [place] [facility] [address] [id number] [place] [address] February, [facility] [place] [facility] [address] [facility] [id number] [place] [address] February, [facility] [place] [facility] [address] [id number] [place] [address] February, [facility] [place] [facility] [address] [id number] [place] [address] February, [facility] [place] [facility] [address] [id number] [place] [address] February, [facility] [place] [facility] [address] [id number] [place] [address] February, [facility] [place] [facility] [address] [facility] [id number] [facility] [address] February, [facility] [place] [facility] [address] [id number] [place] [address] February, [facility] [place] [facility] [address] [id number] [place] [address] February, [facility] [place] [facility] [address] [facility] [id number] [place] [address] February, [facility] [place] [facility] [address] [id number] [place] [address] February, [facility] [place] [facility] [address] [id number] [place] [address] February, [facility] [place] [facility] [address] [id number] [place] [address] Jan, [facility] [place] [facility] [address] [id number] [place] [address] Jan, [facility] [place] [facility] [address] [id number] [place] [address] Jan, [facility] [place] [facility] [address] [id number] [place] [address] Jan, [facility] [place] [facility] [address] [id number] [place] [address] Jan, [facility] [place] [facility] [address] [id number] [place] [address] Jan, [facility] [place] [facility] [address] [id number] [place] [address] Dec, [facility] [place] [facility] [address] [id number] [place] [address] Dec, [facility] [place] [facility] [address] [id number] [place] [address] Dec, [facility] [place] [facility] [address] [id number] [place] [address] Dec, [facility] [place] [facility] [address] [facility] [id number] [place] [address] Dec, [facility] [place] [facility] [address] [id number] [place] [address] Dec, [facility] [place] [facility] [address] [id number] [place] [address] Nov, [facility] [place] [facility] [address] [id number] [place] [address] Nov, [facility] [place] [facility] [address] [id number] [place] [address] Nov, [facility] [place] [facility] [address] [id number] [place] [address] Nov, [facility] [place] [facility] [address] [id number] [place] [address] Oct, [facility] [place] [facility] [address] [id number] [place] [address] Oct, [facility] [place] [facility] [address] [id number] [place] [address] Oct, [facility] [place] [facility] [address] [id number] [place] [address] Oct, [facility] [place] [facility] [address] [id number] [place] [address] Oct, [facility] [place] [facility] [address] [id number] [place] [address] Oct, [facility] [place] [facility] [address] [id number] [place] [address] Oct, [facility] [place] [facility] [address] [id number] [place] [address] Oct, [facility] [place] [facility] [address] [id number] [place] [address] Oct, [facility] [place] [facility] [address] [id number] [place] [address] Sep, [facility] [place] [facility] [address] [id number] [place] [address] 30 Sep, 2013 [facility] [place] [facility] [address] [id number] [place] [address] Sep, [facility] [place] [facility] [address] [id number] [place] [address] Sep, [facility] [place] [facility] [address] [id number] [place] [address] 16 Sep, 2013 [facility] [place] [facility] [address] [id number] [place] [address] Sep, [facility] [place] [facility] [address] [id number] [place] [address] Sep, [facility] [place] [facility] [address] [id number] [place] [address] Aug, [facility] [place] [facility] [address] [id number] [place] [address] Aug, [facility] [place] [facility] [address] [id number] [place] [address] 28 Jul, 2013 [facility] [place] [facility] [address] [id number] [place] [address] 28 Jul, 2013 [facility] [place] [facility] [address] [id number] [place] [address] 14 Jul, 2013 [facility] [place] [facility] [address] [id number] [place] [address] 14 Jul, 2013 [facility] [place] [facility] [address] [id number] [place] [address] 12 Jul, 2013 [facility] [place] [facility] [address] [id number] [place] [address] 12 Jul, 2013 [facility] [place] [address] [id number] [place] [address] 25 Jun, 2013 [facility] [address] [id number] [place] [address] 16 Jun, 2013 [facility] [address] [id number] [place] [address] Jun, [facility] [address] [facility] [id number] [place] [address] May, [facility] [address] [id number] [place] [address] May, [facility] [address] [id number] [place] [address] Apr, [facility] [address] [id number] [place] [address] Apr, [facility] [address] [id number] [place] [address] Apr, [facility] [address] [id number] [place] [address] Mar, [facility] [address] [id number] [place] [address] Mar, [facility] [address] [id number] [place] [address] February, [facility] [address] [id number] [place] [address] February, [facility] [address] [id number] [place] [address] Jan, [facility] [address] [id number] [place] [address] Jan, [facility] [address] [id number] [place] [address] Dec, [facility] [address] [id number] [place] [address] Nov, [facility] [address] [id number] [place] [address] Nov, [facility] [address] [id number] [place] [address] Nov, [facility] [address] [id number] [place] [address] Oct, [facility] [address] [id number] [place] [address] 08 Aug, 2012 [facility] [address] [id number] [place] [address] Aug, [facility] [address] [id number] [place] [address] Aug, [facility] [address] [id number] [place] [address] Aug, [facility] [address] [id number] [place] [address] Jun, [facility] [address] [id number] [place] [address] 10 Jun, 2012 [facility] [address] [id number] [place] [address] 08 Jun, 2012 [facility] [address] [id number] [place] [address] Jun, [facility] [address] [id number] [place] [address] 05 Jun, 2012 [facility] [address] [id number] [place] [address] May, [facility] [address] [id number] [place] [address] May, [facility] [address] [id number] [place] [address] May, [facility] [address] [id number] [place] [address] May, [facility] [address] [id number] [place] [address] Mar, [facility] [address] [id number] [place] [address] Mar, [facility] [address] [id number] [place] [address] February, [facility] [address] [id number] [place] [address] February[facility] [address] [id number] [place] [address] 25 Jan, 2012 [facility] [address] [id number] [place] [address] 17 Jan, 2012 [facility] [address] [id number] [place] [address] 13 Jan, 2012 [facility] [address] [id number] [place] [address] Jan, [facility] [address] [id number] [place] [address] Jan, [facility] [address] [id number] [place] [address] 20 Nov, 2011 [facility] [address] [id number] [place] [address] 15 Nov, 2011 [facility] [address] [id number] [place] [address] 10 Nov, 2011 [facility] [address] [id number] [place] [address] Oct, [facility] [address] [id number] [place] [address] 14 Sep, 2011 [facility] [address] [id number] [place] [address] 14 Sep, 2011 [facility] [address] [id number] [place] [address] Sep, [facility] [address] [id number] [place] [address] Aug, [facility] [address] [id number] [place] [address] Aug, [facility] [address] [id number] [place] [address] Jul, [facility] [address] [id number] [place] [address] Jul, [facility] [address] [id number] [place] [address] Jun, [facility] [address] [id number] [place] [address] Nov, [facility] [address] [id number] [place] [address] Aug[facility] [address] [id number] [place] [address] Mar, [facility] [address] [id number] [place] [address] Nov, IMMUNIZATIONS No Known Immunizations SOCIAL HISTORY [...]
--- OUTSIDE RECORDS SUMMARY | 2020-03-15 07:07 | XMS REPORT ---
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 Name Role Phone LIVE DIAZ Unavailable PROBLEMS Type Condition ICD9-CM Code STR91-UM Code Onset Dates Condition S tatus SNOMED Code Problem Essential tremor G25.0 Active 609 491023 Problem Mitral valve prolapse I34.1 Active 388338404 Problem Other chronic pain G89.29 Active 8 0996820 Problem Osteopenia of multiple sites M85.89 A ctive 505361900 Problem Major depressive disorder, recurrent episode, moderate deg ree F33.1 Active 29751176 Problem Morbid obesity due to excess calories E66.01 Active 926693463 Problem Family history of colon cancer Z80.0 Active 490429865 Problem Chronic obstructive pulmonary disease, unspecified COPD ty pe J44.9 Active 06319762 Problem Hx of fracture of left hip Z87.81 Act west 884951827 Problem Back pain with history of spinal surgery M54.9 Active [id number] ALLERGIES No Information ENCOUNTERS Encounter Location Date Diagnosis [place] [address] [address] Dec, [place] [address] [address] Dec, [facility] [address] [address] 13 Nov, 2019 [place] [address] [address] 05 Nov, 2019 [place] [address] [address] Oct, Major depressive disorder, recurrent epi sode, moderate degree F33.1 [facility] [address] [address] Oct, Lumbar radiculopathy, acute M54.16 [place] [address] [address] 17 Oct, 2019 [place] [address] [address] 15 Oct, 2019 Back pain with history of spinal surgery M54.9 ; Major depressive disorder, recurrent episode, moderate degree F33.1 ; Osteopenia of multiple sites M85.89 ; Easy bruising R23.8 ; Morbid obesity due to excess calories E66.01 ; Sore throat J02.9 ; Cough R05 ; Therapeutic drug monitoring Z51.81 and Severe back pain M54.9 [place] [address] [address] 07 Oct, 2019 Major depressive disorder, recurrent epi sode, moderate degree F33.1 [place] [address] [address] Sep, Lumbar radiculopathy, acute M54.16 [place] [address] [address] Sep, [address] [address] Sep, Laryngitis J04.0 ; Asymptomatic menopaus al state Z78.0 and Hx of fracture of left hip Z87.81 [place] [address] [address] Sep, Major depressive disorder, recurrent epi sode, moderate degree F33.1 [place] [address] [address] Sep, [place] [address] [address] Aug, [place] [address] [address] Aug, [place] [address] [address] 19 Nov, 2019 Family history of colon cancer Z80.0 ; C hronic obstructive pulmonary disease, unspecified COPD type J44.9 ; Essential tremor G25.0 ; Mitral valve prolapse I34.1 ; Other chronic pain G89.29 ; Hx of fracture of left hip Z87.81 and Encounter for immunization Z23 [facility] [address] [id number] [place] [address] Aug, Major depressive disorder, recurrent epi sode, moderate degree F33.1 [address] [place] [address] Aug, Muscle spasm M62.838 ; Sever e back pain M54.9 and Hx of spinal surgery Z98.890 [address] [place] [address] Aug, [facility] [address] [facility] [id number] [place] [address] Aug, Sore throat J02.9 ; Cough R05 and Viral upper respiratory illness J06.9 [place] [address] [id number] [place] [address] Aug, Major depressive disorder, recurrent epi sode, moderate degree F33.1 [address] [place] [address] Jul, [place] [address] [place] [address] Jul, [address] [place] [address] Jul, [address] [place] [address] Jul, [facility] [address] [place] [id number] [place] [address] Jul, Major depressive disorder, recurrent epi sode, moderate degree F33.1 [facility] [address] [place] [id number] [place] [address] Jul, [address] [place] [address] Jul, [facility] [address] [id number] [place] [address] Jul, Encounter for immunization Z23 [address] [place] [address] Jul, Restrictive airway disease J 98.4 [place] [address] [place] [address] Jul, Screening for breast cancer Z12.39 [place] [address] [place] [id number] [place] [address] Jul, Major depressive disorder, recurrent epi sode, moderate degree F33.1 [address] [place] [address] Jun, [place] [address] [place] [address] Jun, [address] [place] [address] Jun, Shortness of breath R06.02 [place] [address] [place] [address] Jun, Shortness of breath R06.02 [place] [address] [place] [address] Jun, Shortness of breath R06.02 a nd Restrictive lung disease J98.4 [facility] [address] [id number] [place] [address] Jun, Major depressive disorder, recurrent epi sode, moderate degree F33.1 [address] [place] [address] Jun, [facility] [address] [place] [address] [id number] [place] [address] Jun, History of tobacco use Z87.891 ; Screeni ng for breast cancer Z12.39 and Trigger point M79.10 [facility] [address] [place] [address] Jun, [address] [place] [address] Jun, Major depressive disorder, r ecurrent episode, moderate degree F33.1 ; Trigger point M79.10 ; History of tobacco use Z87.891 and Screening for breast cancer Z12.39 [place] [address] [place] [id number] [place] [address] Jun, Major depressive disorder, recurrent epi sode, moderate degree F33.1 [place] [address] [place] [id number] [place] [address] May, Major depressive disorder, recurrent epi sode, moderate degree F33.1 [address] [place] [address] May, Essential tremor G25.0 ; Can dida rash of groin B37.89 and History of hypertension Z86.79 [facility] [address] [place] [address] May, [address] [place] [address] May, [facility] [address] [id number] [place] [address] May, Major depressive disorder, recurrent epi sode, moderate degree F33.[address] [place] [address] Apr, [facility] [place] [address] [facility] [id number] [place] [address] Apr, [facility] [address] [place] [address] Mar, [facility] [address] [place] [address] Mar, [address] [place] [address] Mar, [facility] [address] [place] [address] Mar, [facility] [place] [facility] [address] [place] [address] Mar, [facility] [place] [address] [facility] [id number] [place] [address] Mar, Spinal stenosis of lumbar region without neurogenic claudication M48.061 [facility] [place] [address] [facility] [id number] [place] [address] Mar, Therapeutic drug monitoring Z51.81 [facility] [place] [facility] [address] [place] [address] February, Therapeutic drug monitoring Z51.81 [facility] [place] [facility] [address] [place] [address] Jan, [facility] [place] [facility] [address] [place] [address] Jan, [facility] [address] [place] [address] Jan, [facility] [address] [place] [address] Dec, [facility] [place] [facility] [address] [place] [address] Dec, [facility] [place] [facility] [address] [place] [address] Dec, [facility] [address] [place] [address] Nov, [facility] [address] [place] [address] Nov, [facility] [address] [id number] [place] [address] Sep, Dental examination Z01.20 [facility] [address] [id number] [place] [address] Jun, Dental examination V72.2 [facility] [place] [facility] [address] [id number] [place] [address] 14 Jan, 2015 [facility] [place] [facility] [address] [id number] [place] [address] Jan, [facility] [place] [facility] [address] [id number] [place] [address] Oct, [facility] [place] [facility] [address] [id number] [place] [address] Oct, [facility] [place] [facility] [address] [id number] [place] [address] Jul, [facility] [place] [facility] [address] [id number] [place] [address] Jul, [facility] [place] [facility] [address] [id number] [place] [address] Jun, [facility] [place] [facility] [address] [id number] [place] [address] Jun, [facility] [place] [facility] [address] [id number] [place] [address] May, [facility] [place] [facility] [address] [id number] [place] [address] May, [facility] [place] [facility] [address] [id number] [place] [address] May, [facility] [place] [facility] [address] [id number] [place] [address] May, [facility] [place] [facility] [address] [id number] [place] [address] May, [facility] [place] [facility] [address] [id number] [place] [address] May, [facility] [place] [facility] [address] [id number] [place] [address] May, [facility] [place] [facility] [address] [id number] [place] [address] May, [facility] [place] [facility] [address] [id number] [place] [address] 17 Apr, 2013 [facility] [place] [facility] [address] [id number] [place] [address] 17 Apr, 2013 [facility] [place] [facility] [address] [facility] [id number] [place] [address] Apr, 2013 [facility] [place] [facility] [address] [facility] [id number] [place] [address] 16 Apr, 2013 [facility] [place] [facility] [address] [facility] [id number] [place] [address] Apr, 2013 [facility] [place] [facility] [address] [facility] [id number] [place] [address] Apr, 2013 [facility] [place] [facility] [address] [facility] [id number] [place] [address] 15 Apr, 2013 [facility] [place] [facility] [address] [id number] [place] [address] 15 Apr, 2013 [facility] [place] [facility] [address] [id number] [place] [address] Apr, 2013 [facility] [place] [facility] [address] [facility] [id number] [place] [address] Apr, 2013 [facility] [place] [facility] [address] [id number] [place] [address] Apr, 2013 [facility] [place] [facility] [address] [id number] [place] [address] 05 Apr, 2013 [facility] [place] [facility] [address] [id number] [place] [address] Apr, 2013 [facility] [place] [facility] [address] [facility] [id number] [place] [address] Apr, 2013 [facility] [place] [facility] [address] [id number] [place] [address] Apr, 2013 [facility] [place] [facility] [address] [facility] [id number] [place] [address] Apr, 2013 [facility] [place] [facility] [address] [id number] [place] [address] Apr, 2013 [facility] [place] [facility] [address] [id number] [place] [address] Mar, [facility] [place] [facility] [address] [id number] [place] [address] Mar, [facility] [place] [facility] [address] [id number] [place] [address] Mar, [facility] [place] [facility] [address] [id number] [place] [address] Mar, [facility] [place] [facility] [address] [facility] [id number] [place] [address] Mar, [facility] [place] [facility] [address] [id number] [place] [address] Mar, [facility] [place] [facility] [address] [id number] [place] [address] Mar, [facility] [place] [facility] [address] [id number] [place] [address] Mar, [facility] [place] [facility] [address] [id number] [place] [address] Mar, [facility] [place] [facility] [address] [id number] [place] [address] Mar, [facility] [place] [facility] [address] [id number] [place] [address] Mar, [facility] [place] [facility] [address] [id number] [place] [address] Mar, [facility] [place] [facility] [address] [id number] [place] [address] February, [facility] [place] [facility] [address] [facility] [id number] [place] [address] February, [facility] [place] [facility] [address] [id number] [place] [address] February, [facility] [place] [facility] [address] [id number] [place] [address] February, [facility] [place] [facility] [address] [id number] [place] [address] February, [facility] [place] [facility] [address] [id number] [place] [address] February, [facility] [place] [facility] [address] [facility] [id number] [place] [address] February, [facility] [place] [facility] [address] [id number] [place] [address] February, [facility] [place] [facility] [address] [id number] [place] [address] February, [facility] [place] [facility] [address] [facility] [id number] [place] [address] February, [facility] [place] [facility] [address] [id number] [place] [address] February, [facility] [place] [facility] [address] [id number] [place] [address] February, [facility] [place] [facility] [address] [id number] [place] [address] Jan, [facility] [place] [facility] [address] [id number] [place] [address] Jan, [facility] [place] [facility] [address] [id number] [place] [address] Jan, [facility] [place] [facility] [address] [id number] [place] [address] Jan, [facility] [place] [facility] [address] [id number] [place] [address] Jan, [facility] [place] [facility] [address] [id number] [place] [address] Jan, [facility] [place] [facility] [address] [id number] [place] [address] Dec, [facility] [place] [facility] [address] [id number] [place] [address] Dec, [facility] [place] [facility] [address] [id number] [place] [address] Dec, [facility] [place] [facility] [address] [id number] [place] [address] Dec, [facility] [place] [facility] [address] [facility] [id number] [place] [address] Dec, [facility] [place] [facility] [address] [id number] [place] [address] Dec, [facility] [place] [facility] [address] [id number] [place] [address] Nov, [facility] [place] [facility] [address] [id number] [place] [address] Nov, [facility] [place] [facility] [address] [id number] [place] [address] Nov, [facility] [place] [facility] [address] [id number] [place] [address] Nov, [facility] [place] [facility] [address] [id number] [place] [address] Oct, [facility] [place] [facility] [address] [id number] [place] [address] Oct, [facility] [place] [facility] [address] [id number] [place] [address] Oct, [facility] [place] [facility] [address] [id number] [place] [address] Oct, [facility] [place] [facility] [address] [id number] [place] [address] Oct, [facility] [place] [facility] [address] [id number] [place] [address] Oct, [facility] [place] [facility] [address] [id number] [place] [address] Oct, [facility] [place] [facility] [address] [id number] [place] [address] Oct, [facility] [place] [facility] [address] [id number] [place] [address] Oct, [facility] [place] [facility] [address] [id number] [place] [address] Sep, [facility] [place] [facility] [address] [id number] [place] [address] 30 Sep, 2013 [facility] [place] [facility] [address] [id number] [place] [address] Sep, [facility] [place] [facility] [address] [id number] [place] [address] Sep, [facility] [place] [facility] [address] [id number] [place] [address] 16 Sep, 2013 [facility] [place] [facility] [address] [id number] [place] [address] Sep, [facility] [place] [facility] [address] [id number] [place] [address] Sep, [facility] [place] [facility] [address] [id number] [place] [address] Aug, [facility] [place] [facility] [address] [id number] [place] [address] Aug, [facility] [place] [facility] [address] [id number] [place] [address] 28 Jul, 2013 [facility] [place] [facility] [address] [id number] [place] [address] 28 Jul, 2013 [facility] [place] [facility] [address] [id number] [place] [address] 14 Jul, 2013 [facility] [place] [facility] [address] [id number] [place] [address] 14 Jul, 2013 [facility] [place] [facility] [address] [id number] [place] [address] 12 Jul, 2013 [facility] [place] [facility] [address] [id number] [place] [address] 12 Jul, 2013 [facility] [place] [facility] [address] [id number] [place] [address] 25 Jun, 2013 [facility] [place] [facility] [address] [id number] [place] [address] 16 Jun, 2013 [facility] [place] [facility] [address] [id number] [place] [address] Jun, [facility] [address] [id number] [place] [address] May, [facility] [place] [facility] [address] [id number] [place] [address] May, [facility] [place] [facility] [address] [id number] [place] [address] Apr, [facility] [place] [facility] [address] [id number] [place] [address] Apr, [facility] [place] [facility] [address] [id number] [place] [address] Apr, [facility] [place] [facility] [address] [id number] [place] [address] Mar, [facility] [place] [facility] [address] [id number] [place] [address] Mar, [facility] [address] [id number] [place] [address] February, [facility] [address] [id number] [place] [address] February, [facility] [address] [id number] [place] [address] Jan, [facility] [address] [id number] [place] [address] Jan, [facility] [address] [id number] [place] [address] Dec, [facility] [address] [id number] [place] [address] Nov, [facility] [address] [id number] [place] [address] Nov, [facility] [address] [id number] [place] [address] Nov, [facility] [address] [id number] [place] [address] Oct, [facility] [address] [id number] [place] [address] 08 Aug, 2012 [facility] [address] [id number] [place] [address] Aug, [facility] [address] [id number] [place] [address] Aug, [facility] [address] [id number] [place] [address] Aug, [facility] [address] [id number] [place] [address] Jun, [facility] [address] [id number] [place] [address] 10 Jun, 2012 [facility] [address] [id number] [place] [address] Jun, [facility] [address] [id number] [place] [address] Jun, [facility] [address] [id number] [place] [address] 05 Jun, 2012 [facility] [address] [id number] [place] [address] May, [facility] [address] [id number] [place] [address] May, [facility] [address] [id number] [place] [address] May, [facility] [address] [id number] [place] [address] May, [facility] [address] [id number] [place] [address] Mar, [facility] [address] [id number] [place] [address] Mar, [facility] [address] [id number] [place] [address] February, [facility] [address] [id number] [place] [address] February[facility] [address] [id number] [place] [address] 25 Jan, 2012 [facility] [address] [id number] [place] [address] 17 Jan, 2012 [facility] [address] [id number] [place] [address] 13 Jan, 2012 [facility] [address] [id number] [place] [address] Jan, [facility] [address] [id number] [place] [address] Jan, [facility] [address] [id number] [place] [address] 20 Nov, 2011 [facility] [address] [id number] [place] [address] 15 Nov, 2011 [facility] [address] [id number] [place] [address] Nov, [facility] [address] [id number] [place] [address] Oct, [facility] [address] [id number] [place] [address] 14 Sep, 2011 [facility] [address] [id number] [place] [address] 14 Sep, 2011 [facility] [address] [id number] [place] [address] Sep, [facility] [address] [id number] [place] [address] Aug, [facility] [address] [id number] [place] [address] Aug, [facility] [address] [id number] [place] [address] Jul, [facility] [address] [id number] [place] [address] Jul, [facility] [address] [id number] [place] [address] Jun, [facility] [address] [id number] [place] [address] Nov, [facility] [address] [id number] [place] [address] Aug, [facility] [address] [facility] [id number] [place] [address] Mar, [facility] [address] [id number] [place] [address] Nov, IMMUNIZATIONS No Known Immunizations SOCIAL HISTORY Never Assessed REASON FOR VISIT PLAN OF CARE VITAL SIGNS Height 65 in 2014-02-23 Weight 237.9 lbs 2014-02-23 Temperature 97.7 degrees Fahrenheit 2014-02-23 Heart Rate 76 bpm 2014-02-23 Respiratory Rate 16 2014-02-23 Blood pressure systolic 130 mmHg 2014-02-23 Blood pressure diastolic 82 mmHg 2014-02-23 MEDICATIONS Unknown Medications RESULTS No Results PROCEDURES [...]
--- OUTSIDE RECORDS SUMMARY | 2020-03-15 07:07 | XMS REPORT ---
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 Name Role Phone LIVE DIAZ Unavailable PROBLEMS Type Condition ICD9-CM Code VPB30-XR Code Onset Dates Condition S tatus SNOMED Code Problem Essential tremor G25.0 Active 609 001535 Problem Mitral valve prolapse I34.1 Active 854884388 Problem Other chronic pain G89.29 Active 8 4337987 Problem Osteopenia of multiple sites M85.89 A ctive 058233871 Problem Major depressive disorder, recurrent episode, moderate deg ree F33.1 Active 96149600 Problem Morbid obesity due to excess calories E66.01 Active 004241994 Problem Family history of colon cancer Z80.0 Active 195778944 Problem Chronic obstructive pulmonary disease, unspecified COPD ty pe J44.9 Active 72836662 Problem Hx of fracture of left hip Z87.81 Act west 408098410 Problem Back pain with history of spinal surgery M54.9 Active [id number] ALLERGIES No Information ENCOUNTERS Encounter Location Date Diagnosis [place] [address] [address] Dec, [place] [address] [address] Dec, [facility] [address] [address] Nov, [place] [address] [address] Oct, [place] [address] [address] Oct, Major depressive disorder, recurrent epi sode, moderate degree F33.1 [facility] [address] [address] Oct, Lumbar radiculopathy, acute M54.16 [facility] [address] [address] 17 Oct, 2019 [place] [address] [address] 15 Oct, 2019 Back pain with history of spinal surgery M54.9 ; Major depressive disorder, recurrent episode, moderate degree F33.1 ; Osteopenia of multiple sites M85.89 ; Easy bruising R23.8 ; Morbid obesity due to excess calories E66.01 ; Sore throat J02.9 ; Cough R05 ; Therapeutic drug monitoring Z51.81 and Severe back pain M54.9 [place] [address] [address] Oct, Major depressive disorder, recurrent epi sode, moderate degree F33.1 [place] [address] [address] Sep, Lumbar radiculopathy, acute M54.16 [place] [address] [address] Sep, [address] [address] Sep, Laryngitis J04.0 ; Asymptomatic menopaus al state Z78.0 and Hx of fracture of left hip Z87.81 [place] [address] [address] Sep, Major depressive disorder, recurrent epi sode, moderate degree F33.1 [place] [address] [address] Sep, [place] [address] [address] Aug, [facility] [address] [address] Aug, [place] [address] [address] 19 Nov, 2019 Family history of colon cancer Z80.0 ; C hronic obstructive pulmonary disease, unspecified COPD type J44.9 ; Essential tremor G25.0 ; Mitral valve prolapse I34.1 ; Other chronic pain G89.29 ; Hx of fracture of left hip Z87.81 and Encounter for immunization Z23 [facility] [address] [id number] [place] [address] Aug, Major depressive disorder, recurrent epi sode, moderate degree F33.1 [address] [place] [address] Aug, Muscle spasm M62.838 ; Sever e back pain M54.9 and Hx of spinal surgery Z98.890 [address] [place] [address] Aug, [facility] [address] [facility] [place] [address] Aug, Sore throat J02.9 ; Cough R05 and Viral upper respiratory illness J06.9 [place] [address] [id number] [place] [address] Aug, Major depressive disorder, recurrent epi sode, moderate degree F33.1 [address] [place] [address] Jul, [place] [address] [address] [place] [address] Jul, [address] [place] [address] Jul, [address] [place] [address] Jul, [facility] [address] [place] [id number] [place] [address] Jul, Major depressive disorder, recurrent epi sode, moderate degree F33.1 [facility] [address] [id number] [place] [address] Jul, [address] [place] [address] Jul, [facility] [address] [id number] [place] [address] Jul, Encounter for immunization Z23 [address] [place] [address] Jul, Restrictive airway disease J 98.4 [place] [address] [place] [address] Jul, Screening for breast cancer Z12.39 [facility] [address] [place] [id number] [place] [address] Jul, Major depressive disorder, recurrent epi sode, moderate degree F33.1 [address] [place] [address] Jun, [place] [address] [place] [address] Jun, [address] [place] [address] Jun, Shortness of breath R06.02 [place] [address] [place] [address] Jun, Shortness of breath R06.02 [address] [place] [address] Jun, Shortness of breath R06.02 a nd Restrictive lung disease J98.4 [facility] [address] [id number] [place] [address] Jun, Major depressive disorder, recurrent epi sode, moderate degree F33.1 [address] [place] [address] Jun, [facility] [address] [place] [id number] [place] [address] Jun, History of tobacco use Z87.891 ; Screeni ng for breast cancer Z12.39 and Trigger point M79.[address] [place] [address] Jun, [address] [place] [address] Jun, Major depressive disorder, r ecurrent episode, moderate degree F33.1 ; Trigger point M79.10 ; History of tobacco use Z87.891 and Screening for breast cancer Z12.39 [place] [address] [place] [id number] [place] [address] Jun, Major depressive disorder, recurrent epi sode, moderate degree F33.1 [place] [address] [place] [id number] [place] [address] May, Major depressive disorder, recurrent epi sode, moderate degree F33.1 [address] [place] [address] May, Essential tremor G25.0 ; Can dida rash of groin B37.89 and History of hypertension Z86.79 [facility] [place] [address] [place] [address] May, [address] [place] [address] May, [facility] [address] [id number] [place] [address] May, Major depressive disorder, recurrent epi sode, moderate degree F33.[address] [place] [address] Apr, [facility] [place] [address] [facility] [id number] [place] [address] Apr, [facility] [place] [address] [place] [address] Mar, [facility] [place] [address] [place] [address] Mar, [facility] [place] [address] [place] [address] Mar, [facility] [place] [address] [place] [address] Mar, [facility] [place] [address] [place] [address] Mar, [facility] [place] [address] [facility] [place] [address] Mar, Spinal stenosis of lumbar region without neurogenic claudication M48.061 [facility] [place] [address] [facility] [id number] [place] [address] Mar, Therapeutic drug monitoring Z51.81 [facility] [place] [address] [place] [address] February, Therapeutic drug monitoring Z51.81 [facility] [place] [address] [place] [address] Jan, [facility] [place] [address] [place] [address] Jan, [facility] [place] [address] [place] [address] Jan, [facility] [place] [address] [place] [address] Dec, [facility] [place] [address] [place] [address] Dec, [facility] [place] [address] [place] [address] Dec, [facility] [place] [address] [place] [address] Nov, [facility] [place] [address] [place] [address] Nov, [facility] [address] [id number] [place] [id number] Sep, Dental examination Z01.20 [facility] [address] [id number] [place] [id number] Jun, Dental examination V72.2 [facility] [place] [facility] [address] [id number] [place] [address] Jan, [facility] [place] [facility] [address] [id number] [place] [address] Jan, [facility] [place] [facility] [address] [id number] [place] [address] Oct, [facility] [place] [facility] [address] [id number] [place] [address] Oct, [facility] [place] [facility] [address] [id number] [place] [address] Jul, [facility] [place] [facility] [address] [id number] [place] [address] Jul, [facility] [place] [facility] [address] [id number] [place] [address] Jun, [facility] [place] [facility] [address] [id number] [place] [address] Jun, [facility] [place] [facility] [address] [id number] [place] [address] May, [facility] [place] [facility] [address] [id number] [place] [address] May, [facility] [place] [facility] [address] [id number] [place] [address] May, [facility] [place] [facility] [address] [id number] [place] [address] May, [facility] [place] [facility] [address] [id number] [place] [address] May, [facility] [place] [facility] [address] [id number] [place] [address] May, [facility] [place] [facility] [address] [id number] [place] [address] May, [facility] [place] [facility] [address] [id number] [place] [address] May, [facility] [place] [facility] [address] [id number] [place] [address] 17 Apr, 2013 [facility] [place] [facility] [address] [id number] [place] [address] 17 Apr, 2013 [facility] [place] [facility] [address] [facility] [id number] [place] [address] 16 Apr, 2013 [facility] [place] [facility] [address] [facility] [id number] [place] [address] 16 Apr, 2013 [facility] [place] [facility] [address] [facility] [id number] [place] [address] 16 Apr, 2013 [facility] [place] [facility] [address] [facility] [id number] [place] [address] 16 Apr, 2013 [facility] [place] [facility] [address] [facility] [id number] [place] [address] 15 Apr, 2013 [facility] [place] [facility] [address] [id number] [place] [address] 15 Apr, 2013 [facility] [place] [facility] [address] [id number] [place] [address] Apr, 2013 [facility] [place] [facility] [address] [facility] [id number] [place] [address] Apr, 2013 [facility] [place] [facility] [address] [id number] [place] [address] Apr, 2013 [facility] [place] [facility] [address] [id number] [place] [address] 05 Apr, 2013 [facility] [place] [facility] [address] [id number] [place] [address] Apr, 2013 [facility] [place] [facility] [address] [facility] [id number] [place] [address] Apr, 2013 [facility] [place] [facility] [address] [id number] [place] [address] Apr, 2013 [facility] [place] [facility] [address] [facility] [id number] [place] [address] Apr, 2013 [facility] [place] [facility] [address] [id number] [place] [address] Apr, 2013 [facility] [place] [facility] [address] [facility] [id number] [place] [address] Mar, [facility] [place] [facility] [address] [facility] [id number] [place] [address] Mar, [facility] [place] [facility] [address] [facility] [id number] [place] [address] Mar, [facility] [place] [facility] [address] [id number] [place] [address] Mar, [facility] [place] [facility] [address] [facility] [id number] [place] [address] Mar, [facility] [place] [facility] [address] [id number] [place] [address] Mar, [facility] [place] [facility] [address] [id number] [place] [address] Mar, [facility] [place] [facility] [address] [id number] [place] [address] Mar, [facility] [place] [facility] [address] [id number] [place] [address] Mar, [facility] [place] [facility] [address] [id number] [place] [address] Mar, [facility] [place] [facility] [address] [id number] [place] [address] Mar, [facility] [place] [facility] [address] [id number] [place] [address] Mar, [facility] [place] [facility] [address] [id number] [place] [address] February, [facility] [place] [facility] [address] [facility] [id number] [place] [address] February, [facility] [place] [facility] [address] [id number] [place] [address] February, [facility] [place] [facility] [address] [id number] [place] [address] February, [facility] [place] [facility] [address] [id number] [place] [address] February, [facility] [place] [facility] [address] [id number] [place] [address] February, [facility] [place] [facility] [address] [facility] [id number] [place] [address] February, [facility] [place] [facility] [address] [id number] [place] [address] February, [facility] [place] [facility] [address] [id number] [place] [address] February, [facility] [place] [facility] [address] [facility] [id number] [place] [address] February, [facility] [place] [facility] [address] [id number] [place] [address] February, [facility] [place] [facility] [address] [id number] [place] [address] February, [facility] [place] [facility] [address] [id number] [place] [address] Jan, [facility] [place] [facility] [address] [id number] [place] [address] Jan, [facility] [place] [facility] [address] [id number] [place] [address] Jan, [facility] [place] [facility] [address] [id number] [place] [address] Jan, [facility] [place] [facility] [address] [id number] [place] [address] Jan, [facility] [place] [facility] [address] [id number] [place] [address] Jan, [facility] [place] [facility] [address] [id number] [place] [address] Dec, [facility] [place] [facility] [address] [id number] [place] [address] Dec, [facility] [place] [facility] [address] [id number] [place] [address] Dec, [facility] [place] [facility] [address] [id number] [place] [address] Dec, [facility] [place] [facility] [address] [facility] [id number] [place] [address] Dec, [facility] [place] [facility] [address] [id number] [place] [address] Dec, [facility] [place] [facility] [address] [id number] [place] [address] Nov, [facility] [place] [facility] [address] [id number] [place] [address] Nov, [facility] [place] [facility] [address] [id number] [place] [address] Nov, [facility] [place] [facility] [address] [id number] [place] [address] Nov, [facility] [place] [facility] [address] [id number] [place] [address] Oct, [facility] [place] [facility] [address] [id number] [place] [address] Oct, [facility] [place] [facility] [address] [id number] [place] [address] Oct, [facility] [place] [facility] [address] [id number] [place] [address] Oct, [facility] [place] [facility] [address] [id number] [place] [address] Oct, [facility] [place] [facility] [address] [id number] [place] [address] Oct, [facility] [place] [facility] [address] [id number] [place] [address] Oct, [facility] [place] [facility] [address] [id number] [place] [address] Oct, [facility] [place] [facility] [address] [id number] [place] [address] Oct, [facility] [place] [facility] [address] [id number] [place] [address] Sep, [facility] [place] [facility] [address] [id number] [place] [address] 30 Sep, 2013 [facility] [place] [facility] [address] [id number] [place] [address] Sep, [facility] [place] [facility] [address] [id number] [place] [address] Sep, [facility] [place] [facility] [address] [id number] [place] [address] 16 Sep, 2013 [facility] [place] [facility] [address] [id number] [place] [address] Sep, [facility] [place] [facility] [address] [id number] [place] [address] Sep, [facility] [place] [facility] [address] [id number] [place] [address] Aug, [facility] [place] [facility] [address] [id number] [place] [address] Aug, [facility] [place] [facility] [address] [id number] [place] [address] 28 Jul, 2013 [facility] [place] [facility] [address] [id number] [place] [address] 28 Jul, 2013 [facility] [place] [facility] [address] [id number] [place] [address] 14 Jul, 2013 [facility] [place] [facility] [address] [id number] [place] [address] 14 Jul, 2013 [facility] [place] [facility] [address] [id number] [place] [address] 12 Jul, 2013 [facility] [place] [facility] [address] [id number] [place] [address] 12 Jul, 2013 [facility] [place] [facility] [address] [id number] [place] [address] 25 Jun, 2013 [facility] [place] [facility] [address] [id number] [place] [address] 16 Jun, 2013 [facility] [place] [facility] [address] [id number] [place] [address] Jun, [facility] [address] [facility] [id number] [place] [address] May, [facility] [place] [facility] [address] [id number] [place] [address] May, [facility] [address] [id number] [place] [address] Apr, [facility] [address] [id number] [place] [address] Apr, [facility] [address] [id number] [place] [address] Apr, [facility] [address] [id number] [place] [address] Mar, [facility] [address] [id number] [place] [address] Mar, [facility] [address] [id number] [place] [address] February, [facility] [address] [id number] [place] [address] February, [facility] [address] [id number] [place] [address] Jan, [facility] [address] [id number] [place] [address] Jan, [facility] [address] [id number] [place] [address] Dec, [facility] [address] [id number] [place] [address] Nov, [facility] [address] [id number] [place] [address] Nov, [facility] [address] [id number] [place] [address] Nov, [facility] [address] [id number] [place] [address] Oct, [facility] [address] [id number] [place] [address] 08 Aug, 2012 [facility] [address] [id number] [place] [address] Aug, [facility] [address] [id number] [place] [address] Aug, [facility] [address] [id number] [place] [address] Aug, [facility] [address] [id number] [place] [address] Jun, [facility] [address] [id number] [place] [address] 10 Jun, 2012 [facility] [address] [id number] [place] [address] 08 Jun, 2012 [facility] [address] [id number] [place] [address] Jun, [facility] [address] [id number] [place] [address] 05 Jun, 2012 [facility] [address] [id number] [place] [address] May, [facility] [address] [id number] [place] [address] May, [facility] [address] [id number] [place] [address] May, [facility] [address] [id number] [place] [address] May, [facility] [address] [id number] [place] [address] Mar, [facility] [address] [id number] [place] [address] Mar, [facility] [address] [id number] [place] [address] February, [facility] [address] [id number] [place] [address] February, [facility] [address] [id number] [place] [address] 25 Jan, 2012 [facility] [address] [id number] [place] [address] 17 Jan, 2012 [facility] [address] [id number] [place] [address] 13 Jan, 2012 [facility] [address] [id number] [place] [address] Jan, [facility] [address] [id number] [place] [address] Jan, [facility] [address] [id number] [place] [address] 20 Nov, 2011 [facility] [address] [id number] [place] [address] 15 Nov, 2011 [facility] [address] [id number] [place] [address] 10 Nov, 2011 [facility] [address] [id number] [place] [address] Oct, [facility] [address] [id number] [place] [address] 14 Sep, 2011 [facility] [address] [id number] [place] [address] 14 Sep, 2011 [facility] [address] [id number] [place] [address] Sep, [facility] [address] [id number] [place] [address] Aug, [facility] [address] [id number] [place] [address] Aug, [facility] [address] [id number] [place] [address] Jul, [facility] [address] [id number] [place] [address] Jul, [facility] [address] [id number] [place] [address] Jun, [facility] [address] [id number] [place] [address] Nov, [facility] [address] [id number] [place] [address] Aug, [facility] [address] [id number] [place] [address] Mar, [facility] [address] [id number] [place] [address] Nov, IMMUNIZATIONS No Known Immunizations SOCIAL HISTORY Never Assessed REASON FOR VISIT PLAN OF CARE VITAL SIGNS Height 65 in 2014-03-21 Weight 237 lbs 2014-03-21 Temperature 97.2 degrees Fahrenheit 2014-03-21 Heart Rate 80 bpm 2014-03-21 Respiratory Rate 18 2014-03-21 Blood pressure systolic 130 mmHg 2014-03-21 Blood pressure diastolic 84 mmHg 2014-03-21 MEDICATIONS Unknown Medications RESULTS No Results PROCEDURES Procedure Date Ordered Result Body Site MRI NECK SPINE W/O DYE March 21, 2014 INJ METHYLPRDNISOLONE ACTAT 80 MG March 21, 2014 THER/PROPH/DIAG INJ, SC/IM March 21, 2014 INSTRUCTIONS MEDICATIONS ADMINISTERED No Known Medications [...]
--- OUTSIDE RECORDS SUMMARY | 2020-03-15 07:07 | XMS REPORT ---
Author Author Marleny DIAZ Organization [facility] Address [address] [place] [address] Care Team Providers Care Security System Installer Name Role Phone LIVE DIAZ Unavailable PROBLEMS Type Condition ICD9-CM Code BHY95-EU Code Onset Dates Condition S tatus SNOMED Code Problem Essential tremor G25.0 Active 609 108899 Problem Mitral valve prolapse I34.1 Active 569460619 Problem Other chronic pain G89.29 Active 8 6592391 Problem Osteopenia of multiple sites M85.89 A ctive 197642146 Problem Major depressive disorder, recurrent episode, moderate deg ree F33.1 Active 56140105 Problem Morbid obesity due to excess calories E66.01 Active 702319341 Problem Family history of colon cancer Z80.0 Active 246204263 Problem Chronic obstructive pulmonary disease, unspecified COPD ty pe J44.9 Active 63752137 Problem Hx of fracture of left hip Z87.81 Act west 769377112 Problem Back pain with history of spinal surgery M54.9 Active 086959001 ALLERGIES No Information ENCOUNTERS Encounter Location Date Diagnosis [place] [address] [address] Dec, [place] [address] [address] Dec, [facility] [address] [address] Nov, [place] [address] [address] Oct, [place] [address] [address] Oct, Major depressive disorder, recurrent epi sode, moderate degree F33.1 [facility] [address] [address] Oct, Lumbar radiculopathy, acute M54.16 [facility] [address] [address] 17 Oct, 2019 [place] [address] [address] 15 Oct, 2019 Back pain with history of spinal surgery M54.9 ; Major depressive disorder, recurrent episode, moderate degree F33.1 ; Osteopenia of multiple sites M85.89 ; Easy bruising R23.8 ; Morbid obesity due to excess calories E66.01 ; Sore throat J02.9 ; Cough R05 ; Therapeutic drug monitoring Z51.81 and Severe back pain M54.9 [place] [address] [address] Oct, Major depressive disorder, recurrent epi sode, moderate degree F33.1 [place] [address] [address] Sep, Lumbar radiculopathy, acute M54.16 [place] [address] [address] Sep, [address] [address] Sep, Laryngitis J04.0 ; Asymptomatic menopaus al state Z78.0 and Hx of fracture of left hip Z87.81 [place] [address] [address] Sep, Major depressive disorder, recurrent epi sode, moderate degree F33.1 [place] [address] [address] Sep, [place] [address] [address] Aug, [facility] [address] [address] Aug, [place] [address] [address] 19 Nov, 2019 Family history of colon cancer Z80.0 ; C hronic obstructive pulmonary disease, unspecified COPD type J44.9 ; Essential tremor G25.0 ; Mitral valve prolapse I34.1 ; Other chronic pain G89.29 ; Hx of fracture of left hip Z87.81 and Encounter for immunization Z23 [facility] [address] [id number] [place] [address] Aug, Major depressive disorder, recurrent epi sode, moderate degree F33.1 [address] [place] [address] Aug, Muscle spasm M62.838 ; Sever e back pain M54.9 and Hx of spinal surgery Z98.890 [address] [place] [address] Aug, [facility] [address] [id number] [place] [address] Aug, Sore throat J02.9 ; Cough R05 and Viral upper respiratory illness J06.9 [place] [address] [id number] [place] [address] Aug, Major depressive disorder, recurrent epi sode, moderate degree F33.1 [address] [place] [address] Jul, [place] [address] [place] [address] Jul, [address] [place] [address] Jul, [address] [place] [address] Jul, [facility] [address] [place] [id number] [place] [address] Jul, Major depressive disorder, recurrent epi sode, moderate degree F33.1 [facility] [address] [id number] [place] [address] Jul, [address] [place] [address] Jul, [facility] [address] [id number] [place] [address] Jul, Encounter for immunization Z23 [address] [place] [address] Jul, Restrictive airway disease J 98.4 [place] [address] [place] [address] Jul, Screening for breast cancer Z12.39 [facility] [address] [place] [id number] [place] [address] Jul, Major depressive disorder, recurrent epi sode, moderate degree F33.1 [address] [place] [address] Jun, [place] [address] [place] [address] Jun, [address] [place] [address] Jun, Shortness of breath R06.02 [place] [address] [place] [address] Jun, Shortness of breath R06.[address] [place] [address] Jun, Shortness of breath R06.02 a nd Restrictive lung disease J98.4 [facility] [address] [id number] [place] [address] Jun, Major depressive disorder, recurrent epi sode, moderate degree F33.1 [address] [place] [address] Jun, [facility] [address] [place] [id number] [place] [address] Jun, History of tobacco use Z87.891 ; Screeni ng for breast cancer Z12.39 and Trigger point M79.[address] [place] [address] Jun, [address] [place] [address] Jun, Major depressive disorder, r ecurrent episode, moderate degree F33.1 ; Trigger point M79.10 ; History of tobacco use Z87.891 and Screening for breast cancer Z12.39 [place] [address] [place] [id number] [place] [address] Jun, Major depressive disorder, recurrent epi sode, moderate degree F33.1 [place] [address] [place] [id number] [place] [address] May, Major depressive disorder, recurrent epi sode, moderate degree F33.1 [address] [place] [address] May, Essential tremor G25.0 ; Can dida rash of groin B37.89 and History of hypertension Z86.79 [facility] [address] [place] [address] May, [address] [place] [address] May, [facility] [address] [id number] [place] [address] May, Major depressive disorder, recurrent epi sode, moderate degree F33.[address] [place] [address] Apr, [facility] [place] [address] [facility] [id number] [place] [address] Apr, [facility] [address] [place] [address] Mar, [facility] [address] [place] [address] Mar, [facility] [address] [place] [address] Mar, [facility] [place] [address] [place] [address] Mar, [facility] [place] [address] [place] [address] Mar, [facility] [place] [address] [id number] [place] [address] Mar, Spinal stenosis of lumbar region without neurogenic claudication M48.061 [facility] [place] [address] [facility] [id number] [place] [address] Mar, Therapeutic drug monitoring Z51.81 [facility] [place] [address] [place] [address] February, Therapeutic drug monitoring Z51.81 [facility] [place] [address] [place] [address] Jan, [facility] [place] [address] [place] [address] Jan, [facility] [place] [facility] [address] [place] [address] Jan, [facility] [place] [facility] [address] [place] [address] Dec, [facility] [place] [facility] [address] [place] [address] Dec, [facility] [place] [facility] [address] [place] [address] Dec, [facility] [place] [facility] [address] [place] [address] Nov, [facility] [place] [facility] [address] [place] [address] Nov, [facility] [id number] [place] [id number] Sep, Dental examination Z01.20 [facility] [address] [id number] [place] [id number] Jun, Dental examination V72.2 [facility] [place] [facility] [address] [id number] [place] [address] Jan, [facility] [place] [facility] [address] [id number] [place] [address] Jan, [facility] [place] [facility] [address] [id number] [place] [address] Oct, [facility] [place] [facility] [address] [id number] [place] [address] Oct, [facility] [place] [facility] [address] [id number] [place] [address] Jul, [facility] [place] [facility] [address] [id number] [place] [address] Jul, [facility] [place] [facility] [address] [id number] [place] [address] Jun, [facility] [place] [facility] [address] [id number] [place] [address] Jun, [facility] [place] [facility] [address] [id number] [place] [address] May, [facility] [place] [facility] [address] [id number] [place] [address] May, [facility] [place] [facility] [address] [id number] [place] [address] May, [facility] [place] [facility] [address] [id number] [place] [address] May, [facility] [place] [facility] [address] [id number] [place] [address] May, [facility] [place] [facility] [address] [id number] [place] [address] May, [facility] [place] [facility] [address] [id number] [place] [address] May, [facility] [place] [facility] [address] [id number] [place] [address] May, [facility] [place] [facility] [address] [id number] [place] [address] 17 Apr, 2013 [facility] [place] [facility] [address] [id number] [place] [address] 17 Apr, 2013 [facility] [place] [facility] [address] [facility] [id number] [facility] [place] [address] 16 Apr, 2013 [facility] [place] [facility] [address] [facility] [id number] [facility] [place] [address] 16 Apr, 2013 [facility] [place] [facility] [address] [facility] [id number] [facility] [place] [address] 16 Apr, 2013 [facility] [place] [facility] [address] [facility] [id number] [facility] [place] [address] 16 Apr, 2013 [facility] [place] [facility] [address] [facility] [id number] [place] [address] 15 Apr, 2013 [facility] [place] [facility] [address] [id number] [place] [address] 15 Apr, 2013 [facility] [place] [facility] [address] [id number] [place] [address] Apr, 2013 [facility] [place] [facility] [address] [facility] [id number] [facility] [place] [address] Apr, 2013 [facility] [place] [facility] [address] [id number] [place] [address] Apr, 2013 [facility] [place] [facility] [address] [id number] [place] [address] 05 Apr, 2013 [facility] [place] [facility] [address] [id number] [place] [address] Apr, 2013 [facility] [place] [facility] [address] [facility] [id number] [place] [address] Apr, 2013 [facility] [place] [facility] [address] [id number] [place] [address] Apr, 2013 [facility] [place] [facility] [address] [facility] [id number] [place] [address] Apr, 2013 [facility] [place] [facility] [address] [id number] [place] [address] Apr, 2013 [facility] [place] [facility] [address] [facility] [id number] [place] [address] Mar, [facility] [place] [facility] [address] [facility] [id number] [place] [address] Mar, [facility] [place] [facility] [address] [facility] [id number] [place] [address] Mar, [facility] [place] [facility] [address] [id number] [place] [address] Mar, [facility] [place] [facility] [address] [facility] [id number] [place] [address] Mar, [facility] [place] [facility] [address] [id number] [place] [address] Mar, [facility] [place] [facility] [address] [id number] [place] [address] Mar, [facility] [place] [facility] [address] [id number] [place] [address] Mar, [facility] [place] [facility] [address] [id number] [place] [address] Mar, [facility] [place] [facility] [address] [id number] [place] [address] Mar, [facility] [place] [facility] [address] [id number] [place] [address] Mar, [facility] [place] [facility] [address] [id number] [place] [address] Mar, [facility] [place] [facility] [address] [id number] [place] [address] February, [facility] [place] [facility] [address] [facility] [id number] [place] [address] February, [facility] [place] [facility] [address] [id number] [place] [address] February, [facility] [place] [facility] [address] [id number] [place] [address] February, [facility] [place] [facility] [address] [id number] [place] [address] February, [facility] [place] [facility] [address] [id number] [place] [address] February, [facility] [place] [facility] [address] [facility] [id number] [facility] [place] [address] February, [facility] [place] [facility] [address] [id number] [place] [address] February, [facility] [place] [facility] [address] [id number] [place] [address] February, [facility] [place] [facility] [address] [facility] [id number] [place] [address] February, [facility] [place] [facility] [address] [id number] [place] [address] February, [facility] [place] [facility] [address] [id number] [place] [address] February, [facility] [place] [facility] [address] [id number] [place] [address] Jan, [facility] [place] [facility] [address] [id number] [place] [address] Jan, [facility] [place] [facility] [address] [id number] [place] [address] Jan, [facility] [place] [facility] [address] [id number] [place] [address] Jan, [facility] [place] [facility] [address] [id number] [place] [address] Jan, [facility] [place] [facility] [address] [id number] [place] [address] Jan, [facility] [place] [facility] [address] [id number] [place] [address] Dec, [facility] [place] [facility] [address] [id number] [place] [address] Dec, [facility] [place] [facility] [address] [id number] [place] [address] Dec, [facility] [place] [facility] [address] [id number] [place] [address] Dec, [facility] [place] [facility] [address] [facility] [id number] [place] [address] Dec, [facility] [place] [facility] [address] [id number] [place] [address] Dec, [facility] [place] [facility] [address] [id number] [place] [address] Nov, [facility] [place] [facility] [address] [id number] [place] [address] Nov, [facility] [place] [facility] [address] [id number] [place] [address] Nov, [facility] [place] [facility] [address] [id number] [place] [address] Nov, [facility] [place] [facility] [address] [id number] [place] [address] Oct, [facility] [place] [facility] [address] [id number] [place] [address] Oct, [facility] [place] [facility] [address] [id number] [place] [address] Oct, [facility] [place] [facility] [address] [id number] [place] [address] Oct, [facility] [place] [facility] [address] [id number] [place] [address] Oct, [facility] [place] [facility] [address] [id number] [place] [address] Oct, [facility] [place] [facility] [address] [id number] [place] [address] Oct, [facility] [place] [facility] [address] [id number] [place] [address] Oct, [facility] [place] [facility] [address] [id number] [place] [address] Oct, [facility] [place] [facility] [address] [id number] [place] [address] Sep, [facility] [place] [facility] [address] [id number] [place] [address] 30 Sep, 2013 [facility] [place] [facility] [address] [id number] [place] [address] Sep, [facility] [place] [facility] [address] [id number] [place] [address] Sep, [facility] [place] [facility] [address] [id number] [place] [address] 16 Sep, 2013 [facility] [place] [facility] [address] [id number] [place] [address] Sep, [facility] [place] [facility] [address] [id number] [place] [address] Sep, [facility] [place] [facility] [address] [id number] [place] [address] Aug, [facility] [place] [facility] [address] [id number] [place] [address] Aug, [facility] [place] [facility] [address] [id number] [place] [address] 28 Jul, 2013 [facility] [place] [facility] [address] [id number] [place] [address] 28 Jul, 2013 [facility] [place] [facility] [address] [id number] [place] [address] 14 Jul, 2013 [facility] [place] [facility] [address] [id number] [place] [address] 14 Jul, 2013 [facility] [place] [facility] [address] [id number] [place] [address] 12 Jul, 2013 [facility] [place] [facility] [address] [id number] [place] [address] 12 Jul, 2013 [facility] [place] [facility] [address] [id number] [place] [address] 25 Jun, 2013 [facility] [place] [facility] [address] [id number] [place] [address] 16 Jun, 2013 [facility] [place] [facility] [address] [id number] [place] [address] Jun, [facility] [address] [facility] [id number] [place] [address] May, [facility] [place] [facility] [address] [id number] [place] [address] May, [facility] [place] [facility] [address] [id number] [place] [address] Apr, [facility] [place] [facility] [address] [id number] [place] [address] Apr, [facility] [place] [facility] [address] [id number] [place] [address] Apr, [facility] [place] [facility] [address] [id number] [place] [address] Mar, [facility] [place] [facility] [address] [id number] [place] [address] Mar, [facility] [place] [facility] [address] [id number] [place] [address] February, [facility] [place] [facility] [address] [id number] [place] [address] February, [facility] [place] [facility] [address] [id number] [place] [address] Jan, [facility] [place] [facility] [address] [id number] [place] [address] Jan, [facility] [place] [facility] [address] [id number] [place] [address] Dec, [facility] [address] [id number] [place] [address] Nov, [facility] [address] [id number] [place] [address] Nov, [facility] [address] [id number] [place] [address] Nov, [facility] [address] [id number] [place] [address] Oct, [facility] [address] [id number] [place] [address] 08 Aug, 2012 [facility] [address] [id number] [place] [address] Aug, [facility] [address] [id number] [place] [address] Aug, [facility] [address] [id number] [place] [address] Aug, [facility] [address] [id number] [place] [address] Jun, [facility] [address] [id number] [place] [address] 10 Jun, 2012 [facility] [address] [id number] [place] [address] 08 Jun, 2012 [facility] [address] [id number] [place] [address] Jun, [facility] [address] [id number] [place] [address] 05 Jun, 2012 [facility] [address] [id number] [place] [address] May, [facility] [address] [id number] [place] [address] May, [facility] [address] [id number] [place] [address] May, [facility] [address] [id number] [place] [address] May, [facility] [address] [id number] [place] [address] Mar, [facility] [address] [id number] [place] [address] Mar, [facility] [address] [id number] [place] [address] February, [facility] [address] [id number] [place] [address] February, [facility] [address] [id number] [place] [address] 25 Jan, 2012 [facility] [address] [id number] [place] [address] 17 Jan, 2012 [facility] [address] [id number] [place] [address] 13 Jan, 2012 [facility] [address] [id number] [place] [address] Jan, [facility] [address] [id number] [place] [address] Jan, [facility] [address] [id number] [place] [address] 20 Nov, 2011 [facility] [address] [id number] [place] [address] 15 Nov, 2011 [facility] [address] [id number] [place] [address] 10 Nov, 2011 [facility] [address] [id number] [place] [address] Oct, [facility] [address] [id number] [place] [address] 14 Sep, 2011 [facility] [address] [id number] [place] [address] 14 Sep, 2011 [facility] [address] [id number] [place] [address] Sep, [facility] [address] [id number] [place] [address] Aug, [facility] [address] [id number] [place] [address] Aug, [facility] [address] [id number] [place] [address] Jul, [facility] [address] [id number] [place] [address] Jul, [facility] [address] [id number] [place] [address] Jun, [facility] [address] [id number] [place] [address] Nov, [facility] [address] [id number] [place] [address] Aug, [facility] [address] [id number] [place] [address] Mar, [facility] [address] [id number] [place] [address] Nov, IMMUNIZATIONS No Known Immunizations SOCIAL HISTORY [...]
--- OUTSIDE RECORDS SUMMARY | 2020-03-15 07:08 | XMS REPORT ---
Author Author Marleny DIAZ Organization [facility] [place] Address [address] [place] [address] Care Team Providers Care Manager Concrete Name Role Phone LIVE DIAZ Unavailable PROBLEMS Type Condition ICD9-CM Code FVK67-MM Code Onset Dates Condition S tatus SNOMED Code Problem Essential tremor G25.0 Active 609 550351 Problem Hx of fracture of left hip Z87.81 Act west 033178021 Problem Family history of colon cancer Z80.0 Active 478490505 Problem Osteopenia of multiple sites M85.89 A ctive 204291036 Problem Major depressive disorder, recurrent episode, moderate deg ree F33.1 Active 13558298 Problem Back pain with history of spinal surgery M54.9 Active 290290165 Problem Chronic obstructive pulmonary disease, unspecified COPD ty pe J44.9 Active 53057280 Problem Mitral valve prolapse I34.1 Active 269024066 Problem Other chronic pain G89.29 Active 8 2193482 Problem Morbid obesity due to excess calories E66.01 Active 547969320 ALLERGIES No Information ENCOUNTERS Encounter Location Date Diagnosis [place] [address] [address] Nov, [place] [address] [address] Oct, [place] [address] [address] Oct, [place] [address] [address] Oct, Back pain with history of spinal surgery M54.9 ; Major depressive disorder, recurrent episode, moderate degree F33.1 ; Osteopenia of multiple sites M85.89 ; Easy bruising R23.8 ; Morbid obesity due to excess calories E66.01 ; Sore throat J02.9 ; Cough R05 ; Therapeutic drug monitoring Z51.81 and Severe back pain M54.9 [place] [address] [address] 07 Oct, 2019 Major depressive disorder, recurrent epi sode, moderate degree F33.1 [place] [address] [address] Sep, Lumbar radiculopathy, acute M54.16 [place] [address] [address] Sep, [place] [address] [address] Sep, Laryngitis J04.0 ; Asymptomatic menopaus al state Z78.0 and Hx of fracture of left hip Z87.81 [place] [address] [address] Sep, Major depressive disorder, recurrent epi sode, moderate degree F33.1 [place] [address] [address] Sep, [place] [address] [address] Aug, [place] [address] [address] Aug, [place] [address] [address] Aug, Family history of colon cancer Z80.0 ; C hronic obstructive pulmonary disease, unspecified COPD type J44.9 ; Essential tremor G25.0 ; Mitral valve prolapse I34.1 ; Other chronic pain G89.29 ; Hx of fracture of left hip Z87.81 and Encounter for immunization Z23 [place] [address] [address] Aug, Major depressive disorder, recurrent epi sode, moderate degree F33.1 [address] [place] [address] Aug, Muscle spasm M62.838 ; Sever e back pain M54.9 and Hx of spinal surgery Z98.[address] [place] [address] Aug, [facility] [address] [facility] [id number] [place] [address] Aug, Sore throat J02.9 ; Cough R05 and Viral upper respiratory illness J06.9 [facility] [place] [address] [id number] [place] [address] Aug, Major depressive disorder, recurrent epi sode, moderate degree F33.[address] [place] [address] Jul, [address] [place] [address] Jul, [address] [place] [address] Jul, [address] [place] [address] Jul, [facility] [place] [address] [id number] [place] [address] Jul, Major depressive disorder, recurrent epi sode, moderate degree F33.1 [facility] [place] [address] [id number] [place] [address] Jul, [address] [place] [address] Jul, [facility] [place] [address] [id number] [place] [address] Jul, Encounter for immunization Z23 [address] [place] [address] Jul, Restrictive airway disease J 98.[address] [place] [address] Jul, Screening for breast cancer Z12.39 [place] [address] [place] [id number] [place] [address] Jul, Major depressive disorder, recurrent epi sode, moderate degree F33.1 [address] [place] [address] Jun, [address] [place] [address] Jun, [place] [address] [place] [address] Jun, Shortness of breath R06.02 [place] [address] [place] [address] Jun, Shortness of breath R06.02 [place] [address] [place] [address] Jun, Shortness of breath R06.02 a nd Restrictive lung disease J98.4 [facility] [place] [address] [place] [id number] [place] [address] Jun, Major depressive disorder, recurrent epi sode, moderate degree F33.1 [place] [address] [place] [address] Jun, [facility] [place] [address] [id number] [place] [address] 18 Jun, 2019 History of tobacco use Z87.891 ; Screeni ng for breast cancer Z12.39 and Trigger point M79.10 [place] [address] [place] [address] Jun, [place] [address] [place] [address] Jun, Major depressive disorder, r ecurrent episode, moderate degree F33.1 ; Trigger point M79.10 ; History of tobacco use Z87.891 and Screening for breast cancer Z12.39 [facility] [place] [address] [place] [id number] [place] [address] Jun, Major depressive disorder, recurrent epi sode, moderate degree F33.1 [place] [address] [id number] [place] [address] May, Major depressive disorder, recurrent epi sode, moderate degree F33.1 [facility] [address] [place] [address] May, Essential tremor G25.0 ; Can dida rash of groin B37.89 and History of hypertension Z86.79 [facility] [address] [place] [address] May, [facility] [address] [place] [address] May, [facility] [place] [address] [id number] [place] [address] May, Major depressive disorder, recurrent epi sode, moderate degree F33.1 [facility] [place] [address] [place] [address] Apr, [facility] [place] [address] [id number] [place] [address] Apr, [facility] [address] [place] [address] Mar, [facility] [address] [place] [address] Mar, [facility] [address] [place] [address] Mar, [facility] [address] [place] [address] Mar, [facility] [address] [place] [address] Mar, [facility] [place] [address] [id number] [place] [address] Mar, Spinal stenosis of lumbar region without neurogenic claudication M48.061 [facility] [place] [address] [facility] [id number] [place] [address] Mar, Therapeutic drug monitoring Z51.81 [facility] [place] [facility] [address] [place] [address] February, Therapeutic drug monitoring Z51.81 [facility] [place] [address] [place] [address] Jan, [facility] [place] [facility] [address] [place] [address] Jan, [facility] [place] [facility] [address] [place] [address] Jan, [facility] [place] [address] [place] [address] Dec, [facility] [place] [address] [place] [address] Dec, [facility] [place] [facility] [address] [place] [address] Dec, [facility] [place] [facility] [address] [place] [address] Nov, [facility] [place] [address] [place] [address] Nov, [facility] [place] [facility] [address] [id number] Sep, Dental examination Z01.20 [facility] [place] [facility] [address] [place] [id number] [place] [id number] 10 Jun, 2015 Dental examination V72.2 [facility] [place] [address] [place] [id number] [place] [address] 14 Jan, 2015 [facility] [place] [address] [place] [id number] [place] [address] Jan, [facility] [place] [address] [place] [id number] [place] [address] Oct, [facility] [place] [address] [place] [id number] [place] [address] Oct, [facility] [place] [address] [address] Jul, [facility] [place] [facility] [address] [facility] [id number] [place] [address] Jul, [facility] [place] [facility] [address] [facility] [id number] [facility] [place] [address] Jun, [facility] [place] [facility] [address] [facility] [id number] [place] [address] Jun, 2013 [facility] [place] [facility] [address] [facility] [id number] [place] [address] May, [facility] [place] [facility] [address] [facility] [id number] [place] [address] May, [facility] [place] [facility] [address] [id number] [place] [address] May, [facility] [place] [facility] [address] [id number] [place] [address] May, 2013 [facility] [place] [facility] [address] [id number] [place] [address] May, [facility] [place] [facility] [address] [facility] [id number] [place] [address] May, [facility] [place] [facility] [address] [id number] [place] [address] May, [facility] [place] [facility] [address] [id number] [place] [address] May, [facility] [place] [facility] [address] [id number] [place] [address] Apr, 2013 [facility] [place] [facility] [address] [facility] [id number] [place] [address] Apr, 2013 [facility] [place] [facility] [address] [facility] [id number] [place] [address] Apr, 2013 [facility] [place] [facility] [address] [facility] [id number] [place] [address] Apr, 2013 [facility] [place] [facility] [address] [id number] [place] [address] Apr, 2013 [facility] [place] [facility] [address] [facility] [id number] [place] [address] 16 Apr, 2013 [facility] [place] [facility] [address] [id number] [place] [address] 15 Apr, 2013 [facility] [place] [facility] [address] [facility] [id number] [place] [address] Apr, 2013 [facility] [place] [facility] [address] [id number] [place] [address] Apr, 2013 [facility] [place] [facility] [address] [facility] [id number] [place] [address] Apr, 2013 [facility] [place] [facility] [address] [facility] [id number] [place] [address] Apr, 2013 [facility] [place] [facility] [address] [id number] [place] [address] Apr, 2013 [facility] [place] [facility] [address] [id number] [place] [address] Apr, 2013 [facility] [place] [facility] [address] [id number] [place] [address] Apr, 2013 [facility] [place] [facility] [address] [facility] [id number] [place] [address] Apr, [facility] [place] [facility] [address] [id number] [place] [address] Apr, 2013 [facility] [place] [facility] [address] [id number] [place] [address] Apr, 2013 [facility] [place] [facility] [address] [id number] [place] [address] Mar, [facility] [place] [facility] [address] [facility] [id number] [place] [address] Mar, [facility] [place] [facility] [address] [id number] [place] [address] Mar, [facility] [place] [facility] [address] [id number] [place] [address] Mar, [facility] [place] [facility] [address] [id number] [place] [address] 13 Mar, 2014 [facility] [place] [facility] [address] [id number] [place] [address] Mar, [facility] [place] [facility] [address] [id number] [place] [address] Mar, [facility] [place] [facility] [address] [id number] [place] [address] Mar, [facility] [place] [facility] [address] [id number] [place] [address] Mar, [facility] [place] [facility] [address] [id number] [place] [address] Mar, [facility] [place] [facility] [address] [id number] [place] [address] Mar, [facility] [place] [facility] [address] [id number] [place] [address] Mar, [facility] [place] [facility] [address] [id number] [place] [address] February, [facility] [place] [facility] [address] [id number] [place] [address] February, [facility] [place] [facility] [address] [id number] [place] [address] February, [facility] [place] [facility] [address] [id number] [place] [address] February, [facility] [place] [facility] [address] [id number] [place] [address] February, [facility] [place] [facility] [address] [id number] [place] [address] February, [facility] [place] [facility] [address] [id number] [place] [address] February, [facility] [place] [facility] [address] [id number] [place] [address] February, [facility] [place] [facility] [address] [id number] [place] [address] February, [facility] [place] [facility] [address] [id number] [place] [address] February, [facility] [place] [facility] [address] [facility] [id number] [place] [address] February, [facility] [place] [facility] [address] [facility] [id number] [place] [address] February, [facility] [place] [facility] [address] [id number] [place] [address] Jan, [facility] [place] [facility] [address] [id number] [place] [address] Jan, [facility] [place] [facility] [address] [facility] [id number] [place] [address] Jan, [facility] [place] [facility] [address] [id number] [place] [address] Jan, [facility] [place] [facility] [address] [id number] [place] [address] Jan, [facility] [place] [facility] [address] [id number] [place] [address] Jan, [facility] [place] [facility] [address] [id number] [place] [address] Dec, [facility] [place] [facility] [address] [id number] [place] [address] Dec, [facility] [place] [facility] [address] [id number] [place] [address] Dec, [facility] [place] [facility] [address] [id number] [place] [address] Dec, [facility] [place] [facility] [address] [id number] [place] [address] Dec, [facility] [place] [facility] [address] [id number] [place] [address] Dec, [facility] [place] [facility] [address] [id number] [place] [address] Nov, [facility] [place] [facility] [address] [id number] [place] [address] Nov, [facility] [place] [facility] [address] [id number] [place] [address] 14 Nov, 2013 [facility] [place] [facility] [address] [id number] [place] [address] 14 Nov, 2013 [facility] [place] [facility] [address] [id number] [place] [address] Oct, [facility] [place] [facility] [address] [id number] [place] [address] Oct, [facility] [place] [facility] [address] [id number] [place] [address] Oct, [facility] [place] [facility] [address] [id number] [place] [address] Oct, [facility] [place] [facility] [address] [id number] [place] [address] Oct, [facility] [place] [facility] [address] [id number] [place] [address] Oct, [facility] [place] [facility] [address] [id number] [place] [address] Oct, [facility] [place] [facility] [address] [id number] [place] [address] Oct, [facility] [place] [facility] [address] [id number] [place] [address] Oct, [facility] [place] [facility] [address] [id number] [place] [address] Sep, [facility] [place] [facility] [address] [id number] [place] [address] 30 Sep, 2013 [facility] [place] [facility] [address] [id number] [place] [address] Sep, [facility] [place] [facility] [address] [id number] [place] [address] Sep, [facility] [place] [facility] [address] [id number] [place] [address] 16 Sep, 2013 [facility] [place] [facility] [address] [id number] [place] [address] Sep, [facility] [place] [facility] [address] [id number] [place] [address] Sep, [facility] [place] [facility] [address] [id number] [place] [address] Aug, [facility] [place] [facility] [address] [id number] [place] [address] Aug, [facility] [place] [facility] [address] [id number] [place] [address] Jul, [facility] [place] [facility] [address] [id number] [place] [address] 28 Jul, 2013 [facility] [place] [facility] [address] [id number] [place] [address] 14 Jul, 2013 [facility] [place] [facility] [address] [id number] [place] [address] 14 Jul, 2013 [facility] [place] [facility] [address] [id number] [place] [address] Jul, [facility] [place] [facility] [address] [id number] [place] [address] Jul, [facility] [place] [facility] [address] [id number] [place] [address] 25 Jun, 2013 [facility] [place] [facility] [address] [id number] [place] [address] 16 Jun, 2013 [facility] [place] [facility] [address] [id number] [place] [address] 13 Jun, 2013 [facility] [place] [facility] [address] [id number] [place] [address] 30 May, 2013 [facility] [place] [facility] [address] [id number] [place] [address] May, [facility] [place] [facility] [address] [id number] [place] [address] Apr, [facility] [place] [facility] [address] [id number] [place] [address] Apr, [facility] [place] [facility] [address] [id number] [place] [address] Apr, [facility] [place] [facility] [address] [id number] [place] [address] Mar, [facility] [place] [facility] [address] [id number] [place] [address] Mar, [facility] [place] [facility] [address] [id number] [place] [address] February, [facility] [place] [facility] [address] [id number] [place] [address] February, [facility] [place] [facility] [address] [id number] [place] [address] Jan, [facility] [place] [facility] [address] [id number] [place] [address] Jan, [facility] [place] [facility] [address] [id number] [place] [address] Dec, [facility] [place] [facility] [id number] [place] [address] Nov, [facility] [place] [facility] [address] [id number] [place] [address] Nov, [facility] [place] [facility] [address] [id number] [place] [address] Nov, [facility] [place] [facility] [address] [id number] [place] [address] Oct, [facility] [place] [facility] [id number] [place] [address] Aug, [facility] [place] [facility] [address] [id number] [place] [address] Aug, [facility] [place] [facility] [id number] [place] [address] Aug, [facility] [place] [facility] [address] [id number] [place] [address] Aug, [facility] [place] [facility] [address] [id number] [place] [address] Jun, [facility] [place] [facility] [address] [id number] [place] [address] 10 Jun, 2012 [facility] [place] [facility] [address] [id number] [place] [address] 08 Jun, 2012 [facility] [place] [facility] [address] [id number] [place] [address] 07 Jun, 2012 [facility] [address] [id number] [place] [address] 05 Jun, 2012 [facility] [address] [facility] [id number] [place] [address] 31 May, 2012 [facility] [address] [facility] [id number] [place] [address] 14 May, 2012 [facility] [address] [facility] [id number] [place] [address] May, [facility] [address] [facility] [id number] [place] [address] May, [facility] [address] [facility] [id number] [place] [address] Mar, [facility] [address] [facility] [id number] [place] [address] Mar, [facility] [address] [facility] [id number] [place] [address] February, [facility] [address] [facility] [id number] [place] [address] February, [facility] [address] [id number] [place] [address] 25 Jan, 2012 [facility] [address] [facility] [id number] [place] [address] 17 Jan, 2012 [facility] [address] [id number] [place] [address] 13 Jan, 2012 [facility] [address] [facility] [id number] [place] [address] 12 Jan, 2012 [facility] [address] [facility] [id number] [place] [address] Jan, [facility], [place] [id number] [place] [address] Nov, [facility] [place] [address] [id number] [place] [address] 15 Nov, 2011 [facility] [place] [address] [id number] [place] [address] Nov, [facility] [place] [address] [id number] [place] [address] Oct, [facility] [place] [address] [id number] [place] [address] Sep, [facility] [place] [id number] [place] [address] Sep, [facility] [place] [address] [facility] [id number] [place] [address] Sep, [facility] [place] [id number] [place] [address] Aug, [facility] [place] [address] [id number] [place] [address] Aug, [facility], [place] [id number] [place] [address] Jul, [facility], [place] [address] [facility] [id number] [place] [address] Jul, [facility] [place] [id number] [place] [address] Jun, [facility], [place] [address] [id number] [place] [address] Nov, [facility], [place] [id number] [place] [address] Aug, [facility], [place] [id number] [place] [address] Mar, [facility], [place] [address] [id number] [place] [address] Nov, IMMUNIZATIONS No Known Immunizations SOCIAL HISTORY [...]
--- OUTSIDE RECORDS SUMMARY | 2020-03-15 07:08 | XMS REPORT ---
Author Author Marleny Duke Organization [facility] Address [address] [place] [address] Care Team Providers Care Meter Supervisor Name Role Phone TAE Duke Unavailable PROBLEMS Type Condition ICD9-CM Code FMW51-WD Code Onset Dates Condition S tatus SNOMED Code Problem Essential tremor G25.0 Active 609 604399 Problem Mitral valve prolapse I34.1 Active 402885697 Problem Other chronic pain G89.29 Active 8 9128401 Problem Osteopenia of multiple sites M85.89 A ctive 169358331 Problem Major depressive disorder, recurrent episode, moderate deg ree F33.1 Active 03796996 Problem Morbid obesity due to excess calories E66.01 Active 427105196 Problem Family history of colon cancer Z80.0 Active 029496526 Problem Chronic obstructive pulmonary disease, unspecified COPD ty pe J44.9 Active 53491474 Problem Hx of fracture of left hip Z87.81 Act west 473441332 Problem Back pain with history of spinal surgery M54.9 Active [id number] ALLERGIES No Information ENCOUNTERS Encounter Location Date Diagnosis [place] [address] [address] 18 Dec, 2019 [facility] [address] [address] Dec, [facility] [address] [address] Nov, [facility] [address] [address] Oct, [facility] [address] [address] Oct, Major depressive disorder, recurrent epi sode, moderate degree F33.1 [facility] [address] [address] Oct, Lumbar radiculopathy, acute M54.16 [place] [address] [address] 17 Oct, 2019 [place] [address] [address] Oct, Back pain with history of spinal surgery M54.9 ; Major depressive disorder, recurrent episode, moderate degree F33.1 ; Osteopenia of multiple sites M85.89 ; Easy bruising R23.8 ; Morbid obesity due to excess calories E66.01 ; Sore throat J02.9 ; Cough R05 ; Therapeutic drug monitoring Z51.81 and Severe back pain M54.9 [place] [address] [address] Oct, Major depressive disorder, recurrent epi sode, moderate degree F33.1 [place] [address] [address] Sep, Lumbar radiculopathy, acute M54.16 [place] [address] [address] Sep, [address] [address] Sep, Laryngitis J04.0 ; Asymptomatic menopaus al state Z78.0 and Hx of fracture of left hip Z87.81 [place] [address] [address] Sep, Major depressive disorder, recurrent epi sode, moderate degree F33.1 [place] [address] [address] Sep, [place] [address] [address] Aug, [place] [address] [address] Aug, [place] [address] [address] Aug, Family history of colon cancer Z80.0 ; C hronic obstructive pulmonary disease, unspecified COPD type J44.9 ; Essential tremor G25.0 ; Mitral valve prolapse I34.1 ; Other chronic pain G89.29 ; Hx of fracture of left hip Z87.81 and Encounter for immunization Z23 [facility] [address] [id number] [place] [address] Aug, Major depressive disorder, recurrent epi sode, moderate degree F33.1 [address] [place] [address] Aug, Muscle spasm M62.838 ; Sever e back pain M54.9 and Hx of spinal surgery Z98.890 [address] [place] [address] Aug, [facility] [address] [facility] [id number] [place] [address] Aug, Sore throat J02.9 ; Cough R05 and Viral upper respiratory illness J06.9 [place] [address] [id number] [place] [address] Aug, Major depressive disorder, recurrent epi sode, moderate degree F33.1 [address] [place] [address] Jul, [address] [place] [address] Jul, [address] [place] [address] Jul, [address] [place] [address] Jul, [facility] [address] [id number] [place] [address] Jul, Major depressive disorder, recurrent epi sode, moderate degree F33.1 [facility] [address] [id number] [place] [address] Jul, [address] [place] [address] Jul, [facility] [address] [id number] [place] [address] Jul, Encounter for immunization Z23 [address] [place] [address] Jul, Restrictive airway disease J 98.4 [address] [place] [address] Jul, Screening for breast cancer Z12.39 [facility] [address] [place] [id number] [place] [address] Jul, Major depressive disorder, recurrent epi sode, moderate degree F33.1 [address] [place] [address] Jun, [address] [place] [address] Jun, [address] [place] [address] Jun, Shortness of breath R06.02 [address] [place] [address] Jun, Shortness of breath R06.02 [address] [place] [address] Jun, Shortness of breath R06.02 a nd Restrictive lung disease J98.4 [facility] [address] [id number] [place] [address] Jun, Major depressive disorder, recurrent epi sode, moderate degree F33.1 [address] [place] [address] Jun, [facility] [address] [id number] [place] [address] Jun, History of tobacco use Z87.891 ; Screeni ng for breast cancer Z12.39 and Trigger point M79.[address] [facility] [address] [place] [address] Jun, [address] [place] [address] Jun, Major depressive disorder, r ecurrent episode, moderate degree F33.1 ; Trigger point M79.10 ; History of tobacco use Z87.891 and Screening for breast cancer Z12.39 [place] [address] [place] [id number] [place] [address] Jun, Major depressive disorder, recurrent epi sode, moderate degree F33.1 [place] [address] [address] May, Major depressive disorder, recurrent epi sode, moderate degree F33.1 [address] [place] [address] May, Essential tremor G25.0 ; Can dida rash of groin B37.89 and History of hypertension Z86.[address] [facility] [place] [address] [place] [address] May, [address] [place] [address] May, [facility] [address] [place] [id number] [place] [address] May, Major depressive disorder, recurrent epi sode, moderate degree F33.1 [address] [place] [address] Apr, [facility] [place] [address] [facility] [id number] [place] [address] Apr, [facility] [place] [facility] [address] [place] [address] Mar, [facility] [place] [address] [place] [address] Mar, [facility] [place] [address] [place] [address] Mar, [facility] [place] [address] [place] [address] Mar, [facility] [place] [address] [place] [address] Mar, [facility] [place] [address] [facility] [id number] [place] [address] Mar, Spinal stenosis of lumbar region without neurogenic claudication M48.061 [facility] [place] [address] [facility] [id number] [place] [address] Mar, Therapeutic drug monitoring Z51.81 [facility] [place] [address] [place] [address] February, Therapeutic drug monitoring Z51.81 [facility] [place] [address] [place] [address] Jan, [facility] [place] [address] [place] [address] Jan, [facility] [place] [address] [place] [address] Jan, [facility] [place] [address] [place] [address] Dec, [facility] [place] [address] [place] [address] Dec, [facility] [place] [address] [place] [address] Dec, [facility] [place] [address] [place] [address] Nov, [facility] [place] [address] [place] [address] Nov, [facility] [address] [id number] [place] [id number] Sep, Dental examination Z01.20 [facility] [address] [id number] [place] [id number] 10 Jun, 2015 Dental examination V72.2 [facility] [place] [facility] [address] [id number] [place] [address] 14 Jan, 2015 [facility] [place] [facility] [address] [id number] [place] [address] Jan, [facility] [place] [facility] [address] [id number] [place] [address] Oct, [facility] [place] [facility] [address] [id number] [place] [address] Oct, [facility] [place] [facility] [address] [id number] [place] [address] Jul, [facility] [place] [facility] [address] [id number] [place] [address] Jul, [facility] [place] [facility] [address] [id number] [place] [address] Jun, [facility] [place] [facility] [address] [id number] [place] [address] Jun, [facility] [place] [facility] [address] [id number] [place] [address] May, [facility] [place] [facility] [address] [id number] [place] [address] May, [facility] [place] [facility] [address] [id number] [place] [address] May, [facility] [place] [facility] [address] [id number] [place] [address] May, [facility] [place] [facility] [address] [id number] [place] [address] May, [facility] [place] [facility] [address] [id number] [place] [address] May, [facility] [place] [facility] [address] [id number] [place] [address] May, [facility] [place] [facility] [address] [id number] [place] [address] May, [facility] [place] [facility] [address] [id number] [place] [address] 17 Apr, 2013 [facility] [place] [facility] [address] [id number] [place] [address] 17 Apr, 2013 [facility] [place] [facility] [address] [facility] [id number] [place] [address] 16 Apr, 2013 [facility] [place] [facility] [address] [facility] [id number] [place] [address] 16 Apr, 2013 [facility] [place] [facility] [address] [facility] [id number] [place] [address] 16 Apr, 2013 [facility] [place] [facility] [address] [facility] [id number] [place] [address] 16 Apr, 2013 [facility] [place] [facility] [address] [facility] [id number] [place] [address] 15 Apr, 2013 [facility] [place] [facility] [address] [id number] [place] [address] 15 Apr, 2013 [facility] [place] [facility] [address] [facility] [id number] [place] [address] 10 Apr, 2013 [facility] [place] [facility] [address] [facility] [id number] [place] [address] Apr, 2013 [facility] [place] [facility] [address] [id number] [place] [address] Apr, 2013 [facility] [place] [facility] [address] [id number] [place] [address] 05 Apr, 2013 [facility] [place] [facility] [address] [facility] [id number] [place] [address] Apr, 2013 [facility] [place] [facility] [address] [facility] [id number] [place] [address] Apr, 2013 [facility] [place] [facility] [address] [id number] [place] [address] Apr, 2013 [facility] [place] [facility] [address] [facility] [id number] [place] [address] Apr, 2013 [facility] [place] [facility] [address] [id number] [place] [address] Apr, [facility] [place] [facility] [address] [facility] [id number] [place] [address] Mar, [facility] [place] [facility] [address] [id number] [place] [address] Mar, [facility] [place] [facility] [address] [id number] [place] [address] Mar, [facility] [place] [facility] [address] [id number] [place] [address] Mar, [facility] [place] [facility] [address] [facility] [id number] [place] [address] Mar, [facility] [place] [facility] [address] [id number] [place] [address] Mar, [facility] [place] [facility] [address] [id number] [place] [address] Mar, [facility] [place] [facility] [address] [id number] [place] [address] Mar, [facility] [place] [facility] [address] [id number] [place] [address] Mar, [facility] [place] [facility] [address] [id number] [place] [address] Mar, [facility] [place] [facility] [address] [id number] [place] [address] Mar, [facility] [place] [facility] [address] [id number] [place] [address] Mar, [facility] [place] [facility] [address] [id number] [place] [address] February, [facility] [place] [facility] [address] [id number] [place] [address] February, [facility] [place] [facility] [address] [id number] [place] [address] February, [facility] [place] [facility] [address] [id number] [place] [address] February, [facility] [place] [facility] [address] [id number] [place] [address] February, [facility] [place] [facility] [address] [facility] [id number] [place] [address] February, [facility] [place] [facility] [address] [facility] [id number] [place] [address] February, [facility] [place] [facility] [address] [id number] [place] [address] February, [facility] [place] [facility] [address] [facility] [id number] [place] [address] February, [facility] [place] [facility] [address] [facility] [id number] [place] [address] February, [facility] [place] [facility] [address] [id number] [place] [address] February, [facility] [place] [facility] [address] [id number] [place] [address] February, [facility] [place] [facility] [address] [id number] [place] [address] Jan, [facility] [place] [facility] [address] [facility] [id number] [place] [address] Jan, [facility] [place] [facility] [address] [id number] [place] [address] Jan, [facility] [place] [facility] [address] [id number] [place] [address] Jan, [facility] [place] [facility] [address] [id number] [place] [address] Jan, [facility] [place] [facility] [address] [facility] [id number] [place] [address] Jan, [facility] [place] [facility] [address] [id number] [place] [address] Dec, [facility] [place] [facility] [address] [facility] [id number] [place] [address] Dec, [facility] [place] [facility] [address] [id number] [place] [address] Dec, [facility] [place] [facility] [address] [id number] [place] [address] Dec, [facility] [place] [facility] [address] [id number] [place] [address] Dec, [facility] [place] [facility] [address] [id number] [place] [address] Dec, [facility] [place] [facility] [address] [id number] [place] [address] Nov, [facility] [place] [facility] [address] [id number] [place] [address] Nov, [facility] [place] [facility] [address] [id number] [place] [address] Nov, [facility] [place] [facility] [address] [id number] [place] [address] Nov, [facility] [place] [facility] [address] [id number] [place] [address] Oct, [facility] [place] [facility] [address] [id number] [place] [address] Oct, [facility] [place] [facility] [address] [id number] [place] [address] Oct, [facility] [place] [facility] [address] [id number] [place] [address] Oct, [facility] [place] [facility] [address] [id number] [place] [address] Oct, [facility] [place] [facility] [address] [id number] [place] [address] Oct, [facility] [place] [facility] [address] [id number] [place] [address] Oct, [facility] [place] [facility] [address] [id number] [place] [address] Oct, [facility] [place] [facility] [address] [id number] [place] [address] Oct, [facility] [place] [facility] [address] [id number] [place] [address] 30 Sep, 2013 [facility] [place] [facility] [address] [facility] [id number] [place] [address] 30 Sep, 2013 [facility] [place] [facility] [address] [id number] [place] [address] Sep, [facility] [place] [facility] [address] [id number] [place] [address] Sep, [facility] [place] [facility] [address] [id number] [place] [address] 16 Sep, 2013 [facility] [place] [facility] [address] [id number] [place] [address] Sep, [facility] [place] [facility] [address] [id number] [place] [address] Sep, [facility] [place] [facility] [address] [id number] [place] [address] Aug, [facility] [place] [facility] [address] [id number] [place] [address] Aug, [facility] [place] [facility] [address] [id number] [place] [address] 28 Jul, 2013 [facility] [place] [facility] [address] [id number] [place] [address] 28 Jul, 2013 [facility] [place] [facility] [address] [id number] [place] [address] 14 Jul, 2013 [facility] [place] [facility] [address] [id number] [place] [address] 14 Jul, 2013 [facility] [place] [facility] [address] [id number] [place] [address] 12 Jul, 2013 [facility] [place] [facility] [address] [id number] [place] [address] 12 Jul, 2013 [facility] [place] [facility] [address] [id number] [place] [address] 25 Jun, 2013 [facility] [place] [facility] [address] [id number] [place] [address] 16 Jun, 2013 [facility] [place] [facility] [address] [id number] [place] [address] Jun, [facility] [place] [facility] [address] [id number] [place] [address] May, [facility] [place] [facility] [address] [id number] [place] [address] May, [facility] [place] [facility] [address] [id number] [place] [address] Apr, [facility] [place] [facility] [address] [id number] [place] [address] Apr, [facility] [place] [facility] [address] [id number] [place] [address] Apr, [facility] [place] [facility] [address] [id number] [place] [address] Mar, [facility] [place] [facility] [address] [id number] [place] [address] Mar, [facility] [place] [facility] [address] [id number] [place] [address] February, [facility] [place] [facility] [address] [id number] [place] [address] February, [facility] [place] [facility] [address] [id number] [place] [address] Jan, [facility] [place] [facility] [address] [id number] [place] [address] Jan, [facility] [place] [facility] [address] [id number] [place] [address] Dec, [facility] [place] [facility] [address] [id number] [place] [address] Nov, [facility] [place] [facility] [address] [id number] [place] [address] Nov, [facility] [address] [id number] [place] [address] Nov, [facility] [address] [id number] [place] [address] Oct, [facility] [address] [id number] [place] [address] 08 Aug, 2012 [facility] [address] [id number] [place] [address] Aug, [facility] [address] [id number] [place] [address] Aug, [facility] [address] [id number] [place] [address] Aug, [facility] [address] [id number] [place] [address] Jun, [facility] [address] [id number] [place] [address] Jun, [facility] [address] [id number] [place] [address] Jun, [facility] [address] [id number] [place] [address] Jun, [facility] [address] [id number] [place] [address] Jun, [facility] [address] [id number] [place] [address] May, [facility] [address] [id number] [place] [address] May, [facility] [address] [id number] [place] [address] May, [facility] [address] [id number] [place] [address] May, [facility] [address] [id number] [place] [address] Mar, [facility] [address] [id number] [place] [address] Mar, [facility] [address] [id number] [place] [address] February, [facility] [address] [id number] [place] [address] February, [facility] [address] [id number] [place] [address] 25 Jan, 2012 [facility] [address] [id number] [place] [address] 17 Jan, 2012 [facility] [address] [id number] [place] [address] 13 Jan, 2012 [facility] [address] [id number] [place] [address] 12 Jan, 2012 [facility] [address] [id number] [place] [address] Jan, [facility] [address] [id number] [place] [address] 20 Nov, 2011 [facility] [address] [id number] [place] [address] 15 Nov, 2011 [facility] [address] [id number] [place] [address] 10 Nov, 2011 [facility] [address] [id number] [place] [address] Oct, [facility] [address] [id number] [place] [address] 14 Sep, 2011 [facility] [address] [id number] [place] [address] 14 Sep, 2011 [facility] [address] [id number] [place] [address] Sep, [facility] [address] [id number] [place] [address] Aug, [facility] [address] [id number] [place] [address] Aug, [facility] [address] [id number] [place] [address] Jul, [facility] [address] [id number] [place] [address] Jul, [facility] [address] [id number] [place] [address] Jun, [facility] [address] [id number] [place] [address] Nov, [facility] [address] [id number] [place] [address] Aug, [facility] [address] [id number] [place] [address] Mar, [facility] [address] [id number] [place] [address] Nov, IMMUNIZATIONS No Known Immunizations SOCIAL HISTORY Never Assessed REASON FOR VISIT PLAN OF CARE VITAL SIGNS MEDICATIONS Unknown Medications RESULTS No Results PROCEDURES Procedure Date Ordered Result Body Site COMPUTER DX MAMMOGRAM ADD-ON May 13, 2014 US EXAM, BREAST(S) May 13, 2014 INSTRUCTIONS MEDICATIONS ADMINISTERED No Known Medications [...]
--- OUTSIDE RECORDS SUMMARY | 2020-03-15 07:08 | XMS REPORT ---
Author Author Marleny Duke Organization [facility] Address [address] [place] [address] Care Team Providers Care Manager Community Outreach Name Role Phone TAE Duke Unavailable PROBLEMS Type Condition ICD9-CM Code HZG73-XO Code Onset Dates Condition S tatus SNOMED Code Problem Essential tremor G25.0 Active 609 210685 Problem Mitral valve prolapse I34.1 Active 531887472 Problem Other chronic pain G89.29 Active 8 6478919 Problem Osteopenia of multiple sites M85.89 A ctive 560441247 Problem Major depressive disorder, recurrent episode, moderate deg ree F33.1 Active 74866736 Problem Morbid obesity due to excess calories E66.01 Active 544772903 Problem Family history of colon cancer Z80.0 Active 257918494 Problem Chronic obstructive pulmonary disease, unspecified COPD ty pe J44.9 Active 51627571 Problem Hx of fracture of left hip Z87.81 Act west 103581820 Problem Back pain with history of spinal surgery M54.9 Active [id number] ALLERGIES No Information ENCOUNTERS Encounter Location Date Diagnosis [place] [address] [address] 18 Dec, 2019 [facility] [address] [address] Dec, [facility] [address] [address] Nov, [facility] [address] [address] Oct, [facility] [address] [address] Oct, Major depressive disorder, recurrent epi sode, moderate degree F33.1 [facility] [address] [address] Oct, Lumbar radiculopathy, acute M54.16 [place] [address] [address] 17 Oct, 2019 [place] [address] [address] Oct, Back pain with history of spinal surgery M54.9 ; Major depressive disorder, recurrent episode, moderate degree F33.1 ; Osteopenia of multiple sites M85.89 ; Easy bruising R23.8 ; Morbid obesity due to excess calories E66.01 ; Sore throat J02.9 ; Cough R05 ; Therapeutic drug monitoring Z51.81 and Severe back pain M54.9 [place] [address] [address] Oct, Major depressive disorder, recurrent epi sode, moderate degree F33.1 [place] [address] [address] Sep, Lumbar radiculopathy, acute M54.16 [place] [address] [address] Sep, [address] [address] Sep, Laryngitis J04.0 ; Asymptomatic menopaus al state Z78.0 and Hx of fracture of left hip Z87.81 [place] [address] [address] Sep, Major depressive disorder, recurrent epi sode, moderate degree F33.1 [place] [address] [address] Sep, [place] [address] [address] Aug, [place] [address] [address] Aug, [place] [address] [address] Aug, Family history of colon cancer Z80.0 ; C hronic obstructive pulmonary disease, unspecified COPD type J44.9 ; Essential tremor G25.0 ; Mitral valve prolapse I34.1 ; Other chronic pain G89.29 ; Hx of fracture of left hip Z87.81 and Encounter for immunization Z23 [facility] [address] [id number] [place] [address] Aug, Major depressive disorder, recurrent epi sode, moderate degree F33.1 [address] [place] [address] Aug, Muscle spasm M62.838 ; Sever e back pain M54.9 and Hx of spinal surgery Z98.890 [address] [place] [address] Aug, [facility] [address] [facility] [id number] [place] [address] Aug, Sore throat J02.9 ; Cough R05 and Viral upper respiratory illness J06.9 [place] [address] [id number] [place] [address] Aug, Major depressive disorder, recurrent epi sode, moderate degree F33.1 [address] [place] [address] Jul, [address] [place] [address] Jul, [address] [place] [address] Jul, [address] [place] [address] Jul, [facility] [address] [id number] [place] [address] Jul, Major depressive disorder, recurrent epi sode, moderate degree F33.1 [facility] [address] [id number] [place] [address] Jul, [address] [place] [address] Jul, [facility] [address] [id number] [place] [address] Jul, Encounter for immunization Z23 [address] [place] [address] Jul, Restrictive airway disease J 98.[address] [place] [address] Jul, Screening for breast cancer Z12.39 [facility] [address] [place] [id number] [place] [address] Jul, Major depressive disorder, recurrent epi sode, moderate degree F33.1 [address] [place] [address] Jun, [address] [place] [address] Jun, [address] [place] [address] Jun, Shortness of breath R06.02 [address] [place] [address] Jun, Shortness of breath R06.02 [address] [place] [address] Jun, Shortness of breath R06.02 a nd Restrictive lung disease J98.4 [facility] [address] [id number] [place] [address] Jun, Major depressive disorder, recurrent epi sode, moderate degree F33.1 [address] [place] [address] Jun, [facility] [address] [id number] [place] [address] Jun, History of tobacco use Z87.891 ; Screeni ng for breast cancer Z12.39 and Trigger point M79.10 [facility] [place] [address] [place] [address] Jun, [address] [place] [address] Jun, Major depressive disorder, r ecurrent episode, moderate degree F33.1 ; Trigger point M79.10 ; History of tobacco use Z87.891 and Screening for breast cancer Z12.39 [place] [address] [place] [id number] [place] [address] Jun, Major depressive disorder, recurrent epi sode, moderate degree F33.1 [place] [address] [address] May, Major depressive disorder, recurrent epi sode, moderate degree F33.1 [address] [place] [address] May, Essential tremor G25.0 ; Can dida rash of groin B37.89 and History of hypertension Z86.79 [facility] [place] [address] [place] [address] May, [address] [place] [address] May, [facility] [address] [place] [id number] [place] [address] May, Major depressive disorder, recurrent epi sode, moderate degree F33.1 [address] [place] [address] Apr, [facility] [place] [address] [facility] [id number] [place] [address] Apr, [facility] [place] [facility] [address] [place] [address] Mar, [facility] [place] [address] [place] [address] Mar, [facility] [place] [address] [place] [address] Mar, [facility] [place] [address] [place] [address] Mar, [facility] [place] [address] [place] [address] Mar, [facility] [place] [address] [facility] [id number] [place] [address] Mar, Spinal stenosis of lumbar region without neurogenic claudication M48.061 [facility] [place] [address] [facility] [id number] [place] [address] Mar, Therapeutic drug monitoring Z51.81 [facility] [place] [address] [place] [address] February, Therapeutic drug monitoring Z51.81 [facility] [place] [address] [place] [address] Jan, [facility] [place] [address] [place] [address] Jan, [facility] [place] [address] [place] [address] Jan, [facility] [place] [address] [place] [address] Dec, [facility] [place] [address] [place] [address] Dec, [facility] [place] [address] [place] [address] Dec, [facility] [place] [address] [place] [address] Nov, [facility] [place] [address] [place] [address] Nov, [facility] [address] [id number] [place] [id number] Sep, Dental examination Z01.20 [facility] [address] [id number] [place] [address] 10 Jun, 2015 Dental examination V72.2 [facility] [place] [facility] [address] [id number] [place] [address] 14 Jan, 2015 [facility] [place] [facility] [address] [id number] [place] [address] Jan, [facility] [place] [facility] [address] [id number] [place] [address] Oct, [facility] [place] [facility] [address] [id number] [place] [address] Oct, [facility] [place] [facility] [address] [id number] [place] [address] Jul, [facility] [place] [facility] [address] [id number] [place] [address] Jul, [facility] [place] [facility] [address] [id number] [place] [address] Jun, [facility] [place] [facility] [address] [id number] [place] [address] Jun, [facility] [place] [facility] [address] [id number] [place] [address] May, [facility] [place] [facility] [address] [id number] [place] [address] May, [facility] [place] [facility] [address] [id number] [place] [address] May, [facility] [place] [facility] [address] [id number] [place] [address] May, [facility] [place] [facility] [address] [id number] [place] [address] May, [facility] [place] [facility] [address] [id number] [place] [address] May, [facility] [place] [facility] [address] [id number] [place] [address] May, [facility] [place] [facility] [address] [id number] [place] [address] May, [facility] [place] [facility] [address] [id number] [facility] [address] 17 Apr, 2013 [facility] [place] [facility] [address] [id number] [facility] [address] 17 Apr, 2013 [facility] [place] [facility] [address] [facility] [id number] [facility] [address] 16 Apr, 2013 [facility] [place] [facility] [address] [facility] [id number] [place] [address] 16 Apr, 2013 [facility] [place] [facility] [address] [facility] [id number] [place] [address] 16 Apr, 2013 [facility] [place] [facility] [address] [facility] [id number] [place] [address] 16 Apr, 2013 [facility] [place] [facility] [address] [facility] [id number] [place] [address] 15 Apr, 2013 [facility] [place] [facility] [address] [id number] [place] [address] 15 Apr, 2013 [facility] [place] [facility] [address] [facility] [id number] [place] [address] 10 Apr, 2013 [facility] [place] [facility] [address] [facility] [id number] [place] [address] Apr, 2013 [facility] [place] [facility] [address] [id number] [place] [address] Apr, 2013 [facility] [place] [facility] [address] [id number] [place] [address] 05 Apr, 2013 [facility] [place] [facility] [address] [facility] [id number] [place] [address] Apr, 2013 [facility] [place] [facility] [address] [facility] [id number] [place] [address] Apr, 2013 [facility] [place] [facility] [address] [id number] [place] [address] Apr, 2013 [facility] [place] [facility] [address] [facility] [id number] [place] [address] Apr, 2013 [facility] [place] [facility] [address] [id number] [place] [address] Apr, [facility] [place] [facility] [address] [facility] [id number] [place] [address] Mar, [facility] [place] [facility] [address] [id number] [place] [address] Mar, [facility] [place] [facility] [address] [id number] [place] [address] Mar, [facility] [place] [facility] [address] [id number] [place] [address] Mar, [facility] [place] [facility] [address] [facility] [id number] [place] [address] Mar, [facility] [place] [facility] [address] [id number] [place] [address] Mar, [facility] [place] [facility] [address] [id number] [place] [address] Mar, [facility] [place] [facility] [address] [id number] [place] [address] Mar, [facility] [place] [facility] [address] [id number] [place] [address] Mar, [facility] [place] [facility] [address] [id number] [place] [address] Mar, [facility] [place] [facility] [address] [id number] [place] [address] Mar, [facility] [place] [facility] [address] [id number] [place] [address] Mar, [facility] [place] [facility] [address] [id number] [place] [address] February, [facility] [place] [facility] [address] [id number] [place] [address] February, [facility] [place] [facility] [address] [id number] [place] [address] February, [facility] [place] [facility] [address] [id number] [place] [address] February, [facility] [place] [facility] [address] [id number] [place] [address] February, [facility] [place] [facility] [address] [facility] [id number] [facility] [address] February, [facility] [place] [facility] [address] [facility] [id number] [facility] [address] February, [facility] [place] [facility] [address] [id number] [facility] [address] February, [facility] [place] [facility] [address] [facility] [id number] [place] [address] February, [facility] [place] [facility] [address] [facility] [id number] [place] [address] February, [facility] [place] [facility] [address] [id number] [facility] [address] February, [facility] [place] [facility] [address] [id number] [place] [address] February, [facility] [place] [facility] [address] [id number] [place] [address] Jan, [facility] [place] [facility] [address] [facility] [id number] [facility] [address] Jan, [facility] [place] [facility] [address] [id number] [place] [address] Jan, [facility] [place] [facility] [address] [id number] [place] [address] Jan, [facility] [place] [facility] [address] [id number] [place] [address] Jan, [facility] [place] [facility] [address] [facility] [id number] [facility] [address] Jan, [facility] [place] [facility] [address] [id number] [place] [address] Dec, [facility] [place] [facility] [address] [facility] [id number] [facility] [address] Dec, [facility] [place] [facility] [address] [id number] [facility] [address] Dec, [facility] [place] [facility] [address] [id number] [place] [address] Dec, [facility] [place] [facility] [address] [id number] [place] [address] Dec, [facility] [place] [facility] [address] [id number] [place] [address] Dec, [facility] [place] [facility] [address] [id number] [place] [address] Nov, [facility] [place] [facility] [address] [id number] [place] [address] Nov, [facility] [place] [facility] [address] [id number] [place] [address] Nov, [facility] [place] [facility] [address] [id number] [place] [address] Nov, [facility] [place] [facility] [address] [id number] [place] [address] Oct, [facility] [place] [facility] [address] [id number] [place] [address] Oct, [facility] [place] [facility] [address] [id number] [place] [address] Oct, [facility] [place] [facility] [address] [id number] [place] [address] Oct, [facility] [place] [facility] [address] [id number] [place] [address] Oct, [facility] [place] [facility] [address] [id number] [place] [address] Oct, [facility] [place] [facility] [address] [id number] [place] [address] Oct, [facility] [place] [facility] [address] [id number] [place] [address] Oct, [facility] [place] [facility] [address] [id number] [place] [address] Oct, [facility] [place] [facility] [address] [id number] [place] [address] 30 Sep, 2013 [facility] [place] [facility] [address] [facility] [id number] [place] [address] 30 Sep, 2013 [facility] [place] [facility] [address] [id number] [place] [address] Sep, [facility] [place] [facility] [address] [id number] [place] [address] Sep, [facility] [place] [facility] [address] [id number] [place] [address] 16 Sep, 2013 [facility] [place] [facility] [address] [id number] [place] [address] Sep, [facility] [place] [facility] [address] [id number] [place] [address] Sep, [facility] [place] [facility] [address] [id number] [place] [address] Aug, [facility] [place] [facility] [address] [id number] [place] [address] Aug, [facility] [place] [facility] [address] [id number] [place] [address] 28 Jul, 2013 [facility] [place] [facility] [address] [id number] [place] [address] 28 Jul, 2013 [facility] [place] [facility] [address] [id number] [place] [address] 14 Jul, 2013 [facility] [place] [facility] [address] [id number] [place] [address] 14 Jul, 2013 [facility] [place] [facility] [address] [id number] [place] [address] 12 Jul, 2013 [facility] [place] [facility] [address] [id number] [place] [address] 12 Jul, 2013 [facility] [place] [facility] [address] [id number] [place] [address] 25 Jun, 2013 [facility] [place] [facility] [address] [id number] [place] [address] 16 Jun, 2013 [facility] [place] [facility] [address] [id number] [place] [address] Jun, [facility] [place] [facility] [address] [id number] [place] [address] May, [facility] [place] [facility] [address] [id number] [place] [address] May, [facility] [address] [id number] [place] [address] Apr, [facility] [address] [id number] [place] [address] Apr, [facility] [address] [id number] [place] [address] Apr, [facility] [address] [id number] [place] [address] Mar, [facility] [address] [id number] [place] [address] Mar, [facility] [address] [id number] [place] [address] February, [facility] [address] [id number] [place] [address] February, [facility] [address] [id number] [place] [address] Jan, [facility] [address] [id number] [place] [address] Jan, [facility] [address] [id number] [place] [address] Dec, [facility] [address] [id number] [place] [address] Nov, [facility] [id number] [place] [address] Nov, [facility] [address] [id number] [place] [address] Nov, [facility] [address] [id number] [place] [address] Oct, [facility] [address] [id number] [place] [address] 08 Aug, 2012 [facility] [address] [id number] [place] [address] Aug, [facility] [address] [id number] [place] [address] Aug, [facility] [address] [id number] [place] [address] Aug, [facility] [address] [id number] [place] [address] Jun, [facility] [address] [id number] [place] [address] Jun, [facility] [address] [id number] [place] [address] Jun, [facility] [address] [id number] [place] [address] Jun, [facility] [address] [id number] [place] [address] Jun, [facility] [address] [id number] [place] [address] May, [facility] [address] [id number] [place] [address] May, [facility] [address] [id number] [place] [address] May, [facility] [address] [id number] [place] [address] May, [facility] [address] [id number] [place] [address] Mar, [facility] [address] [id number] [place] [address] Mar, [facility] [address] [id number] [place] [address] February, [facility] [address] [id number] [place] [address] February, [facility] [address] [id number] [facility] [address] 25 Jan, 2012 [facility] [address] [id number] [place] [address] 17 Jan, 2012 [facility] [address] [id number] [place] [address] 13 Jan, 2012 [facility] [address] [id number] [place] [address] 12 Jan, 2012 [facility] [address] [id number] [place] [address] Jan, [facility] [address] [id number] [place] [address] 20 Nov, 2011 [facility] [address] [id number] [place] [address] 15 Nov, 2011 [facility] [address] [id number] [place] [address] 10 Nov, 2011 [facility] [address] [id number] [place] [address] Oct, [facility] [address] [id number] [place] [address] 14 Sep, 2011 [facility] [address] [id number] [place] [address] 14 Sep, 2011 [facility] [address] [id number] [place] [address] Sep, [facility] [address] [id number] [place] [address] Aug, [facility] [address] [id number] [place] [address] Aug, [facility] [address] [id number] [place] [address] Jul, [facility] [address] [id number] [place] [address] Jul, [facility] [address] [id number] [place] [address] Jun, [facility] [address] [id number] [place] [address] Nov, [facility] [address] [id number] [place] [address] Aug, [facility] [address] [id number] [place] [address] Mar, [facility] [address] [facility] [id number] [place] [address] Nov, IMMUNIZATIONS No Known Immunizations SOCIAL HISTORY [...]
--- OUTSIDE RECORDS SUMMARY | 2020-03-15 07:08 | XMS REPORT ---
Author Author Marleny DIAZ Organization [facility] Address [address] [place] [address] Care Team Providers Care Engine Room Helper Name Role Phone LIVE DIAZ Unavailable PROBLEMS Type Condition ICD9-CM Code [id number] Code Onset Dates Condition S tatus SNOMED Code Problem Essential tremor G25.0 Active 609 964319 Problem Mitral valve prolapse I34.1 Active 169647565 Problem Other chronic pain G89.29 Active 8 8523178 Problem Osteopenia of multiple sites M85.89 A ctive 964258181 Problem Major depressive disorder, recurrent episode, moderate deg ree F33.1 Active 43647651 Problem Morbid obesity due to excess calories E66.01 Active 580593912 Problem Family history of colon cancer Z80.0 Active 127789068 Problem Chronic obstructive pulmonary disease, unspecified COPD ty pe J44.9 Active 81294976 Problem Hx of fracture of left hip Z87.81 Act west 910222401 Problem Back pain with history of spinal surgery M54.9 Active [id number] ALLERGIES No Information ENCOUNTERS Encounter Location Date Diagnosis [place] [address] [address] Nov, [place] [address] [address] Oct, [place] [address] [address] Oct, [place] [address] [address] 15 Oct, 2019 Back pain with history of spinal surgery M54.9 ; Major depressive disorder, recurrent episode, moderate degree F33.1 ; Osteopenia of multiple sites M85.89 ; Easy bruising R23.8 ; Morbid obesity due to excess calories E66.01 ; Sore throat J02.9 ; Cough R05 ; Therapeutic drug monitoring Z51.81 and Severe back pain M54.9 [place] [address] [address] 07 Oct, 2019 Major depressive disorder, recurrent epi sode, moderate degree F33.1 [place] [address] [address] Sep, Lumbar radiculopathy, acute M54.16 [place] [address] [address] Sep, [place] [address] [address] Sep, Laryngitis J04.0 ; Asymptomatic menopaus al state Z78.0 and Hx of fracture of left hip Z87.81 [place] [address] [address] Sep, Major depressive disorder, recurrent epi sode, moderate degree F33.1 [place] [address] [address] Sep, [place] [address] [address] Aug, [place] [address] [address] Aug, [place] [address] [address] Aug, Family history of colon cancer Z80.0 ; C hronic obstructive pulmonary disease, unspecified COPD type J44.9 ; Essential tremor G25.0 ; Mitral valve prolapse I34.1 ; Other chronic pain G89.29 ; Hx of fracture of left hip Z87.81 and Encounter for immunization Z23 [place] [address] [address] Aug, Major depressive disorder, recurrent epi sode, moderate degree F33.1 [address] [place] [address] Aug, Muscle spasm M62.838 ; Sever e back pain M54.9 and Hx of spinal surgery Z98.[address] [place] [address] Aug, [facility] [address] [facility] [id number] [place] [address] Aug, Sore throat J02.9 ; Cough R05 and Viral upper respiratory illness J06.9 [facility] [address] [id number] [place] [address] Aug, Major depressive disorder, recurrent epi sode, moderate degree F33.[address] [place] [address] Jul, [address] [place] [address] Jul, [address] [place] [address] Jul, [address] [place] [address] Jul, [facility] [address] [id number] [place] [address] Jul, Major depressive disorder, recurrent epi sode, moderate degree F33.1 [facility] [address] [id number] [place] [address] Jul, [address] [place] [address] Jul, [facility] [address] [id number] [place] [address] Jul, Encounter for immunization Z23 [address] [place] [address] Jul, Restrictive airway disease J 98.[address] [place] [address] Jul, Screening for breast cancer Z12.39 [place] [address] [place] [id number] [place] [address] Jul, Major depressive disorder, recurrent epi sode, moderate degree F33.1 [address] [place] [address] Jun, [address] [place] [address] Jun, [place] [address] [place] [address] Jun, Shortness of breath R06.02 [place] [address] [place] [address] Jun, Shortness of breath R06.02 [place] [address] [place] [address] Jun, Shortness of breath R06.02 a nd Restrictive lung disease J98.4 [facility] [address] [place] [id number] [place] [address] Jun, Major depressive disorder, recurrent epi sode, moderate degree F33.1 [place] [address] [place] [address] Jun, [facility] [address] [id number] [place] [address] 18 Jun, 2019 History of tobacco use Z87.891 ; Screeni ng for breast cancer Z12.39 and Trigger point M79.10 [place] [address] [place] [address] Jun, [place] [address] [place] [address] Jun, Major depressive disorder, r ecurrent episode, moderate degree F33.1 ; Trigger point M79.10 ; History of tobacco use Z87.891 and Screening for breast cancer Z12.39 [facility] [address] [place] [id number] [place] [address] Jun, Major depressive disorder, recurrent epi sode, moderate degree F33.1 [place] [address] [id number] [place] [address] May, Major depressive disorder, recurrent epi sode, moderate degree F33.1 [facility] [address] [place] [address] May, Essential tremor G25.0 ; Can dida rash of groin B37.89 and History of hypertension Z86.79 [facility] [address] [place] [address] May, [facility] [address] [place] [address] May, [facility] [address] [id number] [place] [address] May, Major depressive disorder, recurrent epi sode, moderate degree F33.1 [facility] [address] [place] [address] Apr, [facility] [place] [address] [id number] [place] [address] Apr, [facility] [address] [place] [address] Mar, [facility] [address] [place] [address] Mar, [facility] [address] [place] [address] Mar, [facility] [address] [place] [address] Mar, [facility] [address] [place] [address] Mar, [facility] [place] [address] [id number] [place] [address] Mar, Spinal stenosis of lumbar region without neurogenic claudication M48.061 [facility] [place] [address] [facility] [id number] [place] [address] Mar, Therapeutic drug monitoring Z51.81 [facility] [facility] [address] [place] [address] February, Therapeutic drug monitoring Z51.81 [facility] [facility] [address] [place] [address] Jan, [facility] [address] [place] [address] Jan, [facility] [address] [place] [address] Jan, [facility] [place] [facility] [address] [place] [address] Dec, [facility] [place] [facility] [address] [place] [address] Dec, [facility] [place] [facility] [address] [place] [address] Dec, [facility] [address] [place] [address] Nov, [facility] [address] [place] [address] Nov, [facility] [address] [id number] Sep, Dental examination Z01.20 [facility] [address] [place] [id number] [place] [id number] 10 Jun, 2015 Dental examination V72.2 [facility] [address] [place] [id number] [place] [address] 14 Jan, 2015 [facility] [address] [place] [id number] [place] [address] Jan, [facility] [address] [place] [id number] [place] [address] Oct, [facility] [address] [place] [id number] [place] [address] Oct, [facility] [address] [address] Jul, [facility] [place] [facility] [address] [facility] [id number] [place] [address] Jul, [facility] [place] [facility] [address] [facility] [place] [id number] [place] [address] Jun, [facility] [place] [facility] [address] [facility] [place]] [id number] [place] [address] Jun, 2013 [facility] [place] [facility] [address] [facility] [place]] [id number] [place] [address] May, [facility] [place] [facility] [address] [facility] [place]] [id number] [place] [address] May, [facility] [place] [facility] [address] [id number] [place] [address] May, [facility] [place] [facility] [address] [id number] [place] [address] May, 2013 [facility] [place] [facility] [address] [id number] [place] [address] May, [facility] [place] [facility] [address] [facility] [place]] [id number] [place] [address] May, [facility] [place] [facility] [address] [id number] [place] [address] May, [facility] [place] [facility] [address] [id number] [place] [address] May, [facility] [place] [facility] [address] [id number] [place] [address] Apr, 2013 [facility] [place] [facility] [address] [facility] [place]] [id number] [place] [address] Apr, 2013 [facility] [place] [facility] [address] [facility] [place]] [id number] [place] [address] Apr, 2013 [facility] [place] [facility] [address] [facility] [place]] [id number] [place] [address] Apr, 2013 [facility] [place] [facility] [address] [id number] [place] [address] Apr, 2013 [facility] [place] [facility] [address] [facility] 2] [id number] [place] [address] 16 Apr, 2013 [facility] [place] [facility] [address] [id number] [place] [address] 15 Apr, 2013 [facility] [place] [facility] [address] [facility]] [id number] [place] [address] Apr, 2013 [facility] [place] [facility] [address] [id number] [place] [address] Apr, 2013 [facility] [place] [facility] [address] [facility] [place]] [id number] [place] [address] Apr, 2013 [facility] [place] [facility] [address] [facility]] [id number] [place] [address] Apr, 2013 [facility] [place] [facility] [address] [id number] [place] [address] Apr, 2013 [facility] [place] [facility] [address] [id number] [place] [address] Apr, 2013 [facility] [place] [facility] [address] [id number] [place] [address] Apr, 2013 [facility] [place] [facility] [address] [facility] [place]] [id number] [place] [address] Apr, [facility] [place] [facility] [address] [id number] [place] [address] Apr, 2013 [facility] [place] [facility] [address] [id number] [place] [address] Apr, 2013 [facility] [place] [facility] [address] [id number] [place] [address] Mar, [facility] [place] [facility] [address] [facility] [place]] [id number] [place] [address] Mar, [facility] [place] [facility] [address] [id number] [place] [address] Mar, [facility] [place] [facility] [address] [id number] [place] [address] Mar, [facility] [place] [facility] [address] [id number] [place] [address] 13 Mar, 2014 [facility] [place] [facility] [address] [id number] [place] [address] Mar, [facility] [place] [facility] [address] [id number] [place] [address] Mar, [facility] [place] [facility] [address] [id number] [place] [address] Mar, [facility] [place] [facility] [address] [id number] [place] [address] Mar, [facility] [place] [facility] [address] [id number] [place] [address] Mar, [facility] [place] [facility] [address] [id number] [place] [address] Mar, [facility] [place] [facility] [address] [id number] [place] [address] Mar, [facility] [place] [facility] [address] [id number] [place] [address] February, [facility] [place] [facility] [address] [id number] [place] [address] February, [facility] [place] [facility] [address] [id number] [place] [address] February, [facility] [place] [facility] [address] [id number] [place] [address] February, [facility] [place] [facility] [address] [id number] [place] [address] February, [facility] [place] [facility] [address] [id number] [place] [address] February, [facility] [place] [facility] [address] [id number] [place] [address] February, [facility] [place] [facility] [address] [id number] [place] [address] February, [facility] [place] [facility] [address] [id number] [place] [address] February, [facility] [place] [facility] [address] [id number] [place] [address] February, [facility] [place] [facility] [address] [facility]] [id number] [place] [address] February, [facility] [place] [facility] [address] [facility]] [id number] [place] [address] February, [facility] [place] [facility] [address] [id number] [place] [address] Jan, [facility] [place] [facility] [address] [id number] [place] [address] Jan, [facility] [place] [facility] [address] [facility]] [id number] [place] [address] Jan, [facility] [place] [facility] [address] [id number] [place] [address] Jan, [facility] [place] [facility] [address] [id number] [place] [address] Jan, [facility] [place] [facility] [address] [id number] [place] [address] Jan, [facility] [place] [facility] [address] [id number] [place] [address] Dec, [facility] [place] [facility] [address] [id number] [place] [address] Dec, [facility] [place] [facility] [address] [id number] [place] [address] Dec, [facility] [place] [facility] [address] [id number] [place] [address] Dec, [facility] [place] [facility] [address] [id number] [place] [address] Dec, [facility] [place] [facility] [address] [id number] [place] [address] Dec, [facility] [place] [facility] [address] [id number] [place] [address] Nov, [facility] [place] [facility] [address] [id number] [place] [address] Nov, [facility] [place] [facility] [address] [id number] [place] [address] 14 Nov, 2013 [facility] [place] [facility] [address] [id number] [place] [address] 14 Nov, 2013 [facility] [place] [facility] [address] [id number] [place] [address] Oct, [facility] [place] [facility] [address] [id number] [place] [address] Oct, [facility] [place] [facility] [address] [id number] [place] [address] Oct, [facility] [place] [facility] [address] [id number] [place] [address] Oct, [facility] [place] [facility] [address] [id number] [place] [address] Oct, [facility] [place] [facility] [address] [id number] [place] [address] Oct, [facility] [place] [facility] [address] [id number] [place] [address] Oct, [facility] [place] [facility] [address] [id number] [place] [address] Oct, [facility] [place] [facility] [address] [id number] [place] [address] Oct, [facility] [place] [facility] [address] [id number] [place] [address] Sep, [facility] [place] [facility] [address] [id number] [place] [address] 30 Sep, 2013 [facility] [place] [facility] [address] [id number] [place] [address] Sep, [facility] [place] [facility] [address] [id number] [place] [address] Sep, [facility] [place] [facility] [address] [id number] [place] [address] 16 Sep, 2013 [facility] [place] [facility] [address] [id number] [place] [address] Sep, [facility] [place] [facility] [address] [id number] [place] [address] Sep, [facility] [place] [facility] [address] [id number] [place] [address] Aug, [facility] [place] [facility] [address] [id number] [place] [address] Aug, [facility] [place] [facility] [address] [id number] [place] [address] Jul, [facility] [place] [facility] [address] [id number] [place] [address] 28 Jul, 2013 [facility] [place] [facility] [address] [id number] [place] [address] 14 Jul, 2013 [facility] [place] [facility] [address] [id number] [place] [address] 14 Jul, 2013 [facility] [place] [facility] [address] [id number] [place] [address] Jul, [facility] [place] [facility] [address] [id number] [place] [address] Jul, [facility] [place] [facility] [address] [id number] [place] [address] 25 Jun, 2013 [facility] [place] [facility] [address] [id number] [place] [address] 16 Jun, 2013 [facility] [place] [facility] [address] [id number] [place] [address] 13 Jun, 2013 [facility] [place] [facility] [address] [id number] [place] [address] 30 May, 2013 [facility] [place] [facility] [address] [id number] [place] [address] May, [facility] [place] [facility] [address] [id number] [place] [address] Apr, [facility] [place] [facility] [address] [id number] [place] [address] Apr, [facility] [place] [facility] [address] [id number] [place] [address] Apr, [facility] [place] [facility] [address] [id number] [place] [address] Mar, [facility] [place] [facility] [address] [id number] [place] [address] Mar, [facility] [place] [facility] [address] [id number] [place] [address] February, [facility] [place] [facility] [address] [id number] [place] [address] February, [facility] [place] [facility] [address] [id number] [place] [address] Jan, [facility] [place] [facility] [address] [id number] [place] [address] Jan, [facility] [place] [facility] [address] [id number] [place] [address] Dec, [facility] [place] [facility] [id number] [place] [address] Nov, [facility] [place] [facility] [address] [id number] [place] [address] Nov, [facility] [place] [facility] [address] [id number] [place] [address] Nov, [facility] [place] [facility] [address] [id number] [place] [address] Oct, [facility] [place] [facility] [id number] [place] [address] Aug, [facility] [place] [facility] [address] [id number] [place] [address] Aug, [facility] [place] [facility] [address] [id number] [place] [address] Aug, [facility] [place] [facility] [address] [id number] [place] [address] Aug, [facility] [place] [facility] [address] [id number] [place] [address] Jun, [facility] [place] [facility] [id number] [place] [address] 10 Jun, 2012 [facility] [place] [facility] [address] [id number] [place] [address] 08 Jun, 2012 [facility] [place] [facility] [address] [id number] [place] [address] 07 Jun, 2012 [facility] [place] [facility] [address] [id number] [place] [address] 05 Jun, 2012 [facility] [place] [facility] [address] [id number] [place] [address] 31 May, 2012 [facility] [place] [facility] [address] [id number] [place] [address] 14 May, 2012 [facility] [place] [facility] [address] [id number] [place] [address] May, [facility] [place] [facility] [address] [id number] [place] [address] May, [facility] [place] [facility] [address] [id number] [place] [address] Mar, [facility] [place] [facility] [address] [id number] [place] [address] Mar, [facility] [place] [facility] [address] [id number] [place] [address] February, [facility] [place] [facility] [address] [id number] [place] [address] February, [facility] [place] [facility] [address] [id number] [place] [address] 25 Jan, 2012 [facility] [place] [facility] [address] [id number] [place] [address] 17 Jan, 2012 [facility] [place] [facility] [address] [id number] [place] [address] 13 Jan, 2012 [facility] [place] [facility] [address] [id number] [place] [address] 12 Jan, 2012 [facility] [place] [facility] [address] [id number] [place] [address] Jan, [facility] [address] [id number] [place] [address] Nov, [facility] [address] [id number] [place] [address] 15 Nov, 2011 [facility] [address] [id number] [place] [address] Nov, [facility] [address] [id number] [place] [address] Oct, [facility] [address] [id number] [place] [address] Sep, [facility] [id number] [place] [address] Sep, [facility] [address] [id number] [place] [address] Sep, [facility] [id number] [place] [address] Aug, [facility] [address] [id number] [place] [address] Aug, [facility] [id number] [place] [address] Jul, [facility] [address] [id number] [place] [address] Jul, [facility] [id number] [place] [address] Jun, [facility] [address] [id number] [place] [address] Nov, [facility] [id number] [place] [address] Aug, [facility] [id number] [place] [address] Mar, [facility] [address] [id number] [place] [address] Nov, IMMUNIZATIONS No Known Immunizations SOCIAL HISTORY [...]
--- OUTSIDE RECORDS SUMMARY | 2020-03-15 07:09 | XMS REPORT ---
Author Author Marleny Duke Organization [facility] Address [address] [place] [address] Care Team Providers Care Electrophysiologist Name Role Phone TAE Duke Unavailable PROBLEMS Type Condition ICD9-CM Code UML43-ZS Code Onset Dates Condition S tatus SNOMED Code Problem Essential tremor G25.0 Active 609 663322 Problem Mitral valve prolapse I34.1 Active 577085558 Problem Other chronic pain G89.29 Active 8 4389693 Problem Osteopenia of multiple sites M85.89 A ctive 235709457 Problem Major depressive disorder, recurrent episode, moderate deg ree F33.1 Active 65216091 Problem Morbid obesity due to excess calories E66.01 Active 336734931 Problem Family history of colon cancer Z80.0 Active 670309985 Problem Chronic obstructive pulmonary disease, unspecified COPD ty pe J44.9 Active 24513238 Problem Hx of fracture of left hip Z87.81 Act west 441964614 Problem Back pain with history of spinal surgery M54.9 Active [id number] ALLERGIES No Information ENCOUNTERS Encounter Location Date Diagnosis [place] [address] [address] Nov, [place] [address] [address] Oct, [place] [address] [address] Oct, [place] [address] [address] 15 Oct, 2019 Back pain with history of spinal surgery M54.9 ; Major depressive disorder, recurrent episode, moderate degree F33.1 ; Osteopenia of multiple sites M85.89 ; Easy bruising R23.8 ; Morbid obesity due to excess calories E66.01 ; Sore throat J02.9 ; Cough R05 ; Therapeutic drug monitoring Z51.81 and Severe back pain M54.9 [place] [address] [address] Oct, Major depressive disorder, recurrent epi sode, moderate degree F33.1 [place] [address] [address] Sep, Lumbar radiculopathy, acute M54.16 [place] [address] [address] Sep, [place] [address] [address] Sep, Laryngitis J04.0 ; Asymptomatic menopaus al state Z78.0 and Hx of fracture of left hip Z87.81 [place] [address] [address] Sep, Major depressive disorder, recurrent epi sode, moderate degree F33.1 [place] [address] [address] Sep, [place] [address] [address] Aug, [place] [address] [address] Aug, [place] [address] [address] Aug, Family history of colon cancer Z80.0 ; C hronic obstructive pulmonary disease, unspecified COPD type J44.9 ; Essential tremor G25.0 ; Mitral valve prolapse I34.1 ; Other chronic pain G89.29 ; Hx of fracture of left hip Z87.81 and Encounter for immunization Z23 [place] [address] [address] Aug, Major depressive disorder, recurrent epi sode, moderate degree F33.[address] [place] [address] Aug, Muscle spasm M62.838 ; Sever e back pain M54.9 and Hx of spinal surgery Z98.890 [address] [place] [address] Aug, [facility] [id number] [place] [address] Aug, Sore throat J02.9 ; Cough R05 and Viral upper respiratory illness J06.9 [facility] [address] [id number] [place] [address] Aug, Major depressive disorder, recurrent epi sode, moderate degree F33.1 [address] [place] [address] Jul, [address] [place] [address] Jul, [place] [address] [place] [address] Jul, [address] [place] [address] Jul, [facility] [address] [id number] [place] [address] Jul, Major depressive disorder, recurrent epi sode, moderate degree F33.1 [facility] [address] [id number] [place] [address] Jul, [address] [place] [address] Jul, [facility] [address] [id number] [place] [address] Jul, Encounter for immunization Z23 [place] [address] [place] [address] Jul, Restrictive airway disease J 98.4 [place] [address] [place] [address] Jul, Screening for breast cancer Z12.39 [facility] [address] [place] [address] [id number] [place] [address] Jul, Major depressive disorder, recurrent epi sode, moderate degree F33.1 [address] [place] [address] Jun, [address] [place] [address] Jun, [place] [address] [place] [address] Jun, Shortness of breath R06.02 [place] [address] [place] [address] Jun, Shortness of breath R06.02 [place] [address] [place] [address] Jun, Shortness of breath R06.02 a nd Restrictive lung disease J98.4 [place] [address] [id number] [place] [address] Jun, Major depressive disorder, recurrent epi sode, moderate degree F33.1 [address] [place] [address] Jun, [facility] [address] [id number] [place] [address] Jun, History of tobacco use Z87.891 ; Screeni ng for breast cancer Z12.39 and Trigger point M79.[address] [place] [address] Jun, [address] [place] [address] Jun, Major depressive disorder, r ecurrent episode, moderate degree F33.1 ; Trigger point M79.10 ; History of tobacco use Z87.891 and Screening for breast cancer Z12.39 [facility] [address] [id number] [place] [address] Jun, Major depressive disorder, recurrent epi sode, moderate degree F33.1 [facility] [address] [id number] [place] [address] May, Major depressive disorder, recurrent epi sode, moderate degree F33.1 [facility] [address] [place] [address] May, Essential tremor G25.0 ; Can dida rash of groin B37.89 and History of hypertension Z86.79 [facility] [address] [place] [address] May, [address] [place] [address] May, [facility] [address] [id number] [place] [address] May, Major depressive disorder, recurrent epi sode, moderate degree F33.1 [facility] [address] [place] [address] Apr, [facility] [address] [id number] [place] [address] Apr, [facility] [address] [place] [address] Mar, [facility] [address] [place] [address] Mar, [facility] [address] [place] [address] Mar, [facility] [address] [place] [address] Mar, [facility] [address] [place] [address] Mar, [facility] [id number] [place] [address] Mar, Spinal stenosis of lumbar region without neurogenic claudication M48.061 [facility] [id number] [place] [address] Mar, Therapeutic drug monitoring Z51.81 [facility] [address] [place] [address] February, Therapeutic drug monitoring Z51.81 [facility] [place] [address] [place] [address] Jan, [facility] [address] [place] [address] Jan, [facility] [place] [address] [place] [address] Jan, [facility] [place] [facility] [address] [place] [address] Dec, [facility] [place] [facility] [address] [place] [address] Dec, [facility] [place] [address] [place] [address] Dec, [facility] [place] [address] [place] [address] Nov, [facility] [place] [facility] [address] [place] [address] Nov, [facility] [address] [id number] [place] [id number] Sep, Dental examination Z01.20 [facility] [address] [place] [id number] [place] [id number] Jun, Dental examination V72.2 [facility] [address] [place] [id number] [place] [address] Jan, [facility] [address] [place] [id number] [place] [address] Jan, [facility] [address] [place] [id number] [place] [address] Oct, [facility] [address] [place] [id number] [place] [address] Oct, [facility] [address] [place] [id number] [place] [address] Jul, [facility] [place] [facility] [address] [facility] [id number] [facility] [place] [address] Jul, [facility] [place] [facility] [address] [facility] [id number] [place] [address] Jun, [facility] [place] [facility] [address] [id number] [place] [address] Jun, [facility] [place] [facility] [address] [id number] [place] [address] May, [facility] [place] [facility] [address] [facility] [id number] [place] [address] May, [facility] [place] [facility] [address] [id number] [place] [address] May, [facility] [place] [facility] [address] [id number] [place] [address] May, [facility] [place] [facility] [address] [id number] [place] [address] May, [facility] [place] [facility] [address] [id number] [place] [address] May, [facility] [place] [facility] [address] [id number] [place] [address] May, [facility] [place] [facility] [address] [id number] [place] [address] May, [facility] [place] [facility] [address] [id number] [place] [address] Apr, [facility] [place] [facility] [address] [facility] [id number] [place] [address] Apr, [facility] [place] [facility] [address] [id number] [place] [address] Apr, [facility] [place] [facility] [address] [id number] [place] [address] Apr, 2013 [facility] [place] [facility] [address] [id number] [place] [address] Apr, [facility] [place] [facility] [address] [facility] [id number] [place] [address] 16 Apr, 2013 [facility] [place] [facility] [address] [facility] [id number] [place] [address] 15 Apr, 2013 [facility] [place] [facility] [address] [id number] [place] [address] 15 Apr, 2013 [facility] [place] [facility] [address] [id number] [place] [address] Apr, 2013 [facility] [place] [facility] [address] [facility] [id number] [place] [address] Apr, 2013 [facility] [place] [facility] [address] [facility] [id number] [place] [address] Apr, 2013 [facility] [place] [facility] [address] [id number] [place] [address] Apr, 2013 [facility] [place] [facility] [address] [id number] [place] [address] Apr, 2013 [facility] [place] [facility] [address] [id number] [place] [address] Apr, 2013 [facility] [place] [facility] [address] [id number] [place] [address] Apr, [facility] [place] [facility] [address] [id number] [place] [address] Apr, [facility] [place] [facility] [address] [id number] [place] [address] Apr, [facility] [place] [facility] [address] [id number] [place] [address] Mar, [facility] [place] [facility] [address] [facility] [id number] [place] [address] Mar, [facility] [place] [facility] [address] [id number] [place] [address] Mar, [facility] [place] [facility] [address] [id number] [place] [address] Mar, [facility] [place] [facility] [address] [id number] [place] [address] Mar, [facility] [place] [facility] [address] [id number] [facility] [place] [address] Mar, [facility] [place] [facility] [address] [facility] [id number] [place] [address] Mar, [facility] [place] [facility] [address] [facility] [id number] [facility] [place] [address] Mar, [facility] [place] [facility] [address] [id number] [place] [address] Mar, [facility] [place] [facility] [address] [facility] [id number] [place] [address] Mar, [facility] [place] [facility] [address] [id number] [facility] [place] [address] Mar, [facility] [place] [facility] [address] [id number] [place] [address] Mar, [facility] [place] [facility] [address] [id number] [facility] [place] [address] February, [facility] [place] [facility] [address] [facility] [id number] [facility] [place] [address] February, [facility] [place] [facility] [address] [id number] [facility] [place] [address] February, [facility] [place] [facility] [address] [id number] [place] [address] February, [facility] [place] [facility] [address] [id number] [place] [address] February, [facility] [place] [facility] [address] [facility] [id number] [facility] [place] [address] February, [facility] [place] [facility] [address] [id number] [place] [address] February, [facility] [place] [facility] [address] [id number] [place] [address] February, [facility] [place] [facility] [address] [id number] [facility] [place] [address] February, [facility] [place] [facility] [address] [id number] [place] [address] February, [facility] [place] [facility] [address] [facility] [id number] [facility] [place] [address] February, [facility] [place] [facility] [address] [id number] [place] [address] February, [facility] [place] [facility] [address] [id number] [place] [address] Jan, [facility] [place] [facility] [address] [id number] [place] [address] Jan, [facility] [place] [facility] [address] [id number] [place] [address] Jan, [facility] [place] [facility] [address] [id number] [place] [address] Jan, [facility] [place] [facility] [address] [id number] [place] [address] Jan, [facility] [place] [facility] [address] [id number] [place] [address] Jan, [facility] [place] [facility] [address] [id number] [place] [address] Dec, [facility] [place] [facility] [address] [id number] [place] [address] Dec, [facility] [place] [facility] [address] [id number] [place] [address] Dec, [facility] [place] [facility] [address] [id number] [place] [address] Dec, [facility] [place] [facility] [address] [id number] [place] [address] Dec, [facility] [place] [facility] [address] [id number] [place] [address] Dec, [facility] [place] [facility] [address] [id number] [place] [address] Nov, [facility] [place] [facility] [address] [id number] [place] [address] Nov, [facility] [place] [facility] [address] [id number] [place] [address] Nov, [facility] [place] [facility] [address] [id number] [place] [address] Nov, [facility] [place] [facility] [address] [id number] [place] [address] Oct, [facility] [place] [facility] [address] [id number] [place] [address] Oct, [facility] [place] [facility] [address] [id number] [place] [address] Oct, [facility] [place] [facility] [address] [id number] [place] [address] Oct, [facility] [place] [facility] [address] [id number] [place] [address] Oct, [facility] [place] [facility] [address] [id number] [place] [address] Oct, [facility] [place] [facility] [address] [id number] [place] [address] Oct, [facility] [place] [facility] [address] [id number] [place] [address] Oct, [facility] [place] [facility] [address] [id number] [place] [address] Oct, [facility] [place] [facility] [address] [id number] [place] [address] Sep, [facility] [place] [facility] [address] [id number] [place] [address] Sep, [facility] [place] [facility] [address] [id number] [place] [address] Sep, [facility] [place] [facility] [address] [id number] [place] [address] Sep, [facility] [place] [facility] [address] [id number] [place] [address] Sep, [facility] [place] [facility] [address] [id number] [place] [address] Sep, [facility] [place] [facility] [address] [facility] [id number] [place] [address] Sep, [facility] [place] [facility] [address] [id number] [place] [address] Aug, [facility] [place] [facility] [address] [id number] [place] [address] Aug, [facility] [place] [facility] [address] [id number] [place] [address] Jul, [facility] [place] [facility] [address] [facility] [id number] [place] [address] 28 Jul, 2013 [facility] [place] [facility] [address] [id number] [place] [address] 14 Jul, 2013 [facility] [place] [facility] [address] [id number] [place] [address] 14 Jul, 2013 [facility] [place] [facility] [address] [id number] [place] [address] Jul, [facility] [place] [facility] [address] [id number] [place] [address] Jul, [facility] [place] [facility] [address] [id number] [place] [address] 25 Jun, 2013 [facility] [place] [facility] [address] [id number] [place] [address] 16 Jun, 2013 [facility] [place] [facility] [address] [id number] [place] [address] 13 Jun, 2013 [facility] [place] [facility] [address] [id number] [place] [address] 30 May, 2013 [facility] [place] [facility] [address] [id number] [place] [address] May, [facility] [place] [facility] [address] [id number] [place] [address] Apr, [facility] [place] [facility] [address] [id number] [place] [address] Apr, [facility] [place] [facility] [address] [id number] [place] [address] Apr, [facility] [place] [facility] [address] [id number] [place] [address] Mar, [facility] [place] [facility] [address] [id number] [place] [address] Mar, [facility] [place] [address] [id number] [place] [address] February, [facility] [address] [id number] [place] [address] February, [facility] [address] [id number] [place] [address] Jan, [facility] [address] [id number] [place] [address] Jan, [facility] [id number] [place] [address] Dec, [facility] [id number] [place] [address] Nov, [facility] [address] [id number] [place] [address] Nov, [facility] [address] [id number] [place] [address] Nov, [facility] [address] [id number] [place] [address] Oct, [facility] [address] [id number] [place] [address] Aug, [facility] [address] [id number] [place] [address] Aug, [facility] [id number] [place] [address] Aug, [facility] [address] [id number] [place] [address] Aug, [facility] [id number] [place] [address] Jun, [facility] [address] [id number] [place] [address] 10 Jun, 2012 [facility] [address] [id number] [place] [address] 08 Jun, 2012 [facility] [address] [id number] [place] [address] 07 Jun, 2012 [facility] [address] [id number] [place] [address] 05 Jun, 2012 [facility] [address] [id number] [place] [address] 31 May, 2012 [facility] [address] [id number] [place] [address] 14 May, 2012 [facility] [address] [id number] [place] [address] 08 May, 2012 [facility] [address] [id number] [place] [address] May, [facility] [address] [id number] [place] [address] Mar, [facility] [address] [id number] [place] [address] Mar, [facility] [address] [id number] [place] [address] February, [facility] [address] [id number] [place] [address] February, [facility] [address] [id number] [place] [address] 25 Jan, 2012 [facility] [address] [id number] [place] [address] 17 Jan, 2012 [facility] [address] [id number] [place] [address] 13 Jan, 2012 [facility] [address] [id number] [place] [address] 12 Jan, 2012 [facility] [address] [id number] [place] [address] Jan[facility] [address] [id number] [place] [address] Nov, [facility] [address] [id number] [place] [address] 15 Nov, 2011 [facility] [address] [id number] [place] [address] Nov, [facility] [address] [id number] [place] [address] Oct, [facility] [address] [id number] [place] [address] Sep, [facility] [address] [id number] [place] [address] Sep, [facility] [id number] [place] [address] Sep, [facility] [address] [id number] [place] [address] Aug, [facility] [address] [id number] [place] [address] Aug, [facility] [id number] [place] [address] Jul, [facility] [address] [id number] [place] [address] Jul, [facility] [id number] [place] [address] Jun, [facility] [address] [id number] [place] [address] Nov, [facility] [id number] [place] [address] Aug, [facility] [address] [id number] [place] [address] Mar, [facility] [id number] [place] [address] Nov, IMMUNIZATIONS No Known Immunizations SOCIAL HISTORY Never Assessed REASON FOR VISIT PLAN OF CARE VITAL SIGNS Height 65 in 2014-04-30 Weight 240.7 lbs 2014-04-30 Heart Rate 86 bpm 2014-04-30 Respiratory Rate 20 2014-04-30 Blood pressure systolic 130 mmHg 2014-04-30 Blood pressure diastolic 90 mmHg 2014-04-30 MEDICATIONS Unknown Medications RESULTS No Results PROCEDURES Procedure Date Ordered Result Body Site MAMMOGRAM, SCREENING April 30, 2014 INSTRUCTIONS MEDICATIONS ADMINISTERED No Known Medications [...]
--- OUTSIDE RECORDS SUMMARY | 2020-03-15 07:09 | XMS REPORT ---
Author Author Marleny DIAZ Organization [facility] Address [address] [place] [address] Care Team Providers Care Entry Analyst Name Role Phone LIVE DIAZ Unavailable PROBLEMS Type Condition ICD9-CM Code EDG77-CM Code Onset Dates Condition S tatus SNOMED Code Problem Major depressive disorder, recurrent episode, moderate deg ree F33.1 Active 90957592 Problem Chronic obstructive pulmonary disease, unspecified COPD ty pe J44.9 Active 20010215 Problem Mitral valve prolapse I34.1 Active 966715893 Problem Essential tremor G25.0 Active 609 049016 Problem Other chronic pain G89.29 Active 8 8556225 Problem Hx of fracture of left hip Z87.81 Act west 657497952 Problem Family history of colon cancer Z80.0 Active [id number] ALLERGIES No Information ENCOUNTERS Encounter Location Date Diagnosis [place] [address] [address] Nov, [place] [address] [address] Oct, [place] [address] [address] Oct, [place] [address] [address] Oct, Major depressive disorder, recurrent epi sode, moderate degree F33.1 [place] [address] [address] Sep, Lumbar radiculopathy, acute M54.16 [place] [address] [address] Sep, [place] [address] [address] Sep, Laryngitis J04.0 ; Asymptomatic menopaus al state Z78.0 and Hx of fracture of left hip Z87.81 [place] [address] [address] Sep, Major depressive disorder, recurrent epi sode, moderate degree F33.1 [place] [address] [address] Sep, [place] [address] [address] Aug, [place] [address] [address] Aug, [place] [address] [address] Aug, Family history of colon cancer Z80.0 ; C hronic obstructive pulmonary disease, unspecified COPD type J44.9 ; Essential tremor G25.0 ; Mitral valve prolapse I34.1 ; Other chronic pain G89.29 ; Hx of fracture of left hip Z87.81 and Encounter for immunization Z23 [place] [address] [address] Aug, Major depressive disorder, recurrent epi sode, moderate degree F33.1 [place] [address] [address] [place] [address] Aug, Muscle spasm M62.838 ; Sever e back pain M54.9 and Hx of spinal surgery Z98.890 [address] [place] [address] Aug, [facility] [address] [facility] [id number] [place] [address] Aug, Sore throat J02.9 ; Cough R05 and Viral upper respiratory illness J06.9 [place] [address] [address] Aug, Major depressive disorder, recurrent epi sode, moderate degree F33.1 [address] [place] [address] Jul, [facility] [place] NUNEZ [address] [place] [address] Jul, [facility] [place] [address] [place] [address] Jul, [facility] [place] [address] [place] [address] Jul, [facility] [address] [place] [id number] [place] [address] Jul, Major depressive disorder, recurrent epi sode, moderate degree F33.1 [facility] [address] [place] [address] [id number] [place] [address] Jul, [facility] [place] [address] [place] [address] Jul, [facility] [address] [place] [address] [id number] [place] [address] Jul, Encounter for immunization Z23 [facility] [place] [address] [place] [address] Jul, Restrictive airway disease J 98.4 [facility] [place] [address] [place] [address] Jul, Screening for breast cancer Z12.39 [facility] [address] [id number] [place] [address] Jul, Major depressive disorder, recurrent epi sode, moderate degree F33.1 [facility] [place] NUNEZ [address] [place] [address] Jun, [facility] [place] NUNEZ [address] [place] [address] Jun, [facility] [place] NUNEZ [address] [place] [address] Jun, Shortness of breath R06.02 [facility] [place] NUNEZ [address] [place] [address] Jun, Shortness of breath R06.02 [place] [address] [address] [address] Jun, Shortness of breath R06.02 a nd Restrictive lung disease J98.4 [place] [address] [address] Jun, Major depressive disorder, recurrent epi sode, moderate degree F33.[address] [address] Jun, [place] [address] [address] Jun, History of tobacco use Z87.891 ; Screeni ng for breast cancer Z12.39 and Trigger point M79.10 [place] [address] [address] [address] Jun, [address] [address] Jun, Major depressive disorder, r ecurrent episode, moderate degree F33.1 ; Trigger point M79.10 ; History of tobacco use Z87.891 and Screening for breast cancer Z12.39 [place] [address] [address] Jun, Major depressive disorder, recurrent epi sode, moderate degree F33.1 [place] [address] [address] May, Major depressive disorder, recurrent epi sode, moderate degree F33.1 [place] [id number] [address] May, Essential tremor G25.0 ; Can dida rash of groin B37.89 and History of hypertension Z86.79 [place] [address] [address] [address] May, [address] [address] May, [facility] [address] [id number] [place] [address] May, Major depressive disorder, recurrent epi sode, moderate degree F33.1 [facility] [address] [place] [address] Apr, [facility] [place] [address] [facility] [id number] [place] [address] Apr, [facility] [address] [place] [address] Mar, [facility] [address] [place] [address] Mar, [facility] [address] [place] [address] Mar, [facility] [address] [place] [address] Mar, [facility] [address] [place] [address] Mar, [facility] [place] [address] [facility] [id number] [place] [address] Mar, Spinal stenosis of lumbar region without neurogenic claudication M48.061 [facility] [place] [address] [id number] [place] [address] Mar, Therapeutic drug monitoring Z51.81 [facility] [address] [place] [address] February, Therapeutic drug monitoring Z51.81 [facility] [address] [place] [address] Jan, [facility] [address] [place] [address] Jan, [facility] [address] [place] [address] Jan, [facility] [address] [place] [address] Dec, [facility] [place] [address] [place] [address] Dec, [facility] [place] [address] [place] [address] Dec, [facility] [place] [address] [place] [address] Nov, [facility] [place] [address] [place] [address] Nov, [facility] [place] [facility] [address] [place] [id number] [place] [id number] Sep, Dental examination Z01.20 [facility] [address] [id number] 10 Jun, 2015 Dental examination V72.2 [facility] [address] [place] [id number] [place] [address] Jan, [facility] [address] [place] [address] [id number] [place] [address] Jan, [facility] [address] [id number] [place] [address] Oct, [facility] [address] [address] Oct, [facility] [address] [place] [id number] [place] [address] Jul, [facility] [address] [place] [id number] [place] [address] Jul, [facility] [address] [place] [address] [id number] [place] [address] Jun, [facility] [address] [address] Jun, [facility] [address] [id number] [place] [address] May, [facility] [address] [place] [id number] [place] [address] May, [facility] [address] [id number] [place] [address] May, 2013 [facility] [address] [facility] [id number] [facility] [place] [address] May, 2013 [facility] [address] [facility] [id number] [place] [address] May, 2013 [facility] [address] [id number] [place] [address] May, 2013 [facility] [address] [facility] [id number] [place] [address] May, [facility] [address] [facility] [id number] [place] [address] May, [facility] [address] [id number] [place] [address] Apr, 2013 [facility] [address] [id number] [place] [address] Apr, 2013 [facility] [address] [id number] [place] [address] Apr, 2013 [facility] [address] [facility] [id number] [place] [address] Apr, 2013 [facility] [address] [id number] [place] [address] Apr, 2013 [facility] [address] [id number] [place] [address] Apr, 2013 [facility] [address] [id number] [place] [address] 15 Apr, 2013 [facility] [address] [facility] [id number] [place] [address] 15 Apr, 2013 [facility] [address] [id number] [place] [address] Apr, 2013 [facility] [address] [id number] [place] [address] Apr, 2013 [facility] [address] [id number] [place] [address] Apr, 2013 [facility] [address] [facility] [id number] [place] [address] Apr, 2013 [facility] [address] [facility] [id number] [facility] [place] [facility] [place] [address] Apr, 2013 [facility] [address] [facility] [id number] [place] [address] Apr, 2013 [facility] [address] [facility] [id number] [facility] [place] [facility] [place] [address] Apr, 2013 [facility] [address] [facility] [id number] [place] [address] Apr, 2013 [facility] [address] [facility] [id number] [place] [address] Apr, 2013 [facility] [address] [id number] [place] [address] Mar, [facility] [address] [id number] [place] [address] Mar, [facility] [address] [facility] [id number] [place] [address] Mar, [facility] [address] [id number] [place] [address] Mar, [facility] [address] [id number] [place] [address] Mar, [facility] [address] [id number] [place] [address] Mar, [facility] [address] [facility] [id number] [place] [address] Mar, [facility] [address] [facility] [id number] [place] [address] Mar, [facility] [address] [facility] [id number] [place] [address] Mar, [facility] [address] [id number] [place] [address] Mar, [facility] [address] [facility] [id number] [facility] [place] [place] [address] Mar, [facility] [address] [id number] [facility] [place] [facility] [address] Mar, [facility] [address] [id number] [place] [address] February, [facility] [address] [id number] [place] [address] February, [facility] [address] [id number] [place] [address] February, [facility] [address] [id number] [place] [address] February, [facility] [address] [id number] [place] [address] February, [facility] [address] [id number] [place] [address] February, [facility] [address] [id number] [place] [address] February, [facility] [address] [id number] [place] [address] February, [facility] [address] [id number] [place] [address] February, [facility] [address] [id number] [place] [address] February, [facility] [address] [id number] [place] [address] February, [facility] [address] [id number] [place] [address] February, [facility] [address] [id number] [place] [address] Jan, [facility] [address] [id number] [place] [address] Jan, [facility] [address] [id number] [place] [address] Jan, [facility] [address] [id number] [place] [address] Jan, [facility] [address] [id number] [place] [address] Jan, [facility] [address] [id number] [place] [address] Jan, [facility] [address] [id number] [place] [address] Dec, [facility] [address] [id number] [place] [address] Dec, [facility] [address] [id number] [place] [address] Dec, [facility] [address] [id number] [place] [address] Dec, [facility] [address] [id number] [place] [address] Dec, [facility] [address] [id number] [place] [address] Dec, [facility] [address] [id number] [place] [address] Nov, [facility] [address] [id number] [place] [address] Nov, [facility] [address] [id number] [place] [address] Nov, [facility] [address] [id number] [place] [address] Nov, [facility] [address] [id number] [place] [address] Oct, [facility] [address] [id number] [place] [address] Oct, [facility] [address] [id number] [place] [address] Oct, [facility] [address] [id number] [place] [address] Oct, [facility] [address] [id number] [place] [address] Oct, [facility] [address] [id number] [place] [address] Oct, [facility] [address] [id number] [place] [address] Oct, [facility] [address] [id number] [place] [address] Oct, [facility] [address] [id number] [place] [address] Oct, [facility] [address] [id number] [place] [address] Sep, [facility] [address] [id number] [place] [address] Sep, [facility] [address] [id number] [place] [address] Sep, [facility] [address] [id number] [place] [address] Sep, [facility] [address] [id number] [place] [address] 16 Sep, 2013 [facility] [address] [id number] [place] [address] Sep, [facility] [address] [id number] [place] [address] Sep, [facility] [address] [id number] [place] [address] Aug, [facility] [address] [id number] [place] [address] Aug, [facility] [address] [id number] [place] [address] Jul, [facility] [address] [id number] [place] [address] Jul, [facility] [address] [id number] [place] [address] 14 Jul, 2013 [facility] [address] [facility] [id number] [place] [address] 14 Jul, 2013 [facility] [address] [id number] [place] [address] 12 Jul, 2013 [facility] [address] [id number] [place] [address] 12 Jul, 2013 [facility] [address] [id number] [place] [address] 25 Jun, 2013 [facility] [address] [id number] [place] [address] 16 Jun, 2013 [facility] [address] [id number] [place] [address] Jun, [facility] [address] [id number] [place] [address] May, [facility] [address] [id number] [place] [address] May, [facility] [address] [id number] [place] [address] Apr, [facility] [address] [id number] [place] [address] Apr, [facility] [address] [id number] [place] [address] Apr, [facility] [address] [id number] [place] [address] Mar, [facility] [address] [id number] [place] [address] Mar, [facility] [address] [id number] [place] [address] February, [facility] [address] [id number] [place] [address] February, [facility] [address] [id number] [place] [address] Jan, [facility] [address] [id number] [place] [address] Jan, [facility] [address] [id number] [place] [address] Dec, [facility] [address] [id number] [place] [address] Nov, [facility] [address] [id number] [place] [address] Nov, [facility] [address] [id number] [place] [address] Nov, [facility] [address] [id number] [place] [address] Oct, [facility] [address] [id number] [place] [address] Aug, [facility] [id number] [place] [address] Aug, [facility] [address] [id number] [place] [address] 08 Aug, 2012 [facility] [id number] [place] [address] 08 Aug, 2012 [facility] [address] [id number] [place] [address] 26 Jun, 2012 [facility] [id number] [place] [address] 10 Jun, 2012 [facility] [address] [id number] [place] [address] 08 Jun, 2012 [facility] [address] [id number] [place] [address] 07 Jun, 2012 [facility] [address] [id number] [place] [address] 05 Jun, 2011 [facility] [address] [id number] [place] [address] May, [facility] [address] [id number] [place] [address] 14 May, 2012 [facility] [address] [facility] [id number] [place] [address] May, [facility] [address] [id number] [place] [address] May, [facility] [address] [id number] [place] [address] Mar, [facility] [address] [id number] [place] [address] Mar, [facility] [address] [id number] [place] [address] February, [facility] [address] [id number] [place] [address] February, [facility] [address] [id number] [place] [address] Jan, [facility] [address] [id number] [place] [address] Jan, [facility] [address] [id number] [place] [address] Jan, [facility] [address] [id number] [place] [address] Jan, [facility] [address] [id number] [place] [address] Jan, [facility] [address] [id number] [place] [address] 20 Nov, 2011 [facility] [address] [id number] [place] [address] 15 Nov, 2011 [facility] [address] [id number] [place] [address] 10 Nov, 2011 [facility] [facility] [address] [id number] [place] [address] Oct, [facility] [address] [id number] [place] [address] Sep, [facility] [address] [id number] [place] [address] Sep, [facility] [address] [id number] [place] [address] Sep, [facility] [address] [id number] [place] [address] Aug, [facility] [address] [id number] [place] [address] Aug, [facility] [address] [id number] [place] [address] Jul, [facility] [address] [id number] [place] [address] Jul, [facility] [address] [id number] [place] [address] Jun, [facility] [address] [id number] [place] [address] Nov, [facility] [address] [id number] [place] [address] Aug, [facility] [address] [id number] [place] [address] Mar, [facility] [address] [id number] [place] [address] Nov, IMMUNIZATIONS No Known Immunizations SOCIAL HISTORY [...]
--- OUTSIDE RECORDS SUMMARY | 2020-03-15 07:09 | XMS REPORT ---
Author Author Marleny DIAZ Organization [facility] Address [address] [place] [address] Care Team Providers Care Director Trial Name Role Phone LIVE DIAZ Unavailable PROBLEMS Type Condition ICD9-CM Code LAU83-VX Code Onset Dates Condition S tatus SNOMED Code Problem Essential tremor G25.0 Active 609 849978 Problem Mitral valve prolapse I34.1 Active 863045531 Problem Other chronic pain G89.29 Active 8 0567790 Problem Osteopenia of multiple sites M85.89 A ctive 026170230 Problem Major depressive disorder, recurrent episode, moderate deg ree F33.1 Active 48572566 Problem Morbid obesity due to excess calories E66.01 Active 564387498 Problem Family history of colon cancer Z80.0 Active 943856080 Problem Chronic obstructive pulmonary disease, unspecified COPD ty pe J44.9 Active 29760245 Problem Hx of fracture of left hip Z87.81 Act west 964447634 Problem Back pain with history of spinal surgery M54.9 Active [id number] ALLERGIES No Information ENCOUNTERS Encounter Location Date Diagnosis [place] [address] [address] Nov, [place] [address] [address] Oct, [place] [address] [address] Oct, [place] [address] [address] 15 Oct, 2019 Back pain with history of spinal surgery M54.9 ; Major depressive disorder, recurrent episode, moderate degree F33.1 ; Osteopenia of multiple sites M85.89 ; Easy bruising R23.8 ; Morbid obesity due to excess calories E66.01 ; Sore throat J02.9 ; Cough R05 ; Therapeutic drug monitoring Z51.81 and Severe back pain M54.9 [place] [address] [address] 07 Oct, 2019 Major depressive disorder, recurrent epi sode, moderate degree F33.1 [place] [address] [address] Sep, Lumbar radiculopathy, acute M54.16 [place] [address] [address] Sep, [place] [address] [address] Sep, Laryngitis J04.0 ; Asymptomatic menopaus al state Z78.0 and Hx of fracture of left hip Z87.81 [place] [address] [address] Sep, Major depressive disorder, recurrent epi sode, moderate degree F33.1 [place] [address] [address] Sep, [place] [address] [address] Aug, [place] [address] [address] Aug, [place] [address] [address] Aug, Family history of colon cancer Z80.0 ; C hronic obstructive pulmonary disease, unspecified COPD type J44.9 ; Essential tremor G25.0 ; Mitral valve prolapse I34.1 ; Other chronic pain G89.29 ; Hx of fracture of left hip Z87.81 and Encounter for immunization Z23 [place] [address] [address] Aug, Major depressive disorder, recurrent epi sode, moderate degree F33.1 [address] [place] [address] Aug, Muscle spasm M62.838 ; Sever e back pain M54.9 and Hx of spinal surgery Z98.[address] [place] [address] Aug, [facility] [address] [facility] [id number] [place] [address] Aug, Sore throat J02.9 ; Cough R05 and Viral upper respiratory illness J06.9 [facility] [address] [id number] [place] [address] Aug, Major depressive disorder, recurrent epi sode, moderate degree F33.[address] [place] [address] Jul, [address] [place] [address] Jul, [address] [place] [address] Jul, [address] [place] [address] Jul, [facility] [address] [id number] [place] [address] Jul, Major depressive disorder, recurrent epi sode, moderate degree F33.1 [facility] [address] [id number] [place] [address] Jul, [address] [place] [address] Jul, [facility] [address] [id number] [place] [address] Jul, Encounter for immunization Z23 [address] [place] [address] Jul, Restrictive airway disease J 98.[address] [place] [address] Jul, Screening for breast cancer Z12.39 [place] [address] [place] [id number] [place] [address] Jul, Major depressive disorder, recurrent epi sode, moderate degree F33.1 [address] [place] [address] Jun, [address] [place] [address] Jun, [place] [address] [place] [address] Jun, Shortness of breath R06.02 [place] [address] [place] [address] Jun, Shortness of breath R06.02 [place] [address] [place] [address] Jun, Shortness of breath R06.02 a nd Restrictive lung disease J98.4 [facility] [address] [place] [id number] [place] [address] Jun, Major depressive disorder, recurrent epi sode, moderate degree F33.1 [place] [address] [place] [address] Jun, [facility] [address] [id number] [place] [address] 18 Jun, 2019 History of tobacco use Z87.891 ; Screeni ng for breast cancer Z12.39 and Trigger point M79.10 [place] [address] [place] [address] Jun, [place] [address] [place] [address] Jun, Major depressive disorder, r ecurrent episode, moderate degree F33.1 ; Trigger point M79.10 ; History of tobacco use Z87.891 and Screening for breast cancer Z12.39 [facility] [address] [place] [id number] [place] [address] Jun, Major depressive disorder, recurrent epi sode, moderate degree F33.1 [place] [address] [id number] [place] [address] May, Major depressive disorder, recurrent epi sode, moderate degree F33.1 [facility] [address] [place] [address] May, Essential tremor G25.0 ; Can dida rash of groin B37.89 and History of hypertension Z86.79 [facility] [address] [place] [address] May, [facility] [address] [place] [address] May, [facility] [address] [id number] [place] [address] May, Major depressive disorder, recurrent epi sode, moderate degree F33.1 [facility] [address] [place] [address] Apr, [facility] [place] [address] [id number] [place] [address] Apr, [facility] [address] [place] [address] Mar, [facility] [address] [place] [address] Mar, [facility] [address] [place] [address] Mar, [facility] [address] [place] [address] Mar, [facility] [address] [place] [address] Mar, [facility] [place] [address] [id number] [place] [address] Mar, Spinal stenosis of lumbar region without neurogenic claudication M48.061 [facility] [place] [address] [facility] [id number] [place] [address] Mar, Therapeutic drug monitoring Z51.81 [facility] [place] [facility] [address] [place] [address] February, Therapeutic drug monitoring Z51.81 [facility] [place] [facility] [address] [place] [address] Jan, [facility] [place] [facility] [address] [place] [address] Jan, [facility] [place] [facility] [address] [place] [address] Jan, [facility] [place] [facility] [address] [place] [address] Dec, [facility] [place] [facility] [address] [place] [address] Dec, [facility] [place] [facility] [address] [place] [address] Dec, [facility] [place] [facility] [address] [place] [address] Nov, [facility] [address] [place] [address] Nov, [facility] [address] [id number] Sep, Dental examination Z01.20 [facility] [address] [place] [id number] [place] [id number] 10 Jun, 2015 Dental examination V72.2 [facility] [address] [place] [id number] [place] [address] 14 Jan, 2015 [facility] [address] [place] [id number] [place] [address] Jan, [facility] [address] [place] [id number] [place] [address] Oct, [facility] [address] [place] [id number] [place] [address] Oct, [facility] [address] [address] Jul, [facility] [place] [facility] [address] [facility] [id number] [place] [address] Jul, [facility] [place] [facility] [address] [facility] [id number] [facility] [place] [address] Jun, [facility] [place] [facility] [address] [facility] [id number] [place] [address] Jun, 2013 [facility] [place] [facility] [address] [facility] [id number] [place] [address] May, [facility] [place] [facility] [address] [facility] [id number] [place] [address] May, [facility] [place] [facility] [address] [id number] [place] [address] May, [facility] [place] [facility] [address] [id number] [place] [address] May, 2013 [facility] [place] [facility] [address] [id number] [place] [address] May, [facility] [place] [facility] [address] [facility] [id number] [place] [address] May, [facility] [place] [facility] [address] [id number] [place] [address] May, [facility] [place] [facility] [address] [id number] [place] [address] May, [facility] [place] [facility] [address] [id number] [place] [address] Apr, 2013 [facility] [place] [facility] [address] [facility] [id number] [place] [address] Apr, 2013 [facility] [place] [facility] [address] [facility] [id number] [place] [address] Apr, 2013 [facility] [place] [facility] [address] [facility] [id number] [place] [address] Apr, 2013 [facility] [place] [facility] [address] [id number] [place] [address] Apr, 2013 [facility] [place] [facility] [address] [facility] [id number] [place] [address] 16 Apr, 2013 [facility] [place] [facility] [address] [id number] [place] [address] 15 Apr, 2013 [facility] [place] [facility] [address] [facility] [id number] [place] [address] Apr, 2013 [facility] [place] [facility] [address] [id number] [place] [address] Apr, 2013 [facility] [place] [facility] [address] [facility] [id number] [place] [address] Apr, 2013 [facility] [place] [facility] [address] [facility] [id number] [place] [address] Apr, 2013 [facility] [place] [facility] [address] [id number] [place] [address] Apr, 2013 [facility] [place] [facility] [address] [id number] [place] [address] Apr, 2013 [facility] [place] [facility] [address] [id number] [place] [address] Apr, 2013 [facility] [place] [facility] [address] [facility] [id number] [place] [address] Apr, [facility] [place] [facility] [address] [id number] [place] [address] Apr, 2013 [facility] [place] [facility] [address] [id number] [place] [address] Apr, 2013 [facility] [place] [facility] [address] [id number] [place] [address] Mar, [facility] [place] [facility] [address] [facility] [id number] [place] [address] Mar, [facility] [place] [facility] [address] [id number] [place] [address] Mar, [facility] [place] [facility] [address] [id number] [place] [address] Mar, [facility] [place] [facility] [address] [id number] [place] [address] 13 Mar, 2014 [facility] [place] [facility] [address] [id number] [place] [address] Mar, [facility] [place] [facility] [address] [id number] [place] [address] Mar, [facility] [place] [facility] [address] [id number] [place] [address] Mar, [facility] [place] [facility] [address] [id number] [place] [address] Mar, [facility] [place] [facility] [address] [id number] [place] [address] Mar, [facility] [place] [facility] [address] [id number] [place] [address] Mar, [facility] [place] [facility] [address] [id number] [place] [address] Mar, [facility] [place] [facility] [address] [id number] [place] [address] February, [facility] [place] [facility] [address] [id number] [place] [address] February, [facility] [place] [facility] [address] [id number] [place] [address] February, [facility] [place] [facility] [address] [id number] [place] [address] February, [facility] [place] [facility] [address] [id number] [place] [address] February, [facility] [place] [facility] [address] [id number] [place] [address] February, [facility] [place] [facility] [address] [id number] [place] [address] February, [facility] [place] [facility] [address] [id number] [place] [address] February, [facility] [place] [facility] [address] [id number] [place] [address] February, [facility] [place] [facility] [address] [id number] [place] [address] February, [facility] [place] [facility] [address] [facility] [id number] [place] [address] February, [facility] [place] [facility] [address] [facility] [id number] [place] [address] February, [facility] [place] [facility] [address] [id number] [place] [address] Jan, [facility] [place] [facility] [address] [id number] [place] [address] Jan, [facility] [place] [facility] [address] [facility] [id number] [place] [address] Jan, [facility] [place] [facility] [address] [id number] [place] [address] Jan, [facility] [place] [facility] [address] [id number] [place] [address] Jan, [facility] [place] [facility] [address] [id number] [place] [address] Jan, [facility] [place] [facility] [address] [id number] [place] [address] Dec, [facility] [place] [facility] [address] [id number] [place] [address] Dec, [facility] [place] [facility] [address] [id number] [place] [address] Dec, [facility] [place] [facility] [address] [id number] [place] [address] Dec, [facility] [place] [facility] [address] [id number] [place] [address] Dec, [facility] [place] [facility] [address] [id number] [place] [address] Dec, [facility] [place] [facility] [address] [id number] [place] [address] Nov, [facility] [place] [facility] [address] [id number] [place] [address] Nov, [facility] [place] [facility] [address] [id number] [place] [address] 14 Nov, 2013 [facility] [place] [facility] [address] [id number] [place] [address] 14 Nov, 2013 [facility] [place] [facility] [address] [id number] [place] [address] Oct, [facility] [place] [facility] [address] [id number] [place] [address] Oct, [facility] [place] [facility] [address] [id number] [place] [address] Oct, [facility] [place] [facility] [address] [id number] [place] [address] Oct, [facility] [place] [facility] [address] [id number] [place] [address] Oct, [facility] [place] [facility] [address] [id number] [place] [address] Oct, [facility] [place] [facility] [address] [id number] [place] [address] Oct, [facility] [place] [facility] [address] [id number] [place] [address] Oct, [facility] [place] [facility] [address] [id number] [place] [address] Oct, [facility] [place] [facility] [address] [id number] [place] [address] Sep, [facility] [place] [facility] [address] [id number] [place] [address] 30 Sep, 2013 [facility] [place] [facility] [address] [id number] [place] [address] Sep, [facility] [place] [facility] [address] [id number] [place] [address] Sep, [facility] [place] [facility] [address] [id number] [place] [address] 16 Sep, 2013 [facility] [place] [facility] [address] [id number] [place] [address] Sep, [facility] [place] [facility] [address] [id number] [place] [address] Sep, [facility] [place] [facility] [address] [id number] [place] [address] Aug, [facility] [place] [facility] [address] [id number] [place] [address] Aug, [facility] [place] [facility] [address] [id number] [place] [address] Jul, [facility] [place] [facility] [address] [id number] [place] [address] 28 Jul, 2013 [facility] [place] [facility] [address] [id number] [place] [address] 14 Jul, 2013 [facility] [place] [facility] [address] [id number] [place] [address] 14 Jul, 2013 [facility] [place] [facility] [address] [id number] [place] [address] Jul, [facility] [place] [facility] [address] [id number] [place] [address] Jul, [facility] [place] [facility] [address] [id number] [place] [address] 25 Jun, 2013 [facility] [place] [facility] [address] [id number] [place] [address] 16 Jun, 2013 [facility] [place] [facility] [address] [id number] [place] [address] 13 Jun, 2013 [facility] [address] [id number] [place] [address] 30 May, 2013 [facility] [address] [id number] [place] [address] May, [facility] [address] [id number] [place] [address] Apr, [facility] [address] [id number] [place] [address] Apr, [facility] [address] [id number] [place] [address] Apr, [facility] [address] [id number] [place] [address] Mar, [facility] [address] [id number] [place] [address] Mar, [facility] [address] [id number] [place] [address] February, [facility] [address] [id number] [place] [address] February, [facility] [address] [id number] [place] [address] Jan, [facility] [address] [id number] [place] [address] Jan, [facility] [address] [id number] [place] [address] Dec, [facility] [id number] [place] [address] Nov, [facility] [address] [id number] [place] [address] Nov, [facility] [address] [id number] [place] [address] Nov, [facility] [address] [id number] [place] [address] Oct, [facility] [id number] [place] [address] Aug, [facility] [address] [id number] [place] [address] Aug, [facility] [id number] [place] [address] Aug, [facility] [address] [id number] [place] [address] Aug, [facility] [address] [id number] [place] [address] Jun, [facility] [id number] [place] [address] 10 Jun, 2012 [facility] [address] [id number] [place] [address] 08 Jun, 2012 [facility] [address] [id number] [place] [address] 07 Jun, 2012 [facility] [address] [id number] [place] [address] 05 Jun, 2012 [facility] [address] [id number] [place] [address] 31 May, 2012 [facility] [address] [id number] [place] [address] 14 May, 2012 [facility] [address] [id number] [place] [address] May, [facility] [address] [id number] [place] [address] May, [facility] [address] [id number] [place] [address] Mar, [facility] [address] [id number] [place] [address] Mar, [facility] [address] [id number] [place] [address] February, [facility] [address] [id number] [place] [address] February, [facility] [address] [id number] [place] [address] 25 Jan, 2012 [facility] [address] [id number] [place] [address] 17 Jan, 2012 [facility] [address] [id number] [place] [address] 13 Jan, 2012 [facility] [address] [id number] [place] [address] 12 Jan, 2012 [facility] [address] [id number] [place] [address] Jan, [facility] [address] [id number] [place] [address] Nov, [facility] [facility] [address] [id number] [place] [address] 15 Nov, 2011 [facility] [address] [id number] [place] [address] Nov, [facility] [address] [id number] [place] [address] Oct, [facility] [address] [id number] [place] [address] Sep, [facility] [id number] [place] [address] Sep, [facility] [address] [id number] [place] [address] Sep, [facility] [id number] [place] [address] Aug, [facility] [address] [id number] [place] [address] Aug, [facility] [id number] [place] [address] Jul, [facility] [address] [id number] [place] [address] Jul, [facility] [id number] [place] [address] Jun, [facility] [address] [id number] [place] [address] Nov, [facility] [id number] [place] [address] Aug, [facility] [id number] [place] [address] Mar, [facility] [address] [id number] [place] [address] Nov, IMMUNIZATIONS No Known Immunizations SOCIAL HISTORY [...]
--- OUTSIDE RECORDS SUMMARY | 2020-03-15 07:09 | XMS REPORT ---
Author Author Marleny DIAZ Organization 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 Name Role Phone LIVE DIAZ Unavailable PROBLEMS Type Condition ICD9-CM Code BWH28-UQ Code Onset Dates Condition S tatus SNOMED Code Problem Major depressive disorder, recurrent episode, moderate deg ree F33.1 Active 24038731 Problem Chronic obstructive pulmonary disease, unspecified COPD ty pe J44.9 Active 52003330 Problem Mitral valve prolapse I34.1 Active 190695708 Problem Essential tremor G25.0 Active 609 712888 Problem Other chronic pain G89.29 Active 8 3291078 Problem Hx of fracture of left hip Z87.81 Act west 932215125 Problem Family history of colon cancer Z80.0 Active [id number] ALLERGIES No Information ENCOUNTERS Encounter Location Date Diagnosis [place] [address] [address] Nov, [place] [address] [address] Oct, [place] [address] [address] Oct, [place] [address] [address] Oct, Major depressive disorder, recurrent epi sode, moderate degree F33.1 [place] [address] [address] Sep, Lumbar radiculopathy, acute M54.16 [place] [address] [address] Sep, [place] [address] [address] Sep, Laryngitis J04.0 ; Asymptomatic menopaus al state Z78.0 and Hx of fracture of left hip Z87.81 [place] [address] [address] Sep, Major depressive disorder, recurrent epi sode, moderate degree F33.1 [place] [address] [address] Sep, [place] [address] [address] Aug, [place] [address] [address] Aug, [place] [address] [address] Aug, Family history of colon cancer Z80.0 ; C hronic obstructive pulmonary disease, unspecified COPD type J44.9 ; Essential tremor G25.0 ; Mitral valve prolapse I34.1 ; Other chronic pain G89.29 ; Hx of fracture of left hip Z87.81 and Encounter for immunization Z23 [place] [address] [address] Aug, Major depressive disorder, recurrent epi sode, moderate degree F33.1 [place] [address] [place] [address] Aug, Muscle spasm M62.838 ; Sever e back pain M54.9 and Hx of spinal surgery Z98.890 [address] [place] [address] Aug, [facility] [address] [facility] [id number] [place] [address] Aug, Sore throat J02.9 ; Cough R05 and Viral upper respiratory illness J06.9 [place] [address] [address] Aug, Major depressive disorder, recurrent epi sode, moderate degree F33.1 [address] [place] [address] Jul, [facility] [address] [place] [address] Jul, [facility] [address] [place] [address] Jul, [facility] [address] [place] [address] Jul, [facility] [address] [place] [id number] [place] [address] Jul, Major depressive disorder, recurrent epi sode, moderate degree F33.1 [facility] [address] [place] [address] [id number] [place] [address] Jul, [facility] [address] [place] [address] Jul, [facility] [address] [place] [address] [id number] [place] [address] Jul, Encounter for immunization Z23 [facility] [address] [place] [address] Jul, Restrictive airway disease J 98.4 [facility] [address] [place] [address] Jul, Screening for breast cancer Z12.39 [facility] [address] [id number] [place] [address] Jul, Major depressive disorder, recurrent epi sode, moderate degree F33.1 [facility] [address] [place] [address] Jun, [facility] [address] [place] [address] Jun, [facility] [address] [place] [address] Jun, Shortness of breath R06.02 [facility] [address] [place] [address] Jun, Shortness of breath R06.02 [place] [address] [address] Jun, Shortness of breath R06.02 a nd Restrictive lung disease J98.4 [place] [address] [address] Jun, Major depressive disorder, recurrent epi sode, moderate degree F33.[address] [address] Jun, [place] [address] [address] Jun, History of tobacco use Z87.891 ; Screeni ng for breast cancer Z12.39 and Trigger point M79.10 [place] [address] [address] Jun, [address] [address] Jun, Major depressive disorder, r ecurrent episode, moderate degree F33.1 ; Trigger point M79.10 ; History of tobacco use Z87.891 and Screening for breast cancer Z12.39 [place] [address] [address] Jun, Major depressive disorder, recurrent epi sode, moderate degree F33.1 [place] [address] [address] May, Major depressive disorder, recurrent epi sode, moderate degree F33.1 [place] [id number] [address] May, Essential tremor G25.0 ; Can dida rash of groin B37.89 and History of hypertension Z86.79 [place] [address] [address] May, [address] [address] May, [facility] [address] [id number] [place] [address] May, Major depressive disorder, recurrent epi sode, moderate degree F33.1 [facility] [address] [place] [address] Apr, [facility] [place] [address] [facility] [id number] [place] [address] Apr, [facility] [address] [place] [address] Mar, [facility] [address] [place] [address] Mar, [facility] [address] [place] [address] Mar, [facility] [address] [place] [address] Mar, [facility] [address] [place] [address] Mar, [facility] [place] [address] [facility] [id number] [place] [address] Mar, Spinal stenosis of lumbar region without neurogenic claudication M48.061 [facility] [place] [address] [id number] [place] [address] Mar, Therapeutic drug monitoring Z51.81 [facility] [address] [place] [address] February, Therapeutic drug monitoring Z51.81 [facility] [address] [place] [address] Jan, [facility] [address] [place] [address] Jan, [facility] [address] [place] [address] Jan, [facility] [address] [place] [address] Dec, [facility] [place] [facility] [address] [place] [address] Dec, [facility] [place] [facility] [address] [place] [address] Dec, [facility] [place] [facility] [address] [place] [address] Nov, [facility] [place] [address] [place] [address] Nov, [facility] [facility] [address] [place] [id number] [place] [id number] Sep, Dental examination Z01.20 [facility] [place] [facility] [address] [id number] Jun, 2015 Dental examination V72.2 [facility] [address] [id number] [place] [address] Jan, [facility] [address] [id number] [place] [address] Jan, [facility] [address] [place] [id number] [place] [address] Oct, [facility] [address] [address] Oct, [facility] [address] [place] [address] [id number] [place] [address] Jul, [facility] [address] [place] [id number] [place] [address] Jul, [facility] [address] [place] [address] [id number] [place] [address] Jun, [facility] [address] [address] Jun, [facility] [address] [place] [address] [id number] [place] [address] May, [facility] [address] [place] [id number] [place] [address] May, [facility] [address] [id number] [place] [address] May, 2013 [facility] [address] [facility] [id number] [facility] [place] [address] May, 2013 [facility] [address] [facility] [id number] [place] [address] May, 2013 [facility] [address] [id number] [place] [address] May, 2013 [facility] [address] [facility] [id number] [place] [address] May, [facility] [address] [facility] [id number] [place] [address] May, [facility] [address] [id number] [place] [address] Apr, 2013 [facility] [address] [id number] [place] [address] Apr, 2013 [facility] [address] [id number] [place] [address] Apr, 2013 [facility] [address] [facility] [id number] [place] [address] Apr, 2013 [facility] [address] [id number] [place] [address] Apr, 2013 [facility] [address] [id number] [place] [address] Apr, 2013 [facility] [address] [id number] [place] [address] 15 Apr, 2013 [facility] [address] [facility] [id number] [place] [address] 15 Apr, 2013 [facility] [address] [id number] [place] [address] Apr, 2013 [facility] [address] [id number] [place] [address] Apr, 2013 [facility] [address] [id number] [place] [address] Apr, 2013 [facility] [address] [facility] [id number] [place] [address] Apr, 2013 [facility] [address] [facility] [id number] [facility] [place] [address] Apr, 2013 [facility] [address] [facility] [id number] [place] [address] Apr, 2013 [facility] [address] [facility] [id number] [facility] [place] [address] Apr, 2013 [facility] [address] [facility] [id number] [place] [address] Apr, 2013 [facility] [address] [facility] [id number] [place] [address] Apr, 2013 [facility] [address] [id number] [place] [address] Mar, [facility] [address] [id number] [place] [address] Mar, [facility] [address] [facility] [id number] [place] [address] Mar, [facility] [address] [id number] [place] [address] Mar, [facility] [address] [id number] [place] [address] Mar, [facility] [address] [id number] [place] [address] Mar, [facility] [address] [facility] [id number] [place] [address] Mar, [facility] [address] [facility] [id number] [place] [address] Mar, [facility] [address] [facility] [id number] [place] [address] Mar, [facility] [address] [id number] [place] [address] Mar, [facility] [address] [facility] [id number] [facility] [place] [address] Mar, [facility] [address] [id number] [facility] [place] [address] Mar, [facility] [address] [id number] [place] [address] February, [facility] [address] [id number] [place] [address] February, [facility] [address] [id number] [place] [address] February, [facility] [address] [id number] [place] [address] February, [facility] [address] [id number] [place] [address] February, [facility] [address] [id number] [place] [address] February, [facility] [address] [id number] [place] [address] February, [facility] [address] [id number] [place] [address] February, [facility] [address] [id number] [place] [address] February, [facility] [address] [id number] [place] [address] February, [facility] [address] [id number] [place] [address] February, [facility] [address] [id number] [place] [address] February, [facility] [address] [id number] [place] [address] Jan, [facility] [address] [id number] [place] [address] Jan, [facility] [address] [id number] [place] [address] Jan, [facility] [address] [id number] [place] [address] Jan, [facility] [address] [id number] [place] [address] Jan, [facility] [address] [id number] [place] [address] Jan, [facility] [address] [id number] [place] [address] Dec, [facility] [address] [id number] [place] [address] Dec, [facility] [address] [id number] [place] [address] Dec, [facility] [address] [id number] [place] [address] Dec, [facility] [address] [id number] [place] [address] Dec, [facility] [address] [id number] [place] [address] Dec, [facility] [address] [id number] [place] [address] Nov, [facility] [address] [id number] [place] [address] Nov, [facility] [address] [id number] [place] [address] Nov, [facility] [address] [id number] [place] [address] Nov, [facility] [address] [id number] [place] [address] Oct, [facility] [address] [id number] [place] [address] Oct, [facility] [address] [id number] [place] [address] Oct, [facility] [address] [id number] [place] [address] Oct, [facility] [address] [id number] [place] [address] Oct, [facility] [address] [id number] [place] [address] Oct, [facility] [address] [id number] [place] [address] Oct, [facility] [address] [id number] [place] [address] Oct, [facility] [address] [id number] [place] [address] Oct, [facility] [address] [id number] [place] [address] Sep, [facility] [address] [id number] [place] [address] Sep, [facility] [address] [id number] [place] [address] Sep, [facility] [address] [id number] [place] [address] Sep, [facility] [address] [id number] [place] [address] 16 Sep, 2013 [facility] [address] [id number] [place] [address] Sep, [facility] [address] [id number] [place] [address] Sep, [facility] [address] [id number] [place] [address] Aug, [facility] [address] [id number] [place] [address] Aug, [facility] [address] [id number] [place] [address] Jul, [facility] [address] [id number] [place] [address] Jul, [facility] [address] [id number] [place] [address] 14 Jul, 2013 [facility] [address] [facility] [id number] [place] [address] 14 Jul, 2013 [facility] [address] [id number] [place] [address] 12 Jul, 2013 [facility] [address] [id number] [place] [address] 12 Jul, 2013 [facility] [address] [id number] [place] [address] 25 Jun, 2013 [facility] [address] [id number] [place] [address] 16 Jun, 2013 [facility] [address] [id number] [place] [address] Jun, [facility] [address] [id number] [place] [address] May, [facility] [address] [id number] [place] [address] May, [facility] [address] [id number] [place] [address] Apr, [facility] [address] [id number] [place] [address] Apr, [facility] [address] [id number] [place] [address] Apr, [facility] [address] [id number] [place] [address] Mar, [facility] [address] [id number] [place] [address] Mar, [facility] [address] [id number] [place] [address] February, [facility] [address] [id number] [place] [address] February, [facility] [address] [id number] [place] [address] Jan, [facility] [address] [id number] [place] [address] Jan, [facility] [address] [id number] [place] [address] Dec, [facility] [address] [id number] [place] [address] Nov, [facility] [address] [id number] [place] [address] Nov, [facility] [address] [id number] [place] [address] Nov, [facility] [address] [id number] [place] [address] Oct, [facility] [address] [id number] [place] [address] Aug, [facility] [id number] [place] [address] Aug, [facility] [address] [id number] [place] [address] 08 Aug, 2012 [facility] [id number] [place] [address] 08 Aug, 2012 [facility] [address] [id number] [place] [address] 26 Jun, 2012 [facility] [id number] [place] [address] 10 Jun, 2012 [facility] [address] [id number] [place] [address] 08 Jun, 2012 [facility] [address] [id number] [place] [address] 07 Jun, 2012 [facility] [address] [id number] [place] [address] 05 Jun, 2011 [facility] [address] [id number] [place] [address] May, [facility] [address] [id number] [place] [address] 14 May, 2012 [facility] [address] [facility] [id number] [place] [address] May, [facility] [address] [id number] [place] [address] May, [facility] [address] [id number] [place] [address] Mar, [facility] [address] [id number] [place] [address] Mar, [facility] [address] [id number] [place] [address] February, [facility] [address] [id number] [place] [address] February, [facility] [address] [id number] [place] [address] Jan, [facility] [address] [id number] [place] [address] Jan, [facility] [address] [id number] [place] [address] Jan, [facility] [address] [id number] [place] [address] Jan, [facility] [address] [id number] [place] [address] Jan, [facility] [address] [id number] [place] [address] 20 Nov, 2011 [facility] [address] [id number] [place] [address] 15 Nov, 2011 [facility] [address] [id number] [place] [address] 10 Nov, 2011 [facility] [address] [id number] [place] [address] Oct, [facility] [address] [id number] [place] [address] Sep, [facility] [address] [id number] [place] [address] Sep, [facility] [address] [id number] [place] [address] Sep, [facility] [address] [id number] [place] [address] Aug, [facility] [address] [id number] [place] [address] Aug, [facility] [address] [id number] [place] [address] Jul, [facility] [address] [id number] [place] [address] Jul, [facility] [address] [id number] [place] [address] Jun, [facility] [address] [id number] [place] [address] Nov, [facility] [address] [id number] [place] [address] Aug, [facility] [address] [id number] [place] [address] Mar, [facility] [address] [id number] [place] [address] Nov, IMMUNIZATIONS No Known Immunizations SOCIAL HISTORY [...]
--- OUTSIDE RECORDS SUMMARY | 2020-03-15 07:10 | XMS REPORT ---
Author Author Marleny Rios Doctor Organization [facility] Address Unknown Phone Unavailable Care Team Providers Care Tester Waste Disposal Leakage Name Role Phone Migration, Doctor Unavailable Unavailable PROBLEMS Type Condition ICD9-CM Code [id number] Code Onset Dates Condition S tatus SNOMED Code Problem Major depressive disorder, recurrent episode, moderate deg ree F33.1 Active 91647162 Problem Chronic obstructive pulmonary disease, unspecified COPD ty pe J44.9 Active 37602049 Problem Mitral valve prolapse I34.1 Active 747864441 Problem Essential tremor G25.0 Active 609 220789 Problem Other chronic pain G89.29 Active 8 3986476 Problem Hx of fracture of left hip Z87.81 Act west 715974158 Problem Family history of colon cancer Z80.0 Active [id number] ALLERGIES No Information ENCOUNTERS Encounter Location Date Diagnosis [place] [address] [address] Oct, [place] [address] [address] Oct, [place] [address] [address] Oct, [place] [address] [address] Sep, Lumbar radiculopathy, acute M54.16 [place] [address] [address] Sep, [place] [address] [address] Sep, Laryngitis J04.0 ; Asymptomatic menopaus al state Z78.0 and Hx of fracture of left hip Z87.81 [place] [address] [address] Sep, Major depressive disorder, recurrent epi sode, moderate degree F33.1 [place] [address] [place] [id number] [place] [address] Sep, [facility] [address] [address] Aug, [facility] [address] [place] [id number] [place] [address] Aug, [place] [address] [address] Aug, Family history of colon cancer Z80.0 ; C hronic obstructive pulmonary disease, unspecified COPD type J44.9 ; Essential tremor G25.0 ; Mitral valve prolapse I34.1 ; Other chronic pain G89.29 ; Hx of fracture of left hip Z87.81 and Encounter for immunization Z23 [place] [address] [place] [id number] [place] [address] Aug, Major depressive disorder, recurrent epi sode, moderate degree F33.1 [address] [place] [address] Aug, Muscle spasm M62.838 ; Sever e back pain M54.9 and Hx of spinal surgery Z98.890 [address] [place] [address] Aug, [facility] [address] [facility] [id number] [place] [address] Aug, Sore throat J02.9 ; Cough R05 and Viral upper respiratory illness J06.9 [place] [address] [id number] [place] [address] Aug, Major depressive disorder, recurrent epi sode, moderate degree F33.1 [place] [address] [place] [address] Jul, [address] [place] [address] Jul, [address] [place] [address] Jul, [facility] [place] [address] [place] [address] Jul, [facility] [address] [id number] [place] [address] Jul, Major depressive disorder, recurrent epi sode, moderate degree F33.1 [facility] [address] [id number] [place] [address] Jul, [address] [place] [address] Jul, [facility] [address] [id number] [place] [address] Jul, Encounter for immunization Z23 [address] [place] [address] Jul, Restrictive airway disease J 98.4 [address] [place] [address] Jul, Screening for breast cancer Z12.39 [facility] [address] [id number] [place] [address] Jul, Major depressive disorder, recurrent epi sode, moderate degree F33.1 [facility] [place] [address] [place] [address] Jun, [facility] [place] [address] [place] [address] Jun, [address] [place] [address] Jun, Shortness of breath R06.02 [facility] [place] [address] [place] [address] Jun, Shortness of breath R06.02 [address] [place] [address] Jun, Shortness of breath R06.02 a nd Restrictive lung disease J98.4 [facility] [address] [place] [id number] [place] [address] Jun, Major depressive disorder, recurrent epi sode, moderate degree F33.1 [place] [address] [address] [address] Jun, [facility] [address] [address] 18 Jun, 2019 History of tobacco use Z87.891 ; Screeni ng for breast cancer Z12.39 and Trigger point M79.10 [place] [address] [place] [address] Jun, [address] [address] Jun, Major depressive disorder, r ecurrent episode, moderate degree F33.1 ; Trigger point M79.10 ; History of tobacco use Z87.891 and Screening for breast cancer Z12.39 [place] [address] [address] Jun, Major depressive disorder, recurrent epi sode, moderate degree F33.1 [place] [address] [address] May, Major depressive disorder, recurrent epi sode, moderate degree F33.1 [place] [address] May, Essential tremor G25.0 ; Can dida rash of groin B37.89 and History of hypertension Z86.79 [place] [address] [address] May, [place] [address] [place] [address] May, [place] [address] [address] 06 May, 2019 Major depressive disorder, recurrent epi sode, moderate degree F33.1 [place] [address] [address] Apr, [facility] [place] [address] [facility] [id number] [place] [address] Apr, [facility] [address] [place] [address] Mar, [facility] [address] [facility] [address] [place] [address] Mar, [facility] [place] [facility] [address] [facility] [address] [place] [address] Mar, [facility] [place] [facility] [address] [facility] [address] [place] [address] Mar, [facility] [place] [facility] [facility] [address] [facility] [address] [place] [address] Mar, [facility] [place] [address] [id number] [place] [address] Mar, Spinal stenosis of lumbar region without neurogenic claudication M48.061 [facility] [place] [address] [facility] [id number] [place] [address] Mar, Therapeutic drug monitoring Z51.81 [facility] [place] [facility] [address] [place] [address] February, Therapeutic drug monitoring Z51.81 [facility] [address] [place] [address] Jan, [facility] [address] [place] [address] Jan, [facility] [place] [facility] [address] [place] [address] Jan, [facility] [place] [facility] [address] [place], [place] [address] [place] [address] Dec, [facility] [address] [place] [address] Dec, [facility] [address] [place] [address] [place] [address] Dec, [facility] [place] [facility] [address] [facility] [address] [place] [address] Nov, [facility] [place] [facility] [address] [facility] [address] [place] [address] Nov, [facility] [address] [id number] [place] [id number] Sep, Dental examination Z01.20 [facility] [address] [id number] [place] [id number] 10 Jun, 2015 Dental examination V72.2 [facility] [address] [id number] [place] [address] 14 Jan, 2015 [facility] [address] [place] [id number] [place] [address] Jan, [facility] [address] [place] [id number] [place] [address] Oct, [facility] [address] [place] [id number] [place] [address] Oct, [facility] [address] [id number] [place] [address] Jul, [facility] [address] [place] [id number] [place] [address] Jul, [facility] [address] [id number] [place] [address] Jun, [facility] [address] [place] [id number] [place] [address] Jun, [facility] [address] [id number] [place] [address] May, [facility] [address] [id number] [place] [address] May, [facility] [address] [id number] [place] [address] May, [facility] [address] [id number] [place] [address] May, [facility] [address] [place] [id number] [place] [address] May, 2013 [facility] [address] [id number] [facility] [address] May, 2013 [facility] [address] [facility] [id number] [place] [address] May, [facility] [address] [facility] [id number] [place] [address] May, [facility] [address] [facility] [id number] [place] [address] Apr, 2013 [facility] [address] [facility] [id number] [place] [address] Apr, 2013 [facility] [address] [id number] [place] [address] Apr, 2013 [facility] [address] [id number] [place] [address] Apr, 2013 [facility] [address] [id number] [place] [address] Apr, 2013 [facility] [address] [facility] [id number] [place] [address] Apr, 2013 [facility] [address] [id number] [place] [address] Apr, [facility] [address] [id number] [place] [address] Apr, 2013 [facility] [address] [id number] [place] [address] Apr, 2013 [facility] [address] [facility] [id number] [place] [address] Apr, 2013 [facility] [address] [id number] [place] [address] Apr, 2013 [facility] [address] [id number] [place] [address] Apr, 2013 [facility] [address] [id number] [place] [address] Apr, 2013 [facility] [address] [facility] [id number] [place] [address] Apr, [facility] [address] [id number] [place] [address] Apr, [facility] [address] [id number] [place] [address] Apr, [facility] [address] [id number] [place] [address] Apr, [facility] [address] [facility] [id number] [place] [address] Mar, [facility] [address] [id number] [place] [address] Mar, [facility] [address] [id number] [place] [address] Mar, [facility] [address] [id number] [place] [address] Mar, [facility] [address] [id number] [place] [address] Mar, [facility] [address] [id number] [place] [address] Mar, [facility] [address] [id number] [place] [address] Mar, [facility] [address] [id number] [place] [address] Mar, [facility] [address] [id number] [place] [address] Mar, [facility] [address] [id number] [place] [address] Mar, [facility] [address] [id number] [place] [address] Mar, [facility] [address] [id number] [place] [address] Mar, [facility] [address] [id number] [place] [address] February, [facility] [address] [id number] [facility] [place] [address] February, [facility] [address] [id number] [facility] [address] February, [facility] [address] [id number] [facility] [place] [address] February, [facility] [address] [id number] [facility] [place] [address] February, [facility] [address] [id number] [facility] [address] February, [facility] [address] [id number] [place] [address] February, [facility] [address] [id number] [place] [address] February, [facility] [address] [id number] [facility] [address] February, [facility] [address] [id number] [place] [address] February, [facility] [address] [id number] [place] [address] February, [facility] [address] [id number] [place] [address] February, [facility] [address] [id number] [place] [address] Jan, [facility] [address] [id number] [place] [address] Jan, [facility] [address] [id number] [place] [address] Jan, [facility] [address] [id number] [place] [address] Jan, [facility] [address] [id number] [place] [address] Jan, [facility] [address] [id number] [place] [address] 07 Jan, 2014 [facility] [address] [facility] [id number] [place] [address] Dec, [facility] [address] [id number] [place] [address] Dec, [facility] [address] [id number] [place] [address] Dec, [facility] [address] [id number] [place] [address] Dec, [facility] [address] [id number] [place] [address] Dec, [facility] [address] [id number] [place] [address] Dec, [facility] [address] [id number] [place] [address] Nov, [facility] [address] [id number] [place] [address] Nov, [facility] [address] [id number] [place] [address] Nov, [facility] [address] [id number] [place] [address] Nov, [facility] [address] [id number] [place] [address] Oct, [facility] [address] [id number] [place] [address] Oct, [facility] [address] [id number] [place] [address] Oct, [facility] [address] [id number] [place] [address] Oct, [facility] [address] [id number] [place] [address] Oct, [facility] [address] [id number] [place] [address] Oct, [facility] [address] [id number] [place] [address] Oct, [facility] [address] [id number] [place] [address] Oct, [facility] [address] [id number] [place] [address] Oct, [facility] [address] [id number] [place] [address] Sep, [facility] [address] [id number] [place] [address] Sep, [facility] [address] [id number] [place] [address] Sep, [facility] [address] [id number] [place] [address] Sep, [facility] [address] [place] [id number] [place] [address] 16 Sep, 2013 [facility] [address] [id number] [place] [address] Sep, [facility] [address] [id number] [place] [address] Sep, [facility] [address] [id number] [place] [address] Aug, [facility] [address] [id number] [place] [address] Aug, [facility] [address] [id number] [place] [address] Jul, [facility] [address] [id number] [place] [address] 28 Jul, 2013 [facility] [address] [id number] [place] [address] 14 Jul, 2013 [facility] [address] [id number] [place] [address] 14 Jul, 2013 [facility] [address] [id number] [place] [address] Jul, [facility] [address] [facility] [id number] [facility] [address] Jul, [facility] [address] [facility] [id number] [place] [address] Jun, [facility] [address] [id number] [facility] [address] 16 Jun, 2013 [facility] [address] [id number] [facility] [address] Jun, [facility] [address] [facility] [id number] [facility] [address] May, [facility] [address] [id number] [place] [address] May, [facility] [address] [id number] [place] [address] Apr, [facility] [address] [id number] [place] [address] Apr, [facility] [address] [id number] [place] [address] Apr, [facility] [address] [id number] [place] [address] Mar, [facility] [address] [id number] [place] [address] Mar, [facility] [address] [id number] [place] [address] February, [facility] [address] [facility] [id number] [place] [address] February, [facility] [address] [id number] [place] [address] Jan, [facility] [address] [id number] [place] [address] Jan, [facility] [address] [id number] [place] [address] Dec, [facility] [address] [id number] [place] [address] Nov, [facility] [address] [id number] [place] [address] Nov, [facility] [address] [id number] [place] [address] Nov, [facility] [address] [id number] [place] [address] Oct, [facility] [address] [id number] [place] [address] Aug, [facility] [address] [facility] [id number] [place] [address] Aug, [facility] [address] [facility] [id number] [place] [address] Aug, [facility] [address] [facility] [id number] [place] [address] Aug, [facility] [address] [facility] [id number] [place] [address] 26 Jun, 2012 [facility] [address] [facility] [id number] [place] [address] 10 Jun, 2012 [facility] [address] [facility] [id number] [place] [address] 08 Jun, 2012 [facility] [address] [facility] [id number] [place] [address] 07 Jun, 2012 [facility] [address] [facility] [id number] [place] [address] 05 Jun, 2011 [facility] [address] [facility] [id number] [place] [address] May, [facility] [address] [id number] [place] [address] 14 May, 2012 [facility] [address] [facility] [id number] [place] [address] 08 May, 2012 [facility] [address] [facility] [id number] [place] [address] May, [facility] [address] [id number] [place] [address] Mar, [facility] [address] [facility] [id number] [facility] [address] Mar, [facility] [address] [facility] [id number] [place] [address] February, [facility] [address] [facility] [id number] [place] [address] February, [facility] [address] [facility] [id number] [place] [address] Jan, [facility] [address] [id number] [place] [address] Jan, [facility] [address] [id number] [place] [address] Jan, [facility] [address] [facility] [id number] [place] [address] Jan, [facility] [address] [id number] [place] [address] Jan, [facility] [address] [id number] [place] [address] 20 Nov, 2011 [facility] [address] [id number] [place] [address] 15 Nov, 2011 [facility] [address] [id number] [place] [address] 10 Nov, 2011 [facility] [address] [id number] [place] [address] Oct, [facility] [address] [id number] [place] [address] Sep, [facility] [address] [id number] [place] [address] Sep, [facility] [address] [id number] [place] [address] Sep, [facility] [address] [facility] [id number] [place] [address] Aug, [facility] [address] [facility] [id number] [place] [address] Aug, [facility] [address] [facility] [id number] [place] [address] Jul, [facility] [address] [id number] [place] [address] Jul, [facility] [address] [facility] [id number] [place] [address] Jun, [facility] [address] [facility] [id number] [place] [address] Nov, [facility] [address] [facility] [id number] [place] [address] Aug, [facility] [address] [id number] [place] [address] Mar, [facility] [address] [facility] [id number] [place] [address] Nov, IMMUNIZATIONS No Known Immunizations SOCIAL HISTORY Never Assessed REASON FOR VISIT PLAN OF CARE VITAL SIGNS Height 65 in 2014-05-04 Weight 241.3 lbs 2014-05-04 Temperature 98.3 degrees Fahrenheit 2014-05-04 Heart Rate 76 bpm 2014-05-04 Respiratory Rate 20 2014-05-04 Blood pressure systolic 118 mmHg 2014-05-04 Blood pressure diastolic 72 mmHg 2014-05-04 MEDICATIONS Unknown Medications RESULTS No Results PROCEDURES Procedure Date Ordered Result Body Site DESTRUCT LESION, -May 04, 2014 INSTRUCTIONS MEDICATIONS ADMINISTERED No Known Medications [...]
--- OUTSIDE RECORDS SUMMARY | 2020-03-15 07:10 | XMS REPORT ---
Author Author Marleny DIAZ Organization 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 Operator Name Role Phone LIVE DIAZ Unavailable PROBLEMS Type Condition ICD9-CM Code [id number] Code Onset Dates Condition S tatus SNOMED Code Problem Major depressive disorder, recurrent episode, moderate deg ree F33.1 Active 68087067 Problem Chronic obstructive pulmonary disease, unspecified COPD ty pe J44.9 Active 06120437 Problem Mitral valve prolapse I34.1 Active 901676987 Problem Essential tremor G25.0 Active 609 536316 Problem Other chronic pain G89.29 Active 8 9042791 Problem Hx of fracture of left hip Z87.81 Act west 211856647 Problem Family history of colon cancer Z80.0 Active [id number] ALLERGIES No Information ENCOUNTERS Encounter Location Date Diagnosis [place] [address] [address] Nov, [place] [address] [address] Oct, [place] [address] [address] Oct, [place] [address] [address] Oct, Major depressive disorder, recurrent epi sode, moderate degree F33.1 [place] [address] [address] Sep, Lumbar radiculopathy, acute M54.16 [place] [address] [address] Sep, [place] [address] [address] Sep, Laryngitis J04.0 ; Asymptomatic menopaus al state Z78.0 and Hx of fracture of left hip Z87.81 [place] [address] [address] Sep, Major depressive disorder, recurrent epi sode, moderate degree F33.1 [place] [address] [address] Sep, [place] [address] [address] Aug, [place] [address] [address] Aug, [place] [address] [address] Aug, Family history of colon cancer Z80.0 ; C hronic obstructive pulmonary disease, unspecified COPD type J44.9 ; Essential tremor G25.0 ; Mitral valve prolapse I34.1 ; Other chronic pain G89.29 ; Hx of fracture of left hip Z87.81 and Encounter for immunization Z23 [place] [address] [address] Aug, Major depressive disorder, recurrent epi sode, moderate degree F33.1 [place] [address] [place] [address] Aug, Muscle spasm M62.838 ; Sever e back pain M54.9 and Hx of spinal surgery Z98.890 [address] [place] [address] Aug, [facility] [address] [facility] [id number] [place] [address] Aug, Sore throat J02.9 ; Cough R05 and Viral upper respiratory illness J06.9 [place] [address] [address] Aug, Major depressive disorder, recurrent epi sode, moderate degree F33.1 [address] [place] [address] Jul, [facility] [place] [address] [place] [address] Jul, [facility] [place] [address] [place] [address] Jul, [facility] [place] [address] [place] [address] Jul, [facility] [address] [id number] [place] [address] Jul, Major depressive disorder, recurrent epi sode, moderate degree F33.1 [facility] [id number] [place] [address] Jul, [facility] [place] [address] [place] [address] Jul, [facility] [id number] [place] [address] Jul, Encounter for immunization Z23 [facility] [place] [address] [place] [address] Jul, Restrictive airway disease J 98.4 [facility] [place] [address] [place] [address] Jul, Screening for breast cancer Z12.39 [facility] [address] [id number] [place] [address] Jul, Major depressive disorder, recurrent epi sode, moderate degree F33.1 [facility] [place] N[place] [address] [place] [address] Jun, [facility] [place] N[place] [address] [place] [address] Jun, [facility] [place] N[place] [address] [place] [address] Jun, Shortness of breath R06.02 [facility] [place] N[place] [address] [place] [address] Jun, Shortness of breath R06.02 [place] [address] [place] [address] Jun, Shortness of breath R06.02 a nd Restrictive lung disease J98.4 [place] [address] [address] Jun, Major depressive disorder, recurrent epi sode, moderate degree F33.[address] [address] Jun, [place] [address] [address] Jun, History of tobacco use Z87.891 ; Screeni ng for breast cancer Z12.39 and Trigger point M79.10 [place] [address] [place] [address] Jun, [address] [address] Jun, Major depressive disorder, r ecurrent episode, moderate degree F33.1 ; Trigger point M79.10 ; History of tobacco use Z87.891 and Screening for breast cancer Z12.39 [place] [address] [address] Jun, Major depressive disorder, recurrent epi sode, moderate degree F33.1 [place] [address] [address] May, Major depressive disorder, recurrent epi sode, moderate degree F33.1 [place] [address] [address] May, Essential tremor G25.0 ; Can dida rash of groin B37.89 and History of hypertension Z86.79 [place] [address] [place] [address] May, [address] [address] May, [facility] [address] [id number] [place] [address] May, Major depressive disorder, recurrent epi sode, moderate degree F33.1 [facility] [address] [place] [address] Apr, [facility] [place] [address] [facility] [id number] [place] [address] Apr, [facility] [address] [place] [address] Mar, [facility] [address] [place] [address] Mar, [facility] [address] [place] [address] Mar, [facility] [address] [place] [address] Mar, [facility] [address] [place] [address] Mar, [facility] [place] [address] [facility] [id number] [place] [address] Mar, Spinal stenosis of lumbar region without neurogenic claudication M48.061 [facility] [place] [address] [id number] [place] [address] Mar, Therapeutic drug monitoring Z51.81 [facility] [address] [place] [address] February, Therapeutic drug monitoring Z51.81 [facility] [address] [place] [address] Jan, [facility] [address] [place] [address] Jan, [facility] [address] [place] [address] Jan, [facility] [address] [place] [address] Dec, [facility] [place] [address] [place] [address] Dec, [facility] [place] [address] [place] [address] Dec, [facility] [place] [address] [place] [address] Nov, [facility] [place] [address] [place] [address] Nov, [facility] [place] [facility] [address] [place] [id number] [place] [id number] Sep, Dental examination Z01.20 [facility] [place] [facility] [address] [id number] 10 Jun, 2015 Dental examination V72.2 [facility] [address] [place] [id number] [place] [address] Jan, [facility] [address] [place] [address] [id number] [place] [address] Jan, [facility] [address] [place] [id number] [place] [address] Oct, [facility] [address] [address] Oct, [facility] [address] [place] [address] [id number] [place] [address] Jul, [facility] [address] [place] [id number] [place] [address] Jul, [facility] [address] [place] [id number] [place] [address] Jun, [facility] [address] [address] Jun, [facility] [address] [place] [address] [id number] [place] [address] May, [facility] [address] [place] [id number] [place] [address] May, [facility] [address] [id number] [place] [address] May, 2013 [facility] [address] [facility] [id number] [place] [address] May, 2013 [facility] [address] [facility] [id number] [place] [address] May, 2013 [facility] [address] [id number] [place] [address] May, 2013 [facility] [address] [facility] [id number] [place] [address] May, [facility] [address] [facility] [id number] [place] [address] May, [facility] [address] [id number] [place] [address] Apr, 2013 [facility] [address] [id number] [place] [address] Apr, 2013 [facility] [address] [id number] [place] [address] Apr, 2013 [facility] [address] [facility] [id number] [place] [address] Apr, 2013 [facility] [address] [id number] [place] [address] Apr, 2013 [facility] [address] [id number] [place] [address] Apr, 2013 [facility] [address] [id number] [place] [address] 15 Apr, 2013 [facility] [address] [facility] [id number] [place] [address] 15 Apr, 2013 [facility] [address] [id number] [place] [address] Apr, 2013 [facility] [address] [id number] [place] [address] Apr, 2013 [facility] [address] [id number] [place] [address] Apr, 2013 [facility] [address] [facility] [id number] [place] [address] Apr, 2013 [facility] [address] [facility] [id number] [place] [address] Apr, 2013 [facility] [address] [facility] [id number] [place] [address] Apr, 2013 [facility] [address] [facility] [id number] [place] [address] Apr, 2013 [facility] [address] [facility] [id number] [place] [address] Apr, 2013 [facility] [address] [facility] [id number] [place] [address] Apr, 2013 [facility] [address] [id number] [place] [address] Mar, [facility] [address] [id number] [place] [address] Mar, [facility] [address] [facility] [id number] [place] [address] Mar, [facility] [address] [id number] [place] [address] Mar, [facility] [address] [id number] [place] [address] Mar, [facility] [address] [id number] [place] [address] Mar, [facility] [address] [facility] [id number] [place] [address] Mar, [facility] [address] [facility] [id number] [place] [address] Mar, [facility] [address] [facility] [id number] [place] [address] Mar, [facility] [address] [id number] [place] [address] Mar, [facility] [address] [facility] [id number] [place] [address] Mar, [facility] [address] [id number] [place] [address] Mar, [facility] [address] [id number] [place] [address] February, [facility] [address] [id number] [place] [address] February, [facility] [address] [id number] [place] [address] February, [facility] [address] [id number] [place] [address] February, [facility] [address] [id number] [place] [address] February, [facility] [address] [id number] [place] [address] February, [facility] [address] [id number] [place] [address] February, [facility] [address] [id number] [place] [address] February, [facility] [address] [id number] [place] [address] February, [facility] [address] [id number] [place] [address] February, [facility] [address] [id number] [place] [address] February, [facility] [address] [id number] [place] [address] February, [facility] [address] [id number] [place] [address] Jan, [facility] [address] [id number] [place] [address] Jan, [facility] [address] [id number] [place] [address] Jan, [facility] [address] [id number] [place] [address] Jan, [facility] [address] [id number] [place] [address] Jan, [facility] [address] [id number] [place] [address] Jan, [facility] [address] [id number] [place] [address] Dec, [facility] [address] [id number] [place] [address] Dec, [facility] [address] [id number] [place] [address] Dec, [facility] [address] [id number] [place] [address] Dec, [facility] [address] [id number] [place] [address] Dec, [facility] [address] [id number] [place] [address] Dec, [facility] [address] [id number] [place] [address] Nov, [facility] [address] [id number] [place] [address] Nov, [facility] [address] [id number] [place] [address] Nov, [facility] [address] [id number] [place] [address] Nov, [facility] [address] [id number] [place] [address] Oct, [facility] [address] [id number] [place] [address] Oct, [facility] [address] [id number] [place] [address] Oct, [facility] [address] [id number] [place] [address] Oct, [facility] [address] [id number] [place] [address] Oct, [facility] [address] [id number] [place] [address] Oct, [facility] [address] [id number] [place] [address] Oct, [facility] [address] [id number] [place] [address] Oct, [facility] [address] [id number] [place] [address] Oct, [facility] [address] [id number] [place] [address] Sep, [facility] [address] [id number] [place] [address] Sep, [facility] [address] [id number] [place] [address] Sep, [facility] [address] [id number] [place] [address] Sep, [facility] [address] [id number] [place] [address] 16 Sep, 2013 [facility] [address] [id number] [place] [address] Sep, [facility] [address] [id number] [place] [address] Sep, [facility] [address] [id number] [place] [address] Aug, [facility] [address] [id number] [place] [address] Aug, [facility] [address] [id number] [place] [address] Jul, [facility] [address] [id number] [place] [address] Jul, [facility] [address] [id number] [place] [address] 14 Jul, 2013 [facility] [address] [facility] [id number] [place] [address] 14 Jul, 2013 [facility] [address] [id number] [place] [address] 12 Jul, 2013 [facility] [address] [id number] [place] [address] 12 Jul, 2013 [facility] [address] [id number] [place] [address] 25 Jun, 2013 [facility] [address] [id number] [place] [address] 16 Jun, 2013 [facility] [address] [id number] [place] [address] Jun, [facility] [address] [id number] [place] [address] May, [facility] [address] [id number] [place] [address] May, [facility] [address] [id number] [place] [address] Apr, [facility] [address] [id number] [place] [address] Apr, [facility] [address] [id number] [place] [address] Apr, [facility] [address] [id number] [place] [address] Mar, [facility] [address] [id number] [place] [address] Mar, [facility] [address] [id number] [place] [address] February, [facility] [address] [id number] [place] [address] February, [facility] [address] [id number] [place] [address] Jan, [facility] [address] [id number] [place] [address] Jan, [facility] [address] [id number] [place] [address] Dec, [facility] [address] [id number] [place] [address] Nov, [facility] [address] [id number] [place] [address] Nov, [facility] [address] [id number] [place] [address] Nov, [facility] [address] [id number] [place] [address] Oct, [facility] [address] [id number] [place] [address] Aug, [facility] [id number] [place] [address] Aug, [facility] [address] [id number] [place] [address] 08 Aug, 2012 [facility] [id number] [place] [address] 08 Aug, 2012 [facility] [address] [id number] [place] [address] 26 Jun, 2012 [facility] [address] [id number] [place] [address] 10 Jun, 2012 [facility] [address] [id number] [place] [address] 08 Jun, 2012 [facility] [address] [id number] [place] [address] 07 Jun, 2012 [facility] [address] [id number] [place] [address] 05 Jun, 2011 [facility] [address] [id number] [place] [address] May, [facility] [address] [id number] [place] [address] 14 May, 2012 [facility] [address] [facility] [id number] [place] [address] May, [facility] [address] [id number] [place] [address] May, [facility] [address] [id number] [place] [address] Mar, [facility] [address] [id number] [place] [address] Mar, [facility] [address] [id number] [place] [address] February, [facility] [address] [id number] [place] [address] February, [facility] [address] [id number] [place] [address] Jan, [facility] [address] [id number] [place] [address] Jan, [facility] [address] [id number] [place] [address] Jan, [facility] [address] [id number] [place] [address] Jan, [facility] [address] [id number] [place] [address] Jan, [facility] [address] [id number] [place] [address] 20 Nov, 2011 [facility] [address] [id number] [place] [address] 15 Nov, 2011 [facility] [address] [id number] [place] [address] 10 Nov, 2011 [facility] [address] [id number] [place] [address] Oct, [facility] [address] [id number] [place] [address] Sep, [facility] [address] [id number] [place] [address] Sep, [facility] [address] [id number] [place] [address] Sep, [facility] [address] [id number] [place] [address] Aug, [facility] [address] [id number] [place] [address] Aug, [facility] [address] [id number] [place] [address] Jul, [facility] [address] [id number] [place] [address] Jul, [facility] [address] [id number] [place] [address] Jun, [facility] [address] [id number] [place] [address] Nov, [facility] [address] [id number] [place] [address] Aug, [facility] [address] [id number] [place] [address] Mar, [facility] [address] [id number] [place] [address] Nov, IMMUNIZATIONS No Known Immunizations SOCIAL HISTORY [...]
--- OUTSIDE RECORDS SUMMARY | 2020-03-15 07:10 | XMS REPORT ---
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 Name Role Phone LIVE DIAZ Unavailable PROBLEMS Type Condition ICD9-CM Code IBG01-EB Code Onset Dates Condition S tatus SNOMED Code Problem Major depressive disorder, recurrent episode, moderate deg ree F33.1 Active 16741979 Problem Chronic obstructive pulmonary disease, unspecified COPD ty pe J44.9 Active 49128670 Problem Mitral valve prolapse I34.1 Active 538535082 Problem Essential tremor G25.0 Active 609 256212 Problem Other chronic pain G89.29 Active 8 2402314 Problem Hx of fracture of left hip Z87.81 Act west 097390296 Problem Family history of colon cancer Z80.0 Active [id number] ALLERGIES No Information ENCOUNTERS Encounter Location Date Diagnosis [place] [address] [address] Nov, [place] [address] [address] Oct, [place] [address] [address] Oct, [place] [address] [address] Oct, Major depressive disorder, recurrent epi sode, moderate degree F33.1 [place] [address] [address] Sep, Lumbar radiculopathy, acute M54.16 [place] [address] [address] Sep, [place] [address] [address] Sep, Laryngitis J04.0 ; Asymptomatic menopaus al state Z78.0 and Hx of fracture of left hip Z87.81 [place] [address] [address] Sep, Major depressive disorder, recurrent epi sode, moderate degree F33.1 [place] [address] [address] Sep, [place] [address] [address] Aug, [place] [address] [address] Aug, [place] [address] [address] Aug, Family history of colon cancer Z80.0 ; C hronic obstructive pulmonary disease, unspecified COPD type J44.9 ; Essential tremor G25.0 ; Mitral valve prolapse I34.1 ; Other chronic pain G89.29 ; Hx of fracture of left hip Z87.81 and Encounter for immunization Z23 [place] [address] [address] Aug, Major depressive disorder, recurrent epi sode, moderate degree F33.1 [place] [address] [place] [address] Aug, Muscle spasm M62.838 ; Sever e back pain M54.9 and Hx of spinal surgery Z98.890 [address] [place] [address] Aug, [facility] [address] [facility] [id number] [place] [address] Aug, Sore throat J02.9 ; Cough R05 and Viral upper respiratory illness J06.9 [place] [address] [address] Aug, Major depressive disorder, recurrent epi sode, moderate degree F33.1 [address] [place] [address] Jul, [facility] [place] [address] [place] [address] Jul, [facility] [place] [address] [place] [address] Jul, [facility] [place] [address] [place] [address] Jul, [facility] [address] [place] [address] [id number] [place] [address] Jul, Major depressive disorder, recurrent epi sode, moderate degree F33.1 [facility] [address] [place] [id number] [place] [address] Jul, [facility] [place] [address] [place] [address] Jul, [facility] [address] [place] [address] [id number] [place] [address] Jul, Encounter for immunization Z23 [facility] [place] [address] [place] [address] Jul, Restrictive airway disease J 98.4 [facility] [place] [address] [place] [address] Jul, Screening for breast cancer Z12.39 [facility] [address] [id number] [place] [address] Jul, Major depressive disorder, recurrent epi sode, moderate degree F33.1 [facility] [place] [address] [place] [address] Jun, [facility] [place] [address] [place] [address] Jun, [facility] [place] [address] [place] [address] Jun, Shortness of breath R06.02 [facility] [place] [address] [place] [address] Jun, Shortness of breath R06.02 [place] [address] [address] [address] Jun, Shortness of breath R06.02 a nd Restrictive lung disease J98.4 [place] [address] [address] Jun, Major depressive disorder, recurrent epi sode, moderate degree F33.[address] [address] Jun, [place] [address] [address] Jun, History of tobacco use Z87.891 ; Screeni ng for breast cancer Z12.39 and Trigger point M79.10 [place] [address] [address] [address] Jun, [address] [address] Jun, Major depressive disorder, r ecurrent episode, moderate degree F33.1 ; Trigger point M79.10 ; History of tobacco use Z87.891 and Screening for breast cancer Z12.39 [place] [address] [address] Jun, Major depressive disorder, recurrent epi sode, moderate degree F33.1 [place] [address] [address] May, Major depressive disorder, recurrent epi sode, moderate degree F33.1 [place] [address] [address] May, Essential tremor G25.0 ; Can dida rash of groin B37.89 and History of hypertension Z86.79 [place] [address] [address] [address] May, [address] [address] May, [facility] [address] [id number] [place] [address] May, Major depressive disorder, recurrent epi sode, moderate degree F33.1 [facility] [address] [place] [address] Apr, [facility] [place] [address] [facility] [id number] [place] [address] Apr, [facility] [address] [place] [address] Mar, [facility] [address] [place] [address] Mar, [facility] [address] [place] [address] Mar, [facility] [address] [place] [address] Mar, [facility] [address] [place] [address] Mar, [facility] [place] [address] [facility] [id number] [place] [address] Mar, Spinal stenosis of lumbar region without neurogenic claudication M48.061 [facility] [place] [address] [id number] [place] [address] Mar, Therapeutic drug monitoring Z51.81 [facility] [address] [place] [address] February, Therapeutic drug monitoring Z51.81 [facility] [address] [place] [address] Jan, [facility] [address] [place] [address] Jan, [facility] [address] [place] [address] Jan, [facility] [address] [place] [address] Dec, [facility] [place] [address] [place] [address] Dec, [facility] [place] [address] [place] [address] Dec, [facility] [place] [address] [place] [address] Nov, [facility] [place] [address] [place] [address] Nov, [facility] [address] [place] [id number] [place] [id number] Sep, Dental examination Z01.20 [facility] [address] [id number] Jun, 2015 Dental examination V72.2 [facility] [address] [place] [id number] [place] [address] Jan, [facility] [address] [place] [id number] [place] [address] Jan, [facility] [address] [place] [id number] [place] [address] Oct, [facility] [address] [address] Oct, [facility] [address] [place] [id number] [place] [address] Jul, [facility] [address] [place] [id number] [place] [address] Jul, [facility] [address] [place] [address] [id number] [place] [address] Jun, [facility] [address] [address] Jun, [facility] [address] [place] [id number] [place] [address] May, [facility] [address] [place] [id number] [place] [address] May, [facility] [address] [id number] [place] [address] May, 2013 [facility] [address] [facility] [id number] [facility] [place] [address] May, 2013 [facility] [address] [facility] [id number] [place] [address] May, 2013 [facility] [address] [id number] [place] [address] May, 2013 [facility] [address] [facility] [id number] [place] [address] May, [facility] [address] [facility] [id number] [place] [address] May, [facility] [address] [id number] [place] [address] Apr, 2013 [facility] [address] [id number] [place] [address] Apr, 2013 [facility] [address] [id number] [place] [address] Apr, 2013 [facility] [address] [facility] [id number] [place] [address] Apr, 2013 [facility] [address] [id number] [place] [address] Apr, 2013 [facility] [address] [id number] [place] [address] Apr, 2013 [facility] [address] [id number] [place] [address] 15 Apr, 2013 [facility] [address] [facility] [id number] [place] [address] 15 Apr, 2013 [facility] [address] [id number] [place] [address] Apr, 2013 [facility] [address] [id number] [place] [address] Apr, 2013 [facility] [address] [id number] [place] [address] Apr, 2013 [facility] [address] [facility] [id number] [place] [address] Apr, 2013 [facility] [address] [facility] [id number] [facility] [place] [address] Apr, 2013 [facility] [address] [facility] [id number] [place] [address] Apr, 2013 [facility] [address] [facility] [id number] [facility] [place] [address] Apr, 2013 [facility] [address] [facility] [id number] [place] [address] Apr, 2013 [facility] [address] [facility] [id number] [place] [address] Apr, 2013 [facility] [address] [id number] [place] [address] Mar, [facility] [address] [id number] [place] [address] Mar, [facility] [address] [facility] [id number] [place] [address] Mar, [facility] [address] [id number] [place] [address] Mar, [facility] [address] [id number] [place] [address] Mar, [facility] [address] [id number] [place] [address] Mar, [facility] [address] [facility] [id number] [place] [address] Mar, [facility] [address] [facility] [id number] [place] [address] Mar, [facility] [address] [facility] [id number] [place] [address] Mar, [facility] [address] [id number] [place] [address] Mar, [facility] [address] [facility] [id number] [facility] [place] [address] Mar, [facility] [address] [id number] [facility] [place] [address] Mar, [facility] [address] [id number] [place] [address] February, [facility] [address] [id number] [place] [address] February, [facility] [address] [id number] [place] [address] February, [facility] [address] [id number] [place] [address] February, [facility] [address] [id number] [place] [address] February, [facility] [address] [id number] [place] [address] February, [facility] [address] [id number] [place] [address] February, [facility] [address] [id number] [place] [address] February, [facility] [address] [id number] [place] [address] February, [facility] [address] [id number] [place] [address] February, [facility] [address] [id number] [place] [address] February, [facility] [address] [id number] [place] [address] February, [facility] [address] [id number] [place] [address] Jan, [facility] [address] [id number] [place] [address] Jan, [facility] [address] [id number] [place] [address] Jan, [facility] [address] [id number] [place] [address] Jan, [facility] [address] [id number] [place] [address] Jan, [facility] [address] [id number] [place] [address] Jan, [facility] [address] [id number] [place] [address] Dec, [facility] [address] [id number] [place] [address] Dec, [facility] [address] [id number] [place] [address] Dec, [facility] [address] [id number] [place] [address] Dec, [facility] [address] [id number] [place] [address] Dec, [facility] [address] [id number] [place] [address] Dec, [facility] [address] [id number] [place] [address] Nov, [facility] [address] [id number] [place] [address] Nov, [facility] [address] [id number] [place] [address] Nov, [facility] [address] [id number] [place] [address] Nov, [facility] [address] [id number] [place] [address] Oct, [facility] [address] [id number] [place] [address] Oct, [facility] [address] [id number] [place] [address] Oct, [facility] [address] [id number] [place] [address] Oct, [facility] [address] [id number] [place] [address] Oct, [facility] [address] [id number] [place] [address] Oct, [facility] [address] [id number] [place] [address] Oct, [facility] [address] [id number] [place] [address] Oct, [facility] [address] [id number] [place] [address] Oct, [facility] [address] [id number] [place] [address] Sep, [facility] [address] [id number] [place] [address] Sep, [facility] [address] [id number] [place] [address] Sep, [facility] [address] [id number] [place] [address] Sep, [facility] [address] [id number] [place] [address] 16 Sep, 2013 [facility] [address] [id number] [place] [address] Sep, [facility] [address] [id number] [place] [address] Sep, [facility] [address] [id number] [place] [address] Aug, [facility] [address] [id number] [place] [address] Aug, [facility] [address] [id number] [place] [address] Jul, [facility] [address] [id number] [place] [address] Jul, [facility] [address] [id number] [place] [address] 14 Jul, 2013 [facility] [address] [facility] [id number] [place] [address] 14 Jul, 2013 [facility] [address] [id number] [place] [address] 12 Jul, 2013 [facility] [address] [id number] [place] [address] 12 Jul, 2013 [facility] [address] [id number] [place] [address] 25 Jun, 2013 [facility] [address] [id number] [place] [address] 16 Jun, 2013 [facility] [address] [id number] [place] [address] Jun, [facility] [address] [id number] [place] [address] May, [facility] [address] [id number] [place] [address] May, [facility] [address] [id number] [place] [address] Apr, [facility] [address] [id number] [place] [address] Apr, [facility] [address] [id number] [place] [address] Apr, [facility] [address] [id number] [place] [address] Mar, [facility] [address] [id number] [place] [address] Mar, [facility] [address] [id number] [place] [address] February, [facility] [address] [id number] [place] [address] February, [facility] [address] [id number] [place] [address] Jan, [facility] [address] [id number] [place] [address] Jan, [facility] [address] [id number] [place] [address] Dec, [facility] [address] [id number] [place] [address] Nov, [facility] [id number] [place] [address] Nov, [facility] [id number] [place] [address] Nov, [facility] [id number] [place] [address] Oct, [facility] [id number] [place] [address] Aug, [facility] [id number] [place] [address] Aug, [facility] [id number] [place] [address] 08 Aug, 2012 [facility] [id number] [place] [address] 08 Aug, 2012 [facility] [id number] [place] [address] 26 Jun, 2012 [facility] [id number] [place] [address] 10 Jun, 2012 [facility] [id number] [place] [address] 08 Jun, 2012 [facility] [id number] [place] [address] 07 Jun, 2012 [facility] [id number] [place] [address] 05 Jun, 2011 [facility] [id number] [place] [address] May, [facility] [id number] [place] [address] 14 May, 2012 [facility] [address] [facility] [id number] [place] [address] May, [facility] [id number] [place] [address] May, [facility] [id number] [place] [address] Mar, [facility] [id number] [place] [address] Mar, [facility] [id number] [place] [address] February, [facility] [id number] [place] [address] February, [facility] [id number] [place] [address] Jan, [facility] [id number] [place] [address] Jan, [facility] [id number] [place] [address] Jan, [facility] [id number] [place] [address] Jan, [facility] [id number] [place] [address] Jan, [facility] [id number] [place] [address] 20 Nov, 2011 [facility] [id number] [place] [address] 15 Nov, 2011 [facility] [id number] [place] [address] 10 Nov, 2011 [facility] [id number] [place] [address] Oct, [facility] [id number] [place] [address] Sep, [facility] [id number] [place] [address] Sep, [facility] [id number] [place] [address] Sep, [facility] [id number] [place] [address] Aug, [facility] [id number] [place] [address] Aug, [facility] [id number] [place] [address] Jul, [facility] [id number] [place] [address] Jul, [facility] [id number] [place] [address] Jun, [facility] [id number] [place] [address] Nov, [facility] [id number] [place] [address] Aug, [facility] [id number] [place] [address] Mar, [facility] [id number] [place] [address] Nov, IMMUNIZATIONS No Known Immunizations SOCIAL HISTORY [...]
--- OUTSIDE RECORDS SUMMARY | 2020-03-15 07:10 | XMS REPORT ---
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 Name Role Phone LIVE DIAZ Unavailable PROBLEMS Type Condition ICD9-CM Code [id number] Code Onset Dates Condition S tatus SNOMED Code Problem Major depressive disorder, recurrent episode, moderate deg ree F33.1 Active 12651168 Problem Chronic obstructive pulmonary disease, unspecified COPD ty pe J44.9 Active 50584431 Problem Mitral valve prolapse I34.1 Active 446037661 Problem Essential tremor G25.0 Active 609 933796 Problem Other chronic pain G89.29 Active 8 8310096 Problem Hx of fracture of left hip Z87.81 Act west 028823777 Problem Family history of colon cancer Z80.0 Active [id number] ALLERGIES No Information ENCOUNTERS Encounter Location Date Diagnosis [place] [address] [address] Oct, [place] [address] [address] Oct, [place] [address] [address] Oct, [place] [address] [address] Sep, Lumbar radiculopathy, acute M54.16 [place] [address] [address] Sep, [place] [address] [address] Sep, Laryngitis J04.0 ; Asymptomatic menopaus al state Z78.0 and Hx of fracture of left hip Z87.81 [place] [address] [address] Sep, Major depressive disorder, recurrent epi sode, moderate degree F33.1 [place] [id number] [place] [id number] [place] [address] Sep, [facility] [address] [place] [id number] [place] [address] Aug, [place] [address] [address] Aug, [place] [address] [address] Aug, Family history of colon cancer Z80.0 ; C hronic obstructive pulmonary disease, unspecified COPD type J44.9 ; Essential tremor G25.0 ; Mitral valve prolapse I34.1 ; Other chronic pain G89.29 ; Hx of fracture of left hip Z87.81 and Encounter for immunization Z23 [place] [address] [address] Aug, Major depressive disorder, recurrent epi sode, moderate degree F33.1 [address] [place] [address] Aug, Muscle spasm M62.838 ; Sever e back pain M54.9 and Hx of spinal surgery Z98.890 [address] [place] [address] Aug, [facility] [address] [facility] [id number] [place] [address] Aug, Sore throat J02.9 ; Cough R05 and Viral upper respiratory illness J06.9 [place] [address] [address] [id number] [place] [address] Aug, Major depressive disorder, recurrent epi sode, moderate degree F33.[address] [place] [address] Jul, [address] [place] [address] Jul, [address] [place] [address] Jul, [address] [place] [address] Jul, [facility] [address] [id number] [place] [address] Jul, Major depressive disorder, recurrent epi sode, moderate degree F33.1 [facility] [address] [id number] [place] [address] Jul, [address] [place] [address] Jul, [facility] [address] [id number] [place] [address] Jul, Encounter for immunization Z23 [address] [place] [address] Jul, Restrictive airway disease J 98.[address] [place] [address] Jul, Screening for breast cancer Z12.39 [facility] [address] [id number] [place] [address] Jul, Major depressive disorder, recurrent epi sode, moderate degree F33.1 [facility] [place] [address] [place] [address] Jun, [facility] [place] [address] [place] [address] Jun, [address] [place] [address] Jun, Shortness of breath R06.02 [facility] [place] [address] [place] [address] Jun, Shortness of breath R06.02 [facility] [place] [address] [place] [address] Jun, Shortness of breath R06.02 a nd Restrictive lung disease J98.4 [place] [address] [place] [id number] [place] [address] Jun, Major depressive disorder, recurrent epi sode, moderate degree F33.1 [place] [address] [place] [address] Jun, [place] [address] [address] Jun, History of tobacco use Z87.891 ; Screeni ng for breast cancer Z12.39 and Trigger point M79.10 [place] [address] [place] [address] Jun, [place] [address] [place] [address] Jun, Major depressive disorder, r ecurrent episode, moderate degree F33.1 ; Trigger point M79.10 ; History of tobacco use Z87.891 and Screening for breast cancer Z12.39 [place] [address] [address] Jun, Major depressive disorder, recurrent epi sode, moderate degree F33.1 [place] [address] [address] May, Major depressive disorder, recurrent epi sode, moderate degree F33.1 [place] [address] [place] [address] May, Essential tremor G25.0 ; Can dida rash of groin B37.89 and History of hypertension Z86.79 [place] [address] [place] [address] May, [place] [address] [address] May, [place] [address] [address] May, Major depressive disorder, recurrent epi sode, moderate degree F33.1 [facility] [address] [place] [address] [address] [place] [address] Apr, [facility] [place] [address] [id number] [place] [address] Apr, [facility] [address] [place] [address] Mar, [facility] [place] [facility] [address] [place], [place] [id number] [place] [address] Mar, [facility] [place] [facility] [address] [place], [place] [id number] [place] [address] Mar, [facility] [place] [facility] [address] [place] [address] Mar, [facility] [place] [facility] [address] [place] [address] Mar, [facility] [place] [address] [id number] [place] [address] Mar, Spinal stenosis of lumbar region without neurogenic claudication M48.061 [facility] [place] [address] [id number] [place] [address] Mar, Therapeutic drug monitoring Z51.81 [facility] [place] [facility] [address] [place] [address] February, Therapeutic drug monitoring Z51.81 [facility] [place] [address] [place] [address] Jan, [facility] [place] [facility] [address] [place] [address] [address] [place] [address] Jan, [facility] [place] [facility] [address] [place] [address] [address] [place] [address] Jan, [facility] [place] [facility] [address] [place] [address] [address] [place] [address] Dec, [facility] [place] [facility] [address] [place], [place] [id number] [place] [address] Dec, [facility] [place] [facility] [address] [place] [address] Dec, [facility] [place] [facility] [facility] [address] [facility] [address] [place] [address] Nov, [facility] [place] [facility] [facility] [address] [facility] [address] [place] [address] Nov, [facility] [address] [place] [id number] [place] [id number] Sep, Dental examination Z01.20 [facility] [address] [id number] [place] [id number] 10 Jun, 2015 Dental examination V72.2 [facility] [address] [place] [address] [id number] [place] [address] Jan, [facility] [address] [place] [id number] [place] [address] Jan, [facility] [address] [address] Oct, [facility] [address] [place] [id number] [place] [address] Oct, [facility] [address] [address] Jul, [facility] [address] [place] [id number] [place] [address] Jul, [facility] [address] [place] [id number] [place] [address] Jun, [facility] [address] [place] [address] [id number] [place] [address] Jun, [facility] [address] [place] [address] [id number] [place] [address] May, [facility] [address] [place] [id number] [place] [address] May, [facility] [id number] [place] [address] May, [facility] [address] [id number] [place] [address] May, 2013 [facility] [place] [facility] [address] [facility] 2] [id number] [facility] [place] [address] May, 2013 [facility] [place] [facility] [address] [facility] 2] [id number] [facility] [address] May, 2013 [facility] [place] [facility] [address] [id number] [facility] [address] May, 2013 [facility] [place] [facility] [address] [facility] 2] [id number] [facility] [place] [address] May, 2013 [facility] [place] [facility] [address] [facility] 2] [id number] [facility] [place] [address] Apr, 2013 [facility] [place] [facility] [address] [facility] 2] [id number] [place] [address] Apr, 2013 [facility] [place] [facility] [address] [id number] [place] [address] Apr, 2013 [facility] [place] [facility] [address] [id number] [facility] [address] Apr, 2013 [facility] [place] [facility] [address] [facility] 2] [id number] [facility] [address] Apr, 2013 [facility] [place] [facility] [address] [id number] [place] [address] Apr, 2013 [facility] [place] [facility] [address] [id number] [place] [address] 15 Apr, 2013 [facility] [place] [facility] [address] [id number] [place] [address] 15 Apr, 2013 [facility] [place] [facility] [address] [facility] 2] [id number] [facility] [place] [address] Apr, 2013 [facility] [place] [facility] [address] [id number] [place] [address] Apr, 2013 [facility] [place] [facility] [address] [facility] 2] [id number] [place] [address] Apr, 2013 [facility] [place] [facility] [address] [id number] [facility] [address] Apr, 2013 [facility] [place] [facility] [address] [facility] 2] [id number] [place] [address] Apr, 2013 [facility] [place] [facility] [address] [facility] 2] [id number] [place] [address] Apr, [facility] [place] [facility] [address] [facility] 2] [id number] [place] [address] Apr, [facility] [place] [facility] [address] [id number] [place] [address] Apr, [facility] [place] [facility] [address] [facility] 2] [id number] [place] [address] Apr, [facility] [place] [facility] [address] [facility] 2] [id number] [place] [address] Mar, [facility] [place] [facility] [address] [id number] [place] [address] Mar, [facility] [place] [facility] [address] [id number] [place] [address] Mar, [facility] [place] [facility] [address] [id number] [place] [address] Mar, [facility] [place] [facility] [address] [id number] [place] [address] Mar, [facility] [place] [facility] [address] [id number] [place] [address] Mar, [facility] [place] [facility] [address] [id number] [place] [address] Mar, [facility] [place] [facility] [address] [id number] [place] [address] Mar, [facility] [place] [facility] [address] [id number] [place] [address] Mar, [facility] [place] [facility] [address] [id number] [place] [address] Mar, [facility] [place] [facility] [address] [id number] [place] [address] Mar, [facility] [place] [facility] [address] [id number] [place] [address] Mar, [facility] [place] [facility] [address] [id number] [place] [address] February, [facility] [place] [facility] [address] [id number] [place] [address] February, [facility] [place] [facility] [address] [id number] [place] [address] February, [facility] [place] [facility] [address] [id number] [place] [address] February, [facility] [place] [facility] [address] [id number] [place] [address] February, [facility] [place] [facility] [address] [id number] [place] [address] February, [facility] [place] [facility] [address] [id number] [place] [address] February, [facility] [place] [facility] [address] [id number] [place] [address] February, [facility] [place] [facility] [address] [id number] [place] [address] February, [facility] [place] [facility] [address] [id number] [place] [address] February, [facility] [place] [facility] [address] [id number] [place] [address] February, [facility] [place] [facility] [address] [id number] [place] [address] February, [facility] [place] [facility] [address] [id number] [place] [address] Jan, [facility] [place] [facility] [address] [id number] [place] [address] Jan, [facility] [place] [facility] [address] [id number] [place] [address] Jan, [facility] [place] [facility] [address] [id number] [place] [address] Jan, [facility] [place] [facility] [address] [id number] [place] [address] Jan, [facility] [place] [facility] [address] [facility] 2] [id number] [place] [address] Jan, [facility] [place] [facility] [address] [id number] [place] [address] Dec, [facility] [place] [facility] [address] [id number] [place] [address] Dec, [facility] [place] [facility] [address] [id number] [place] [address] Dec, [facility] [place] [facility] [address] [id number] [place] [address] Dec, [facility] [place] [facility] [address] [id number] [place] [address] Dec, [facility] [place] [facility] [address] [id number] [place] [address] Dec, [facility] [place] [facility] [address] [id number] [place] [address] Nov, [facility] [place] [facility] [address] [id number] [place] [address] Nov, [facility] [place] [facility] [address] [id number] [place] [address] Nov, [facility] [place] [facility] [address] [id number] [place] [address] Nov, [facility] [place] [facility] [address] [id number] [place] [address] Oct, [facility] [place] [facility] [address] [id number] [place] [address] Oct, [facility] [place] [facility] [address] [id number] [place] [address] Oct, [facility] [place] [facility] [address] [id number] [place] [address] Oct, [facility] [place] [facility] [address] [id number] [place] [address] Oct, [facility] [place] [facility] [address] [id number] [place] [address] Oct, [facility] [place] [facility] [address] [id number] [place] [address] Oct, [facility] [place] [facility] [address] [id number] [place] [address] Oct, [facility] [place] [facility] [address] [id number] [place] [address] Oct, [facility] [place] [facility] [address] [id number] [place] [address] Sep, [facility] [place] [facility] [address] [id number] [place] [address] Sep, [facility] [place] [facility] [address] [id number] [place] [address] Sep, [facility] [place] [facility] [address] [id number] [place] [address] Sep, [facility] [place] [facility] [address] [id number] [place] [address] 16 Sep, 2013 [facility] [place] [facility] [address] [id number] [place] [address] Sep, [facility] [place] [facility] [address] [id number] [place] [address] Sep, [facility] [place] [facility] [address] [id number] [place] [address] Aug, [facility] [place] [facility] [address] [id number] [place] [address] Aug, [facility] [place] [facility] [address] [id number] [place] [address] 28 Jul, 2013 [facility] [place] [facility] [id number] [place] [address] 28 Jul, 2013 [facility] [place] [facility] [address] [id number] [place] [address] 14 Jul, 2013 [facility] [place] [facility] [address] [id number] [place] [address] 14 Jul, 2013 [facility] [place] [facility] [address] [id number] [place] [address] Jul, [facility] [place] [facility] [address] [id number] [place] [address] Jul, [facility] [place] [facility] [address] [id number] [place] [address] 25 Jun, 2013 [facility] [place] [facility] [address] [id number] [place] [address] 16 Jun, 2013 [facility] [place] [facility] [address] [facility] 2] [id number] [place] [address] Jun, [facility] [place] [facility] [address] [id number] [place] [address] May, [facility] [place] [facility] [address] [id number] [place] [address] May, [facility] [place] [facility] [address] [id number] [place] [address] Apr, [facility] [place] [facility] [address] [id number] [place] [address] Apr, [facility] [place] [facility] [address] [id number] [place] [address] Apr, [facility] [place] [facility] [address] [id number] [place] [address] Mar, [facility] [place] [facility] [address] [id number] [place] [address] Mar, [facility] [place] [facility] [address] [id number] [place] [address] February, [facility] [place] [facility] [address] [id number] [place] [address] February, [facility] [place] [facility] [address] [id number] [place] [address] Jan, [facility] [place] [facility] [address] [id number] [place] [address] Jan, [facility] [place] [facility] [address] [id number] [place] [address] Dec, [facility] [place] [facility] [address] [id number] [place] [address] Nov, [facility] [address] [id number] [place] [address] Nov, [facility] [address] [id number] [place] [address] Nov, [facility] [address] [id number] [place] [address] Oct, [facility] [address] [id number] [place] [address] Aug, [facility] [address] [id number] [place] [address] Aug, [facility] [address] [id number] [place] [address] Aug, [facility] [address] [id number] [place] [address] Aug, [facility] [address] [id number] [place] [address] 26 Jun, 2012 [facility] [address] [id number] [place] [address] 10 Jun, 2012 [facility] [address] [id number] [place] [address] 08 Jun, 2012 [facility] [address] [id number] [place] [address] 07 Jun, 2012 [facility] [address] [id number] [place] [address] 05 Jun, 2012 [facility] [address] [id number] [place] [address] May, [facility] [address] [id number] [place] [address] 14 May, 2012 [facility] [address] [id number] [place] [address] 08 May, 2012 [facility] [address] [id number] [place] [address] May, [facility] [address] [id number] [place] [address] Mar, [facility] [address] [id number] [place] [address] Mar, [facility] [address] [id number] [place] [address] February, [facility] [address] [id number] [place] [address] February, [facility] [address] [id number] [place] [address] Jan, [facility] [address] [id number] [place] [address] Jan, [facility] [address] [id number] [place] [address] Jan, [facility] [address] [id number] [place] [address] Jan, [facility] [address] [id number] [place] [address] Jan, [facility] [address] [id number] [place] [address] 20 Nov, 2011 [facility] [address] [id number] [place] [address] 15 Nov, 2011 [facility] [address] [id number] [place] [address] 10 Nov, 2011 [facility] [address] [id number] [place] [address] Oct, [facility] [address] [id number] [place] [address] 14 Sep, 2011 [facility] [address] [id number] [place] [address] Sep, [facility] [address] [id number] [place] [address] Sep, [facility] [address] [id number] [place] [address] Aug, [facility] [address] [id number] [place] [address] Aug, [facility] [address] [id number] [place] [address] Jul, [facility] [address] [id number] [place] [address] Jul, [facility] [address] [id number] [place] [address] Jun, [facility] [address] [id number] [place] [address] Nov, [facility] [address] [id number] [place] [address] Aug, [facility] [address] [id number] [place] [address] Mar, [facility] [address] [id number] [place] [address] Nov, IMMUNIZATIONS No Known Immunizations SOCIAL HISTORY [...]
[2020-03-15] MEDS ORDERED: LACTATED RINGERS 1,000 ML IV STA (07:14)
--- OUTSIDE RECORDS SUMMARY | 2020-03-15 07:14 | XMS REPORT | Continuity of Care Document ---
Author Organization Unknown Address Unknown Phone Unavailable Allergies Active Description Code Type Severity Reaction Onset Reported/Identified Relationship to Patient Clinical Status Yes codeine Drug Allergy N/A N/A 12/17/2008 Yes Percocet Drug Allergy N/A N/A 12/17/2008 Yes codeine Drug Allergy 12/17/2008 Yes Percocet 7.5/325 Drug Allergy 12/17/2008 Yes acetaminophen [id number] Gustavo g Allergy Mild N/A 09/29/2011 Yes oxycodone HCl [id number] Gustavo g Allergy Mild N/A 09/29/2011 Yes Sulfa (Sulfonamide Antibiotics) Drug Allergy N/A N/A 04/09/2013 Yes No Known Allergies [id number] Drug Allergy Unknown N/A 07/09/2018 Medications There is no data. Problems Date Dx Coded Attending Type Code Diagnosis Diagnosed By CHEIKH MALHOTRA, ESTEPHANIA Watkins Ot M54.5 LOW BACK PAIN CHEIKH MALHOTRA, ESTEPHANIA Watkins Ot W19.XX XD UNSPECIFIED FALL, SUBSEQUENT ENCOUNTER CHEIKH MALHOTRA, ESTEPHANIA Watkins Ot Z98.1 ARTHRODESIS STATUS 05/22/2008 840.9 SPRA IN/STRAIN SHOULDER/ARM 05/22/2008 840.9 SPRA IN/STRAIN SHOULDER/ARM 05/22/2008 NAHEED MALHOTRA, ADÁN 840.9 SPRAIN/STRAIN SHOULDER/ARM 05/22/2008 840.9 SPRA IN/STRAIN SHOULDER/ARM 05/22/2008 840.9 SPRA IN/STRAIN SHOULDER/ARM 05/22/2008 840.9 SPRA IN/STRAIN SHOULDER/ARM 05/22/2008 840.9 SPRA IN/STRAIN SHOULDER/ARM 05/22/2008 840.9 SPRA IN/STRAIN SHOULDER/ARM 05/22/2008 840.9 SPRA IN/STRAIN SHOULDER/ARM 05/22/2008 LIVE DIAZ APRN 84 0.9 SPRAIN/STRAIN SHOULDER/ARM 05/22/2008 JOE RODRIGUEZ LIVE T 84 0.9 SPRAIN/STRAIN SHOULDER/ARM 05/22/2008 MARIAH MALHOTRA, MILO Ponce 840.9 SPRAIN/STRAIN SHOULDER/ARM 05/22/2008 LIVE DIAZ APRN T 84 0.9 SPRAIN/STRAIN SHOULDER/ARM 05/22/2008 JOE RODRIGUEZ LIVE T 84 0.9 SPRAIN/STRAIN SHOULDER/ARM 05/22/2008 LIVE DIAZ APRN T 84 0.9 SPRAIN/STRAIN SHOULDER/ARM 05/22/2008 KENNY DO, PHILLY K 840.9 SPRAIN/STRAIN SHOULDER/ARM 05/22/2008 JOE RODRIGUEZ LIVE T 84 0.9 SPRAIN/STRAIN SHOULDER/ARM 05/22/2008 LIVE DIAZ APRN T 84 0.9 SPRAIN/STRAIN SHOULDER/ARM 05/22/2008 JOE RODRIGUEZ LIVE T 84 0.9 SPRAIN/STRAIN SHOULDER/ARM 05/22/2008 LIVE DIAZ APRN T 84 0.9 SPRAIN/STRAIN SHOULDER/ARM 05/22/2008 LIVE DIAZ APRN T 84 0.9 SPRAIN/STRAIN SHOULDER/ARM 05/22/2008 JOE RODRIGUEZ LIVE T 84 0.9 SPRAIN/STRAIN SHOULDER/ARM 05/22/2008 KENNY DO, PHILLY K 840.9 SPRAIN/STRAIN SHOULDER/ARM 05/22/2008 JOE RODRIGUEZ LIVE T 84 0.9 SPRAIN/STRAIN SHOULDER/ARM 05/22/2008 ROBLES RODRIGUEZ TAE A 84 0.9 SPRAIN/STRAIN SHOULDER/ARM 05/22/2008 KENNY DO, PHILLY K 840.9 SPRAIN/STRAIN SHOULDER/ARM 05/22/2008 KENNY DO, PHILLY K 840.9 SPRAIN/STRAIN SHOULDER/ARM 05/22/2008 REZA ELISE, CHIO D 84 0.9 SPRAIN/STRAIN SHOULDER/ARM 05/22/2008 CHIO COBB DDS D 84 0.9 SPRAIN/STRAIN SHOULDER/ARM 05/22/2008 KELLEY COBB DDS 84 0.9 SPRAIN/STRAIN SHOULDER/ARM 05/22/2008 LIVE DIAZ APRN T 84 0.9 SPRAIN/STRAIN SHOULDER/ARM 06/15/2008 465.9 UPPE R RESPIRATORY INFECTION 06/15/2008 465.9 UPPE R RESPIRATORY INFECTION 06/15/2008 NAHEED MALHOTRA, ADÁN 465.9 UPPER RESPIRATORY INFECTION 06/15/2008 465.9 UPPE R RESPIRATORY INFECTION 06/15/2008 465.9 UPPE R RESPIRATORY INFECTION 06/15/2008 465.9 UPPE R RESPIRATORY INFECTION 06/15/2008 465.9 UPPE R RESPIRATORY INFECTION 06/15/2008 465.9 UPPE R RESPIRATORY INFECTION 06/15/2008 465.9 UPPE R RESPIRATORY INFECTION 06/15/2008 JOE RODRIGUEZ LIVE T 46 5.9 UPPER RESPIRATORY INFECTION 06/15/2008 JOE RODRIGUEZ LIVE T 46 5.9 UPPER RESPIRATORY INFECTION 06/15/2008 MILO LEMUS MD 465.9 UPPER RESPIRATORY INFECTION 06/15/2008 JOE RODRIGUEZ LIVE T 46 5.9 UPPER RESPIRATORY INFECTION 06/15/2008 LIVE DIAZ APRN T 46 5.9 UPPER RESPIRATORY INFECTION 06/15/2008 JOE RODRIGUEZ LIVE T 46 5.9 UPPER RESPIRATORY INFECTION 06/15/2008 KENNY DO, PHILLY K 465.9 UPPER RESPIRATORY INFECTION 06/15/2008 JOE RODRIGUEZ LIVE T 46 5.9 UPPER RESPIRATORY INFECTION 06/15/2008 JOE RODRIGUEZ LIVE T 46 5.9 UPPER RESPIRATORY INFECTION 06/15/2008 JOE RODRIGUEZ LIVE T 46 5.9 UPPER RESPIRATORY INFECTION 06/15/2008 JOE RODRIGUEZ LIVE T 46 5.9 UPPER RESPIRATORY INFECTION 06/15/2008 JOE RODRIGUEZ LIVE T 46 5.9 UPPER RESPIRATORY INFECTION 06/15/2008 JOE RODRIGUEZ LIVE T 46 5.9 UPPER RESPIRATORY INFECTION 06/15/2008 KENNY DO, PHILLY K 465.9 UPPER RESPIRATORY INFECTION 06/15/2008 JOE RODRIGUEZ LIVE T 46 5.9 UPPER RESPIRATORY INFECTION 06/15/2008 ROBLESROSALINDA RODRIGUEZ TAE A 46 5.9 UPPER RESPIRATORY INFECTION 06/15/2008 KENNY DO, PHILLY K 465.9 UPPER RESPIRATORY INFECTION 06/15/2008 KENNY DO, PHILLY K 465.9 UPPER RESPIRATORY INFECTION 06/15/2008 CHIO COBB DDS D 46 5.9 UPPER RESPIRATORY INFECTION 06/15/2008 CHIO COBB DDS D 46 5.9 UPPER RESPIRATORY INFECTION 06/15/2008 KELLEY COBB DDS 46 5.9 UPPER RESPIRATORY INFECTION 06/15/2008 LIVE DIAZ APRN T 46 5.9 UPPER RESPIRATORY INFECTION 06/26/2008 726.90 ENT HESOPATHY OF UNSPECIFIED SITE 06/26/2008 726.90 ENT HESOPATHY OF UNSPECIFIED SITE 06/26/2008 ADÁN FARFAN MD 726.9 0 ENTHESOPATHY OF UNSPECIFIED SITE 06/26/2008 726.90 ENT HESOPATHY OF UNSPECIFIED SITE 06/26/2008 726.90 ENT HESOPATHY OF UNSPECIFIED SITE 06/26/2008 726.90 ENT HESOPATHY OF UNSPECIFIED SITE 06/26/2008 726.90 ENT HESOPATHY OF UNSPECIFIED SITE 06/26/2008 726.90 ENT HESOPATHY OF UNSPECIFIED SITE 06/26/2008 726.90 ENT HESOPATHY OF UNSPECIFIED SITE 06/26/2008 LIVE DIAZ APRN [...] 726.90 ENTHESOPATHY OF UNSPECIFIED SITE 06/26/2008 KENNY DO, PHILLY K 726.90 ENTHESOPATHY OF UNSPECIFIED SITE 06/26/2008 KENNY DO, PHILLY K 726.90 ENTHESOPATHY OF UNSPECIFIED SITE 06/26/2008 WHITE DDS, CHIO Claudio 726.90 ENTHESOPATHY OF UNSPECIFIED SITE 06/26/2008 WHITE DDS, CHIO Claudio 726.90 ENTHESOPATHY OF UNSPECIFIED SITE 06/26/2008 WHITE DDS, KELLEY Watkins 726.90 ENTHESOPATHY OF UNSPECIFIED SITE 06/26/2008 LIVE DIAZ APRN 726.90 ENTHESOPATHY OF UNSPECIFIED SITE 07/01/2008 701.9 UNSP ECIFIED HYPERTROPHIC AND ATROPHIC CONDITIONS OF SKIN 07/01/2008 701.9 UNSP ECIFIED HYPERTROPHIC AND ATROPHIC CONDITIONS OF SKIN 07/01/2008 ADÁN FARFAN MD 701.9 UNSPECIFIED HYPERTROPHIC AND ATROPHIC CONDITIONS OF SKIN 07/01/2008 701.9 UNSP ECIFIED HYPERTROPHIC AND ATROPHIC CONDITIONS OF SKIN 07/01/2008 701.9 UNSP ECIFIED HYPERTROPHIC AND ATROPHIC CONDITIONS OF SKIN 07/01/2008 701.9 UNSP ECIFIED HYPERTROPHIC AND ATROPHIC CONDITIONS OF SKIN 07/01/2008 701.9 UNSP ECIFIED HYPERTROPHIC AND ATROPHIC CONDITIONS OF SKIN 07/01/2008 701.9 UNSP ECIFIED HYPERTROPHIC AND ATROPHIC CONDITIONS OF SKIN 07/01/2008 701.9 UNSP ECIFIED HYPERTROPHIC AND ATROPHIC CONDITIONS OF SKIN 07/01/2008 LIVE DIAZ APRN T 70 1.9 UNSPECIFIED HYPERTROPHIC AND ATROPHIC CONDITIONS OF SKIN 07/01/2008 LIVE DIAZ APRN T 70 1.9 UNSPECIFIED HYPERTROPHIC AND ATROPHIC CONDITIONS OF SKIN 07/01/2008 MILO LEMUS MD 701.9 UNSPECIFIED HYPERTROPHIC AND ATROPHIC CONDITIONS OF SK IN 07/01/2008 LIVE DIAZ APRN 70 1.9 UNSPECIFIED HYPERTROPHIC AND ATROPHIC CONDITIONS OF SKIN 07/01/2008 LIVE DIAZ APRN 70 1.9 UNSPECIFIED HYPERTROPHIC AND ATROPHIC CONDITIONS OF SKIN 07/01/2008 LIVE DIAZ APRN T 70 1.9 UNSPECIFIED HYPERTROPHIC AND ATROPHIC CONDITIONS OF SKIN 07/01/2008 PHILLY KENNY DO 701.9 UNSPECIFIED HYPERTROPHIC AND ATROPHIC CONDITIONS OF SKIN 07/01/2008 LIVE DIAZ APRN 70 1.9 UNSPECIFIED HYPERTROPHIC AND ATROPHIC CONDITIONS OF SKIN 07/01/2008 JOE FIRE 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, LIVE T 70 1.9 UNSPECIFIED HYPERTROPHIC AND ATROPHIC CONDITIONS OF SKIN 07/01/2008 LIVE DIAZ APRN T 70 1.9 UNSPECIFIED HYPERTROPHIC AND ATROPHIC CONDITIONS OF SKIN 07/01/2008 LVIE DIAZ APRN T 70 1.9 UNSPECIFIED HYPERTROPHIC AND ATROPHIC CONDITIONS OF SKIN 07/01/2008 LIVE DIAZ APRN T 70 1.9 UNSPECIFIED HYPERTROPHIC AND ATROPHIC CONDITIONS OF SKIN 07/01/2008 LIVE DIAZ APRN T 70 1.9 UNSPECIFIED HYPERTROPHIC AND ATROPHIC CONDITIONS OF SKIN 07/01/2008 MARK KENNY DOA K 701.9 UNSPECIFIED HYPERTROPHIC AND ATROPHIC CONDITIONS OF SKIN 07/01/2008 LIVE DIAZ APRN T 70 1.9 UNSPECIFIED HYPERTROPHIC AND ATROPHIC CONDITIONS OF SKIN 07/01/2008 TAE ARBOLEDA APRN 70 1.9 UNSPECIFIED HYPERTROPHIC AND ATROPHIC CONDITIONS OF SKIN 07/01/2008 KENNY DO PHILLY K 701.9 UNSPECIFIED HYPERTROPHIC AND ATROPHIC CONDITIONS OF SKIN 07/01/2008 KENNY DO PHILLY K 701.9 UNSPECIFIED HYPERTROPHIC AND ATROPHIC CONDITIONS OF SKIN 07/01/2008 WHITE DDS, CHIO D 70 1.9 UNSPECIFIED HYPERTROPHIC AND ATROPHIC CONDITIONS OF SKIN 07/01/2008 WHITE DDS, CHIO D 70 1.9 UNSPECIFIED HYPERTROPHIC AND ATROPHIC CONDITIONS OF SKIN 07/01/2008 WHITE DDS, KELLEY J 70 1.9 UNSPECIFIED HYPERTROPHIC AND ATROPHIC CONDITIONS OF SKIN 07/01/2008 LIVE DIAZ APRN T 70 1.9 UNSPECIFIED HYPERTROPHIC AND ATROPHIC CONDITIONS OF SKIN 07/15/2008 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 07/15/2008 V72.31 MEN'S GOLF COACH EXAM, ROUTINE 07/15/2008 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 07/15/2008 V72.31 MEN'S GOLF COACH EXAM, ROUTINE 07/15/2008 ADÁN FARFAN MD 338.4 CHRONIC PAIN SYNDROME 07/15/2008 ADÁN FARFAN MD V72.3 1 MEN'S GOLF COACH EXAM, ROUTINE 07/15/2008 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 07/15/2008 V72.31 MEN'S GOLF COACH EXAM, ROUTINE 07/15/2008 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 07/15/2008 V72.31 MEN'S GOLF COACH EXAM, ROUTINE 07/15/2008 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 07/15/2008 V72.31 MEN'S GOLF COACH EXAM, ROUTINE 07/15/2008 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 07/15/2008 V72.31 MEN'S GOLF COACH EXAM, ROUTINE 07/15/2008 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 07/15/2008 V72.31 MEN'S GOLF COACH EXAM, ROUTINE 07/15/2008 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4 CHRONIC PAIN SYNDROME 07/15/2008 LIVE DIAZ APRN T V72.31 MEN'S GOLF COACH EXAM, ROUTINE 07/15/2008 LIVE DIAZ APRN T 33 8.4 CHRONIC PAIN SYNDROME 07/15/2008 JOE RODRIGUEZ LIVE T V72.31 MEN'S GOLF COACH EXAM, ROUTINE 07/15/2008 KENNY DOPHILLY K 338.4 CHRONIC PAIN SYNDROME 07/15/2008 KENNY DO PHILLY K V72.31 MEN'S GOLF COACH EXAM, ROUTINE 07/15/2008 LIVE DIAZ APRN T 33 8.4 CHRONIC PAIN SYNDROME 07/15/2008 LIVE DIAZ APRN T V72.31 MEN'S GOLF COACH EXAM, ROUTINE 07/15/2008 LIVE DIAZ APRN T 33 8.4 CHRONIC PAIN SYNDROME 07/15/2008 LIVE DIAZ APRN T V72.31 MEN'S GOLF COACH EXAM, ROUTINE 07/15/2008 LIVE DIAZ APRN T 33 8.4 CHRONIC PAIN SYNDROME 07/15/2008 LIVE DIAZ APRN T V72.31 MEN'S GOLF COACH EXAM, ROUTINE 07/15/2008 LIVE DIAZ APRN T 33 8.4 CHRONIC PAIN SYNDROME 07/15/2008 LIVE DIAZ APRN T V72.31 MEN'S GOLF COACH EXAM, ROUTINE 07/15/2008 LIVE DIAZ APRN T 33 8.4 CHRONIC PAIN SYNDROME 07/15/2008 LIVE DIAZ APRN T V72.31 MEN'S GOLF COACH EXAM, ROUTINE 07/15/2008 LIVE DIAZ APRN 33 8.4 CHRONIC PAIN SYNDROME 07/15/2008 LIVE DIAZ APRN V72.31 MEN'S GOLF COACH EXAM, ROUTINE 07/15/2008 KENNY DO PHILLY K 338.4 CHRONIC PAIN SYNDROME 07/15/2008 KENNY DO, PHILLY K V72.31 MEN'S GOLF COACH EXAM, ROUTINE 07/15/2008 LIVE DIAZ APRN 33 8.4 CHRONIC PAIN SYNDROME 07/15/2008 LIVE DIAZ APRN V72.31 MEN'S GOLF COACH EXAM, ROUTINE 07/15/2008 CAROLE ARBOLEDA APRNIDI A 33 8.4 CHRONIC PAIN SYNDROME 07/15/2008 ROBLESAlfonzo RODRIGUEZ TAE A V72.31 MEN'S GOLF COACH EXAM, ROUTINE 07/15/2008 KENNY DO, PHILLY K 338.4 CHRONIC PAIN SYNDROME 07/15/2008 KENNY DO, PHILLY K V72.31 MEN'S GOLF COACH EXAM, ROUTINE 07/15/2008 KENNY DO, PHILLY K 338.4 CHRONIC PAIN SYNDROME 07/15/2008 KENNY DO, PHILLY K V72.31 MEN'S GOLF COACH EXAM, ROUTINE 07/15/2008 WHITE DDS, CHIO D 33 8.4 CHRONIC PAIN SYNDROME 07/15/2008 WHITE DDS, CHIO D V72.31 MEN'S GOLF COACH EXAM, ROUTINE 07/15/2008 WHITE DDS, CHIO D 33 8.4 CHRONIC PAIN SYNDROME 07/15/2008 WHITE DDS, CHIO D V72.31 MEN'S GOLF COACH EXAM, ROUTINE 07/15/2008 WHITE DDS, KELLEY J 33 8.4 CHRONIC PAIN SYNDROME 07/15/2008 WHITE DDS, KELLEY J V72.31 MEN'S GOLF COACH EXAM, ROUTINE 07/15/2008 LIVE DIAZ APRN 33 8.4 CHRONIC PAIN SYNDROME 07/15/2008 LIVE DIAZ APRN V72.31 MEN'S GOLF COACH EXAM, ROUTINE 08/05/2008 V70.0 GENE RAL MEDICAL EXAM, ROUTINE, AT HEALTH CARE FACILITY 08/05/2008 V70.0 GENE RAL MEDICAL EXAM, ROUTINE, AT HEALTH CARE FACILITY 08/05/2008 ADÁN FARFAN MD V70.0 GENERAL MEDICAL EXAM, ROUTINE, AT HEALTH CARE FACILITY 08/05/2008 V70.0 GENE RAL MEDICAL EXAM, ROUTINE, AT HEALTH CARE FACILITY 08/05/2008 V70.0 GENE RAL MEDICAL EXAM, ROUTINE, AT HEALTH CARE FACILITY 08/05/2008 V70.0 GENE RAL MEDICAL EXAM, ROUTINE, AT HEALTH CARE FACILITY 08/05/2008 V70.0 GENE RAL MEDICAL EXAM, ROUTINE, AT HEALTH CARE FACILITY 08/05/2008 V70.0 GENE RAL MEDICAL EXAM, ROUTINE, AT HEALTH CARE FACILITY 08/05/2008 V70.0 GENE RAL MEDICAL EXAM, ROUTINE, AT HEALTH CARE FACILITY 08/05/2008 LIVE DIAZ APRN T V7 0.0 GENERAL MEDICAL EXAM, ROUTINE, AT HEALTH CARE FACILITY 08/05/2008 LIVE DIAZ APRN T V7 0.0 GENERAL MEDICAL EXAM, ROUTINE, AT HEALTH CARE FACILITY 08/05/2008 MILO LEMUS MD V70.0 GENERAL MEDICAL EXAM, ROUTINE, AT HEALTH CARE FACILITY 08/05/2008 LIVE DIAZ APRN T V7 0.0 GENERAL MEDICAL EXAM, ROUTINE, AT HEALTH CARE FACILITY 08/05/2008 LIVE DIAZ APRN T V7 0.0 GENERAL MEDICAL EXAM, ROUTINE, AT HEALTH CARE FACILITY 08/05/2008 LIVE DIZA APRN T V7 0.0 GENERAL MEDICAL EXAM, ROUTINE, AT HEALTH CARE FACILITY 08/05/2008 PHILLY KENNY DO V70.0 GENERAL MEDICAL EXAM, ROUTINE, AT HEALTH CARE FACILITY 08/05/2008 LIVE DIAZ APRN T V7 0.0 GENERAL MEDICAL EXAM, ROUTINE, AT HEALTH CARE FACILITY 08/05/2008 LIVE DIZA APRN T V7 0.0 GENERAL MEDICAL EXAM, ROUTINE, AT HEALTH CARE FACILITY 08/05/2008 LIVE DIAZ APRN T V7 0.0 GENERAL MEDICAL EXAM, ROUTINE, AT HEALTH CARE FACILITY 08/05/2008 LIVE DIAZ APRN T V7 0.0 GENERAL MEDICAL EXAM, ROUTINE, AT HEALTH CARE FACILITY 08/05/2008 LIVE DIAZ APRN T V7 0.0 GENERAL MEDICAL EXAM, ROUTINE, AT HEALTH CARE FACILITY 08/05/2008 LIVE DIAZ APRN T V7 0.0 GENERAL MEDICAL EXAM, ROUTINE, AT HEALTH CARE FACILITY 08/05/2008 PHILLY KENNY DO V70.0 GENERAL MEDICAL EXAM, ROUTINE, AT HEALTH CARE FACILITY 08/05/2008 LIVE DIAZ APRN T V7 0.0 GENERAL MEDICAL EXAM, ROUTINE, AT HEALTH CARE FACILITY 08/05/2008 TAE ARBOLEDA APRN V7 0.0 GENERAL MEDICAL EXAM, ROUTINE, AT HEALTH CARE FACILITY 08/05/2008 PHILLY KENNY DO V70.0 GENERAL MEDICAL EXAM, ROUTINE, AT HEALTH CARE FACILITY 08/05/2008 KENNY DO, PHILLY K V70.0 GENERAL MEDICAL EXAM, ROUTINE, AT HEALTH CARE FACILITY 08/05/2008 WHITE DDS, CHIO D V7 0.0 GENERAL MEDICAL EXAM, ROUTINE, AT HEALTH CARE FACILITY 08/05/2008 WHITE DDS, CHIO D V7 0.0 GENERAL MEDICAL EXAM, ROUTINE, AT HEALTH CARE FACILITY 08/05/2008 WHITE DDS, KELLEY J V7 0.0 GENERAL MEDICAL EXAM, ROUTINE, AT HEALTH CARE FACILITY 08/05/2008 LIVE DIAZ APRN V7 0.0 GENERAL MEDICAL EXAM, ROUTINE, AT HEALTH CARE FACILITY 11/02/2008 709.1 VASC ULAR DISORDERS OF SKIN 11/02/2008 709.1 VASC ULAR DISORDERS OF SKIN 11/02/2008 ADÁN FARFAN MD 709.1 VASCULAR DISORDERS OF SKIN 11/02/2008 709.1 VASC ULAR DISORDERS OF SKIN 11/02/2008 709.1 VASC ULAR DISORDERS OF SKIN 11/02/2008 709.1 VASC ULAR DISORDERS OF SKIN 11/02/2008 709.1 VASC ULAR DISORDERS OF SKIN 11/02/2008 709.1 VASC ULAR DISORDERS OF SKIN 11/02/2008 709.1 VASC ULAR DISORDERS OF SKIN 11/02/2008 LIVE DIAZ APRN T 70 9.1 VASCULAR DISORDERS OF SKIN 11/02/2008 LIVE DIAZ APRN T 70 9.1 VASCULAR DISORDERS OF SKIN 11/02/2008 MILO LEMUS MD 709.1 VASCULAR DISORDERS OF SKIN 11/02/2008 LIVE DIAZ APRN T 70 9.1 VASCULAR DISORDERS OF SKIN 11/02/2008 LIVE DIAZ APRN T 70 9.1 VASCULAR DISORDERS OF SKIN 11/02/2008 LIVE DIAZ APRN T 70 9.1 VASCULAR DISORDERS OF SKIN 11/02/2008 EFRAÍN DO PHILLY K 709.1 VASCULAR DISORDERS OF SKIN 11/02/2008 LIVE DIAZ APRN T 70 9.1 VASCULAR DISORDERS OF SKIN 11/02/2008 LIVE DIAZ APRN T 70 9.1 VASCULAR DISORDERS OF SKIN 11/02/2008 LIVE DIAZ APRN T 70 9.1 VASCULAR DISORDERS OF SKIN 11/02/2008 LIVE DIAZ APRN T 70 9.1 VASCULAR DISORDERS OF SKIN 11/02/2008 LIVE DIAZ APRN T 70 9.1 VASCULAR DISORDERS OF SKIN 11/02/2008 LIVE DIAZ APRN 70 9.1 VASCULAR DISORDERS OF SKIN 11/02/2008 KENNY DO, PHILLY K 709.1 VASCULAR DISORDERS OF SKIN 11/02/2008 LIVE DIAZ APRN 70 9.1 VASCULAR DISORDERS OF SKIN 11/02/2008 TAE ARBOLEDA APRN 70 9.1 VASCULAR DISORDERS OF SKIN 11/02/2008 KENNY DO, PHILLY K 709.1 VASCULAR DISORDERS OF SKIN 11/02/2008 KENNY DO, PHILLY K 709.1 VASCULAR DISORDERS OF SKIN 11/02/2008 WHITE DDS, CHIO D 70 9.1 VASCULAR DISORDERS OF SKIN 11/02/2008 WHITE DDS, CHIO D 70 9.1 VASCULAR DISORDERS OF SKIN 11/02/2008 WHITE DDS, KELLEY J 70 9.1 VASCULAR DISORDERS OF SKIN 11/02/2008 LIVE DIAZ APRN 70 9.1 VASCULAR DISORDERS OF SKIN 04/14/2009 V70.5 PREEMPLOYMENT/PRESCHOOL EXAM 04/14/2009 V70.5 PREEMPLOYMENT/PRESCHOOL EXAM 04/14/2009 NAHEED MALHOTRA, ADÁN V70.5 PREEMPLOYMENT/PRESCHOOL EXAM 04/14/2009 V70.5 PREEMPLOYMENT/PRESCHOOL EXAM 04/14/2009 V70.5 PREEMPLOYMENT/PRESCHOOL EXAM 04/14/2009 V70.5 PREEMPLOYMENT/PRESCHOOL EXAM 04/14/2009 V70.5 PREEMPLOYMENT/PRESCHOOL EXAM 04/14/2009 V70.5 PREEMPLOYMENT/PRESCHOOL EXAM 04/14/2009 V70.5 PREEMPLOYMENT/PRESCHOOL EXAM 04/14/2009 LIVE DIAZ APRN V7 0.5 PREEMPLOYMENT/PRESCHOOL EXAM 04/14/2009 LIVE DIAZ APRN V7 0.5 PREEMPLOYMENT/PRESCHOOL EXAM 04/14/2009 MARIAH MALHOTRA, MILO Ponce V70.5 PREEMPLOYMENT/PRESCHOOL EXAM 04/14/2009 LIVE DIAZ APRN V7 0.5 PREEMPLOYMENT/PRESCHOOL EXAM 04/14/2009 LIVE DIAZ APRN V7 0.5 PREEMPLOYMENT/PRESCHOOL EXAM 04/14/2009 LIVE DIAZ APRN V7 0.5 PREEMPLOYMENT/PRESCHOOL EXAM 04/14/2009 KENNY DO, PHILLY K V70.5 PREEMPLOYMENT/PRESCHOOL EXAM 04/14/2009 LIVE DIAZ APRN T V7 0.5 PREEMPLOYMENT/PRESCHOOL EXAM 04/14/2009 LIVE DIAZ APRN T V7 0.5 PREEMPLOYMENT/PRESCHOOL EXAM 04/14/2009 LIVE DIAZ APRN T V7 0.5 PREEMPLOYMENT/PRESCHOOL EXAM 04/14/2009 LIVE DIAZ APRN T V7 0.5 PREEMPLOYMENT/PRESCHOOL EXAM 04/14/2009 LIVE DIAZ APRN T V7 0.5 PREEMPLOYMENT/PRESCHOOL EXAM 04/14/2009 LIVE DIAZ APRN T V7 0.5 PREEMPLOYMENT/PRESCHOOL EXAM 04/14/2009 KENNY DO, PHILLY K V70.5 PREEMPLOYMENT/PRESCHOOL EXAM 04/14/2009 LIVE DIAZ APRN T V7 0.5 PREEMPLOYMENT/PRESCHOOL EXAM 04/14/2009 TAE ARBOLEDA APRN A V7 0.5 PREEMPLOYMENT/PRESCHOOL EXAM 04/14/2009 KENNY DO, PHILLY K V70.5 PREEMPLOYMENT/PRESCHOOL EXAM 04/14/2009 KENNY DO, PHILLY K V70.5 PREEMPLOYMENT/PRESCHOOL EXAM 04/14/2009 WHITE DDS, CHIO D V7 0.5 PREEMPLOYMENT/PRESCHOOL EXAM 04/14/2009 WHITE DDS, CHIO D V7 0.5 PREEMPLOYMENT/PRESCHOOL EXAM 04/14/2009 WHITE DDS, KELLEY J V7 0.5 PREEMPLOYMENT/PRESCHOOL EXAM 04/14/2009 LIVE DIAZ APRN T V7 0.5 PREEMPLOYMENT/PRESCHOOL EXAM 04/28/2009 133.0 SCABIES 04/28/2009 133.0 SCABIES 04/28/2009 ADÁN FARFAN MD 133.0 SCABIES 04/28/2009 133.0 SCABIES 04/28/2009 133.0 SCABIES 04/28/2009 133.0 SCABIES 04/28/2009 133.0 SCABIES 04/28/2009 133.0 SCABIES 04/28/2009 133.0 SCABIES 04/28/2009 LIVE DIAZ APRN T 13 3.0 SCABIES 04/28/2009 LIVE DIAZ APRN 13 3.0 SCABIES 04/28/2009 MILO LEMUS MD 133.0 SCABIES 04/28/2009 JOE FIRE 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, LIVE T 13 3.0 SCABIES 04/28/2009 JOE FIRE 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, LIVE T 13 3.0 SCABIES 04/28/2009 JOE FIRE 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, LIVE T 13 3.0 SCABIES 04/28/2009 KENNY DO, PHILLY K 133.0 SCABIES 04/28/2009 JOE FIRE 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, LIVE T 13 3.0 SCABIES 04/28/2009 JOE FIRE 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, LIVE T 13 3.0 SCABIES 04/28/2009 JOE FIRE 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, LIVE T 13 3.0 SCABIES 04/28/2009 JOE FIRE 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, LIVE T 13 3.0 SCABIES 04/28/2009 JOE FIRE 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, LIVE T 13 3.0 SCABIES 04/28/2009 JOE FIRE 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, LIVE T 13 3.0 SCABIES 04/28/2009 KENNY DO, PHILLY K 133.0 SCABIES 04/28/2009 JOE RODRIGUEZ, LIVE T 13 3.0 SCABIES 04/28/2009 ROBLES FIRE 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, TAE A 13 3.0 SCABIES 04/28/2009 KENNY DO, PHILLY K 133.0 SCABIES 04/28/2009 KENNY DO, PHILLY K 133.0 SCABIES 04/28/2009 WHITE DDS, CHIO D 13 3.0 SCABIES 04/28/2009 WHITE DDS, CHIO D 13 3.0 SCABIES 04/28/2009 WHITE DDS, KELLEY J 13 3.0 SCABIES 04/28/2009 JOE RODRIGUEZ LIVE T 13 3.0 SCABIES 07/22/2009 786.2 cough 07/22/2009 786.2 cough 07/22/2009 ADÁN FARFAN MD 786.2 cough 07/22/2009 786.2 cough 07/22/2009 786.2 COUGH 07/22/2009 786.2 COUGH 07/22/2009 786.2 COUGH 07/22/2009 786.2 COUGH 07/22/2009 786.2 COUGH 07/22/2009 LIVE DIAZ APRN T 78 6.2 COUGH 07/22/2009 LIVE DIAZ APRN T 78 6.2 COUGH 07/22/2009 MILO LEMUS MD 786.2 COUGH 07/22/2009 JOE RODRIGUEZ, LIVE T 78 6.2 COUGH 07/22/2009 JOE BETANCURN, LIVE T 78 6.2 COUGH 07/22/2009 JOE BETANCURN, LIVE T 78 6.2 COUGH 07/22/2009 KENNY DO, PHILLY K 786.2 COUGH 07/22/2009 JOE BETANCURN, LIVE T 78 6.2 COUGH 07/22/2009 JOE BETANCURN, LIVE T 78 6.2 COUGH 07/22/2009 JOE FIRE 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, LIVE T 78 6.2 COUGH 07/22/2009 JOE BETANCURN, LIVE T 78 6.2 COUGH 07/22/2009 JOE BETANCURN, LIVE T 78 6.2 COUGH 07/22/2009 JOE FIRE 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, LIVE T 78 6.2 COUGH 07/22/2009 KENNY DO, PHILLY K 786.2 COUGH 07/22/2009 JOE FIRE 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, LIVE T 78 6.2 COUGH 07/22/2009 ROBLES JENNIFER, TAE A 78 6.2 COUGH 07/22/2009 KENNY DO, PHILLY K 786.2 COUGH 07/22/2009 KENNY DO, PHILLY K 786.2 COUGH 07/22/2009 WHITE DDS, CHIO D 78 6.2 COUGH 07/22/2009 WHITE DDS, CHIO D 78 6.2 COUGH 07/22/2009 WHITE DDS, KELLEY J 78 6.2 COUGH 07/22/2009 JOE FIRE 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LIVE Mejía T 78 6.2 cough 12/07/2009 V74.1 SCRE ENING EXAMINATION FOR PULMONARY TUBERCULOSIS 12/07/2009 V74.1 SCRE ENING EXAMINATION FOR PULMONARY TUBERCULOSIS 12/07/2009 NAHEED MALHOTRA, ADÁN V74.1 SCREENING EXAMINATION FOR PULMONARY TUBERCULOSIS 12/07/2009 V74.1 SCRE ENING EXAMINATION FOR PULMONARY TUBERCULOSIS 12/07/2009 V74.1 SCRE ENING EXAMINATION FOR PULMONARY TUBERCULOSIS 12/07/2009 V74.1 SCRE ENING EXAMINATION FOR PULMONARY TUBERCULOSIS 12/07/2009 V74.1 SCRE ENING EXAMINATION FOR PULMONARY TUBERCULOSIS 12/07/2009 V74.1 SCRE ENING EXAMINATION FOR PULMONARY TUBERCULOSIS 12/07/2009 V74.1 SCRE ENING EXAMINATION FOR PULMONARY TUBERCULOSIS 12/07/2009 LIVE DIAZ APRN V7 4.1 SCREENING EXAMINATION FOR PULMONARY TUBERCULOSIS 12/07/2009 LIVE DIAZ APRN V7 4.1 SCREENING EXAMINATION FOR PULMONARY TUBERCULOSIS 12/07/2009 MARIAH MALHOTRA, MILO Ponce V74.1 SCREENING EXAMINATION FOR PULMONARY TUBERCULOSIS 12/07/2009 JOE RODRIGUEZ LIVE T V7 4.1 SCREENING EXAMINATION FOR PULMONARY TUBERCULOSIS 12/07/2009 JOE RODRIGUEZ LIVE T V7 4.1 SCREENING EXAMINATION FOR PULMONARY TUBERCULOSIS 12/07/2009 JOE RODRIGUEZ LIVE T V7 4.1 SCREENING EXAMINATION FOR PULMONARY TUBERCULOSIS 12/07/2009 KENNY DO, PHILLY K V74.1 SCREENING EXAMINATION FOR PULMONARY TUBERCULOSIS 12/07/2009 JOE RODRIGUEZ LIVE T V7 4.1 SCREENING EXAMINATION FOR PULMONARY TUBERCULOSIS 12/07/2009 JOE RODRIGUEZ LIVE T V7 4.1 SCREENING EXAMINATION FOR PULMONARY TUBERCULOSIS 12/07/2009 JOE RODRIGUEZ LIVE T V7 4.1 SCREENING EXAMINATION FOR PULMONARY TUBERCULOSIS 12/07/2009 JOE RODRIGUEZ LIVE T V7 4.1 SCREENING EXAMINATION FOR PULMONARY TUBERCULOSIS 12/07/2009 JOE RODRIGUEZ LIVE T V7 4.1 SCREENING EXAMINATION FOR PULMONARY TUBERCULOSIS 12/07/2009 JOE RODRIGUEZ LIVE T V7 4.1 SCREENING EXAMINATION FOR PULMONARY TUBERCULOSIS 12/07/2009 KENNY DO, PHILLY K V74.1 SCREENING EXAMINATION FOR PULMONARY TUBERCULOSIS 12/07/2009 JOE RODRIGUEZ LIVE T V7 4.1 SCREENING EXAMINATION FOR PULMONARY TUBERCULOSIS 12/07/2009 ROBLES RODRIGUEZ TAE A V7 4.1 SCREENING EXAMINATION FOR PULMONARY TUBERCULOSIS 12/07/2009 KENNY DO, PHILLY K V74.1 SCREENING EXAMINATION FOR PULMONARY TUBERCULOSIS 12/07/2009 KENNY DO, PHILLY K V74.1 SCREENING EXAMINATION FOR PULMONARY TUBERCULOSIS 12/07/2009 REZA COOPERSCHIO V7 4.1 SCREENING EXAMINATION FOR PULMONARY TUBERCULOSIS 12/07/2009 WHITE ALLISONSCHIO V7 4.1 SCREENING EXAMINATION FOR PULMONARY TUBERCULOSIS 12/07/2009 REZA DDSKELLEY V7 4.1 SCREENING EXAMINATION FOR PULMONARY TUBERCULOSIS 12/07/2009 LIVE DIAZ APRN T V7 4.1 SCREENING EXAMINATION FOR PULMONARY TUBERCULOSIS 12/15/2009 564.00 CON STIPATION 12/15/2009 788.1 pain during urination (dysuria) 12/15/2009 564.00 CON STIPATION 12/15/2009 788.1 pain during urination (dysuria) 12/15/2009 ADÁN FARFAN MD 564.0 0 CONSTIPATION 12/15/2009 ADÁN FARFAN MD 788.1 pain during urination (dysuria) 12/15/2009 564.00 CON STIPATION 12/15/2009 788.1 pain during urination (dysuria) 12/15/2009 564.00 CON STIPATION 12/15/2009 788.1 PAIN DURING URINATION (DYSURIA) 12/15/2009 564.00 CON STIPATION 12/15/2009 788.1 PAIN DURING URINATION (DYSURIA) 12/15/2009 564.00 CON STIPATION 12/15/2009 788.1 PAIN DURING URINATION (DYSURIA) 12/15/2009 564.00 CON STIPATION 12/15/2009 788.1 PAIN DURING URINATION (DYSURIA) 12/15/2009 564.00 CON STIPATION 12/15/2009 788.1 PAIN DURING URINATION (DYSURIA) 12/15/2009 LIVE DIAZ APRN 564.00 CONSTIPATION 12/15/2009 LIVE DIAZ APRN 78 8.1 PAIN DURING URINATION (DYSURIA) 12/15/2009 LIVE DIAZ APRN 564.00 CONSTIPATION 12/15/2009 LIVE DIAZ APRN 78 8.1 PAIN DURING URINATION (DYSURIA) 12/15/2009 MILO LEMUS MD 564.00 CONSTIPATION 12/15/2009 MILO LEMUS MD 788.1 PAIN DURING URINATION (DYSURIA) 12/15/2009 LIVE DIAZ APRN T 564.00 CONSTIPATION 12/15/2009 LIVE DIAZ APRN 78 8.1 PAIN DURING URINATION (DYSURIA) 12/15/2009 LIVE DIAZ APRN 564.00 CONSTIPATION 12/15/2009 LIVE DIAZ APRN T 78 8.1 PAIN DURING URINATION (DYSURIA) 12/15/2009 LIVE DIAZ APRN T 564.00 CONSTIPATION 12/15/2009 LIVE DIAZ APRN T 78 8.1 PAIN DURING URINATION (DYSURIA) 12/15/2009 KENNY DO, PHILLY K 564.00 CONSTIPATION 12/15/2009 KENNY DO, PHILLY K 788.1 PAIN DURING URINATION (DYSURIA) 12/15/2009 LIVE DIAZ APRN T 564.00 CONSTIPATION 12/15/2009 LIVE DIAZ APRN 78 8.1 PAIN DURING URINATION (DYSURIA) 12/15/2009 LIVE DIAZ APRN T 564.00 CONSTIPATION 12/15/2009 LIVE DIAZ APRN T 78 8.1 PAIN DURING URINATION (DYSURIA) 12/15/2009 LIVE DIAZ APRN T 564.00 CONSTIPATION 12/15/2009 LIVE DIAZ APRN T 78 8.1 PAIN DURING URINATION (DYSURIA) 12/15/2009 LIVE DIAZ APRN T 564.00 CONSTIPATION 12/15/2009 LIVE DIAZ APRN T 78 8.1 PAIN DURING URINATION (DYSURIA) 12/15/2009 LIVE DIAZ APRN T 564.00 CONSTIPATION 12/15/2009 LIVE DIAZ APRN 78 8.1 PAIN DURING URINATION (DYSURIA) 12/15/2009 LIVE DIAZ APRN T 564.00 CONSTIPATION 12/15/2009 LIVE DIAZ APRN T 78 8.1 PAIN DURING URINATION (DYSURIA) 12/15/2009 EFRAÍN CREWS PHILLY K 564.00 CONSTIPATION 12/15/2009 EFRAÍN DO PHILLY K 788.1 PAIN DURING URINATION (DYSURIA) 12/15/2009 LIVE DIAZ APRN T 564.00 CONSTIPATION 12/15/2009 LIVE DIAZ APRN 78 8.1 PAIN DURING URINATION (DYSURIA) 12/15/2009 CAROLE ARBOLEDA APRNIDI A 564.00 CONSTIPATION 12/15/2009 TAE ARBOLEDA APRN A 78 8.1 PAIN DURING URINATION (DYSURIA) 12/15/2009 KENNY DO PHILLY K 564.00 CONSTIPATION 12/15/2009 KENNY DO, PHILLY K 788.1 PAIN DURING URINATION (DYSURIA) 12/15/2009 KENNY DO PHILLY K 564.00 CONSTIPATION 12/15/2009 KENNY DO, PHILLY K 788.1 PAIN DURING URINATION (DYSURIA) 12/15/2009 WHITE DDS, CHIO D 564.00 CONSTIPATION 12/15/2009 WHITE DDS, CHIO D 78 8.1 PAIN DURING URINATION (DYSURIA) 12/15/2009 WHITE DDS, CHIO D 564.00 CONSTIPATION 12/15/2009 WHITE DDS, CHIO D 78 8.1 PAIN DURING URINATION (DYSURIA) 12/15/2009 WHITE DDS, KELLEY J 564.00 CONSTIPATION 12/15/2009 WHITE DDSSPENCERON J 78 8.1 PAIN DURING URINATION (DYSURIA) 12/15/2009 LIVE DIAZ APRN T 564.00 CONSTIPATION 12/15/2009 LIVE DIAZ APRN 78 8.1 pain during urination (dysuria) 12/23/2009 461.9 SINU SITIS ACUTE 12/23/2009 461.9 SINU SITIS ACUTE 12/23/2009 NAHEED MALHOTRA, ADÁN 461.9 SINUSITIS ACUTE 12/23/2009 461.9 SINU SITIS ACUTE 12/23/2009 461.9 SINU SITIS ACUTE 12/23/2009 461.9 SINU SITIS ACUTE 12/23/2009 461.9 SINU SITIS ACUTE 12/23/2009 461.9 SINU SITIS ACUTE 12/23/2009 461.9 SINU SITIS ACUTE 12/23/2009 LIVE DIAZ APRN T 46 1.9 SINUSITIS ACUTE 12/23/2009 LIVE DIAZ APRN T 46 1.9 SINUSITIS ACUTE 12/23/2009 MARIAH MALHOTRA, MILO Ponce 461.9 SINUSITIS ACUTE 12/23/2009 LIVE DIAZ APRN T 46 1.9 SINUSITIS ACUTE 12/23/2009 LIVE DIAZ APRN T 46 1.9 SINUSITIS ACUTE 12/23/2009 LIVE DIAZ APRN T 46 1.9 SINUSITIS ACUTE 12/23/2009 MARK KENNY DOA K 461.9 SINUSITIS ACUTE 12/23/2009 LIVE DIAZ APRN T 46 1.9 SINUSITIS ACUTE 12/23/2009 LIVE DIAZ APRN T 46 1.9 SINUSITIS ACUTE 12/23/2009 LIVE DIAZ APRN T 46 1.9 SINUSITIS ACUTE 12/23/2009 LIVE DIAZ APRN T 46 1.9 SINUSITIS ACUTE 12/23/2009 LIVE DIAZ APRN T 46 1.9 SINUSITIS ACUTE 12/23/2009 LIVE DIAZ APRN T 46 1.9 SINUSITIS ACUTE 12/23/2009 KENNY DO PHILLY K 461.9 SINUSITIS ACUTE 12/23/2009 LIVE DIAZ APRN T 46 1.9 SINUSITIS ACUTE 12/23/2009 TAE ARBOLEDA APRN 46 1.9 SINUSITIS ACUTE 12/23/2009 KENNY DO, PHILLY K 461.9 SINUSITIS ACUTE 12/23/2009 KENNY DO, PHILLY K 461.9 SINUSITIS ACUTE 12/23/2009 WHITE DDS, CHIO D 46 1.9 SINUSITIS ACUTE 12/23/2009 WHITE DDS, CHIO D 46 1.9 SINUSITIS ACUTE 12/23/2009 WHITE DDS, KELLEY J 46 1.9 SINUSITIS ACUTE 12/23/2009 LIVE DIAZ APRN 46 1.9 SINUSITIS ACUTE 06/01/2010 466.0 BRON CHITIS, ACUTE 06/01/2010 724.2 PAIN LOW BACK 06/01/2010 786.07 WHE EZING 06/01/2010 466.0 BRON CHITIS, ACUTE 06/01/2010 724.2 PAIN LOW BACK 06/01/2010 786.07 WHE EZING 06/01/2010 ADÁN FARFAN MD 466.0 BRONCHITIS, ACUTE 06/01/2010 ADÁN FARFAN MD 724.2 PAIN LOW BACK 06/01/2010 ADÁN FARFAN MD 786.0 7 WHEEZING 06/01/2010 466.0 BRON CHITIS, ACUTE 06/01/2010 724.2 PAIN LOW BACK 06/01/2010 786.07 WHE EZING 06/01/2010 466.0 BRON CHITIS, ACUTE 06/01/2010 724.2 PAIN LOW BACK 06/01/2010 786.07 WHE EZING 06/01/2010 466.0 BRON CHITIS, ACUTE 06/01/2010 724.2 PAIN LOW BACK 06/01/2010 786.07 WHE EZING 06/01/2010 466.0 BRON CHITIS, ACUTE 06/01/2010 724.2 PAIN LOW BACK 06/01/2010 786.07 WHE EZING 06/01/2010 466.0 BRON CHITIS, ACUTE 06/01/2010 724.2 PAIN LOW BACK 06/01/2010 786.07 WHE EZING 06/01/2010 466.0 BRON CHITIS, ACUTE 06/01/2010 724.2 PAIN LOW BACK 06/01/2010 786.07 WHE EZING 06/01/2010 LIVE DIAZ APRN 46 6.0 BRONCHITIS, ACUTE 06/01/2010 LIVE DIAZ APRN 72 4.2 PAIN LOW BACK 06/01/2010 LIVE DIAZ APRN 786.07 WHEEZING 06/01/2010 LIVE DIAZ APRN 46 6.0 BRONCHITIS, ACUTE 06/01/2010 LIVE DIAZ APRN 72 4.2 PAIN LOW BACK 06/01/2010 JOE BETANCURN, LIVE T 786.07 WHEEZING 06/01/2010 MARIAH MALHOTRA, MILO M 466.0 BRONCHITIS, ACUTE 06/01/2010 MARIAH MALHOTRA, MILO M 724.2 PAIN LOW BACK 06/01/2010 MARIAH MALHOTRA, MILO M 786.07 WHEEZING 06/01/2010 JOE RODRIGUEZ LIVE T 46 6.0 BRONCHITIS, ACUTE 06/01/2010 JOE RODRIGUEZ LIVE T 72 4.2 PAIN LOW BACK 06/01/2010 JOE RODRIGUEZ, LIVE T 786.07 WHEEZING 06/01/2010 JOE BETANCURN LIVE T 46 6.0 BRONCHITIS, ACUTE 06/01/2010 JOE RODRIGUEZ, LIVE T 72 4.2 PAIN LOW BACK 06/01/2010 JOE RODRIGUEZ, LIVE T 786.07 WHEEZING 06/01/2010 JOE RODRIGUEZ LIVE T 46 6.0 BRONCHITIS, ACUTE 06/01/2010 JOE RODRIGUEZ LIVE T 72 4.2 PAIN LOW BACK 06/01/2010 LIVE DIAZ APRN T 786.07 WHEEZING 06/01/2010 KENNY DO, PHILLY K 466.0 BRONCHITIS, ACUTE 06/01/2010 KENNY DO, PHILLY K 724.2 PAIN LOW BACK 06/01/2010 KENNY DO, PHILLY K 786.07 WHEEZING 06/01/2010 JOE RODRIGUEZ LIVE T 46 6.0 BRONCHITIS, ACUTE 06/01/2010 JOE RODRIGUEZ LIVE T 72 4.2 PAIN LOW BACK 06/01/2010 JOE RODRIGUEZ LIVE T 786.07 WHEEZING 06/01/2010 JOE RODRIGUEZ LIVE T 46 6.0 BRONCHITIS, ACUTE 06/01/2010 JOE RODRIGUEZ LIVE T 72 4.2 PAIN LOW BACK 06/01/2010 JOE RODRIGUEZ, LIVE T 786.07 WHEEZING 06/01/2010 JOE RODRIGUEZ LIVE T 46 6.0 BRONCHITIS, ACUTE 06/01/2010 JOE RODRIGUEZ, LIVE T 72 4.2 PAIN LOW BACK 06/01/2010 JOE RODRIGUEZ LIVE T 786.07 WHEEZING 06/01/2010 JOE RODRIGUEZ LIVE T 46 6.0 BRONCHITIS, ACUTE 06/01/2010 JOE RODRIGUEZ LIVE T 72 4.2 PAIN LOW BACK 06/01/2010 JOE RODRIGUEZ LIVE T 786.07 WHEEZING 06/01/2010 JOE RODRIGUEZ LIVE T 46 6.0 BRONCHITIS, ACUTE 06/01/2010 JOE RODRIGUEZ LIVE T 72 4.2 PAIN LOW BACK 06/01/2010 JOE FIRE 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, LIVE T 786.07 WHEEZING 06/01/2010 JOE FIRE 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LIVE Mejía T 46 6.0 BRONCHITIS, ACUTE 06/01/2010 JOE FIRE 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, LIVE T 72 4.2 PAIN LOW BACK 06/01/2010 JOE FIRE 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LIVE Mejía T 786.07 WHEEZING 06/01/2010 KENNY DO, PHILLY K 466.0 BRONCHITIS, ACUTE 06/01/2010 KENNY DO, PHILLY K 724.2 PAIN LOW BACK 06/01/2010 KENNY DO, PHILLY K 786.07 WHEEZING 06/01/2010 JOE FIRE 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LIVE Mejía T 46 6.0 BRONCHITIS, ACUTE 06/01/2010 JOE FIRE 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LIVE Mejía T 72 4.2 PAIN LOW BACK 06/01/2010 JOE FIRE 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LIVE Mejía T 786.07 WHEEZING 06/01/2010 ROBLESAlfonzo RODRIGUEZ TAE A 46 6.0 BRONCHITIS, ACUTE 06/01/2010 ROBLESAlfonzo RODRIGUEZ TAE A 72 4.2 PAIN LOW BACK 06/01/2010 ROBLES APRN, TAE A 786.07 WHEEZING 06/01/2010 KENNY DO, PHILLY K 466.0 BRONCHITIS, ACUTE 06/01/2010 KENNY DO, PHILLY K 724.2 PAIN LOW BACK 06/01/2010 KENNY DO, PHILLY K 786.07 WHEEZING 06/01/2010 KENNY DO, PHILLY K 466.0 BRONCHITIS, ACUTE 06/01/2010 KENNY DO, PHILLY K 724.2 PAIN LOW BACK 06/01/2010 KENNY DO, PHILLY K 786.07 WHEEZING 06/01/2010 WHITE DDS, CHIO D 46 6.0 BRONCHITIS, ACUTE 06/01/2010 WHITE DDS, CHIO D 72 4.2 PAIN LOW BACK 06/01/2010 WHITE DDS, CHIO D 786.07 WHEEZING 06/01/2010 WHITE DDS, CHIO D 46 6.0 BRONCHITIS, ACUTE 06/01/2010 WHITE DDS, CHIO D 72 4.2 PAIN LOW BACK 06/01/2010 WHITE DDS, CHIO D 786.07 WHEEZING 06/01/2010 WHITE DDS, KELLEY J 46 6.0 BRONCHITIS, ACUTE 06/01/2010 WHITE DDS, KELLEY J 72 4.2 PAIN LOW BACK 06/01/2010 WHITE DDS, KELLEY J 786.07 WHEEZING 06/01/2010 LIVE DIAZ APRN 46 6.0 BRONCHITIS, ACUTE 06/01/2010 LIVE DIAZ APRN 72 4.2 PAIN LOW BACK 06/01/2010 LIVE DIAZ APRN 786.07 WHEEZING 07/16/2010 627.9 CAMMIE PAUSAL AND POSTMENOPAUSAL DISORDER UNSPECIFIED 07/16/2010 627.9 CAMMIE PAUSAL AND POSTMENOPAUSAL DISORDER UNSPECIFIED 07/16/2010 ADÁN FARFAN MD 627.9 MENOPAUSAL AND POSTMENOPAUSAL DISORDER UNSPECIFIED 07/16/2010 627.9 CAMMIE PAUSAL AND POSTMENOPAUSAL DISORDER UNSPECIFIED 07/16/2010 627.9 CAMMIE PAUSAL AND POSTMENOPAUSAL DISORDER UNSPECIFIED 07/16/2010 627.9 CAMMIE PAUSAL AND POSTMENOPAUSAL DISORDER UNSPECIFIED 07/16/2010 627.9 CAMMIE PAUSAL AND POSTMENOPAUSAL DISORDER UNSPECIFIED 07/16/2010 627.9 CAMMIE PAUSAL AND POSTMENOPAUSAL DISORDER UNSPECIFIED 07/16/2010 627.9 CAMMIE PAUSAL AND POSTMENOPAUSAL DISORDER UNSPECIFIED 07/16/2010 LIVE DIAZ APRN 62 7.9 MENOPAUSAL AND POSTMENOPAUSAL DISORDER UNSPECIFIED 07/16/2010 LIVE DIAZ APRN T 62 7.9 MENOPAUSAL AND POSTMENOPAUSAL DISORDER UNSPECIFIED 07/16/2010 MILO LEMUS MD 627.9 MENOPAUSAL AND POSTMENOPAUSAL DISORDER UNSPECIFIED 07/16/2010 LIVE DIAZ APRN T 62 7.9 MENOPAUSAL AND POSTMENOPAUSAL DISORDER UNSPECIFIED 07/16/2010 LIVE DIAZ APRN T 62 7.9 MENOPAUSAL AND POSTMENOPAUSAL DISORDER UNSPECIFIED 07/16/2010 LIVE DIAZ APRN T 62 7.9 MENOPAUSAL AND POSTMENOPAUSAL DISORDER UNSPECIFIED 07/16/2010 PHILLY KENNY DO K 627.9 MENOPAUSAL AND POSTMENOPAUSAL DISORDER UNSPECIFIED 07/16/2010 LIVE DIAZ APRN T 62 7.9 MENOPAUSAL AND POSTMENOPAUSAL DISORDER UNSPECIFIED 07/16/2010 LIVE DIAZ APRN T 62 7.9 MENOPAUSAL AND POSTMENOPAUSAL DISORDER UNSPECIFIED 07/16/2010 LIVE DIAZ APRN T 62 7.9 MENOPAUSAL AND POSTMENOPAUSAL DISORDER UNSPECIFIED 07/16/2010 LIVE DIAZ APRN T 62 7.9 MENOPAUSAL AND POSTMENOPAUSAL DISORDER UNSPECIFIED 07/16/2010 LIVE DIAZ APRN T 62 7.9 MENOPAUSAL AND POSTMENOPAUSAL DISORDER UNSPECIFIED 07/16/2010 LIVE DIAZ APRN T 62 7.9 MENOPAUSAL AND POSTMENOPAUSAL DISORDER UNSPECIFIED 07/16/2010 MARK KENNY DOA K 627.9 MENOPAUSAL AND POSTMENOPAUSAL DISORDER UNSPECIFIED 07/16/2010 LIVE DIAZ APRN 62 7.9 MENOPAUSAL AND POSTMENOPAUSAL DISORDER UNSPECIFIED 07/16/2010 ROBLESROSALINDA RODRIGUEZ, TAE A 62 7.9 MENOPAUSAL AND POSTMENOPAUSAL DISORDER UNSPECIFIED 07/16/2010 KENNY DO, PHILLY K 627.9 MENOPAUSAL AND POSTMENOPAUSAL DISORDER UNSPECIFIED 07/16/2010 KENNY DO, PHILLY K 627.9 MENOPAUSAL AND POSTMENOPAUSAL DISORDER UNSPECIFIED 07/16/2010 WHITE DDS, CHIO D 62 7.9 MENOPAUSAL AND POSTMENOPAUSAL DISORDER UNSPECIFIED 07/16/2010 WHITE DDS, CHIO D 62 7.9 MENOPAUSAL AND POSTMENOPAUSAL DISORDER UNSPECIFIED 07/16/2010 WHITE DDS, KELLEY J 62 7.9 MENOPAUSAL AND POSTMENOPAUSAL DISORDER UNSPECIFIED 07/16/2010 LIVE DIAZ APRN 62 7.9 MENOPAUSAL AND POSTMENOPAUSAL DISORDER UNSPECIFIED 01/04/2011 V68.1 ISSU E OF REPEAT PRESCRIPTIONS 01/04/2011 V68.1 ISSU E OF REPEAT PRESCRIPTIONS 01/04/2011 NAHEED MALHOTRA, ADÁN V68.1 ISSUE OF REPEAT PRESCRIPTIONS 01/04/2011 V68.1 ISSU E OF REPEAT PRESCRIPTIONS 01/04/2011 V68.1 ISSU E OF REPEAT PRESCRIPTIONS 01/04/2011 V68.1 ISSU E OF REPEAT PRESCRIPTIONS 01/04/2011 V68.1 ISSU E OF REPEAT PRESCRIPTIONS 01/04/2011 V68.1 ISSU E OF REPEAT PRESCRIPTIONS 01/04/2011 V68.1 ISSU E OF REPEAT PRESCRIPTIONS 01/04/2011 LIVE DIAZ APRN V6 8.1 ISSUE OF REPEAT PRESCRIPTIONS 01/04/2011 LIVE DIAZ APRN V6 8.1 ISSUE OF REPEAT PRESCRIPTIONS 01/04/2011 MARIAH MALHOTRA, MILO Ponce V68.1 ISSUE OF REPEAT PRESCRIPTIONS 01/04/2011 LIVE DIAZ APRN V6 8.1 ISSUE OF REPEAT PRESCRIPTIONS 01/04/2011 LIVE DIAZ APRN V6 8.1 ISSUE OF REPEAT PRESCRIPTIONS 01/04/2011 LIVE DIAZ APRN V6 8.1 ISSUE OF REPEAT PRESCRIPTIONS 01/04/2011 EFRAÍN CREWS PHILLY K V68.1 ISSUE OF REPEAT PRESCRIPTIONS 01/04/2011 LIVE DIAZ APRN V6 8.1 ISSUE OF REPEAT PRESCRIPTIONS 01/04/2011 LIVE DIAZ APRN V6 8.1 ISSUE OF REPEAT PRESCRIPTIONS 01/04/2011 LIVE DIAZ APRN V6 8.1 ISSUE OF REPEAT PRESCRIPTIONS 01/04/2011 LIVE DIAZ APRN V6 8.1 ISSUE OF REPEAT PRESCRIPTIONS 01/04/2011 LIVE DIAZ APRN V6 8.1 ISSUE OF REPEAT PRESCRIPTIONS 01/04/2011 LIVE DIAZ APRN V6 8.1 ISSUE OF REPEAT PRESCRIPTIONS 01/04/2011 KENNY DO, PHILLY K V68.1 ISSUE OF REPEAT PRESCRIPTIONS 01/04/2011 LIVE DIAZ APRN V6 8.1 ISSUE OF REPEAT PRESCRIPTIONS 01/04/2011 TAE ARBOLEDA APRN A V6 8.1 ISSUE OF REPEAT PRESCRIPTIONS 01/04/2011 KENNY DO, PHILLY K V68.1 ISSUE OF REPEAT PRESCRIPTIONS 01/04/2011 KENNY DO, PHILLY K V68.1 ISSUE OF REPEAT PRESCRIPTIONS 01/04/2011 WHITE DDS, CHIO D V6 8.1 ISSUE OF REPEAT PRESCRIPTIONS 01/04/2011 WHITE DDS, CHIO D V6 8.1 ISSUE OF REPEAT PRESCRIPTIONS 01/04/2011 WHITE DDS, KELLEY J V6 8.1 ISSUE OF REPEAT PRESCRIPTIONS 01/04/2011 LIVE DIAZ APRN V6 8.1 ISSUE OF REPEAT PRESCRIPTIONS 05/30/2011 785.1 PALP ITATIONS 05/30/2011 785.1 PALP ITATIONS 05/30/2011 ADÁN FARFAN MD 785.1 PALPITATIONS 05/30/2011 785.1 PALP ITATIONS 05/30/2011 785.1 PALP ITATIONS 05/30/2011 785.1 PALP ITATIONS 05/30/2011 785.1 PALP ITATIONS 05/30/2011 785.1 PALP ITATIONS 05/30/2011 785.1 PALP ITATIONS 05/30/2011 LIVE DIAZ APRN 78 5.1 PALPITATIONS 05/30/2011 LIVE DIAZ APRN 78 5.1 PALPITATIONS 05/30/2011 MILO LEMUS MD 785.1 PALPITATIONS 05/30/2011 LIVE DIAZ APRN 78 5.1 PALPITATIONS 05/30/2011 LIVE DIAZ APRN 78 5.1 PALPITATIONS 05/30/2011 LIVE DIAZ APRN 78 5.1 PALPITATIONS 05/30/2011 KENNY DO, PHILLY K 785.1 PALPITATIONS 05/30/2011 LIVE DIAZ APRN 78 5.1 PALPITATIONS 05/30/2011 JOE FIRE 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, LIVE T 78 5.1 PALPITATIONS 05/30/2011 LIVE DIAZ APRN T 78 5.1 PALPITATIONS 05/30/2011 LIVE DIAZ APRN T 78 5.1 PALPITATIONS 05/30/2011 LIVE DIAZ APRN T 78 5.1 PALPITATIONS 05/30/2011 LIVE DIAZ APRN T 78 5.1 PALPITATIONS 05/30/2011 KENNY DO, PHILLY K 785.1 PALPITATIONS 05/30/2011 LIVE DIAZ APRN T 78 5.1 PALPITATIONS 05/30/2011 ROBLESAlfonzo RODRIGUEZ TAE A 78 5.1 PALPITATIONS 05/30/2011 KENNY DO, PHILLY K 785.1 PALPITATIONS 05/30/2011 KENNY DO, PHILLY K 785.1 PALPITATIONS 05/30/2011 WHITE DDS, CHIO D 78 5.1 PALPITATIONS 05/30/2011 WHITE DDS, CHIO D 78 5.1 PALPITATIONS 05/30/2011 WHITE DDS, KELLEY J 78 5.1 PALPITATIONS 05/30/2011 LIVE DIAZ APRN T 78 5.1 PALPITATIONS 07/05/2011 424.0 MITR AL VALVE DISORDERS 07/05/2011 424.0 MITR AL VALVE DISORDERS 07/05/2011 ADÁN FARFAN MD 424.0 MITRAL VALVE DISORDERS 07/05/2011 424.0 MITR AL VALVE DISORDERS 07/05/2011 424.0 MITR AL VALVE DISORDERS 07/05/2011 424.0 MITR AL VALVE DISORDERS 07/05/2011 424.0 MITR AL VALVE DISORDERS 07/05/2011 424.0 MITR AL VALVE DISORDERS 07/05/2011 424.0 MITR AL VALVE DISORDERS 07/05/2011 LIVE DIAZ APRN T 42 4.0 MITRAL VALVE DISORDERS 07/05/2011 LIVE DIAZ APRN T 42 4.0 MITRAL VALVE DISORDERS 07/05/2011 MILO LEMUS MD 424.0 MITRAL VALVE DISORDERS 07/05/2011 LIVE DIAZ APRN T 42 4.0 MITRAL VALVE DISORDERS 07/05/2011 LIVE DIAZ APRN T 42 4.0 MITRAL VALVE DISORDERS 07/05/2011 LIVE DIAZ APRN T 42 4.0 MITRAL VALVE DISORDERS 07/05/2011 KENNY DO, PHILLY K 424.0 MITRAL VALVE DISORDERS 07/05/2011 LIVE DIAZ APRN 42 4.0 MITRAL VALVE DISORDERS 07/05/2011 LIVE DIAZ APRN 42 4.0 MITRAL VALVE DISORDERS 07/05/2011 LIVE DIAZ APRN T 42 4.0 MITRAL VALVE DISORDERS 07/05/2011 LIVE DIAZ APRN T 42 4.0 MITRAL VALVE DISORDERS 07/05/2011 LIVE DIAZ APRN T 42 4.0 MITRAL VALVE DISORDERS 07/05/2011 LIVE DIAZ APRN 42 4.0 MITRAL VALVE DISORDERS 07/05/2011 KENNY DO, PHILLY K 424.0 MITRAL VALVE DISORDERS 07/05/2011 LIVE DIAZ APRN T 42 4.0 MITRAL VALVE DISORDERS 07/05/2011 ROBLESROSALINDA RODRIGUEZ TAE A 42 4.0 MITRAL VALVE DISORDERS 07/05/2011 KENNY DO, PHILLY K 424.0 MITRAL VALVE DISORDERS 07/05/2011 KENNY DO, PHILLY K 424.0 MITRAL VALVE DISORDERS 07/05/2011 WHITE DDS, CHIO D 42 4.0 MITRAL VALVE DISORDERS 07/05/2011 WHITE DDS, CHIO D 42 4.0 MITRAL VALVE DISORDERS 07/05/2011 WHITE DDS, KELLEY J 42 4.0 MITRAL VALVE DISORDERS 07/05/2011 LIVE DIAZ APRN T 42 4.0 MITRAL VALVE DISORDERS 08/08/2011 462 ACUTE PHARYNGITIS 08/08/2011 462 ACUTE PHARYNGITIS 08/08/2011 NAHEED MALHOTRA, ADÁN 462 ACUTE PHARYNGITIS 08/08/2011 462 ACUTE PHARYNGITIS 08/08/2011 462 ACUTE PHARYNGITIS 08/08/2011 462 ACUTE PHARYNGITIS 08/08/2011 462 ACUTE PHARYNGITIS 08/08/2011 462 ACUTE PHARYNGITIS 08/08/2011 462 ACUTE PHARYNGITIS 08/08/2011 LIVE DIAZ APRN 46 2 ACUTE PHARYNGITIS 08/08/2011 LIVE DIAZ APRN 46 2 ACUTE PHARYNGITIS 08/08/2011 MARIAH MALHOTRA, MILO Ponce 462 ACUTE PHARYNGITIS 08/08/2011 LIVE DIAZ APRN 46 2 ACUTE PHARYNGITIS 08/08/2011 LIVE DIAZ APRN 46 2 ACUTE PHARYNGITIS 08/08/2011 LIVE DIAZ APRN 46 2 ACUTE PHARYNGITIS 08/08/2011 KENNY DO, PHILLY K 462 ACUTE PHARYNGITIS 08/08/2011 LIVE DIAZ APRN 46 2 ACUTE PHARYNGITIS 08/08/2011 LIVE DIAZ APRN 46 2 ACUTE PHARYNGITIS 08/08/2011 LIVE DIAZ APRN 46 2 ACUTE PHARYNGITIS 08/08/2011 LIVE DIAZ APRN 46 2 ACUTE PHARYNGITIS 08/08/2011 LIVE DIAZ APRN 46 2 ACUTE PHARYNGITIS 08/08/2011 LIVE DIAZ APRN 46 2 ACUTE PHARYNGITIS 08/08/2011 KENNY DO, PHILLY K 462 ACUTE PHARYNGITIS 08/08/2011 LIVE DIAZ APRN 46 2 ACUTE PHARYNGITIS 08/08/2011 ROBLESTAE TELLEZ APRN 46 2 ACUTE PHARYNGITIS 08/08/2011 KENNY DO, PHILLY K 462 ACUTE PHARYNGITIS 08/08/2011 KENNY DO, PHILLY K 462 ACUTE PHARYNGITIS 08/08/2011 WHITE DDS, CHIO D 46 2 ACUTE PHARYNGITIS 08/08/2011 WHITE DDS, CHIO D 46 2 ACUTE PHARYNGITIS 08/08/2011 WHITE DDS, KELLEY J 46 2 ACUTE PHARYNGITIS 08/08/2011 LIVE DIAZ APRN 46 2 ACUTE PHARYNGITIS 12/13/2011 V07.4 HORM ONE REPLACEMENT THERAPY (POSTMENOPAUSAL) 12/13/2011 V07.4 HORM ONE REPLACEMENT THERAPY (POSTMENOPAUSAL) 12/13/2011 ADÁN FARFAN MD V07.4 HORMONE REPLACEMENT THERAPY (POSTMENOPAUSAL) 12/13/2011 V07.4 HORM ONE REPLACEMENT THERAPY (POSTMENOPAUSAL) 12/13/2011 V07.4 HORM ONE REPLACEMENT THERAPY (POSTMENOPAUSAL) 12/13/2011 V07.4 HORM ONE REPLACEMENT THERAPY (POSTMENOPAUSAL) 12/13/2011 V07.4 HORM ONE REPLACEMENT THERAPY (POSTMENOPAUSAL) 12/13/2011 V07.4 HORM ONE REPLACEMENT THERAPY (POSTMENOPAUSAL) 12/13/2011 V07.4 HORM ONE REPLACEMENT THERAPY (POSTMENOPAUSAL) 12/13/2011 LIVE DIAZ APRN V0 7.4 HORMONE REPLACEMENT THERAPY (POSTMENOPAUSAL) 12/13/2011 LIVE DIAZ APRN V0 7.4 HORMONE REPLACEMENT THERAPY (POSTMENOPAUSAL) 12/13/2011 MILO LEMUS MD V07.4 HORMONE REPLACEMENT THERAPY (POSTMENOPAUSAL) 12/13/2011 LIVE DIAZ APRN V0 7.4 HORMONE REPLACEMENT THERAPY (POSTMENOPAUSAL) 12/13/2011 LIVE DIAZ APRN T V0 7.4 HORMONE REPLACEMENT THERAPY (POSTMENOPAUSAL) 12/13/2011 LIVE DIAZ APRN T V0 7.4 HORMONE REPLACEMENT THERAPY (POSTMENOPAUSAL) 12/13/2011 PHILLY KENNY DO V07.4 HORMONE REPLACEMENT THERAPY (POSTMENOPAUSAL) 12/13/2011 LIVE DIAZ APRN V0 7.4 HORMONE REPLACEMENT THERAPY (POSTMENOPAUSAL) 12/13/2011 LIVE DIAZ APRN V0 7.4 HORMONE REPLACEMENT THERAPY (POSTMENOPAUSAL) 12/13/2011 LIVE DIAZ APRN V0 7.4 HORMONE REPLACEMENT THERAPY (POSTMENOPAUSAL) 12/13/2011 LIVE DIAZ APRN V0 7.4 HORMONE REPLACEMENT THERAPY (POSTMENOPAUSAL) 12/13/2011 LIVE DIAZ APRN V0 7.4 HORMONE REPLACEMENT THERAPY (POSTMENOPAUSAL) 12/13/2011 LIVE DIAZ APRN V0 7.4 HORMONE REPLACEMENT THERAPY (POSTMENOPAUSAL) 12/13/2011 PHILLY KENNY DO V07.4 HORMONE REPLACEMENT THERAPY (POSTMENOPAUSAL) 12/13/2011 LIVE DIAZ APRN T V0 7.4 HORMONE REPLACEMENT THERAPY (POSTMENOPAUSAL) 12/13/2011 TAE ARBOLEDA APRN V0 7.4 HORMONE REPLACEMENT THERAPY (POSTMENOPAUSAL) 12/13/2011 PHILLY KENNY DO V07.4 HORMONE REPLACEMENT THERAPY (POSTMENOPAUSAL) 12/13/2011 PHILLY KENNY DO K V07.4 HORMONE REPLACEMENT THERAPY (POSTMENOPAUSAL) 12/13/2011 REZA COOPERS, CHIO D V0 7.4 HORMONE REPLACEMENT THERAPY (POSTMENOPAUSAL) 12/13/2011 WHITE DDS, CHIO D V0 7.4 HORMONE REPLACEMENT THERAPY (POSTMENOPAUSAL) 12/13/2011 REZA DDS, KELLEY J V0 7.4 HORMONE REPLACEMENT THERAPY (POSTMENOPAUSAL) 12/13/2011 LIVE DIAZ APRN T V0 7.4 HORMONE REPLACEMENT THERAPY (POSTMENOPAUSAL) 02/07/2012 719.46 KNE E PAIN 02/07/2012 780.79 MAL AISE AND FATIGUE 02/07/2012 783.1 WEIG HT GAIN ABNORMAL 02/07/2012 V65.3 COUN SELING- OBESITY (DIET) 02/07/2012 719.46 KNE E PAIN 02/07/2012 780.79 MAL AISE AND FATIGUE 02/07/2012 783.1 WEIG HT GAIN ABNORMAL 02/07/2012 V65.3 COUN SELING- OBESITY (DIET) 02/07/2012 ADÁN FARFAN MD 719.4 6 KNEE PAIN 02/07/2012 ADÁN FARFAN MD 780.7 9 MALAISE AND FATIGUE 02/07/2012 ADÁN FARFAN MD 783.1 WEIGHT GAIN ABNORMAL 02/07/2012 ADÁN FARFAN MD V65.3 COUNSELING- OBESITY (DIET) 02/07/2012 719.46 KNE E PAIN 02/07/2012 780.79 MAL AISE AND FATIGUE 02/07/2012 783.1 WEIG HT GAIN ABNORMAL 02/07/2012 V65.3 COUN SELING- OBESITY (DIET) 02/07/2012 719.46 KNE E PAIN 02/07/2012 780.79 MAL AISE AND FATIGUE 02/07/2012 783.1 WEIG HT GAIN ABNORMAL 02/07/2012 V65.3 COUN SELING- OBESITY (DIET) 02/07/2012 719.46 KNE E PAIN 02/07/2012 780.79 MAL AISE AND FATIGUE 02/07/2012 783.1 WEIG HT GAIN ABNORMAL 02/07/2012 V65.3 COUN SELING- OBESITY (DIET) 02/07/2012 719.46 KNE E PAIN 02/07/2012 780.79 MAL AISE AND FATIGUE 02/07/2012 783.1 WEIG HT GAIN ABNORMAL 02/07/2012 V65.3 COUN SELING- OBESITY (DIET) 02/07/2012 719.46 KNE E PAIN 02/07/2012 780.79 MAL AISE AND FATIGUE 02/07/2012 783.1 WEIG HT GAIN ABNORMAL 02/07/2012 V65.3 COUN SELING- OBESITY (DIET) 02/07/2012 719.46 KNE E PAIN 02/07/2012 780.79 MAL AISE AND FATIGUE 02/07/2012 783.1 WEIG HT GAIN ABNORMAL 02/07/2012 V65.3 COUN SELING- OBESITY (DIET) 02/07/2012 LIVE DIAZ APRN 719.46 KNEE PAIN 02/07/2012 LIVE DIAZ APRN 780.79 MALAISE AND FATIGUE 02/07/2012 LIVE DIAZ APRN 78 3.1 WEIGHT GAIN ABNORMAL 02/07/2012 LIVE DIAZ APRN V6 5.3 COUNSELING- OBESITY (DIET) 02/07/2012 LIVE DIAZ APRN 719.46 KNEE PAIN 02/07/2012 LIVE DIAZ APRN 780.79 MALAISE AND FATIGUE 02/07/2012 LIVE DIAZ APRN 78 3.1 WEIGHT GAIN ABNORMAL 02/07/2012 LIVE DIAZ APRN V6 5.3 COUNSELING- OBESITY (DIET) 02/07/2012 MILO LEMUS MD 719.46 KNEE PAIN 02/07/2012 MILO LEMUS MD 780.79 MALAISE AND FATIGUE 02/07/2012 MILO LEMUS MD 783.1 WEIGHT GAIN ABNORMAL 02/07/2012 MILO LEMUS MD V65.3 COUNSELING- OBESITY (DIET) 02/07/2012 LIVE DIAZ APRN 719.46 KNEE PAIN 02/07/2012 LIVE DIAZ APRN 780.79 MALAISE AND FATIGUE 02/07/2012 LIVE DIAZ APRN 78 3.1 WEIGHT GAIN ABNORMAL 02/07/2012 LIVE DIAZ APRN V6 5.3 COUNSELING- OBESITY (DIET) 02/07/2012 LIVE DIAZ APRN 719.46 KNEE PAIN 02/07/2012 LIVE DIAZ APRN 780.79 MALAISE AND FATIGUE 02/07/2012 LIVE DIAZ APRN 78 3.1 WEIGHT GAIN ABNORMAL 02/07/2012 LIVE DIAZ APRN V6 5.3 COUNSELING- OBESITY (DIET) 02/07/2012 LIVE DIAZ APRN 719.46 KNEE PAIN 02/07/2012 LIVE DIAZ APRN 780.79 MALAISE AND FATIGUE 02/07/2012 LIVE DIAZ APRN 78 3.1 WEIGHT GAIN ABNORMAL 02/07/2012 LIVE DIAZ APRN V6 5.3 COUNSELING- OBESITY (DIET) 02/07/2012 KENNY DO, PHILLY K 719.46 KNEE PAIN 02/07/2012 KENNY DO, PHILLY K 780.79 MALAISE AND FATIGUE 02/07/2012 KENNY DO, PHILLY K 783.1 WEIGHT GAIN ABNORMAL 02/07/2012 KENNY DO, PHILLY K V65.3 COUNSELING- OBESITY (DIET) 02/07/2012 LIVE DIAZ APRN T 719.46 KNEE PAIN 02/07/2012 LIVE DIAZ APRN 780.79 MALAISE AND FATIGUE 02/07/2012 JOE 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, LIVE T 78 3.1 WEIGHT GAIN ABNORMAL 02/07/2012 LIVE DIAZ APRN V6 5.3 COUNSELING- OBESITY (DIET) 02/07/2012 LIVE DIAZ APRN T 719.46 KNEE PAIN 02/07/2012 LIVE DIAZ APRN T 780.79 MALAISE AND FATIGUE 02/07/2012 LIVE DIAZ APRN 78 3.1 WEIGHT GAIN ABNORMAL 02/07/2012 LIVE DIAZ APRN V6 5.3 COUNSELING- OBESITY (DIET) 02/07/2012 LIVE DIAZ APRN 719.46 KNEE PAIN 02/07/2012 LIVE DIAZ APRN 780.79 MALAISE AND FATIGUE 02/07/2012 LIVE DIAZ APRN T 78 3.1 WEIGHT GAIN ABNORMAL 02/07/2012 LIVE DIAZ APRN V6 5.3 COUNSELING- OBESITY (DIET) 02/07/2012 LIVE DIAZ APRN 719.46 KNEE PAIN 02/07/2012 LIVE DIAZ APRN 780.79 MALAISE AND FATIGUE 02/07/2012 LIVE DIAZ APRN 78 3.1 WEIGHT GAIN ABNORMAL 02/07/2012 LIVE DIAZ APRN V6 5.3 COUNSELING- OBESITY (DIET) 02/07/2012 LIVE DIAZ APRN T 719.46 KNEE PAIN 02/07/2012 LIVE DIAZ APRN 780.79 MALAISE AND FATIGUE 02/07/2012 LIVE DIAZ APRN 78 3.1 WEIGHT GAIN ABNORMAL 02/07/2012 LIVE DIAZ APRN V6 5.3 COUNSELING- OBESITY (DIET) 02/07/2012 LIVE DIAZ APRN 719.46 KNEE PAIN 02/07/2012 LIVE DIAZ APRN 780.79 MALAISE AND FATIGUE 02/07/2012 LIVE DIAZ APRN T 78 3.1 WEIGHT GAIN ABNORMAL 02/07/2012 LIVE DIAZ APRN V6 5.3 COUNSELING- OBESITY (DIET) 02/07/2012 KENNY DO, PHILLY K 719.46 KNEE PAIN 02/07/2012 KENNY DO, PHILLY K 780.79 MALAISE AND FATIGUE 02/07/2012 KENNY DO, PHILLY K 783.1 WEIGHT GAIN ABNORMAL 02/07/2012 KENNY DO, PHILLY K V65.3 COUNSELING- OBESITY (DIET) 02/07/2012 LIVE DIAZ APRN T 719.46 KNEE PAIN 02/07/2012 LIVE DIAZ APRN 780.79 MALAISE AND FATIGUE 02/07/2012 JOE BETANCURLIVE Mejía 78 3.1 WEIGHT GAIN ABNORMAL 02/07/2012 JOE BETANCURLIVE Mejía V6 5.3 COUNSELING- OBESITY (DIET) 02/07/2012 CAROLE ARBOLEDA APRNIDI A 719.46 KNEE PAIN 02/07/2012 ROBLES RODRIGUEZ, TAE A 780.79 MALAISE AND FATIGUE 02/07/2012 CAROLE ARBOLEDA APRNIDI A 78 3.1 WEIGHT GAIN ABNORMAL 02/07/2012 CAROLE ARBOLEDA APRNIDI A V6 5.3 COUNSELING- OBESITY (DIET) 02/07/2012 KENNY DO, PHILLY [...] AND FATIGUE 02/07/2012 WHITE DDS, CHIO D 78 3.1 WEIGHT GAIN ABNORMAL 02/07/2012 WHITE DDS, CHIO D V6 5.3 COUNSELING- OBESITY (DIET) 02/07/2012 WHITE DDS, CHIO D 719.46 KNEE PAIN 02/07/2012 WHITE DDS, CHIO D 780.79 MALAISE AND FATIGUE 02/07/2012 WHITE DDS, CHIO D 78 3.1 WEIGHT GAIN ABNORMAL 02/07/2012 WHITE DDS, CHIO D V6 5.3 COUNSELING- OBESITY (DIET) 02/07/2012 WHITE DDS, KELLEY J 719.46 KNEE PAIN 02/07/2012 WHITE DDS, KELLEY J 780.79 MALAISE AND FATIGUE 02/07/2012 WHITE DDS, KELLEY J 78 3.1 WEIGHT GAIN ABNORMAL 02/07/2012 WHITE DDS, KELLEY J V6 5.3 COUNSELING- OBESITY (DIET) 02/07/2012 LIVE DIAZ APRN 719.46 KNEE PAIN 02/07/2012 LIVE DIAZ APRN 780.79 MALAISE AND FATIGUE 02/07/2012 LIVE DIAZ APRN 78 3.1 WEIGHT GAIN ABNORMAL 02/07/2012 LIVE DIAZ APRN V6 5.3 COUNSELING- OBESITY (DIET) 06/28/2012 272.4 HYPE RLIPIDEMIA 06/28/2012 729.5 LEG PAIN 06/28/2012 272.4 HYPE RLIPIDEMIA 06/28/2012 729.5 LEG PAIN 06/28/2012 ADÁN FARFAN MD 272.4 HYPERLIPIDEMIA 06/28/2012 ADÁN FARFAN MD 729.5 LEG PAIN 06/28/2012 272.4 HYPE RLIPIDEMIA 06/28/2012 729.5 LEG PAIN 06/28/2012 272.4 HYPE RLIPIDEMIA 06/28/2012 729.5 LEG PAIN 06/28/2012 272.4 HYPE RLIPIDEMIA 06/28/2012 729.5 LEG PAIN 06/28/2012 272.4 HYPE RLIPIDEMIA 06/28/2012 729.5 LEG PAIN 06/28/2012 272.4 HYPE RLIPIDEMIA 06/28/2012 729.5 LEG PAIN 06/28/2012 272.4 HYPE RLIPIDEMIA 06/28/2012 729.5 LEG PAIN 06/28/2012 LIVE DIAZ APRN 27 2.4 HYPERLIPIDEMIA 06/28/2012 LIVE DIAZ APRN 72 9.5 LEG PAIN 06/28/2012 LIVE DIAZ APRN 27 2.4 HYPERLIPIDEMIA 06/28/2012 LIVE DIAZ APRN 72 9.5 LEG PAIN 06/28/2012 MILO LEMUS MD 272.4 HYPERLIPIDEMIA 06/28/2012 MILO LEMUS MD 729.5 LEG PAIN 06/28/2012 LIVE DIAZ APRN 27 2.4 HYPERLIPIDEMIA 06/28/2012 LIVE DIAZ APRN 72 9.5 LEG PAIN 06/28/2012 LIVE DIAZ APRN 27 2.4 HYPERLIPIDEMIA 06/28/2012 LIVE DIAZ APRN 72 9.5 LEG PAIN 06/28/2012 JOE FIRE 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, LIVE T 27 2.4 HYPERLIPIDEMIA 06/28/2012 JOE FIRE 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, LIVE T 72 9.5 LEG PAIN 06/28/2012 KENNY DO, PHILLY K 272.4 HYPERLIPIDEMIA 06/28/2012 KENNY DO, PHILLY K 729.5 LEG PAIN 06/28/2012 JOE BETANCURN, LIVE T 27 2.4 HYPERLIPIDEMIA 06/28/2012 JOE BETANCURN, LIVE T 72 9.5 LEG PAIN 06/28/2012 JOE BETANCURN, LIVE T 27 2.4 HYPERLIPIDEMIA 06/28/2012 JOE BETANCURN, LIVE T 72 9.5 LEG PAIN 06/28/2012 JOE BETANCURN, LIVE T 27 2.4 HYPERLIPIDEMIA 06/28/2012 JOE BETANCURN, LIVE T 72 9.5 LEG PAIN 06/28/2012 JOE BETANCURN, LIVE T 27 2.4 HYPERLIPIDEMIA 06/28/2012 JOE BETANCURN, LIVE T 72 9.5 LEG PAIN 06/28/2012 JOE BETANCURN, LIVE T 27 2.4 HYPERLIPIDEMIA 06/28/2012 JOE BETANCURN, LIVE T 72 9.5 LEG PAIN 06/28/2012 JOE FIRE 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, LIVE T 27 2.4 HYPERLIPIDEMIA 06/28/2012 JOE BETANCURN, LIVE T 72 9.5 LEG PAIN 06/28/2012 KENNY DO, PHILLY K 272.4 HYPERLIPIDEMIA 06/28/2012 KENNY DO, PHILLY K 729.5 LEG PAIN 06/28/2012 JOE FIRE 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, LIVE T 27 2.4 HYPERLIPIDEMIA 06/28/2012 JOE BETANCURN, LIVE T 72 9.5 LEG PAIN 06/28/2012 ROBLES APRN, TAE A 27 2.4 HYPERLIPIDEMIA 06/28/2012 ROBLES APRN, TAE A 72 9.5 LEG PAIN 06/28/2012 KENNY DO, PHILLY K 272.4 HYPERLIPIDEMIA 06/28/2012 KENNY DO, PHILLY K 729.5 LEG PAIN 06/28/2012 KENNY DO, PHILLY K 272.4 HYPERLIPIDEMIA 06/28/2012 KENNY DO, PHILLY K 729.5 LEG PAIN 06/28/2012 WHITE DDS, CHIO D 27 2.4 HYPERLIPIDEMIA 06/28/2012 WHITE DDS, CHIO D 72 9.5 LEG PAIN 06/28/2012 WHITE DDS, CHIO D 27 2.4 HYPERLIPIDEMIA 06/28/2012 WHITE DDS, CHIO D 72 9.5 LEG PAIN 06/28/2012 WHITE DDS, KELLEY J 27 2.4 HYPERLIPIDEMIA 06/28/2012 WHITE DDS, KELLEY J 72 9.5 LEG PAIN 06/28/2012 LIVE DIAZ APRN T 27 2.4 HYPERLIPIDEMIA 06/28/2012 LIVE DIAZ APRN 72 9.5 LEG PAIN 11/29/2012 780.57 SLE EP APNEA 11/29/2012 ADÁN FARFAN MD 780.5 7 SLEEP APNEA 11/29/2012 780.57 SLE EP APNEA 11/29/2012 780.57 SLE EP APNEA 11/29/2012 780.57 SLE EP APNEA 11/29/2012 780.57 SLE EP APNEA 11/29/2012 780.57 SLE EP APNEA 11/29/2012 780.57 SLE EP APNEA 11/29/2012 LIVE DIAZ APRN T 780.57 SLEEP APNEA 11/29/2012 LIVE DIAZ APRN T 780.57 SLEEP APNEA 11/29/2012 MARIAH MALHOTRA, MILO Ponce 780.57 SLEEP APNEA 11/29/2012 LIVE DIAZ APRN T 780.57 SLEEP APNEA 11/29/2012 LIVE DIAZ APRN T 780.57 SLEEP APNEA 11/29/2012 LIVE DIAZ APRN T 780.57 SLEEP APNEA 11/29/2012 EFRAÍN CREWS PHILLY K 780.57 SLEEP APNEA 11/29/2012 JOE RODRIGUEZ LIVE T 780.57 SLEEP APNEA 11/29/2012 JOE RODRIGUEZ LIVE T 780.57 SLEEP APNEA 11/29/2012 JOE RODRIGUEZ LIVE T 780.57 SLEEP APNEA 11/29/2012 JOE RODRIGUEZ LIVE T 780.57 SLEEP APNEA 11/29/2012 LIVE DIAZ APRN T 780.57 SLEEP APNEA 11/29/2012 JOE RODRIGUEZ LIVE T 780.57 SLEEP APNEA 11/29/2012 EFRAÍN CREWS PHILLY K 780.57 SLEEP APNEA 11/29/2012 JOE RODRIGUEZ LIVE T 780.57 SLEEP APNEA 11/29/2012 ROBLES RODRIGUEZ TAE A 780.57 SLEEP APNEA 11/29/2012 KENNY , PHILLY K 780.57 SLEEP APNEA 11/29/2012 KENNY DO PHILLY K 780.57 SLEEP APNEA 11/29/2012 REZA DDS, CHIO Claudio 780.57 SLEEP APNEA 11/29/2012 WHITE DDS, CHIO Claudio 780.57 SLEEP APNEA 11/29/2012 WHITE DDSKELLEY 780.57 SLEEP APNEA 12/16/2012 ADÁN FARFAN MD 785.6 ENLARGEMENT OF LYMPH NODES 12/16/2012 785.6 ENLA RGEMENT OF LYMPH NODES 12/16/2012 785.6 ENLA RGEMENT OF LYMPH NODES 12/16/2012 785.6 ENLA RGEMENT OF LYMPH NODES 12/16/2012 785.6 ENLA RGEMENT OF LYMPH NODES 12/16/2012 785.6 ENLA RGEMENT OF LYMPH NODES 12/16/2012 785.6 ENLA RGEMENT OF LYMPH NODES 12/16/2012 JOE RODRIGUEZ LIVE T 78 5.6 ENLARGEMENT OF LYMPH NODES 12/16/2012 JOE RODRIGUEZ LIVE T 78 5.6 ENLARGEMENT OF LYMPH NODES 12/16/2012 MILO LEMUS MD 785.6 ENLARGEMENT OF LYMPH NODES 12/16/2012 JOE RODRIGUEZ LIVE T 78 5.6 ENLARGEMENT OF LYMPH NODES 12/16/2012 JOE RODRIGUEZ LIVE T 78 5.6 ENLARGEMENT OF LYMPH NODES 12/16/2012 JOE RODRIGUEZ LIVE T 78 5.6 ENLARGEMENT OF LYMPH NODES 12/16/2012 EFRAÍN CREWS PHILLY K 785.6 ENLARGEMENT OF LYMPH NODES 12/16/2012 JOE RODRIGUEZ LIVE T 78 5.6 ENLARGEMENT OF LYMPH NODES 12/16/2012 JOE RODRIGUEZ LIVE T 78 5.6 ENLARGEMENT OF LYMPH NODES 12/16/2012 JOE RODRIGUEZ LIVE T 78 5.6 ENLARGEMENT OF LYMPH NODES 12/16/2012 JOE RODRIGUEZ LIVE T 78 5.6 ENLARGEMENT OF LYMPH NODES 12/16/2012 JOE RODRIGUEZ LIVE T 78 5.6 ENLARGEMENT OF LYMPH NODES 12/16/2012 JOE RODRIGUEZ LIVE T 78 5.6 ENLARGEMENT OF LYMPH NODES 12/16/2012 EFRAÍN CREWS PHILLY K 785.6 ENLARGEMENT OF LYMPH NODES 12/16/2012 JOE RODRIGUEZ LIVE T 78 5.6 ENLARGEMENT OF LYMPH NODES 12/16/2012 ROBLES RODRIGUEZ TAE A 78 5.6 ENLARGEMENT OF LYMPH NODES 12/16/2012 KENNY DO, PHILLY K 785.6 ENLARGEMENT OF LYMPH NODES 12/16/2012 KENNY DO, PHILLY K 785.6 ENLARGEMENT OF LYMPH NODES 12/16/2012 REZA DDS, CHIO D 78 5.6 ENLARGEMENT OF LYMPH NODES 12/16/2012 REZA COOPERSCHIO D 78 5.6 ENLARGEMENT OF LYMPH NODES 12/16/2012 REZA COOPERS, KELLEY J 78 5.6 ENLARGEMENT OF LYMPH NODES 03/02/2013 MILO LEMUS [...] 03/14/2013 278.00 OBESITY 03/14/2013 LIVE DIAZ APRN 278.00 OBESITY 03/14/2013 LIVE DIAZ APRN T 278.00 OBESITY 03/14/2013 MILO LEMUS MD 278.00 OBESITY 03/14/2013 LIVE DIAZ APRN T 278.00 OBESITY 03/14/2013 LIVE DIAZ APRN T 278.00 OBESITY 03/14/2013 LIVE DIAZ APRN T 278.00 OBESITY 03/14/2013 PHILLY KENNY DO K 278.00 OBESITY 03/14/2013 LIVE DIAZ APRN T 278.00 OBESITY 03/14/2013 LIVE DIAZ APRN T 278.00 OBESITY 03/14/2013 LIVE DIAZ APRN T 278.00 OBESITY 03/14/2013 LIVE DIAZ APRN T 278.00 OBESITY 03/14/2013 LIVE DIAZ APRN T 278.00 OBESITY 03/14/2013 LIVE DIAZ APRN T 278.00 OBESITY 03/14/2013 EFRAÍN CREWS PHILLY K 278.00 OBESITY 03/14/2013 LIVE DIAZ APRN T 278.00 OBESITY 03/14/2013 TAE ARBOLEDA APRN A 278.00 OBESITY 03/14/2013 KENNY DO, PHILLY K 278.00 OBESITY 03/14/2013 KENNY DO, PHILLY K 278.00 OBESITY 03/14/2013 WHITE DDS, CHIO D 278.00 OBESITY 03/14/2013 WHITE DDS, CHIO D 278.00 OBESITY 03/14/2013 WHITE DDS, KELLEY J 278.00 OBESITY 04/09/[address] PAIN 04/09/[address]IN 04/09/[address]IN 04/09/[address] PAIN 04/09/2013 JOE RODRIGUEZ, LIVE T 786.50 [...] T 786.50 CHEST PAIN 04/09/2013 JOE RODRIGUEZ, ILVE T 786.50 CHEST PAIN 04/09/2013 JOE RODRIGUEZ, LIVE T 786.50 CHEST PAIN 04/09/2013 JOE RODRIGUEZ, LIVE T 786.50 CHEST PAIN 04/09/2013 JOE RODRIGUEZ LIVE T 786.50 CHEST PAIN 04/09/2013 KENNY [...] 786.50 CHEST PAIN 04/09/2013 WHITE DDS, KELLEY J 786.50 CHEST PAIN 06/27/2013 682.9 CELL ULITIS AND ABSCESS OF UNSPECIFIED SITES 06/27/2013 682.9 CELL ULITIS AND ABSCESS OF UNSPECIFIED SITES 06/27/2013 JOE RODRIGUEZ LIVE T 68 2.9 CELLULITIS AND ABSCESS OF UNSPECIFIED SITES 06/27/2013 JOE RODRIGUEZ LIVE T 68 2.9 CELLULITIS AND ABSCESS OF UNSPECIFIED SITES 06/27/2013 MILO LEMUS MD 682.9 CELLULITIS AND ABSCESS OF UNSPECIFIED SITES 06/27/2013 LIVE DIAZ APRN T 68 2.9 CELLULITIS AND ABSCESS OF UNSPECIFIED SITES 06/27/2013 JOE BETANCURN LIVE T 68 2.9 CELLULITIS AND ABSCESS OF UNSPECIFIED SITES 06/27/2013 JOE RODRIGUEZ LIVE T 68 2.9 CELLULITIS AND ABSCESS OF UNSPECIFIED SITES 06/27/2013 KENNY DO, PHILLY K 682.9 CELLULITIS AND ABSCESS OF UNSPECIFIED SITES 06/27/2013 JOE RODRIGUEZ LIVE T 68 2.9 CELLULITIS AND ABSCESS OF UNSPECIFIED SITES 06/27/2013 LIVE DIAZ APRN T 68 2.9 CELLULITIS AND ABSCESS OF UNSPECIFIED SITES 06/27/2013 JOE RODRIGUEZ LIVE T 68 2.9 CELLULITIS AND ABSCESS OF UNSPECIFIED SITES 06/27/2013 JOE RODRIGUEZ LIVE T 68 2.9 CELLULITIS AND ABSCESS OF UNSPECIFIED SITES 06/27/2013 JOE RODRIGUEZ LIVE T 68 2.9 CELLULITIS AND ABSCESS OF UNSPECIFIED SITES 06/27/2013 JOE RODRIGUEZ LIVE T 68 2.9 CELLULITIS AND ABSCESS OF UNSPECIFIED SITES 06/27/2013 KENNY DO, PHILLY K 682.9 CELLULITIS AND ABSCESS OF UNSPECIFIED SITES 06/27/2013 JOE RODRIGUEZ LIVE T 68 2.9 CELLULITIS AND ABSCESS OF UNSPECIFIED SITES 06/27/2013 ROBLESTAE TELLEZ APRN A 68 2.9 CELLULITIS AND ABSCESS OF UNSPECIFIED SITES 06/27/2013 KENNY DO, PHILLY K 682.9 CELLULITIS AND ABSCESS OF UNSPECIFIED SITES 06/27/2013 KENNY DO, PHILLY K 682.9 CELLULITIS AND ABSCESS OF UNSPECIFIED SITES 06/27/2013 REZA COOPERS, CHIO D 68 2.9 CELLULITIS AND ABSCESS OF UNSPECIFIED SITES 06/27/2013 REZA COOPERS, CHIO D 68 2.9 CELLULITIS AND ABSCESS OF UNSPECIFIED SITES 06/27/2013 REZA COOPERSKELLEY 68 2.9 CELLULITIS AND ABSCESS OF UNSPECIFIED SITES 07/02/2013 LM MALHOTRA, LEANDRA S Ot 041.12 METHICILLIN RESISTANT STAPHYLOCOCCUS AUR 07/02/2013 LM MALHOTRA, LEANDRA S Ot 272.4 HYPERLIPIDEMIA NEC/NOS 07/02/2013 LEANDRA AMATO MD S Ot 305.1 TOBACCO USE DISORDER 07/02/2013 LEANDRA AMATO MD S Ot 31 1 DEPRESSIVE DISORDER NEC 07/02/2013 LEANDRA AMATO MD S Ot 355.8 MONONEURITIS LEG NOS 07/02/2013 LEANDRA AMATO MD S Ot 682.0 CELLULITIS OF FACE 07/02/2013 LEANDRA AMATO MD S Ot 724.2 LUMBAGO 08/09/2013 LIVE DIAZ APRN T 84 4.9 SPRAIN/STRAIN KNEE/LEG 08/09/2013 MARIAH MALHOTRA, MILO Ponce 844.9 SPRAIN/STRAIN KNEE/LEG 08/09/2013 LIVE DIAZ APRN T 84 4.9 SPRAIN/STRAIN KNEE/LEG 08/09/2013 LIVE DIAZ APRN T 84 4.9 SPRAIN/STRAIN KNEE/LEG 08/09/2013 LIVE DIAZ APRN T 84 4.9 SPRAIN/STRAIN KNEE/LEG 08/09/2013 PHILLY KENNY DO K 844.9 SPRAIN/STRAIN KNEE/LEG 08/09/2013 LIVE DIAZ APRN T 84 4.9 SPRAIN/STRAIN KNEE/LEG 08/09/2013 LIVE DIAZ APRN T 84 4.9 SPRAIN/STRAIN KNEE/LEG 08/09/2013 LIVE DIAZ APRN T 84 4.9 SPRAIN/STRAIN KNEE/LEG 08/09/2013 LIVE DIAZ APRN T 84 4.9 SPRAIN/STRAIN KNEE/LEG 08/09/2013 LIVE DIAZ APRN T 84 4.9 SPRAIN/STRAIN KNEE/LEG 08/09/2013 LIVE DIAZ APRN T 84 4.9 SPRAIN/STRAIN KNEE/LEG 08/09/2013 PHILLY KENNY DO K 844.9 SPRAIN/STRAIN KNEE/LEG 08/09/2013 LIVE DIAZ APRN T 84 4.9 SPRAIN/STRAIN KNEE/LEG 08/09/2013 ROBLES RODRIGUEZ TAE A 84 4.9 SPRAIN/STRAIN KNEE/LEG 08/09/2013 PHILLY KENNY DO K 844.9 SPRAIN/STRAIN KNEE/LEG 08/09/2013 KENNY DO, PHILLY K 844.9 SPRAIN/STRAIN KNEE/LEG 08/09/2013 WHITE DDS, CHIO D 84 4.9 SPRAIN/STRAIN KNEE/LEG 08/09/2013 WHITE DDS, CHIO D 84 4.9 SPRAIN/STRAIN KNEE/LEG 08/09/2013 WHITE DDS, KELLEY Watkins 84 4.9 SPRAIN/STRAIN KNEE/LEG 10/01/2013 LM MALHOTRA, LEANDRA Castaneda Ot 682.9 CELLULITIS NOS 10/10/2013 LIVE DIAZ APRN 84 7.0 SPRAIN/STRAIN NECK 10/10/2013 LIVE DIAZ APRN E987.0 FALLING FROM RESIDENTIAL PREMISES UNDETE RMINED WHETHER ACCIDENTALLY OR PURPOSELY INFLICTED 10/10/2013 LIVE DIAZ APRN 84 7.0 SPRAIN/STRAIN NECK 10/10/2013 LIVE DIAZ APRN E987.0 FALLING FROM RESIDENTIAL PREMISES UNDETE RMINED WHETHER ACCIDENTALLY OR PURPOSELY INFLICTED 10/10/2013 LIVE DIAZ APRN 84 7.0 SPRAIN/STRAIN NECK 10/10/2013 LIVE DIAZ APRN E987.0 FALLING FROM RESIDENTIAL PREMISES UNDETE RMINED WHETHER ACCIDENTALLY OR PURPOSELY INFLICTED 10/10/2013 KENNY DO, PHILLY K 847.0 SPRAIN/STRAIN NECK 10/10/2013 KENNY DO, PHILLY K E987.0 FALLING FROM RESIDENTIAL PREMISES UNDETERMINED WHETHER ACCIDENTALLY OR PURPOSELY INFLICTED 10/10/2013 LIVE DIAZ APRN 84 7.0 SPRAIN/STRAIN NECK 10/10/2013 LIVE DIAZ APRN E987.0 FALLING FROM RESIDENTIAL PREMISES UNDETE RMINED WHETHER ACCIDENTALLY OR PURPOSELY INFLICTED 10/10/2013 LIVE DIAZ APRN 84 7.0 SPRAIN/STRAIN NECK 10/10/2013 LIVE DIAZ APRN E987.0 FALLING FROM RESIDENTIAL PREMISES UNDETE RMINED WHETHER ACCIDENTALLY OR PURPOSELY INFLICTED 10/10/2013 LIVE DIAZ APRN 84 7.0 SPRAIN/STRAIN NECK 10/10/2013 LIVE DIAZ APRN E987.0 FALLING FROM RESIDENTIAL PREMISES UNDETE RMINED WHETHER ACCIDENTALLY OR PURPOSELY INFLICTED 10/10/2013 LIVE DIAZ APRN 84 7.0 SPRAIN/STRAIN NECK 10/10/2013 JOE RODRIGUEZ LIVE T E987.0 FALLING FROM RESIDENTIAL PREMISES UNDETE RMINED WHETHER ACCIDENTALLY OR PURPOSELY INFLICTED 10/10/2013 LIVE DIAZ APRN T 84 7.0 SPRAIN/STRAIN NECK 10/10/2013 JOE BETANCURN LIVE T E987.0 FALLING FROM RESIDENTIAL PREMISES UNDETE RMINED WHETHER ACCIDENTALLY OR PURPOSELY INFLICTED 10/10/2013 LIVE DIAZ APRN T 84 7.0 SPRAIN/STRAIN NECK 10/10/2013 LIVE DIAZ APRN E987.0 FALLING FROM RESIDENTIAL PREMISES UNDETE RMINED WHETHER ACCIDENTALLY OR PURPOSELY INFLICTED 10/10/2013 KENNY DO, PHILLY K 847.0 SPRAIN/STRAIN NECK 10/10/2013 KENNY DO, PHILLY K E987.0 FALLING FROM RESIDENTIAL PREMISES UNDETERMINED WHETHER ACCIDENTALLY OR PURPOSELY INFLICTED 10/10/2013 LIVE DIAZ APRN T 84 7.0 SPRAIN/STRAIN NECK 10/10/2013 JOE FIRE 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LIVE Mejía E987.0 FALLING FROM RESIDENTIAL PREMISES UNDETE RMINED WHETHER ACCIDENTALLY OR PURPOSELY INFLICTED 10/10/2013 ROBLES APRN, TAE A 84 7.0 SPRAIN/STRAIN NECK 10/10/2013 ROBLESROSALINDA RODRIGUEZ, TAE A E987.0 FALLING FROM RESIDENTIAL PREMISES UNDETE RMINED WHETHER ACCIDENTALLY OR PURPOSELY INFLICTED 10/10/2013 KENNY DO, PHILLY K 847.0 SPRAIN/STRAIN NECK 10/10/2013 KENNY DO, PHILLY K E987.0 FALLING FROM RESIDENTIAL PREMISES UNDETERMINED WHETHER ACCIDENTALLY OR PURPOSELY INFLICTED 10/10/2013 KENNY DO, PHILLY K 847.0 SPRAIN/STRAIN NECK 10/10/2013 KENNY DO, PHILLY K E987.0 FALLING FROM RESIDENTIAL PREMISES UNDETERMINED WHETHER ACCIDENTALLY OR PURPOSELY INFLICTED 10/10/2013 WHITE DDS, CHIO D 84 7.0 SPRAIN/STRAIN NECK 10/10/2013 WHITE DDS, CHIO D E987.0 FALLING FROM RESIDENTIAL PREMISES UNDETE RMINED WHETHER ACCIDENTALLY OR PURPOSELY INFLICTED 10/10/2013 WHITE DDS, CHIO D 84 7.0 SPRAIN/STRAIN NECK 10/10/2013 WHITE DDS, CHIO D E987.0 FALLING FROM RESIDENTIAL PREMISES UNDETE RMINED WHETHER ACCIDENTALLY OR PURPOSELY INFLICTED 10/10/2013 WHITE DDKELLEY Castaneda J 84 7.0 SPRAIN/STRAIN NECK 10/10/2013 WHITE KELLEY ELISE J E987.0 FALLING FROM RESIDENTIAL PREMISES UNDETE RMINED WHETHER ACCIDENTALLY OR PURPOSELY INFLICTED 10/27/2013 LIVE DIAZ APRN 72 4.4 THORACIC OR LUMBOSACRAL NEURITIS OR RADICULITIS UNSPECIFIED 10/27/2013 MARK KENNY DOA K 724.4 THORACIC OR LUMBOSACRAL NEURITIS OR RADICULITIS UNSPECIFIED 10/27/2013 LIVE DIAZ APRN 72 4.4 THORACIC OR LUMBOSACRAL NEURITIS OR RADICULITIS UNSPECIFIED 10/27/2013 LIVE DIAZ APRN 72 4.4 THORACIC OR LUMBOSACRAL NEURITIS OR RADICULITIS UNSPECIFIED 10/27/2013 LIVE DIAZ APRN T 72 4.4 THORACIC OR LUMBOSACRAL NEURITIS OR RADICULITIS UNSPECIFIED 10/27/2013 LIVE DIAZ APRN 72 4.4 THORACIC OR LUMBOSACRAL NEURITIS OR RADICULITIS UNSPECIFIED 10/27/2013 LIVE DIAZ APRN T 72 4.4 THORACIC OR LUMBOSACRAL NEURITIS OR RADICULITIS UNSPECIFIED 10/27/2013 LIVE DIAZ APRN T 72 4.4 THORACIC OR LUMBOSACRAL NEURITIS OR RADICULITIS UNSPECIFIED 10/27/2013 MARK KENNY DOA K 724.4 THORACIC OR LUMBOSACRAL NEURITIS OR RADICULITIS UNSPECIFIED 10/27/2013 LIVE DIAZ APRN T 72 4.4 THORACIC OR LUMBOSACRAL NEURITIS OR RADICULITIS UNSPECIFIED 10/27/2013 TAE ARBOLEDA APRN 72 4.4 THORACIC OR LUMBOSACRAL NEURITIS OR RADICULITIS UNSPECIFIED 10/27/2013 KENNY DO, PHILLY K 724.4 THORACIC OR LUMBOSACRAL NEURITIS OR RADICULITIS UNSPECIFIED 10/27/2013 KENNY DO, PHILLY K 724.4 THORACIC OR LUMBOSACRAL NEURITIS OR RADICULITIS UNSPECIFIED 10/27/2013 REZA COOPERSCHIO D 72 4.4 THORACIC OR LUMBOSACRAL NEURITIS OR RADICULITIS UNSPECIFIED 10/27/2013 REZA DDS, CHIO D 72 4.4 THORACIC OR LUMBOSACRAL NEURITIS OR RADICULITIS UNSPECIFIED 10/27/2013 WHITE DDS, KELLEY J 72 4.4 THORACIC OR LUMBOSACRAL NEURITIS OR RADICULITIS UNSPECIFIED 11/28/2013 LIVE DIAZ APRN T 719.41 PAIN- SHOULDER 11/28/2013 LIVE DIAZ APRN T 78 2.1 RASH 11/28/2013 LIVE DIAZ APRN T 719.41 PAIN- SHOULDER 11/28/2013 LIVE DIAZ APRN T 78 2.1 RASH 11/28/2013 LIVE DIAZ APRN T 719.41 PAIN- SHOULDER 11/28/2013 LIVE DIAZ APRN T 78 2.1 RASH 11/28/2013 LIVE DIAZ APRN T 719.41 PAIN- SHOULDER 11/28/2013 LIVE DIAZ APRN T 78 2.1 RASH 11/28/2013 LIVE DIAZ APRN T 719.41 PAIN- SHOULDER 11/28/2013 LIVE DIAZ APRN T 78 2.1 RASH 11/28/2013 KENNY DO, PHILLY K 719.41 PAIN- SHOULDER 11/28/2013 KENNY DO, PHILLY K 782.1 RASH 11/28/2013 LIVE DIAZ APRN T 719.41 PAIN- SHOULDER 11/28/2013 LIVE DIAZ APRN T 78 2.1 RASH 11/28/2013 ROBLESAlfonzo RODRIGUEZ TAE A 719.41 PAIN- SHOULDER 11/28/2013 ROBLESAlfonzo RODRIGUEZ TAE A 78 2.1 RASH 11/28/2013 KENNY DO, PHILLY K 719.41 PAIN- SHOULDER 11/28/2013 KENNY DO, PHILLY K 782.1 RASH 11/28/2013 KENNY DO, PHILLY K 719.41 PAIN- SHOULDER 11/28/2013 KENNY DO, PHILLY K 782.1 RASH 11/28/2013 WHITE DDS, CHIO D 719.41 PAIN- SHOULDER 11/28/2013 WHITE DDS, CHIO D 78 2.1 RASH 11/28/2013 WHITE DDS, CHIO D 719.41 PAIN- SHOULDER 11/28/2013 WHITE DDS, CHIO D 78 2.1 RASH 11/28/2013 WHITE DDS, KELLEY J 719.41 PAIN- SHOULDER 11/28/2013 WHITE DDS, KELLEY J 78 2.1 RASH 02/02/2014 LIVE DIAZ APRN 719.45 PAIN- HIP 02/02/2014 LIVE DIAZ APRN 719.45 PAIN- HIP 02/02/2014 KENNY DO, PHILLY K 719.45 PAIN- HIP 02/02/2014 LIVE DIAZ APRN 719.45 PAIN- HIP 02/02/2014 TAE ARBOLEDA APRN A 719.45 PAIN- HIP 02/02/2014 KENNY DO, PHILLY K 719.45 PAIN- HIP 02/02/2014 KENNY DO, PHILLY K 719.45 PAIN- HIP 02/02/2014 WHITE DDS, CHIO D 719.45 PAIN- HIP 02/02/2014 WHITE DDS, CHIO D 719.45 PAIN- HIP 02/02/2014 WHITE DDS, KELLEY J 719.45 PAIN- HIP 03/21/2014 LIVE DIAZ APRN 72 3.1 CERVICALGIA 03/21/2014 KENNY DO, PHILLY K 723.1 CERVICALGIA 03/21/2014 LIVE DIAZ APRN 72 3.1 CERVICALGIA 03/21/2014 TAE ARBOLEDA APRN A 72 3.1 CERVICALGIA 03/21/2014 KENNY DO, PHILLY K 723.1 CERVICALGIA 03/21/2014 KENNY DO, PHILLY K 723.1 CERVICALGIA 03/21/2014 WHITE DDS, CHIO D 72 3.1 CERVICALGIA 03/21/2014 WHITE DDS, CHIO D 72 3.1 CERVICALGIA 03/21/2014 WHITE DDS, KELLEY J 72 3.1 CERVICALGIA 03/26/2014 MIRELA HUANG APRN Ot 272 .0 PURE HYPERCHOLESTEROLEM 03/26/2014 MIRELA HUANG APRN Ot 305 .1 TOBACCO USE DISORDER 03/26/2014 MIRELA HUANG APRN Ot 311 DEPRESSIVE DISORDER NEC 03/26/2014 MIRELA HUANG APRN Ot 401 .9 HYPERTENSION NOS 03/26/2014 MIRELA HUANG APRN Ot 723 .1 CERVICALGIA 03/26/2014 MIRELA HUANG APRN Ot 723 .4 BRACHIAL NEURITIS NOS 03/26/2014 MIRELA HUANG APRN Ot 782 .3 EDEMA 04/30/2014 TAE ARBOLEDA APRN V1 6.0 FAMILY HX COLON CANCER 04/30/2014 ROBLES FIRE 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, TAE A V65.42 COUNSELING - SMOKING CESSATION 04/30/2014 ROBLES BETANCURN, TAE A V76.10 BREAST CANCER SCREENING 04/30/2014 KENNY , PHILLY K V16.0 FAMILY HX COLON CANCER 04/30/2014 KENNY DO, PHILLY K V65.42 COUNSELING - SMOKING CESSATION 04/30/2014 KENNY , PHILLY K V76.10 BREAST CANCER SCREENING 04/30/2014 KENNY , PIHLLY K V16.0 FAMILY HX COLON CANCER 04/30/2014 KENNY , PHILLY K V65.42 COUNSELING - SMOKING CESSATION 04/30/2014 EKNNY DO, PHILLY K V76.10 BREAST CANCER SCREENING 04/30/2014 WHITE DDS, CHIO D V1 6.0 FAMILY HX COLON CANCER 04/30/2014 WHITE DDSCHIO D V65.42 COUNSELING - SMOKING CESSATION 04/30/2014 WHITE DDS CHIO D V76.10 BREAST CANCER SCREENING 04/30/2014 WHITE DDS CHIO D V1 6.0 FAMILY HX COLON CANCER 04/30/2014 WHITE DDS CHIO D V65.42 COUNSELING - SMOKING CESSATION 04/30/2014 WHITE DDS, CHIO D V76.10 BREAST CANCER SCREENING 04/30/2014 WHITE DDSKELLEY J V1 6.0 FAMILY HX COLON CANCER 04/30/2014 WHITE ALLISONSKELLEY V65.42 COUNSELING - SMOKING CESSATION 04/30/2014 WHITE ALLISONSKELLEY V76.10 BREAST CANCER SCREENING 05/04/2014 EFRAÍN CREWS PHILLY K 466.0 BRONCHITIS, ACUTE 05/04/2014 KENNY DO PHILLY K 709.9 UNSPECIFIED DISORDER OF SKIN AND SUBCUTANEOUS TISSUE 05/04/2014 EFRAÍN CREWS PHILLY K 466.0 BRONCHITIS, ACUTE 05/04/2014 KENNY DO, PHILLY K 709.9 UNSPECIFIED DISORDER OF SKIN AND SUBCUTANEOUS TISSUE 05/04/2014 WHITE DDS, CHIO D 46 6.0 BRONCHITIS, ACUTE 05/04/2014 WHITE DDS, CHIO D 70 9.9 UNSPECIFIED DISORDER OF SKIN AND SUBCUTANEOUS TISSUE 05/04/2014 WHITE DDS, CHIO D 46 6.0 BRONCHITIS, ACUTE 05/04/2014 WHITE DDS, CHIO D 70 9.9 UNSPECIFIED DISORDER OF SKIN AND SUBCUTANEOUS TISSUE 05/04/2014 WHITE DDSSPENCERON J 46 6.0 BRONCHITIS, ACUTE 05/04/2014 WHITE DDSKELLEY J 70 9.9 UNSPECIFIED DISORDER OF SKIN AND SUBCUTANEOUS TISSUE 01/14/2018 LIVE DIAZP Ot 724.4 LUMBOSACRAL NEURITIS NOS 01/14/2018 LIVE DIAZP Ot 719.45 JOINT PAIN-PELVIS 01/14/2018 LIVE DIAZ LAMP SHADE ASSEMBLER Ot 724.4 LUMBOSACRAL NEURITIS NOS 01/14/2018 LIVE DIAZP Ot 733.90 BONE CARTILAGE DIS NOS 01/14/2018 LIVE DIAZ LAMP SHADE ASSEMBLER Ot 722.0 CERVICAL DISC DISPLACMNT 01/14/2018 LIVE DIAZP Ot 793.7 NOSP (ABN) FINDINGS ON RADIOLOGICAL OT 01/14/2018 TAE ARBOLEDA FIRE 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 Ot V16.0 FAMILY HX-GI MALIGNANCY 01/14/2018 TAE ARBOLEDA FIRE 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 Ot V65.42 COUNSELING ON SUBSTANCE USE AND ABUSE 01/14/2018 TAE ARBOLEDA FIRE 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 Ot V72.31 ROUTINE GYNECOLOGICAL EXAMINATION 01/14/2018 TAE ARBOLEDA FIRE 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 Ot V76.12 OTH SCREEN MAMMO-MALIGN NEOPLASM OF ASHLEE 01/14/2018 TAE ARBOLEDA FIRE 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 Ot V76.12 OTH SCREEN MAMMO-MALIGN NEOPLASM OF ASHLEE 01/17/2018 KORTNEY DOYLE DO Ot F32.9 MAJOR DEPRESSIVE DISORDER, SINGLE EPISOD 01/17/2018 KORTNEY DOYLE DO Ot G89.4 CHRONIC PAIN SYNDROME 01/17/2018 KORTNEY DOYLE DO Ot I10 ESSENTIAL (PRIMARY) HYPERTENSION 01/17/2018 KORTNEY DOYLE DO Ot M54.16 RADICULOPATHY, LUMBAR REGION 01/17/2018 KORTNEY DOYLE DO Ot Z79.899 OTHER REGISTERED TRAVEL NURSE (CURRENT) DRUG THERAPY 01/17/2018 LIVE DIAZ Ot 724.4 LUMBOSACRAL NEURITIS NOS 01/17/2018 LIVE DIAZ Ot 719.45 JOINT PAIN-PELVIS 01/17/2018 LIVE DIAZ Ot 724.4 LUMBOSACRAL NEURITIS NOS 01/17/2018 LIVE DIAZ Ot 733.90 BONE CARTILAGE DIS NOS 01/17/2018 LIVE DIAZP Ot 722.0 CERVICAL DISC DISPLACMNT 01/17/2018 LIVE DIAZ LAMP SHADE ASSEMBLER Ot 793.7 NOSP (ABN) FINDINGS ON RADIOLOGICAL OT 01/17/2018 TAE ARBOLEDA FIRE 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 Ot V16.0 FAMILY HX-GI MALIGNANCY 01/17/2018 TAE ARBOLEDA FIRE 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 Ot V65.42 COUNSELING ON SUBSTANCE USE AND ABUSE 01/17/2018 TAE ARBOLEDA FIRE 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 Ot V72.31 ROUTINE GYNECOLOGICAL EXAMINATION 01/17/2018 TAE ARBOLEDA FIRE 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 Ot V76.12 OTH SCREEN MAMMO-MALIGN NEOPLASM OF ASHLEE 01/17/2018 TAE ARBOLEDA FIRE 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 Ot V76.12 OTH SCREEN MAMMO-MALIGN NEOPLASM OF ASHLEE 01/18/2018 KORTNEY DOYLE DO Ot F32.9 MAJOR DEPRESSIVE DISORDER, SINGLE EPISOD 01/18/2018 KORTNEY DOYLE DO Ot G89.4 CHRONIC PAIN SYNDROME 01/18/2018 KORTNEY DOYLE DO Ot I10 ESSENTIAL (PRIMARY) HYPERTENSION 01/18/2018 KORTNEY DOYLE DO Ot M54.16 RADICULOPATHY, LUMBAR REGION 01/18/2018 KORTNEY DOYLE DO Ot Z79.899 OTHER RETIREMENT (CURRENT) DRUG THERAPY 04/12/2018 KORTNEY DOYLE DO Ot M54.16 RADICULOPATHY, LUMBAR REGION 05/03/2018 KORTNEY DOYLE DO Ot M54.16 RADICULOPATHY, LUMBAR REGION 05/10/2018 KORTNEY DOYLE DO, Ot M54.16 RADICULOPATHY, LUMBAR REGION 07/09/2018 LIVE DIAZ LAMP SHADE ASSEMBLER Ot 724.4 LUMBOSACRAL NEURITIS NOS 07/09/2018 LIVE DIAZ Ot 719.45 JOINT PAIN-PELVIS 07/09/2018 LIVE DIAZ LAMP SHADE ASSEMBLER Ot 724.4 LUMBOSACRAL NEURITIS NOS 07/09/2018 LIVE DIAZ LAMP SHADE ASSEMBLER Ot 733.90 BONE CARTILAGE DIS NOS 07/09/2018 LIVE DIAZ LAMP SHADE ASSEMBLER Ot 722.0 CERVICAL DISC DISPLACMNT 07/09/2018 LIVE DIAZP Ot 793.7 NOSP (ABN) FINDINGS ON RADIOLOGICAL OT 07/09/2018 TAE ARBOLEDA FIRE 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 Ot V16.0 FAMILY HX-GI MALIGNANCY 07/09/2018 ROBLES, TAEAIDEN Cano APRN Ot V65.42 COUNSELING ON SUBSTANCE USE AND ABUSE 07/09/2018 TAE ARBOLEDA APRN Ot V72.31 ROUTINE GYNECOLOGICAL EXAMINATION 07/09/2018 TAE ARBOLEDA APRN Ot V76.12 OTH SCREEN MAMMO-MALIGN NEOPLASM OF ASHLEE 07/09/2018 TAE ARBOLEDA APRN Ot V76.12 OTH SCREEN MAMMO-MALIGN NEOPLASM OF ASHLEE 07/09/2018 JOSE ALBERTOKERI CREWS KORTNEY Sood Ot M54.16 RADICULOPATHY, LUMBAR REGION 07/11/2018 RINKU MAURICIO MD Ot E66.09 OTHER OBESITY DUE TO EXCESS CALORIES 07/11/2018 RINKU MAURICIO MD Ot F17.210 NICOTINE DEPENDENCE, CIGARETTES, UNCOMPL 07/11/2018 RINKU MAURICIO MD Ot F32 .9 MAJOR DEPRESSIVE DISORDER, SINGLE EPISOD 07/11/2018 RINKU MAURICIO MD Ot J20 .9 ACUTE BRONCHITIS, UNSPECIFIED 07/11/2018 RINKU MAURICIO MD Ot J44 .0 CHRONIC OBSTRUCTIVE PULMON DISEASE W ACU 07/11/2018 RINKU MAURICIO MD Ot J44 .1 CHRONIC OBSTRUCTIVE PULMONARY DISEASE W 07/11/2018 RINKU MAURICIO MD Ot Z68.38 BODY MASS INDEX (BMI) 38.0-38.9, ADULT 01/11/2019 LIVE DIAZ Ot 724.4 LUMBOSACRAL NEURITIS NOS 01/11/2019 LIVE DIAZ Ot 719.45 JOINT PAIN-PELVIS 01/11/2019 LIVE DIAZ Ot 724.4 LUMBOSACRAL NEURITIS NOS 01/11/2019 LIVE DIAZP Ot 733.90 BONE CARTILAGE DIS NOS 01/11/2019 LIVE DIAZ Ot 722.0 CERVICAL DISC DISPLACMNT 01/11/2019 LIVE DIAZP Ot 793.7 NOSP (ABN) FINDINGS ON RADIOLOGICAL OT 01/11/2019 TAE ARBOLEDA APRN Ot V16.0 FAMILY HX-GI MALIGNANCY 01/11/2019 TAE ARBOLEDA APRN Ot V65.42 COUNSELING ON SUBSTANCE USE AND ABUSE 01/11/2019 ROBLES, TAE A FIRE 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 Ot V72.31 ROUTINE GYNECOLOGICAL EXAMINATION 01/11/2019 TAE ARBOLEAD FIRE 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 Ot V76.12 OTH SCREEN MAMMO-MALIGN NEOPLASM OF ASHLEE 01/11/2019 TAE ARBOLEDA FIRE 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 Ot V76.12 OTH SCREEN MAMMO-MALIGN NEOPLASM OF ASHLEE 01/11/2019 KORTNEY DOYLE DO Barrie Ot M54.16 RADICULOPATHY, LUMBAR REGION 01/11/2019 SOHAIL MORALES MD Ot F32.9 MAJOR DEPRESSIVE DISORDER, SINGLE EPISOD 01/11/2019 SOHAIL MORALES MD, Ot M54.16 RADICULOPATHY, LUMBAR REGION 01/11/2019 SOHAIL MORALES MD, Ot M54.5 LOW BACK PAIN 01/11/2019 SOHAIL MORALES MD Ot Z79.51 REGISTERED TRAVEL NURSE (CURRENT) USE OF INHALED STERO 01/11/2019 SOHAIL MORALES MD Ot Z79.52 RETIREMENT (CURRENT) USE OF SYSTEMIC STER 01/11/2019 SOHAIL [...] PAIN 01/14/2019 SOHAIL MORALES MD Ot Z79.51 RETIREMENT (CURRENT) USE OF INHALED STERO 01/14/2019 SOHAIL MORALES MD Ot Z79.52 RETIREMENT (CURRENT) USE OF SYSTEMIC STER 01/14/2019 SOHAIL MORALES MD Ot Z80.0 FAMILY HISTORY OF MALIGNANT NEOPLASM OF 01/14/2019 SOHAIL MORALES MD Ot Z82.49 FAMILY HX OF ISCHEM HEART DIS AND OTH DI 01/14/2019 SOHAIL MORALES MD Ot Z87.01 PERSONAL HISTORY OF PNEUMONIA (RECURRENT 02/06/2019 LIVE DIAZ LAMP SHADE ASSEMBLER Ot 724.4 LUMBOSACRAL NEURITIS NOS 02/06/2019 LIVE DIAZ LAMP SHADE ASSEMBLER Ot 719.45 JOINT PAIN-PELVIS 02/06/2019 LIVE DIAZ LAMP SHADE ASSEMBLER Ot 724.4 LUMBOSACRAL NEURITIS NOS 02/06/2019 LIVE DIAZ LAMP SHADE ASSEMBLER Ot 733.90 BONE CARTILAGE DIS NOS 02/06/2019 LIVE DIAZ LAMP SHADE ASSEMBLER Ot 722.0 CERVICAL DISC DISPLACMNT 02/06/2019 LIVE DIAZ LAMP SHADE ASSEMBLER Ot 793.7 NOSP (ABN) FINDINGS ON RADIOLOGICAL OT 02/06/2019 TAE ARBOLEDA APRN Ot V16.0 FAMILY HX-GI MALIGNANCY 02/06/2019 TAE ARBOLEDA FIRE 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 Ot V65.42 COUNSELING ON SUBSTANCE USE AND ABUSE 02/06/2019 TAE ARBOLEDA FIRE 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 Ot V72.31 ROUTINE GYNECOLOGICAL EXAMINATION 02/06/2019 TAE ARBOLEDA FIRE 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 Ot V76.12 OTH SCREEN MAMMO-MALIGN NEOPLASM OF ASHLEE 02/06/2019 TAE ARBOLEDA APRN Ot V76.12 OTH SCREEN MAMMO-MALIGN NEOPLASM OF ASHLEE 02/06/2019 KORTNEY DOYLE DO Ot M54.16 RADICULOPATHY, LUMBAR REGION 02/06/2019 LIVE DILL DO, Ot F32.9 MAJOR DEPRESSIVE DISORDER, SINGLE EPISOD 02/06/2019 LIVE DILL DO Ot G89.29 OTHER CHRONIC PAIN 02/06/2019 LIVE DILL DO, Ot M54.42 LUMBAGO WITH SCIATICA, LEFT SIDE 02/06/2019 LIVE DILL DO, Ot M54.5 LOW BACK PAIN 02/06/2019 LIVE DILL DO Ot Z79.52 REGISTERED TRAVEL NURSE (CURRENT) USE OF SYSTEMIC STER 02/06/2019 LIVE DILL DO, Ot Z80.0 FAMILY HISTORY OF MALIGNANT NEOPLASM OF 02/06/2019 LIVE DILL DO, Ot Z82.49 FAMILY HX OF ISCHEM HEART DIS AND OTH DI 02/06/2019 LIVE DILL DO, Ot Z87.01 PERSONAL HISTORY OF PNEUMONIA (RECURRENT 02/06/2019 LIVE DILL DO Ot Z98.890 OTHER SPECIFIED POSTPROCEDURAL STATES 02/10/2019 LIVE DILL DO, Ot F32.9 MAJOR DEPRESSIVE DISORDER, SINGLE EPISOD 02/10/2019 LIVE DILL DO Ot G89.29 OTHER CHRONIC PAIN 02/10/2019 LIVE DILL DO, Ot M54.42 LUMBAGO WITH SCIATICA, LEFT SIDE 02/10/2019 LIVE DILL DO, Ot M54.5 LOW BACK PAIN 02/10/2019 LIVE DILL DO, Ot Z79.52 RETIREMENT (CURRENT) USE OF SYSTEMIC STER 02/10/2019 LIVE DILL DO Ot Z80.0 FAMILY HISTORY OF MALIGNANT NEOPLASM OF 02/10/2019 LIVE DILL DO, Ot Z82.49 FAMILY HX OF ISCHEM HEART DIS AND OTH DI 02/10/2019 LIVE DILL DO Ot Z87.01 PERSONAL HISTORY OF PNEUMONIA (RECURRENT 02/10/2019 LIVE DILL DO, Ot Z98.890 OTHER SPECIFIED POSTPROCEDURAL STATES 03/04/2019 LIVE DILL DO, Ot F17.210 NICOTINE DEPENDENCE, CIGARETTES, UNCOMPL 03/04/2019 LIVE DILL DO Ot F32.9 MAJOR DEPRESSIVE DISORDER, SINGLE EPISOD 03/04/2019 LIVE DILL DO Ot I1 0 ESSENTIAL (PRIMARY) HYPERTENSION 03/04/2019 LIVE DILL DO, Ot M54.42 LUMBAGO WITH SCIATICA, LEFT SIDE 03/04/2019 LIVE DILL DO, Ot M79.605 PAIN IN LEFT LEG 03/04/2019 LIVE DILL DO, Ot Z79.52 REGISTERED TRAVEL NURSE (CURRENT) USE OF SYSTEMIC STER 03/04/2019 LIVE DILL DO, Ot Z80.0 FAMILY HISTORY OF MALIGNANT NEOPLASM OF 03/04/2019 LIVE DILL DO, Ot Z82.49 FAMILY HX OF ISCHEM HEART DIS AND OTH DI 03/04/2019 LIVE DILL DO, Ot Z87.01 PERSONAL HISTORY OF PNEUMONIA (RECURRENT 03/04/2019 LIVE DILL DO Ot Z98.1 ARTHRODESIS STATUS 03/06/2019 LIVE DILL DO Ot F17.210 NICOTINE DEPENDENCE, CIGARETTES, UNCOMPL 03/06/2019 LIVE DILL DO Ot F32.9 MAJOR DEPRESSIVE DISORDER, SINGLE EPISOD 03/06/2019 LIVE DILL DO Ot I1 0 ESSENTIAL (PRIMARY) HYPERTENSION 03/06/2019 LIVE DILL DO, Ot M54.42 LUMBAGO WITH SCIATICA, LEFT SIDE 03/06/2019 LIVE DILL DO Ot M79.605 PAIN IN LEFT LEG 03/06/2019 FUENTES LIVE CREWS Ot Z79.52 RETIREMENT (CURRENT) USE OF SYSTEMIC STER 03/06/2019 LIVE DILL DO Ot Z80.0 FAMILY HISTORY OF MALIGNANT NEOPLASM OF 03/06/2019 FUENTES DOLIVE Ot Z82.49 FAMILY HX OF ISCHEM HEART DIS AND OTH DI 03/06/2019 LIVE DILL DO Ot Z87.01 PERSONAL HISTORY OF PNEUMONIA (RECURRENT 03/06/2019 LIVE DILL DO Ot Z98.1 ARTHRODESIS STATUS 03/10/2019 LIVE DILL DO Ot F17.210 NICOTINE DEPENDENCE, CIGARETTES, UNCOMPL 03/10/2019 LIVE DILL DO, Ot F32.9 MAJOR DEPRESSIVE DISORDER, SINGLE EPISOD 03/10/2019 LIVE DILL DO, Ot I1 0 ESSENTIAL (PRIMARY) HYPERTENSION 03/10/2019 FUENTES LIVE CREWS Ot M54.42 LUMBAGO WITH SCIATICA, LEFT SIDE 03/10/2019 LIVE DILL DO, Ot M79.605 PAIN IN LEFT LEG 03/10/2019 LIVE DILL DO, Ot Z79.52 REGISTERED TRAVEL NURSE (CURRENT) USE OF SYSTEMIC STER 03/10/2019 LIVE DILL DO, Ot Z80.0 FAMILY HISTORY OF MALIGNANT NEOPLASM OF 03/10/2019 LIVE DILL DO, Ot Z82.49 FAMILY HX OF ISCHEM HEART DIS AND OTH DI 03/10/2019 LIVE DILL DO, Ot Z87.01 PERSONAL HISTORY OF PNEUMONIA (RECURRENT 03/10/2019 LIVE DILL DO Ot Z98.1 ARTHRODESIS STATUS 08/08/2019 CHRIS HOUSTON APRN Ot J98.4 OTHER DISORDERS OF LUNG 08/11/2019 SHERIE MALHOTRA, LOIS Ponce Ot I34 .0 NONRHEUMATIC MITRAL (VALVE) INSUFFICIENC 08/11/2019 LOIS REHMAN MD Ot I51 .7 CARDIOMEGALY 08/12/2019 LOIS REHMAN MD Ot I34 .0 NONRHEUMATIC MITRAL (VALVE) INSUFFICIENC 08/12/2019 LOIS REHMAN MD Ot I51 .7 CARDIOMEGALY 08/19/2019 CHRIS HOUSTON APRN Ot G47.10 HYPERSOMNIA, UNSPECIFIED 08/20/2019 CHRIS HOUSTON FIRE 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 Ot G47.10 HYPERSOMNIA, UNSPECIFIED 08/21/2019 CHRIS HOUSTON FIRE 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 Ot G47.10 HYPERSOMNIA, UNSPECIFIED 08/21/2019 CHRIS HOUSTON FIRE 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 Ot G47.33 OBSTRUCTIVE SLEEP APNEA (ADULT) (PEDIATR 08/26/2019 CHRIS HOUSTON FIRE 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 Ot J98.4 OTHER DISORDERS OF LUNG 08/27/2019 SHERIE MALHOTRA, LOIS Ponce Ot I34 .0 NONRHEUMATIC MITRAL (VALVE) INSUFFICIENC 08/27/2019 SHERIE MALHOTRA, LOIS Ponce Ot I51 .7 CARDIOMEGALY 08/28/2019 ESTEPHANIA SALAMANCA MD Ot M54.5 LOW BACK PAIN 08/28/2019 ESTEPHANIA SALAMANCA MD Ot W19.XXXD UNSPECIFIED FALL, SUBSEQUENT ENCOUNTER 08/28/2019 ESTEPHANIA SALAMANCA MD Ot Z98.1 ARTHRODESIS STATUS 09/09/2019 RIVAS MAYS MD Ot M54.5 LOW BACK PAIN 09/10/2019 CHRIS HOUSTON FIRE 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 Ot G47.10 HYPERSOMNIA, UNSPECIFIED 09/10/2019 CHRIS HOUSTON FIRE 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 Ot G47.33 OBSTRUCTIVE SLEEP APNEA (ADULT) (PEDIATR 09/11/2019 RIVAS MAYS MD Ot M54.5 LOW BACK PAIN 09/23/2019 ESTEPHANIA SALAMANCA MD Ot M54.5 LOW BACK PAIN 09/23/2019 ESTEPHANIA SALAMANCA MD Ot W19.XXXD UNSPECIFIED FALL, SUBSEQUENT ENCOUNTER 09/23/2019 ESTEPHANIA SALAMANCA MD Ot Z98.1 ARTHRODESIS STATUS 10/27/2019 JOHANNA MELCHOR MD Ot Z78 .0 ASYMPTOMATIC MENOPAUSAL STATE 11/03/2019 JOHANNA MELCHOR MD Ot Z78 .0 ASYMPTOMATIC MENOPAUSAL STATE 11/10/2019 JOHANNA MELCHOR MD Ot M85.89 OT DISRD OF BONE DENSITY AND STRUCTURE, 11/10/2019 JOHANNA MELCHOR MD, Ot Z78 .0 ASYMPTOMATIC MENOPAUSAL STATE 11/10/2019 JOHANNA MELCHOR MD Ot Z87.81 PERSONAL HISTORY OF (HEALED) TRAUMATIC F 11/10/2019 JOHANNA MELCHOR MD, Ot Z98 .1 ARTHRODESIS STATUS 11/25/2019 JOHANNA MELCHOR MD Ot M85.89 OTH DISRD OF BONE DENSITY AND STRUCTURE, 11/25/2019 JOHANNA MELCHOR MD Ot Z78 .0 ASYMPTOMATIC MENOPAUSAL STATE 11/25/2019 JOHANNA MELCHOR MD Ot Z87.81 PERSONAL HISTORY OF (HEALED) TRAUMATIC F 11/25/2019 JOHANNA MELCHOR MD Ot Z98 .1 ARTHRODESIS STATUS 12/11/2019 JOHANNA MELCHOR MD Ot M85.89 OTH DISRD OF BONE DENSITY AND STRUCTURE, 12/11/2019 JOHANNA MELCHOR MD Ot Z78 .0 ASYMPTOMATIC MENOPAUSAL STATE 12/11/2019 JOHANNA MELCHOR MD Ot Z87.81 PERSONAL HISTORY OF (HEALED) TRAUMATIC F 12/11/2019 JOHANNA MELCHOR MD Ot Z98 .1 ARTHRODESIS STATUS 03/05/2020 ESTEPHANIA SALAMANCA MD Ot M54.5 LOW BACK PAIN 03/05/2020 ESTEPHANIA SALAMANCA MD Ot Z98.1 ARTHRODESIS STATUS Procedures Code Description Performed By [place] [address] YAA MIN D 25-HYDROXY (D2,D3, TOTAL) 11/01/2012 41206 SLEE P STUDY 11/29/2012 66500 OXIMETRY 04/14/2013 11868 THER APUTIC INJ SQ/IM 06/27/2013 J0696 ROCE PHIN INJ 06/27/2013 86.04 OTHE R SKIN SUBQ I D 06/29/2013 57148 THER APUTIC INJ SQ/IM 10/10/2013 J1885 TYREE DOL INJ 10/10/2013 98258 XRAY CHEST 2 VIEW 10/10/2013 27401 XRAY CERVICAL SPINE, 2 OR 3 VIEWS 10/10/2013 J1885 TYREE DOL INJ 10/23/2013 62976 THER APUTIC INJ SQ/IM 10/23/2013 28371 MRI SPINE (THORACIC) W/O CONTRAST 10/27/2013 24713 THER APUTIC INJ SQ/IM 11/03/2013 J2930 SOLU MEDROL INJ 11/03/2013 96819 THER APUTIC INJ SQ/IM 12/12/2013 J2930 SOLU MEDROL INJ 12/12/2013 72578 THER APUTIC INJ SQ/IM 12/16/2013 J1040 DEPO MEDROL 80 MG INJ 12/16/2013 J3301 EULOGIO LOG INJ, PER 10 MG 12/29/2013 27202 THER APUTIC INJ SQ/IM 12/29/2013 51884 MRI SPINE (LUMBAR) W/O CONTRAST 02/02/2014 86712 XRAY HIP LEFT UNILATERAL MIN 2 VIEWS 02/02/2014 68965 MRI SPINE (CERVICAL) W/O CONTRAST 03/21/2014 Anca Cee 03/21/2014 31614 THER APUTIC INJ SQ/IM 03/21/2014 J1040 DEPO MEDROL 80 MG INJ 03/21/2014 71533 THER APUTIC INJ SQ/IM 03/25/2014 J3301 EULOGIO LOG INJ, PER 10 MG 03/25/2014 23687 WART DESTRUCT 1-14 (CRYO) 05/04/2014 72519 MAMM OGRAM DX, RIGHT 05/05/2014 57388 MAMM OGRAM, SCREENING 05/05/2014 Results Test Result Range Bacterial blood culture - 07/09/18 14:32 Bacterial blood culture NG NRG Complete blood count (CBC) with automate d white blood cell (WBC) differential - 07/09/18 14:32 Blood leukocytes automated count (number/volume) 9.5 10*3/uL 4.3-11.0 Blood erythrocytes automated count (number/volume) 4.34 10*6/uL 4.35-5.85 Venous blood hemoglobin measurement (mass/volume) 13.0 g/dL 11.5-16.0 Blood hematocrit (volume fraction) 40 % 35-52 Automated erythrocyte mean corpuscular volume 91 [ foz_us] 80-99 Automated erythrocyte mean corpuscular h emoglobin (mass per erythrocyte) 30 pg 25-34 Automated erythrocyte mean corpuscular h emoglobin concentration measurement (mass/volume) 33 g/dL 32-36 Automated erythrocyte distribution width ratio 14. 6 % 10.0- 14.5 Automated blood platelet count (count/volume) 335 10*3/uL [...] 10*3 1.0-4.0 Blood monocytes automated count (number/volume) 0. 5 10*3 0.0-1.0 Automated eosinophil count 0.1 10*3/uL 0 .0-0.3 Automated blood basophil count (count/volume) 0.0 10*3/uL 0.0-0.1 Blood lactic acid measurement (moles/vol ume) - 07/09/18 14:32 Blood lactic acid measurement [...] 5-14 Serum or plasma urea nitrogen measurement (mass/volume ) 8 mg/dL 7-18 Serum or plasma creatinine measurement (mass/volume) 0.64 mg/dL 0.60-1.30 Serum or plasma urea nitrogen/creatinine mass ratio 13 NRG Serum or plasma creatinine measurement w ith calculation of estimated glomerular filtration rate > NRG Serum or plasma glucose measurement (mass/volume) 121 mg/dL 70-105 Serum or plasma calcium measurement (mass/volume) 9.4 mg/dL 8.5-10.1 Serum or plasma total bilirubin measurement (mass/volu me) 0.3 mg/dL 0.1-1.0 Serum or plasma alkaline phosphatase anisha surement (enzymatic activity/volume) 64 U/L 40-136 Serum or plasma aspartate aminotransfera se measurement (enzymatic activity/volume) 21 U/L 5-34 Serum or plasma alanine aminotransferase measurement (enzymatic activity/volume) 25 U/L 0-55 Serum or plasma protein measurement (mass/volume) 6.6 g/dL 6.4-8.2 Serum or plasma albumin measurement (mass/volume) 3.8 g/dL 3.2-4.5 CALCIUM CORRECTED 9.6 mg/dL 8.5-10.1 Bacterial blood culture - 07/09/18 14:40 Bacterial blood culture NG NRG Serum or plasma lactate measurement (mol es/volume) - 07/09/18 17:15 Serum or plasma lactate measurement (moles/volume) 1.00 mmol/L 0.50-2.00 Complete urinalysis with reflex to cultu re - 07/09/18 22:10 Urine color determination BHUPINDER NRG Urine clarity determination SLIGHTLY CLOUDY NRG Urine pH measurement by test strip 6 5-9 Specific gravity of urine by test strip 1.025 1.016-1.022 Urine protein assay by test strip, semi-quantitative 2+ NEGATIVE Urine glucose detection by automated test strip NE GATIVE NEGATIVE Erythrocytes detection in urine sediment by light micr oscopy 1+ NEGATIVE Urine ketones detection by automated test strip 2+ NEGATIVE Urine nitrite detection by test strip NEGATIVE NEGATIVE Urine total bilirubin detection by test strip 3+ NEGATIVE Urine urobilinogen measurement by automated test strip (mass/volume) 1 mg/dL NORMAL Urine leukocyte esterase detection by dipstick 1+ NEGATIVE Automated urine sediment erythrocyte cou nt by microscopy (number/high power field) NONE NRG Automated urine sediment leukocyte count by microscopy (number/high power field) [HPF] NRG Bacteria detection in urine sediment by light microsco py TRACE NRG Squamous epithelial cells detection in u rine sediment by light microscopy 2-5 NRG Crystals detection in urine sediment by light microsco py NONE NRG Casts detection in urine sediment by light microscopy NONE NRG Mucus detection in urine sediment by light microscopy LARGE NRG Complete urinalysis with reflex to culture YES NRG Yeast detection in urine sediment by light microscopy MODERATE NRG Bacterial urine culture - 07/09/18 22:10 Bacterial urine culture [id number] NRG COLONY COUNT . NRG FTX;REPORTABLE 40,000 CFU/ML OF YEAST N RG Complete blood count (CBC) with automate d white blood cell (WBC) differential - 07/11/18 06:04 Blood leukocytes automated count (number/volume) 11.6 10*3/uL 4.3-11.0 Blood erythrocytes automated count (number/volume) 4.07 10*6/uL 4.35-5.85 Venous blood hemoglobin measurement (mass/volume) 12.2 g/dL 11.5-16.0 Blood hematocrit (volume fraction) 38 % 35-52 Automated erythrocyte mean corpuscular volume 92 [ foz_us] 80-99 Automated erythrocyte mean corpuscular h emoglobin (mass per erythrocyte) 30 pg 25-34 Automated erythrocyte mean corpuscular h emoglobin concentration measurement (mass/volume) 32 g/dL 32-36 Automated erythrocyte distribution width ratio 14. 8 % 10.0- 14.5 Automated blood platelet count (count/volume) 377 10*3/uL [...] 10*3 1.0-4.0 Blood monocytes automated count (number/volume) 0. 4 10*3 0.0-1.0 Automated eosinophil count 0.0 10*3/uL 0 .0-0.3 Automated blood basophil count (count/volume) 0.0 10*3/uL 0.0-0.1 Comprehensive metabolic panel - 07/11/18 06:04 Serum or plasma sodium measurement (moles/volume) 140 mmol/L 135-145 Serum or plasma potassium measurement (moles/volume) 3.5 mmol/L 3.6-5.0 Serum or plasma chloride measurement (moles/volume) 104 mmol/L 98-107 Carbon dioxide 21 mmol/L 21-32 Serum or plasma anion gap determination (moles/volume) 15 mmol/L 5-14 Serum or plasma urea nitrogen measurement (mass/volume ) 9 mg/dL 7-18 Serum or plasma creatinine measurement (mass/volume) 0.65 mg/dL 0.60-1.30 Serum or plasma urea nitrogen/creatinine mass ratio 14 NRG Serum or plasma creatinine measurement w ith calculation of estimated glomerular filtration rate > NRG Serum or plasma glucose measurement (mass/volume) 148 mg/dL 70-105 Serum or plasma calcium measurement (mass/volume) 9.6 mg/dL 8.5-10.1 Serum or plasma total bilirubin measurement (mass/volu me) 0.2 mg/dL 0.1-1.0 Serum or plasma alkaline phosphatase anisha surement (enzymatic activity/volume) 57 U/L 40-136 Serum or plasma aspartate aminotransfera se measurement (enzymatic activity/volume) 15 U/L 5-34 Serum or plasma alanine aminotransferase measurement (enzymatic activity/volume) 27 U/L 0-55 Serum or plasma protein measurement (mass/volume) 6.2 g/dL 6.4-8.2 Serum or plasma albumin measurement (mass/volume) 3.7 g/dL 3.2-4.5 CALCIUM CORRECTED 9.8 mg/dL 8.5-10.1 - PANEL (PROFILE 1) - 04/01/19 10 :09 Prescribed Drug 1 Hydrocodone NRG Creatinine 50.1 mg/dL > or = 20.0 pH 7.33 4.5 - 9.0 Oxidant NEGATIVE mcg/mL <200 Amphetamines NEGATIVE ng/mL <500 medMATCH Amphetamines CONSISTENT NRG Benzodiazepines NEGATIVE ng/mL <100 medMATCH Benzodiazepines CONSISTENT NRG Marijuana Metabolite NEGATIVE ng/mL <20 medMATCH Marijuana Metab CONSISTENT NRG Cocaine Metabolite NEGATIVE ng/mL <150 medMATCH Cocaine Metab CONSISTENT NRG Opiates POSITIVE ng/mL <100 Oxycodone NEGATIVE ng/mL <100 medMATCH Oxycodone CONSISTENT NRG COMMENT NRG Codeine NEGATIVE ng/mL <50 medMATCH Codeine CONSISTENT NRG Hydrocodone NEGATIVE ng/mL <50 medMATCH Hydrocodone CONSISTENT NRG Hydromorphone NEGATIVE ng/mL <50 medMATCH Hydromorphone CONSISTENT NRG Morphine NEGATIVE ng/mL <50 medMATCH Morphine INCONSISTENT NRG Norhydrocodone 94 ng/mL <50 medMATCH Norhydrocodone CONSISTENT NRG Prescribed Drug 2 MS Contin(TM) NRG Barbiturates NEGATIVE ng/mL <300 medMATCH Barbiturates CONSISTENT NRG Methadone Metabolite NEGATIVE ng/mL <100 medMATCH Methadone Metab CONSISTENT NRG Phencyclidine NEGATIVE ng/mL <25 medMATCH Phencyclidine CONSISTENT NRG CMP - 11/12/19 11:50 GLUCOSE 88 mg/dL 65-139 UREA NITROGEN (BUN) 15 mg/dL 7-25 CREATININE 0.57 mg/dL 0.50-1.05 eGFR NON-AFR. [place] 105 mL/min/1.73m2 > OR = 60 eGFR 122 mL/min/1.73m2 > OR = 60 BUN/CREATININE RATIO NOT APPLICABLE (calc) 6-22 SODIUM 141 mmol/L 135-146 POTASSIUM 4.0 mmol/L 3.5-5.3 CHLORIDE 104 mmol/L 98-110 CARBON DIOXIDE 30 mmol/L 20-32 CALCIUM 9.0 mg/dL 8.6-10.4 PROTEIN, TOTAL 5.9 g/dL 6.1-8.1 ALBUMIN 3.5 g/dL 3.6-5.1 GLOBULIN 2.4 g/dL (calc) 1.9-3.7 ALBUMIN/GLOBULIN RATIO 1.5 (calc) 1.0-2. 5 BILIRUBIN, TOTAL 0.3 mg/dL 0.2-1.2 ALKALINE PHOSPHATASE 60 U/L 33-130 AST 14 U/L 10-35 ALT 16 U/L 6-29 LIPID PANEL - 12/11/19 08:21 CHOLESTEROL, TOTAL 169 mg/dL <200 HDL CHOLESTEROL 79 mg/dL > OR = 50 TRIGLYCERIDES 160 mg/dL <150 LDL-CHOLESTEROL 66 mg/dL (calc) NRG CHOL/HDLC RATIO 2.1 (calc) <5.0 NON HDL CHOLESTEROL 90 mg/dL (calc) <130 Coronavirus SARS-CoV-2 SO 2018 0 13:38 Coronavirus Ab [Units/volume] in Serum Negative Negative Encounters ACCT No. Visit Date/Time Discharge Status Pt. Type Provider Facility Loc./Unit Complaint [id number] 11/05/2018 09:53:21 11/05/2018 23:59: 59 CLS Outpatient KORTNEY REYNOSO [id number] 11/05/2018 08:20:54 11/05/2018 23:59: 59 CLS Outpatient KORTNEY REYNOSO [id number] 07/28/2019 08:17:00 07/28/2019 23:59: 00 DIS Outpatient UNLISTED, UNLISTED [id number] 08/31/2014 09:53:00 08/31/2014 23:59: 59 CLS Outpatient KELLEY COBB DDS [id number] 07/06/2014 00:00:00 07/06/2014 23:59: 59 CLS Outpatient CHIO COBB DDS [id number] 06/12/2014 11:17:00 06/12/2014 23:59: 59 CLS Outpatient CHIO COBB DDS [id number] 05/04/2014 16:57:00 05/04/2014 23:59: 59 CLS Outpatient PHILLY KENNY DO [id number] 05/04/2014 16:57:00 05/04/2014 23:59: 59 CLS Outpatient PHILLY KENNY DO [id number] 04/30/2014 10:28:00 04/30/2014 23:59: 59 CLS Outpatient TAE ARBOLEDA APRN [id number] 03/25/2014 16:09:00 03/25/2014 23:59: 59 CLS Outpatient PHILLY KENNY DO [id number] 03/21/2014 09:35:00 03/21/2014 23:59: 59 CLS Outpatient LIVE DIAZ APRN [id number] 03/21/2014 09:35:00 03/21/2014 23:59: 59 CLS Outpatient LIVE DIAZ APRN [id number] 02/02/2014 08:58:00 02/02/2014 23:59: 59 CLS Outpatient LIVE DIAZ APRN [id number] 12/16/2013 16:30:00 12/16/2013 23:59: 59 CLS Outpatient LIVE DIAZ APRN [id number] 12/16/2013 16:30:00 12/16/2013 23:59: 59 CLS Outpatient LIVE DIAZ APRN [id number] 12/12/2013 16:04:00 12/12/2013 23:59: 59 CLS Outpatient LIVE DIAZ APRN [id number] 11/03/2013 15:38:00 11/03/2013 23:59: 59 CLS Outpatient PHILLY KENNY DO Alicia [id number] 10/27/2013 11:41:00 10/27/2013 23:59: 59 CLS Outpatient LIVE DIAZ APRN Ankur [id number] 10/23/2013 16:44:00 10/23/2013 23:59: 59 CLS Outpatient LIVE DIAZ APRN [id number] 10/10/2013 10:42:00 10/10/2013 23:59: 59 CLS Outpatient LIVE DIAZ APRN [id number] 10/10/2013 10:42:00 10/10/2013 23:59: 59 CLS Outpatient JOE BETANCURNLIVE Ankur [id number] 08/21/2013 10:23:00 08/21/2013 23:59: 59 CLS Outpatient MILO LEMUS MD [id number] 08/09/2013 12:28:00 08/09/2013 23:59: 59 CLS Outpatient LIVE DIAZ APRN [id number] 06/27/2013 08:22:00 06/27/2013 23:59: 59 CLS Outpatient LIVE DIAZ APRN [id number] 12/16/2012 13:36:00 12/16/2012 23:59: 59 CLS Outpatient ADÁN FARFAN MD [id number] 11/29/2012 08:56:00 11/29/2012 23:59: 59 CLS Outpatient [id number] 11/01/2012 09:27:00 11/01/2012 23:59: 59 CLS Outpatient [id number] 07/24/2012 14:01:00 07/24/2012 23:59:5 9 CLS Outpatient LIVE DIAZ APRN [id number] 07/14/2013 14:17:00 Document Registration [id number] 06/27/2013 08:22:00 Document Registration [id number] 04/09/2013 09:13:00 Document Registration [id number] 04/09/2013 09:13:00 Document Registration [id number] 03/14/2013 12:36:00 Document Registration [id number] 02/20/2013 13:13:00 Document Registration [id number] 03/11/2020 09:13:00 16:27:00 DIS Outpatient MARIANNA FONTANEZ DO [facility] PREOP COLONOSCOPY [id number] 03/04/2020 14:25:00 23:59:59 CLS Outpatient ESTEPHANIA SALAMANCA MD [facility] RAD LUMBAGO [id number] 11/04/2019 11:33:00 23:59:59 CLS Outpatient JOHANNA MELCHOR MD [facility] RAD HX OF FRACTURE OF LT HI P [id number] 09/02/2019 12:22:00 08:58:00 DIS Outpatient ESTEPHANIA SALAMANCA MD [facility] REHAB LUMBAR FUSION [id number] 09/11/2019 12:21:00 23:59:59 CLS Preadmit CHEIKH MALHOTRA, ESTEPHANIA Steve [facility] RAD LUMBAGO [id number] 09/09/2019 07:20:00 08:18:00 DIS Emergency RIVAS MAYS MD [facility] ER LOWER BACK PAIN [id number] 08/21/2019 13:50:00 14:15:00 DIS Outpatient CHRIS HOUSTON APRN [facility] SLEEP DYSPNEA,SLEEP D ISORDER [id number] 08/07/2019 08:52:00 23:59:59 CLS Outpatient SHERIE MALHOTRA, LOIS Ponce [facility] CARD SOB [id number] 08/06/2019 15:44:00 23:59:59 CLS Outpatient CHRIS HOUSTON APRN [facility] RT DYSPNEA,UNSPECI FIED [id number] 07/22/2019 13:35:00 23:59:59 CLS Preadmit LOIS REHMAN MD [facility] RAD SOB [id number] 07/22/2019 09:28:00 23:59:59 CLS Outpatient LOIS REHMAN MD Kris [facility] RAD FS R06.02 [id number] 03/04/2019 10:25:00 23:59:59 CLS Emergency LIVE DILL DO [facility] FS LT LEG BACK PAIN [id number] 02/06/2019 18:49:00 19:35:00 DIS Emergency LIVE DILL DO [facility] FS NERVE PAIN IN LEFT LEG AND BACK [id number] 01/11/2019 09:18:00 09:50:00 DIS Emergency SOHAIL MORALES MD [facility] FS LT LEG PAIN [id number] 01/11/2019 09:13:00 09:13:00 CAN Preadmit SOHAIL MORALES MD [facility] FS LT LEG PAIN [id number] 07/09/2018 12:20:00 018 23:59:59 CLS Inpatient RINKU MAURICIO MD [facility] 4TH HYPOXIA, FAILURE OF OUT PT TREATMENT OF BRONCHITIS [id number] 04/11/2018 13:10:00 018 23:59:59 CLS Outpatient KORTNEY DOYLE DO [facility] CARD LUMBAR RADICULO ILENE [id number] 01/17/2018 12:48:00 018 13:32:00 DIS Outpatient KORTNEY DOYLE DO [facility] CARD LUMBAR RADICULO ILENE [id number] 05/26/2014 12:44:00 014 23:59:59 CLS Outpatient TAE ARBOLEDA FI[employer] 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 [facility] RT BREAST NODULE [id number] 05/07/2014 15:29:00 014 23:59:59 CLS Outpatient TAE ARBOLEDA [employer] 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 [facility] RAD SCREENING [id number] 03/30/2014 12:59:00 014 23:59:59 CLS Outpatient LIVE DIAZ [facility] RAD CERVICALGIA [id number] 03/26/2014 13:11:00 014 14:40:00 DIS Emergency MIRELA HUANG [employer] 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 [facility] ER NECK PAIN [id number] 02/10/2014 13:03:00 014 23:59:59 CLS Outpatient LIVE DIAZ [facility] RAD LUMBAR RADICULOPATHY [id number] 10/31/2013 14:53:00 014 23:59:59 CLS Outpatient LIVE DIAZ [facility] RAD THORACIC RADICULOPATHY [id number] 07/14/2013 07:59:00 013 00:01:00 DIS Outpatient LEANDRA AMATO MD [facility] SURG RCR CELLULITIS [id number] 06/29/2013 10:15:00 19:15:00 DIS Inpatient LM MALHOTRA, LEANDRA Castaneda [facility] SURGICAL ABSCESS L FACIAL [id number] 03/12/2013 17:56:00 23:59:59 CLS Outpatient [id number] 03/01/2013 22:30:00 17:10:00 DIS Outpatient MARIAH MALHOTRA, MILO Ponce [facility] [id number] 03/01/2013 19:18:00 23:59:59 CLS Outpatient [id number] 03/12/2020 15:07:00 Document Registration [id number] 01/14/2018 19:26:00 Document Registration [id number] 03/04/2020 13:00:00 03/04/2020 23:59: 59 CLS Outpatient JILL MALHOTRA, JOHANNA Cano [facility] [id number] 12/11/2019 08:20:00 Document Registration [id number] 11/12/2019 10:40:00 Document Registration [id number] 04/01/2019 10:00:00 Document Registration
[2020-03-15] MEDS ORDERED: PROPOFOL INJECTION 50 ML IV ONE (07:17)
[2020-03-15] MEDS ORDERED: MIDAZOLAM 2 MG/2 ML (VERSED) VIAL ONE (07:17)
[2020-03-15 07:25] VITALS: BP 163/93
--- NOTE | 2020-03-15 07:59 | Progress Note-Pre Operative ---
Pre-Operative Progress Note H&P Reviewed The H&P was reviewed, patient examined and no changes noted. Time Seen by Provider: 07:56 Date H&P Reviewed: March 15, 2020 Time H&P Reviewed: 07:55 Pre-Operative Diagnosis: Family hx of colon CA, personal hx of colon polyps MARIANNA FONTANEZ DO March 15, 2020 07:59
[2020-03-15] MEDS ORDERED: proPOfol 200 MG/20 ML (DIPRIVAN) VIAL IV ONE (08:13)
[2020-03-15 08:30] VITALS: BP 138/64
[2020-03-15 08:50] VITALS: BP 174/93
--- NOTE | 2020-03-15 09:07 | Progress Note-Post Operative ---
Post-Operative Progess Note Surgeon (s)/Utilization Review Rn (s) Surgeon MARIANNA FONTANEZ DO Utilization Review Rn: none Pre-Operative Diagnosis Family hx of colon CA, personal hx of colon polyps Post-Operative Diagnosis colon polyps int hemorrhoids Procedure & Operative Findings Date of Procedure 03/15/20 Procedure Performed/Findings Colon with snare Anesthesia Type IV sedation by TOWERMAN Estimated Blood Loss Estimated blood loss (mL): scant Specimens/Packing Specimens Removed ascending, sigmoid and rectal polyp MARIANNA FONTANEZ DO March 15, 2020 09:07
--- NOTE | 2020-03-15 09:09 | Endoscopy Discharge Instruct ---
Endo Procedure/Findings Findings 1.: Polyp 2.: Internal Hemorrhoids Discharge Instructions - Activity: You might feel a little sleepy until tomorrow. This is due to the medicine you received to relax you. Until tomorrow, you should: NOT drive a car, operate machinery or power tools. NOT drink any alcoholic beverages. NOT make any important decisions or sign importortant papers. Do not return to work until tomorrow, unless otherwise instructed. Resume previous activities tomorrow. Diet: Start by taking liquids. If you tolerate liquids, advance to solid food. make an appointment for one week. 1.: Colonscopy in 5 years Notify Physician - If you experience excessive bleeding, unusual abdominal pain, fever, or chest pain, contact your doctor immediately. MARAINNA FONTANEZ DO March 15, 2020 09:09
[2020-03-15 09:20] VITALS: BP 174/93
--- NOTE | 2020-03-15 09:20 | NUR ---
ALERT, HAS BEEN TO BR WITH ASSIST, PASSED FLATUS. REPORTS "GASSY" DISCOMFORT "1". STATES SHE IS READY FOR DISMISSAL.
--- NOTE | 2020-03-15 13:58 | Anesthesia-General Post-Op ---
MAC Patient Condition Mental Status/LOC: Same as Preop Cardiovascular: Satisfactory Nausea/Vomiting: Absent Respiratory: Satisfactory Pain: Controlled Complications: Absent Post Op Complications Complications None Follow Up Care/Instructions Patient Instructions None needed. Anesthesiology Discharge Order Discharge Order Patient is doing well, no complaints, stable vital signs, no apparent adverse anesthesia problems. No complications reported per nursing. HAYDEE VERDE CRNA March 15, 2020 13:58
--- NOTE | 2020-03-15 19:40 | OPERATIVE REPORT ---
DATE OF SERVICE: PREOPERATIVE DIAGNOSES: Family history of colon cancer and personal history of polyps. POSTOPERATIVE DIAGNOSES: Colon polyps and internal hemorrhoids. PROCEDURE: Colonoscopy with snare polypectomy. SURGEON: Joe Bah DO STERILIZATION TECHNICIAN: None. ANESTHESIA: IV sedation by the DECORATING CONSULTANT. SPECIMEN: Polyp from the ascending colon, polyp from the sigmoid colon and one polyp from the rectum. BLOOD LOSS: Scant. FLUIDS: Per anesthesia. POSTOPERATIVE CONDITION: Stable. INDICATION FOR PROCEDURE: The patient is a 54-year-old female who has a family history of colon cancer and a personal history of colon polyps and needed a diagnostic colonoscopy. FINDINGS: The patient had polyps in the ascending colon, sigmoid and rectum, and some internal hemorrhoids. PROCEDURE NOTE: After informed consent was obtained, the patient was brought to the endoscopy suite, placed in bed in the left lateral decubitus position. She was administered IV sedation by the DECORATING CONSULTANT who then monitored her vitals the entire time, heart rate, blood pressure and pulse ox and the scope was inserted, pushed all the way about 150 cm, able to get into the cecum, took a picture of appendiceal orifice, noted the ileocecal valve and then slowly withdrew the scope insufflating to look circumferentially at the hidalgo looking the cecum, up the ascending colon and in the ascending colon, saw a polyp, took a picture of this and did a snare polypectomy and continued up to the hepatic flexure, then down the transverse colon, splenic flexure, into the descending colon and down in the sigmoid. In the sigmoid, saw another flat polyp, did a snare polypectomy and then down in the rectum, saw a third polyp, did another snare polypectomy of this and then retroflexed the scope in the rectal vault, saw some very minimal internal hemorrhoids. Scope was then removed. The patient tolerated the procedure and recovered in endoscopy suite. Job ID: [id number] DocumentID: [id number] Dictated Date: 03/15/2020 15:03:27 Warehouse Handler Date: 03/15/2020 19:40:26 Dictated By: JOE BAH DO
== END 2020-03-15 09:20 | disposition home or self-care (01) ==
LOC: ENDO 06:58
PROVIDERS: ATTEND Surgery
DX: D12.2 Benign neoplasm of ascending colon (principal); K63.5 Polyp of colon; K62.1 Rectal polyp; K63.89 Other specified diseases of intestine; K64.8 Other hemorrhoids; Z80.0 Family history of malignant neoplasm of digestive organs; K52.9 Noninfective gastroenteritis and colitis, unspecified; F32.9 Major depressive disorder, single episode, unspecified; J44.9 Chronic obstructive pulmonary disease, unspecified; G47.10 Hypersomnia, unspecified; R06.83 Snoring; Z87.891 Personal history of nicotine dependence; I10 Essential (primary) hypertension; K21.9 Gastro-esophageal reflux disease without esophagitis; Z79.899 Other long term (current) drug therapy; Z88.2 Allergy status to sulfonamides; Z86.010 Personal history of colon polyps

== ENCOUNTER → 2020-04-19 | Outpatient (CLI) | payer MEDICARE, MEDICAID | LOC: LABNPT 06:59 | PROVIDERS: ATTEND Orthopaedic Surgery Orthopaedic Surgery of the Spine | DX: Z01.818 Encounter for other preprocedural examination (principal); Z11.59 Encounter for screening for other viral diseases | CPT/HCPCS: 87635 ==

== ENCOUNTER → 2020-05-17 | Outpatient (CLI) | payer MEDICARE, MEDICAID | LOC: LABNPT 06:43 | PROVIDERS: ATTEND Orthopaedic Surgery Orthopaedic Surgery of the Spine | DX: M46.1 Sacroiliitis, not elsewhere classified (principal); Z20.828 Contact with and (suspected) exposure to other viral communicable diseases | CPT/HCPCS: 87635 ==

== ENCOUNTER → 2020-05-21 | Outpatient (CLI) | payer MEDICARE, MEDICAID ==
[~2020-05-21] VITALS: Ht 157 cm; Wt 119.0 kg
[~2020-05-21] MED LIST changes: +CATHETER FLUSH 10 ML SYR IV PRN; +REGADENOSON 0.4 MG/5 ML SYR (LEXISCAN) IV ONE
== END ==
LOC: CARD 08:00
PROVIDERS: ATTEND Pediatrics
DX: I20.0 Unstable angina (principal)
CPT/HCPCS: 78452; 93017; A9502

== ENCOUNTER 2020-07-09 19:51 | Emergency (ER) | payer MEDICARE, MEDICAID ==
[~2020-07-09] VITALS: Ht 160 cm; Wt 118.8 kg
[~2020-07-09 19:51] MED LIST changes: -CATHETER FLUSH 10 ML SYR IV PRN; -LISI1TAB25 PO; +LISI1TAB46 PO; -REGADENOSON 0.4 MG/5 ML SYR (LEXISCAN) IV ONE
[2020-07-09 20:11] VITALS: BP 147/92
[2020-07-09] MEDS ORDERED: PRD20T PO (20:38)
[2020-07-09] MEDS ORDERED: METH-313 PO (20:38)
--- NOTE | 2020-07-09 20:38 | ED Back Pain ---
General Chief Complaint: Back Problems Stated Complaint: BACK & L LEG PAIN Nursing Triage Note: PT AMB TO TRIAGE WITH COMPLAINT OF BACK PAIN THAT RADIATES DOWN LEFT LEG. STATES HAS SCIATICA PAIN. Nursing Sepsis Screen: No Definite Risk Source of Information: Patient Exam Limitations: No Limitations History of Present Illness Date Seen by Provider: Jul 09, 2020 Time Seen by Provider: 20:36 Initial Comments To ER with severe back pain that radiates down left leg. No fever no chills no trauma. History of chronic back pain and sciatica. She states that she's had back surgery but continues to have pain. She states she has been taking Tylenol without relief at home. KTRACS would indicate that she also has hydrocodone. No loss of bowel or bladder control no loss of sensation or genitals. Location: Lumbar Spine Timing/Duration: 3-4 Days Severity: Moderate Pain/Injury Location: Back Associated Symptoms: denies symptoms Allergies and Home Medications Allergies Coded Allergies: No Known Allergies (Verified Allergy, Unknown, 07/09/18) Home Medications Acetaminophen 500 Mg Tablet, 500-1,000 MG PO Q6H PRN for PAIN-MILD, (Reported) Budesonide 3 Mg Capdr...er, 9 MG PO DAILY, (Reported) TAKES 3 (3MG) CAPSULES Estradiol 1 Mg Tablet, 1 MG PO DAILY, (Reported) Gabapentin 300 Mg Capsule, 900 MG PO TID, (Reported) TAKES 3 (300MG) CAPSULES Hydrocodone Bit/Acetaminophen 1 Each Tablet, 1 TAB PO Q6H PRN for PAIN-MODERATE, (Reported) Lisinopril/Hydrochlorothiazide 1 Each Tablet, 1 EACH PO DAILY, (Reported) Methocarbamol 750 Mg Tablet, 750 MG PO Q6H PRN for PAIN-SEVERE (8-10) Prescribed by: MIRELA HUANG on 07/09/202037 Multivitamin 1 Each Tablet, 1 TAB PO DAILY, (Reported) Prednisone 20 Mg Tab, 40 MG PO DAILY Prescribed by: MIRELA HUANG on 07/09/202037 Simvastatin 40 Mg Tablet, 40 MG PO HS, (Reported) Vilazodone Hydrochloride 40 Mg Tablet, 40 MG PO DAILY, (Reported) Patient Home Medication List Home Medication List Reviewed: Yes Review of Systems Constitutional: see HPI EENTM: see HPI Respiratory: no symptoms reported Cardiovascular: no symptoms reported Genitourinary: no symptoms reported Musculoskeletal: see HPI, back pain Skin: no symptoms reported Psychiatric/Neurological: No Symptoms Reported Past Vaoeahn-Gfttxe-Qvssox Hx Patient Social History Alcohol Use: Denies Use Recreational Drug Use: No Smoking Status: Former Smoker Type Used: Cigarettes Former Smoker, Quit: March 06, 2019 2nd Hand Smoke Exposure: No Recent Foreign Travel: No Contact w/Someone Who Travel: No Recent Infectious Disease Expo: No Recent Hopitalizations: No Immunizations Up To Date Tetanus Booster (TDap): Unknown PED Vaccines UTD: No Date of Pneumonia Vaccine: Jun 28, 2011 Seasonal Allergies Seasonal Allergies: No Past Medical History Surgeries: Yes (diskectomy; laminectomy, back sx) Appendectomy, Gallbladder, Hysterectomy Respiratory: Yes Pneumonia Cardiac: Yes Chronic Edema/Swelling, Hypertension Neurological: No Reproductive Disorders: No (HAS 3 GROWN CHILDREN) Female Reproductive Disorders: Denies Sexually Transmitted Disease: No HIV/AIDS: No Genitourinary: No Gastrointestinal: Yes Polyps Musculoskeletal: Yes Back Injury, Chronic Back Pain Endocrine: No HEENT: No Cancer: No Psychosocial: Yes Depression Integumentary: No Blood Disorders: No Adverse Reaction/Blood Tranf: No Family Medical History Arthritis Asthma Cardiovascular disease Colon cancer Completed stroke FH: colon cancer Hypertension Myocardial infarction Psychosocial problem Respiratory disorder No Pertinent Family Hx Physical Exam Vital Signs Vital Signs - First Documented 07/09/20 20:11 Pulse 85 Resp 20 B/P (MAP) 147/92 (110) Pulse Ox 95 O2 Delivery Room Air Capillary Refill : Less Than 3 Seconds Height, Weight, BMI Height: 5'5.00" Weight: 248lbs. 2.0oz. 112.455219rd; 46.00 BMI Method:Stated General Appearance: No Apparent Distress, WD/WN Respiratory: No Accessory Muscle Use, No Respiratory Distress Neurologic/Psychiatric: Alert, Oriented x3 Skin: Normal Color, Warm/Dry Progress/Results/Core Measures Results/Orders My Orders Orders - MIRELA HUANG APRN Ketorolac Injection (Toradol Injection) (07/09/20 20:45) Orphenadrine Inj (Ed Only) (Norflex Inje (07/09/20 20:45) Vital Signs/I&O 07/09/20 20:11 Pulse 85 Resp 20 B/P (MAP) 147/92 (110) Pulse Ox 95 O2 Delivery Room Air Blood Pressure Mean: 110 Departure Impression Primary Impression: Lumbar radiculopathy Disposition: 01 HOME, SELF-CARE Condition: Stable Departure-Patient Inst. Decision time for Depature: 20:37 Referrals: JOHANNA PERAZA MD (PCP/Family) Primary Care Physician Patient Instructions: Radiculopathy (DC) Add. Discharge Instructions: Medication as directed. Return to ER for any concerns. Follow-up with your doctor next week. All discharge instructions reviewed with patient and/or family. Voiced understanding. Scripts Prednisone (Prednisone) 20 Mg Tab 40 MG PO DAILY, #8 TAB 0 Refills Prov: MIRELA HUANG APRN 07/09/20 MIRELA HUANG APRN Jul 09, 2020 20:38
[2020-07-09] MEDS ORDERED: KETOROLAC 60 MG/2 ML VIAL IM ONE (20:45)
[2020-07-09] MEDS ORDERED: ORPHENADRINE 60 MG/2 ML (NORFLEX) AMP (ED ONLY) IM ONE (20:45)
== END 2020-07-09 21:11 | disposition home or self-care (01) ==
LOC: EDUNIT# 19:51 → ER 19:53
DX: M54.16 Radiculopathy, lumbar region (principal); I10 Essential (primary) hypertension; F32.9 Major depressive disorder, single episode, unspecified; G89.29 Other chronic pain; Z79.52 Long term (current) use of systemic steroids; Z87.891 Personal history of nicotine dependence; Z79.891 Long term (current) use of opiate analgesic; Z82.49 Family history of ischemic heart disease and other diseases of the circulatory system; Z80.0 Family history of malignant neoplasm of digestive organs
CPT/HCPCS: 99284

== ENCOUNTER → 2020-07-19 | Outpatient (CLI) | payer MEDICARE, MEDICAID ==
[~2020-07-19] MED LIST changes: +METH-313 PO
--- NOTE | 2020-07-19 09:28 | Diagnostic Imaging Report ---
PROCEDURE: MRI lumbar spine. TECHNIQUE: Multiplanar, multisequence MRI of the lumbar spine was performed without contrast. INDICATION: Chronic lower back pain. Previous lumbar spine fusion. COMPARISON: 03/04/2020 FINDINGS: Patient is status post previous laminectomy and posterior fusion at L3-L4. Evaluation of the hardware integrity is suboptimal given MR modality and metallic susceptibility artifact, but static alignment of the lumbar spine is maintained. There is no significant anteroretrolisthesis. There is no evidence of jumped facets. Vertebral body heights are maintained. There is no acute fracture. Marrow signal is normal throughout. Intervertebral disc spacer is also noted at the L3-L4 level and appears to be appropriately positioned. Other remaining intervertebral disc heights are maintained. Visualized portions of distal cord are unremarkable. Conus terminates at approximately the L1-L2 level. No abnormal intrathecal filling defects are seen. Pre and paravertebral soft tissue structures are unremarkable. Axial images show no large disc bulge or focal protrusion. There is no significant spinal canal or neuroforaminal stenosis throughout. IMPRESSION: 1. Postsurgical changes of previous laminectomy and posterior fusion of L3-L4. Again, although evaluation of the integrity of the hardware is suboptimal, static alignment is maintained. 2. No acute fracture or dislocation lumbar spine. 3. No significant spinal canal or neuroforaminal stenosis. Dictated by: Dictated on workstation # [id number]
== END ==
LOC: RAD 08:00
PROVIDERS: ATTEND Chiropractor
DX: M48.061 Spinal stenosis, lumbar region without neurogenic claudication (principal); Z98.1 Arthrodesis status
CPT/HCPCS: 72148

== ENCOUNTER 2020-07-31 10:09 | Emergency (ER) | payer MEDICARE, MEDICAID ==
[~2020-07-31] VITALS: Ht 157.5 cm; Wt 120.2 kg
[2020-07-31 10:19] VITALS: BP 179/102
[2020-07-31] MEDS ORDERED: ORPHENADRINE 60 MG/2 ML (NORFLEX) AMP (ED ONLY) IM STA (10:39)
[2020-07-31] MEDS ORDERED: KETOROLAC 60 MG/2 ML VIAL IM STA (10:39)
[2020-07-31] MEDS ORDERED: predniSONE 20 MG TAB PO ONE (10:45)
[2020-07-31] MEDS ORDERED: PRD20T PO (10:48)
--- NOTE | 2020-07-31 10:48 | ED Back Pain ---
General Chief Complaint: Back Problems Stated Complaint: LOW BACK/L LEG PAIN Nursing Triage Note: pt amb to rm 5 with complaint of sciatica pain that radiates down left leg. Nursing Sepsis Screen: No Definite Risk Source of Information: Patient Exam Limitations: No Limitations History of Present Illness Date Seen by Provider: Jul 31, 2020 Time Seen by Provider: 10:32 Initial Comments Here with left-sided low back pain that radiates down the left leg. This is typical for her chronic sciatica with exacerbations. Seen for similar about a month ago. Denies new injury or concern. Denies numbness between her legs, weakness, bowel or bladder incontinence. States that this occurred when she sat oddly in a recliner a few days ago at her daughter's house. She does have hydrocodone prescription that she is not out of. She has been using ibuprofen instead of her diclofenac due to it works faster. Last dose of ibuprofen was 4 AM. She has also been taking acetaminophen supplement. States that the steroids that are usually given usually work. She has been following with her doctor related to her chronic back pain. Location: Lumbar Spine Timing/Duration: 2-3 Days Severity: Moderate Pain/Injury Location: Back Radiation: Buttocks, Upper Legs Method of Injury: Unknown Modifying Factors: Worse With Movement; Improves With Rest Associated Symptoms: muscle spasms; No fever, No weakness, No numbness in legs/feet, No tingling in legs/feet, No sensory/motor loss; lower back pain; No loss of bladder control, No loss of bowel control Allergies and Home Medications Allergies Coded Allergies: No Known Allergies (Verified Allergy, Unknown, 07/09/18) Home Medications Acetaminophen 500 Mg Tablet, 500-1,000 MG PO Q6H PRN for PAIN-MILD, (Reported) Budesonide 3 Mg Capdr...er, 9 MG PO DAILY, (Reported) TAKES 3 (3MG) CAPSULES Estradiol 1 Mg Tablet, 1 MG PO DAILY, (Reported) Gabapentin 300 Mg Capsule, 900 MG PO TID, (Reported) TAKES 3 (300MG) CAPSULES Hydrocodone Bit/Acetaminophen 1 Each Tablet, 1 TAB PO Q6H PRN for PAIN-MODERATE, (Reported) Lisinopril/Hydrochlorothiazide 1 Each Tablet, 1 EACH PO DAILY, (Reported) Multivitamin 1 Each Tablet, 1 TAB PO DAILY, (Reported) Prednisone 20 Mg Tab, 40 MG PO DAILY Prescribed by: MIREAL HUANG on 07/09/202037 Simvastatin 40 Mg Tablet, 40 MG PO HS, (Reported) Vilazodone Hydrochloride 40 Mg Tablet, 40 MG PO DAILY, (Reported) Patient Home Medication List Home Medication List Reviewed: Yes Review of Systems Constitutional: No chills, No fever Respiratory: no symptoms reported Cardiovascular: no symptoms reported Musculoskeletal: see HPI, back pain, muscle pain Skin: no symptoms reported Past Jhjdgfe-Outbib-Usnxqe Hx Past Med/Social Hx: Reviewed Nursing Past Med/Soc Hx Patient Social History Alcohol Use: Denies Use Recreational Drug Use: No Smoking Status: Former Smoker Type Used: Cigarettes Former Smoker, Quit: March 06, 2019 2nd Hand Smoke Exposure: No Recent Foreign Travel: No Contact w/Someone Who Travel: No Recent Infectious Disease Expo: No Recent Hopitalizations: No Immunizations Up To Date Tetanus Booster (TDap): Unknown PED Vaccines UTD: No Date of Pneumonia Vaccine: Jun 28, 2011 Seasonal Allergies Seasonal Allergies: No Past Medical History Surgeries: Yes (diskectomy; laminectomy, back sx) Appendectomy, Gallbladder, Hysterectomy Respiratory: Yes Pneumonia Cardiac: Yes Chronic Edema/Swelling, Hypertension Neurological: No Reproductive Disorders: No (HAS 3 GROWN CHILDREN) Female Reproductive Disorders: Denies Sexually Transmitted Disease: No HIV/AIDS: No Genitourinary: No Gastrointestinal: Yes Polyps Musculoskeletal: Yes Back Injury, Chronic Back Pain Endocrine: No HEENT: No Cancer: No Psychosocial: Yes Depression Integumentary: No Blood Disorders: No Adverse Reaction/Blood Tranf: No Family Medical History Reviewed Nursing Family Hx Arthritis Asthma Cardiovascular disease Colon cancer Completed stroke FH: colon cancer Hypertension Myocardial infarction Psychosocial problem Respiratory disorder No Pertinent Family Hx Physical Exam Vital Signs Vital Signs - First Documented 07/31/20 10:19 Temp 36.6 Pulse 114 Resp 20 B/P (MAP) 179/102 (127) Pulse Ox 96 O2 Delivery Room Air Capillary Refill : Less Than 3 Seconds Height, Weight, BMI Height: 5'5.00" Weight: 248lbs. 2.0oz. 112.197280co; 48.00 BMI Method:Stated General Appearance: WD/WN, Mild Distress, Obese Cardiovascular: Regular Rate, Rhythm, No Murmur Respiratory: Lungs Clear, Normal Breath Sounds Back: Muscle Spasm; No Vertebral Tenderness; Other (tender at the left SI joint. Sitting towards the right side with the left leg up and pulled back on the bed and the right leg down for comfort.) Neurologic/Psychiatric: Alert, Oriented x3, No Motor/Sensory Deficits Progress/Results/Core Measures Results/Orders My Orders Orders - RIVAS MAYS MD Ketorolac Injection (Toradol Injection) (07/31/20 10:39) Orphenadrine Inj (Ed Only) (Norflex Inje (07/31/20 10:39) Prednisone Tablet (Deltasone Tablet) (07/31/20 10:45) Vital Signs/I&O 07/31/20 10:19 Temp 36.6 Pulse 114 Resp 20 B/P (MAP) 179/102 (127) Pulse Ox 96 O2 Delivery Room Air Blood Pressure Mean: 127 Progress Progress Note : Progress Note Seen and evaluated. Records reviewed. Prednisone 60 mg by mouth, Norflex 60 mg IM and Toradol 60 mg IM. Discharged home with return precautions. Patient verbalize understanding instructions and agreement with plan. Departure Impression Primary Impression: Lumbar radiculopathy Disposition: HOME, SELF-CARE Condition: Stable Departure-Patient Inst. Decision time for Depature: 10:46 Referrals: JOHANNA PERAZA MD (PCP/Family) Primary Care Physician Patient Instructions: Radiculopathy (DC), Low Back Pain (DC) Add. Discharge Instructions: All discharge instructions reviewed with patient and/or family. Voiced understanding. Continue home medications as previously prescribed. Follow-up with your doctor on Sunday for recheck and further evaluation. Take medications as directed. If you are not taking diclofenac, you may take ibuprofen 600 or 800 mg every 8 hours as needed for pain. You may do acetaminophen supplement but do not exceed 4000 mg in 24 hours. You may add 1 extra strength Tylenol each time you take your hydrocodone/acetaminophen tablet. Drink plenty of fluids. You may use dprj-hku-gngsaay Icy Hot with lidocaine patches, Aspercreme with lidocaine patches, Salonpas with lidocaine patches or similar items to area of concern per package directions. Scripts Prednisone (Prednisone) 20 Mg Tab 40 MG PO DAILY, #12 TAB 0 Refills Prov: RIVAS MAYS MD 07/31/20 Copy Copies To 1: JOHANNA PERAZA MD, TIMOTHY D MD Jul 31, 2020 10:48
== END 2020-07-31 11:13 | disposition home or self-care (01) ==
LOC: EDUNIT# 10:09 → ER 10:10
DX: M54.12 Radiculopathy, cervical region (principal); E66.9 Obesity, unspecified; G89.29 Other chronic pain; I10 Essential (primary) hypertension; F32.9 Major depressive disorder, single episode, unspecified; M54.9 Dorsalgia, unspecified; Z68.42 Body mass index [BMI] 45.0-49.9, adult; Z82.61 Family history of arthritis; Z82.49 Family history of ischemic heart disease and other diseases of the circulatory system; Z80.1 Family history of malignant neoplasm of trachea, bronchus and lung; Z87.891 Personal history of nicotine dependence; Z79.52 Long term (current) use of systemic steroids; Z79.891 Long term (current) use of opiate analgesic
CPT/HCPCS: 99284

== ENCOUNTER 2020-10-29 13:52 | Emergency (ER) | payer MEDICARE, MEDICAID ==
[~2020-10-29] VITALS: Ht 157.5 cm; Wt 260.0 kg
[2020-10-29 14:24] VITALS: BP 152/79
--- NOTE | 2020-10-29 14:40 | ED Back Pain ---
General Stated Complaint: LOW BACK PAIN, PAIN DOWN LEFT LEG Source of Information: Patient Exam Limitations: No Limitations History of Present Illness Date Seen by Provider: Oct 29, 2020 Time Seen by Provider: 14:41 Initial Comments This is a healthy-appearing 35-year-old female presents to ER with complaints of chronic low back pain and sciatica. States this is the same pain she always has when her back "flares up". Current episode started approximately 4-5 days ago. No trauma or injury. States she was unable to get into her PCP due to the holiday. States she has Hydrocodone at home and they are not helping with the pain. Has tried heat and muscle creams without relief. States steroids usually help to most. Reports last steroid use over a month ago. No fevers, chills, cough, shortness of breath, nausea/vomiting, diarrhea, abdominal pain, numbness in groin/buttocks, or loss of bowel/bladder control. Allergies and Home Medications Allergies Coded Allergies: No Known Allergies (Verified Allergy, Unknown, 07/09/18) Home Medications Acetaminophen 500 Mg Tablet, 500-1,000 MG PO Q6H PRN for PAIN-MILD, (Reported) Budesonide 3 Mg Capdr...er, 9 MG PO DAILY, (Reported) TAKES 3 (3MG) CAPSULES Estradiol 1 Mg Tablet, 1 MG PO DAILY, (Reported) Gabapentin 300 Mg Capsule, 900 MG PO TID, (Reported) TAKES 3 (300MG) CAPSULES Hydrocodone Bit/Acetaminophen 1 Each Tablet, 1 TAB PO Q6H PRN for PAIN-MODERATE, (Reported) Lisinopril/Hydrochlorothiazide 1 Each Tablet, 1 EACH PO DAILY, (Reported) Multivitamin 1 Each Tablet, 1 TAB PO DAILY, (Reported) Prednisone 20 Mg Tab, 40 MG PO DAILY Prescribed by: MIRELA HUANG on 07/09/202037 Prednisone 20 Mg Tab, 40 MG PO DAILY Prescribed by: RIVAS MAYS on 07/31/20 104 Prednisone 20 Mg Tab, 40 MG PO DAILY Prescribed by: JANNIE REYNOSO on 10/29/20 1448 Simvastatin 40 Mg Tablet, 40 MG PO HS, (Reported) Vilazodone Hydrochloride 40 Mg Tablet, 40 MG PO DAILY, (Reported) Patient Home Medication List Home Medication List Reviewed: Yes Review of Systems Constitutional: no symptoms reported EENTM: no symptoms reported Respiratory: no symptoms reported Cardiovascular: no symptoms reported Gastrointestinal: no symptoms reported Genitourinary: no symptoms reported Musculoskeletal: see HPI Skin: no symptoms reported Psychiatric/Neurological: No Symptoms Reported Past Igpqwkj-Nhhqcb-Fgwrss Hx Patient Social History Type Used: Cigarettes Former Smoker, Quit: March 06, 2019 2nd Hand Smoke Exposure: No Recent Foreign Travel: No Contact w/Someone Who Travel: No Recent Hopitalizations: No Immunizations Up To Date Tetanus Booster (TDap): Unknown PED Vaccines UTD: No Date of Pneumonia Vaccine: Jun 28, 2011 Seasonal Allergies Seasonal Allergies: No Past Medical History Surgeries: Yes (diskectomy; laminectomy, back sx) Appendectomy, Gallbladder, Hysterectomy Respiratory: Yes Pneumonia Cardiac: Yes Chronic Edema/Swelling, Hypertension Neurological: No Reproductive Disorders: No (HAS 3 GROWN CHILDREN) Female Reproductive Disorders: Denies Sexually Transmitted Disease: No HIV/AIDS: No Genitourinary: No Gastrointestinal: Yes Polyps Musculoskeletal: Yes Back Injury, Chronic Back Pain Endocrine: No HEENT: No Cancer: No Psychosocial: Yes Depression Integumentary: No Blood Disorders: No Adverse Reaction/Blood Tranf: No Family Medical History Arthritis Asthma Cardiovascular disease Colon cancer Completed stroke FH: colon cancer Hypertension Myocardial infarction Psychosocial problem Respiratory disorder No Pertinent Family Hx Physical Exam Vital Signs Vital Signs - First Documented 10/29/20 14:24 Pulse 76 Resp 16 B/P (MAP) 152/79 (103) Pulse Ox 96 O2 Delivery Room Air Capillary Refill : Height, Weight, BMI Height: 5'5.00" Weight: 248lbs. 2.0oz. 112.727046xp; 48.00 BMI Method:Stated General Appearance: No Apparent Distress, WD/WN HEENT: PERRL/EOMI, Pharynx Normal, Moist Mucous Membranes Neck: Full Range of Motion, Normal Inspection Cardiovascular: Regular Rate, Rhythm, Normal Peripheral Pulses Respiratory: Lungs Clear, Normal Breath Sounds Back: Normal Inspection, No Vertebral Tenderness, Other (pain in left lumbar and SI region with palpation, no swelling or masses. Normal gait. ) Extremity: Normal Capillary Refill, Normal Inspection, Normal Range of Motion, No Pedal Edema Neurologic/Psychiatric: Alert, Oriented x3, No Motor/Sensory Deficits, Normal Mood/Affect Skin: Normal Color, Warm/Dry Progress/Results/Core Measures Results/Orders My Orders Orders - EDGARDO,STORMY D MEDICAL RECORD LIBRARIANS TEACHER Prednisone Tablet (Deltasone Tablet) (10/29/20 14:45) Ketorolac Injection (Toradol Injection) (10/29/20 14:45) Orphenadrine Inj (Ed Only) (Norflex Inje (10/29/20 14:45) Vital Signs/I&O 10/29/20 14:24 Pulse 76 Resp 16 B/P (MAP) 152/79 (103) Pulse Ox 96 O2 Delivery Room Air Progress Progress Note : Progress Note This is a chronic issue that was treated with Prednisone, Toradol, and Norflex in her last ED visit, which improved her symptoms. She was treated with Norflex 60mg and Toradol IM. First dose of Prednisone given in ED. Reviewed discharge plan and she is agreeable with plan. Departure Impression Primary Impression: Sciatica Disposition: HOME, SELF-CARE Condition: Improved Departure-Patient Inst. Decision time for Depature: 11:00 Referrals: ADÁN FARFAN MD (PCP/Family) Primary Care Physician Patient Instructions: Sciatica Add. Discharge Instructions: Plan: 1. Discharge home. 2. Rest, ice or heat 20 minutes at a time. 3. May take Tylenol or Ibuprofen as needed for pain per package directions. Do not take more than directed. 4. Take Prednisone as directed, take with food. 5. Follow up with your primary care provider if symptoms persist. 6. Return for any new or concerning symptoms. Scripts Prednisone (Prednisone) 20 Mg Tab 40 MG PO DAILY for 5 Days, #10 TAB 0 Refills Prov: JANNIE REYNOSO MEDICAL RECORD LIBRARIANS TEACHER 10/29/20 JANNIE REYNOSO MEDICAL RECORD LIBRARIANS TEACHER Oct 29, 2020 14:40
[2020-10-29] MEDS ORDERED: predniSONE 20 MG TAB PO ONE (14:45)
[2020-10-29] MEDS ORDERED: ORPHENADRINE 60 MG/2 ML (NORFLEX) AMP (ED ONLY) IM ONE (14:45)
[2020-10-29] MEDS ORDERED: KETOROLAC 60 MG/2 ML VIAL IM ONE (14:45)
[2020-10-29] MEDS ORDERED: PRD20T PO (14:48)
== END 2020-10-29 15:03 | disposition home or self-care (01) ==
LOC: EDUNIT# 13:52 → ER 13:56
DX: M54.42 Lumbago with sciatica, left side (principal); I10 Essential (primary) hypertension; G89.29 Other chronic pain; M54.9 Dorsalgia, unspecified; F32.9 Major depressive disorder, single episode, unspecified; Z82.61 Family history of arthritis; Z80.0 Family history of malignant neoplasm of digestive organs; Z82.49 Family history of ischemic heart disease and other diseases of the circulatory system; Z87.891 Personal history of nicotine dependence; Z79.52 Long term (current) use of systemic steroids; Z79.891 Long term (current) use of opiate analgesic
CPT/HCPCS: 99284

== ENCOUNTER → 2020-12-27 | Outpatient (CLI) | payer MEDICARE, MEDICAID ==
--- NOTE | 2020-12-27 13:09 | Diagnostic Imaging Report ---
INDICATION: Routine screening. COMPARISON: 01/25/2016 and 05/07/2014. TECHNIQUE: 2D and 3D bilateral screening mammography was performed with CAD. FINDINGS: Scattered fibroglandular densities are identified bilaterally. The circumscribed nodule in the outer right breast is stable. No spiculated mass or malignant appearing microcalcifications are seen. The axillae are unremarkable. IMPRESSION: No mammographic features suspicious for malignancy are identified. ACR BI-RADS Category 2: Benign findings. Result letter will be mailed to the patient. Note: At least 10% of breast cancer is not imaged by mammography. Dictated by: Dictated on workstation # [id number]
== END ==
LOC: RAD 10:08
PROVIDERS: ATTEND Internal Medicine
DX: Z12.31 Encounter for screening mammogram for malignant neoplasm of breast (principal)
CPT/HCPCS: 77063; 77067

== ENCOUNTER 2021-08-14 07:10 | Emergency (ER) | payer MEDICARE, MEDICAID ==
[~2021-08-14] VITALS: Ht 160 cm; Wt 117.9 kg
[2021-08-14 07:17] VITALS: BP 136/76
--- OUTSIDE RECORDS SUMMARY | 2021-08-14 07:17 | XMS REPORT | Clinical Summary ---
Author Author [facility] Address Unknown Phone Unavailable Care Team Providers Care Applications Support Analyst Name Role Phone Marcela Flower MD PCP Pieter Soto MD 21 Unavailable Jovanni Felix MD Unavailable Mychart, Generic Provider Unavailable Unavailable Myranda Ritter TIMBER PACKER-HUMAN RESOURCES ASSISTANT Unavailable [phone] Outpatient, Radiologist Unavailable Unavailable Gus Gonzalez MD Unavailable Source Comments Some departments are not documenting in the electronic medical record. If you d o not see the information that you expected, contact Release of Information in [facility] Information Management department at [phone] for further assistan ce in locating additional records.[facility] Allergies Comments Active Allergy Reactions Severity Noted Date Ringing in ear and stumbling Oxycodone-Acetaminophen DIZZINESS Low 2014 Hydrocodone-Acetaminophen VOMITING Low 07/29 Medications End Date Status Medication Sig Dispensed Refills Start Date Active gabapentin (NEURONTIN) Take 300 mg 0 300 mg capsule by mouth three times daily. Active buPROPion SR(+) Take 150 mg 0 (WELLBUTRIN-SR) 150 mg by mouth tablet twice daily. Active simvastatin (ZOCOR) 40 mg Take 40 mg by 0 tablet mouth at bedtime daily. Active lisinopril/hydrochlorothi Take by 0 azide (ZESTORETIC) mouth daily. 10/12.5 mg tablet Active MELATONIN/PYRIDOXINE HCL Take 1 mg by 0 (B6) (MELATONEX PO) mouth daily. Active HYDROcodone/acetaminophen Take 1 Tab by 0 (NORCO; VICODIN) 5-325 mg mouth every 4 tablet hours as needed for Pain Active acetaminophen (TYLENOL) Take 500 mg 0 500 mg tablet by mouth every 6 hours as needed for Pain. Active baclofen (LIORESAL) 20 mg Take 20 mg by 0 tablet mouth three times daily. Active MULTIVITAMIN PO Take by 0 mouth daily. Active estrogens, conjugated Take 0.625 mg 0 (PREMARIN) 0.625 mg by mouth tablet daily. Active Desvenlafaxine (PRISTIQ) Take by 0 100 mg Tb24 mouth. Active ibuprofen (MOTRIN) 800 mg Take 800 mg 0 tablet by mouth every 6 hours as needed for Pain. Active naproxen (NAPROSYN) 500 Take 500 mg 0 mg tablet by mouth twice daily with meals. 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 Family History Medical History Relation Name Comments Asthma Brother Arthritis-osteo Father Asthma Father High Cholesterol Father Hypertension Father Cancer-Colon Maternal Aunt Cancer-Lung Maternal Aunt Cancer-Colon Maternal Grandmother Cancer-Colon Mother Depression Mother Arthritis-osteo Paternal Grandfather Arthritis-rheumatoid Paternal Grandfather Cancer-Colon Paternal Grandfather High Cholesterol Paternal Grandfather Hypertension Paternal Grandfather Stroke Paternal Grandfather Relation Name Status Comments Brother Father Maternal Aunt Maternal Grandmother Mother Paternal Grandfather Social History Date Tobacco Use Types Packs/Day Years Used Current Every Day Smoker Cigarettes 1.5 20 Comments Alcohol Use Standard Drinks/Week No 0 (1 standard drink = 0.6 o z pure alcohol) Sex Assigned at Date Recorded Not on file Last Filed Vital Signs Reading Time Taken Comments Vital Sign 131/79 12/09/2015 8:28 AM OFFENDER JOB RETENTION SPECIALIST Blood Pressure 73 12/09/2015 8:28 AM OFFENDER JOB RETENTION SPECIALIST Pulse 36.7 C (98 F) 12/09/2015 8:28 AM OFFENDER JOB RETENTION SPECIALIST Temperature - - Respiratory Rate 98% 12/09/2015 8:28 AM OFFENDER JOB RETENTION SPECIALIST Oxygen Saturation - - Inhaled Oxygen Concentration 104.3 kg (230 lb) 12/09/2015 8:28 AM OFFENDER JOB RETENTION SPECIALIST Weight 162.6 cm (5' 4") 12/09/2015 8:28 AM OFFENDER JOB RETENTION SPECIALIST Height 39.48 12/09/2015 8:28 AM OFFENDER JOB RETENTION SPECIALIST Body Mass Index Plan of Treatment Health Maintenance Due Date Last Done Comments MEDICARE ANNUAL WELLNESS 1965 VISIT HIV SCREENING 1980 DTAP/TDAP VACCINES (1 - 1983 Tdap) HEPATITIS C SCREENING 1983 PHYSICAL (COMPREHENSIVE) 1983 EXAM CERVICAL CANCER SCREENING 1986 BREAST CANCER SCREENING 2005 COLORECTAL CANCER 2015 SCREENING SHINGLES RECOMBINANT 2015 VACCINE (1 of 2) INFLUENZA VACCINE 05/29/2021 Results Not on filefrom Last 3 Months Insurance Type Payer Benefit Subscriber ID Effective Phone Address Plan / Dates Group Medicare MEDICARE MEDICARE [id number] [id number] PART A AND resent B Advance Directives Patient Director Perioperative Explanation Type Date Recorded Advance 08/05/2015 1:01 PM Directive/DPOA
--- OUTSIDE RECORDS SUMMARY | 2021-08-14 07:17 | XMS REPORT | Clinical Summary ---
Author Author [facility] Organization [facility] Address Unknown Phone Unavailable Care Team Providers Care Die Operator Name Role Phone Marcela Flower MD PCP Allergies Comments Active Allergy Reactions Severity Noted Date Oxycodone-Acetaminophen Nausea Only 06/03/2014 Sulfa (Sulfonamide Itching 06/03/2014 Antibiotics) Medications End Date Status Medication Sig Dispensed Refills Start Date Active diclofenac (VOLTAREN) 25 Take 40 mg by 0 MG EC tablet mouth 2 (two) times a day. Active morphine (MSIR) 15 MG Take 15 mg by 0 tablet mouth 2 (two) times a day as needed for pain. Active baclofen (LIORESAL) 20 MG Take 20 mg by 0 tablet mouth 3 (three) times a day. Active simvastatin (ZOCOR) 40 MG Take 40 mg by 0 tablet mouth nightly. Active estrogens, conjugated, Take 0.625 mg 0 (PREMARIN) 0.625 MG by mouth tablet daily. Take daily for 21 days then do not take for 7 days. Active docusate sodium (COLACE) Take 100 mg 0 100 MG capsule by mouth daily. Active acetaminophen (TYLENOL) Take 500 mg 0 500 MG tablet by mouth every 6 (six) hours as needed for pain. Active gabapentin (NEURONTIN) Take 600 mg 0 400 MG capsule by mouth 4 (four) times a day. Active HYDROcodone-acetaminophen Take 1 tablet 0 (NORCO) 5-325 mg per by mouth as tablet needed for pain. Active desvenlafaxine succinate Take 50 mg by 0 (PRISTIQ) 50 MG 24 hr mouth daily. tablet Active ibuprofen (ADVIL,MOTRIN) Take 800 mg 0 800 MG tablet by mouth every 6 (six) hours as needed for pain. Active lisinopril-hydrochlorothi Take by mouth 0 azide (ZESTORETIC daily. 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 ICD-10 conversion Neck pain 05/08/2014 Family History Medical History Relation Name Comments Coronary artery disease Father Cancer Mother Relation Name Status Comments Father Mother Social History Date Tobacco Use Types Packs/Day Years Used Heavy Tobacco Smoker Cigarettes 1 10 Tobacco Cessation: Ready to Quit: Yes Comments Alcohol Use Standard Drinks/Week No 0 (1 standard drink = 0.6 o z pure alcohol) Sex Assigned at Date Recorded Not on file Last Filed Vital Signs Reading Time Taken Comments Vital Sign 116/89 06/28/2015 10:20 AM CDT Blood Pressure 72 06/28/2015 10:20 AM CDT Pulse 36.6 C (97.9 F) 06/28/2015 9:21 AM CDT Temperature 16 06/28/2015 10:20 AM CDT Respiratory Rate 98% 06/28/2015 10:20 AM CDT Oxygen Saturation - - Inhaled Oxygen Concentration 106.6 kg (235 lb) 12/16/2014 2:46 PM GROUNDS CLEANER Weight 165.1 cm (5' 5") 12/16/2014 2:46 PM GROUNDS CLEANER Height 39.11 12/16/2014 2:46 PM GROUNDS CLEANER Body Mass Index Plan of Treatment Not on file Results Not on filefrom Last 3 Months Insurance Type Payer Benefit Subscriber ID Effective Phone Address Plan / Dates Group Medicare MEDICARE MEDICARE [id number] 2008-P [place] PART [place], [place] [id number] 2015- MEDICAID Present Marleny Amezquita V Personal/F Self [address] [place] (Home) [place] [id number]
[2021-08-14] MEDS ORDERED: FLUORESCEIN (FLUOR-I-STRIPS) 1 MG STRP ONE (07:21)
[2021-08-14] MEDS ORDERED: BSS 15 ML ONE (07:22)
[2021-08-14] MEDS ORDERED: TETRACAINE 0.5% OPHTH SOLN 4 ML BTL (SINGLE DOSE ONLY) ONE (07:22)
[2021-08-14] MEDS ORDERED: TETRACAINE 0.5% OPHTH SOLN 4 ML BTL (SINGLE DOSE ONLY) OU ONE (07:30)
[2021-08-14] MEDS ORDERED: BSS 15 ML IR ONE ×2 (07:30→07:45)
[2021-08-14] MEDS ORDERED: FLUORESCEIN (FLUOR-I-STRIPS) 1 MG STRP OU ONE (07:30)
[2021-08-14] MEDS ORDERED: RX-TOBRAMYCIN (TOBREX) 0.3% OP OINT 3.5 GM TUBE ONE (07:43)
--- NOTE | 2021-08-14 07:54 | ED EENT ---
History of Present Illness General Chief Complaint: Eye Problems Stated Complaint: FB IN LEFT EYE Nursing Triage Note: PT AMB TO RM 6 WITH COMPLAINT OF SOMETHING IN LEFT EYE. STATES SHE WAS PICKING MASCARA OFF AND FEELS SOME WENT IN HER EYE AND SHE SCRATCHED IT. Allergies and Home Medications Allergies Coded Allergies: No Known Allergies (Verified Allergy, Unknown, 07/09/18) Patient Home Medication List Acetaminophen (Tylenol Extra Strength) 500 Mg Tablet, 500-1,000 MG PO Q6H PRN for PAIN-MILD, (Reported) Entered as Reported by: MICHAEL JENKINS on 07/09/18 1306 Budesonide (Budesonide EC) 3 Mg Capdr...er, 9 MG PO DAILY, (Reported) Entered as Reported by: MICHAEL JENKINS on 07/09/18 1247 Estradiol (Estradiol Tablet) 1 Mg Tablet, 1 MG PO DAILY, (Reported) Entered as Reported by: MICHAEL JENKINS on 07/09/18 1247 Gabapentin (Gabapentin) 300 Mg Capsule, 900 MG PO TID, (Reported) Entered as Reported by: MICHAEL JENKINS on 07/09/18 1256 Hydrocodone Bit/Acetaminophen (Lortab 5 Mg Tablet) 1 Each Tablet, 1 TAB PO Q6H PRN for PAIN-MODERATE, (Reported) Entered as Reported by: MICHAEL JENKINS on 07/09/18 1247 Lisinopril/Hydrochlorothiazide (Lisinopril-Hctz 20-12.5 mg Tab) 1 Each Tablet, 1 EACH PO DAILY, (Reported) Entered as Reported by: OLEKSANDR NEWELL on 03/08/20 1548 Multivitamin (Daily Multiple Vitamin) 1 Each Tablet, 1 TAB PO DAILY, (Reported) Entered as Reported by: MICHAEL JENKINS on 07/09/18 1306 Prednisone (Prednisone) 20 Mg Tab, 40 MG PO DAILY Prescribed by: MIRELA HUANG on 07/09/202037 Prednisone (Prednisone) 20 Mg Tab, 40 MG PO DAILY Prescribed by: RIVAS MAYS on 07/31/20 1048 Prednisone (Prednisone) 20 Mg Tab, 40 MG PO DAILY Prescribed by: JANNIE REYNOSO on 10/29/20 1448 Simvastatin (Simvastatin) 40 Mg Tablet, 40 MG PO HS, (Reported) Entered as Reported by: MICHAEL JENKINS on 07/09/18 1247 Vilazodone Hydrochloride (Viibryd) 40 Mg Tablet, 40 MG PO DAILY, (Reported) Entered as Reported by: OLEKSANDR NEWELL on 03/08/20 1548 Past Qfofnyl-Twjlle-Fksnde Hx Patient Social History Tobacco Use?: No Use of E-Cig and/or Vaping dev: No Substance use?: No Alcohol Use?: No Pt feels they are or have been: No Immunizations Up To Date Tetanus Booster (TDap): Unknown PED Vaccines UTD: No First/Initial COVID19 Vaccinat: DECEMBER 2020 Second COVID19 Vaccination Wes: JANUARY 2021 COVID19 Vaccine Sales Project Engineer: MODERNA Seasonal Allergies Seasonal Allergies: No Past Medical History Surgeries: Yes (diskectomy; laminectomy, back sx) Appendectomy, Gallbladder, Hysterectomy Respiratory: Yes Pneumonia Cardiac: Yes Chronic Edema/Swelling, Hypertension Neurological: No Reproductive Disorders: No (HAS 3 GROWN CHILDREN) Female Reproductive Disorders: Denies Sexually Transmitted Disease: No HIV/AIDS: No Genitourinary: No Gastrointestinal: Yes Polyps Musculoskeletal: Yes Back Injury, Chronic Back Pain Endocrine: No HEENT: No Cancer: No Psychosocial: Yes Depression Integumentary: No Blood Disorders: No Adverse Reaction/Blood Tranf: No Family Medical History Arthritis Asthma Cardiovascular disease Colon cancer Completed stroke FH: colon cancer Hypertension Myocardial infarction Psychosocial problem Respiratory disorder No Pertinent Family Hx Physical Exam Vital Signs Vital Signs - First Documented 08/14/21 07:17 Temp 36.0 Pulse 74 Resp 16 B/P (MAP) 136/76 (96) Pulse Ox 96 O2 Delivery Room Air Height, Weight, BMI Height: 5'5.00" Weight: 248lbs. 2.0oz. 112.102700hh; 46.00 BMI Method:Stated Progress/Results/Core Measures Results/Orders My Orders Orders - ELZA FILNEY MD Tetracaine 0.5% Ophth Marilynn Sdv (Tetracai (08/14/21 07:30) Fluorescein Strips ([place]-Z-Lvcoua) (08/14/21 07:30) Balanced Salt Irrigation Soln (Bss Irrig (08/14/21 07:30) Fluorescein Strips (Zerlb-H-Nvdiae) (08/14/21 07:21) Tetracaine 0.5% Ophth Marilynn Sdv (Tetracai (08/14/21 07:22) Balanced Salt Irrigation Soln (Bss Irrig (08/14/21 07:22) Balanced Salt Irrigation Soln (Bss Irrig (08/14/21 07:45) Erythromycin Ophth Oint (Erythromycin Op (08/14/21 14:00) Rx-Tobramycin Ophth Oint (Rx-Tobrex Opht (08/14/21 07:43) Medications Given in ED Current Medications Medications Dose Ordered Sig/Shannan Route Start Time Stop Time Status Last Admin Dose Admin Balanced Salt Solution 15 ml ONCE ONCE IR 08/14/21 07:30 08/14/21 07:31 DC 08/14/21 07:33 15 ML Balanced Salt Solution 15 ml ONCE ONCE IR 08/14/21 07:45 08/14/21 07:46 DC 08/14/21 07:50 15 ML Fluorescein Sodium 1 mg ONCE ONCE OU 08/14/21 07:30 08/14/21 07:31 DC 08/14/21 07:33 1 MG Tetracaine HCl 4 ml ONCE ONCE OU 08/14/21 07:30 08/14/21 07:31 DC 08/14/21 07:33 4 ML Vital Signs/I&O 08/14/21 07:17 Temp 36.0 Pulse 74 Resp 16 B/P (MAP) 136/76 (96) Pulse Ox 96 O2 Delivery Room Air Blood Pressure Mean: 96 Departure Impression Primary Impression: Corneal abrasion, left Qualified Codes: S05.02XA - Injury of conjunctiva and corneal abrasion without foreign body, left eye, initial encounter Disposition: 01 HOME, SELF-CARE Condition: Improved Departure-Patient Inst. Decision time for Depature: 07:52 Referrals: ADÁN FARFAN MD (PCP/Family) Primary Care Physician Patient Instructions: Corneal Abrasion Add. Discharge Instructions: You may use Tylenol (acetaminophen) and/or ibuprofen for pain. You may additionally use the saline with diluted tetracaine 1 to 2 drops per hour for lubrication and pain control. Do not use these drops more often as you may cause damage if you overuse the tetracaine. Apply erythromycin antibiotic ointment to the backside of your lower eyelid every [address] Wasserman's office 1st thing in the morning to arrange a follow-up exam. Call with questions or concerns or if your symptoms are not controlled. Return to the ER if you have more concerning symptoms or issues that need urgent attention. Corneal abrasions tend to heal quickly but expect some degree of pain for the next several days. Do not wear contact lenses. All discharge instructions reviewed with patient and/or family. Voiced understanding. ELZA FINLEY MD Aug 14, 2021 07:54
[2021-08-14] MEDS ORDERED: ERYTHROMYCIN OPHTH OINT 1 GM (SINGLE USE) TUBE OP SCH (14:00)
== END 2021-08-14 08:03 | disposition home or self-care (01) ==
LOC: EDUNIT# 07:10 → ER 07:13
DX: S05.02XA Injury of conjunctiva and corneal abrasion without foreign body, left eye, initial encounter (principal); I10 Essential (primary) hypertension; F32.9 Major depressive disorder, single episode, unspecified; G89.29 Other chronic pain; M54.9 Dorsalgia, unspecified; Z79.891 Long term (current) use of opiate analgesic; Z79.899 Other long term (current) drug therapy; X58.XXXA Exposure to other specified factors, initial encounter
CPT/HCPCS: 99281

== ENCOUNTER 2021-08-28 15:35 | Emergency (ER) | payer MEDICARE, MEDICAID ==
[~2021-08-28] VITALS: Ht 160 cm; Wt 118.0 kg
--- NOTE | 2021-08-28 15:58 | ED Chest Pain ---
General Chief Complaint: Chest Pain Stated Complaint: CP/JAW PAIN Source: patient Exam Limitations: no limitations (RIVAS MAYS MD) History of Present Illness Date Seen by Provider: Aug 28, 2021 Time Seen by Provider: 15:42 Initial Comments Here with report of chest pain and jaw pain. Initially started in the right jaw then went to the left jaw then to the chest and then to the back. States that it is an aching/grabbing pain. She does admit that about an hour ago she started having back pain so she took the ibuprofen that she is prescribed (800 mg) as well as half of a tizanidine. Later have the other symptoms described above. Denies nausea, sweating, breathing problems. She does have history of hiatal hernia but also has history of hypertension and high cholesterol and is obese. Timing/Duration: 1/2 hour, 1 hour, getting worse Severity/Quality: moderate, aching, tightness Location: central Radiation: jaw, back Prior CP/Workup: no prior cardiac workup ASA po TRACTOR TECHNICIAN: No NTG SL TRACTOR TECHNICIAN: No Associated Symptoms: back pain; No nausea/vomiting, No shortness of breath, No weakness (RIVAS MAYS MD) Allergies and Home Medications Allergies Coded Allergies: No Known Allergies (Verified Allergy, Unknown, 07/09/18) Sulfa (Sulfonamide Antibiotics) (Verified Allergy, Unknown, 08/14/21) acetaminophen (Verified Allergy, Unknown, 08/14/21) oxycodone (Verified Allergy, Unknown, 08/14/21) Patient Home Medication List Home Medication List Reviewed: Yes (RIVAS MAYS MD) Acetaminophen (Tylenol Extra Strength) 500 Mg Tablet, 500-1,000 MG PO Q6H PRN for PAIN-MILD, (Reported) Entered as Reported by: MICHAEL JENKINS on 07/09/18 1306 Budesonide (Budesonide EC) 3 Mg Capdr...er, 9 MG PO DAILY, (Reported) Entered as Reported by: MICHAEL JENKINS on 07/09/18 1247 Estradiol (Estradiol Tablet) 1 Mg Tablet, 1 MG PO DAILY, (Reported) Entered as Reported by: MICHAEL JENKINS on 07/09/18 1247 Gabapentin (Gabapentin) 300 Mg Capsule, 900 MG PO TID, (Reported) Entered as Reported by: MICHAEL JENKINS on 07/09/18 1256 Hydrocodone Bit/Acetaminophen (Lortab 5 Mg Tablet) 1 Each Tablet, 1 TAB PO Q6H PRN for PAIN-MODERATE, (Reported) Entered as Reported by: MICHAEL JENKINS on 07/09/18 1247 Lisinopril/Hydrochlorothiazide (Lisinopril-Hctz 20-12.5 mg Tab) 1 Each Tablet, 1 EACH PO DAILY, (Reported) Entered as Reported by: OLEKSANDR NEWELL on 03/08/20 1548 Multivitamin (Daily Multiple Vitamin) 1 Each Tablet, 1 TAB PO DAILY, (Reported) Entered as Reported by: MICHAEL JENKINS on 07/09/18 1306 Prednisone (Prednisone) 20 Mg Tab, 40 MG PO DAILY Prescribed by: MIRELA HUANG on 07/09/202037 Prednisone (Prednisone) 20 Mg Tab, 40 MG PO DAILY Prescribed by: RIVAS MAYS on 07/31/20 1048 Prednisone (Prednisone) 20 Mg Tab, 40 MG PO DAILY Prescribed by: JANNIE REYNOSO on 10/29/20 1448 Simvastatin (Simvastatin) 40 Mg Tablet, 40 MG PO HS, (Reported) Entered as Reported by: MICHAEL JENKINS on 07/09/18 1247 Vilazodone Hydrochloride (Viibryd) 40 Mg Tablet, 40 MG PO DAILY, (Reported) Entered as Reported by: OLEKSANDR NEWELL on 03/08/20 1548 Review of Systems Review of Systems Constitutional: see HPI; No chills, No fever EENTM: No Symptoms Reported Respiratory: Denies Cough, Denies Shortness of Air Cardiovascular: Chest Pain; Denies Edema Gastrointestinal: Denies Nausea, Denies Vomiting Genitourinary: No Symptoms Reported Musculoskeletal: back pain, muscle pain Skin: no symptoms reported Psychiatric/Neurological: Anxiety; Denies Headache (RIVAS MAYS MD) All Other Systems Reviewed Negative Unless Noted: Yes (RIVAS MAYS MD) Past Eihrtpo-Wsfnxy-Vaouzb Hx Patient Social History Tobacco Use?: No Smoking Status: Former Smoker Substance use?: No Alcohol Use?: No (RIVAS MAYS MD) Immunizations Up To Date Tetanus Booster (TDap): Unknown PED Vaccines UTD: No First/Initial COVID19 Vaccinat: DECEMBER 2020 Second COVID19 Vaccination Wes: JANUARY 2021 (RIVAS MAYS MD) Seasonal Allergies Seasonal Allergies: No (RIVAS MAYS MD) Past Medical History Surgeries: Yes (diskectomy; laminectomy, back sx) Appendectomy, Gallbladder, Hysterectomy Respiratory: Yes Pneumonia Cardiac: Yes Chronic Edema/Swelling, Hypertension Neurological: No Reproductive Disorders: No (HAS 3 GROWN CHILDREN) Female Reproductive Disorders: Denies Sexually Transmitted Disease: No HIV/AIDS: No Genitourinary: No Gastrointestinal: Yes Polyps Musculoskeletal: Yes Back Injury, Chronic Back Pain Endocrine: No HEENT: No Cancer: No Psychosocial: Yes Depression Integumentary: No Blood Disorders: No Adverse Reaction/Blood Tranf: No (RIVAS MAYS MD) Family Medical History Reviewed Nursing Family Hx (RIVAS MAYS MD) Arthritis Asthma Cardiovascular disease Colon cancer Completed stroke FH: colon cancer Hypertension Myocardial infarction Psychosocial problem Respiratory disorder No Pertinent Family Hx (RIVAS MAYS MD) Physical Exam Vital Signs Vital Signs - First Documented 08/28/21 15:43 Temp 36.1 Pulse 70 Resp 20 B/P (MAP) 108/85 (93) Pulse Ox 97 O2 Delivery Room Air (KUMAR ALMARAZ) Vital Signs Capillary Refill : Less Than 3 Seconds (RIVAS MAYS MD) Height, Weight, BMI Height: 5'5.00" Weight: 248lbs. 2.0oz. 112.689822uc; 46.00 BMI Method:Stated General Appearance: No Apparent Distress, Anxious, Obese HEENT: PERRL/EOMI, Pharynx Normal Neck: Non Tender, Supple Respiratory: Lungs Clear, Normal Breath Sounds Cardiovascular: Regular Rate, Rhythm, No Murmur Gastrointestinal: Soft, Tenderness (Mild epigastric) Extremity: Normal Range of Motion, Non Tender, No Pedal Edema Neurologic/Psychiatric: Alert, Oriented x3 Skin: Normal Color, Warm/Dry (RIVAS MAYS MD) Progress/Results/Core Measures Results/Orders Lab Results Laboratory Tests Test 08/28/21 15:51 08/28/21 19:00 Range/Units White Blood Count 10.9 4.3-11.0 10^3/uL Red Blood Count 3.71 L 3.80-5.11 10^6/uL Hemoglobin 10.5 L 11.5-16.0 g/dL Hematocrit 34 L 35-52 % Mean Corpuscular Volume 91 80-99 fL Mean Corpuscular Hemoglobin 28 25-34 pg Mean Corpuscular Hemoglobin Concent 31 L 32-36 g/dL Red Cell Distribution Width 14.0 10.0-14.5 % Platelet Count 459 H 130-400 10^3/uL Mean Platelet Volume 9.7 9.0-12.2 fL Immature Granulocyte % (Auto) 0 % Neutrophils (%) (Auto) 52 42-75 % Lymphocytes (%) (Auto) 38 12-44 % Monocytes (%) (Auto) 7 0-12 % Eosinophils (%) (Auto) 3 0-10 % Basophils (%) (Auto) 0 0-10 % Neutrophils # (Auto) 5.7 1.8-7.8 10^3/uL Lymphocytes # (Auto) 4.1 H 1.0-4.0 10^3/uL Monocytes # (Auto) 0.8 0.0-1.0 10^3/uL Eosinophils # (Auto) 0.3 0.0-0.3 10^3/uL Basophils # (Auto) 0.0 0.0-0.1 10^3/uL Immature Granulocyte # (Auto) 0.0 0.0-0.1 10^3/uL Prothrombin Time 14.0 12.2-14.7 SEC INR Comment 1.0 0.8-1.4 Activated Partial Thromboplast Time 33 24-35 SEC D-Dimer 0.25 0.00-0.49 UG/ML Sodium Level 137 135-145 MMOL/L Potassium Level 3.7 3.6-5.0 MMOL/L Chloride Level 101 98-107 MMOL/L Carbon Dioxide Level 24 21-32 MMOL/L Anion Gap 12 5-14 MMOL/L Blood Urea Nitrogen 17 7-18 MG/DL Creatinine 0.70 0.60-1.30 MG/DL Estimat Glomerular Filtration Rate 87 BUN/Creatinine Ratio 24 Glucose Level 98 70-105 MG/DL Calcium Level 9.2 8.5-10.1 MG/DL Corrected Calcium 9.6 8.5-10.1 MG/DL Magnesium Level 1.9 1.6-2.4 MG/DL Total Bilirubin 0.3 0.1-1.0 MG/DL Aspartate Amino Transf (AST/SGOT) 16 5-34 U/L Alanine Aminotransferase (ALT/SGPT) 19 0-55 U/L Alkaline Phosphatase 60 40-136 U/L Myoglobin 44.4 10.0-92.0 NG/ML Troponin I < 0.028 < 0.028 <0.028 NG/ML Total Protein 6.1 L 6.4-8.2 GM/DL Albumin 3.5 3.2-4.5 GM/DL Lipase 16 8-78 U/L (KUMAR ALMARAZ) My Orders Orders - KUMAR ALMARAZ Acetaminophen Tablet (Tylenol Tablet) (08/28/21 19:15) (KUMAR ALMARAZ) Medications Given in ED Current Medications Medications Dose Ordered Sig/Shannan Route Start Time Stop Time Status Last Admin Dose Admin Acetaminophen 1,000 mg ONCE ONCE PO 08/28/21 19:15 08/28/21 19:16 DC 08/28/21 19:12 1,000 MG (KUMAR ALMARAZ) Vital Signs/I&O 08/28/21 08/28/21 08/28/21 08/28/21 15:43 15:43 15:44 16:50 Temp 36.1 36.1 36.1 Pulse 70 70 70 Resp 20 20 20 B/P (MAP) 108/85 (93) 108/85 106/55 Pulse Ox 97 98 98 98 O2 Delivery Room Air Room Air Room Air Room Air 08/28/21 19:52 Pulse 65 Resp 16 B/P (MAP) 111/73 Pulse Ox 98 O2 Delivery Room Air (KUMAR ALMARAZ) Blood Pressure Mean: 93 Progress Progress Note : Progress Note Seen and evaluated. Chest pain protocol initiated. Aspirin and nitroglycerin sublingual ordered. I have reviewed patient's history and she does have negative heart cath in 2012 and negative stress test in 2020. We will evaluate chest pain protocol labs and chest x-ray as well as EKG. Likely will need 2- hour repeat troponin if initial studies are negative. This was discussed with the patient who agrees. Monitor patient. (RIVAS MAYS MD) Progress Note : Time: 18:25 Progress Note Assumed care of the patient at shift change. She has a negative cardiac catheterization from 8 years ago. She presents with some convincing pain and significant history with her father, grandfather and hypertension hyperlipidemia. She quit smoking over 2 years ago. We have extended her delta troponin out until 1900 and if she is still doing okay she can follow-up tomorrow with cardiology in the clinic. She is okay with this plan. (KUMAR ALMARAZ) Initial ECG Impression Date: Aug 28, 2021 Initial ECG Impression Time: 15:42 Initial ECG Rate: 64 Initial ECG Rhythm: Normal Sinus Comment Sinus rhythm with left atrial abnormality. Normal axis. No evidence of ST elevation CO. Similar to previous of 03/01/2013. Interpreted by me. (RIVAS MAYS MD) Initial ECG Intervals: Normal Initial ECG Comparisson: Unchanged (KUMAR ALMARAZ) Diagnostic Imaging Diagonstic Imaging: Xray Plain Films/CT/US/NM/MRI: chest Comments [facility] [place], [place] NAME: ILANJEFF [employer] REC#: [id number] PT STATUS: REG ER : 1965 PHYSICIAN: RIVAS MAYS MD ADMIT DATE: 08/28/21/ER Signed Date of Exam:08/28/21 CHEST 1 VIEW, AP/PA ONLY EXAM: CHEST 1 VIEW, AP/PA ONLY INDICATION: Chest pain. COMPARISON: 07/09/2018. FINDINGS: Normal heart size and pulmonary vascularity. No dense consolidation, pleural effusion or pneumothorax. No acute osseous findings. IMPRESSION: No acute cardiopulmonary findings. Dictated by: Dictated on workstation # [id number] Dict: 08/28/21 1609 Trans: 08/28/[address] [facility] [id number] Interpreted by: MEL JOHNSON MD Electronically signed by: MEL JOHNSON MD 08/28/21 1638 Diagonstic Imaging: Xray Plain Films/CT/US/NM/MRI: ankle, other Comments [facility] [place] NAME: ILANZIOPHARM [facility] REC#: [id number] PT STATUS: REG ER : 1965 PHYSICIAN: RIVAS MAYS MD ADMIT DATE: 08/28/21/ER Signed Date of Exam:08/28/21 ANKLE, LEFT, 3 VIEWS CLINICAL INDICATION: Patient with left foot and ankle pain after work yesterday. Patient has pain on dorsal lateral aspect. EXAMS: 1: X-ray of the left foot, 3 views. 2: X-ray of the left ankle, 3 views. COMPARISON: None. FINDINGS: There is a nondisplaced transverse fracture involving the proximal diametaphysis of the 2nd metatarsal bone with the appearance of slight sclerosis and callus formation. X-ray of the left foot shows no other significant fracture or dislocation. Mild hallux valgus deformity noted. There is a moderately hypertrophic calcaneal spur at the Achilles attachment and minimal sized calcaneal spur at the Achilles attachment. Ankle mortise and syndesmotic joints are unremarkable. There is no fracture of the mid foot, hindfoot or distal tibiofibular regions. IMPRESSION: 1: There is a nondisplaced transverse fracture involving the proximal diametaphysis of the 2nd metatarsal bone with sclerosis and some callus formation. This appears represent a subacute fracture. 2: The remainder of the left foot and left ankle shows no acute fracture or dislocation. 3: Mild hallux valgus deformity noted. 4: There are calcaneal spurs. Dictated by: Dictated on workstation # [id number] Dict: 08/28/211651 Trans: 08/28/211658 [id number] Interpreted by: JASBIR ADRIAN MD Electronically signed by: JASBIR ADRIAN MD 08/28/211658 Reviewed: Reviewed by Me (RIVAS MAYS MD) Departure Impression Primary Impression: Chest pain Qualified Codes: R07.9 - Chest pain, unspecified Additional Impression: Foot fracture, left Qualified Codes: S92.902A - Unspecified fracture of left foot, initial encounter for closed fracture Disposition: 01 HOME, SELF-CARE Condition: Stable Departure-Patient Inst. Decision time for Depature: 19:50 (KUMAR ALMARAZ) Referrals: ADÁN FARFAN MD (PCP/Family) Primary Care Physician ANDREWS MILLS MD, CORIN Q DPM Patient Instructions: Foot Fracture ED, Chest Pain (DC) Add. Discharge Instructions: 81 mg aspirin daily until you see the residential program manager. Tomorrow call the residential program manager and request follow-up appointment sometime this week. Promptly return to the nearest ER if you begin having significant chest pain, shortness of air or other worrisome symptoms again. All discharge instructions reviewed with patient and/or family. Voiced un derstanding. Work/School Note: Work Release Form Date Seen in the Emergency Department: Aug 28, 2021 Return to Work: Aug 30, 2021 Restrictions: No Restrictions Copy Copies To 1: ANDREWS MILLS MD, TIMOTHY D MD Aug 28, 2021 15:58 KUMAR ALMARAZ Aug 28, 2021 18:29
[2021-08-28] MEDS ORDERED: ASPIRIN 81 MG CHEW (CHILDREN'S ASA) PO ONE (16:00)
[2021-08-28] MEDS ORDERED: NITROGLYCERIN 0.4 MG SL TABS BTL 25'S SL PRN (16:00)
[2021-08-28 16:01] LABS: BASOPHILS % (AUTO) 0 % (0-10); EOSINOPHILS # (AUTO) 0.3 10^3/uL (0.0-0.3); EOSINOPHILS % (AUTO) 3 % (0-10); HEMATOCRIT 34 % (35-52); HEMOGLOBIN 10.5 g/dL (11.5-16.0); LYMPHOCYTES # (AUTO) 4.1 10^3/uL (1.0-4.0); LYMPHOCYTES % (AUTO) 38 % (12-44); MEAN CORPUSCULAR HEMOGLOBIN 28 pg (25-34); MEAN CORPUSCULAR HGB CONC 31 g/dL (32-36); MEAN CORPUSCULAR VOLUME 91 fL (80-99); MEAN PLATELET VOLUME 9.7 fL (9.0-12.2); MONOCYTES # (AUTO) 0.8 10^3/uL (0.0-1.0); MONOCYTES % (AUTO) 7 % (0-12); NEUTROPHILS # (AUTO) 5.7 10^3/uL (1.8-7.8); NEUTROPHILS % (AUTO) 52 % (42-75); PLATELET COUNT 459 10^3/uL (130-400); WHITE BLOOD COUNT 10.9 10^3/uL (4.3-11.0)
[2021-08-28 16:11] LABS: ALBUMIN 3.5 GM/DL (3.2-4.5); POTASSIUM 3.7 MMOL/L (3.6-5.0)
[2021-08-28 16:12] LABS: CALCIUM 9.2 MG/DL (8.5-10.1)
--- NOTE | 2021-08-28 16:12 | Diagnostic Imaging Report ---
EXAM: CHEST 1 VIEW, AP/PA ONLY INDICATION: Chest pain. COMPARISON: 07/09/2018. FINDINGS: Normal heart size and pulmonary vascularity. No dense consolidation, pleural effusion or pneumothorax. No acute osseous findings. IMPRESSION: No acute cardiopulmonary findings. Dictated by: Dictated on workstation # [id number]
[2021-08-28 16:14] LABS: TOTAL PROTEIN 6.1 GM/DL (6.4-8.2)
[2021-08-28 16:15] LABS: BILIRUBIN,TOTAL 0.3 MG/DL (0.1-1.0)
[2021-08-28 16:17] LABS: CREATININE SERUM 0.7 MG/DL (0.60-1.30)
[2021-08-28 16:20] LABS: MAGNESIUM 1.9 MG/DL (1.6-2.4)
--- NOTE | 2021-08-28 16:58 | Diagnostic Imaging Report ---
CLINICAL INDICATION: Patient with left foot and ankle pain after work yesterday. Patient has pain on dorsal lateral aspect. EXAMS: 1: X-ray of the left foot, 3 views. 2: X-ray of the left ankle, 3 views. COMPARISON: None. FINDINGS: There is a nondisplaced transverse fracture involving the proximal diametaphysis of the 2nd metatarsal bone with the appearance of slight sclerosis and callus formation. X-ray of the left foot shows no other significant fracture or dislocation. Mild hallux valgus deformity noted. There is a moderately hypertrophic calcaneal spur at the Achilles attachment and minimal sized calcaneal spur at the Achilles attachment. Ankle mortise and syndesmotic joints are unremarkable. There is no fracture of the mid foot, hindfoot or distal tibiofibular regions. IMPRESSION: 1: There is a nondisplaced transverse fracture involving the proximal diametaphysis of the 2nd metatarsal bone with sclerosis and some callus formation. This appears represent a subacute fracture. 2: The remainder of the left foot and left ankle shows no acute fracture or dislocation. 3: Mild hallux valgus deformity noted. 4: There are calcaneal spurs. Dictated by: Dictated on workstation # [id number]
[2021-08-28] MEDS ORDERED: ACETAMINOPHEN 500 MG TAB (TYLENOL) PO ONE (19:15)
[2021-08-28 19:52] VITALS: BP 111/73
== END 2021-08-28 19:53 | disposition home or self-care (01) ==
LOC: EDUNIT# 15:35 → ER 15:36
DX: S92.325A Nondisplaced fracture of second metatarsal bone, left foot, initial encounter for closed fracture (principal); R07.9 Chest pain, unspecified; I10 Essential (primary) hypertension; E66.9 Obesity, unspecified; G89.29 Other chronic pain; M54.9 Dorsalgia, unspecified; F32.9 Major depressive disorder, single episode, unspecified; E78.00 Pure hypercholesterolemia, unspecified; Z68.42 Body mass index [BMI] 45.0-49.9, adult; Z87.891 Personal history of nicotine dependence; Z79.891 Long term (current) use of opiate analgesic; Z79.52 Long term (current) use of systemic steroids; Z79.899 Other long term (current) drug therapy; X58.XXXA Exposure to other specified factors, initial encounter
CPT/HCPCS: 36415; 71045; 73610; 73630; 80053; 83690; 83735; 83874; 84484; 85025; 85379; 85610; 85730; 93005; 93041

== ENCOUNTER 2021-09-16 07:23 | Emergency (ER) | payer MEDICARE, MEDICAID ==
[~2021-09-16] VITALS: Ht 160 cm; Wt 115.6 kg
--- NOTE | 2021-09-16 07:53 | ED EENT ---
History of Present Illness General Chief Complaint: Nasal Problems Stated Complaint: CYST IN NOSE,WHEEZING Source: patient Exam Limitations: no limitations History of Present Illness Date Seen by Provider: Sep 16, 2021 Time Seen by Provider: 07:35 Initial Comments Patient presents ER by private conveyance with chief complaint about 3 days ago she woke up in her sleep had a episode of emesis and feels like she got some in her nose and also aspirated some in her lungs. She is felt little wheezy since then. She is not had any fevers or productive cough. She says she flushed her nose out and in doing so she thinks she may have cut to the inner portion of her nose and caused a swelling cyst on the left nare. She says is painful, warm, red and not draining. 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 She has not seen anyone for this yet. She is not on antibiotics. She is not immunocompromise. She does not have an allergy to doxycycline but states that doxycycline does not do anything for her. She says she has tolerated Bactrim in the past and it works well for her. Allergies and Home Medications Allergies Coded Allergies: No Known Allergies (Verified Allergy, Unknown, 07/09/18) Sulfa (Sulfonamide Antibiotics) (Verified Allergy, Unknown, 08/14/21) acetaminophen (Verified Allergy, Unknown, 08/14/21) oxycodone (Verified Allergy, Unknown, 08/14/21) Patient Home Medication List Home Medication List Reviewed: Yes Acetaminophen (Tylenol Extra Strength) 500 Mg Tablet, 500-1,000 MG PO Q6H PRN for PAIN-MILD, (Reported) Entered as Reported by: MICHAEL JENKINS on 07/09/18 1306 Budesonide (Budesonide EC) 3 Mg Capdr...er, 9 MG PO DAILY, (Reported) Entered as Reported by: MICHAEL JENKINS on 07/09/18 1247 Estradiol (Estradiol Tablet) 1 Mg Tablet, 1 MG PO DAILY, (Reported) Entered as Reported by: MICHAEL JENKINS on 07/09/18 1247 Gabapentin (Gabapentin) 300 Mg Capsule, 900 MG PO TID, (Reported) Entered as Reported by: MICHAEL JENKINS on 07/09/18 1256 Hydrocodone Bit/Acetaminophen (Lortab 5 Mg Tablet) 1 Each Tablet, 1 TAB PO Q6H PRN for PAIN-MODERATE, (Reported) Entered as Reported by: MICHAEL JENKINS on 07/09/18 1247 Lisinopril/Hydrochlorothiazide (Lisinopril-Hctz 20-12.5 mg Tab) 1 Each Tablet, 1 EACH PO DAILY, (Reported) Entered as Reported by: OLEKSANDR NEWELL on 03/08/20 1548 Multivitamin (Daily Multiple Vitamin) 1 Each Tablet, 1 TAB PO DAILY, (Reported) Entered as Reported by: MICHAEL JENKINS on 07/09/18 1306 Prednisone (Prednisone) 20 Mg Tab, 40 MG PO DAILY Prescribed by: MIRELA HUANG on 07/09/202037 Prednisone (Prednisone) 20 Mg Tab, 40 MG PO DAILY Prescribed by: RIVAS MAYS on 07/31/20 1048 Prednisone (Prednisone) 20 Mg Tab, 40 MG PO DAILY Prescribed by: JANNIE REYNOSO on 10/29/20 1448 Simvastatin (Simvastatin) 40 Mg Tablet, 40 MG PO HS, (Reported) Entered as Reported by: MICHAEL JENKINS on 07/09/18 1247 Vilazodone Hydrochloride (Viibryd) 40 Mg Tablet, 40 MG PO DAILY, (Reported) Entered as Reported by: OLEKSANDR NEWELL on 03/08/20 1548 Review of Systems Review of Systems Constitutional: No chills, No diaphoresis Eyes: Denies Blindness, Denies Blurred Vision Ears: Denies Dizziness, Denies Pain Nose: see HPI; denies congestion; pain Mouth: denies clots, denies pain, denies swelling Throat: denies pain, denies swelling Respiratory: cough; No phlegm, No short of breath; wheezing Cardiovascular: No chest pain, No edema All Other Systems Reviewed Negative Unless Noted: Yes Past Bfgtpar-Mfznrk-Lruofq Hx Patient Social History Tobacco Use?: No Use of E-Cig and/or Vaping dev: No Substance use?: No Alcohol Use?: No Immunizations Up To Date Tetanus Booster (TDap): Unknown PED Vaccines UTD: No First/Initial COVID19 Vaccinat: January 2021 Second COVID19 Vaccination Wes: February 2021 Seasonal Allergies Seasonal Allergies: No Past Medical History Surgery/Hospitalization HX: hysterectomy, GB, appendix COPD, neuropathy, htn Surgeries: Yes (diskectomy; laminectomy, back sx) Appendectomy, Gallbladder, Hysterectomy Respiratory: Yes Pneumonia Cardiac: Yes Chronic Edema/Swelling, Hypertension Neurological: No Reproductive Disorders: No (HAS 3 GROWN CHILDREN) Female Reproductive Disorders: Denies Sexually Transmitted Disease: No HIV/AIDS: No Genitourinary: No Gastrointestinal: Yes Polyps Musculoskeletal: Yes Back Injury, Chronic Back Pain Endocrine: No HEENT: No Cancer: No Psychosocial: Yes Depression Integumentary: No Blood Disorders: No Adverse Reaction/Blood Tranf: No Family Medical History Arthritis Asthma Cardiovascular disease Colon cancer Completed stroke FH: colon cancer Hypertension Myocardial infarction Psychosocial problem Respiratory disorder No Pertinent Family Hx Physical Exam Vital Signs Vital Signs - First Documented 09/16/21 07:35 Temp 36.2 Pulse 77 Resp 20 B/P (MAP) 179/100 (126) Pulse Ox 95 O2 Delivery Room Air Height, Weight, BMI Height: 5'5.00" Weight: 248lbs. 2.0oz. 112.432498hg; 46.00 BMI Method:Stated General Appearance: WD/WN, no apparent distress Eyes: bilateral eye normal inspection, bilateral eye PERRL, bilateral eye EOMI Ears: bilateral ear auricle normal, bilateral ear canal normal, bilateral ear TM normal (Left TM has some scarring but otherwise nonacute) Nose: other (Mild erythematous mucosa bilaterally with swelling of the soft tissue of the lateral ala of the nare on the left nare. No pointing drainage or fluctuance palpable. Firm nodule, tender to palpation.) Mouth/Throat: normal mouth inspection, pharynx normal Neck: full range of motion, supple, normal inspection Cardiovascular: normal peripheral pulses, regular rate, rhythm Respiratory: lungs clear, normal breath sounds, no respiratory distress, no accessory muscle use Progress/Results/Core Measures Results/Orders My Orders Orders - KUMAR ALMARAZ Chest 1 View, Ap/Pa Only (09/16/21 07:45) Vital Signs/I&O 09/16/21 07:35 Temp 36.2 Pulse 77 Resp 20 B/P (MAP) 179/100 (126) Pulse Ox 95 O2 Delivery Room Air Progress Progress Note : Time: 07:54 Progress Note Aseptic vital signs, oxygenation 98% on room air. Nonlabored breathing. Clear lung sounds. We will get a chest x-ray but if the x-ray looks okay we will just put her on antibiotics to cover for her nose abscess that may have started out as a folliculitis or some similar mucosal injury. Bactrim would be a good mono coverage. There is nothing to drain right now. As it sets up if the antibiotics do not work alone we will have her follow-up with ENT outpatient. Return precautions were given. Patient is okay with this plan. Diagnostic Imaging Diagonstic Imaging: Xray Plain Films/CT/US/NM/MRI: chest Comments NAME: [facility] REC#: [id number] PT STATUS: REG ER : 1965 PHYSICIAN: KUMAR ALMARAZ MD ADMIT DATE: 09/16/21/ER Draft Date of Exam:09/16/21 CHEST 1 VIEW, AP/PA ONLY INDICATION: Possible aspiration. TIME OF EXAM: 8:19 AM Correlation is made with prior chest from 08/28/2021. The heart size is normal. There is some infiltrate in the right perihilar region, new since prior exam. The left lung is clear. There is no effusion or pneumothorax. IMPRESSION: Development of right perihilar pneumonia. Dictated on workstation # [id number] Dict: 09/16/21916 Trans: 09/16/21917 [facility] [id number] Interpreted by: SADIA HENLEY MD Electronically signed by: Reviewed: Reviewed by Me Departure Impression Primary Impression: Abscess, furuncle and carbuncle of nose Additional Impression: Pneumonia Qualified Codes: J69.0 - Pneumonitis due to inhalation of food and vomit Disposition: HOME, SELF-CARE Condition: Stable Departure-Patient Inst. Decision time for Depature: 08:10 Referrals: KORTNEY OLIVERA MD, DAVID F MD (PCP/Family) Primary Care Physician Patient Instructions: Boil (DC), Pneumonia, Adult (DC) Add. Discharge Instructions: Warm moist heat applied to the outside your nose frequently will help relieve pain as well as increase blood flow to the area so the infection will get treated sooner. Flagyl 3 times a day with food. Augmentin twice a day with food. Double up on your probiotics while you are on the antibiotics. Tylenol and Motrin as necessary for pain. You should see improvement in the swelling and pain in your nose in about 2 to 3 days. If you are not feeling improvement then you should follow-up with ENT, Dr. Olivera. Promptly return to the ER for shortness of air, chest pain or other worrisome symptoms. All discharge instructions reviewed with patient and/or family. Voiced understanding. Scripts Amoxicillin/Potassium Clav (Augmentin 875-125 Tablet) 1 Each Tablet 1 EACH PO BID for 10 Days, #20 TAB 0 Refills Prov: KUMAR ALMARAZ 09/16/21 Metronidazole (Metronidazole) 500 Mg Tablet 500 MG PO TID for 10 Days, #30 TAB 0 Refills Prov: KUMAR ALMARAZ 09/16/21 Copy Copies To 1: KORTNEY OLIVERA MD, TITUS J Sep 16, 2021 07:53
--- NOTE | 2021-09-16 09:19 | Diagnostic Imaging Report ---
INDICATION: Possible aspiration. TIME OF EXAM: 8:19 AM Correlation is made with prior chest from 08/28/2021. The heart size is normal. There is some infiltrate in the right perihilar region, new since prior exam. The left lung is clear. There is no effusion or pneumothorax. IMPRESSION: Development of right perihilar pneumonia. Dictated by: Dictated on workstation # [id number]
[2021-09-16] MEDS ORDERED: METR-145 PO (09:27)
[2021-09-16] MEDS ORDERED: AMOX-358 PO (09:27)
[2021-09-16 09:34] VITALS: BP 171/97
== END 2021-09-16 09:34 | disposition home or self-care (01) ==
LOC: EDUNIT# 07:23 → ER 07:24
DX: J34.0 Abscess, furuncle and carbuncle of nose (principal); J18.9 Pneumonia, unspecified organism; J44.9 Chronic obstructive pulmonary disease, unspecified; I10 Essential (primary) hypertension; F32.9 Major depressive disorder, single episode, unspecified; G89.29 Other chronic pain; M54.9 Dorsalgia, unspecified; Z79.891 Long term (current) use of opiate analgesic; Z79.899 Other long term (current) drug therapy
CPT/HCPCS: 71045

== ENCOUNTER → 2021-10-07 | Outpatient (CLI) | payer MEDICARE, MEDICAID ==
[~2021-10-07] MED LIST changes: +AMOX-358 PO; -LISI1TAB29 PO; +LISI1TAB44 PO; +METR-145 PO
== END ==
LOC: CARD 11:00
PROVIDERS: ATTEND Internal Medicine Cardiovascular Disease
DX: I11.9 Hypertensive heart disease without heart failure (principal)
CPT/HCPCS: 93306

== ENCOUNTER 2021-12-08 05:30 | Outpatient (RCR) | payer MEDICARE, MEDICAID ==
[~2021-12-08] VITALS: Ht 160 cm; Wt 120.2 kg
== END 2021-12-09 08:57 | disposition home or self-care (01) ==
LOC: PREOP 05:30
PROVIDERS: ATTEND Surgery
DX: Z01.818 Encounter for other preprocedural examination (principal)
CPT/HCPCS: 87635

== ENCOUNTER → 2021-12-08 | Outpatient (CLI) | payer MEDICARE, MEDICAID ==
[~2021-12-08] MED LIST changes: +BUPR100T8 PO; +FISH12002 PO; +FLUT1BLS3 IH; +LACT1CAP74 PO; +MTP25TSR PO
== END ==
LOC: LABNPT 06:06
PROVIDERS: ATTEND Surgery
DX: Z20.822 Contact with and (suspected) exposure to COVID-19 (principal)
CPT/HCPCS: 87635

== ENCOUNTER → 2021-12-15 | Outpatient (CLI) | payer MEDICARE, MEDICAID | LOC: LABNPT 07:53 | PROVIDERS: ATTEND Surgery | DX: Z53.9 Procedure and treatment not carried out, unspecified reason (principal) ==

== ENCOUNTER 2021-12-16 06:46 | Outpatient (CLI) | payer MEDICARE, MEDICAID | END 2021-12-16 10:00 | LOC: PREOP 06:46 | PROVIDERS: ATTEND Surgery | DX: Z01.812 Encounter for preprocedural laboratory examination (principal); Z20.822 Contact with and (suspected) exposure to COVID-19 | CPT/HCPCS: 87635 ==

== ENCOUNTER 2021-12-19 08:48 | Day surgery (SDC) | payer MEDICARE, MEDICAID ==
[~2021-12-19] VITALS: Ht 160 cm; Wt 120.2 kg
[2021-12-19] MEDS ORDERED: LACTATED RINGERS 1,000 ML IV ONE (08:55)
[2021-12-19] MEDS ORDERED: LACTATED RINGERS 1,000 ML IV STA (08:57)
[2021-12-19] MEDS ORDERED: HURRICAINE EXT TUBE (BENZOCAINE) XX PRN (09:00)
[2021-12-19 09:15] VITALS: BP 165/74
--- NOTE | 2021-12-19 09:52 | Progress Note-Pre Operative ---
Pre-Operative Progress Note H&P Reviewed The H&P was reviewed, patient examined and no changes noted. Time Seen by Provider: 09:50 Date H&P Reviewed: Dec 19, 2021 Time H&P Reviewed: 09:50 Pre-Operative Diagnosis: Epigastric pain, melena MARIANNA FONTANEZ DO Dec 19, 2021 09:52
[2021-12-19] MEDS ORDERED: meTOprolol 5 MG/5 ML (LOPRESSOR) VIAL ONE (10:58)
[2021-12-19] MEDS ORDERED: PROPOFOL INJECTION 50 ML IV ONE ×2 (10:58→11:19)
[2021-12-19] MEDS ORDERED: MIDAZOLAM 2 MG/2 ML (VERSED) VIAL ONE (10:58)
--- NOTE | 2021-12-19 11:36 | Progress Note-Post Operative ---
Post-Operative Progess Note Surgeon (s)/Fur Mixer (s) Surgeon MARIANNA FONTANEZ DO Fur Mixer: Ranjan Abraham, MSIII Pre-Operative Diagnosis Epigastric pain, melena Post-Operative Diagnosis Antral Ulcer hiatal hernia Gastritis Polyp int hemorrhoid Procedure & Operative Findings Date of Procedure 12/19/21 Procedure Performed/Findings EGD with bx Colon with cold bx PROCEDURE NOTE: After informed consent was obtained, the patient was brought to the endoscopy suite, placed in bed in left lateral decubitus position. She was administered IV sedation by the MECHANICAL ESTIMATOR who then monitored vitals the entire time, heart rate, blood pressure and pulse ox and the scope was inserted down the mouth through the esophagus into the stomach. On the way down, noted some mild esophagitis, took a picture, pushed into the stomach, pushed past the antrum into the duodenum. Duodenum looked good. Pulled back and noted what looked like a healed ulcer; did a biopsy of this antral ulcer. Then retroflexed the scope and saw 2cm hiatal hernia, took a picture of this and then pulled the scope into the GE junction. Took another picture of the GE junction and then did a biopsy. Pushed the scope back into the stomach, suctioned all the air out of the stomac h. At this point pulled the scope up the esophagus and out the mouth. Switched camera, switched gloves, went down below and started the colonoscopy. Pushed all the way into about 140 cm to get all the way to cecum, took a picture of the appendiceal orifice, noted the ileocecal valve and then slowly withdrew the scope, insufflating to look circumferentially at the hidalgo starting in the cecum, up the ascending colon and saw a small polyp; elected to do a cold biopsy. Continued up to the hepatic flexure, then down the transverse colon to the splenic flexure, into the descending colon, down into the sigmoid and finally into the rectum. Retroflexed in the rectal vault, saw some minimal internal hemorrhoids and took a picture of them. The patient tolerated the procedure and she recovered in the endoscopy suite. Anesthesia Type IV sedation by MECHANICAL ESTIMATOR Estimated Blood Loss Estimated blood loss (mL): scant Specimens/Packing Specimens Removed antral ulcer GE jxn asc colon polyp MARIANNA FONTANEZ DO Dec 19, 2021 11:36
--- NOTE | 2021-12-19 11:37 | Endoscopy Discharge Instruct ---
Endo Procedure/Findings Findings 1.: Gastric Ulcer 2.: Hiatal Hernia 3.: Polyp 4.: Internal Hemorrhoids Discharge Instructions - Activity: You might feel a little sleepy until tomorrow. This is due to the medicine you received to relax you. Until tomorrow, you should: NOT drive a car, operate machinery or power tools. NOT drink any alcoholic beverages. NOT make any important decisions or sign importortant papers. Do not return to work until tomorrow, unless otherwise instructed. Resume pre vious activities tomorrow. Diet: Start by taking liquids. If you tolerate liquids, advance to solid food. 1.: EGD in 6-8 weeks 2.: Colonscopy in 5 years Notify Physician - If you experience excessive bleeding, unusual abdominal pain, fever, or chest pain, contact your doctor immediately. MARIANNA FONTANEZ DO Dec 19, 2021 11:37
[2021-12-19 11:43] VITALS: BP 133/75
[2021-12-19 11:45] VITALS: BP 133/75
[2021-12-19 12:15] VITALS: BP 115/68
--- NOTE | 2021-12-19 12:40 | Anesthesia-General Post-Op ---
MAC Patient Condition Mental Status/LOC: Same as Preop Cardiovascular: Satisfactory Nausea/Vomiting: Absent Respiratory: Satisfactory Pain: Controlled Complications: Absent Post Op Complications Complications None Follow Up Care/Instructions Patient Instructions None needed. Anesthesiology Discharge Order Discharge Order Patient is doing well, no complaints, stable vital signs, no apparent adverse anesthesia problems. No complications reported per nursing. HEAVEN NOYOLA CRNA Dec 19, 2021 12:39
== END 2021-12-19 12:35 | disposition home or self-care (01) ==
LOC: ENDO 08:48
PROVIDERS: ATTEND Surgery
DX: D12.2 Benign neoplasm of ascending colon (principal); K25.9 Gastric ulcer, unspecified as acute or chronic, without hemorrhage or perforation; K44.9 Diaphragmatic hernia without obstruction or gangrene; K21.00 Gastro-esophageal reflux disease with esophagitis, without bleeding; K29.70 Gastritis, unspecified, without bleeding; K64.8 Other hemorrhoids; K22.89 Other specified disease of esophagus; K92.1 Melena; Z87.891 Personal history of nicotine dependence; Z79.899 Other long term (current) drug therapy
CPT/HCPCS: 88305

== ENCOUNTER → 2022-01-02 | Outpatient (CLI) | payer MEDICARE, MEDICAID ==
--- NOTE | 2022-01-02 12:01 | Diagnostic Imaging Report ---
INDICATION: Routine screening. COMPARISON: 12/27/2020 and 01/25/2016. TECHNIQUE: 2D and 3D bilateral screening mammography was performed with CAD. FINDINGS: Scattered fibroglandular densities are identified bilaterally. A benign nodule in the outer right breast is stable. No new mass or malignant-appearing microcalcifications are seen. The axillae are unremarkable. IMPRESSION: No mammographic features suspicious for malignancy are identified. ACR BI-RADS Category 2: Benign findings. Result letter will be mailed to the patient. Note: At least 10% of breast cancer is not imaged by mammography. Dictated by: Dictated on workstation # [id number]
== END ==
LOC: RAD 10:36
PROVIDERS: ATTEND Internal Medicine
DX: Z12.31 Encounter for screening mammogram for malignant neoplasm of breast (principal)
CPT/HCPCS: 77063; 77067

== ENCOUNTER → 2022-01-02 | Outpatient (CLI) | payer MEDICARE, MEDICAID | LOC: CARD 10:41 | PROVIDERS: ATTEND Physician Assistant | DX: I49.9 Cardiac arrhythmia, unspecified (principal) | CPT/HCPCS: 93225; 93226 ==

== ENCOUNTER → 2022-01-09 | Outpatient (CLI) | payer MEDICARE, MEDICAID ==
[~2022-01-09] VITALS: Ht 160 cm; Wt 119.0 kg
[~2022-01-09] MED LIST changes: +CATHETER FLUSH 10 ML SYR IVP PRN; +REGADENOSON 0.4 MG/5 ML SYR (LEXISCAN) IV ONE
[2022-01-09 09:27] VITALS: BP 162/102
--- NOTE | 2022-01-09 11:34 | Cardiology Stress Test Report ---
Stress Test Report Date of Procedure/Referring: Date of Procedure: Jan 09, 2022 Lily Avitia Admitting Physician Seng Olson MD Indications: Arrhythmia Baseline Heart Rate: 62 Baseline Blood Pressure: Blood Pressure Systolic: 162 Blood Pressure Diastolic: 102 Baseline Vitals Vital Signs Date Time Temp Pulse Resp B/P (MAP) Pulse Ox O2 Delivery O2 Flow Rate FiO2 01/09/22 09:27 62 162/102 (122) Baseline EKG: Baseline EKG: NSR Summary After explaining the procedure to the patient, she signed a consent and then brought to the stress nuclear laboratory. Patient received 0.4 mg Lexiscan for stress test, ECG, heart rate and blood pressure were monitored continuously. Resting and stress dose of radio tracer were injected, imaging was acquired and reviewed in short axis, horizontal long axis and vertical long axis views. TID: 1.13 SSS: 10 SDS: 6 EF: 54 1. Patient tolerated Lexiscan well 2. Baseline hypertension persisted during test 3. Breast attenuation with reversible ischemia involving the anterior wall and anterior apex 4. Normal left ventricular size, EF 54% ANDREWS MILLS MD Jan 09, 2022 11:34
== END ==
LOC: CARD 08:00
PROVIDERS: ATTEND Physician Assistant
DX: I49.9 Cardiac arrhythmia, unspecified (principal)
CPT/HCPCS: 78452; 93017; A9502

== ENCOUNTER → 2022-01-16 | Outpatient (CLI) | payer MEDICARE, MEDICAID ==
[~2022-01-16] MED LIST changes: +ASPI-1238 PO; -CATHETER FLUSH 10 ML SYR IVP PRN; +ERGO1250 PO; +LISI1TAB48 PO; +MELO15TA14 PO; +MULT-1009 PO; +OMEP20TA7 PO; +PRD50T PO; -REGADENOSON 0.4 MG/5 ML SYR (LEXISCAN) IV ONE; +TIZA4CAP8 PO
--- NOTE | 2022-01-16 15:55 | Diagnostic Imaging Report ---
PROCEDURE: US right lower extremity venous. TECHNIQUE: Multiple real-time grayscale images were obtained over the right lower extremity in various projections. Additional spectral analysis and color Doppler duplex images were also obtained. INDICATION: Right lower extremity swelling and pain. COMPARISON: None. FINDINGS: Visualized deep and superficial venous system is patent. There is no DVT. Complex mass seen in the right popliteal fossa of uncertain etiology. This may be a debris-filled Olivera's cyst. IMPRESSION: 1. No DVT identified. 2. Complex appearing mass measuring approximately 2-3 cm in the popliteal fossa, possibly a debris-filled Olivera's cyst. Consider MRI. If the patient is not MR compatible, CT is recommended. Dictated by: Dictated on workstation # [id number]
== END ==
LOC: RAD 14:23
PROVIDERS: ATTEND Family Medicine Sports Medicine
DX: R22.41 Localized swelling, mass and lump, right lower limb (principal)

== ENCOUNTER 2022-01-18 10:55 | Day surgery (SDC) | payer MEDICARE, MEDICAID ==
[2022-01-18] VITALS (8 sets, daily range): BP systolic 131–172; BP diastolic 67–90
[~2022-01-18] VITALS: Ht 160 cm; Wt 120.7 kg
[~2022-01-18 10:55] MED LIST changes: -ASPI-1238 PO; -BUPR-104 PO; +BUPR100T8 PO; -ERGO1250 PO; -LISI1TAB48 PO; -MELO15TA14 PO; -MULT-1009 PO; -OMEP20TA56 PO; -PRD50T PO; -TIZA4CAP8 PO
[2022-01-18] MEDS ORDERED: NS IV 1000 ML 1,000 ML ONE (10:58)
[2022-01-18] MEDS ORDERED: LIDOCAINE 1% INJ 50 ML (XYLOCAINE) VIAL ONE (10:58)
[2022-01-18] MEDS ORDERED: HEParin (CATH LAB) 2,000 ML IV ONE (10:58)
[2022-01-18] MEDS ORDERED: NS IV 1000 ML 1,000 ML IV SCH ×2 (11:00→14:30)
[2022-01-18 11:24] LABS: HEMATOCRIT 38 % (35-52); HEMOGLOBIN 12.2 g/dL (11.5-16.0); MEAN CORPUSCULAR HEMOGLOBIN 29 pg (25-34); MEAN CORPUSCULAR HGB CONC 32 g/dL (32-36); MEAN CORPUSCULAR VOLUME 91 fL (80-99); MEAN PLATELET VOLUME 9.4 fL (9.0-12.2); PLATELET COUNT 493 10^3/uL (130-400); WHITE BLOOD COUNT 16.8 10^3/uL (4.3-11.0)
--- NOTE | 2022-01-18 11:32 | Diagnostic Imaging Report ---
INDICATION: Chest pain EXAMINATION: Portable chest at 11:13 AM Heart size and pulmonary vascularity are normal. Lungs are clear. There are no effusions or pneumothoraces. IMPRESSION: Negative chest. Dictated by: Dictated on workstation # [id number]
[2022-01-18 11:33] LABS: PROTHROMBIN TIME PATIENT 13.1 SEC (12.2-14.7)
[2022-01-18 11:41] LABS: ALBUMIN 3.8 GM/DL (3.2-4.5); BILIRUBIN,TOTAL 0.4 MG/DL (0.1-1.0); CALCIUM 9.7 MG/DL (8.5-10.1); CREATININE SERUM 0.67 MG/DL (0.60-1.30); TOTAL PROTEIN 7.1 GM/DL (6.4-8.2)
[2022-01-18] MEDS ORDERED: LISI1TAB48 PO (11:57)
[2022-01-18] MEDS ORDERED: OMEP20TA7 PO (11:57)
[2022-01-18] MEDS ORDERED: ASPI-1238 PO (11:57)
[2022-01-18] MEDS ORDERED: ERGO1250 PO (11:57)
[2022-01-18] MEDS ORDERED: MELO15TA14 PO (11:57)
[2022-01-18] MEDS ORDERED: MULT-1009 PO (11:57)
[2022-01-18] MEDS ORDERED: ACHD5005 PO (12:10)
[2022-01-18] MEDS ORDERED: PRD50T PO (12:10)
[2022-01-18] MEDS ORDERED: TIZA4CAP8 PO (12:10)
--- NOTE | 2022-01-18 13:26 | Conscious Sedation/ASA ---
Conscious Sedation Pre-Proced Time 13:26 ASA Score 3 For ASA 3 and 4: Consider anesthesia and medical clearance. Also, for patients with a history of failed moderate sedation consider anesthesia. Airway Lungs Heart ASA score ASA 1: a normal healthy patient ASA 2: a patient with a mild systemic disease (mid diabetes, controlled hypertension, obesity x ASA 3: a patient with a severe systemic disease that limits activity (angina, COPD, prior Myocardial infarction) ASA 4: a patient with an incapacitating disease that is a constant threat to life (CHF, renal failure) ASA 5: a moribund patient not expected to survive 24 hrs. (ruptured aneurysm) ASA 6: a declared brain- patient whose organs are being harvested. For emergent operations, add the letter E after the classification Mallampati Classification Grade 3 Sedation Plan Analgesia, Amnesia, Plan communicated to team members, Discussed options with patient/fam, Discussed risks with patient/fam The patient is an appropriate candidate to undergo the planned procedure, sedation, and anesthesia. The patient immediately re-assessed prior to indication. ANDREWS MILLS MD Jan 18, 2022 13:26
[2022-01-18] MEDS ORDERED: fentaNYL INJ 100 MCG/2 ML AMP ONE ×2 (13:38→14:05)
[2022-01-18] MEDS ORDERED: HEParin 1000 UNIT/ML (10ML VIAL) FOR BOLUS ONE (13:38)
[2022-01-18] MEDS ORDERED: MIDAZOLAM 5 MG/5 ML (VERSED) VIAL ONE (13:38)
[2022-01-18] MEDS ORDERED: VERAPAMIL 5 MG/2 ML (CALAN) VIAL IV ONE (13:38)
[2022-01-18] MEDS ORDERED: NITRO DRIP 25000 MCG/D5W 250 ML IV ONE (13:38)
[2022-01-18] MEDS ORDERED: MIDAZOLAM 2 MG/2 ML (VERSED) VIAL ONE (14:05)
--- NOTE | 2022-01-18 14:21 | Discharge Inst-Post CATH ---
Discharge Inst-CATH/EP Problems Reviewed?: Yes Post Cardiac Cath/EP D/C Inst Follow Up/Plan Appointment with Dr. Reaves's office in 2 to 4 weeks <b>CARDIAC CATH/EP PROCEDURE DISCHARGE INSTRUCTIONS</b> ACTIVITY * Go Home directly and rest. * Limit activity of the leg (or wrist if it was used) for 7 days including aer obics, swimming, jogging, bicycling, etc. * Restrict stair-climbing for 7 days if possible, if not, climb up with your non-cath leg, then bring together on the same step. * Avoid lifting, pushing, pulling or excessive movement of the affected extremi ty for 7 days. * Customary sexual activity may be resumed after 2 days-use caution not to use a position that strains or causes pain to the affected extremity. * No driving for 24 hours. * NO SMOKING. * Avoid straining for bowel movements for 7 days. * Gentle walking on level ground is allowed. * Returning to work will depend on the type of procedure and the results. Your doctor will discuss this with you. CALL YOUR DOCTOR FOR ANY OF THE FOLLOWING: *If bleeding from the puncture site occurs- Apply gentle pressure to site with clean cloth and call your doctor or EMS. * If a knot or lump forms under the skin, increases in size, or causes pain. * If bruising appears to be worsening or moving further down your leg instead of disappearing. * Temperature above 101 F. CARE OF YOUR GROIN INCISION; * Bruising or purple discoloration of the skin near the puncture site is common. * You may shower only, no bathtub bathing for 5 days. Be careful to avoid slipping as your leg may feel stiff. * If a closure device was used on your femoral artery, please see the attached guide regarding care of the device and your leg. * Leave dressing on FOR 24 hours. CARE OF YOUR WRIST INCISION; * Bruising or purple discoloration of the skin near the puncture site is common. * You may shower. * DO NOT submerge wrist. * Leave dressing on FOR 24 hours. ANDREWS REAVES MD Jan 18, 2022 14:21
--- NOTE | 2022-01-18 14:25 | Cardiac Cath Report ---
Cardiac Cath Report Physician (s)/Senior Reservations Agent (s) Physician ANDREWS MILLS MD Pre-Procedure Diagnosis Pre-Procedure Diagnosis: Coronary artery disease Post-Procedure Note Procedure Start Date: Jan 18, 2022 Name of Procedure: Left heart catheterization Aortic arch angiogram Findings/Procedure Note PROCEDURE NOTE: 56-year-old lady with history of recurrent palpitation, had an abnormal stress test, scheduled for cardiac catheterization possible PTCA. After explaining the procedure to the patient, all pros and cons were explained, all questions were answered. The patient signed the consent and then she was placed on the cardiac catheterization laboratory. Groin was prepped SL fashion local anesthesia was used. Sheath placed in the right radial artery, A[place] catheter was advanced through the aortic valve to the left ventricular cavity, pressure was measured, pullback LV to aorta was done, engaged left coronary system, I was unable to engage the right coronary system, exchanged the catheter and used Andrea right catheter and engaged the right coronary system. At the end of the procedure the sheath was removed. Vascular band was used FINDINGS: Hemodynamics LV 126/25 end-diastolic pressure 25 Aorta 179/107 mean of 132 ANATOMY: Left Main is free of obstructive disease Left Anterior Descending has mild disease nonobstructive disease Left Circumflex has mild disease nonobstructive disease Right Coronary Artery has mild disease nonobstructive disease LV Gram was not done, pressure was measured Aorta evaluation done with aortic arch angiogram showing normal aortic arch, no dissection or aneurysm, normal origin of the brachiocephalic artery, left carotid and left subclavian arteries CONCLUSION: 1. Mild coronary artery disease nonobstructive disease 2. Normal aortic arch, no dissection or aneurysm DISCUSSION AND RECOMMENDATION: Medical therapy is recommended no intervention is needed Anesthesia Type: Conscious Sedation Estimated blood loss (mL): 15 ml Contrast Amount: 55 ml Total Radiation Dose: 542 mGy Post-Procedure Diagnosis Post-operative diagnosis: Chest pain Palpitation Coronary artery disease Hypertension ANDREWS MILLS MD Jan 18, 2022 14:25
== END 2022-01-18 16:45 | disposition home or self-care (01) ==
LOC: CATH 10:55
PROVIDERS: ATTEND Internal Medicine Cardiovascular Disease
DX: I25.10 Atherosclerotic heart disease of native coronary artery without angina pectoris (principal); I10 Essential (primary) hypertension; R00.2 Palpitations; I49.9 Cardiac arrhythmia, unspecified; E78.2 Mixed hyperlipidemia; Z87.891 Personal history of nicotine dependence; Z79.899 Other long term (current) drug therapy
CPT/HCPCS: 36221; 71045; 80053; 80061; 85027; 85610; 85730; 87081; 93005; 93458; C1894; 36415

== ENCOUNTER → 2022-01-18 | Outpatient (CLI) | payer MEDICARE, MEDICAID ==
[~2022-01-18] MED LIST changes: +BUPR-104 PO; -BUPR100T8 PO; +OMEP20TA56 PO; -OMEP20TA7 PO
== END ==
LOC: CARD 10:48
PROVIDERS: ATTEND Internal Medicine Cardiovascular Disease
DX: Z53.9 Procedure and treatment not carried out, unspecified reason (principal)

== ENCOUNTER 2022-04-11 19:26 | Emergency (ER) | payer MEDICARE, MEDICAID ==
[~2022-04-11] VITALS: Ht 160 cm; Wt 122.0 kg
[~2022-04-11 19:26] MED LIST changes: +ASPI-1238 PO; +BUPR-104 PO; -BUPR100T8 PO; +ERGO1250 PO; +LISI1TAB48 PO; +MELO15TA14 PO; +MULT-1009 PO; +OMEP20TA56 PO; +PRD50T PO; +TIZA4CAP8 PO
[2022-04-11 20:08] LABS: BASOPHILS # (AUTO) 0.1 10^3/uL (0.0-0.1); BASOPHILS % (AUTO) 1 % (0-10); EOSINOPHILS # (AUTO) 0.2 10^3/uL (0.0-0.3); EOSINOPHILS % (AUTO) 3 % (0-10); HEMATOCRIT 35 % (35-52); LYMPHOCYTES # (AUTO) 2.9 10^3/uL (1.0-4.0); LYMPHOCYTES % (AUTO) 40 % (12-44); MEAN CORPUSCULAR HEMOGLOBIN 28 pg (25-34); MEAN CORPUSCULAR HGB CONC 31 g/dL (32-36); MEAN CORPUSCULAR VOLUME 91 fL (80-99); MEAN PLATELET VOLUME 10.5 fL (9.0-12.2); MONOCYTES # (AUTO) 0.5 10^3/uL (0.0-1.0); MONOCYTES % (AUTO) 7 % (0-12); NEUTROPHILS # (AUTO) 3.7 10^3/uL (1.8-7.8); NEUTROPHILS % (AUTO) 49 % (42-75); PLATELET COUNT 382 10^3/uL (130-400); WHITE BLOOD COUNT 7.4 10^3/uL (4.3-11.0)
--- NOTE | 2022-04-11 20:13 | ED Cardiac General ---
History of Present Illness General Chief Complaint: Cardiac/General Problems Stated Complaint: ABNORMAL EKG Source: patient Exam Limitations: no limitations History of Present Illness Date Seen by Provider: Apr 11, 2022 Time Seen by Provider: 19:46 Initial Comments Patient to the ER by private conveyance from [facility] with chief complaint she has been having some feeling of being rundown of the past couple days and a headache. They told her that she had an abnormal EKG and sent her here. Patient was recently increased from 25 mg metoprolol XL to [address] August, cardiology at [facility]. She is also on amiodarone twice a day. She has been taking her medications as prescribed. She occasionally uses Lasix but has not needed it for the past week or so. She is on hydrochlorothiazide. She is followed by Dr. Jelly rios. She has a history of atrial fibrillation and it is working on getting a cardiac ablation for her atrial fibrillation. She was alarmed because when she had a headache and checked her blood pressure it was high 1 70-1 90 systolic. Allergies and Home Medications Allergies Coded Allergies: No Known Allergies (Verified Allergy, Unknown, 07/09/18) Sulfa (Sulfonamide Antibiotics) (Verified Allergy, Unknown, 08/14/21) acetaminophen (Verified Allergy, Unknown, 08/14/21) oxycodone (Verified Allergy, Unknown, 08/14/21) Patient Home Medication List Home Medication List Reviewed: Yes Acetaminophen (Tylenol Extra Strength) 500 Mg Tablet, 500-1,000 MG PO Q6H PRN for PAIN-MILD, (Reported) Entered as Reported by: MICHAEL JENKINS on 07/09/18 1306 Aspirin (Aspirin EC) 81 Mg Tablet.dr, 81 MG PO DAILY, (Reported) Entered as Reported by: NEETA MILLER on 01/18/22 1157 Bupropion HCl (Bupropion HCl Sr) 100 Mg Tablet.er, 100 MG PO DAILY, (Reported) Entered as Reported by: JOHANNA SCOTT on 12/07/21 1227 Ergocalciferol (Vitamin D2) (Vitamin D2) 1,250 Mcg Capsule, 1,250 MCG PO WEEK, (Reported) Entered as Reported by: NEETA MILLER on 01/18/22 1157 Estradiol (Estradiol Tablet) 1 Mg Tablet, 1 MG PO DAILY, (Reported) Entered as Reported by: MICHAEL JENKINS on 07/09/18 1247 Fish Oil/Borage/Flax/Om3,6,9#1 ([place] 3-6-9 1,200 mg Softgel) 1,200 Mg Capsule, 1,200 MG PO DAILY, (Reported) Entered as Reported by: JOHANNA SCOTT on 12/07/21 1227 Fluticasone/Umeclidin/Vilanter (Trelegy Ellipta 100-62.5-25) 1 Each Blst.w.dev, 1 EACH IH DAILY, (Reported) Entered as Reported by: JOHANNA SCOTT on 12/07/21 1227 Gabapentin (Gabapentin) 300 Mg Capsule, 900 MG PO TID, (Reported) Entered as Reported by: MICHAEL JENKINS on 07/09/18 1256 Hydrocodone/Acetaminophen (Hydrocodone-Acetamin 5-325 mg) 1 Each Tablet, 1 TAB PO Q4H PRN for PAIN-MODERATE (5-7), (Reported) Entered as Reported by: NEETA MILLER on 01/18/22 1210 Lactobacillus Combination No.4 (Probiotic) 1 Each Capsule, 1 EACH PO DAILY, (Reported) Entered as Reported by: JOHANNA SCOTT on 12/07/21 1227 Lisinopril/Hydrochlorothiazide (Lisinopril-Hctz 20-25 mg Tab) 1 Each Tablet, 1 EACH PO DAILY, (Reported) Entered as Reported by: NEETA MILLER on 01/18/22 1157 Meloxicam (Mobic) 15 Mg Tablet, 15 MG PO DAILY, (Reported) Entered as Reported by: NEETA MILLER on 01/18/22 1157 Metoprolol Succinate (Metoprolol Succinate) 25 Mg Tab.er.24h, 25 MG PO DAILY, ( Reported) Entered as Reported by: JOHANNA SCOTT on 12/07/21 1227 Multivits,Ca,Minerals/Iron/FA (Thera M Plus Tablet) 1 Each Tablet, 1 EACH PO DAILY, (Reported) Entered as Reported by: NEETA MILLER on 01/18/22 1157 Omeprazole (Omeprazole) 20 Mg Tablet.dr, 20 MG PO DAILY, (Reported) Entered as Reported by: NEETA MILLER on 01/18/22 115 Prednisone (Prednisone) 50 Mg Tab, 50 MG PO DAILY, (Reported) Entered as Reported by: NEETA MILLER on 01/18/22 1210 Simvastatin (Simvastatin) 40 Mg Tablet, 40 MG PO HS, (Reported) Entered as Reported by: MICHAEL JENKINS on 07/09/18 1247 Tizanidine HCl (Tizanidine HCl) 4 Mg Capsule, 4 MG PO Q6H PRN for SPASMS, (Reported) Entered as Reported by: NEETA MILLER on 01/18/22 1210 Vilazodone Hydrochloride (Viibryd) 40 Mg Tablet, 40 MG PO DAILY, (Reported) Entered as Reported by: OLEKSANDR NEWELL on 03/08/20 1548 Review of Systems Review of Systems Constitutional: No chills, No diaphoresis EENTM: No Blurred Vision, No Double Vision Respiratory: Denies Cough, Denies Shortness of Air Cardiovascular: See HPI; Denies Chest Pain, Denies Edema, Denies Lightheadedness Gastrointestinal: Denies Abdominal Pain, Denies Constipated, Denies Diarrhea Genitourinary: Denies Burning, Denies Discharge Musculoskeletal: No back pain, No joint pain All Other Systems Reviewed Negative Unless Noted: Yes Past Wcvypra-Fkagzv-Tnwsua Hx Patient Social History Tobacco Use?: No Use of E-Cig and/or Vaping dev: No Immunizations Up To Date Tetanus Booster (TDap): Unknown PED Vaccines UTD: No First/Initial COVID19 Vaccinat: January 2021 Second COVID19 Vaccination Wes: February 2021 Third COVID19 Vaccination Date: NO Seasonal Allergies Seasonal Allergies: No Past Medical History Surgery/Hospitalization HX: hysterectomy, GB, appendix COPD, neuropathy, htn Surgeries: Yes (diskectomy; laminectomy, back sx) Appendectomy, Gallbladder, Hysterectomy Respiratory: Yes COPD Cardiac: Yes High Cholesterol, Hypertension, Palpitations Neurological: No Reproductive Disorders: No (HAS 3 GROWN CHILDREN) Female Reproductive Disorders: Denies Sexually Transmitted Disease: No HIV/AIDS: No Genitourinary: No Gastrointestinal: Yes Colitis, Gastroesophageal Reflux, Polyps, Ulcer Musculoskeletal: Yes Back Injury, Chronic Back Pain Endocrine: No HEENT: No Cancer: No Psychosocial: Yes Depression Integumentary: No Blood Disorders: No Adverse Reaction/Blood Tranf: No Family Medical History Arthritis Asthma Cardiovascular disease Colon cancer Completed stroke FH: colon cancer Hypertension Myocardial infarction Psychosocial problem Respiratory disorder No Pertinent Family Hx Physical Exam Vital Signs Vital Signs - First Documented 6/14/22 19:38 Temp 36.3 Pulse 46 Resp 16 B/P (MAP) 166/83 (110) Pulse Ox 96 O2 Delivery Room Air Capillary Refill : Height, Weight, BMI Height: 5'5.00" Weight: 248lbs. 2.0oz. 112.304245eq; 47.14 BMI Method:Stated General Appearance: No Apparent Distress, Obese HEENT: PERRL/EOMI, Pharynx Normal, Moist Mucous Membranes Neck: Full Range of Motion, Normal Inspection, Non Tender Respiratory: Lungs Clear, Normal Breath Sounds, No Accessory Muscle Use, No Respiratory Distress Cardiovascular: Regular Rate, Rhythm, No Edema, Normal Peripheral Pulses Gastrointestinal: Normal Bowel Sounds, Non Tender, Soft Extremity: Normal Capillary Refill, Normal Inspection, Normal Range of Motion, No Pedal Edema Neurologic/Psychiatric: Alert, Oriented x3 Skin: Normal Color, Warm/Dry Progress/Results/Core Measures Results/Orders Lab Results Laboratory Tests Test 04/11/22 19:45 Range/Units White Blood Count 7.4 4.3-11.0 10^3/uL Red Blood Count 3.89 3.80-5.11 10^6/uL Hemoglobin 11.0 L 11.5-16.0 g/dL Hematocrit 35 35-52 % Mean Corpuscular Volume 91 80-99 fL Mean Corpuscular Hemoglobin 28 25-34 pg Mean Corpuscular Hemoglobin Concent 31 L 32-36 g/dL Red Cell Distribution Width 14.9 H 10.0-14.5 % Platelet Count 382 130-400 10^3/uL Mean Platelet Volume 10.5 9.0-12.2 fL Immature Granulocyte % (Auto) 0 % Neutrophils (%) (Auto) 49 42-75 % Lymphocytes (%) (Auto) 40 12-44 % Monocytes (%) (Auto) 7 0-12 % Eosinophils (%) (Auto) 3 0-10 % Basophils (%) (Auto) 1 0-10 % Neutrophils # (Auto) 3.7 1.8-7.8 10^3/uL Lymphocytes # (Auto) 2.9 1.0-4.0 10^3/uL Monocytes # (Auto) 0.5 0.0-1.0 10^3/uL Eosinophils # (Auto) 0.2 0.0-0.3 10^3/uL Basophils # (Auto) 0.1 0.0-0.1 10^3/uL Immature Granulocyte # (Auto) 0.0 0.0-0.1 10^3/uL Sodium Level 143 135-145 MMOL/L Potassium Level 3.7 3.6-5.0 MMOL/L Chloride Level 105 98-107 MMOL/L Carbon Dioxide Level 25 21-32 MMOL/L Anion Gap 13 5-14 MMOL/L Blood Urea Nitrogen 22 H 7-18 MG/DL Creatinine 1.19 0.60-1.30 MG/DL Estimat Glomerular Filtration Rate 54 BUN/Creatinine Ratio 18 Glucose Level 105 70-105 MG/DL Calcium Level 9.3 8.5-10.1 MG/DL Corrected Calcium 9.5 8.5-10.1 MG/DL Total Bilirubin 0.2 0.1-1.0 MG/DL Aspartate Amino Transf (AST/SGOT) 14 5-34 U/L Alanine Aminotransferase (ALT/SGPT) 16 0-55 U/L Alkaline Phosphatase 66 40-136 U/L Troponin I < 0.028 <0.028 NG/ML C-Reactive Protein High Sensitivity 1.59 H 0.00-0.50 MG/DL Total Protein 6.7 6.4-8.2 GM/DL Albumin 3.7 3.2-4.5 GM/DL My Orders Orders - RUFINA,KUMAR J Chest 1 View, Ap/Pa Only (04/11/22 20:01) Cbc With Automated Diff (04/11/22 20:01) Comprehensive Metabolic Panel (04/11/22 20:01) Hs C Reactive Protein (04/11/22 20:01) Troponin I Amelia (04/11/22 20:01) Continuous Ekg Monitoring (04/11/22 20:01) Ed Iv/Invasive Line Start (04/11/22 20:15) Ns Iv 500 Ml (Sodium Chloride 0.9%) (04/11/22 20:15) Medications Given in ED Current Medications Medications Dose Ordered Sig/Shannan Route Start Time Stop Time Status Last Admin Dose Admin Sodium Chloride 500 ml @ 0 mls/hr Q0M ONCE IV 04/11/22 20:15 04/11/22 20:16 DC 04/11/22 20:38 0 MLS/HR Vital Signs/I&O 04/11/22 19:38 Temp 36.3 Pulse 46 Resp 16 B/P (MAP) 166/83 (110) Pulse Ox 96 O2 Delivery Room Air Progress Progress Note #1: Time: 20:14 Progress Note Symptomatic bradycardia likely due to beta-blockers and amiodarone. We are going to give her a little IV fluids and observe her briefly. If she is still symptomatic we will talk to cardiology about an overnight observation on telemetry. Progress Note #2: Time: 21:23 Progress Note Patient resting comfortably. Blood pressure 136/70. Heart rate has remained in 45-50 range. Discussed the case with Dr. Stuart who recommends holding the metoprolol, continuing amiodarone and follow-up next week with Dr. Reaves. Initial ECG Impression Date: Apr 11, 2022 Initial ECG Impression Time: 19:47 Initial ECG Rate: 45 Initial ECG Rhythm: S.Tom Initial ECG Intervals: Normal Initial ECG Impression: Nonspecific Changes, Sinus Bradycardia Initial ECG Comparisson: Changed Comment Sinus bradycardia without clinically relevant ST elevation or depression. Compared to EKG sent over from the clinic with her it looks the same with a h eart rate of 48, sinus bradycardia. Diagnostic Imaging Diagonstic Imaging: Xray Plain Films/CT/US/NM/MRI: chest Comments [facility], [place] NAME: JEFF TALAVERA [facility] REC#: [id number] PT STATUS: REG ER : 1965 PHYSICIAN: KUMAR ALMARAZ MD ADMIT DATE: 04/11/22/ER Draft Date of Exam:04/11/22 CHEST 1 VIEW, AP/PA ONLY EXAM: CHEST 1 VIEW, AP/PA ONLY INDICATION: Bradycardia. Headache. COMPARISON: 01/18/2022. FINDINGS: Normal heart size and pulmonary vascularity. No dense consolidation, pleural effusion or pneumothorax. No acute osseous findings. No significant change. IMPRESSION: Negative chest. Dictated on workstation # [id number] Dict: 04/11/222056 Trans: 04/11/222058 [facility] [id number] Interpreted by: MEL JOHNSON MD Electronically signed by: Reviewed: Reviewed by Me Departure Impression Primary Impression: Bradycardia Disposition: 01 HOME, SELF-CARE Condition: Stable Departure-Patient Inst. Decision time for Depature: 21:24 Referrals: ADÁN FARFAN MD (PCP/Family) Primary Care Physician ANDREWS REAVES MD Patient Instructions: Bradycardia (DC) Add. Discharge Instructions: We're going to hold your metoprolol for the next week and see if this helps with your symptoms. Follow-up with Dr. Reaves in the following 1 to 2 weeks. All discharge instructions reviewed with patient and/or family. Voiced understanding. Copy Copies To 1: ANDREWS REAVES MD, TITUS J Apr 11, 2022 20:13
[2022-04-11] MEDS ORDERED: NS IV 500 ML 500 ML IV ONE (20:15)
[2022-04-11 20:23] LABS: ALANINE AMINOTRANSFERASE 16 U/L (0-55); ALBUMIN 3.7 GM/DL (3.2-4.5); ALKALINE PHOSPHATASE 66 U/L (40-136); BILIRUBIN,TOTAL 0.2 MG/DL (0.1-1.0); BUN/CREATININE RATIO 18; CALCIUM 9.3 MG/DL (8.5-10.1); CARBON DIOXIDE 25 MMOL/L (21-32); CHLORIDE 105 MMOL/L (98-107); CREATININE SERUM 1.19 MG/DL (0.60-1.30); GFR ESTIMATED 54; GLUCOSE 105 MG/DL (70-105); POTASSIUM 3.7 MMOL/L (3.6-5.0); SODIUM 143 MMOL/L (135-145); TOTAL PROTEIN 6.7 GM/DL (6.4-8.2)
--- NOTE | 2022-04-11 20:59 | Diagnostic Imaging Report ---
EXAM: CHEST 1 VIEW, AP/PA ONLY INDICATION: Bradycardia. Headache. COMPARISON: 01/18/2022. FINDINGS: Normal heart size and pulmonary vascularity. No dense consolidation, pleural effusion or pneumothorax. No acute osseous findings. No significant change. IMPRESSION: Negative chest. Dictated by: Dictated on workstation # [id number]
[2022-04-11 21:41] VITALS: BP 134/85
== END 2022-04-11 21:39 | disposition home or self-care (01) ==
LOC: EDUNIT# 19:26 → ER 19:27
DX: R00.1 Bradycardia, unspecified (principal); I10 Essential (primary) hypertension; Z79.899 Other long term (current) drug therapy
CPT/HCPCS: 36415; 71045; 80053; 84484; 85025; 86141; 93005

== ENCOUNTER 2022-05-04 20:35 | Outpatient (CLI) | payer MEDICARE, MEDICAID | END 2022-05-05 06:10 | disposition home or self-care (01) | LOC: SLEEP 20:35 | PROVIDERS: ATTEND Internal Medicine | DX: Z00.00 Encounter for general adult medical examination without abnormal findings (principal); Z23 Encounter for immunization; G47.33 Obstructive sleep apnea (adult) (pediatric); G47.10 Hypersomnia, unspecified; J44.9 Chronic obstructive pulmonary disease, unspecified; I34.1 Nonrheumatic mitral (valve) prolapse; M17.10 Unilateral primary osteoarthritis, unspecified knee; I10 Essential (primary) hypertension; K21.9 Gastro-esophageal reflux disease without esophagitis; E78.5 Hyperlipidemia, unspecified | CPT/HCPCS: 95811 ==

== ENCOUNTER → 2022-07-11 | Outpatient (CLI) | payer MEDICARE, MEDICAID ==
[~2022-07-11] MED LIST changes: +LEVO750T PO; -LEVO750T39 PO
--- NOTE | 2022-07-11 09:54 | Diagnostic Imaging Report ---
INDICATION: Screening for osteopenia, postmenopausal state. COMPARISON: 11/04/2019. FINDINGS: AP Spine L1-L4: [BMD (g/cm2): NA] [T-Score: NA] [Z-Score: NA] [BMD Previous: NA] [BMD % Change: NA] LT Hip Neck: [BMD (g/cm2): 0.751] [T-Score: -2.1] [Z-Score: -1.7] LT Hip Total: [BMD (g/cm2):0.932] [T-Score:-0.6] [Z-Score: -0.7] [BMD Previous: 0.970] [BMD % Change: -3.9] RT Hip Neck: [BMD (g/cm2):0.704] [T-Score:-2.4] [Z-Score:-2.1] RT Hip Total: [BMD (g/cm2):0.865] [T-score:-1.1] [Z-Score:-1.2] [BMD Previous:0.941] [BMD % Change:-8.1]* *Indicates significant change from prior examination based on 95% confidence level. World Health Organization criteria for BMD interpretation classify patients as Normal (T-score at or above -1.0), Osteopenic (T-score between -1.0 and -2.5) or Osteoporotic (T-score at or below -2.5). LIMITATIONS AND MODIFICATION: The lumbar spine was not evaluated secondary to post surgical changes. FRACTURE RISK (FRAX SCORE): The ten year probability of (%): Major Osteoporotic Fracture: [14.3] Hip Fracture: [2.4] IMPRESSION: 1. Osteopenia (Low bone mass). 2. Bone mineral density within the right hip has significantly decreased since the prior examination. 3. See below National Osteoporosis Foundation guidelines on when to potentially initiate pharmacologic therapy. Based on the National Osteoporosis Foundation Guidelines, pharmacologic treatment should be initiated in any of the following, unless clinical conditions suggest otherwise: * Any patient with prior fragility fracture of the hip or vertebrae. A spine fracture indicates 5X risk for subsequent spine fracture and 2X risk for subsequent hip fracture. * Osteoporosis (T-score <-2.5). * Postmenopausal women and men age 50 and older with low bone mass/osteopenia (T-score between -1.0 and -2.5) by DXA and 10-year major osteoporotic fracture greater than 20% or a 10-year probability of hip fracture greater than 3%. These fracture risks are supplied above in the FRAX score, if applicable. * Clinician judgement and/or patient preferences may indicate treatment for people with 10-year fracture probabilities above or below these levels. Dictated by: Dictated on workstation # [id number]
== END ==
LOC: RAD 08:48
PROVIDERS: ATTEND Internal Medicine
DX: Z13.820 Encounter for screening for osteoporosis (principal); M85.88 Other specified disorders of bone density and structure, other site; Z78.0 Asymptomatic menopausal state
CPT/HCPCS: 77080

== ENCOUNTER 2022-09-22 14:25 | Emergency (ER) | payer MEDICARE, MEDICAID ==
[~2022-09-22] VITALS: Ht 160 cm; Wt 119.7 kg
--- NOTE | 2022-09-22 15:23 | ED Lower Extremity ---
General Chief Complaint: Lower Extremity Stated Complaint: BROKEN CAST ON BROKEN LT FOOT Nursing Triage Note: PT AMB TO TRIAGE W REPORTS OF BROKEN CAST TO LEFT LOW EXT SX 09/20/22. DR. HAWK WHO PUT CAST ON IS NOT IN OFFICE TODAY. PT A&OX4, C/O PAIN W AMBULATION D/T BROKEN CAST. (HALLIE RUIZ APRN) History of Present Illness Date Seen by Provider: Sep 22, 2022 Time Seen by Provider: 14:45 Initial Comments Patient is a 57-year-old female who presents to the emergency department for evaluation of a broken cast to her left foot/ankle. Cast was placed by Dr. Hawk last Sunday where she was diagnosed with what sounds like a left fifth metatarsal fracture. She denies any specific trauma leading to the fracture. She states she is not having any pain outside of the pain caused on the broken part of the cast digs into the bottom of her left foot. She was told that she was able to bear weight on the affected extremity. She presents with a walking boot that she had at home from her previous fracture. She indicates that she would like to use the walking boot in lieu of the cast if possible. She has not taken any medicines today. (HALLIE RUIZ APRN) Allergies and Home Medications Allergies Coded Allergies: No Known Allergies (Verified Allergy, Unknown, 07/09/18) Sulfa (Sulfonamide Antibiotics) (Verified Allergy, Unknown, 08/14/21) acetaminophen (Verified Allergy, Unknown, 08/14/21) oxycodone (Verified Allergy, Unknown, 08/14/21) Patient Home Medication List Home Medication List Reviewed: Yes (HALLIE RUIZ APRN) Acetaminophen (Tylenol Extra Strength) 500 Mg Tablet, 500-1,000 MG PO Q6H PRN for PAIN-MILD, (Reported) Entered as Reported by: MICHAEL JENKINS on 07/09/18 1306 Aspirin (Aspirin EC) 81 Mg Tablet.dr, 81 MG PO DAILY, (Reported) Entered as Reported by: NEETA MILLER on 01/18/22 1157 Bupropion HCl (Bupropion HCl Sr) 100 Mg Tablet.er, 100 MG PO DAILY, (Reported) Entered as Reported by: JOHANNA SCOTT on 12/07/21 1227 Ergocalciferol (Vitamin D2) (Vitamin D2) 1,250 Mcg Capsule, 1,250 MCG PO WEEK, (Reported) Entered as Reported by: NEETA MILLER on 01/18/22 1157 Estradiol (Estradiol Tablet) 1 Mg Tablet, 1 MG PO DAILY, (Reported) Entered as Reported by: MICHAEL JENKINS on 07/09/18 1247 Fish Oil/Borage/Flax/Om3,6,9#1 ([place] 3-6-9 1,200 mg Softgel) 1,200 Mg Capsule, 1,200 MG PO DAILY, (Reported) Entered as Reported by: JOHANNA SCOTT on 12/07/21 1227 Fluticasone/Umeclidin/Vilanter (Trelegy Ellipta 100-62.5-25) 1 Each Blst.w.dev, 1 EACH IH DAILY, (Reported) Entered as Reported by: JOHANNA SCOTT on 12/07/21 1227 Gabapentin (Gabapentin) 300 Mg Capsule, 900 MG PO TID, (Reported) Entered as Reported by: MICHAEL JENKINS on 07/09/18 1256 Hydrocodone/Acetaminophen (Hydrocodone-Acetamin 5-325 mg) 1 Each Tablet, 1 TAB PO Q4H PRN for PAIN-MODERATE (5-7), (Reported) Entered as Reported by: NEETA MILLER on 01/18/22 1210 Lactobacillus Combination No.4 (Probiotic) 1 Each Capsule, 1 EACH PO DAILY, (Reported) Entered as Reported by: JOHANNA SCOTT on 12/07/21 1227 Lisinopril/Hydrochlorothiazide (Lisinopril-Hctz 20-25 mg Tab) 1 Each Tablet, 1 EACH PO DAILY, (Reported) Entered as Reported by: NEETA MILLER on 01/18/22 1157 Meloxicam (Mobic) 15 Mg Tablet, 15 MG PO DAILY, (Reported) Entered as Reported by: NEETA MILLER on 01/18/22 115 Metoprolol Succinate (Metoprolol Succinate) 25 Mg Tab.er.24h, 25 MG PO DAILY, (Reported) Entered as Reported by: JOHANNA SCOTT on 12/07/21 1227 Multivits,Ca,Minerals/Iron/FA (Thera M Plus Tablet) 1 Each Tablet, 1 EACH PO DAILY, (Reported) Entered as Reported by: NEETA MILLER on 01/18/22 1157 Omeprazole (Omeprazole) 20 Mg Tablet.dr, 20 MG PO DAILY, (Reported) Entered as Reported by: NEETA MILLER on 01/18/22 1157 Prednisone (Prednisone) 50 Mg Tab, 50 MG PO DAILY, (Reported) Entered as Reported by: NEETA MILLER on 01/18/22 1210 Simvastatin (Simvastatin) 40 Mg Tablet, 40 MG PO HS, (Reported) Entered as Reported by: MICHAEL JENKINS on 07/09/18 1247 Tizanidine HCl (Tizanidine HCl) 4 Mg Capsule, 4 MG PO Q6H PRN for SPASMS, (Reported) Entered as Reported by: NEETA MILLER on 01/18/22 1210 Vilazodone Hydrochloride (Viibryd) 40 Mg Tablet, 40 MG PO DAILY, (Reported) Entered as Reported by: OLEKSANDR NEWELL on 03/08/20 1548 Review of Systems Constitutional: no symptoms reported EENTM: no symptoms reported Respiratory: no symptoms reported Cardiovascular: no symptoms reported Gastrointestinal: no symptoms reported Genitourinary: no symptoms reported Musculoskeletal: see HPI (HALLIE RUIZ APRN) Past Pcigydp-Syqcov-Ehudfl Hx Patient Social History Tobacco Use?: No Use of E-Cig and/or Vaping dev: No Substance use?: No Alcohol Use?: No (HALLIE RUIZ APRN) Immunizations Up To Date Tetanus Booster (TDap): Unknown PED Vaccines UTD: No First/Initial COVID19 Vaccinat: January 2021 Second COVID19 Vaccination Wes: February 2021 Third COVID19 Vaccination Date: AUGUST 2021 COVID19 Vaccine Physical Laboratory Assistant: NALLELY (HALLIE RUIZ APRN) Seasonal Allergies Seasonal Allergies: No (HALLIE RUIZ APRN) Past Medical History Surgery/Hospitalization HX: hysterectomy, GB, appendix, BACK SX COPD, neuropathy, htn, HTN, AFIB Surgeries: Yes (diskectomy; laminectomy, back sx) Appendectomy, Gallbladder, Hysterectomy Respiratory: Yes COPD Cardiac: Yes High Cholesterol, Hypertension, Palpitations Neurological: No Reproductive Disorders: No (HAS 3 GROWN CHILDREN) Female Reproductive Disorders: Denies Sexually Transmitted Disease: No HIV/AIDS: No Genitourinary: No Gastrointestinal: Yes Colitis, Gastroesophageal Reflux, Polyps, Ulcer Musculoskeletal: Yes Back Injury, Chronic Back Pain Endocrine: No HEENT: No Cancer: No Psychosocial: Yes Depression Integumentary: No Blood Disorders: No Adverse Reaction/Blood Tranf: No (HALLIE RUIZ APRN) Family Medical History Arthritis Asthma Cardiovascular disease Colon cancer Completed stroke FH: colon cancer Hypertension Myocardial infarction Psychosocial problem Respiratory disorder No Pertinent Family Hx (HALLIE RUIZ APRN) Physical Exam Vital Signs Vital Signs - First Documented 09/22/22 14:38 Temp 37.0 Pulse 73 Resp 20 B/P (MAP) 137/80 (99) Pulse Ox 95 O2 Delivery Room Air (ELZA FINLEY MD) Vital Signs Capillary Refill : Less Than 3 Seconds (HALLIE RUIZ APRN) Height, Weight, BMI Height: 5'5.00" Weight: 248lbs. 2.0oz. 112.114690nz; 46.00 BMI Method:Stated General Appearance: WD/WN, no apparent distress HEENT: PERRL/EOMI, normal ENT inspection, TMs normal, pharynx normal Neck: non-tender, full range of motion, supple, normal inspection Cardiovascular: regular rate, rhythm Respiratory: chest non-tender, lungs clear, normal breath sounds, no respiratory distress, no accessory muscle use Gastrointestinal: normal bowel sounds, non tender, soft Back: normal inspection, no vertebral tenderness Neurologic/Psychiatric: no motor/sensory deficits, alert, normal mood/affect, oriented x 3 Skin: normal color, warm/dry (HALLIE RUIZ APRN) Progress/Results/Core Measures Results/Orders Vital Signs/I&O 09/22/22 09/22/22 14:38 15:28 Temp 37.0 37.0 Pulse 73 73 Resp 20 20 B/P (MAP) 137/80 (99) 137/80 Pulse Ox 95 95 O2 Delivery Room Air Room Air (ELZA FINLEY MD) Blood Pressure Mean: 99 Progress Progress Note : Progress Note Patient is nontoxic and well-hydrated on exam. There is a portion of the plantar aspect of the cast that does appear to bend with light pressure. This appears to cause the cast to digging into the plantar aspect of the left foot. The cast was removed with a combination of cast saw and trauma arabella. The left foot appears normal without deformity. No significant tenderness to palpation noted along the left metatarsal. Patient placed her walking boot on the left lower extremity. She states this feels much more comfortable. Discussed importance of follow-up with her treating physician. Return precautions for urgent symptomology discussed. Patient verbalized understanding (HALLIE RUIZ APRN) Departure Impression Primary Impression: Problem with fiberglass cast Additional Impression: Cast removal Disposition: 01 HOME, SELF-CARE Condition: Stable Departure-Patient Inst. Decision time for Depature: 15:20 (HALLIE RUIZ APRN) Referrals: ADÁN FARFAN MD (PCP/Family) Primary Care Physician Patient Instructions: Foot Fracture ED ATTENDING PHYSICIAN NOTE: I was physically present as attending physician in the emergency department during the care of this patient, but I was not directly involved in the decision making or delivery of care for this patient. (ELZA FINLEY MD) HALLIE RUIZ APRN Sep 22, 2022 15:23 ELZA FINLEY MD Sep 23, 2022 20:25
[2022-09-22 15:28] VITALS: BP 137/80
== END 2022-09-22 15:28 | disposition home or self-care (01) ==
LOC: EDUNIT# 14:25 → ER 14:27
DX: Z47.89 Encounter for other orthopedic aftercare (principal)
CPT/HCPCS: 99283

== ENCOUNTER 2023-01-25 12:45 | Observation (INO) | payer MEDICARE, MEDICAID ==
[2023-01-25] VITALS (7 sets, daily range): BP systolic 120–144; BP diastolic 61–78
[~2023-01-25] VITALS: Ht 160 cm; Wt 116.3 kg
[~2023-01-25 12:45] MED LIST changes: -POTA10CA43 PO; +POTA10CA44 PO
[2023-01-25 13:19] LABS: BASOPHILS # (AUTO) 0.1 10^3/uL (0.0-0.1); BASOPHILS % (AUTO) 1 % (0-10); EOSINOPHILS # (AUTO) 0.2 10^3/uL (0.0-0.3); EOSINOPHILS % (AUTO) 1 % (0-10); HEMATOCRIT 31 % (35-52); HEMOGLOBIN 9.7 g/dL (11.5-16.0); LYMPHOCYTES # (AUTO) 5.5 10^3/uL (1.0-4.0); LYMPHOCYTES % (AUTO) 42 % (12-44); MEAN CORPUSCULAR HEMOGLOBIN 27 pg (25-34); MEAN CORPUSCULAR HGB CONC 31 g/dL (32-36); MEAN CORPUSCULAR VOLUME 85 fL (80-99); MONOCYTES # (AUTO) 0.9 10^3/uL (0.0-1.0); MONOCYTES % (AUTO) 7 % (0-12); NEUTROPHILS # (AUTO) 6.5 10^3/uL (1.8-7.8); NEUTROPHILS % (AUTO) 49 % (42-75); PLATELET COUNT 460 10^3/uL (130-400); WHITE BLOOD COUNT 13.1 10^3/uL (4.3-11.0)
--- NOTE | 2023-01-25 13:19 | ED Cardiac General ---
History of Present Illness General Chief Complaint: Chest Pain Stated Complaint: CHEST PAINS Nursing Triage Note: PT TO [facility] BY [facility] WITH CC OF CP AND BURNING IN CHEST, HX OF A FIB WITH ABLATION, HR WENT FROM 105 TO 26 ACCORDING TO PT. DIZZINESS, FLUIDS RUNNING ON ARRIVAL, 400 MLS BY EMS, CLEAN CATH A YR AGO Source: patient, EMS History of Present Illness Date Seen by Provider: Jan 25, 2023 Time Seen by Provider: 12:45 Initial Comments 57-year-old female presents via EMS from the [facility] clinic where she was sent over for burning in her chest. They states she had a history of A-fib and thought she was in a junctional rhythm. She tells me she had a cardiac ablation in May and has not really had much trouble since that time. Today she was walking with her friend and felt her heart race. She has a pulse oximeter her previous bout with A-fib so she put it on and her heart rate was in the 110 range. She states she then got severely fatigued, lightheaded and everything "went white." She got dizzy and diaphoretic during this time and states her heart rate went down into the 20s. This did not last very long. She states she is continue to have a burning sensation in her anterior chest off and on since that event. She denies any recent illness. She had a heart cath within the last year which she states was clean per her report. All other systems reviewed and negative except documented per HPI. 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) Allergies and Home Medications Allergies Coded Allergies: No Known Allergies (Verified Allergy, Unknown, 07/09/18) Sulfa (Sulfonamide Antibiotics) (Verified Allergy, Unknown, 08/14/21) acetaminophen (Verified Allergy, Unknown, 08/14/21) oxycodone (Verified Allergy, Unknown, 08/14/21) Patient Home Medication List Home Medication List Reviewed: Yes Acetaminophen (Tylenol Extra Strength) 500 Mg Tablet, 500-1,000 MG PO Q6H PRN for PAIN-MILD, (Reported) Entered as Reported by: MICHAEL JENKINS on 07/09/18 1306 Aspirin (Aspirin EC) 81 Mg Tablet.dr, 81 MG PO DAILY, (Reported) Entered as Reported by: NEETA MILLER on 01/18/22 1157 Bupropion HCl (Bupropion HCl Sr) 100 Mg Tablet.er, 100 MG PO DAILY, (Reported) Entered as Reported by: JOHANNA SCOTT on 12/07/21 1227 Ergocalciferol (Vitamin D2) (Vitamin D2) 1,250 Mcg Capsule, 1,250 MCG PO WEEK, (Reported) Entered as Reported by: NEETA MILLER on 01/18/22 1157 Estradiol (Estradiol Tablet) 1 Mg Tablet, 1 MG PO DAILY, (Reported) Entered as Reported by: MICHAEL JENKINS on 07/09/18 1247 Fish Oil/Borage/Flax/Om3,6,9#1 ([place] 3-6-9 1,200 mg Softgel) 1,200 Mg Capsule, 1,200 MG PO DAILY, (Reported) Entered as Reported by: JOHANNA SCOTT on 12/07/21 122 Fluticasone/Umeclidin/Vilanter (Trelegy Ellipta 100-62.5-25) 1 Each Blst.w.dev, 1 EACH IH DAILY, (Reported) Entered as Reported by: JOHANNA SCOTT on 12/07/21 1227 Gabapentin (Gabapentin) 300 Mg Capsule, 900 MG PO TID, (Reported) Entered as Reported by: MICHAEL JENKINS on 07/09/18 1256 Hydrocodone/Acetaminophen (Hydrocodone-Acetamin 5-325 mg) 1 Each Tablet, 1 TAB PO Q4H PRN for PAIN-MODERATE (5-7), (Reported) Entered as Reported by: NEETA MILLER on 01/18/22 1210 Lactobacillus Combination No.4 (Probiotic) 1 Each Capsule, 1 EACH PO DAILY, (Reported) Entered as Reported by: JOHANNA SCOTT on 12/07/21 1227 Lisinopril/Hydrochlorothiazide (Lisinopril-Hctz 20-25 mg Tab) 1 Each Tablet, 1 EACH PO DAILY, (Reported) Entered as Reported by: NEETA MILLER on 01/18/22 1157 Meloxicam (Mobic) 15 Mg Tablet, 15 MG PO DAILY, (Reported) Entered as Reported by: NEETA MILLER on 01/18/22 1157 Metoprolol Succinate (Metoprolol Succinate) 25 Mg Tab.er.24h, 25 MG PO DAILY, (Reported) Entered as Reported by: JOHANNA SCOTT on 12/07/21 1227 Multivits,Ca,Minerals/Iron/FA (Thera M Plus Tablet) 1 Each Tablet, 1 EACH PO DAILY, (Reported) Entered as Reported by: NEETA MILLER on 01/18/22 1157 Omeprazole (Omeprazole) 20 Mg Tablet.dr, 20 MG PO DAILY, (Reported) Entered as Reported by: NEETA MILLER on 01/18/22 1157 Prednisone (Prednisone) 50 Mg Tab, 50 MG PO DAILY, (Reported) Entered as Reported by: NEETA MILLER on 01/18/22 1210 Simvastatin (Simvastatin) 40 Mg Tablet, 40 MG PO HS, (Reported) Entered as Reported by: MICHAEL JENKINS on 07/09/18 1247 Tizanidine HCl (Tizanidine HCl) 4 Mg Capsule, 4 MG PO Q6H PRN for SPASMS, (Reported) Entered as Reported by: NEETA MILLER on 01/18/22 1210 Vilazodone Hydrochloride (Viibryd) 40 Mg Tablet, 40 MG PO DAILY, (Reported) Entered as Reported by: OLEKSANDR NEWELL on 03/08/20 1548 Review of Systems Review of Systems Constitutional: see HPI Past Yahasrz-Riogub-Wdkmvv Hx Patient Social History Tobacco Use?: No Substance use?: No Alcohol Use?: No Immunizations Up To Date Tetanus Booster (TDap): Unknown PED Vaccines UTD: No First/Initial COVID19 Vaccinat: January 2021 Second COVID19 Vaccination Wes: February 2021 Third COVID19 Vaccination Date: AUGUST 2021 Seasonal Allergies Seasonal Allergies: No Past Medical History Surgery/Hospitalization HX: hysterectomy, GB, appendix, BACK SX, COPD, neuropathy, htn, HTN, AFIB WITH ABLATION Surgeries: Yes (diskectomy; laminectomy, back sx) Appendectomy, Gallbladder, Hysterectomy Respiratory: Yes COPD Cardiac: Yes High Cholesterol, Hypertension, Palpitations Neurological: No Reproductive Disorders: No (HAS 3 GROWN CHILDREN) Female Reproductive Disorders: Denies Sexually Transmitted Disease: No HIV/AIDS: No Genitourinary: No Gastrointestinal: Yes Colitis, Gastroesophageal Reflux, Polyps, Ulcer Musculoskeletal: Yes Back Injury, Chronic Back Pain Endocrine: No HEENT: No Cancer: No Psychosocial: Yes Depression Integumentary: No Blood Disorders: No Adverse Reaction/Blood Tranf: No Family Medical History Reviewed Nursing Family Hx Arthritis Asthma Cardiovascular disease Colon cancer Completed stroke FH: colon cancer Hypertension Myocardial infarction Psychosocial problem Respiratory disorder No Pertinent Family Hx Physical Exam Vital Signs Vital Signs - First Documented 01/25/23 12:52 Temp 36.2 Pulse 66 Resp 22 B/P (MAP) 144/78 (100) Pulse Ox 99 O2 Delivery Room Air Capillary Refill : Less Than 3 Seconds Height, Weight, BMI Height: 5'5.00" Weight: 248lbs. 2.0oz. [id number]; 44.00 BMI Method:Stated General Appearance: No Apparent Distress, WD/WN HEENT: Normal ENT Inspection, Pharynx Normal Neck: Normal Inspection, Non Tender, Supple Respiratory: Chest Non Tender, Lungs Clear, Normal Breath Sounds, No Accessory Muscle Use, No Respiratory Distress Cardiovascular: Regular Rate, Rhythm, No Murmur, Normal Peripheral Pulses, Other (Frequent PVCs with a regular rhythm) Gastrointestinal: Normal Bowel Sounds, No Organomegaly, No Pulsatile Mass, Non Tender, Soft Extremity: Normal Capillary Refill, Normal Inspection, Normal Range of Motion, Non Tender, No Calf Tenderness, No Pedal Edema Neurologic/Psychiatric: Alert, Oriented x3, No Motor/Sensory Deficits Skin: Normal Color, Warm/Dry Progress/Results/Core Measures Results/Orders Lab Results Laboratory Tests Test 01/25/23 13:05 Range/Units White Blood Count 13.1 H 4.3-11.0 10^3/uL Red Blood Count 3.65 L 3.80-5.11 10^6/uL Hemoglobin 9.7 L 11.5-16.0 g/dL Hematocrit 31 L 35-52 % Mean Corpuscular Volume 85 80-99 fL Mean Corpuscular Hemoglobin 27 25-34 pg Mean Corpuscular Hemoglobin Concent 31 L 32-36 g/dL Red Cell Distribution Width 14.7 H 10.0-14.5 % Platelet Count 460 H 130-400 10^3/uL Mean Platelet Volume 10.0 9.0-12.2 fL Immature Granulocyte % (Auto) 0 % Neutrophils (%) (Auto) 49 42-75 % Lymphocytes (%) (Auto) 42 12-44 % Monocytes (%) (Auto) 7 0-12 % Eosinophils (%) (Auto) 1 0-10 % Basophils (%) (Auto) 1 0-10 % Neutrophils # (Auto) 6.5 1.8-7.8 10^3/uL Lymphocytes # (Auto) 5.5 H 1.0-4.0 10^3/uL Monocytes # (Auto) 0.9 0.0-1.0 10^3/uL Eosinophils # (Auto) 0.2 0.0-0.3 10^3/uL Basophils # (Auto) 0.1 0.0-0.1 10^3/uL Immature Granulocyte # (Auto) 0.1 0.0-0.1 10^3/uL Sodium Level 141 135-145 MMOL/L Potassium Level 2.8 L 3.6-5.0 MMOL/L Chloride Level 101 98-107 MMOL/L Carbon Dioxide Level 25 21-32 MMOL/L Anion Gap 15 H 5-14 MMOL/L Blood Urea Nitrogen 23 H 7-18 MG/DL Creatinine 0.86 0.60-1.30 MG/DL Estimat Glomerular Filtration Rate 79 BUN/Creatinine Ratio 27 Glucose Level 86 70-105 MG/DL Calcium Level 8.7 8.5-10.1 MG/DL Corrected Calcium 9.0 8.5-10.1 MG/DL Magnesium Level 1.9 1.6-2.4 MG/DL Total Bilirubin 0.3 0.1-1.0 MG/DL Aspartate Amino Transf (AST/SGOT) 16 5-34 U/L Alanine Aminotransferase (ALT/SGPT) 15 0-55 U/L Alkaline Phosphatase 63 40-136 U/L Troponin I < 0.028 <0.028 NG/ML Total Protein 6.6 6.4-8.2 GM/DL Albumin 3.6 3.2-4.5 GM/DL Smear Scan YES My Orders Orders - GERALD MAKI DO Cbc With Automated Diff (01/25/23 12:59) Magnesium (01/25/23 12:59) Chest 1 View, Ap/Pa Only (01/25/23 12:59) Ekg Tracing (01/25/23 12:59) Comprehensive Metabolic Panel (01/25/23 12:59) Ed Iv/Invasive Line Start (01/25/23 12:59) Troponin I Cloud (01/25/23 12:59) Potassium Cl 10meq/50ml Ivpb (Kcl 10 Meq (01/25/23 14:30) Potassium Chloride (Tablet) (K Dur Table (01/25/23 14:30) General/Regular (01/25/23 Lunch) Vital Signs/I&O 01/25/23 12:52 Temp 36.2 Pulse 66 Resp 22 B/P (MAP) 144/78 (100) Pulse Ox 99 O2 Delivery Room Air Blood Pressure Mean: 100 Comment Probable sinus rhythm if there is a P wave in the next last beat in the rhythm strip. Baseline interference makes it difficult to ascertain P waves throughout the rest of the EKG. Regardless it is a supraventricular rhythm with narrow complexes. She has frequent PVCs, every [address] or T wave abnormalities. No STEMI. Departure Communication (Admissions) Patient is hemodynamically stable. She has PVCs about every third beat or so. EKG is difficult to interpret though it does appear to be an underlying sinus rhythm but may be A-fib. Regardless her heart rate is in the 80s and her blood pressures are stable. She was found to be profoundly hypokalemic at 2.8. I ordered 40 p.o. and 40 IV as repletion. I spoke with Dr. Reaves and he has no further orders. I spoke with Dr. Foster who accepts patient in admission at this time. The patient is comfortable agreeable to admission for Impression Primary Impression: Hypokalemia Additional Impressions: Frequent PVCs Near syncope Disposition: ADMITTED INPATIENT Condition: Stable Admissions Decision to Admit Reason: Admit from ER (General) Departure-Patient Inst. Referrals: ADÁN FARFAN MD (PCP/Family) Primary Care Physician GERALD MAKI DO Jan 25, 2023 13:19
[2023-01-25 13:20] LABS: SMEAR SCAN COMMENT YES
[2023-01-25 13:31] LABS: ALBUMIN 3.6 GM/DL (3.2-4.5); POTASSIUM 2.8 MMOL/L (3.6-5.0)
[2023-01-25 13:32] LABS: CALCIUM 8.7 MG/DL (8.5-10.1)
--- NOTE | 2023-01-25 13:33 | Diagnostic Imaging Report ---
CHEST 1 VIEW, AP/PA ONLY Indication: Chest pain. Comparison: 04/11/2022 Findings: No focal airspace disease in the visualized lungs. No pleural effusion or pneumothorax. Normal cardiomediastinal silhouette. Impression: 1. No acute cardiopulmonary process by portable radiography. Dictated by: Dictated on workstation # [id number]
[2023-01-25 13:34] LABS: TOTAL PROTEIN 6.6 GM/DL (6.4-8.2)
[2023-01-25 13:35] LABS: BILIRUBIN,TOTAL 0.3 MG/DL (0.1-1.0)
[2023-01-25 13:37] LABS: CREATININE SERUM 0.86 MG/DL (0.60-1.30)
[2023-01-25 13:40] LABS: MAGNESIUM 1.9 MG/DL (1.6-2.4)
[2023-01-25] MEDS: POTASSIUM CL 10MEQ/50ML IVPB 50 ML IV SCH ×4 (14:27→21:03)
[2023-01-25] MEDS ORDERED: KCL 20 MEQ TAB (K-DUR) PO ONE (14:30)
[2023-01-25] MEDS ORDERED: PATIENT MAY USE OWN MEDS, ALL PO SCH (16:30)
[2023-01-25] MEDS ORDERED: NS IV 1000 ML 1,000 ML IV SCH (16:30)
--- NOTE | 2023-01-25 16:36 | Consultation-Cardiology ---
HPI-Cardiology Cardiology Consultation Date of Consultation 01/25/23 Date of Admission Time Seen by Provider: 16:31 Indication: Near syncope HPI 57-year-old lady with history of palpitation, frequent PVCs and ventricular bigeminy and trigeminy. Patient reported that she was sitting in the car after shopping with her father where she felt irregular heartbeat and palpitation and felt lightheaded that she is going to pass out. Checked her pulse oximetry and reported that her heart rate was over 100 then continue to feel lightheaded and dizzy and her heart rate was 20. Patient went to the [facility] and she was sent to the emergency room. Monitoring her showed sinus rhythm with frequent PVCs and ventricular trigeminy, still having PVCs but asymptomatic at this point. No full syncope. No chest pain Home Medications & Allergies Allergies: Coded Allergies: Sulfa (Sulfonamide Antibiotics) (Verified Allergy, Unknown, 08/14/21) acetaminophen (Verified Allergy, Unknown, 08/14/21) oxycodone (Verified Allergy, Unknown, 08/14/21) Home Medication List Reviewed: Yes GXU-Uqtldf-Yaormd Hx Patient Social History Marital Status: Employed/Student: employed Type Used: Cigarettes 2nd Hand Smoke Exposure: No Recent Hopitalizations: No Have you traveled recently?: No Alcohol Use?: No Immunizations Up To Date Tetanus Booster (TDap): Unknown Date of Pneumonia Vaccine: Jun 28, 2011 Date of Influenza Vaccine: Jul 29, 2022 Past Medical History Discussed below Family Medical History Significant Family History: No Pertinent Family Hx Family History: Arthritis Asthma Cardiovascular disease Colon cancer Completed stroke FH: colon cancer Hypertension Myocardial infarction Psychosocial problem Respiratory disorder Review of Systems-General Review of Systems Constitutional: see HPI, malaise EENTM: see HPI, no symptoms reported Respiratory: no symptoms reported, see HPI Cardiovascular: see HPI; No chest pain, No edema, No Hx of Intervention; palpitations; No syncope, No vascular heart diseas; other (Near syncope) Gastrointestinal: no symptoms reported, see HPI Genitourinary: no symptoms reported, see HPI Musculoskeletal: no symptoms reported, see HPI Skin: no symptoms reported, see HPI Psychiatric/Neurological: No Symptoms Reported, See HPI Reviewed Test Results Reviewed Test Results Lab Laboratory Tests Test 01/25/23 13:05 Range/Units White Blood Count 13.1 H 4.3-11.0 10^3/uL Red Blood Count 3.65 L 3.80-5.11 10^6/uL Hemoglobin 9.7 L 11.5-16.0 g/dL Hematocrit 31 L 35-52 % Mean Corpuscular Volume 85 80-99 fL Mean Corpuscular Hemoglobin 27 25-34 pg Mean Corpuscular Hemoglobin Concent 31 L 32-36 g/dL Red Cell Distribution Width 14.7 H 10.0-14.5 % Platelet Count 460 H 130-400 10^3/uL Mean Platelet Volume 10.0 9.0-12.2 fL Immature Granulocyte % (Auto) 0 % Neutrophils (%) (Auto) 49 42-75 % Lymphocytes (%) (Auto) 42 12-44 % Monocytes (%) (Auto) 7 0-12 % Eosinophils (%) (Auto) 1 0-10 % Basophils (%) (Auto) 1 0-10 % Neutrophils # (Auto) 6.5 1.8-7.8 10^3/uL Lymphocytes # (Auto) 5.5 H 1.0-4.0 10^3/uL Monocytes # (Auto) 0.9 0.0-1.0 10^3/uL Eosinophils # (Auto) 0.2 0.0-0.3 10^3/uL Basophils # (Auto) 0.1 0.0-0.1 10^3/uL Immature Granulocyte # (Auto) 0.1 0.0-0.1 10^3/uL Sodium Level 141 135-145 MMOL/L Potassium Level 2.8 L 3.6-5.0 MMOL/L Chloride Level 101 98-107 MMOL/L Carbon Dioxide Level 25 21-32 MMOL/L Anion Gap 15 H 5-14 MMOL/L Blood Urea Nitrogen 23 H 7-18 MG/DL Creatinine 0.86 0.60-1.30 MG/DL Estimat Glomerular Filtration Rate 79 BUN/Creatinine Ratio 27 Glucose Level 86 70-105 MG/DL Calcium Level 8.7 8.5-10.1 MG/DL Corrected Calcium 9.0 8.5-10.1 MG/DL Magnesium Level 1.9 1.6-2.4 MG/DL Total Bilirubin 0.3 0.1-1.0 MG/DL Aspartate Amino Transf (AST/SGOT) 16 5-34 U/L Alanine Aminotransferase (ALT/SGPT) 15 0-55 U/L Alkaline Phosphatase 63 40-136 U/L Troponin I < 0.028 <0.028 NG/ML Total Protein 6.6 6.4-8.2 GM/DL Albumin 3.6 3.2-4.5 GM/DL Smear Scan YES Physical Exam Physical Exam Vital Signs Vital Signs - First Documented 01/25/23 12:52 Temp 36.2 Pulse 66 Resp 22 B/P (MAP) 144/78 (100) Pulse Ox 99 O2 Delivery Room Air Capillary Refill : Less Than 3 Seconds Height, Weight, BMI Height: 5'5.00" Weight: 248lbs. 2.0oz. 112.349216hw; 44.53 BMI Method:Stated General Appearance: No Apparent Distress, WD/WN HEENT: Normal ENT Inspection, Pharynx Normal Neck: Normal Inspection, Non Tender, Supple Respiratory: Chest Non Tender, Lungs Clear, Normal Breath Sounds, No Accessory Muscle Use, No Respiratory Distress Cardiovascular: Regular Rate, Rhythm, No Murmur, Normal Peripheral Pulses, Other (Frequent PVCs with a regular rhythm) Gastrointestinal: Normal Bowel Sounds, No Organomegaly, No Pulsatile Mass, Non Tender, Soft Extremity: Normal Capillary Refill, Normal Inspection, Normal Range of Motion, Non Tender, No Calf Tenderness, No Pedal Edema Neurologic/Psychiatric: Alert, Oriented x3, No Motor/Sensory Deficits Skin: Normal Color, Warm/Dry A/P-Cardiology Admission Diagnosis Near syncope Palpitation Frequent PVCs Hypertension Assessment/Plan Near syncope, palpitation, variable heart rate. Palpitations, EKG V. Trigeminy, noted to have PVC's and short runs of PAT. Maintained on Toprol XL 25mg. Reports bradycardia with higher dose of beta blockers. Holter monitor done January 09 showing Sinus rhythm with multiple short wide complex tachycardia, probable NSVT 2-7 beats. Multiple short PAT. One episode of SVT with HR 235. Frequent PVCs, V. Couplets, PACs. Patient was referred to Dr. Hoskins, was intolerant to beta blockers d/t bradycardia. Amiodarone was discontinued. Complaining of increased palpitations. Patient reports she had f/u appt with Dr. Hoskins on 10/13/22, underwent Zio patch , Patient was noted to have potassium 2.9, being replaced. Coronary artery disease, nonobstructive disease by cardiac catheterization done in December 2021. Continue to monitor Shortness of breath on exertion, general deconditioning No change from baseline PAF, underwent ablation in May 2022. Maintained on Eliquis 5mg BID. Hypertension, labile blood pressure, currently under good control. Continue to monitor 2D echo was done on January 25, 2023 with normal LV size and ejection fraction 55 to 60%. Normal PA pressure Stress test was done in December 2021 showing baseline hypertension with breast attenuation and reversible ischemia involving the anterior wall and anterior apex, stress score 10, SDS 6, ejection fraction 54%, patient had a cardiac catheterization in December showing mild disease Mild mitral valve prolapse, last echo did not show any significant prolapse. She has mild to moderate pulmonary hypertension. We will continue monitoring. Tobaccoism, stopped smoking in 2018, encouraged to continue with smoking cessation Hyperlipidemia maintained on simvastatin, continue to monitor. BMI is 44, Patient was on Prednisone, working on weight loss, seen by Dr Galvin Reports normal sleep study done 2 years ago. Clinical Quality Measures AMI/AHF: ASA po Prior to arrival: Yes (81 MG) ANDREWS MILLS MD Jan 25, 2023 16:36
[2023-01-25 17:13] LABS: ABSOLUTE RETIC # 62 10e9/uL (24-90)
[2023-01-25 17:22] LABS: RETICULOCYTE % 1.69 % (0.50-2.40)
[2023-01-25 17:46] LABS: EOSINOPHILS % (MANUAL) 2 %; HYPOCHROMASIA MODERATE; LYMPHOCYTES % (MANUAL) 40 %; MONOCYTES % (MANUAL) 5 %; NEUTROPHILS % (MANUAL) 53 %
[2023-01-25 17:47] LABS: PLATELET ESTIMATE SLIGHTLY ELEVATED
[2023-01-25] MEDS ORDERED: ACETAMINOPHEN 325 MG TABLET PO PRN (19:45)
[2023-01-25] MEDS ORDERED: HYDROcodone/APAP 5 MG/325 MG (LORTAB) TAB PO PRN (19:45)
[2023-01-25] MEDS: APIXABAN 5 MG (ELIQUIS) TABLET PO SCH (20:16)
[2023-01-25] MEDS ORDERED: AtorvaSTATin TABLET 10 MG TABLET PO SCH (21:00)
[2023-01-26 03:27] VITALS: BP 102/45
[2023-01-26 05:34] LABS: BASOPHILS # (AUTO) 0.1 10^3/uL (0.0-0.1); BASOPHILS % (AUTO) 1 % (0-10); EOSINOPHILS # (AUTO) 0.3 10^3/uL (0.0-0.3); EOSINOPHILS % (AUTO) 3 % (0-10); HEMATOCRIT 29 % (35-52); HEMOGLOBIN 8.8 g/dL (11.5-16.0); LYMPHOCYTES # (AUTO) 4.2 10^3/uL (1.0-4.0); LYMPHOCYTES % (AUTO) 47 % (12-44); MEAN CORPUSCULAR HEMOGLOBIN 26 pg (25-34); MEAN CORPUSCULAR HGB CONC 31 g/dL (32-36); MEAN CORPUSCULAR VOLUME 85 fL (80-99); MEAN PLATELET VOLUME 10.1 fL (9.0-12.2); MONOCYTES # (AUTO) 0.8 10^3/uL (0.0-1.0); MONOCYTES % (AUTO) 9 % (0-12); NEUTROPHILS # (AUTO) 3.6 10^3/uL (1.8-7.8); NEUTROPHILS % (AUTO) 40 % (42-75); PLATELET COUNT 409 10^3/uL (130-400)
[2023-01-26 05:37] LABS: POTASSIUM 3.4 MMOL/L (3.6-5.0)
[2023-01-26 05:39] LABS: CALCIUM 8.4 MG/DL (8.5-10.1)
[2023-01-26 05:43] LABS: CREATININE SERUM 0.73 MG/DL (0.60-1.30)
[2023-01-26 05:45] LABS: MAGNESIUM 1.9 MG/DL (1.6-2.4)
[2023-01-26] MEDS ORDERED: LEVOTHYROXINE 50 MCG (LEVOTHROID) TAB PO SCH (06:30)
[2023-01-26] MEDS ORDERED: KCL 20 MEQ TAB (K-DUR) PO ONE (06:30)
[2023-01-26 07:36] VITALS: BP 117/48
--- NOTE | 2023-01-26 07:59 | Cardiology Progress Note ---
Subjective Date Seen by Provider: Jan 26, 2023 Time Seen by Provider: 07:57 Subjective/Events-last exam Patient was seen at bedside, laying down comfortably, feeling better. No new complaint Review of Systems General: No Chills, No Night Sweats, No Fatigue, No Malaise, No Appetite, No Other HEENT: No Head Aches, No Visual Changes, No Eye Pain, No Ear Pain, No Dysph ilir, No Sinus Congestion, No Post Nasal Drip, No Sore Throat, No Other Pulmonary: No Dyspnea, No Cough, No Pleuritic Chest Pain, No Other Cardiovascular: No: Chest Pain, Palpitations, Orthopnea, Paroxysmal Noc. Dyspnea, Edema, Lt Headedness, Other Objective-Cardiology Exam Last Set of Vital Signs Vital Signs 01/26/23 07:36 Temp 36.3 Pulse 58 Resp 17 B/P (MAP) 117/48 (71) Pulse Ox 98 O2 Delivery Room Air I&O Intake and Output 01/26/23 00:00 Intake Total 1210 ml Balance 1210 ml Intake Oral 710 ml IV Total 500 ml # Voids 3 Daily Weight Change No General: Alert, Oriented X3, Cooperative HEENT: Atraumatic, PERRLA Neck: Supple, No JVD, No Thyromegaly Lungs: Clear to Auscultation, Normal Air Movement Heart: Regular Rate, Normal S1, Normal S2, No Murmurs Abdomen: Normal Bowel Sounds, Soft, No Tenderness, No Hepatosplenomegaly, No Masses Extremities: No Clubbing, No Cyanosis, No Edema, Normal Pulses, No Tenderness/Swelling Skin: No Rashes, No Breakdown, No Significant Lesion Neuro: Normal Gait, Normal Speech, Strength at 5/5 X4 Ext, Normal Tone, Sensation Intact Psych/Mental Status: Mental Status NL, Mood NL Results Lab Laboratory Tests 01/25/23 13:05 01/26/23 05:02 A/P-Cardiology Admission Diagnosis Near syncope Palpitation Frequent PVCs Hypertension Assessment/Plan Near syncope, palpitation, variable heart rate. Palpitations, EKG V. Trigeminy, noted to have PVC's and short runs of PAT. Maintained on Toprol XL 25mg. Reports bradycardia with higher dose of beta blockers. Holter monitor done January 09 showing Sinus rhythm with multiple short wide complex tachycardia, probable NSVT 2-7 beats. Multiple short PAT. One episode of SVT with HR 235. Frequent PVCs, V. Couplets, PACs. Patient was referred to Dr. Hoskins, was intolerant to beta blockers d/t bradycardia. Amiodarone was discontinued. Complaining of increased palpitations. Patient reports she had f/u appt with Dr. Hoskins on 10/13/22, underwent Zio patch, Feeling better Okay for discharge, discontinue hydrochlorothiazide and decrease lisinopril to 20 mg daily and add potassium 20 mEq daily on discharge please Hypokalemia, received 80 mEq of potassium on 01/25/2023 and will give 40 mEq potassium today Coronary artery disease, nonobstructive disease by cardiac catheterization done in December 2021. Continue to monitor Shortness of breath on exertion, general deconditioning No change from baseline PAF, underwent ablation in May 2022. Maintained on Eliquis 5mg BID. Hypertension, labile blood pressure, currently under good control. Continue to monitor 2D echo was done on January 25, 2023 with normal LV size and ejection fraction 55 to 60%. Normal PA pressure Stress test was done in December 2021 showing baseline hypertension with breast attenuation and reversible ischemia involving the anterior wall and anterior apex, stress score 10, SDS 6, ejection fraction 54%, patient had a cardiac catheterization in December showing mild disease Mild mitral valve prolapse, last echo did not show any significant prolapse. She has mild to moderate pulmonary hypertension. We will continue monitoring. Tobaccoism, stopped smoking in 2018, encouraged to continue with smoking cessation Hyperlipidemia maintained on simvastatin, continue to monitor. BMI is 44, Patient was on Prednisone, working on weight loss, seen by Dr Galvin Reports normal sleep study done 2 years ago. ANDREWS MILLS MD Jan 26, 2023 07:59
[2023-01-26] MEDS ORDERED: BUME0.5T5 PO (08:01)
[2023-01-26] MEDS ORDERED: POTA-53 PO (08:01)
[2023-01-26] MEDS ORDERED: LISI20TA26 PO (08:01)
[2023-01-26] MEDS: APIXABAN 5 MG (ELIQUIS) TABLET PO SCH (08:52)
[2023-01-26] MEDS ORDERED: lisINopril 20 MG (PRINIVIL) TABLET PO SCH (09:00)
[2023-01-26] MEDS ORDERED: amLODIPine 5 MG (NORVASC) TAB PO SCH (09:00)
[2023-01-26] MEDS ORDERED: ENOXAPARIN 40 MG/0.4 ML (LOVENOX) SYR SC SCH (09:00)
--- NOTE | 2023-01-26 09:14 | Short Stay Summary ---
History of Present Illness History of Present Illness Reason for visit/HPI 57 yo female went to the store yesterday and uses a cart due to knee pain, when she got up she felt dizzy and like she was going to pass out, things closing in on her and burning in her chest. She put on her pulse ox and heart rate was around 110, but then as she felt worse, reports heart rate went down to the 20s. She has a history of A fib and had ablation in May and has done fairly well since then. She notes that metoprolol had been stopped due to low heart rate, but that Cardiology told her she could take it if she felt racing heart/palpitations, so she does carry it in her purse, but has not needed it. She reports being on bumetanide for some time but was not on potassium, she says she wasn't aware that it could lower her potassium. Today she feels like her u sual self. Date of Admission Jan 25, 2023 at 15:36 Date of Discharge 01/26/2023 Time Seen by Provider: 09:30 Attending Physician Seng Olson MD Admitting Physician Admitting Physician: Emil Dinh MD Attending Physician: Emil Dinh MD Consult Allergies and Home Medications Allergies Coded Allergies: Sulfa (Sulfonamide Antibiotics) (Verified Allergy, Unknown, 08/14/21) acetaminophen (Verified Allergy, Unknown, 08/14/21) oxycodone (Verified Allergy, Unknown, 08/14/21) Patient Home Medication List Home Medication List Reviewed: Yes Acetaminophen (Tylenol Extra Strength) 500 Mg Tablet, 500-1,000 MG PO Q6H PRN for PAIN-MILD, (Reported) Entered as Reported by: MICHAEL JENKINS on 07/09/18 1306 Last Action: Reviewed Apixaban (Eliquis) 5 Mg Tablet, 5 MG PO BID, (Reported) Entered as Reported by: EMIL DINH on 01/26/23 0916 Last Action: Reviewed Aspirin (Aspirin EC) 81 Mg Tablet.dr, 81 MG PO DAILY, (Reported) Entered as Reported by: NEETA MILLER on 01/18/22 1157 Last Action: Reviewed Atorvastatin Calcium (Atorvastatin Calcium) 10 Mg Tablet, 10 MG PO DAILY, (Reported) Entered as Reported by: EMIL DINH on 3/31/23 0923 Last Action: Reviewed Bumetanide (Bumetanide) 0.5 Mg Tablet, 0.5 MG PO DAILY Prescribed by: ANDREWS MILLS on 01/26/23 08 Bupropion HCl (Bupropion HCl Sr) 100 Mg Tablet.er, 100 MG PO DAILY, (Reported) Entered as Reported by: JOHANNA SCOTT on 12/07/21 1227 Last Action: Reviewed Cartilage/Collagen/Bor/Hyalur (Joint Health Tablet) 40 Mg-10 Mg-5 Mg-3.3 Mg Tablet, 1 EACH PO DAILY, (Reported) Entered as Reported by: EMIL DINH on 01/26/23924 Last Action: Reviewed Cholecalciferol (Vitamin D3) (Vitamin D3) 25 Mcg (1000 Unit) Capsule, 25 MCG PO DAILY, (Reported) Entered as Reported by: EMIL DINH on 01/26/23920 Last Action: Reviewed Estradiol (Estradiol Tablet) 1 Mg Tablet, 1 MG PO DAILY, (Reported) Entered as Reported by: MICHAEL JENKINS on 07/09/18 1247 Last Action: Reviewed Gabapentin (Gabapentin) 300 Mg Capsule, 900 MG PO TID, (Reported) Entered as Reported by: MICHAEL JENKINS on 07/09/18 1256 Last Action: Reviewed Hydrocodone/Acetaminophen (Hydrocodone-Acetamin 5-325 mg) 1 Each Tablet, 1 TAB PO Q4H PRN for PAIN-MODERATE (5-7), (Reported) Entered as Reported by: NEETA MILLER on 01/18/22 1210 Last Action: Reviewed Levothyroxine Sodium (Levothyroxine Sodium) 75 Mcg Tablet, 75 MCG PO DAILY, (Reported) Entered as Reported by: EMIL DINH on 01/26/23924 Last Action: Reviewed Lisinopril (Lisinopril) 20 Mg Tablet, 20 MG PO DAILY Prescribed by: ANDREWS MILLS on 01/26/23 08 Meloxicam (Mobic) 15 Mg Tablet, 15 MG PO DAILY, (Reported) Entered as Reported by: NEETA MILLER on 01/18/22 1157 Last Action: Reviewed Multivits,Ca,Minerals/Iron/FA (Thera M Plus Tablet) 1 Each Tablet, 1 EACH PO DAILY, (Reported) Entered as Reported by: NEETA MILLER on 01/18/221156 Last Action: Reviewed Omeprazole (Omeprazole) 20 Mg Tablet.dr, 20 MG PO DAILY, (Reported) Entered as Reported by: NEETA MILLER on 01/18/221156 Last Action: Reviewed Potassium Chloride (K-Tab ER) 20 Meq Tablet.er, 20 MEQ PO DAILY Prescribed by: ANDREWS MILLS on 01/26/23 0801 Tiotropium [place] (Spiriva Respimat 2.5MCG/ACTUATION) 2.5 Mcg/Actuation Mist.inhal, 2 PUFF INH DAILY, (Reported) Entered as Reported by: EMIL DINH on 01/26/23 0931 Last Action: New Order Tizanidine HCl (Tizanidine HCl) 4 Mg Capsule, 4 MG PO Q6H PRN for SPASMS, (Reported) Entered as Reported by: NEETA MILLER on 01/18/22 1210 Last Action: Reviewed Vilazodone Hydrochloride (Viibryd) 40 Mg Tablet, 40 MG PO DAILY, (Reported) Entered as Reported by: OLEKSANDR NEWELL on 03/08/20 1548 Last Action: Reviewed Discontinued Medications Bumetanide (Bumetanide) 1 Mg Tablet, 1 MG PO DAILY, (Reported) Entered as Reported by: EMIL DINH on 01/26/23 0919 Last Action: Reviewed Ergocalciferol (Vitamin D2) (Vitamin D2) 1,250 Mcg Capsule, 1,250 MCG PO WEEK, (Reported) Entered as Reported by: NEETA MILLER on 01/18/221156 Last Action: Discontinued Fish Oil/Borage/Flax/Om3,6,9#1 ([place] 3-6-9 1,200 mg Softgel) 1,200 Mg Capsule, 1,200 MG PO DAILY, (Reported) Entered as Reported by: JOHANNA SCOTT on 12/07/211226 Fluticasone/Umeclidin/Vilanter (Trelegy Ellipta 100-62.5-25) 1 Each Blst.w.dev, 1 EACH IH DAILY, (Reported) Entered as Reported by: JOHANNA SCOTT on 12/07/211226 Last Action: Discontinued Hydrochlorothiazide (Hydrochlorothiazide) 25 Mg Tablet, 25 MG PO DAILY, (Reported) Entered as Reported by: EMIL DINH on 01/26/23917 Last Action: Reviewed Lactobacillus Combination No.4 (Probiotic) 1 Each Capsule, 1 EACH PO DAILY, (Reported) Entered as Reported by: JOHANNA SCOTT on 12/07/21 122 Last Action: Discontinued Lisinopril (Lisinopril) 40 Mg Tablet, 40 MG PO DAILY, (Reported) Entered as Reported by: EMIL DINH on 01/26/23921 Last Action: Reviewed Lisinopril/Hydrochlorothiazide (Lisinopril-Hctz 20-25 mg Tab) 1 Each Tablet, 1 EACH PO DAILY, (Reported) Entered as Reported by: NEETA MILLER on 01/18/22 1157 Last Action: Discontinued Metoprolol Succinate (Metoprolol Succinate) 25 Mg Tab.er.24h, 25 MG PO DAILY, (Reported) Entered as Reported by: JOHANNA SCOTT on 12/07/21 122 Prednisone (Prednisone) 50 Mg Tab, 50 MG PO DAILY, (Reported) Entered as Reported by: NEETA MILLER on 01/18/22 1210 Last Action: Discontinued Simvastatin (Simvastatin) 40 Mg Tablet, 40 MG PO HS, (Reported) Entered as Reported by: MICHAEL JENKINS on 07/09/18 1247 Last Action: Discontinued Past Hxogmud-Mlllkd-Avesse Hx Patient Social History Marrital Status: Employed/Student: employed Alcohol Beverage of Choice: Beer Smoking Status: Former Smoker Former Smoker, Quit: March 06, 2019 2nd Hand Smoke Exposure: No Recent Hopitalizations: No Have you traveled recently?: No Alcohol Use?: No Pt feels they are or have been: No Immunizations Up To Date Tetanus Booster (TDap): Unknown Pediatric: No Date of Pneumonia Vaccine: Jun 28, 2011 Date of Influenza Vaccine: Jul 29, 2022 Seasonal Allergies Seasonal Allergies: No Surgeries Yes (diskectomy; laminectomy, back sx) Appendectomy, Gallbladder, Hysterectomy Respiratory Yes COPD Cardiovascular Yes Atrial Fibrillation, High Cholesterol, Hypertension, Palpitations Neurological No Reproductive System Hx Reproductive Disorders: No (HAS 3 GROWN CHILDREN) Sexually Transmitted Disease: No HIV/AIDS: No Female Reproductive Disorders: Denies Genitourinary No Gastrointestinal Yes Colitis, Gastroesophageal Reflux, Polyps, Ulcer Musculoskeletal Yes Back Injury, Chronic Back Pain Endocrine History of Endocrine Disorders: No HEENT History of HEENT Disorders: No Cancer No Psychosocial History of Psychiatric Problem: Yes Behavioral Health Disorders: Depression Integumentary History of Skin or Integumenta: No Blood Transfusions History of Blood Disorders: No Adverse Reaction to a Blood Tr: No Family Medical History Family Hx: Arthritis Asthma Cardiovascular disease Colon cancer Completed stroke FH: colon cancer Hypertension Myocardial infarction Psychosocial problem Respiratory disorder Review of Systems Constitutional: No fever Gastrointestinal: No diarrhea, No loss of appetite, No nausea, No vomiting Musculoskeletal: back pain, joint pain Physical Exam Vital Signs Vital Signs - First Documented 01/25/23 12:52 Temp 36.2 Pulse 66 Resp 22 B/P (MAP) 144/78 (100) Pulse Ox 99 O2 Delivery Room Air Capillary Refill : Less Than 3 Seconds Height, Weight, BMI Height: 5'5.00" Weight: 248lbs. 2.0oz. 112.449216do; 45.42 BMI Method:Stated General Appearance: No Apparent Distress, WD/WN Respiratory: Lungs Clear, Normal Breath Sounds Cardiovascular: Regular Rate, Rhythm, No Murmur Extremity: No Pedal Edema Neurologic/Psychiatric: Alert, Normal Mood/Affect Skin: Normal Color, Warm/Dry Clinical Quality Measures AMI/AHF: ASA po Prior to arrival: Yes (81 MG) Short Stay Diagnosis Discharge Diagnosis-Short Stay Admission Diagnosis: Presyncope Bradycardia Chest pain History of atrial fibrillation s/p ablation Hypokalemia Final Discharge Diagnosis: Presyncope Bradycardia Chest pain History of atrial fibrillation s/p ablation Hypokalemia Conclusion Labs Laboratory Tests 01/25/23 13:05: White Blood Count 13.1H, Red Blood Count 3.65L, Hemoglobin 9.7L, Hematocrit 31L, Mean Corpuscular Volume 85, Mean Corpuscular Hemoglobin 27, Mean Corpuscular Hemoglobin Concent 31L, Red Cell Distribution Width 14.7H, Platelet Count 460H, Mean Platelet Volume 10.0, Immature Granulocyte % (Auto) 0, Neutrophils (%) ( Auto) 49, Lymphocytes (%) (Auto) 42, Monocytes (%) (Auto) 7, Eosinophils (%) (Auto) 1, Basophils (%) (Auto) 1, Neutrophils # (Auto) 6.5, Lymphocytes # (Auto) 5.5H, Monocytes # (Auto) 0.9, Eosinophils # (Auto) 0.2, Basophils # (Auto) 0.1, Immature Granulocyte # (Auto) 0.1, Neutrophils % (Manual) 53, Lymphocytes % (Manual) 40, Monocytes % (Manual) 5, Eosinophils % (Manual) 2, Platelet Estimate SLIGHTLY ELEVATED, Percent Immature Platelet Fraction 2.9, Hypochromasia MODERATE, Absolute Reticulocyte Count 62, Percent Reticulocyte Count 1.69, Sodium Level 141, Potassium Level 2.8L, Chloride Level 101, Carbon Dioxide Level 25, Anion Gap 15H, Blood Urea Nitrogen 23H, Creatinine 0.86, Estimat Glomerular Filtration Rate 79, BUN/Creatinine Ratio 27, Glucose Level 86, Calcium Level 8.7, Corrected Calcium 9.0, Magnesium Level 1.9, Total Bilirubin 0.3, Aspartate Amino Transf (AST/SGOT) 16, Alanine Aminotransferase (ALT/SGPT) 15, Alkaline Ph osphatase 63, Troponin I < 0.028, Total Protein 6.6, Albumin 3.6, Smear Scan YES 01/26/23 05:02: White Blood Count 9.0, Red Blood Count 3.38L, Hemoglobin 8.8L, Hematocrit 29L, Mean Corpuscular Volume 85, Mean Corpuscular Hemoglobin 26, Mean Corpuscular Hemoglobin Concent 31L, Red Cell Distribution Width 14.8H, Platelet Count 409H, Mean Platelet Volume 10.1, Immature Granulocyte % (Auto) 0, Neutrophils (%) (Auto) 40L, Lymphocytes (%) (Auto) 47H, Monocytes (%) (Auto) 9, Eosinophils (%) (Auto) 3, Basophils (%) (Auto) 1, Neutrophils # (Auto) 3.6, Lymphocytes # (Auto) 4.2H, Monocytes # (Auto) 0.8, Eosinophils # (Auto) 0.3, Basophils # (Auto) 0.1, Immature Granulocyte # (Auto) 0.0, Sodium Level 143, Potassium Level 3.4L, Chloride Level 107, Carbon Dioxide Level 24, Anion Gap 12, Blood Urea Nitrogen 19H, Creatinine 0.73, Estimat Glomerular Filtration Rate 96, BUN/Creatinine Ratio 26, Glucose Level 92, Calcium Level 8.4L, Magnesium Level 1.9 Conclusion/Plan Pt admitted, potassium replaced, troponin neg and EKG unremarkable. Cardiology consulted and adjusted diuretic and BP meds. She felt well on morning of d/c. EMIL DINH MD Jan 26, 2023 09:14
[2023-01-26] MEDS ORDERED: APIX5TAB PO (09:16)
[2023-01-26] MEDS ORDERED: HYDR25TA4 PO (09:18)
[2023-01-26] MEDS ORDERED: BUME1TAB8 PO (09:19)
[2023-01-26] MEDS ORDERED: CHOL10007 PO (09:21)
[2023-01-26] MEDS ORDERED: LISI40TA9 PO (09:22)
[2023-01-26] MEDS ORDERED: ATOR10TA66 PO (09:23)
[2023-01-26] MEDS ORDERED: LEVO75TA6 PO (09:25)
[2023-01-26] MEDS ORDERED: CART1TAB5 PO (09:25)
[2023-01-26] MEDS ORDERED: TIOT4MIS2 INH (09:31)
== END 2023-01-26 09:34 | disposition home or self-care (01) ==
LOC: EDUNIT# 12:45 → ER 12:46 → CSD 15:36
PROVIDERS: ADMIT Family Medicine; ATTEND Family Medicine
DX: R55 Syncope and collapse (principal); R00.0 Tachycardia, unspecified; R07.9 Chest pain, unspecified; E87.6 Hypokalemia; I48.91 Unspecified atrial fibrillation; I49.3 Ventricular premature depolarization; I25.10 Atherosclerotic heart disease of native coronary artery without angina pectoris; I48.0 Paroxysmal atrial fibrillation; I10 Essential (primary) hypertension; I34.1 Nonrheumatic mitral (valve) prolapse; E78.5 Hyperlipidemia, unspecified; Z87.891 Personal history of nicotine dependence
CPT/HCPCS: 71045; 80048; 80053; 82728; 83540; 83550; 83735 ×2; 84484; 85007; 85025 ×2; 85027; 85045; 85055; 93005; 96366; 96376; 99284; C8929; G0378; 36415; 93306

== ENCOUNTER 2023-02-08 04:11 | Emergency (ER) | payer MEDICARE, MEDICAID ==
[~2023-02-08] VITALS: Ht 160 cm; Wt 113.0 kg
[~2023-02-08 04:11] MED LIST changes: +APIX5TAB PO; +ATOR10TA66 PO; +BUME0.5T5 PO; +BUME1TAB8 PO; +CART1TAB5 PO; +CHOL10007 PO; +HYDR25TA4 PO; +LEVO75TA6 PO; +LISI20TA26 PO; +LISI40TA9 PO; +POTA-53 PO; +TIOT4MIS2 INH
--- NOTE | 2023-02-08 04:29 | ED Cardiac General ---
History of Present Illness General Stated Complaint: HEART RATE 157/115 Source: patient History of Present Illness Date Seen by Provider: Feb 08, 2023 Time Seen by Provider: 04:18 Initial Comments PT ARRIVES VIA POV FROM HOME SHE STATES 30-40 MINUTES AGO, SHE WOKE UP WITH RAPID AND IRREGULAR HEART BEAT--RATE 115-170 THIS RESOLVED SOON SHE ARRIVED IN ER. SHE HAD GENERALIZED BURNING ALL ACROSS HER CHEST, WITH SOME MILD SHORTNESS OF BREATH--THESE SYMPTOMS ARE GONE ALSO NO DIZZINESS OR SYNCOPE NO NEW SWELLING IN LEGS/FEET OR PAIN IN CALVES SHE HAS HISTORY OF ATRIAL FIBRILLATION AND HAD AN ABLATION LAST [address] CROWELL SHE IS CURRENTLY ON LISINOPRIL, ASPIRIN, KCL, AND ELIQUIS. SHE WAS ADMITTED OVERNIGHT HERE 01/25-01/26/23 FOR THIS SAME COMPLAINT, SHE WAS FOUND TO HAVE LOW POTASSIUM. SHE WAS TAKING BUMETANIDE AT THAT TIME, WITHOUT POTASSIUM SUPPLEMENT. SHE SAW DR. MILLS IN FOLLOW UP ON Sunday02/05/23. NO MEDICATION CHANGES PT STATES SHE HAS BEEN ON METOPROLOL, BUT IT CAUSED BRADYCARDIA AND IT WAS HELD. PT STATES DR. MILLS ADVISES HER SHE COULD TAKE IT ON AN NEEDED BASIS IF SHE HAD A RAPID HEART BEAT, BUT SHE DID NOT TAKE ANY TODAY SHE ADMITS TO FEELING ANXIOUS PCP: DR. 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 MILLS Allergies and Home Medications Allergies Coded Allergies: Sulfa (Sulfonamide Antibiotics) (Verified Allergy, Unknown, 08/14/21) acetaminophen (Verified Allergy, Unknown, 08/14/21) oxycodone (Verified Allergy, Unknown, 08/14/21) Patient Home Medication List Home Medication List Reviewed: Yes Acetaminophen (Tylenol Extra Strength) 500 Mg Tablet, 500-1,000 MG PO Q6H PRN for PAIN-MILD, (Reported) Entered as Reported by: MICHAEL JENKINS on 07/09/18 1306 Apixaban (Eliquis) 5 Mg Tablet, 5 MG PO BID, (Reported) Entered as Reported by: EMIL DINH on 01/26/23 0916 Aspirin (Aspirin EC) 81 Mg Tablet., 81 MG PO DAILY, (Reported) Entered as Reported by: NEETA MILLER on 01/18/22 1157 Atorvastatin Calcium (Atorvastatin Calcium) 10 Mg Tablet, 10 MG PO DAILY, (Reported) Entered as Reported by: EMIL DINH on 01/26/23 09 Bumetanide (Bumetanide) 0.5 Mg Tablet, 0.5 MG PO DAILY Prescribed by: ANDREWS MILLS on 01/26/23 08 Bupropion HCl (Bupropion HCl Sr) 100 Mg Tablet.er, 100 MG PO DAILY, (Reported) Entered as Reported by: JOHANNA SCOTT on 12/07/21 1227 Cartilage/Collagen/Bor/Hyalur (Joint Health Tablet) 40 Mg-10 Mg-5 Mg-3.3 Mg Tablet, 1 EACH PO DAILY, (Reported) Entered as Reported by: EMIL DINH on 01/26/23 09 Cholecalciferol (Vitamin D3) (Vitamin D3) 25 Mcg (1000 Unit) Capsule, 25 MCG PO DAILY, (Reported) Entered as Reported by: EMIL DINH on 01/26/23 09 Estradiol (Estradiol Tablet) 1 Mg Tablet, 1 MG PO DAILY, (Reported) Entered as Reported by: MICHAEL JENKINS on 07/09/18 1247 Gabapentin (Gabapentin) 300 Mg Capsule, 900 MG PO TID, (Reported) Entered as Reported by: MICHAEL JENKINS on 07/09/18 1256 Hydrocodone/Acetaminophen (Hydrocodone-Acetamin 5-325 mg) 1 Each Tablet, 1 TAB PO Q4H PRN for PAIN-MODERATE (5-7), (Reported) Entered as Reported by: NEETA MILLER on 01/18/22 1210 Levothyroxine Sodium (Levothyroxine Sodium) 75 Mcg Tablet, 75 MCG PO DAILY, (Reported) Entered as Reported by: EMIL DINH on 01/26/23 09 Lisinopril (Lisinopril) 20 Mg Tablet, 20 MG PO DAILY Prescribed by: ANDREWS MILLS on 01/26/23 08 Meloxicam (Mobic) 15 Mg Tablet, 15 MG PO DAILY, (Reported) Entered as Reported by: NEETA MILLER on 01/18/22 1157 Metoprolol Succinate (Toprol Xl) 25 Mg Tab.er.24h, 25 MG PO DAILY Prescribed by: ISAMAR BONNER on 02/08/23 0537 Multivits,Ca,Minerals/Iron/FA (Thera M Plus Tablet) 1 Each Tablet, 1 EACH PO DAILY, (Reported) Entered as Reported by: NEETA MILLER on 01/18/22 1157 Omeprazole (Omeprazole) 20 Mg Tablet.dr, 20 MG PO DAILY, (Reported) Entered as Reported by: NEETA MILLER on 01/18/22 1157 Potassium Chloride (K-Tab ER) 20 Meq Tablet.er, 20 MEQ PO DAILY Prescribed by: ANDREWS MILLS on 01/26/23 0801 Tiotropium [place] (Spiriva Respimat 2.5MCG/ACTUATION) 2.5 Mcg/Actuation Mist.inhal, 2 PUFF INH DAILY, (Reported) Entered as Reported by: EMIL DINH on 01/26/23 0931 Tizanidine HCl (Tizanidine HCl) 4 Mg Capsule, 4 MG PO Q6H PRN for SPASMS, (Reported) Entered as Reported by: NEETA MILLER on 01/18/22 1210 Vilazodone Hydrochloride (Viibryd) 40 Mg Tablet, 40 MG PO DAILY, (Reported) Entered as Reported by: OLEKSANDR NEWELL on 03/08/20 1548 Review of Systems Review of Systems Constitutional: no symptoms reported Respiratory: See HPI Cardiovascular: See HPI Gastrointestinal: No Symptoms Reported Genitourinary: No Symptoms Reported Musculoskeletal: no symptoms reported Skin: no symptoms reported Psychiatric/Neurological: See HPI, Anxiety Endocrine: No Symptoms Reported Hematologic/Lymphatic: No Symptoms Reported Past Xprkxby-Yogzsq-Hodemm Hx Immunizations Up To Date Tetanus Booster (TDap): Unknown PED Vaccines UTD: No First/Initial COVID19 Vaccinat: January 2021 Second COVID19 Vaccination Wes: February 2021 Third COVID19 Vaccination Date: AUGUST 2021 Seasonal Allergies Seasonal Allergies: No Past Medical History Surgery/Hospitalization HX: hysterectomy, GB, appendix, BACK SX, COPD, neuropathy, htn, HTN, AFIB WITH ABLATION Surgeries: Yes (diskectomy; laminectomy, back sx;CARDIAC ABLATION 05/2022 AT ) Appendectomy, Cardiac, Gallbladder, Hysterectomy, Orthopedic Respiratory: Yes COPD Cardiac: Yes (CARDIAC ABLATION 05/2022 AT /DR. 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 Sexually Transmitted Disease: No HIV/AIDS: No Genitourinary: No Gastrointestinal: Yes Colitis, Gastroesophageal Reflux, Polyps, Ulcer Musculoskeletal: Yes Degenerate Disk Disease, Back Injury, Chronic Back Pain Endocrine: Yes (OBESITY) Hypothyroidsim, Diabetes, Non-Insulin dep HEENT: No Cancer: No Psychosocial: Yes Anxiety, Depression Integumentary: No Blood Disorders: No Adverse Reaction/Blood Tranf: No Family Medical History Arthritis Asthma Cardiovascular disease Colon cancer Completed stroke FH: colon cancer Hypertension Myocardial infarction Psychosocial problem Respiratory disorder Physical Exam Vital Signs Vital Signs - First Documented 02/08/23 04:32 Temp 36.8 Pulse 73 Resp 16 B/P (MAP) 180/107 (131) Capillary Refill : Height, Weight, BMI Height: 5'5.00" Weight: 248lbs. 2.0oz. 112.274866aw; 45.42 BMI Method:Stated General Appearance: No Apparent Distress, WD/WN, Anxious, Obese Neck: Normal Inspection; No JVD Respiratory: Normal Breath Sounds, No Accessory Muscle Use, No Respiratory Distress Cardiovascular: Regular Rate, Rhythm, No Edema, No JVD, No Murmur, Normal Peripheral Pulses Gastrointestinal: Non Tender, Soft Extremity: Normal Capillary Refill, Normal Inspection, Normal Range of Motion, Non Tender, No Calf Tenderness, No Pedal Edema Neurologic/Psychiatric: Alert, Oriented x3, No Motor/Sensory Deficits, vehicle fare collector II- XII Norm as Tested Skin: Normal Color, Warm/Dry Progress/Results/Core Measures Results/Orders Lab Results Laboratory Tests Test 02/08/23 04:28 Range/Units White Blood Count 12.7 H 4.3-11.0 10^3/uL Red Blood Count 3.61 L 3.80-5.11 10^6/uL Hemoglobin 9.5 L 11.5-16.0 g/dL Hematocrit 31 L 35-52 % Mean Corpuscular Volume 85 80-99 fL Mean Corpuscular Hemoglobin 26 25-34 pg Mean Corpuscular Hemoglobin Concent 31 L 32-36 g/dL Red Cell Distribution Width 14.7 H 10.0-14.5 % Platelet Count 484 H 130-400 10^3/uL Mean Platelet Volume 9.5 9.0-12.2 fL Immature Granulocyte % (Auto) 1 % Neutrophils (%) (Auto) 69 42-75 % Lymphocytes (%) (Auto) 24 12-44 % Monocytes (%) (Auto) 6 0-12 % Eosinophils (%) (Auto) 0 0-10 % Basophils (%) (Auto) 0 0-10 % Neutrophils # (Auto) 8.8 H 1.8-7.8 10^3/uL Lymphocytes # (Auto) 3.1 1.0-4.0 10^3/uL Monocytes # (Auto) 0.8 0.0-1.0 10^3/uL Eosinophils # (Auto) 0.0 0.0-0.3 10^3/uL Basophils # (Auto) 0.0 0.0-0.1 10^3/uL Immature Granulocyte # (Auto) 0.1 0.0-0.1 10^3/uL Prothrombin Time 14.5 12.2-14.7 SEC INR Comment 1.1 0.8-1.4 Activated Partial Thromboplast Time 35 24-35 SEC D-Dimer < 0.22 0.00-0.49 UG/ML Sodium Level 141 135-145 MMOL/L Potassium Level 4.0 3.6-5.0 MMOL/L Chloride Level 106 98-107 MMOL/L Carbon Dioxide Level 23 21-32 MMOL/L Anion Gap 12 5-14 MMOL/L Blood Urea Nitrogen 18 7-18 MG/DL Creatinine 0.74 0.60-1.30 MG/DL Estimat Glomerular Filtration Rate 94 BUN/Creatinine Ratio 24 Glucose Level 101 70-105 MG/DL Calcium Level 8.9 8.5-10.1 MG/DL Corrected Calcium 9.1 8.5-10.1 MG/DL Magnesium Level 2.1 1.6-2.4 MG/DL Total Bilirubin 0.2 0.1-1.0 MG/DL Aspartate Amino Transf (AST/SGOT) 8 5-34 U/L Alanine Aminotransferase (ALT/SGPT) 15 0-55 U/L Alkaline Phosphatase 67 40-136 U/L Total Creatine Kinase 18 L 29-168 U/L Creatine Kinase MB 0.8 <6.6 NG/ML Myoglobin 19.4 10.0-92.0 NG/ML Troponin I < 0.028 <0.028 NG/ML B-Type Natriuretic Peptide 64.4 <100.0 PG/ML Total Protein 6.5 6.4-8.2 GM/DL Albumin 3.7 3.2-4.5 GM/DL Amylase Level 46 25-125 U/L Lipase 27 8-78 U/L My Orders Orders - ISAMAR BONNER DO Ekg Tracing (02/08/23 04:18) Monitor-Rhythm Ecg Trace Only (02/08/23 04:18) Ed Iv/Invasive Line Start (02/08/23 04:27) Cbc With Automated Diff (02/08/23 04:27) Magnesium (02/08/23 04:27) Chest 1 View, Ap/Pa Only (02/08/23 04:27) Comprehensive Metabolic Panel (02/08/23 04:27) Myoglobin Serum (02/08/23 04:27) Protime With Inr (02/08/23:27) Partial Thromboplastin Time (02/08/23:27) O2 (02/08/23 04:27) Creatine Kinase (02/08/23 04:27) Creatine Kinase Mb (02/08/23 04:27) Lipase (02/08/23 04:27) Amylase (02/08/23 04:27) Bnp Wilber (02/08/23 04:27) Aspirin Chewable Tablet (Baby Aspirin Ch (02/08/23 04:30) Fibrin Degradation Products (02/08/23 04:28) Troponin I Dupage (02/08/23 04:28) Metoprolol Tartrate Injection (Lopressor (02/08/23 05:00) Metoprolol Succinate (Xl) Tab (Toprol Xl (02/08/23 05:00) Medications Given in ED Current Medications Medications Dose Ordered Sig/Shannan Route Start Time Stop Time Status Last Admin Dose Admin Aspirin 324 mg ONCE ONCE PO 02/08/23 04:30 02/08/23 04:31 DC 02/08/23 04:44 324 MG Metoprolol Tartrate 5 mg ONCE ONCE IV 02/08/23 05:00 02/08/23 05:01 DC 02/08/23 05:02 5 MG Vital Signs/I&O 02/08/23 04:32 Temp 36.8 Pulse 73 Resp 16 B/P (MAP) 180/107 (131) Progress Progress Note : Progress Note PLACED ON MONITOR, PT IS IN NORMAL SINUS RHYTHM WITH RATE IN 70'S WITH PAC'S AND PVC'S BP IS ELEVATED ON ARRIVAL, GIVEN: -ASPIRIN -LOPRESSOR IV -TOPROL XL BY MOUTH NO DETERIORATION IN PT'S CONDITION DURING ER STAY PT HAD NO EPISODES OF TACHYCARDIA OR ATRIAL FIBRILLATION DURING ER STAY REVIEWED PRIOR RECORDS, ER VISITS, ADMITS/H&P'S/CONSULTS/DISCHARGE SUMMARIES, TESTS/PROCEDURES DISCUSSED TEST RESULTS, ANTICIPATED COURSE, MEDICATION, NEED FOR FOLLOW UP WITH DR. MILLS, AND RETURN PRECAUTIONS. Initial ECG Impression Date: Feb 08, 2023 Initial ECG Impression Time: 04:22 Initial ECG Rate: 73 Initial ECG Rhythm: Normal Sinus Initial ECG Intervals: Normal Initial ECG Comparisson: Unchanged Comment INTERPRETED BY ME Diagnostic Imaging Comments CXR--NO ACUTE PROCESS, PENDING RADIOLOGIST REVIEW Reviewed: Reviewed by Me Departure Communication (Admissions) [id number]--SPOKE WITH DR. MILLS, HE ADVISES TO SEND PT HOME WITH RX FOR TOPROL XL 25 AND HE WILL SEE PT IN OFFICE IN NEXT FEW DAYS Impression Primary Impression: Paroxysmal tachycardia Additional Impressions: History of atrial fibrillation HTN (hypertension) Disposition: 01 HOME, SELF-CARE Condition: Stable Departure-Patient Inst. Decision time for Depature: 05:30 Referrals: ADÁN FARFAN MD (PCP/Family) Primary Care Physician ANDREWS MILLS MD Patient Instructions: Atrial Fibrillation (DC), DASH Diet, High Blood Pressure ED, Tachycardia Add. Discharge Instructions: HOME, REST CONTINUE YOUR REGULAR MEDICATIONS GET THE PRESCRIPTION FOR TOPROL XL FILLED AND BEGIN TAKING IT TOMORROW MORNING FOLLOW UP WITH DR. MILLS IN THE NEXT FEW DAYS--CALL TODAY TO SCHEDULE AN APPOINTMENT RETURN TO ER IF SYMPTOMS WORSEN Scripts Metoprolol Succinate (Toprol Xl) 25 Mg Tab.er.24h 25 MG PO DAILY, #10 TAB Prov: ISAMAR BONNER DO 02/08/23 ISAMAR BONNER DO Feb 08, 2023 04:29
[2023-02-08] MEDS ORDERED: ASPIRIN 81 MG CHEW (CHILDREN'S ASA) PO ONE (04:30)
[2023-02-08 04:32] VITALS: BP 180/107
[2023-02-08 04:41] LABS: BASOPHILS % (AUTO) 0 % (0-10); EOSINOPHILS % (AUTO) 0 % (0-10); HEMATOCRIT 31 % (35-52); HEMOGLOBIN 9.5 g/dL (11.5-16.0); LYMPHOCYTES # (AUTO) 3.1 10^3/uL (1.0-4.0); LYMPHOCYTES % (AUTO) 24 % (12-44); MEAN CORPUSCULAR HEMOGLOBIN 26 pg (25-34); MEAN CORPUSCULAR HGB CONC 31 g/dL (32-36); MEAN CORPUSCULAR VOLUME 85 fL (80-99); MEAN PLATELET VOLUME 9.5 fL (9.0-12.2); MONOCYTES # (AUTO) 0.8 10^3/uL (0.0-1.0); MONOCYTES % (AUTO) 6 % (0-12); NEUTROPHILS # (AUTO) 8.8 10^3/uL (1.8-7.8); NEUTROPHILS % (AUTO) 69 % (42-75); PLATELET COUNT 484 10^3/uL (130-400); WHITE BLOOD COUNT 12.7 10^3/uL (4.3-11.0)
[2023-02-08 04:44] LABS: ALBUMIN 3.7 GM/DL (3.2-4.5); CHLORIDE 106 MMOL/L (98-107); SODIUM 141 MMOL/L (135-145)
[2023-02-08 04:45] LABS: AMYLASE 46 U/L (25-125); CALCIUM 8.9 MG/DL (8.5-10.1)
[2023-02-08 04:46] LABS: GLUCOSE 101 MG/DL (70-105); TOTAL PROTEIN 6.5 GM/DL (6.4-8.2)
[2023-02-08 04:47] LABS: CARBON DIOXIDE 23 MMOL/L (21-32)
[2023-02-08 04:48] LABS: BILIRUBIN,TOTAL 0.2 MG/DL (0.1-1.0)
[2023-02-08 04:50] LABS: ALKALINE PHOSPHATASE 67 U/L (40-136); CREATININE SERUM 0.74 MG/DL (0.60-1.30); GFR ESTIMATED 94
[2023-02-08 04:51] LABS: BUN/CREATININE RATIO 24
[2023-02-08 04:53] LABS: ALANINE AMINOTRANSFERASE 15 U/L (0-55); MAGNESIUM 2.1 MG/DL (1.6-2.4)
[2023-02-08 04:54] LABS: CREATINE KINASE 18 U/L (29-168); LIPASE 27 U/L (8-78)
[2023-02-08 04:58] LABS: INR 1.1 (0.8-1.4); PARTIAL THROMBOPLASTIN TIME 35 SEC (24-35); PROTHROMBIN TIME PATIENT 14.5 SEC (12.2-14.7)
[2023-02-08 05:00] LABS: CREATINE KINASE MB 0.8 NG/ML (<6.6)
[2023-02-08] MEDS ORDERED: meTOproloL SUCCINATE 50 MG (TOPROL XL) TAB PO SCH (05:00)
[2023-02-08] MEDS ORDERED: meTOprolol 5 MG/5 ML (LOPRESSOR) VIAL IV ONE (05:00)
[2023-02-08 05:01] LABS: FIBRIN DEGRADATION PRODUCTS < 0.22 UG/ML (0.00-0.49)
[2023-02-08] MEDS ORDERED: METO-351 PO (05:37)
--- NOTE | 2023-02-08 06:16 | Diagnostic Imaging Report ---
INDICATION: Chest pain Portable chest 5:23 AM Heart size and pulmonary vascularity are normal. Lungs are clear. There are no effusions or pneumothoraces. IMPRESSION: No acute abnormalities in the chest Dictated by: Dictated on workstation # [id number]
== END 2023-02-08 05:49 | disposition home or self-care (01) ==
LOC: EDUNIT# 04:11 → ER 04:13
DX: I47.9 Paroxysmal tachycardia, unspecified (principal); I48.91 Unspecified atrial fibrillation; I10 Essential (primary) hypertension; E66.9 Obesity, unspecified; Z68.41 Body mass index [BMI] 40.0-44.9, adult; Z79.01 Long term (current) use of anticoagulants; Z79.82 Long term (current) use of aspirin; Z79.899 Other long term (current) drug therapy
CPT/HCPCS: 36415; 71045; 80053; 82150; 82550; 82553; 83690; 83735; 83874; 83880; 84484; 85025; 85379; 85610; 85730; 93005; 93041

== ENCOUNTER 2023-02-19 15:50 | Emergency (ER) | payer MEDICARE, MEDICAID ==
[~2023-02-19 15:50] MED LIST changes: +METO-351 PO
--- NOTE | 2023-02-19 16:04 | ED Cardiac General ---
History of Present Illness General Chief Complaint: Cardiac/General Problems Stated Complaint: LOW HEART RATE Source: patient, EMS Exam Limitations: no limitations History of Present Illness Date Seen by Provider: Feb 19, 2023 Time Seen by Provider: 15:48 Initial Comments 57-year-old female presents via EMS for dizziness lightheadedness and reported bradycardia. She states she was at home and felt her heart "dropping beats." She used her phone to check her heart rate and states it was in the 20s. She saw Dr. Reaves, cardiology, last week. He did not change her metoprolol dosing. She states he dropped her lisinopril. Prior to today's events she denies any significant illness. No chest pain. She states she feels back to normal now. She had a cardiac ablation in [address] Hoskins at [facility]. She was admitted overnight on 01/25 for hypokalemia. She was on bumetadine with no potassium supplement which was though to be causitive. All other systems reviewed and negative except documented per HPI. Voice recognition software was used to help create this chart Allergies and Home Medications Allergies Coded Allergies: Sulfa (Sulfonamide Antibiotics) (Verified Allergy, Unknown, 08/14/21) acetaminophen (Verified Allergy, Unknown, 08/14/21) oxycodone (Verified Allergy, Unknown, 08/14/21) Patient Home Medication List Home Medication List Reviewed: Yes Acetaminophen (Tylenol Extra Strength) 500 Mg Tablet, 500-1,000 MG PO Q6H PRN for PAIN-MILD, (Reported) Entered as Reported by: MICHAEL JENKINS on 07/09/18 1306 Apixaban (Eliquis) 5 Mg Tablet, 5 MG PO BID, (Reported) Entered as Reported by: EMIL DINH on 01/26/23 0916 Aspirin (Aspirin EC) 81 Mg Tablet.dr, 81 MG PO DAILY, (Reported) Entered as Reported by: NEETA MILLER on 01/18/22 1157 Atorvastatin Calcium (Atorvastatin Calcium) 10 Mg Tablet, 10 MG PO DAILY, (Reported) Entered as Reported by: EMIL DINH on 01/26/23 0923 Bumetanide (Bumetanide) 0.5 Mg Tablet, 0.5 MG PO DAILY Prescribed by: ANDREWS REAVES on 01/26/23 0801 Bupropion HCl (Bupropion HCl Sr) 100 Mg Tablet.er, 100 MG PO DAILY, (Reported) Entered as Reported by: JOHANNA SCOTT on 12/07/21 1227 Cartilage/Collagen/Bor/Hyalur (Joint Health Tablet) 40 Mg-10 Mg-5 Mg-3.3 Mg Tablet, 1 EACH PO DAILY, (Reported) Entered as Reported by: EMIL DINH on 01/26/23 09 Cholecalciferol (Vitamin D3) (Vitamin D3) 25 Mcg (1000 Unit) Capsule, 25 MCG PO DAILY, (Reported) Entered as Reported by: EMIL DINH on 01/26/23 0921 Estradiol (Estradiol Tablet) 1 Mg Tablet, 1 MG PO DAILY, (Reported) Entered as Reported by: MICHAEL JENKINS on 07/09/18 1247 Gabapentin (Gabapentin) 300 Mg Capsule, 900 MG PO TID, (Reported) Entered as Reported by: MICHAEL JENKINS on 07/09/18 1256 Hydrocodone/Acetaminophen (Hydrocodone-Acetamin 5-325 mg) 1 Each Tablet, 1 TAB PO Q4H PRN for PAIN-MODERATE (5-7), (Reported) Entered as Reported by: NEETA MILLER on 01/18/22 1210 Levothyroxine Sodium (Levothyroxine Sodium) 75 Mcg Tablet, 75 MCG PO DAILY, (Reported) Entered as Reported by: EMIL DINH on 01/26/23 09 Lisinopril (Lisinopril) 20 Mg Tablet, 20 MG PO DAILY Prescribed by: ANDREWS REAVES on 01/26/23 0801 Meloxicam (Mobic) 15 Mg Tablet, 15 MG PO DAILY, (Reported) Entered as Reported by: NEETA MILLER on 01/18/22 1157 Metoprolol Succinate (Toprol Xl) 25 Mg Tab.er.24h, 25 MG PO DAILY Prescribed by: ISAMAR BONNER on 02/08/23 0537 Multivits,Ca,Minerals/Iron/FA (Thera M Plus Tablet) 1 Each Tablet, 1 EACH PO DAILY, (Reported) Entered as Reported by: NEETA MILLER on 01/18/22 1157 Omeprazole (Omeprazole) 20 Mg Tablet.dr, 20 MG PO DAILY, (Reported) Entered as Reported by: NEETA MILLER on 01/18/22 1157 Potassium Chloride (K-Tab ER) 20 Meq Tablet.er, 20 MEQ PO DAILY Prescribed by: ANDREWS REAVES on 01/26/23 0801 Tiotropium [place] (Spiriva Respimat 2.5MCG/ACTUATION) 2.5 Mcg/Actuation Mist.inhal, 2 PUFF INH DAILY, (Reported) Entered as Reported by: EMIL DINH on 01/26/23 0931 Tizanidine HCl (Tizanidine HCl) 4 Mg Capsule, 4 MG PO Q6H PRN for SPASMS, (Reported) Entered as Reported by: NEETA MILLER on 01/18/22 1210 Vilazodone Hydrochloride (Viibryd) 40 Mg Tablet, 40 MG PO DAILY, (Reported) Entered as Reported by: OLEKSANDR NEWELL on 03/08/20 1548 Review of Systems Review of Systems Constitutional: see HPI Past Dknmxjv-Agbyya-Yqdicb Hx Patient Social History Tobacco Use?: No Substance use?: No Alcohol Use?: No Pt feels they are or have been: No Immunizations Up To Date Tetanus Booster (TDap): Unknown PED Vaccines UTD: No First/Initial COVID19 Vaccinat: January 2021 Second COVID19 Vaccination Wes: February 2021 Third COVID19 Vaccination Date: AUGUST 2021 Seasonal Allergies Seasonal Allergies: No Past Medical History Surgery/Hospitalization HX: hysterectomy, GB, appendix, BACK SX, COPD, neuropathy, htn, HTN, AFIB WITH ABLATION Surgeries: Yes (diskectomy; laminectomy, back sx;CARDIAC ABLATION 05/2022 AT ) Appendectomy, Cardiac, Gallbladder, Hysterectomy, Orthopedic Respiratory: Yes COPD Cardiac: Yes (CARDIAC ABLATION 05/2022 AT /DR. 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 Sexually Transmitted Disease: No HIV/AIDS: No Genitourinary: No Gastrointestinal: Yes Colitis, Gastroesophageal Reflux, Polyps, Ulcer Musculoskeletal: Yes Degenerate Disk Disease, Back Injury, Chronic Back Pain Endocrine: Yes (OBESITY) Hypothyroidsim, Diabetes, Non-Insulin dep HEENT: No Cancer: No Psychosocial: Yes Anxiety, Depression Integumentary: No Blood Disorders: No Adverse Reaction/Blood Tranf: No Family Medical History Arthritis Asthma Cardiovascular disease Colon cancer Completed stroke FH: colon cancer Hypertension Myocardial infarction Psychosocial problem Respiratory disorder Physical Exam Vital Signs Vital Signs - First Documented 02/19/23 15:53 Temp 37.0 Pulse 78 Resp 20 B/P (MAP) 167/67 (100) Pulse Ox 100 O2 Delivery Room Air Capillary Refill : Less Than 3 Seconds Height, Weight, BMI Height: 5'5.00" Weight: 248lbs. 2.0oz. 112.451382gy; 44.00 BMI Method:Stated General Appearance: No Apparent Distress, WD/WN HEENT: Normal ENT Inspection, Pharynx Normal Neck: Full Range of Motion, Normal Inspection, Non Tender, Supple Respiratory: Chest Non Tender, Lungs Clear, Normal Breath Sounds, No Accessory Muscle Use, No Respiratory Distress Cardiovascular: Regular Rate, Rhythm, Normal Peripheral Pulses, Other (Frequent PVCs, occasional PAC) Gastrointestinal: Normal Bowel Sounds, No Organomegaly, No Pulsatile Mass, Non Tender, Soft Extremity: Normal Capillary Refill, Normal Inspection, Normal Range of Motion, Non Tender, No Calf Tenderness, No Pedal Edema Neurologic/Psychiatric: Alert, Oriented x3 Skin: Normal Color, Warm/Dry Progress/Results/Core Measures Results/Orders Lab Results Laboratory Tests Test 02/19/23 15:57 Range/Units White Blood Count 13.6 H 4.3-11.0 10^3/uL Red Blood Count 3.74 L 3.80-5.11 10^6/uL Hemoglobin 9.5 L 11.5-16.0 g/dL Hematocrit 32 L 35-52 % Mean Corpuscular Volume 85 80-99 fL Mean Corpuscular Hemoglobin 25 25-34 pg Mean Corpuscular Hemoglobin Concent 30 L 32-36 g/dL Red Cell Distribution Width 14.9 H 10.0-14.5 % Platelet Count 406 H 130-400 10^3/uL Mean Platelet Volume 9.6 9.0-12.2 fL Immature Granulocyte % (Auto) 2 % Neutrophils (%) (Auto) 68 42-75 % Lymphocytes (%) (Auto) 24 12-44 % Monocytes (%) (Auto) 5 0-12 % Eosinophils (%) (Auto) 1 0-10 % Basophils (%) (Auto) 1 0-10 % Neutrophils # (Auto) 9.2 H 1.8-7.8 10^3/uL Lymphocytes # (Auto) 3.3 1.0-4.0 10^3/uL Monocytes # (Auto) 0.7 0.0-1.0 10^3/uL Eosinophils # (Auto) 0.1 0.0-0.3 10^3/uL Basophils # (Auto) 0.1 0.0-0.1 10^3/uL Immature Granulocyte # (Auto) 0.2 H 0.0-0.1 10^3/uL Sodium Level 139 135-145 MMOL/L Potassium Level 3.3 L 3.6-5.0 MMOL/L Chloride Level 108 H 98-107 MMOL/L Carbon Dioxide Level 21 21-32 MMOL/L Anion Gap 10 5-14 MMOL/L Blood Urea Nitrogen 12 7-18 MG/DL Creatinine 0.73 0.60-1.30 MG/DL Estimat Glomerular Filtration Rate 96 BUN/Creatinine Ratio 16 Glucose Level 103 70-105 MG/DL Calcium Level 9.0 8.5-10.1 MG/DL Magnesium Level 1.9 1.6-2.4 MG/DL Troponin I < 0.028 <0.028 NG/ML My Orders Orders - GERALD MAKI DO Cbc With Automated Diff (02/19/23 15:59) Basic Metabolic Panel (02/19/23 15:59) Magnesium (02/19/23 15:59) Ekg Tracing (02/19/23 15:59) Troponin I Wilber (02/19/23 15:59) Potassium Chloride (Tablet) (K Dur Table (02/19/23 16:45) Vital Signs/I&O 02/19/23 15:53 Temp 37.0 Pulse 78 Resp 20 B/P (MAP) 167/67 (100) Pulse Ox 100 O2 Delivery Room Air Comment Sinus rhythm with trigeminy. 69 bpm. Normal intervals. Normal axis. No ST or T wave abnormalities. Departure Communication (Admissions) Patient is hemodynamically stable. 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 Her potassium is slightly low. She has not been taking her potassium supplementation that she was told not to unless she is on bumetanide. We have given her 40 p.o. potassium here and she will continue to take her home potassium supplement for the next 3 days and have this rechecked with her primary care doctor. Her magnesium is normal. Focal Dr. Reaves and he has no further recommendations. He believes patient safe for discharge home and follow-up with Dr. Hoskins. The patient is comfortable agreeable this plan of care. Impression Primary Impression: Atrial trigeminy Disposition: HOME, SELF-CARE Condition: Stable Departure-Patient Inst. Referrals: ADÁN FARFAN MD (PCP/Family) Primary Care Physician Patient Instructions: Ventricular Premature Beats Add. Discharge Instructions: Take the potassium supplement for 3 days and have your potassium rechecked with your primary care doctor's office to see if you need to continue this. Return to the emergency department immediately develop any chest pain or if your symptoms change in any way concerning to you. Follow-up with Dr. Hoskins as discussed with Dr. Reaves All discharge instructions reviewed with patient and/or family. Voiced understanding. GERALD MAKI DO Feb 19, 2023 16:04
[2023-02-19 16:08] LABS: BASOPHILS # (AUTO) 0.1 10^3/uL (0.0-0.1); BASOPHILS % (AUTO) 1 % (0-10); EOSINOPHILS # (AUTO) 0.1 10^3/uL (0.0-0.3); EOSINOPHILS % (AUTO) 1 % (0-10); HEMATOCRIT 32 % (35-52); HEMOGLOBIN 9.5 g/dL (11.5-16.0); LYMPHOCYTES # (AUTO) 3.3 10^3/uL (1.0-4.0); LYMPHOCYTES % (AUTO) 24 % (12-44); MEAN CORPUSCULAR HEMOGLOBIN 25 pg (25-34); MEAN CORPUSCULAR HGB CONC 30 g/dL (32-36); MEAN CORPUSCULAR VOLUME 85 fL (80-99); MEAN PLATELET VOLUME 9.6 fL (9.0-12.2); MONOCYTES # (AUTO) 0.7 10^3/uL (0.0-1.0); MONOCYTES % (AUTO) 5 % (0-12); NEUTROPHILS # (AUTO) 9.2 10^3/uL (1.8-7.8); NEUTROPHILS % (AUTO) 68 % (42-75); PLATELET COUNT 406 10^3/uL (130-400); WHITE BLOOD COUNT 13.6 10^3/uL (4.3-11.0)
[2023-02-19 16:14] LABS: CHLORIDE 108 MMOL/L (98-107); POTASSIUM 3.3 MMOL/L (3.6-5.0); SODIUM 139 MMOL/L (135-145)
[2023-02-19 16:16] LABS: GLUCOSE 103 MG/DL (70-105)
[2023-02-19 16:17] LABS: CARBON DIOXIDE 21 MMOL/L (21-32)
[2023-02-19 16:19] LABS: CREATININE SERUM 0.73 MG/DL (0.60-1.30); GFR ESTIMATED 96
[2023-02-19 16:20] LABS: BUN/CREATININE RATIO 16
[2023-02-19 16:22] LABS: MAGNESIUM 1.9 MG/DL (1.6-2.4)
[2023-02-19] MEDS ORDERED: KCL 20 MEQ TAB (K-DUR) PO ONE (16:45)
[2023-02-19 17:06] VITALS: BP 167/87
== END 2023-02-19 17:06 | disposition home or self-care (01) ==
LOC: EDUNIT# 15:50 → ER 15:52
DX: R00.8 Other abnormalities of heart beat (principal); E66.9 Obesity, unspecified; Z68.41 Body mass index [BMI] 40.0-44.9, adult; Z86.79 Personal history of other diseases of the circulatory system
CPT/HCPCS: 36415; 80048; 83735; 84484; 85025; 93005

== ENCOUNTER → 2023-10-01 | Outpatient (CLI) | payer MEDICARE, OTHER ==
[~2023-10-01] MED LIST changes: -POTA10CA44 PO; +POTA10CA84 PO
--- NOTE | 2023-10-01 11:23 | Diagnostic Imaging Report ---
PROCEDURE: US carotid duplex, bilateral. TECHNIQUE: Multiple real-time grayscale images were obtained over the carotid arteries in various projections, bilaterally. Additional spectral analysis and color Doppler duplex images were also obtained. INDICATION: Pulsatile tinnitus. FINDINGS: There is mild atherosclerotic plaque within the left common carotid artery, however no occlusion or velocity elevation is identified. There is tortuosity of internal carotid arteries without significant stenosis. There is no occlusion. There is antegrade flow within both vertebral arteries. IMPRESSION: No ultrasound evidence of hemodynamically significant stenosis. Parameters based on the consensus panel Carey-Scale and Doppler ultrasound criteria published August 2003, Radiology, Volume 229. DOPPLER (peak systolic velocity M/S Right Left CCA 1.1 1.2 ICA Proximal 1.4 .93 ICA Mid 1.3 .87 ICA Distal .95 .9 RATIO 1.3 .8 ECA .98 1.1 VERT .44 .5 Dictated by: Dictated on workstation # [id number]
== END ==
LOC: RAD 09:08
PROVIDERS: ATTEND Otolaryngology Otolaryngology/Facial Plastic Surgery
DX: H93.A9 Pulsatile tinnitus, unspecified ear (principal)
CPT/HCPCS: 93880

== ENCOUNTER 2023-10-04 16:22 | Emergency (ER) | payer MEDICARE ==
[~2023-10-04] VITALS: Ht 162.5 cm; Wt 100.6 kg
--- NOTE | 2023-10-04 16:47 | ED General ---
General Stated Complaint: LOW HEMOGLOBIN Source of Information: Patient Exam Limitations: No Limitations (GERALD MAKI DO) History of Present Illness Date Seen by Provider: Oct 04, 2023 Time Seen by Provider: 16:33 Initial Comments 58-year-old female presents after she was called by the [facility] clinic for blood work that she had yesterday. She was told her hemoglobin was 6.8 and advised to come to the emergency department. She denies any fatigue more than usual. No chest pain, shortness of breath dizziness or lightheadedness. No vaginal bleeding, dark tarry stools, blood in her urine or easy bleeding, bruising. All other systems reviewed and negative except documented per HPI. Voice recognition software was used to help create this chart (GERALD MAKI DO) Allergies and Home Medications Allergies Coded Allergies: Sulfa (Sulfonamide Antibiotics) (Verified Allergy, Unknown, 08/14/21) acetaminophen (Verified Allergy, Unknown, 08/14/21) oxycodone (Verified Allergy, Unknown, 08/14/21) Patient Home Medication List Home Medication List Reviewed: Yes (GERALD MAKI DO) Acetaminophen (Tylenol Extra Strength) 500 Mg Tablet, 500-1,000 MG PO Q6H PRN for PAIN-MILD, (Reported) Entered as Reported by: MICHAEL JENKINS on 07/09/18 1306 Apixaban (Eliquis) 5 Mg Tablet, 5 MG PO BID, (Reported) Entered as Reported by: EMIL DINH on 01/26/23 0916 Aspirin (Aspirin EC) 81 Mg Tablet.dr, 81 MG PO DAILY, (Reported) Entered as Reported by: NEETA MILLER on 01/18/22 1157 Atorvastatin Calcium (Atorvastatin Calcium) 10 Mg Tablet, 10 MG PO DAILY, (Reported) Entered as Reported by: EMIL DINH on 01/26/23 0923 Bumetanide (Bumetanide) 0.5 Mg Tablet, 0.5 MG PO DAILY Prescribed by: ANDREWS MILLS on 01/26/23 0801 Bupropion HCl (Bupropion HCl Sr) 100 Mg Tablet.er, 100 MG PO DAILY, (Reported) Entered as Reported by: JOHANNA SCOTT on 12/07/21 1227 Cartilage/Collagen/Bor/Hyalur (Joint Health Tablet) 40 Mg-10 Mg-5 Mg-3.3 Mg Tablet, 1 EACH PO DAILY, (Reported) Entered as Reported by: EMIL DINH on 01/26/23 09 Cholecalciferol (Vitamin D3) (Vitamin D3) 25 Mcg (1000 Unit) Capsule, 25 MCG PO DAILY, (Reported) Entered as Reported by: EMIL DINH on 01/26/23 09 Estradiol (Estradiol Tablet) 1 Mg Tablet, 1 MG PO DAILY, (Reported) Entered as Reported by: MICHAEL JENKINS on 07/09/18 1247 Gabapentin (Gabapentin) 300 Mg Capsule, 900 MG PO TID, (Reported) Entered as Reported by: MICHAEL JENKINS on 07/09/18 1256 Hydrocodone/Acetaminophen (Hydrocodone-Acetamin 5-325 mg) 1 Each Tablet, 1 TAB PO Q4H PRN for PAIN-MODERATE (5-7), (Reported) Entered as Reported by: NEETA MILLER on 01/18/22 1210 Levothyroxine Sodium (Levothyroxine Sodium) 75 Mcg Tablet, 75 MCG PO DAILY, (Reported) Entered as Reported by: EMIL DINH on 01/26/23924 Lisinopril (Lisinopril) 20 Mg Tablet, 20 MG PO DAILY Prescribed by: ANDREWS MILLS on 01/26/23 08 Meloxicam (Mobic) 15 Mg Tablet, 15 MG PO DAILY, (Reported) Entered as Reported by: NEETA MILLER on 01/18/22 115 Metoprolol Succinate (Toprol Xl) 25 Mg Tab.er.24h, 25 MG PO DAILY Prescribed by: ISAMAR BONNER on 02/08/23 0537 Multivits,Ca,Minerals/Iron/FA (Thera M Plus Tablet) 1 Each Tablet, 1 EACH PO DAILY, (Reported) Entered as Reported by: NEETA MILLER on 01/18/22 115 Omeprazole (Omeprazole) 20 Mg Tablet.dr, 20 MG PO DAILY, (Reported) Entered as Reported by: NEETA MILLER on 01/18/22 115 Potassium Chloride (K-Tab ER) 20 Meq Tablet.er, 20 MEQ PO DAILY Prescribed by: ANDREWS MILLS on 01/26/23 08 Tiotropium Nada (Spiriva Respimat 2.5MCG/ACTUATION) 2.5 Mcg/Actuation Mist.inhal, 2 PUFF INH DAILY, (Reported) Entered as Reported by: EMIL DINH on 01/26/23 0931 Tizanidine HCl (Tizanidine HCl) 4 Mg Capsule, 4 MG PO Q6H PRN for SPASMS, (Reported) Entered as Reported by: NEETA MILLER on 01/18/22 1210 Vilazodone Hydrochloride (Viibryd) 40 Mg Tablet, 40 MG PO DAILY, (Reported) Entered as Reported by: OLEKSANDR NEWELL on 03/08/20 1548 Review of Systems Review of Systems Constitutional: see HPI (GERALD MAKI DO) Past Bgqjdrr-Ilueyy-Gvknhu Hx Patient Social History Tobacco Use?: No Use of E-Cig and/or Vaping dev: No Substance use?: No Alcohol Use?: No (GERALD MAKI DO) Immunizations Up To Date Tetanus Booster (TDap): Unknown PED Vaccines UTD: No First/Initial COVID19 Vaccinat: January 2021 Second COVID19 Vaccination Wes: February 2021 Third COVID19 Vaccination Date: AUGUST 2021 (GERALD MAKI DO) Seasonal Allergies Seasonal Allergies: No (GERALD MAKI DO) Past Medical History Surgery/Hospitalization HX: hysterectomy, GB, appendix, BACK SX, COPD, neuropathy, htn, HTN, AFIB WITH ABLATION Surgeries: Yes (diskectomy; laminectomy, back sx;CARDIAC ABLATION 05/2022 AT ) Appendectomy, Cardiac, Gallbladder, Hysterectomy, Orthopedic Respiratory: Yes COPD Cardiac: Yes (CARDIAC ABLATION 05/2022 AT /DR. 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 Sexually Transmitted Disease: No HIV/AIDS: No Genitourinary: No Gastrointestinal: Yes Colitis, Gastroesophageal Reflux, Polyps, Ulcer Musculoskeletal: Yes Degenerate Disk Disease, Back Injury, Chronic Back Pain Endocrine: Yes (OBESITY) Hypothyroidsim, Diabetes, Non-Insulin dep HEENT: No Cancer: No Psychosocial: Yes Anxiety, Depression Integumentary: No Blood Disorders: No Adverse Reaction/Blood Tranf: No (GLYNN,GERALD L DO) Family Medical History Arthritis Asthma Cardiovascular disease Colon cancer Completed stroke FH: colon cancer Hypertension Myocardial infarction Psychosocial problem Respiratory disorder Physical Exam Vital Signs Vital Signs - First Documented 10/04/23 16:41 Temp 36.7 Pulse 75 Resp 16 B/P (MAP) 150/80 (103) Pulse Ox 96 O2 Delivery Room Air (RIVAS MAYS MD) Vital Signs Capillary Refill : (GERALD MAKI DO) Height, Weight, BMI Height: 5'5.00" Weight: 248lbs. 2.0oz. 112.401927fl; 44.00 BMI Method:Stated General Appearance: No Apparent Distress, WD/WN HEENT: Normal ENT Inspection, Pharynx Normal Neck: Normal Inspection, Non Tender, Supple Respiratory: Chest Non Tender, Lungs Clear, Normal Breath Sounds, No Accessory Muscle Use, No Respiratory Distress Cardiovascular: Regular Rate, Rhythm, No Murmur, Normal Peripheral Pulses Gastrointestinal: Normal Bowel Sounds, No Organomegaly, Non Tender, Soft Neurologic/Psychiatric: Alert, Oriented x3, No Motor/Sensory Deficits Skin: Normal Color, Warm/Dry (GERALD MAKI DO) Progress/Results/Core Measures Suspected Sepsis SIRS Temperature: Pulse: Respiratory Rate: Laboratory Tests 10/04/23 17:00: White Blood Count 8.9 Blood Pressure / Mean: Laboratory Tests 10/04/23 17:00: Platelet Count 482H (GERALD MAKI DO) Results/Orders Lab Results Laboratory Tests Test 10/04/23 17:00 Range/Units White Blood Count 8.9 4.3-11.0 10^3/uL Red Blood Count 3.28 L 3.80-5.11 10^6/uL Hemoglobin 6.9 *L 11.5-16.0 g/dL Hematocrit 25 L 35-52 % Mean Corpuscular Volume 76 L 80-99 fL Mean Corpuscular Hemoglobin 21 L 25-34 pg Mean Corpuscular Hemoglobin Concent 28 L 32-36 g/dL Red Cell Distribution Width 16.9 H 10.0-14.5 % Platelet Count 482 H 130-400 10^3/uL Mean Platelet Volume 10.5 9.0-12.2 fL Immature Granulocyte % (Auto) 0 % Neutrophils (%) (Auto) 57 42-75 % Lymphocytes (%) (Auto) 35 12-44 % Monocytes (%) (Auto) 6 0-12 % Eosinophils (%) (Auto) 2 0-10 % Basophils (%) (Auto) 1 0-10 % Neutrophils # (Auto) 5.1 1.8-7.8 10^3/uL Lymphocytes # (Auto) 3.1 1.0-4.0 10^3/uL Monocytes # (Auto) 0.5 0.0-1.0 10^3/uL Eosinophils # (Auto) 0.2 0.0-0.3 10^3/uL Basophils # (Auto) 0.1 0.0-0.1 10^3/uL Immature Granulocyte # (Auto) 0.0 0.0-0.1 10^3/uL Prothrombin Time 15.3 H 12.2-14.7 SEC INR Comment 1.2 0.8-1.4 Sodium Level 142 135-145 MMOL/L Potassium Level 2.7 L 3.6-5.0 MMOL/L Chloride Level 107 98-107 MMOL/L Carbon Dioxide Level 25 21-32 MMOL/L Anion Gap 10 5-14 MMOL/L Blood Urea Nitrogen 15 7-18 MG/DL Creatinine 0.72 0.60-1.30 MG/DL Estimat Glomerular Filtration Rate 97 BUN/Creatinine Ratio 21 Glucose Level 107 H 70-105 MG/DL Calcium Level 8.6 8.5-10.1 MG/DL Corrected Calcium 9.1 8.5-10.1 MG/DL Total Bilirubin 0.1 0.1-1.0 MG/DL Aspartate Amino Transf (AST/SGOT) 10 5-34 U/L Alanine Aminotransferase (ALT/SGPT) 8 0-55 U/L Alkaline Phosphatase 77 40-136 U/L Total Protein 6.5 6.4-8.2 GM/DL Albumin 3.4 3.2-4.5 GM/DL (RIVAS MAYS MD) My Orders Orders - RIVAS MAYS MD Potassium Chloride (Tablet) (Potassium C (10/04/23 19:00) (RIVAS MAYS MD) Medications Given in ED Current Medications Medications Dose Ordered Sig/Shannan Route Start Time Stop Time Status Last Admin Dose Admin Potassium Chloride 40 meq ONCE ONCE PO 10/04/23 19:00 10/04/23 19:01 DC 10/04/23 19:24 40 MEQ Sodium Chloride 250 ml @ ud STK-MED ONCE .ROUTE 10/04/23 17:52 10/04/23 17:54 DC 10/04/23 18:07 200 MLS/HR (RIVAS MAYS MD) Vital Signs/I&O 10/04/23 10/04/23 10/04/23 10/04/23 16:41 18:00 18:10 18:19 Temp 36.7 36.6 36.8 36.8 Pulse 75 66 64 67 Resp 16 20 20 20 B/P (MAP) 150/80 (103) 126/64 133/70 144/76 Pulse Ox 96 98 96 94 O2 Delivery Room Air Room Air Room Air 10/04/23 19:53 Temp 36.1 Pulse 56 Resp 16 B/P (MAP) 135/79 Pulse Ox 97 O2 Delivery Room Air (RIVAS MAYS MD) Vital Signs/I&O Capillary Refill : (GERALD MAKI DO) Progress Note : Time: 17:17 Progress Note Patient hemoglobin is 6.9. I discussed transfusion now versus discharge and transfusion as she was initially hesitant to get an IV or stay for transfusion. She is agreeable to transfusion of blood at this time. She is relatively asymptomatic with normal vital signs so I suspect that her blood loss is chronic in nature. Is microcytic making iron deficiency the most likely culprit. I have ordered 1 unit PRBCs to be transfused, pending crossmatch at this time. (GERALD MAKI DO) Progress Note : Progress Note 800: Assumed care of the patient from Dr. Maki pending completion of transfusion. Hemoglobin 6. Pending CMP. Monitor patient. 1899: Coags noted and consistent with Eliquis use. CMP reviewed. Potassium noted to be 2.7. KCl 40 mill equivalents p.o. ordered. Monitor patient. 1954: Patient tolerated p.o. potassium okay. She did mention that she eats quite a bit of peppermint. I do not see any adverse reactions for peppermint that would cause anemia. She will follow-up with Dr. Gibbs and we will send a copy of the chart to her. She has potassium tablets at home that she can take and she will take that over the next few days and follow-up with Dr. Gibbs for recheck of labs and also continued workup on her anemia. Discharged her in about 30 minutes if she is not showing any signs of reaction. Monitor patient. (RIVAS MAYS MD) Departure Impression Primary Impression: Microcytic anemia Additional Impression: Hypokalemia Disposition: 01 HOME, SELF-CARE Condition: Stable Departure-Patient Inst. Referrals: NO,LOCAL PHYSICIAN (PCP/Family) Primary Care Physician Patient Instructions: Anemia, Possibly From Low Iron, Adult ED, Hypokalemia (DC) Add. Discharge Instructions: You should take your potassium supplement daily. Follow-up with Dr. Gibbs for recheck and further evaluation of both the anemia (low blood count) as well as the low potassium level. Discussed with her your diet currently. Also discussed the peppermint use. Return for dark or bloody stools, weakness, vomiting, breathing problems, chest pain or other concerns as needed. Continue other home medications as previously prescribed. Talk with Dr. Gibbs about colonoscopy as well given your low blood counts. Copy Copies To 1: BRAULIO GIBBS KENNETH L DO Oct 04, 2023 16:47 RIVAS MAYS MD Oct 04, 2023 20:02
[2023-10-04 17:10] LABS: BASOPHILS # (AUTO) 0.1 10^3/uL (0.0-0.1); BASOPHILS % (AUTO) 1 % (0-10); EOSINOPHILS # (AUTO) 0.2 10^3/uL (0.0-0.3); EOSINOPHILS % (AUTO) 2 % (0-10); HEMATOCRIT 25 % (35-52); LYMPHOCYTES # (AUTO) 3.1 10^3/uL (1.0-4.0); LYMPHOCYTES % (AUTO) 35 % (12-44); MEAN CORPUSCULAR HEMOGLOBIN 21 pg (25-34); MEAN CORPUSCULAR HGB CONC 28 g/dL (32-36); MEAN CORPUSCULAR VOLUME 76 fL (80-99); MEAN PLATELET VOLUME 10.5 fL (9.0-12.2); MONOCYTES # (AUTO) 0.5 10^3/uL (0.0-1.0); MONOCYTES % (AUTO) 6 % (0-12); NEUTROPHILS # (AUTO) 5.1 10^3/uL (1.8-7.8); NEUTROPHILS % (AUTO) 57 % (42-75); PLATELET COUNT 482 10^3/uL (130-400); WHITE BLOOD COUNT 8.9 10^3/uL (4.3-11.0)
[2023-10-04 17:11] LABS: HEMOGLOBIN 6.9 g/dL (11.5-16.0)
[2023-10-04] MEDS ORDERED: NS IV 500 ML 500 ML IV SCH (17:15)
[2023-10-04 17:19] LABS: INR 1.2 (0.8-1.4); PROTHROMBIN TIME PATIENT 15.3 SEC (12.2-14.7)
[2023-10-04 17:20] LABS: ALBUMIN 3.4 GM/DL (3.2-4.5); POTASSIUM 2.7 MMOL/L (3.6-5.0)
[2023-10-04 17:21] LABS: CALCIUM 8.6 MG/DL (8.5-10.1)
[2023-10-04 17:23] LABS: TOTAL PROTEIN 6.5 GM/DL (6.4-8.2)
[2023-10-04 17:24] LABS: BILIRUBIN,TOTAL 0.1 MG/DL (0.1-1.0)
[2023-10-04 17:26] LABS: CREATININE SERUM 0.72 MG/DL (0.60-1.30)
[2023-10-04] MEDS ORDERED: NS (IVPB) 250 ML 250 ML ONE (17:52)
[2023-10-04 18:00] VITALS: BP 126/64
[2023-10-04 18:10] VITALS: BP 133/70
[2023-10-04 18:19] VITALS: BP 144/76
[2023-10-04] MEDS ORDERED: POTASSIUM CHLORIDE 20 MEQ TABLET PO ONE (19:00)
[2023-10-04 19:53] VITALS: BP 135/79
[2023-10-04 20:37] VITALS: BP 147/87
== END 2023-10-04 20:37 | disposition home or self-care (01) ==
LOC: EDUNIT# 16:22 → ER 16:25
DX: D50.9 Iron deficiency anemia, unspecified (principal); E87.6 Hypokalemia; E66.9 Obesity, unspecified; Z68.38 Body mass index [BMI] 38.0-38.9, adult
CPT/HCPCS: 80053; 85025; 85610; 86850; 86900; 86901; 86920; 99283; P9016; 36415